=== PATIENT | female | born 1950 | race Caucasian/White ===

== ENCOUNTER 2018-04-21 23:12 | Inpatient (IN) | payer OTHER ==
--- NOTE | 2018-04-21 23:46 | PDOC ---
Attending Attestation - HPI HPI: 04/22/18 00:00 The patient is a 67 year old female, with a significant past medical history of MR, who presents to the emergency department via EMS from [place] with, sudden onset shortness of breath, low O2 saturation, and tachycardia. Patient is DNR. Social history: [facility] resident. DNR. <YamilethAubrie - Last Filed: 04/22/18 00:00> - Physicial Exam PE: GENERAL: +Quadriplegia secondary to cerebral palsy. +Flexed and unable to move. +Afebrile. In no acute distress HEAD: No signs of trauma EYES: PERRLA, EOMI, sclera anicteric, conjunctiva clear ENT: Auricles normal inspection, hearing grossly normal, nares patent.. Moist mucosa LUNGS: Breath sounds equal, clear to auscultation bilaterally. No wheezes, and no crackles HEART: Regular rate and rhythm, normal S1 and S2, no murmurs, rubs or gallops ABDOMEN: +PEG tube in place in LUQ. Soft, nontender, normoactive bowel sounds. No guarding, no rebound. No masses EXTREMITIES: +Bilateral legs are withered. +Arm and leg growth is stunted. + Bilateral clubbed feet. +Flexed and unable to move. +Left proximal humeral fracture. No cords, erythema, or tenderness NEUROLOGICAL: Cranial nerves II through XII grossly intact. Normal speech, normal gait SKIN: Warm, Dry, normal turgor, no rashes or lesions noted. 04/22/18 00:30 - Medical Decision Making Documentation prepared by SWATHI Gillespie, acting as medical referral coordinator for Lynda Acuna MD. 04/22/18 00:30 <Eugenia Rendon - Last Filed: 04/22/18 00:30> - Resident Resident Name: Rosio Lund - ED Attending Attestation I have performed the following: I have examined & evaluated the patient, The case was reviewed & discussed with the resident, I agree w/resident's findings & plan - Medical Decision Making 04/22/18 01:50 Pt has an aspiration pneumonia; 17 WBC with left shift; +lactic acid; Pt is flu negative, CXR right sided infiltrate Pt will be treated with ABX and admitted. <Lynda Acuna - Last Filed: 04/22/18 06:13> Attestations - Attestations 04/22/18 00:00 Documentation prepared by Aubrie Carson, acting as medical referral coordinator for Lynda Acuna MD. <Aubrie Carson - Last Filed: 04/22/18 00:00>
--- NOTE | 2018-04-21 23:47 | PDOC ---
History of Present Illness - General Chief Complaint: Shortness of Breath Stated Complaint: Shortness of Breath Time Seen by Provider: 04/21/18 23:20 History Source: Patient - History of Present Illness Initial Comments: 04/22/18 00:[address] Marlon Lott from conversation with staff at [place] The patient is a 67 year old female with a PMH of cerebral anoxic brain injury, quadriplegia, COPD (on O2), L arm fracture who presents to our ED tonight following an episode of desaturation (SpO2 88%) and diaphoresis. At baseline patient is GCS 3. As per MOLST form, patient is DNR but can be intubated. Past History - Past Medical History Allergies/Adverse Reactions: Allergies Allergy/AdvReac Type Severity Reaction Status Date / Time No Known Allergies Allergy Verified 04/22/18 02:54 Home Medications: Ambulatory Orders Alendronate Sodium [Binosto] 70 mg GT WEEKLY 04/22/18 Arformoterol Tartrate [Brovana] 15 mcg IH BID 04/22/18 Ascorbic Acid 500 mg GT BID 04/22/18 Budesonide 1 mg IH BID 04/22/18 Calcium Carbonate/Vitamin D3 [Oystercal-D 500 mg-400 Unit Tb] 2 each GT HS 04/22 Ipratropium/Albuterol Sulfate [Iprat-Albut 0.5-3(2.5) mg/3 ml] 1 vial IH QID Lactulose 30 ml GT DAILY 04/22/18 Metoclopramide HCl 5 mg PO QID 04/22/18 Metoprolol Tartrate [Lopressor -] 50 mg GT BID 04/22/18 Olopatadine HCl 1 drop OU DAILY 04/22/18 Omeprazole 20 mg GT DAILY 04/22/18 Simvastatin 40 mg GT DAILY 04/22/18 Topiramate 1 tab GT BID 04/22/18 Valproic Acid (As Sodium Salt) [Valproic Acid] 15 ml GT Q12H 04/22/18 Zinc Oxide [Boudreauxs] 10 gm TP BID 04/22/18 levETIRAcetam [levETIRAcetam ORAL SUSPENSION] 15 ml GT BID 04/22/18 Review of Systems - Review of Systems Able to Perform ROS?: No (GCS 3) *Physical Exam - Physical Exam Comments: 04/22/18 03:50 SpO2 88% on 15L NC Drowsy, semi-arousable to painful stimulation (@ baseline) Neck contraction B/L LE edema Scattered rhonchi ED Treatment Course - LABORATORY CBC & Chemistry Diagram: 04/22/18 00:35 04/22/18 00:35 Medical Decision Making - Medical Decision Making 04/22/18 00:14 67 year old female with severe anoxic brain injury with resulting CP + COPD, GCS 3 @ baseline, presents with episode of desaturation to high 80's. SpO2 88% on 15L RA, respiratory paged for BIPAP as patient is poor candidate for RSI intubation given severe contraction 2/2 CP. Will obtain basic labs and CXR for possible aspiration PNA. Also consider COPD exacerbation, Influenza, Viral URI , HCAP. 04/22/18 01:38 Leukocytosis 17.5 Lactic Acid 2.2 Influenza A negative My read of CXR shows severe scoliosis - no noted infiltrate/consolidation, however poor film. At this time suspect Aspiration PNA will give OTD of Ampillicin-Sulbactam 04/22/18 01:52 Hospitalist paged for admission 04/22/18 02:30 Patient admitted to inpatient hospital service 04/22/18 02:31 Repeat Lactic Acid pending Clinical Impression: Aspiration PNA *DC/Admit/Observation/Transfer Diagnosis at time of Disposition: Pneumonia - Discharge Dispostion Condition at time of disposition: Fair Decision to Admit order: Yes - Referrals - Patient Instructions - Post Discharge Activity
[2018-04-22 00:54] LABS: BASO % 0.4 % (0-2.0); EOS % 0.9 % (0-4.5); HEMATOCRIT 40.5 % (32.4-45.2); LYMPH % 3.3 % (8-40); MCH 32.9 pg (25.7-33.7); MCHC 34.5 g/dl (32.0-36.0); MEAN CELL VOLUME 95.2 fl (80-96); MEAN PLT VOLUME 9.9 fl (7.5-11.1); MONO % 5.9 % (3.8-10.2); NEUT % 89.5 % (42.8-82.8); PLATELET COUNT 198 K/MM3 (134-434); RBC 4.25 M/mm3 (3.60-5.2); RDW 13.1 % (11.6-15.6); WHITE BLOOD COUNT 17.5 K/mm3 (4.0-10.0)
[2018-04-22 01:12] LABS: INR 0.97 (0.83-1.09); PROTHROMBIN TIME (PATIENT) 11.5 SEC (9.7-13.0)
[2018-04-22 01:20] LABS: VENOUS PC02 55.4 mmHg (38-52); VENOUS PH 7.41 (7.32-7.42)
[2018-04-22 01:36] LABS: ALBUMIN 2.4 g/dl (3.4-5.0); ALK PHOS 251 U/L (45-117); ANION GAP 5 MMOL/L (8-16); BILIRUBIN,TOTAL 0.2 mg/dL (0.2-1); BLOOD UREA NITROGEN 19 mg/dL (7-18); CALCIUM 7.6 mg/dL (8.5-10.1); CHLORIDE 94 mmol/L (98-107); CO2 37 mmol/L (21-32); CREATININE 0.3 mg/dL (0.55-1.3); GLUCOSE,RANDOM 152 mg/dL (74-106); POTASSIUM 4.1 mmol/L (3.5-5.1); SGOT/AST 41 U/L (15-37); SGPT/ALT 30 U/L (13-61); SODIUM 136 mmol/L (136-145); TOT PROT 6.4 g/dl (6.4-8.2)
[2018-04-22] MEDS ORDERED: SODIUM CHLORIDE 0.9% 500 ML INFUS.BAG IV ONE (01:37)
[2018-04-22] MEDS ORDERED: AMPICILLIN NA/SULBACTAM NA 1.5 GM in SODIUM CHLORIDE 100 ML IVPB ONE (01:52)
--- NOTE | 2018-04-22 02:38 | PN ---
Teaching Attending Note Name of Resident: Fay Healy ATTENDING PHYSICIAN STATEMENT I saw and evaluated the patient. I reviewed the resident's note and discussed the case with the resident. I agree with the resident's findings and plan as documented. SUBJECTIVE: Patient is a 67 year old woman with a PMH of cerebral anoxic brain injury, quadriplegia, COPD (on O2), L arm fracture who presents to our ED tonight following an episode of desaturation (SpO2 88%) and diaphoresis. At baseline patient is GCS 3. As per MOLST form, patient is DNR but can be intubated. OBJECTIVE: Nonverbal, vegetative with eyes shut; on Bipap Vital Signs Period Temp Pulse Resp BP Sys/Restrepo Pulse Ox Last 24 Hr 96 HEENT: No Jaundice, eye redness or discharge, Normocephalic, atraumatic. External ears are normal; No nasal discharge. Neck: Supple, nontender. No palpable adenopathy or thyromegaly. No JVD Chest: Good effort. Clear to auscultation and percussion. Heart: Regular. No S3, rub or murmur Abdomen: Not distended, soft, nontender and no HSM. PEG tube in place in LUQ. No rebound or guarding. Normoactive bowel sounds. Ext: Peripheral pulses intact. No leg edema. Limb contractures with stunted growth of limbs; club feet. Skin: Warm and dry. No petechiae, rash or ecchymosis. Neuro: Vegetative, nonverbal; eyes shut. Quadriplegia Current Medications Generic Name Dose Route Start Last Admin Trade Name Freq PRN Reason Stop Dose Admin Ampicillin Sodium/Sulbactam 100 mls @ 200 mls/hr 04/22/18 01:52 Sodium 1.5 gm/ Sodium Chloride IVPB 04/22/18 02:21 ONCE ONE Sodium Chloride 1,000 mls @ 75 mls/hr 04/22/18 02:15 Normal Saline - IV ASDIR FRANCIE Sodium Chloride 1,000 ml 04/22/18 01:37 04/22/18 02:08 Normal Saline - IV 04/22/18 01:38 1,000 ml ONCE ONE Administration Abnormal Lab Results 04/22/18 04/22/18 04/22/18 00:05 00:35 00:35 WBC 17.5 H Absolute Neuts (auto) 15.7 H Neutrophils % 89.5 H Lymphocytes % 3.3 L PTT (Actin FS) 18.0 L POC VBG pCO2 POC VBG pO2 Mixed VBG HCO3 Chloride 94 L Carbon Dioxide 37 H Anion Gap 5 L BUN 19 H Creatinine 0.3 L Random Glucose 152 H Lactic Acid Calcium 7.6 L AST 41 H Alkaline Phosphatase 251 H Albumin 2.4 L 04/22/18 04/22/18 00:35 00:50 WBC Absolute Neuts (auto) Neutrophils % Lymphocytes % PTT (Actin FS) POC VBG pCO2 55.4 H POC VBG pO2 185.0 H* Mixed VBG HCO3 34.3 H Chloride Carbon Dioxide Anion Gap BUN Creatinine Random Glucose Lactic Acid 2.2 H* Calcium AST Alkaline Phosphatase Albumin ASSESSMENT AND PLAN: 1. Sepsis due to Healthcare-associated Pneumonia/Acute hypoxic respiratory failure - Likely precipitated by aspiration pneumonia. Flu swab negative. Poor quality CXR - rotated with severe scoliosis - possible RLL/RML infiltrate. Treat HCAP with IV zosyn and vancomycin. Get UA, urine legionella antigen, continue IV NS and trend lactic acid. Consult ID and Pulmonary. Get ABG and continue BIPAP. Continue comprehensive care for anoxic brain injury including intense nutritional support, seizure precautions, aspiration precautions and frequent repositioning to prevent decubitus ulcers. Continue Keppra and valproic acid. 2. Hypoalbuminemia - Possibly due to combined effects of malnutrition and inflammation associated with comorbid chronic conditions. Will ensure adequate dietary protein intake via PEG and also consult director medicaid. 3. DVT prophylaxis - Lovenox 40 mg SQ q 24 hours. 4. Advance directives - DNR
--- NOTE | 2018-04-22 03:02 | HP ---
CHIEF COMPLAINT:shortness of breath PCP: HISTORY OF PRESENT ILLNESS: Patient is a 67 year old female with past medical history of cerebral anoxic injury, quadriplegia, COPD (on 2L O2), was brought in from [facility] as patient was noted to be desaturating at 88% with increased heart rate and diaphoresis. History is limited by fdc notes. Attempted to call CT , but was told to call in the morning as no one would be available to give information at this time. ER course was notable for: (1)WBC 17.5, Lactic acid 2.2 (2)Ampi-sulbatam 1.5g (3)IV NS x1 (4)CXR: Right lung infiltrates Recent Travel:denies PAST MEDICAL HISTORY: cerebral anoxic injury quadriplegia COPD PAST SURGICAL HISTORY: PEG tube placement Social History: Smoking:denies Alcohol:denies Drugs: denies Family History: unknown Allergies No Known Allergies Allergy (Verified 04/22/18 02:54) HOME MEDICATIONS: REVIEW OF SYSTEMS CONSTITUTIONAL: Absent: fever, chills, diaphoresis, generalized weakness, malaise, loss of appetite, weight change HEENT: Absent: rhinorrhea, nasal congestion, throat pain, throat swelling, difficulty swallowing, mouth swelling, ear pain, eye pain, visual changes CARDIOVASCULAR: Absent: chest pain, syncope, palpitations, irregular heart rate, lightheadedness , peripheral edema RESPIRATORY: Absent: cough, shortness of breath, dyspnea with exertion, orthopnea, wheezing, stridor, hemoptysis GASTROINTESTINAL: Absent: abdominal pain, abdominal distension, nausea, vomiting, diarrhea, constipation, melena, hematochezia GENITOURINARY: Absent: dysuria, frequency, urgency, hesitancy, hematuria, flank pain, genital pain MUSCULOSKELETAL: Absent: myalgia, arthralgia, joint swelling, back pain, neck pain SKIN: Absent: rash, itching, pallor HEMATOLOGIC/IMMUNOLOGIC: Absent: easy bleeding, easy bruising, lymphadenopathy, frequent infections ENDOCRINE: Absent: unexplained weight gain, unexplained weight loss, heat intolerance, cold intolerance NEUROLOGIC: Absent: headache, focal weakness or paresthesias, dizziness, unsteady gait, seizure, mental status changes, bladder or bowel incontinence PSYCHIATRIC: Absent: anxiety, depression, suicidal or homicidal ideation, hallucinations. PHYSICAL EXAMINATION Vital Signs - 24 hr 04/21/18 04/22/18 23:25 00:09 Temperature 99.8 F H Pulse Rate 95 H Pulse Rate [ 95 H Right Radial] Respiratory 19 Rate Blood Pressure 136/76 Blood Pressure 136/76 [Right Arm] O2 Sat by Pulse 93 L 96 Oximetry (%) GENERAL: nonresponsive to voice or touch, baseline GCS 3, on bipap HEAD: Normal with no signs of trauma. LUNGS: Decreased breath sounds on bilateral anterior chest HEART: Regular rate and rhythm, normal S1 and S2 without murmur, rub or gallop. ABDOMEN: Soft, nontender, not distended, normoactive bowel sounds, +PEG tube in place. UPPER EXTREMITIES: b/l arms contracted, flexed. No peripheral edema. LOWER EXTREMITIES: b/l clubbed feet. No peripheral edema. NEUROLOGICAL: unable to assess as patient is nonresponsive and unable to cooperate SKIN: Warm, dry, normal turgor, no rashes or lesions noted. Laboratory Results - last 24 hr 04/22/18 04/22/18 04/22/18 00:05 00:35 00:35 WBC 17.5 H RBC 4.25 Hgb 14.0 Hct 40.5 MCV 95.2 MCH 32.9 MCHC 34.5 RDW 13.1 Plt Count 198 MPV 9.9 Absolute Neuts (auto) 15.7 H Neutrophils % 89.5 H Lymphocytes % 3.3 L Monocytes % 5.9 Eosinophils % 0.9 Basophils % 0.4 Nucleated RBC % 0 PT with INR 11.50 INR 0.97 PTT (Actin FS) 18.0 L VBG pH POC VBG pCO2 POC VBG pO2 Mixed VBG HCO3 Sodium 136 Potassium 4.1 Chloride 94 L Carbon Dioxide 37 H Anion Gap 5 L BUN 19 H Creatinine 0.3 L Creat Clearance w eGFR > 60 Random Glucose 152 H Lactic Acid Calcium 7.6 L Total Bilirubin 0.2 AST 41 H ALT 30 Alkaline Phosphatase 251 H Total Protein 6.4 Albumin 2.4 L Influenza A (Rapid) Influenza B (Rapid) 04/22/18 04/22/18 04/22/18 00:35 00:50 00:50 WBC RBC Hgb Hct MCV MCH MCHC RDW Plt Count MPV Absolute Neuts (auto) Neutrophils % Lymphocytes % Monocytes % Eosinophils % Basophils % Nucleated RBC % PT with INR INR PTT (Actin FS) VBG pH 7.41 POC VBG pCO2 55.4 H POC VBG pO2 185.0 H* Mixed VBG HCO3 34.3 H Sodium Potassium Chloride Carbon Dioxide Anion Gap BUN Creatinine Creat Clearance w eGFR Random Glucose Lactic Acid 2.2 H* Calcium Total Bilirubin AST ALT Alkaline Phosphatase Total Protein Albumin Influenza A (Rapid) Negative Influenza B (Rapid) Negative ASSESSMENT/PLAN: Patient is a 67 year old female with past medical history of cerebral anoxic injury, quadriplegia, COPD (on 2L O2), was brought in from [facility] as patient was noted to be desaturating at 88% with increased heart rate and diaphoresis. #Acute hypoxic respiratory failure likely 2/2 Healthcare acquired, aspiration pneumonia -Leukocytosis with left shift -lactic acidosis 2.2, will continue to trend -Flu swab negative -CXR: right lung infiltrates -Unasyn 1.5g given at the ED -Will start IV vanc/zosyn -Blood cultures pending -UA, urine legionella antigen ordered -Continue bipap for now. -ABG ordered -IV NS hydration -ID (Dr. Diaz) consulted. -Pulmonology (Dr. Guerra) consulted. -Aspiration precautions -Seizure precautions #Hx of cerebral anoxic injury -Continue current medications #FEN -IV NS @7cc/hr -Electrolytes wnl, routine bmp monitoring -PEG tube feeding #Prophylaxis -Lovenox 40mg sq daily #Disposition -DNR -admit to med-surg Visit type - Emergency Visit Emergency Visit: Yes ED Registration Date: 04/22/18 Care time: The patient presented to the Emergency Department on the above date and was hospitalized for further evaluation of their emergent condition. - New Patient This patient is new to me today: Yes Date on this admission: 04/22/18 - Critical Care Critical Care patient: No
[2018-04-22] MEDS ORDERED: VANCOMYCIN 1,000 MG in DEXTROSE 5%-WATER - 250 ML IVPB SCH (03:15)
[2018-04-22] MEDS: SODIUM CHLORIDE 1,000 ML IV SCH ×2 (03:35→12:50)
[2018-04-22 04:12] LABS: ARTERIAL BLD GAS O2 SATURATION 97.8 % (90-98.9); ARTERIAL BLOOD GAS BASE EXCESS 9.9 meq/l (-2-2); ARTERIAL BLOOD GAS PCO2 71.4 mmHg (35-45); ARTERIAL BLOOD GAS pH 7.35 (7.35-7.45); CARBOXYHEMOGLOBIN 0.7 gm% (0.5-2.0)
[2018-04-22 04:15] LABS: ALLENS TEST POSITIVE
[2018-04-22] MEDS ORDERED: VANCOMYCIN 1 GM in D5W (PRE-DOCKED) 1,000 MG/250 ML IVPB ONE (04:30)
[2018-04-22] MEDS ORDERED: VANCOMYCIN 1 GRAM (PRE-DOCKED) 1,000 MG/250 ML BAG IVPB ONE (04:41)
[2018-04-22] MEDS ORDERED: ALBUTEROL SO4 2.5/IPRATROPIUM 0.5 INH SOL 3 ML VIAL.NEB. NEB ONE ×2 (05:00→09:04)
[2018-04-22] MEDS ORDERED: PATIENT'S OWN MEDICATION (NON-FORMULARY) (Alendronate Sodium [Binosto] 70 MG) GT SCH (05:15)
[2018-04-22 05:23] LABS: BASO % 0.7 % (0-2.0); EOS % 1.1 % (0-4.5); HEMATOCRIT 39.5 % (32.4-45.2); HEMOGLOBIN 13.6 GM/dL (10.7-15.3); MCH 32.6 pg (25.7-33.7); MCHC 34.5 g/dl (32.0-36.0); MEAN CELL VOLUME 94.3 fl (80-96); MEAN PLT VOLUME 9.7 fl (7.5-11.1); MONO % 7.9 % (3.8-10.2); NEUT % 83.3 % (42.8-82.8); PLATELET COUNT 164 K/MM3 (134-434); RBC 4.19 M/mm3 (3.60-5.2); RDW 12.8 % (11.6-15.6); WHITE BLOOD COUNT 16.5 K/mm3 (4.0-10.0)
[2018-04-22 06:57] LABS: URINE APPEARANCE SLCLOUDY; URINE BILIRUBIN NEGATIVE (<2.0 mg/dL); URINE COLOR YELLOW; URINE GLUCOSE (UA) NEGATIVE (NEGATIVE); URINE KETONE NEGATIVE (NEGATIVE); URINE LEUK ESTERASE TRACE (NEGATIVE); URINE NITRITE NEGATIVE (NEGATIVE); URINE PROTEIN 1+ (NEGATIVE); URINE UROBILINOGEN NEGATIVE mg/dL (0.2-1.0)
[2018-04-22 07:04] LABS: EPI CELLS RARE /HPF (FEW); URINE HYALINE CAST 3 /lpf
[2018-04-22 07:45] LABS: ALBUMIN 2.6 g/dl (3.4-5.0); ALK PHOS 244 U/L (45-117); ANION GAP 4 MMOL/L (8-16); BILIRUBIN,TOTAL 0.1 mg/dL (0.2-1); BLOOD UREA NITROGEN 17 mg/dL (7-18); CALCIUM 8.1 mg/dL (8.5-10.1); CHLORIDE 96 mmol/L (98-107); CO2 38 mmol/L (21-32); CREATININE 0.2 mg/dL (0.55-1.3); GLUCOSE,RANDOM 104 mg/dL (74-106); MAGNESIUM 2.4 mg/dL (1.8-2.4); POTASSIUM 3.6 mmol/L (3.5-5.1); SGOT/AST 21 U/L (15-37); SGPT/ALT 26 U/L (13-61); SODIUM 138 mmol/L (136-145); TOT PROT 6.5 g/dl (6.4-8.2)
[2018-04-22] MEDS: ALBUTEROL SO4 2.5/IPRATROPIUM 0.5 INH SOL 3 ML VIAL.NEB. NEB SCH ×4 (09:17→20:18)
[2018-04-22] MEDS ORDERED: methylPREDNISolone NA SUCC 125 MG/2 ML VIAL IVPUSH ONE (09:17)
[2018-04-22] MEDS: levETIRAcetam 500 MG/5 ML ORAL SOLUTION (UNIT-DOSE CUPS) GT SCH ×2 (09:21→22:21)
[2018-04-22] MEDS: METOCLOPRAMIDE HCL 5 MG/5 ML UNIT DOSE CUP GT SCH ×4 (09:21→22:21)
[2018-04-22] MEDS: RANITIDINE HCL 150 MG/10 ML UNIT-DOSE GT SCH ×2 (09:22→21:32)
[2018-04-22] MEDS: VALPROATE SODIUM 250 MG/5 ML UNIT DOSE CUP GT SCH ×2 (09:22→21:32)
[2018-04-22] MEDS: ASCORBIC ACID 500 MG TABLET (FP) GT SCH ×2 (09:23→21:32)
[2018-04-22] MEDS: METOPROLOL TARTRATE 50 MG TABLET (FP) GT SCH ×2 (09:23→21:32)
[2018-04-22] MEDS: LACTULOSE 20 GM/30 ML UDC (FOR ORAL USE ONLY) GT SCH (09:23)
[2018-04-22] MEDS: ENOXAPARIN NA (PORCINE) 40 MG/0.4 ML DISP.SYRIN SQ SCH (09:23)
[2018-04-22] MEDS ORDERED: methylPREDNISolone NA SUCC 125 MG/2 ML VIAL ONE (09:25)
[2018-04-22] MEDS ORDERED: PIPERACILLIN/TAZOB 3.375 GM 3.375 GM/50 ML BAG IVPB ONE (09:26)
[2018-04-22] MEDS: ARFORMOTEROL TARTRATE 15 MCG/2 ML VIAL NEB SCH ×2 (09:56→20:18)
[2018-04-22] MEDS ORDERED: OLOPATADINE HCL OU SCH (10:00)
--- NOTE | 2018-04-22 10:30 | EKG ---
Test Reason : Blood Pressure : / mmHG Vent. Rate : 093 BPM Atrial Rate : 093 BPM P-R Int : 116 ms QRS Dur : 066 ms QT Int : 340 ms P-R-T Axes : 052 071 039 degrees QTc Int : 422 ms NORMAL SINUS RHYTHM NORMAL ECG NO PREVIOUS ECGS AVAILABLE Confirmed by DARÍO GARCIA MD ([id number]) on 04/22/2018 10:30:25 AM Referred By: Confirmed By:DARÍO GARCIA MD
[2018-04-22] MEDS: PIPERACILLIN/TAZOB 3.375 GM 3.375 GM in DEXTROSE 5%-WATER - 50 ML IVPB SCH ×3 (10:41→17:22)
[2018-04-22] MEDS ORDERED: POTASSIUM PHOSPHATE 25 MM in DEXTROSE 5%-WATER - 500 ML IVPB ONE (13:37)
--- NOTE | 2018-04-22 13:37 | PN ---
Teaching Attending Note Name of Resident: Todd Garcia ATTENDING PHYSICIAN STATEMENT I saw and evaluated the patient. I reviewed the resident's note and discussed the case with the resident. I agree with the resident's findings and plan as documented with exceptions below. SUBJECTIVE: Patient seen and examined, tachypneic, aide at bedside, non verbal at baseline, unable to do ROS. OBJECTIVE: Vital Signs Period Temp Pulse Resp BP Sys/Restrepo Pulse Ox Last 24 Hr 99.4 F-99.8 F 83-100 19-27 128-155/71-88 92-100 Intake & Output 04/19/18 04/20/18 04/21/18 04/22/18 23:59 23:59 23:59 23:59 Weight 89 lb 3.2 oz General: lying in bed, tachypneic, coarse audible rales Chest: poor effort, coarse audible rales, no wheezing, decreased air entry Abdomen:soft, ND, positive bowel sounds, PEG in place Extremities: contractures Home Medications Medication Instructions Recorded Alendronate Sodium [Binosto] 70 mg GT WEEKLY 04/22/18 Arformoterol Tartrate [Brovana] 15 mcg IH BID 04/22/18 Ascorbic Acid 500 mg GT BID 04/22/18 Budesonide 1 mg IH BID 04/22/18 Calcium Carbonate/Vitamin D3 2 each GT HS 04/22/18 [Oystercal-D 500 mg-400 Unit Tb] Ipratropium/Albuterol Sulfate 1 vial IH QID 04/22/18 [Iprat-Albut 0.5-3(2.5) mg/3 ml] Lactulose 30 ml GT DAILY 04/22/18 Metoclopramide HCl 5 mg PO QID 04/22/18 Metoprolol Tartrate [Lopressor -] 50 mg GT BID 04/22/18 Olopatadine HCl 1 drop OU DAILY 04/22/18 Omeprazole 20 mg GT DAILY 04/22/18 Simvastatin 40 mg GT DAILY 04/22/18 Topiramate 1 tab GT BID 04/22/18 Valproic Acid (As Sodium Salt) 15 ml GT Q12H 04/22/18 [Valproic Acid] Zinc Oxide [Boudreauxs] 10 gm TP BID 04/22/18 levETIRAcetam [levETIRAcetam ORAL 15 ml GT BID 04/22/18 SUSPENSION] Active Medications Albuterol/Ipratropium (Duoneb -) 1 amp NEB RQID FRANCIE Last Admin: 04/22/18 12:16 Dose: 1 amp Arformoterol Tartrate (Brovana (Restricted To Pulmonology/Resp) -) 1 amp NEB RBID FRANCIE Last Admin: 04/22/18 09:56 Dose: 1 amp Ascorbic Acid (Vitamin C -) 500 mg GT BID FRANCIE Last Admin: 04/22/18 09:23 Dose: 500 mg Atorvastatin Calcium (Lipitor -) 20 mg GT HS FRANCIE Calcium Carbonate/Cholecalciferol (Os-Jamar 500+D -) 2 tab GT HS FRANCIE Enoxaparin Sodium (Lovenox -) 40 mg SQ DAILY FRANCIE Last Admin: 04/22/18 09:23 Dose: 40 mg Sodium Chloride (Normal Saline -) 1,000 mls @ 75 mls/hr IV ASDIR FRANCIE Last Admin: 04/22/18 12:50 Dose: 75 mls/hr Vancomycin HCl 1,000 mg/ (Dextrose) 250 mls @ 200 mls/hr IVPB Q24H FRANCIE; Protocol Piperacillin Sod/Tazobactam (Sod 3.375 gm/ Dextrose) 50 mls @ 100 mls/hr IVPB Q8H-IV FRANCIE; Protocol Piperacillin Sod/Tazobactam (Sod 3.375 gm/ Dextrose) 50 mls @ 100 mls/hr IVPB Q8H-IV FRANCIE Stop: 04/22/18 18:29 Last Admin: 04/22/18 12:50 Dose: 100 mls/hr Potassium Chloride/Dextrose/Sod Cl (D5-1/2ns+20 Meq Kcl -) 20 meq in 1,000 mls @ 50 mls/hr IV ASDIR FRANCIE Lactulose (Cephulac (Oral Use)) 20 gm GT DAILY FRANCIE Last Admin: 04/22/18 09:23 Dose: 20 gm Levetiracetam (Keppra Oral Solution -) 1,500 mg GT BID [facility] Last Admin: 04/22/18 09:21 Dose: 1,500 mg Methylprednisolone Sodium Succinate (Solu-Medrol -) 40 mg IVPUSH Q6H-IV FRANCIE Metoclopramide HCl (Reglan Oral Solution -) 5 mg GT QID [facility] Last Admin: 04/22/18 09:21 Dose: 5 mg Metoprolol Tartrate (Lopressor -) 50 mg GT BID [facility] Last Admin: 04/22/18 09:23 Dose: 50 mg Non-Formulary Medication (Budesonide [Budesonide]) 1 mg IH BID [facility] Non-Formulary Medication (Olopatadine Hcl [Olopatadine Hcl]) 1 drop OU DAILY [facility] Non-Formulary Medication (Zinc Oxide [Boudreauxs]) 10 gm TP BID [facility] Ranitidine HCl (Zantac Oral Solution -) 150 mg GT BID [facility] Last Admin: 04/22/18 09:22 Dose: 150 mg Valproate Sodium (Depakene -) 750 mg GT BID [facility] Last Admin: 04/22/18 09:22 Dose: 750 mg Laboratory Results - last 24 hr 04/22/18 04/22/18 04/22/18 00:05 00:24 00:35 WBC 17.5 H RBC 4.25 Hgb 14.0 Hct 40.5 MCV 95.2 MCH 32.9 MCHC 34.5 RDW 13.1 Plt Count 198 MPV 9.9 Absolute Neuts (auto) 15.7 H Neutrophils % 89.5 H Lymphocytes % 3.3 L Monocytes % 5.9 Eosinophils % 0.9 Basophils % 0.4 Nucleated RBC % 0 PT with INR 11.50 INR 0.97 PTT (Actin FS) 18.0 L Puncture Site Left radial ABG pH 7.35 ABG pCO2 at Pt Temp 71.4 H* ABG pO2 at Pt Temp 110.0 H ABG HCO3 38.0 H ABG O2 Sat (Measured) 97.8 ABG O2 Content 18.1 ABG Base Excess 9.9 H Scott Test Positive VBG pH POC VBG pCO2 POC VBG pO2 Mixed VBG HCO3 Carboxyhemoglobin 0.7 Methemoglobin 0.2 L O2 Delivery Device Bipap Oxygen Flow Rate 100 Vent Rate 12 Sodium Potassium Chloride Carbon Dioxide Anion Gap BUN Creatinine Creat Clearance w eGFR Random Glucose Lactic Acid Calcium Phosphorus Magnesium Total Bilirubin AST ALT Alkaline Phosphatase Total Protein Albumin Urine Color Urine Appearance Urine pH Ur Specific [place] Urine Protein Urine Glucose (UA) Urine Ketones Urine Blood Urine Nitrite Urine Bilirubin Urine Urobilinogen Ur Leukocyte Esterase Urine WBC (Auto) Urine RBC (Auto) Ur Epithelial Cells Hyaline Casts Influenza A (Rapid) Influenza B (Rapid) 04/22/18 04/22/18 04/22/18 00:35 00:35 00:50 WBC RBC Hgb Hct MCV MCH MCHC RDW Plt Count MPV Absolute Neuts (auto) Neutrophils % Lymphocytes % Monocytes % Eosinophils % Basophils % Nucleated RBC % PT with INR INR PTT (Actin FS) Puncture Site ABG pH ABG pCO2 at Pt Temp ABG pO2 at Pt Temp ABG HCO3 ABG O2 Sat (Measured) ABG O2 Content ABG Base Excess Scott Test VBG pH POC VBG pCO2 POC VBG pO2 Mixed VBG HCO3 Carboxyhemoglobin Methemoglobin O2 Delivery Device Oxygen Flow Rate Vent Rate Sodium 136 Potassium 4.1 Chloride 94 L Carbon Dioxide 37 H Anion Gap 5 L BUN 19 H Creatinine 0.3 L Creat Clearance w eGFR > 60 Random Glucose 152 H Lactic Acid 2.2 H* Calcium 7.6 L Phosphorus Magnesium Total Bilirubin 0.2 AST 41 H ALT 30 Alkaline Phosphatase 251 H Total Protein 6.4 Albumin 2.4 L Urine Color Urine Appearance Urine pH Ur Specific [place] Urine Protein Urine Glucose (UA) Urine Ketones Urine Blood Urine Nitrite Urine Bilirubin Urine Urobilinogen Ur Leukocyte Esterase Urine WBC (Auto) Urine RBC (Auto) Ur Epithelial Cells Hyaline Casts Influenza A (Rapid) Negative Influenza B (Rapid) Negative 04/22/18 04/22/18 04/22/18 00:50 02:31 04:48 WBC 16.5 H RBC 4.19 Hgb 13.6 Hct 39.5 MCV 94.3 MCH 32.6 MCHC 34.5 RDW 12.8 Plt Count 164 MPV 9.7 Absolute Neuts (auto) 13.8 H Neutrophils % 83.3 H Lymphocytes % 7.0 L D Monocytes % 7.9 Eosinophils % 1.1 Basophils % 0.7 Nucleated RBC % 0 PT with INR INR PTT (Actin FS) Puncture Site ABG pH ABG pCO2 at Pt Temp ABG pO2 at Pt Temp ABG HCO3 ABG O2 Sat (Measured) ABG O2 Content ABG Base Excess Scott Test VBG pH 7.41 POC VBG pCO2 55.4 H POC VBG pO2 185.0 H* Mixed VBG HCO3 34.3 H Carboxyhemoglobin Methemoglobin O2 Delivery Device Oxygen Flow Rate Vent Rate Sodium Potassium Chloride Carbon Dioxide Anion Gap BUN Creatinine Creat Clearance w eGFR Random Glucose Lactic Acid 1.0 Calcium Phosphorus Magnesium Total Bilirubin AST ALT Alkaline Phosphatase Total Protein Albumin Urine Color Urine Appearance Urine pH Ur Specific [place] Urine Protein Urine Glucose (UA) Urine Ketones Urine Blood Urine Nitrite Urine Bilirubin Urine Urobilinogen Ur Leukocyte Esterase Urine WBC (Auto) Urine RBC (Auto) Ur Epithelial Cells Hyaline Casts Influenza A (Rapid) Influenza B (Rapid) 04/22/18 04/22/18 05:30 05:58 WBC RBC Hgb Hct MCV MCH MCHC RDW Plt Count MPV Absolute Neuts (auto) Neutrophils % Lymphocytes % Monocytes % Eosinophils % Basophils % Nucleated RBC % PT with INR INR PTT (Actin FS) Puncture Site ABG pH ABG pCO2 at Pt Temp ABG pO2 at Pt Temp ABG HCO3 ABG O2 Sat (Measured) ABG O2 Content ABG Base Excess Scott Test VBG pH POC VBG pCO2 POC VBG pO2 Mixed VBG HCO3 Carboxyhemoglobin Methemoglobin O2 Delivery Device Oxygen Flow Rate Vent Rate Sodium 138 Potassium 3.6 Chloride 96 L Carbon Dioxide 38 H Anion Gap 4 L BUN 17 Creatinine 0.2 L Creat Clearance w eGFR > 60 Random Glucose 104 Lactic Acid Calcium 8.1 L Phosphorus 2.0 L Magnesium 2.4 Total Bilirubin 0.1 L AST 21 ALT 26 Alkaline Phosphatase 244 H Total Protein 6.5 Albumin 2.6 L Urine Color Yellow Urine Appearance Slcloudy Urine pH 7.0 Ur Specific [place] 1.014 Urine Protein 1+ H Urine Glucose (UA) Negative Urine Ketones Negative Urine Blood 1+ H Urine Nitrite Negative Urine Bilirubin Negative Urine Urobilinogen Negative Ur Leukocyte Esterase Trace Urine WBC (Auto) 12 Urine RBC (Auto) 14 Ur Epithelial Cells Rare Hyaline Casts 3 Influenza A (Rapid) Influenza B (Rapid) CXR results and images reviewed ASSESSMENT AND PLAN: 67 yof with PMhx of cerebral anoxic injury, functional quadriplegia, ?COPD on 2L home oxygen admitted with hypoxia, tachycardia and diaphoresis from [facility] -Acute hypoxic/hypercapneic respiratory failure -Suspected aspiration PNA -Acute COPD exacerbation, likely from above -Cerebral anoxic injury with functional quadriplegia -?COPD on 2l home oxygen -Seizure disorder Plan: Trial off bipap, repeat ABG. Zosyn/vancomcin. ID/pulmonay input. Blood cx, sputum cx if available, PNA studies. CT Chest when able and off bipap. IV solumedrol, standing and prn nebs. Hold tube feeds D5-NS Aspiration precautions. Continue home keppra/valproic acid/topiramate/statin/PPI DVTPPX heparin Dispo pending clinical improvement. Plan discussed with aide at bedside.
[2018-04-22] MEDS ORDERED: D5-1/2NS+20 MEQ KCL - 20 MEQ/1,000 ML INFUS.BAG IV SCH (14:00)
[2018-04-22 14:52] LABS: ARTERIAL BLD GAS O2 SATURATION 94.2 % (90-98.9); ARTERIAL BLOOD GAS BASE EXCESS 7.5 meq/l (-2-2); ARTERIAL BLOOD GAS PO2 76.7 mmHg (80-100); ARTERIAL BLOOD GAS pH 7.32 (7.35-7.45)
[2018-04-22 14:56] LABS: ARTERIAL BLOOD GAS PCO2 72.8 mmHg (35-45)
[2018-04-22] MEDS ORDERED: methylPREDNISolone NA SUCC 40 MG/1 ML VIAL IVPUSH SCH (15:00)
--- NOTE | 2018-04-22 15:44 | CON.PULM ---
Consult Consult Specialty:: PULMONARY Referred by:: VENECIA Reason for Consultation:: DESATURATION - History of Present Illness Chief Complaint: NONVERBAL History of Present Illness: Patient is a 67 year old female with past medical history of cerebral anoxic injury, quadriplegia, COPD (on 2L O2), was brought in from [facility] as patient was noted to be desaturating at 88% with increased heart rate and diaphoresis. History is limited by intermediate notes. 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 MANAGER: Yes: Other (ANOXIC BRAIN INJURY) - Alcohol/Substance Use Hx Alcohol Use: (UNABLE TO OBTAIN) - Smoking History Smoking history: Never smoked Have you smoked in the past 12 months: No Home Medications - Allergies Allergies/Adverse Reactions: Allergies Allergy/AdvReac Type Severity Reaction Status Date / Time No Known Allergies Allergy Verified 04/22/18 02:54 - Home Medications Home Medications: Ambulatory Orders Alendronate Sodium [Binosto] 70 mg GT WEEKLY 04/22/18 Arformoterol Tartrate [Brovana] 15 mcg IH BID 04/22/18 Ascorbic Acid 500 mg GT BID 04/22/18 Budesonide 1 mg IH BID 04/22/18 Calcium Carbonate/Vitamin D3 [Oystercal-D 500 mg-400 Unit Tb] 2 each GT HS 04/22 Ipratropium/Albuterol Sulfate [Iprat-Albut 0.5-3(2.5) mg/3 ml] 1 vial IH QID Lactulose 30 ml GT DAILY 04/22/18 Metoclopramide HCl 5 mg PO QID 04/22/18 Metoprolol Tartrate [Lopressor -] 50 mg GT BID 04/22/18 Olopatadine HCl 1 drop OU DAILY 04/22/18 Omeprazole 20 mg GT DAILY 04/22/18 Simvastatin 40 mg GT DAILY 04/22/18 Topiramate 1 tab GT BID 04/22/18 Valproic Acid (As Sodium Salt) [Valproic Acid] 15 ml GT Q12H 04/22/18 Zinc Oxide [Boudreauxs] 10 gm TP BID 04/22/18 levETIRAcetam [levETIRAcetam ORAL SUSPENSION] 15 ml GT BID 04/22/18 Family Disease History - Family Disease History Family History: Unable to Obtain Review of Systems Unable to obtain ROS, reason: UNABLE TO OBTAIN Physical Exam Vital Sings: Vital Signs Temperature 99.4 F 04/22/18 06:08 Pulse Rate 83 04/22/18 13:06 Respiratory Rate 22 H 04/22/18 13:06 Blood Pressure 141/71 04/22/18 13:06 O2 Sat by Pulse Oximetry (%) 94 L 04/22/18 13:06 Constitutional: Yes: Pallor Eyes: Yes: Conjunctiva Clear HENT: Yes: Atraumatic Neck: Yes: Rigid Cardiovascular: Yes: Regular Rate and Rhythm Respiratory: Yes: Rhonchi (SCATTERED MINIMAL) Gastrointestinal: Yes: Soft Extremities: Yes: Other (CONTRACTED) Edema: No Neurological: Yes: Other (POORLY RESPONSIVE) Labs: CBC, BMP 04/22/18 04:48 04/22/18 05:30 ABG Results ABG pH 7.32 (7.35-7.45) L 04/22/18 14:43 ABG pCO2 at Pt Temp 72.8 mmHg (35-45) H* 04/22/18 14:43 ABG pO2 at Pt Temp 76.7 mmHg (80-100) L D 04/22/18 14:43 ABG HCO3 36.3 meq/L (22-26) H 04/22/18 14:43 ABG O2 Sat (Measured) 94.2 % (90-98.9) 04/22/18 14:43 ABG O2 Content 19.0 % vol (15-22) 04/22/18 14:43 ABG Base Excess 7.5 meq/l (-2-2) H 04/22/18 14:43 REST OF LABS NOTED Imaging - Results Chest X-ray: Report Reviewed, Image Reviewed Problem List - Problems (1) Anoxic brain damage Code(s): G93.1 - ANOXIC BRAIN DAMAGE, NOT ELSEWHERE CLASSIFIED (2) Fracture of left humerus Code(s): S42.302A - UNSP FRACTURE OF SHAFT OF HUMERUS, LEFT ARM, INIT (3) Functional quadriplegia Code(s): R53.2 - FUNCTIONAL QUADRIPLEGIA (4) Hypercapnic respiratory failure Code(s): J96.92 - RESPIRATORY FAILURE, UNSPECIFIED WITH HYPERCAPNIA (5) Scoliosis deformity of spine Code(s): M41.9 - SCOLIOSIS, UNSPECIFIED Assessment/Plan HYPERCAPNEIC RESP FAILURE REQUIRING NIPPV POSSIBLE PNEUMONIA/SEVERE SCOLIOSIS POORLY RESPONSIVE (LIKELY NOT HER BASELINE) CONTINUE BIPAP PANCULTURE/IV ANTIBIOTICS/BRONCHODILATORS DVT PROPHYLAXSIS WILL FOLLOW Verenice LIGHT MD
--- NOTE | 2018-04-22 15:53 | PN ---
Physical Exam: SUBJECTIVE: Patient seen and examined lying in bed with bipap spo2 100% pt is nonverbal, quardriplegic OBJECTIVE: Vital Signs Period Temp Pulse Resp BP Sys/Restrepo Pulse Ox Last 24 Hr 99.4 F-99.8 F 83-100 19-27 128-155/71-88 92-100 GENERAL: lying in bed, tachypnic, nonverbal LUNGS: poor respitory effort, crackels heard b/l HEART: Regular rate and rhythm, normal S1 and S2 normal ABDOMEN: Soft, nontender, not distended, normoactive bowel sounds, +PEG tube in place. UPPER EXTREMITIES: b/l arms contracted, flexed. No peripheral edema. LOWER EXTREMITIES: b/l contracted . No peripheral edema. NEUROLOGICAL: unable to assess as patient is nonresponsive and unable to cooperate SKIN: Warm, dry, Laboratory Results - last 24 hr 04/22/18 04/22/18 04/22/18 00:05 00:24 00:35 WBC 17.5 H RBC 4.25 Hgb 14.0 Hct 40.5 MCV 95.2 MCH 32.9 MCHC 34.5 RDW 13.1 Plt Count 198 MPV 9.9 Absolute Neuts (auto) 15.7 H Neutrophils % 89.5 H Lymphocytes % 3.3 L Monocytes % 5.9 Eosinophils % 0.9 Basophils % 0.4 Nucleated RBC % 0 PT with INR 11.50 INR 0.97 PTT (Actin FS) 18.0 L Puncture Site Left radial ABG pH 7.35 ABG pCO2 at Pt Temp 71.4 H* ABG pO2 at Pt Temp 110.0 H ABG HCO3 38.0 H ABG O2 Sat (Measured) 97.8 ABG O2 Content 18.1 ABG Base Excess 9.9 H Scott Test Positive VBG pH POC VBG pCO2 POC VBG pO2 Mixed VBG HCO3 Carboxyhemoglobin 0.7 Methemoglobin 0.2 L O2 Delivery Device Bipap Oxygen Flow Rate 100 Vent Mode Vent Rate 12 Sodium Potassium Chloride Carbon Dioxide Anion Gap BUN Creatinine Creat Clearance w eGFR Random Glucose Lactic Acid Calcium Phosphorus Magnesium Total Bilirubin AST ALT Alkaline Phosphatase Total Protein Albumin Urine Color Urine Appearance Urine pH Ur Specific [place] Urine Protein Urine Glucose (UA) Urine Ketones Urine Blood Urine Nitrite Urine Bilirubin Urine Urobilinogen Ur Leukocyte Esterase Urine WBC (Auto) Urine RBC (Auto) Ur Epithelial Cells Hyaline Casts Influenza A (Rapid) Influenza B (Rapid) 04/22/18 04/22/18 04/22/18 00:35 00:35 00:50 WBC RBC Hgb Hct MCV MCH MCHC RDW Plt Count MPV Absolute Neuts (auto) Neutrophils % Lymphocytes % Monocytes % Eosinophils % Basophils % Nucleated RBC % PT with INR INR PTT (Actin FS) Puncture Site ABG pH ABG pCO2 at Pt Temp ABG pO2 at Pt Temp ABG HCO3 ABG O2 Sat (Measured) ABG O2 Content ABG Base Excess Scott Test VBG pH POC VBG pCO2 POC VBG pO2 Mixed VBG HCO3 Carboxyhemoglobin Methemoglobin O2 Delivery Device Oxygen Flow Rate Vent Mode Vent Rate Sodium 136 Potassium 4.1 Chloride 94 L Carbon Dioxide 37 H Anion Gap 5 L BUN 19 H Creatinine 0.3 L Creat Clearance w eGFR > 60 Random Glucose 152 H Lactic Acid 2.2 H* Calcium 7.6 L Phosphorus Magnesium Total Bilirubin 0.2 AST 41 H ALT 30 Alkaline Phosphatase 251 H Total Protein 6.4 Albumin 2.4 L Urine Color Urine Appearance Urine pH Ur Specific [place] Urine Protein Urine Glucose (UA) Urine Ketones Urine Blood Urine Nitrite Urine Bilirubin Urine Urobilinogen Ur Leukocyte Esterase Urine WBC (Auto) Urine RBC (Auto) Ur Epithelial Cells Hyaline Casts Influenza A (Rapid) Negative Influenza B (Rapid) Negative 04/22/18 04/22/18 04/22/18 00:50 02:31 04:48 WBC 16.5 H RBC 4.19 Hgb 13.6 Hct 39.5 MCV 94.3 MCH 32.6 MCHC 34.5 RDW 12.8 Plt Count 164 MPV 9.7 Absolute Neuts (auto) 13.8 H Neutrophils % 83.3 H Lymphocytes % 7.0 L D Monocytes % 7.9 Eosinophils % 1.1 Basophils % 0.7 Nucleated RBC % 0 PT with INR INR PTT (Actin FS) Puncture Site ABG pH ABG pCO2 at Pt Temp ABG pO2 at Pt Temp ABG HCO3 ABG O2 Sat (Measured) ABG O2 Content ABG Base Excess Scott Test VBG pH 7.41 POC VBG pCO2 55.4 H POC VBG pO2 185.0 H* Mixed VBG HCO3 34.3 H Carboxyhemoglobin Methemoglobin O2 Delivery Device Oxygen Flow Rate Vent Mode Vent Rate Sodium Potassium Chloride Carbon Dioxide Anion Gap BUN Creatinine Creat Clearance w eGFR Random Glucose Lactic Acid 1.0 Calcium Phosphorus Magnesium Total Bilirubin AST ALT Alkaline Phosphatase Total Protein Albumin Urine Color Urine Appearance Urine pH Ur Specific [place] Urine Protein Urine Glucose (UA) Urine Ketones Urine Blood Urine Nitrite Urine Bilirubin Urine Urobilinogen Ur Leukocyte Esterase Urine WBC (Auto) Urine RBC (Auto) Ur Epithelial Cells Hyaline Casts Influenza A (Rapid) Influenza B (Rapid) 04/22/18 04/22/18 04/22/18 05:30 05:58 14:43 WBC RBC Hgb Hct MCV MCH MCHC RDW Plt Count MPV Absolute Neuts (auto) Neutrophils % Lymphocytes % Monocytes % Eosinophils % Basophils % Nucleated RBC % PT with INR INR PTT (Actin FS) Puncture Site No Result Required. ABG pH 7.32 L ABG pCO2 at Pt Temp 72.8 H* ABG pO2 at Pt Temp 76.7 L D ABG HCO3 36.3 H ABG O2 Sat (Measured) 94.2 ABG O2 Content 19.0 ABG Base Excess 7.5 H Scott Test No Result Required. VBG pH POC VBG pCO2 POC VBG pO2 Mixed VBG HCO3 Carboxyhemoglobin Methemoglobin O2 Delivery Device Oxygen Flow Rate 50 Vent Mode S/t Vent Rate Sodium 138 Potassium 3.6 Chloride 96 L Carbon Dioxide 38 H Anion Gap 4 L BUN 17 Creatinine 0.2 L Creat Clearance w eGFR > 60 Random Glucose 104 Lactic Acid Calcium 8.1 L Phosphorus 2.0 L Magnesium 2.4 Total Bilirubin 0.1 L AST 21 ALT 26 Alkaline Phosphatase 244 H Total Protein 6.5 Albumin 2.6 L Urine Color Yellow Urine Appearance Slcloudy Urine pH 7.0 Ur Specific [place] 1.014 Urine Protein 1+ H Urine Glucose (UA) Negative Urine Ketones Negative Urine Blood 1+ H Urine Nitrite Negative Urine Bilirubin Negative Urine Urobilinogen Negative Ur Leukocyte Esterase Trace Urine WBC (Auto) 12 Urine RBC (Auto) 14 Ur Epithelial Cells Rare Hyaline Casts 3 Influenza A (Rapid) Influenza B (Rapid) Active Medications Generic Name Dose Route Start Last Admin Trade Name Freq PRN Reason Stop Dose Admin Albuterol/Ipratropium 1 amp 04/22/18 08:00 04/22/18 12:16 Duoneb - NEB 1 amp RQID FRANCIE Administration Arformoterol Tartrate 1 amp 04/22/18 08:00 04/22/18 09:56 Brovana (Restricted To Pulmonology/Resp) - NEB 1 amp RBID FRANCIE Administration Ascorbic Acid 500 mg 04/22/18 10:00 04/22/18 09:23 Vitamin C - GT 500 mg BID FRANCIE Administration Atorvastatin Calcium 20 mg 04/22/18 22:00 Lipitor - GT HS [facility] Calcium Carbonate/Cholecalciferol 2 tab 04/22/18 22:00 Os-Jamar 500+D - GT HS [facility] Clotrimazole 1 applic 04/22/18 22:00 Lotrimin 1% Cream - TP BID FRANCIE Enoxaparin Sodium 40 mg 04/22/18 10:00 04/22/18 09:23 Lovenox - SQ 40 mg DAILY FRANCIE Administration Sodium Chloride 1,000 mls @ 75 mls/hr 04/22/18 02:15 04/22/18 12:50 Normal Saline - IV 75 mls/hr ASDIR FRANCIE Administration Vancomycin HCl 1,000 mg/ 250 mls @ 200 mls/hr 04/22/18 03:15 Dextrose IVPB Q24H FRANCIE Protocol Piperacillin Sod/Tazobactam 50 mls @ 100 mls/hr 04/22/18 10:00 Sod 3.375 gm/ Dextrose IVPB Q8H-IV FRANCIE Protocol Piperacillin Sod/Tazobactam 50 mls @ 100 mls/hr 04/22/18 10:00 04/22/18 12:50 Sod 3.375 gm/ Dextrose IVPB 04/22/18 18:29 100 mls/hr Q8H-IV FRANCIE Administration Potassium Chloride/Dextrose/Sod Cl 20 meq in 1,000 mls @ 50 mls/hr 04/22/18 14 :00 D5-1/2ns+20 Meq Kcl - IV ASDIR FRANCIE Potassium Phosphate 25 mm/ 508.3333 mls @ 62.5 mls/hr 04/22/18 13:37 Dextrose IVPB 04/22/18 21:44 ONCE ONE Lactulose 20 gm 04/22/18 10:00 04/22/18 09:23 Cephulac (Oral Use) GT 20 gm DAILY FRANCIE Administration Levetiracetam 1,500 mg 04/22/18 10:00 04/22/18 09:21 Keppra Oral Solution - GT 1,500 mg BID FRANCIE Administration Methylprednisolone Sodium Succinate 40 mg 04/23/18 06:00 Solu-Medrol - IVPUSH Q6H-IV FRANCIE Metoclopramide HCl 5 mg 04/22/18 10:00 04/22/18 09:21 Reglan Oral Solution - GT 5 mg QID FRANCIE Administration Metoprolol Tartrate 50 mg 04/22/18 10:00 04/22/18 09:23 Lopressor - GT 50 mg BID FRANCIE Administration Non-Formulary Medication 1 mg 04/22/18 10:00 Budesonide [Budesonide] IH BID FRANCIE Non-Formulary Medication 1 drop 04/22/18 10:00 Olopatadine Hcl [Olopatadine Hcl] OU DAILY FRANCIE Non-Formulary Medication 10 gm 04/22/18 10:00 Zinc Oxide [Boudreauxs] TP BID FRANCIE Ranitidine HCl 150 mg 04/22/18 10:00 04/22/18 09:22 Zantac Oral Solution - GT 150 mg BID FRANCIE Administration Valproate Sodium 750 mg 04/22/18 10:00 04/22/18 09:22 Depakene - GT 750 mg BID FRANCIE Administration ASSESSMENT/PLAN:Patient is a 67 year old female with past medical history of cerebral anoxic injury, quadriplegia, COPD (on 2L O2), was brought in from [facility] as patient was noted to be desaturating at 88% with increased heart rate and diaphoresis. #Acute hypoxic respiratory failure likely 2/2 Healthcare acquired, aspiration pneumonia IV antibiotics zosyn, vanco started on 04/22/18 ID and pulmonary consult IV steroid keep head end elevated blood cx, sputum cx, , pna studies repeat cxr in am CT chest once stable hold tube feed aspiration precaution d5ns at 50ml/hr continue nebulizers chest PT #Hx of cerebral anoxic injury -Continue current medications seizure disorder continue home meds ? copd #FEN -IV NS @50cc/hr -Electrolytes wnl, routine bmp monitoring - hold PEG tube feeding. On bipap high risk for aspiration #Prophylaxis -Lovenox 40mg sq daily #Disposition -DNR -admit to med-surg Visit type - Emergency Visit Emergency Visit: Yes ED Registration Date: 04/22/18 Care time: The patient presented to the Emergency Department on the above date and was hospitalized for further evaluation of their emergent condition. - New Patient This patient is new to me today: Yes Date on this admission: 04/22/18 - Critical Care Critical Care patient: No
--- NOTE | 2018-04-22 15:53 | PN ---
Progress Note (short form) - Note Progress Note: ID consult dictated imp/reccd hypercapneic resp failure ?pneumonia cerebral anoxia/brain injury quadrapledia cpd- n 2 liters oxygen continue zosyn f/u cultures received vanco in ED nares swab for MRSA urinary antigens Problem List - Problems (1) Hypercapnic respiratory failure Code(s): J96.92 - RESPIRATORY FAILURE, UNSPECIFIED WITH HYPERCAPNIA (2) Pneumonia Code(s): J18.9 - PNEUMONIA, UNSPECIFIED ORGANISM (3) Anoxic brain damage Code(s): G93.1 - ANOXIC BRAIN DAMAGE, NOT ELSEWHERE CLASSIFIED
[2018-04-22] MEDS ORDERED: DEXTROSE 5%-WATER - 50 ML IVPB ONE (17:15)
[2018-04-22] MEDS ORDERED: PIPERACILLIN/TAZOBACTAM 3.375 GM VIAL IVPB ONE (17:15)
--- NOTE | 2018-04-22 17:33 | CONS ---
DATE OF CONSULTATION: 04/22/2018 This is a 67-year-old woman from the [facility]. She has a history of anoxic brain injury, functional quadriplegia, COPD. She is on 2 L of oxygen. She was brought to the emergency room late last night because she was noted to be tachycardic, diaphoretic, and hypoxic. She was evaluated and felt to have a possible right lung infiltrate and noted to have an elevated white count. I am asked to see her for further evaluation. Patient is unable to give any history. She is currently on BiPAP for hypercapnia and the aide, who was present, reports her behavior is at its baseline. Past medical history is notable for cerebral anoxic injury, quadriplegia, COPD, on 2 L oxygen. Surgical history is notable for PEG placement. She also has had surgery on both her legs in the past. Social history is negative for cigarette, alcohol, or substance use. She has no known drug allergies. Her medications at the home include Keppra, Topamax, valproic acid, simvastatin, omeprazole, vitamin C, calcium with vitamin D, Binosto (alendronate), metoprolol, lactulose, ipratropium, albuterol nebulizer solution, olopatadine, zinc oxide, Brovana, and Reglan. Her review of systems is not available. Per the aide, there was no vomiting at the home. PHYSICAL EXAMINATION: Vital Signs: Temperature T-max is 99.8. Currently her temperature is 99.4. Pulse is 83. Blood pressure is 141/71. Respiratory rate 22. She is saturating 94%. She is on BiPAP. HEENT: Normocephalic. She is wearing the BiPAP mask. Back: She has kyphosis and scoliosis. Lungs: Diminished breath sounds at the bases. Heart: Regular rate and rhythm. Abdomen: G-tube site is clean. Extremities: Her extremities are contracted. Skin: She has no skin breakdown. White count is 16.5, hemoglobin 13.6, platelets are 164. Chemistries. Lactic acid on admission was 2.2, repeat was 1. BUN 17, creatinine 0.2, with alkaline phosphatase of 244. Her blood cultures have been sent and are pending. Chest x-ray: Questionable right-sided pneumonia but is very difficult due to her body habitus and the scoliosis. In summary, this is a 67-year-old woman with hypercapnic respiratory failure, anoxic brain injury, possible pneumonia. I would recommend we continue Zosyn. Would follow up her cultures. Her influenza screen was negative in the emergency room. Would swab her nares for MRSA to see if she needs to continue the vancomycin. Would obtain urinary antigens for pneumonia as well. Further recommendations to follow. Jian BAUTISTA/[id number]
[2018-04-22 18:28] LABS: ARTERIAL BLOOD GAS pH 7.38 (7.35-7.45)
[2018-04-22 18:29] LABS: ALLENS TEST POSITIVE
[2018-04-22] MEDS: CALCIUM 500MG/VIT-D 200 UNITS COMBO TABLET (FP) GT SCH (21:31)
[2018-04-22] MEDS: TOPIRAMATE 25 MG TABLET (FP) PO SCH (21:32)
[2018-04-22] MEDS: ZINC OXIDE 20% TOPICAL OINTMENT 30 GM TUBE TP SCH (21:33)
[2018-04-22] MEDS: CLOTRIMAZOLE 1% CREAM 15 GM TUBE TP SCH (21:33)
[2018-04-22] MEDS: MOMETASONE FUROATE 220 MCG/IH INHALER IH SCH (21:33)
[2018-04-22] MEDS ORDERED: ZINC OXIDE 20% TOPICAL OINTMENT 30 GM TUBE TP SCH (22:00)
[2018-04-22] MEDS: ATORVASTATIN CA 20 MG TABLET (FP) GT SCH (22:22)
[2018-04-23] MEDS ORDERED: PIPERACILLIN/TAZOBACTAM 3.375 GM VIAL IVPB ONE ×3 (01:39→16:21)
[2018-04-23] MEDS ORDERED: DEXTROSE 5%-WATER - 50 ML IVPB ONE ×3 (01:39→16:22)
[2018-04-23] MEDS: PIPERACILLIN/TAZOB 3.375 GM 3.375 GM in DEXTROSE 5%-WATER - 50 ML IVPB SCH ×3 (01:54→17:10)
[2018-04-23] MEDS: methylPREDNISolone NA SUCC 40 MG/1 ML VIAL IVPUSH SCH ×4 (05:22→22:06)
[2018-04-23 07:38] LABS: BASO % 0.2 % (0-2.0); EOS % 0.4 % (0-4.5); HEMATOCRIT 37.6 % (32.4-45.2); HEMOGLOBIN 13.1 GM/dL (10.7-15.3); LYMPH % 7.7 % (8-40); MCH 32.4 pg (25.7-33.7); MCHC 34.7 g/dl (32.0-36.0); MEAN CELL VOLUME 93.2 fl (80-96); MEAN PLT VOLUME 8.2 fl (7.5-11.1); MONO % 4.6 % (3.8-10.2); NEUT % 87.1 % (42.8-82.8); PLATELET COUNT 257 K/MM3 (134-434); RBC 4.03 M/mm3 (3.60-5.2); WHITE BLOOD COUNT 10.9 K/mm3 (4.0-10.0)
[2018-04-23 08:02] LABS: ALBUMIN 2.5 g/dl (3.4-5.0); ALK PHOS 198 U/L (45-117); ANION GAP 6 MMOL/L (8-16); BILIRUBIN,TOTAL 0.2 mg/dL (0.2-1); BLOOD UREA NITROGEN 11 mg/dL (7-18); CHLORIDE 96 mmol/L (98-107); CO2 35 mmol/L (21-32); CREATININE 0.2 mg/dL (0.55-1.3); GLUCOSE,RANDOM 94 mg/dL (74-106); MAGNESIUM 2.4 mg/dL (1.8-2.4); PHOSPHOROUS 4.1 mg/dL (2.5-4.9); POTASSIUM 4.3 mmol/L (3.5-5.1); SGOT/AST 48 U/L (15-37); SGPT/ALT 32 U/L (13-61); SODIUM 138 mmol/L (136-145); TOT PROT 6.7 g/dl (6.4-8.2)
[2018-04-23] MEDS: ARFORMOTEROL TARTRATE 15 MCG/2 ML VIAL NEB SCH ×2 (08:22→20:47)
[2018-04-23] MEDS: ALBUTEROL SO4 2.5/IPRATROPIUM 0.5 INH SOL 3 ML VIAL.NEB. NEB SCH ×4 (08:23→20:47)
[2018-04-23] MEDS: levETIRAcetam 500 MG/5 ML ORAL SOLUTION (UNIT-DOSE CUPS) GT SCH ×2 (10:00→22:06)
[2018-04-23] MEDS: LACTULOSE 20 GM/30 ML UDC (FOR ORAL USE ONLY) GT SCH (10:00)
[2018-04-23] MEDS: VALPROATE SODIUM 250 MG/5 ML UNIT DOSE CUP GT SCH ×2 (10:00→22:04)
[2018-04-23] MEDS: ASCORBIC ACID 500 MG TABLET (FP) GT SCH ×2 (10:03→22:05)
[2018-04-23] MEDS: ENOXAPARIN NA (PORCINE) 40 MG/0.4 ML DISP.SYRIN SQ SCH (10:03)
[2018-04-23] MEDS: METOPROLOL TARTRATE 50 MG TABLET (FP) GT SCH ×2 (10:03→22:05)
[2018-04-23] MEDS: METOCLOPRAMIDE HCL 5 MG/5 ML UNIT DOSE CUP GT SCH ×4 (10:04→22:07)
[2018-04-23] MEDS: TOPIRAMATE 25 MG TABLET (FP) PO SCH ×2 (10:05→22:05)
[2018-04-23] MEDS: CLOTRIMAZOLE 1% CREAM 15 GM TUBE TP SCH ×2 (10:06→22:07)
[2018-04-23] MEDS: ZINC OXIDE 20% TOPICAL OINTMENT 30 GM TUBE TP SCH ×2 (10:07→22:07)
[2018-04-23] MEDS: RANITIDINE HCL 150 MG/10 ML UNIT-DOSE GT SCH ×2 (10:10→22:04)
[2018-04-23] MEDS ORDERED: DEXTROSE 5%-0.45% SALINE 1,000 ML IV SCH (10:30)
--- NOTE | 2018-04-23 10:40 | PN ---
Teaching Attending Note Name of Resident: Todd Garcia ATTENDING PHYSICIAN STATEMENT I saw and evaluated the patient. I reviewed the resident's note and discussed the case with the resident. I agree with the resident's findings and plan as documented with exceptions below. SUBJECTIVE: Patient seen and examined. Breathing comfortably, non verbal, unable to do ROS. OBJECTIVE: Vital Signs Period Temp Pulse Resp BP Sys/Restrepo Pulse Ox Last 24 Hr 97.5 F-98.4 F 81-89 20-27 131-155/71-93 92-99 Intake & Output 04/20/18 04/21/18 04/22/18 04/23/18 23:59 23:59 23:59 23:59 Intake Total 437 0 Balance 437 0 Weight 89 lb 3.2 oz 106 lb 3.2 oz General: lying in bed, on bipap,breathing comfortable, less coarse audible rales Chest: decreased audible rales, improved air entry, limited exam Abdomen:soft, improved distension, positive bowel sounds, PEG in place Extremities: contractures, no edema Home Medications Medication Instructions Recorded Alendronate Sodium [Binosto] 70 mg GT WEEKLY 04/22/18 Alendronate Sodium [Binosto] 70 mg GT WEEKLY 04/22/18 Amlodipine Besylate 2.5 mg GT DAILY 04/22/18 Arformoterol Tartrate [Brovana 1 neb NEB BID 04/22/18 (Restricted To Pulmonology/Resp) -] Arformoterol Tartrate [Brovana] 15 mcg IH BID 04/22/18 Ascorbic Acid 500 mg GT BID 04/22/18 Budesonide 1 mg IH BID 04/22/18 Calcium Carbonate/Vitamin D3 2 each GT HS 04/22/18 [Oystercal-D 500 mg-400 Unit Tb] Ipratropium/Albuterol Sulfate 1 vial IH QID 04/22/18 [Iprat-Albut 0.5-3(2.5) mg/3 ml] Lactulose 30 ml GT DAILY 04/22/18 Metoclopramide HCl 5 mg PO QID 04/22/18 Metoprolol Tartrate [Lopressor -] 50 mg GT BID 04/22/18 Olopatadine HCl 1 drop OU DAILY 04/22/18 Omeprazole 20 mg GT DAILY 04/22/18 Simvastatin 40 mg GT DAILY 02/18/19 Topiramate 1 tab GT BID 04/22/18 Valproic Acid (As Sodium Salt) 15 ml GT Q12H 04/22/18 [Valproic Acid] Zinc Oxide [Boudreauxs] 10 gm TP BID 04/22/18 levETIRAcetam [levETIRAcetam ORAL 15 ml GT BID 04/22/18 SUSPENSION] Active Medications Albuterol/Ipratropium (Duoneb -) 1 amp NEB RQID [facility] Last Admin: 04/23/18 08:23 Dose: 1 amp Amlodipine Besylate (Norvasc -) 2.5 mg GT DAILY [facility] Arformoterol Tartrate (Brovana (Restricted To Pulmonology/Resp) -) 1 amp NEB RBID [facility] Last Admin: 04/23/18 08:22 Dose: 1 amp Ascorbic Acid (Vitamin C -) 500 mg GT BID [facility] Last Admin: 04/23/18 10:03 Dose: 500 mg Atorvastatin Calcium (Lipitor -) 20 mg GT HS [facility] Last Admin: 04/22/18 22:22 Dose: 20 mg Calcium Carbonate/Cholecalciferol (Os-Jamar 500+D -) 2 tab GT HS [facility] Last Admin: 04/22/18 21:31 Dose: 2 tab Clotrimazole (Lotrimin 1% Cream -) 1 applic TP BID [facility] Last Admin: 04/23/18 10:06 Dose: 1 applic Enoxaparin Sodium (Lovenox -) 40 mg SQ DAILY [facility] Last Admin: 04/23/18 10:03 Dose: 40 mg Piperacillin Sod/Tazobactam (Sod 3.375 gm/ Dextrose) 50 mls @ 100 mls/hr IVPB Q8H-IV [facility]; Protocol Last Admin: 04/23/18 10:01 Dose: 100 mls/hr Dextrose/Sodium Chloride (D5-1/2ns -) 1,000 mls @ 50 mls/hr IV ASDIR [facility] Lactulose (Cephulac (Oral Use)) 20 gm GT DAILY [facility] Last Admin: 04/23/18 10:00 Dose: Not Given Levetiracetam (Keppra Oral Solution -) 1,500 mg GT BID [facility] Last Admin: 04/23/18 10:00 Dose: 1,500 mg Methylprednisolone Sodium Succinate (Solu-Medrol -) 40 mg IVPUSH TID [facility] Metoclopramide HCl (Reglan Oral Solution -) 5 mg GT QID [facility] Last Admin: 04/23/18 10:04 Dose: 5 mg Metoprolol Tartrate (Lopressor -) 50 mg GT BID [facility] Last Admin: 04/23/18 10:03 Dose: 50 mg Mometasone Furoate (Asmanex 220mcg -) 1 puff IH HS [facility] Last Admin: 04/22/18 21:33 Dose: 1 puff Multi-Ingredient Ointment (Zinc Oxide) 1 applic TP BID [facility] Last Admin: 04/23/18 10:07 Dose: 1 applic Non-Formulary Medication (Olopatadine Hcl [Olopatadine Hcl]) 1 drop OU DAILY [facility] Ranitidine HCl (Zantac Oral Solution -) 150 mg GT BID [facility] Last Admin: 04/23/18 10:10 Dose: 150 mg Topiramate (Topamax -) 25 mg PO BID [facility] Last Admin: 04/23/18 10:05 Dose: 25 mg Valproate Sodium (Depakene -) 750 mg GT BID [facility] Last Admin: 04/23/18 10:00 Dose: 750 mg Laboratory Results - last 24 hr 04/22/18 04/22/18 04/23/18 14:43 18:15 06:55 WBC 10.9 H RBC 4.03 Hgb 13.1 Hct 37.6 MCV 93.2 MCH 32.4 MCHC 34.7 RDW 13.0 Plt Count 257 D MPV 8.2 D Absolute Neuts (auto) 9.5 H Neutrophils % 87.1 H Lymphocytes % 7.7 L Monocytes % 4.6 Eosinophils % 0.4 Basophils % 0.2 Nucleated RBC % 0 Anticoagulation Therapy No Result Required. Puncture Site No Result Required. Left radial ABG pH 7.32 L 7.38 ABG pCO2 at Pt Temp 72.8 H* 60.0 H ABG pO2 at Pt Temp 76.7 L D 104.0 H D ABG HCO3 36.3 H 34.5 H ABG O2 Sat (Measured) 94.2 98.0 ABG O2 Content 19.0 17.0 ABG Base Excess 7.5 H 8.0 H Scott Test No Result Required. Positive O2 Delivery Device Bipap Oxygen Flow Rate 50 50% Vent Mode S/t No Result Required. Vent Rate No Result Required. Mechanical Rate No Result Required. Pressure Support Vent No Result Required. Sodium Potassium Chloride Carbon Dioxide Anion Gap BUN Creatinine Creat Clearance w eGFR Random Glucose Calcium Phosphorus Magnesium Total Bilirubin AST ALT Alkaline Phosphatase Total Protein Albumin 04/23/18 06:55 WBC RBC Hgb Hct MCV MCH MCHC RDW Plt Count MPV Absolute Neuts (auto) Neutrophils % Lymphocytes % Monocytes % Eosinophils % Basophils % Nucleated RBC % Anticoagulation Therapy Puncture Site ABG pH ABG pCO2 at Pt Temp ABG pO2 at Pt Temp ABG HCO3 ABG O2 Sat (Measured) ABG O2 Content ABG Base Excess Scott Test O2 Delivery Device Oxygen Flow Rate Vent Mode Vent Rate Mechanical Rate Pressure Support Vent Sodium 138 Potassium 4.3 Chloride 96 L Carbon Dioxide 35 H Anion Gap 6 L BUN 11 Creatinine 0.2 L Creat Clearance w eGFR > 60 Random Glucose 94 Calcium 8.0 L Phosphorus 4.1 Magnesium 2.4 Total Bilirubin 0.2 AST 48 H ALT 32 Alkaline Phosphatase 198 H Total Protein 6.7 Albumin 2.5 L Microbiology 04/22/18 00:35 Blood - Peripheral Venous Blood Culture - Preliminary NO GROWTH OBTAINED AFTER 24 HOURS, INCUBATION TO CONTINUE FOR 4 DAYS. 04/22/18 00:35 Blood - Peripheral Venous Blood Culture - Preliminary NO GROWTH OBTAINED AFTER 24 HOURS, INCUBATION TO CONTINUE FOR 4 DAYS. ASSESSMENT AND PLAN: 67 yof with PMhx of cerebral anoxic injury, functional quadriplegia, ?COPD on 2L home oxygen admitted with hypoxia, tachycardia and diaphoresis from [facility] -Acute hypoxic/hypercapneic respiratory failure -Suspected aspiration PNA -Acute COPD exacerbation, likely from above -Cerebral anoxic injury with functional quadriplegia -?COPD on 2l home oxygen -Seizure disorder Plan: Breathing better today, improved rales. Trial off bipap, discussed with nursing. taper solumedrol Standing/prn nebs. ID input noted. Zosyn day 2. MRSA screen. Follow up blood cx. SPutum cx if availble. Urine PNA studies though low suspicion. RSV screen. Dieteary consult to resume tube feeds at lower rate today. Change IVF to D5-1/2NS resume amlodipine, continue metoprolol. Aspiration precautions. Continue home keppra/valproic acid/topiramate/statin/PPI DVTPPX heparin Dispo back to [place] once clinically improved. Code status: DNR, but ok with intubation Plan discussed nursing.
--- NOTE | 2018-04-23 13:11 | PN ---
Progress Note, Physician History of Present Illness: PULMONARY SLEEPING,ON VM,-RESP DISTRESS - Current Medication List Current Medications: Active Medications Albuterol/Ipratropium (Duoneb -) 1 amp NEB RQID [facility] Last Admin: 04/23/18 12:49 Dose: 1 amp Amlodipine Besylate (Norvasc -) 2.5 mg GT DAILY [facility] Arformoterol Tartrate (Brovana (Restricted To Pulmonology/Resp) -) 1 amp NEB RBID [facility] Last Admin: 04/23/18 08:22 Dose: 1 amp Ascorbic Acid (Vitamin C -) 500 mg GT BID [facility] Last Admin: 04/23/18 10:03 Dose: 500 mg Atorvastatin Calcium (Lipitor -) 20 mg GT HS [facility] Last Admin: 04/22/18 22:22 Dose: 20 mg Calcium Carbonate/Cholecalciferol (Os-Jamar 500+D -) 2 tab GT HS [facility] Last Admin: 04/22/18 21:31 Dose: 2 tab Clotrimazole (Lotrimin 1% Cream -) 1 applic TP BID [facility] Last Admin: 04/23/18 10:06 Dose: 1 applic Enoxaparin Sodium (Lovenox -) 40 mg SQ DAILY [facility] Last Admin: 04/23/18 10:03 Dose: 40 mg Piperacillin Sod/Tazobactam (Sod 3.375 gm/ Dextrose) 50 mls @ 100 mls/hr IVPB Q8H-IV [facility]; Protocol Last Admin: 04/23/18 10:01 Dose: 100 mls/hr Dextrose/Sodium Chloride (D5-1/2ns -) 1,000 mls @ 50 mls/hr IV ASDIR [facility] Last Admin: 04/23/18 11:55 Dose: 50 mls/hr Lactulose (Cephulac (Oral Use)) 20 gm GT DAILY [facility] Last Admin: 04/23/18 10:00 Dose: Not Given Levetiracetam (Keppra Oral Solution -) 1,500 mg GT BID [facility] Last Admin: 04/23/18 10:00 Dose: 1,500 mg Methylprednisolone Sodium Succinate (Solu-Medrol -) 40 mg IVPUSH TID [facility] Metoclopramide HCl (Reglan Oral Solution -) 5 mg GT QID [facility] Last Admin: 04/23/18 10:04 Dose: 5 mg Metoprolol Tartrate (Lopressor -) 50 mg GT BID [facility] Last Admin: 04/23/18 10:03 Dose: 50 mg Mometasone Furoate (Asmanex 220mcg -) 1 puff IH HS [facility] Last Admin: 04/22/18 21:33 Dose: 1 puff Multi-Ingredient Ointment (Zinc Oxide) 1 applic TP BID [facility] Last Admin: 04/23/18 10:07 Dose: 1 applic Non-Formulary Medication (Olopatadine Hcl [Olopatadine Hcl]) 1 drop OU DAILY [facility] Ranitidine HCl (Zantac Oral Solution -) 150 mg GT BID [facility] Last Admin: 04/23/18 10:10 Dose: 150 mg Topiramate (Topamax -) 25 mg PO BID [facility] Last Admin: 04/23/18 10:05 Dose: 25 mg Valproate Sodium (Depakene -) 750 mg GT BID [facility] Last Admin: 04/23/18 10:00 Dose: 750 mg - Objective Vital Signs: Vital Signs Temperature 97.5 F L 04/23/18 08:06 Pulse Rate 84 04/23/18 08:06 Respiratory Rate 20 04/23/18 08:06 Blood Pressure 150/83 04/23/18 08:06 O2 Sat by Pulse Oximetry (%) 96 04/23/18 11:17 Constitutional: Yes: Well Nourished, Calm, Other (SLEEPING) Eyes: Yes: WNL HENT: Yes: WNL Neck: Yes: WNL Cardiovascular: Yes: Regular Rate and Rhythm, S1, S2 Respiratory: Yes: Diminished Gastrointestinal: Yes: Normal Bowel Sounds, Soft Extremities: Yes: Other (CONTRACTED,SHORTENED) Labs: CBC, BMP 04/23/18 06:55 04/23/18 06:55 INR, PTT INR 0.97 (0.83-1.09) 04/22/18 00:05 Assessment/Plan Problem List - Problems (1) Anoxic brain damage Code(s): G93.1 - ANOXIC BRAIN DAMAGE, NOT ELSEWHERE CLASSIFIED (2) Fracture of left humerus Code(s): S42.302A - UNSP FRACTURE OF SHAFT OF HUMERUS, LEFT ARM, INIT (3) Functional quadriplegia Code(s): R53.2 - FUNCTIONAL QUADRIPLEGIA (4) Hypercapnic respiratory failure Code(s): J96.92 - RESPIRATORY FAILURE, UNSPECIFIED WITH HYPERCAPNIA (5) Scoliosis deformity of spine Code(s): M41.9 - SCOLIOSIS, UNSPECIFIED Assessment/Plan ACUTE ON HYPERCAPNEIC RESP FAILURE REQUIRING NIPPV POSSIBLE PNEUMONIA SEVERE SCOLIOSIS O2 VIA VM,NIPPV NEEDED IV ANTIBIOTICS BRONCHODILATORS DVT PROPHYLAXSIS DR SUAREZ
[2018-04-23 14:49] VITALS: BMI 25.5
--- NOTE | 2018-04-23 15:18 | PN ---
Physical Exam: SUBJECTIVE: Patient seen and examined no new course overnight. pt was on bipap overnight. in morning breathing looks much better. less laboured. OBJECTIVE: Vital Signs Period Temp Pulse Resp BP Sys/Restrepo Pulse Ox Last 24 Hr 97.5 F-98.4 F 70-89 20-20 131-150/73-93 94-99 GENERAL: lying in bed, tachypnic, nonverbal LUNGS: respiratory effort improved, mild crackles at bases on bipap HEART: Regular rate and rhythm, normal S1 and S2 normal ABDOMEN: Soft, nontender, not distended, normoactive bowel sounds, +PEG tube in place. UPPER EXTREMITIES: b/l arms contracted, flexed. No peripheral edema. LOWER EXTREMITIES: b/l contracted . No peripheral edema. NEUROLOGICAL: unable to assess as patient is nonresponsive and unable to cooperate SKIN: Warm, dry, Laboratory Results - last 24 hr 04/22/18 04/23/18 04/23/18 18:15 06:55 06:55 WBC 10.9 H RBC 4.03 Hgb 13.1 Hct 37.6 MCV 93.2 MCH 32.4 MCHC 34.7 RDW 13.0 Plt Count 257 D MPV 8.2 D Absolute Neuts (auto) 9.5 H Neutrophils % 87.1 H Lymphocytes % 7.7 L Monocytes % 4.6 Eosinophils % 0.4 Basophils % 0.2 Nucleated RBC % 0 Anticoagulation Therapy No Result Required. Puncture Site Left radial ABG pH 7.38 ABG pCO2 at Pt Temp 60.0 H ABG pO2 at Pt Temp 104.0 H D ABG HCO3 34.5 H ABG O2 Sat (Measured) 98.0 ABG O2 Content 17.0 ABG Base Excess 8.0 H Scott Test Positive O2 Delivery Device Bipap Oxygen Flow Rate 50% Vent Mode No Result Required. Vent Rate No Result Required. Mechanical Rate No Result Required. Pressure Support Vent No Result Required. Sodium 138 Potassium 4.3 Chloride 96 L Carbon Dioxide 35 H Anion Gap 6 L BUN 11 Creatinine 0.2 L Creat Clearance w eGFR > 60 Random Glucose 94 Calcium 8.0 L Phosphorus 4.1 Magnesium 2.4 Total Bilirubin 0.2 AST 48 H ALT 32 Alkaline Phosphatase 198 H Total Protein 6.7 Albumin 2.5 L Active Medications Generic Name Dose Route Start Last Admin Trade Name Freq PRN Reason Stop Dose Admin Albuterol/Ipratropium 1 amp 04/22/18 08:00 04/23/18 12:49 Duoneb - NEB 1 amp RQID [facility] Administration Amlodipine Besylate 2.5 mg 04/24/18 10:00 Norvasc - GT DAILY [facility] Arformoterol Tartrate 1 amp 04/22/18 08:00 04/23/18 08:22 Brovana (Restricted To Pulmonology/Resp) - NEB 1 amp RBID [facility] Administration Ascorbic Acid 500 mg 04/22/18 10:00 04/23/18 10:03 Vitamin C - GT 500 mg BID [facility] Administration Atorvastatin Calcium 20 mg 04/22/18 22:00 04/22/18 22:22 Lipitor - GT 20 mg HS [facility] Administration Calcium Carbonate/Cholecalciferol 2 tab 04/22/18 22:00 04/22/18 21:31 Os-Jamar 500+D - GT 2 tab HS [facility] Administration Clotrimazole 1 applic 04/22/18 22:00 04/23/18 10:06 Lotrimin 1% Cream - TP 1 applic BID [facility] Administration Enoxaparin Sodium 40 mg 04/22/18 10:00 04/23/18 10:03 Lovenox - SQ 40 mg DAILY [facility] Administration Piperacillin Sod/Tazobactam 50 mls @ 100 mls/hr 04/22/18 18:00 04/23/18 10:01 Sod 3.375 gm/ Dextrose IVPB 100 mls/hr Q8H-IV [facility] Administration Protocol Dextrose/Sodium Chloride 1,000 mls @ 50 mls/hr 04/23/18 10:30 04/23/18 11:55 D5-1/2ns - IV 50 mls/hr ASDIR [facility] Administration Lactulose 20 gm 04/22/18 10:00 04/23/18 10:00 Cephulac (Oral Use) GT Not Given DAILY [facility] Levetiracetam 1,500 mg 04/22/18 10:00 04/23/18 10:00 Keppra Oral Solution - GT 1,500 mg BID [facility] Administration Methylprednisolone Sodium Succinate 40 mg 04/23/18 14:00 04/23/18 13:43 Solu-Medrol - IVPUSH 40 mg TID [facility] Administration Metoclopramide HCl 5 mg 04/22/18 10:00 04/23/18 13:43 Reglan Oral Solution - GT 5 mg QID [facility] Administration Metoprolol Tartrate 50 mg 04/22/18 10:00 04/23/18 10:03 Lopressor - GT 50 mg BID [facility] Administration Mometasone Furoate 1 puff 04/22/18 22:00 04/22/18 21:33 Asmanex 220mcg - IH 1 puff HS [facility] Administration Multi-Ingredient Ointment 1 applic 04/22/18 22:00 04/23/18 10:07 Zinc Oxide TP 1 applic BID [facility] Administration Non-Formulary Medication 1 drop 04/22/18 10:00 Olopatadine Hcl [Olopatadine Hcl] OU DAILY [facility] Ranitidine HCl 150 mg 04/22/18 10:00 04/23/18 10:10 Zantac Oral Solution - GT 150 mg BID [facility] Administration Topiramate 25 mg 04/22/18 22:00 04/23/18 10:05 Topamax - PO 25 mg BID [facility] Administration Valproate Sodium 750 mg 04/22/18 10:00 04/23/18 10:00 Depakene - GT 750 mg BID [facility] Administration ASSESSMENT/PLAN: Patient is a 67 year old female with past medical history of cerebral anoxic injury, quadriplegia, COPD (on 2L O2), was brought in from [facility] as patient was noted to be desaturating at 88% with increased heart rate and diaphoresis. #Acute hypoxic respiratory failure likely 2/2 Healthcare acquired, aspiration pneumonia IV antibiotics zosyn, ID and pulmonary consult appreciated. IV steroid taper TID keep head end elevated blood cx negative MRSA pending start tube feed aspiration precaution d5ns at 50ml/hr continue nebulizers chest PT BIPAP as needed Venturi mask 50% keep spo2. 90 #Hx of cerebral anoxic injury -Continue current medications seizure disorder continue home meds ? copd #FEN -IV NS @50cc/hr -Electrolytes wnl, routine bmp monitoring - hold PEG tube feeding. On bipap high risk for aspiration #Prophylaxis -Lovenox 40mg sq daily #Disposition -DNR -admit to med-surg Visit type - Emergency Visit Emergency Visit: Yes ED Registration Date: 04/22/18 Care time: The patient presented to the Emergency Department on the above date and was hospitalized for further evaluation of their emergent condition. - New Patient This patient is new to me today: No - Critical Care Critical Care patient: No
--- NOTE | 2018-04-23 15:18 | PN ---
Progress Note (short form) - Note Progress Note: doing well off bipap Vital Signs Period Temp Pulse Resp BP Sys/Restrepo Pulse Ox Last 24 Hr 97.5 F-98.4 F 70-89 20-20 131-150/73-93 94-99 cor-rrr lungs clear abd soft, nt ext no edema CBC, BMP 04/23/18 06:55 04/23/18 06:55 Microbiology 04/22/18 00:35 Blood - Peripheral Venous Blood Culture - Preliminary NO GROWTH OBTAINED AFTER 24 HOURS, INCUBATION TO CONTINUE FOR 4 DAYS. 04/22/18 00:35 Blood - Peripheral Venous Blood Culture - Preliminary NO GROWTH OBTAINED AFTER 24 HOURS, INCUBATION TO CONTINUE FOR 4 DAYS. Current Medications Albuterol/Ipratropium (Duoneb -) 1 amp NEB RQID [facility] Last Admin: 04/23/18 12:49 Dose: 1 amp Amlodipine Besylate (Norvasc -) 2.5 mg GT DAILY [facility] Arformoterol Tartrate (Brovana (Restricted To Pulmonology/Resp) -) 1 amp NEB RBID [facility] Last Admin: 04/23/18 08:22 Dose: 1 amp Ascorbic Acid (Vitamin C -) 500 mg GT BID [facility] Last Admin: 04/23/18 10:03 Dose: 500 mg Atorvastatin Calcium (Lipitor -) 20 mg GT HS [facility] Last Admin: 04/22/18 22:22 Dose: 20 mg Calcium Carbonate/Cholecalciferol (Os-Jamar 500+D -) 2 tab GT HS [facility] Last Admin: 04/22/18 21:31 Dose: 2 tab Clotrimazole (Lotrimin 1% Cream -) 1 applic TP BID [facility] Last Admin: 04/23/18 10:06 Dose: 1 applic Enoxaparin Sodium (Lovenox -) 40 mg SQ DAILY [facility] Last Admin: 04/23/18 10:03 Dose: 40 mg Piperacillin Sod/Tazobactam (Sod 3.375 gm/ Dextrose) 50 mls @ 100 mls/hr IVPB Q8H-IV [facility]; Protocol Last Admin: 04/23/18 10:01 Dose: 100 mls/hr Dextrose/Sodium Chloride (D5-1/2ns -) 1,000 mls @ 50 mls/hr IV ASDIR [facility] Last Admin: 04/23/18 11:55 Dose: 50 mls/hr Lactulose (Cephulac (Oral Use)) 20 gm GT DAILY [facility] Last Admin: 04/23/18 10:00 Dose: Not Given Levetiracetam (Keppra Oral Solution -) 1,500 mg GT BID [facility] Last Admin: 04/23/18 10:00 Dose: 1,500 mg Methylprednisolone Sodium Succinate (Solu-Medrol -) 40 mg IVPUSH TID [facility] Last Admin: 04/23/18 13:43 Dose: 40 mg Metoclopramide HCl (Reglan Oral Solution -) 5 mg GT QID [facility] Last Admin: 04/23/18 13:43 Dose: 5 mg Metoprolol Tartrate (Lopressor -) 50 mg GT BID [facility] Last Admin: 04/23/18 10:03 Dose: 50 mg Mometasone Furoate (Asmanex 220mcg -) 1 puff IH HS [facility] Last Admin: 04/22/18 21:33 Dose: 1 puff Multi-Ingredient Ointment (Zinc Oxide) 1 applic TP BID [facility] Last Admin: 04/23/18 10:07 Dose: 1 applic Non-Formulary Medication (Olopatadine Hcl [Olopatadine Hcl]) 1 drop OU DAILY [facility] Ranitidine HCl (Zantac Oral Solution -) 150 mg GT BID [facility] Last Admin: 04/23/18 10:10 Dose: 150 mg Topiramate (Topamax -) 25 mg PO BID [facility] Last Admin: 04/23/18 10:05 Dose: 25 mg Valproate Sodium (Depakene -) 750 mg GT BID [facility] Last Admin: 04/23/18 10:00 Dose: 750 mg cxray improved imp/reccd hypercapneic resp failure ?pneumonia cerebral anoxia/brain injury quadrapledia cpd- n 2 liters oxygen continue zosyn- can switch to augmentin in am to complete 7 days if she continues to improve f/u cultures Problem List - Problems (1) Hypercapnic respiratory failure Code(s): J96.92 - RESPIRATORY FAILURE, UNSPECIFIED WITH HYPERCAPNIA (2) Pneumonia Code(s): J18.9 - PNEUMONIA, UNSPECIFIED ORGANISM (3) Anoxic brain damage Code(s): G93.1 - ANOXIC BRAIN DAMAGE, NOT ELSEWHERE CLASSIFIED
[2018-04-23] MEDS: ATORVASTATIN CA 20 MG TABLET (FP) GT SCH (22:04)
[2018-04-23] MEDS: MOMETASONE FUROATE 220 MCG/IH INHALER IH SCH (22:06)
[2018-04-23] MEDS: CALCIUM 500MG/VIT-D 200 UNITS COMBO TABLET (FP) GT SCH (22:06)
[2018-04-24] MEDS ORDERED: PIPERACILLIN/TAZOBACTAM 3.375 GM VIAL IVPB ONE ×2 (02:28→09:39)
[2018-04-24] MEDS ORDERED: DEXTROSE 5%-WATER - 50 ML IVPB ONE ×2 (02:28→09:39)
[2018-04-24] MEDS: PIPERACILLIN/TAZOB 3.375 GM 3.375 GM in DEXTROSE 5%-WATER - 50 ML IVPB SCH ×2 (02:35→10:36)
[2018-04-24] MEDS: methylPREDNISolone NA SUCC 40 MG/1 ML VIAL IVPUSH SCH ×2 (05:31→21:16)
[2018-04-24] MEDS: ARFORMOTEROL TARTRATE 15 MCG/2 ML VIAL NEB SCH ×2 (06:59→20:15)
[2018-04-24] MEDS: ALBUTEROL SO4 2.5/IPRATROPIUM 0.5 INH SOL 3 ML VIAL.NEB. NEB SCH ×4 (06:59→20:15)
[2018-04-24 08:26] LABS: BASO % 0.2 % (0-2.0); EOS % 0.1 % (0-4.5); HEMATOCRIT 38.2 % (32.4-45.2); HEMOGLOBIN 12.9 GM/dL (10.7-15.3); LYMPH % 7.1 % (8-40); MCH 31.9 pg (25.7-33.7); MCHC 33.7 g/dl (32.0-36.0); MEAN CELL VOLUME 94.4 fl (80-96); MEAN PLT VOLUME 7.9 fl (7.5-11.1); MONO % 3.4 % (3.8-10.2); NEUT % 89.2 % (42.8-82.8); PLATELET COUNT 223 K/MM3 (134-434); RBC 4.05 M/mm3 (3.60-5.2); WHITE BLOOD COUNT 6.5 K/mm3 (4.0-10.0)
[2018-04-24 08:56] LABS: ALBUMIN 2.5 g/dl (3.4-5.0); ALK PHOS 179 U/L (45-117); ANION GAP 5 MMOL/L (8-16); BILIRUBIN,TOTAL 0.1 mg/dL (0.2-1); BLOOD UREA NITROGEN 9 mg/dL (7-18); CALCIUM 8.1 mg/dL (8.5-10.1); CHLORIDE 98 mmol/L (98-107); CO2 36 mmol/L (21-32); CREATININE 0.3 mg/dL (0.55-1.3); GLUCOSE,RANDOM 117 mg/dL (74-106); POTASSIUM 3.7 mmol/L (3.5-5.1); SGOT/AST 14 U/L (15-37); SGPT/ALT 22 U/L (13-61); SODIUM 139 mmol/L (136-145); TOT PROT 6.3 g/dl (6.4-8.2)
[2018-04-24] MEDS: LACTULOSE 20 GM/30 ML UDC (FOR ORAL USE ONLY) GT SCH (10:37)
[2018-04-24] MEDS: METOCLOPRAMIDE HCL 5 MG/5 ML UNIT DOSE CUP GT SCH ×4 (10:37→21:19)
[2018-04-24] MEDS: METOPROLOL TARTRATE 50 MG TABLET (FP) GT SCH ×2 (10:38→21:17)
[2018-04-24] MEDS: ASCORBIC ACID 500 MG TABLET (FP) GT SCH ×2 (10:38→21:17)
[2018-04-24] MEDS: ENOXAPARIN NA (PORCINE) 40 MG/0.4 ML DISP.SYRIN SQ SCH (10:38)
[2018-04-24] MEDS: RANITIDINE HCL 150 MG/10 ML UNIT-DOSE GT SCH ×2 (10:38→21:17)
[2018-04-24] MEDS: TOPIRAMATE 25 MG TABLET (FP) PO SCH ×2 (10:38→21:17)
[2018-04-24] MEDS: amLODIPine BESYLATE 2.5 MG TABLET (FP) GT SCH (10:38)
[2018-04-24] MEDS: levETIRAcetam 500 MG/5 ML ORAL SOLUTION (UNIT-DOSE CUPS) GT SCH ×2 (10:39→21:18)
[2018-04-24] MEDS: VALPROATE SODIUM 250 MG/5 ML UNIT DOSE CUP GT SCH ×2 (10:40→21:17)
[2018-04-24] MEDS: ZINC OXIDE 20% TOPICAL OINTMENT 30 GM TUBE TP SCH ×2 (10:41→21:18)
[2018-04-24] MEDS: CLOTRIMAZOLE 1% CREAM 15 GM TUBE TP SCH ×2 (10:41→21:19)
--- NOTE | 2018-04-24 10:50 | PN ---
Physical Exam: SUBJECTIVE: Patient seen and examined no new course overnight. pt was on VM overnight. Taken t nasal canula in am breathing looks much better. less laboured. OBJECTIVE: Vital Signs Period Temp Pulse Resp BP Sys/Restrepo Pulse Ox Last 24 Hr 97.6 F-99.1 F 70-89 20-20 133-140/56-88 96-98 GENERAL: lying in bed, nonverbal LUNGS: respiratory effort improved, mild crackles at bases on bipap HEART: Regular rate and rhythm, normal S1 and S2 normal ABDOMEN: Soft, nontender, not distended, normoactive bowel sounds, +PEG tube in place. UPPER EXTREMITIES: b/l arms contracted, flexed. No peripheral edema. LOWER EXTREMITIES: b/l contracted . No peripheral edema. NEUROLOGICAL: unable to assess as patient is nonresponsive and unable to cooperate SKIN: Warm, dry Laboratory Results - last 24 hr 04/24/18 04/24/18 08:05 08:05 WBC 6.5 RBC 4.05 Hgb 12.9 Hct 38.2 MCV 94.4 MCH 31.9 MCHC 33.7 RDW 13.0 Plt Count 223 MPV 7.9 Absolute Neuts (auto) 5.8 Neutrophils % 89.2 H Lymphocytes % 7.1 L Monocytes % 3.4 L Eosinophils % 0.1 Basophils % 0.2 Nucleated RBC % 0 Sodium 139 Potassium 3.7 Chloride 98 Carbon Dioxide 36 H Anion Gap 5 L BUN 9 Creatinine 0.3 L Creat Clearance w eGFR > 60 Random Glucose 117 H Calcium 8.1 L Total Bilirubin 0.1 L AST 14 L ALT 22 Alkaline Phosphatase 179 H Total Protein 6.3 L Albumin 2.5 L Active Medications Generic Name Dose Route Start Last Admin Trade Name Freq PRN Reason Stop Dose Admin Albuterol/Ipratropium 1 amp 04/22/18 08:00 04/24/18 06:59 Duoneb - NEB 1 amp RQID FRANCIE Administration Amlodipine Besylate 2.5 mg 04/24/18 10:00 04/24/18 10:38 Norvasc - GT 2.5 mg DAILY FRANCIE Administration Arformoterol Tartrate 1 amp 04/22/18 08:00 04/24/18 06:59 Brovana (Restricted To Pulmonology/Resp) - NEB 1 amp RBID FRANCIE Administration Ascorbic Acid 500 mg 04/22/18 10:00 04/24/18 10:38 Vitamin C - GT 500 mg BID FRANCIE Administration Atorvastatin Calcium 20 mg 04/22/18 22:00 04/23/18 22:04 Lipitor - GT 20 mg HS FRANCIE Administration Calcium Carbonate/Cholecalciferol 2 tab 04/22/18 22:00 04/23/18 22:06 Os-Jamar 500+D - GT 2 tab HS FRANCIE Administration Clotrimazole 1 applic 04/22/18 22:00 04/24/18 10:41 Lotrimin 1% Cream - TP 1 applic BID FRANCIE Administration Enoxaparin Sodium 40 mg 04/22/18 10:00 04/24/18 10:38 Lovenox - SQ 40 mg DAILY FRANCIE Administration Piperacillin Sod/Tazobactam 50 mls @ 100 mls/hr 04/22/18 18:00 04/24/18 10:36 Sod 3.375 gm/ Dextrose IVPB 100 mls/hr Q8H-IV FRANCIE Administration Protocol Lactulose 20 gm 04/22/18 10:00 04/24/18 10:37 Cephulac (Oral Use) GT 20 gm DAILY FRANCIE Administration Levetiracetam 1,500 mg 04/22/18 10:00 04/24/18 10:39 Keppra Oral Solution - GT 1,500 mg BID FRANCIE Administration Methylprednisolone Sodium Succinate 40 mg 04/23/18 14:00 04/24/18 05:31 Solu-Medrol - IVPUSH 40 mg TID FRANCIE Administration Metoclopramide HCl 5 mg 04/22/18 10:00 04/24/18 10:37 Reglan Oral Solution - GT 5 mg QID FRANCEI Administration Metoprolol Tartrate 50 mg 04/22/18 10:00 04/24/18 10:38 Lopressor - GT 50 mg BID FRANCIE Administration Mometasone Furoate 1 puff 04/22/18 22:00 04/23/18 22:06 Asmanex 220mcg - IH 1 puff HS FRANCIE Administration Multi-Ingredient Ointment 1 applic 04/22/18 22:00 04/24/18 10:41 Zinc Oxide TP 1 applic BID FRANCIE Administration Non-Formulary Medication 1 drop 04/22/18 10:00 Olopatadine Hcl [Olopatadine Hcl] OU DAILY [facility] Ranitidine HCl 150 mg 04/22/18 10:00 04/24/18 10:38 Zantac Oral Solution - GT 150 mg BID FRANCIE Administration Topiramate 25 mg 04/22/18 22:00 04/24/18 10:38 Topamax - PO 25 mg BID FRANCIE Administration Valproate Sodium 750 mg 04/22/18 10:00 04/24/18 10:40 Depakene - GT 750 mg BID FRANCIE Administration ASSESSMENT/PLAN:Patient is a 67 year old female with past medical history of cerebral anoxic injury, quadriplegia, COPD (on 2L O2), was brought in from [facility] as patient was noted to be desaturating at 88% with increased heart rate and diaphoresis. #Acute hypoxic respiratory failure likely 2/ Healthcare acquired, aspiration pneumonia IV antibiotics zosyn, vanco started on 04/22/18 ID and pulmonary consult IV steroid taper 40mg bid from today keep head end elevated blood cx, negative MRSA scree pending started on tube feed yesterday aspiration precaution continue nebulizers chest PT on nasal canula #Hx of cerebral anoxic injury -Continue current medications seizure disorder continue home meds ? copd HTN started on home med amlodipine 2.5mg hld on statin #FEN -on tube feed -Electrolytes wnl, routine bmp monitoring - on tube feed #Prophylaxis -Lovenox 40mg sq daily on zantac - #Disposition -DNR -admit to med-surg Visit type - Emergency Visit Emergency Visit: Yes ED Registration Date: 04/22/18 Care time: The patient presented to the Emergency Department on the above date and was hospitalized for further evaluation of their emergent condition. - New Patient This patient is new to me today: No - Critical Care Critical Care patient: No
--- NOTE | 2018-04-24 13:07 | PN ---
Progress Note (short form) - Note Progress Note: NAD on NC O2. Intermittent audible upper airway secretions. Intake & Output 04/21/18 04/22/18 04/23/18 04/24/18 23:59 23:59 23:59 23:59 Intake Total 437 720 50 Balance 437 720 50 Weight 89 lb 3.2 oz 106 lb 3.2 oz 106 lb Last Vital Signs Temp Pulse Resp BP Pulse Ox 97.8 F 95 H 20 146/79 98 04/24/18 11:00 04/24/18 11:00 04/24/18 11:00 04/24/18 11:00 04/23/18 21:00 Active Medications Albuterol/Ipratropium (Duoneb -) 1 amp NEB RQID [facility] Last Admin: 04/24/18 11:30 Dose: 1 amp Amlodipine Besylate (Norvasc -) 2.5 mg GT DAILY [facility] Last Admin: 04/24/18 10:38 Dose: 2.5 mg Arformoterol Tartrate (Brovana (Restricted To Pulmonology/Resp) -) 1 amp NEB RBID [facility] Last Admin: 04/24/18 06:59 Dose: 1 amp Ascorbic Acid (Vitamin C -) 500 mg GT BID [facility] Last Admin: 04/24/18 10:38 Dose: 500 mg Atorvastatin Calcium (Lipitor -) 20 mg GT HS [facility] Last Admin: 04/23/18 22:04 Dose: 20 mg Calcium Carbonate/Cholecalciferol (Os-Jamar 500+D -) 2 tab GT HS [facility] Last Admin: 04/23/18 22:06 Dose: 2 tab Clotrimazole (Lotrimin 1% Cream -) 1 applic TP BID [facility] Last Admin: 04/24/18 10:41 Dose: 1 applic Enoxaparin Sodium (Lovenox -) 40 mg SQ DAILY [facility] Last Admin: 04/24/18 10:38 Dose: 40 mg Piperacillin Sod/Tazobactam (Sod 3.375 gm/ Dextrose) 50 mls @ 100 mls/hr IVPB Q8H-IV FRANCIE; Protocol Last Admin: 04/24/18 10:36 Dose: 100 mls/hr Lactulose (Cephulac (Oral Use)) 20 gm GT DAILY [facility] Last Admin: 04/24/18 10:37 Dose: 20 gm Levetiracetam (Keppra Oral Solution -) 1,500 mg GT BID [facility] Last Admin: 04/24/18 10:39 Dose: 1,500 mg Methylprednisolone Sodium Succinate (Solu-Medrol -) 40 mg IVPUSH BID [facility] Metoclopramide HCl (Reglan Oral Solution -) 5 mg GT QID [facility] Last Admin: 04/24/18 10:37 Dose: 5 mg Metoprolol Tartrate (Lopressor -) 50 mg GT BID [facility] Last Admin: 04/24/18 10:38 Dose: 50 mg Mometasone Furoate (Asmanex 220mcg -) 1 puff IH HS [facility] Last Admin: 04/23/18 22:06 Dose: 1 puff Multi-Ingredient Ointment (Zinc Oxide) 1 applic TP BID [facility] Last Admin: 04/24/18 10:41 Dose: 1 applic Non-Formulary Medication (Olopatadine Hcl [Olopatadine Hcl]) 1 drop OU DAILY [facility] Ranitidine HCl (Zantac Oral Solution -) 150 mg GT BID [facility] Last Admin: 04/24/18 10:38 Dose: 150 mg Topiramate (Topamax -) 25 mg PO BID [facility] Last Admin: 04/24/18 10:38 Dose: 25 mg Valproate Sodium (Depakene -) 750 mg GT BID [facility] Last Admin: 04/24/18 10:40 Dose: 750 mg Constitutional: Yes: NAD on NC O2 Eyes: Yes: WNL HENT: Yes: WNL Neck: Yes: WNL Cardiovascular: Yes: Regular Rate and Rhythm, S1, S2 Respiratory: Yes: Diminished Gastrointestinal: Yes: Normal Bowel Sounds, Soft Extremities: Yes: contracted, shortened Labs: Laboratory Results - last 24 hr 04/24/18 04/24/18 08:05 08:05 WBC 6.5 RBC 4.05 Hgb 12.9 Hct 38.2 MCV 94.4 MCH 31.9 MCHC 33.7 RDW 13.0 Plt Count 223 MPV 7.9 Absolute Neuts (auto) 5.8 Neutrophils % 89.2 H Lymphocytes % 7.1 L Monocytes % 3.4 L Eosinophils % 0.1 Basophils % 0.2 Nucleated RBC % 0 Sodium 139 Potassium 3.7 Chloride 98 Carbon Dioxide 36 H Anion Gap 5 L BUN 9 Creatinine 0.3 L Creat Clearance w eGFR > 60 Random Glucose 117 H Calcium 8.1 L Total Bilirubin 0.1 L AST 14 L ALT 22 Alkaline Phosphatase 179 H Total Protein 6.3 L Albumin 2.5 L Assessment/Plan Problem List - Problems (1) Anoxic brain damage Code(s): G93.1 - ANOXIC BRAIN DAMAGE, NOT ELSEWHERE CLASSIFIED (2) Fracture of left humerus Code(s): S42.302A - UNSP FRACTURE OF SHAFT OF HUMERUS, LEFT ARM, INIT (3) Functional quadriplegia Code(s): R53.2 - FUNCTIONAL QUADRIPLEGIA (4) Hypercapnic respiratory failure Code(s): J96.92 - RESPIRATORY FAILURE, UNSPECIFIED WITH HYPERCAPNIA (5) Scoliosis deformity of spine Code(s): M41.9 - SCOLIOSIS, UNSPECIFIED Assessment/Plan ACUTE ON HYPERCAPNEIC RESP FAILURE REQUIRING NIPPV POSSIBLE PNEUMONIA SEVERE SCOLIOSIS O2 VIA NC O2 TOLERATED CAN CHANGE BACK TO VM IF NEEDED IV ANTIBIOTICS BRONCHODILATORS DVT PROPHYLAXSIS DR HORNER
--- NOTE | 2018-04-24 14:48 | PN ---
Progress Note (short form) - Note Progress Note: doing well off bipap on NC this afternoon Vital Signs Period Temp Pulse Resp BP Sys/Restrepo Pulse Ox Last 24 Hr 97.8 F-99.1 F 67-95 20-20 133-146/56-88 96-98 cor-rrr lungs clear abd soft,nt ext no edema CBC, BMP 04/24/18 08:05 04/24/18 08:05 Microbiology 04/23/18 02:00 Nares - Mrsa Screen - Right MRSA Screen - Final NO MRSA ISOLATED 04/23/18 02:00 Nares - Mrsa Screen - Left MRSA Screen - Final NO MRSA ISOLATED 04/22/18 00:35 Blood - Peripheral Venous Blood Culture - Preliminary NO GROWTH OBTAINED AFTER 48 HOURS, INCUBATION TO CONTINUE FOR 3 DAYS. 04/22/18 00:35 Blood - Peripheral Venous Blood Culture - Preliminary NO GROWTH OBTAINED AFTER 48 HOURS, INCUBATION TO CONTINUE FOR 3 DAYS. cxray improved Current Medications Albuterol/Ipratropium (Duoneb -) 1 amp NEB RQID [facility] Last Admin: 04/24/18 11:30 Dose: 1 amp Amlodipine Besylate (Norvasc -) 2.5 mg GT DAILY [facility] Last Admin: 04/24/18 10:38 Dose: 2.5 mg Arformoterol Tartrate (Brovana (Restricted To Pulmonology/Resp) -) 1 amp NEB RBID [facility] Last Admin: 04/24/18 06:59 Dose: 1 amp Ascorbic Acid (Vitamin C -) 500 mg GT BID [facility] Last Admin: 04/24/18 10:38 Dose: 500 mg Atorvastatin Calcium (Lipitor -) 20 mg GT HS [facility] Last Admin: 04/23/18 22:04 Dose: 20 mg Calcium Carbonate/Cholecalciferol (Os-Jamar 500+D -) 2 tab GT HS [facility] Last Admin: 04/23/18 22:06 Dose: 2 tab Clotrimazole (Lotrimin 1% Cream -) 1 applic TP BID [facility] Last Admin: 04/24/18 10:41 Dose: 1 applic Enoxaparin Sodium (Lovenox -) 40 mg SQ DAILY [facility] Last Admin: 04/24/18 10:38 Dose: 40 mg Piperacillin Sod/Tazobactam (Sod 3.375 gm/ Dextrose) 50 mls @ 100 mls/hr IVPB Q8H-IV FRANCIE; Protocol Last Admin: 04/24/18 10:36 Dose: 100 mls/hr Lactulose (Cephulac (Oral Use)) 20 gm GT DAILY [facility] Last Admin: 04/24/18 10:37 Dose: 20 gm Levetiracetam (Keppra Oral Solution -) 1,500 mg GT BID [facility] Last Admin: 04/24/18 10:39 Dose: 1,500 mg Methylprednisolone Sodium Succinate (Solu-Medrol -) 40 mg IVPUSH BID [facility] Metoclopramide HCl (Reglan Oral Solution -) 5 mg GT QID [facility] Last Admin: 04/24/18 10:37 Dose: 5 mg Metoprolol Tartrate (Lopressor -) 50 mg GT BID [facility] Last Admin: 04/24/18 10:38 Dose: 50 mg Mometasone Furoate (Asmanex 220mcg -) 1 puff IH HS [facility] Last Admin: 04/23/18 22:06 Dose: 1 puff Multi-Ingredient Ointment (Zinc Oxide) 1 applic TP BID [facility] Last Admin: 04/24/18 10:41 Dose: 1 applic Non-Formulary Medication (Olopatadine Hcl [Olopatadine Hcl]) 1 drop OU DAILY [facility] Ranitidine HCl (Zantac Oral Solution -) 150 mg GT BID [facility] Last Admin: 04/24/18 10:38 Dose: 150 mg Topiramate (Topamax -) 25 mg PO BID [facility] Last Admin: 04/24/18 10:38 Dose: 25 mg Valproate Sodium (Depakene -) 750 mg GT BID [facility] Last Admin: 04/24/18 10:40 Dose: 750 mg imp/reccd copd exacerbation hypercapneic resp failure ?pneumonia-zosyn day #3 cerebral anoxia/brain injury quadrapledia cpd- n 2 liters oxygen can switch to augmentin finish total 7 days d/w hospitalist plese call back if needed Problem List - Problems (1) Hypercapnic respiratory failure Code(s): J96.92 - RESPIRATORY FAILURE, UNSPECIFIED WITH HYPERCAPNIA (2) Pneumonia Code(s): J18.9 - PNEUMONIA, UNSPECIFIED ORGANISM (3) Anoxic brain damage Code(s): G93.1 - ANOXIC BRAIN DAMAGE, NOT ELSEWHERE CLASSIFIED
--- NOTE | 2018-04-24 15:04 | PN ---
Teaching Attending Note Name of Resident: Todd Garcia ATTENDING PHYSICIAN STATEMENT I saw and evaluated the patient. I reviewed the resident's note and discussed the case with the resident. I agree with the resident's findings and plan as documented. SUBJECTIVE: unable to obtain OBJECTIVE: Last Vital Signs Temp Pulse Resp BP Pulse Ox 36.6 C 67 20 146/72 96 04/24/18 13:48 04/24/18 13:48 04/24/18 13:48 04/24/18 13:48 04/24/18 09:00 Gen: nad Pulm: aditilamichele debigene, on venti mask CV: rrr w/o m/r/g Abd: +bs, s/nt/nd Ext: no c/c/e CBC, BMP 04/24/18 08:05 04/24/18 08:05 ASSESSMENT AND PLAN: - d/w Dr Diaz, change antibiotics to augmentin to finish course -tolerating tube feeds, increase as tolerated -wean oxygen, change from venti mask to NC to see if tolerates -continue steroids, titrate as tolerated -continue current management -dispo planning once oxygen requirement improves Problem List - Problems (1) Acute respiratory failure with hypoxia Code(s): J96.01 - ACUTE RESPIRATORY FAILURE WITH HYPOXIA (2) Pneumonia Code(s): J18.9 - PNEUMONIA, UNSPECIFIED ORGANISM (3) Functional quadriplegia Code(s): R53.2 - FUNCTIONAL QUADRIPLEGIA (4) Anoxic brain damage Code(s): G93.1 - ANOXIC BRAIN DAMAGE, NOT ELSEWHERE CLASSIFIED (5) HTN (hypertension) Code(s): I10 - ESSENTIAL (PRIMARY) HYPERTENSION (6) HLD (hyperlipidemia) Code(s): E78.5 - HYPERLIPIDEMIA, UNSPECIFIED (7) Seizure disorder Code(s): G40.909 - EPILEPSY, UNSP, NOT INTRACTABLE, WITHOUT STATUS EPILEPTICUS
[2018-04-24] MEDS ORDERED: AMOX TR/POT CLAV 500MG/125MG TABLETS (FP) PO SCH (17:30)
[2018-04-24] MEDS: AMOX TR/POT CLAV 500MG/125MG TABLETS (FP) PO SCH (17:44)
[2018-04-24] MEDS: CALCIUM 500MG/VIT-D 200 UNITS COMBO TABLET (FP) GT SCH (21:17)
[2018-04-24] MEDS: MOMETASONE FUROATE 220 MCG/IH INHALER IH SCH (21:18)
[2018-04-24] MEDS: ATORVASTATIN CA 20 MG TABLET (FP) GT SCH (21:18)
[2018-04-25 07:06] LABS: ARTERIAL BLD GAS O2 SATURATION 98.2 % (90-98.9); ARTERIAL BLOOD GAS BASE EXCESS 11.2 meq/l (-2-2); ARTERIAL BLOOD GAS pH 7.38 (7.35-7.45)
[2018-04-25] MEDS ORDERED: methylPREDNISolone NA SUCC 40 MG/1 ML VIAL IVPUSH ONE (07:15)
[2018-04-25] MEDS ORDERED: ALBUTEROL SO4 2.5/IPRATROPIUM 0.5 INH SOL 3 ML VIAL.NEB. NEB ONE (07:15)
[2018-04-25 07:16] LABS: ALLENS TEST POSITIVE
[2018-04-25 07:18] LABS: ARTERIAL BLOOD GAS PCO2 67.7 mmHg (35-45)
[2018-04-25] MEDS: ARFORMOTEROL TARTRATE 15 MCG/2 ML VIAL NEB SCH ×3 (07:26→20:34)
[2018-04-25] MEDS ORDERED: PT OWN MED DRAWER 7, Y5N ONE ×2 (08:13→21:16)
[2018-04-25] MEDS: AMOX TR/POT CLAV 500MG/125MG TABLETS (FP) PO SCH ×2 (08:55→17:38)
[2018-04-25 09:08] LABS: BASO % 0.1 % (0-2.0); EOS % 0.2 % (0-4.5); HEMATOCRIT 41.5 % (32.4-45.2); HEMOGLOBIN 14.3 GM/dL (10.7-15.3); LYMPH % 8.8 % (8-40); MCH 32.2 pg (25.7-33.7); MCHC 34.4 g/dl (32.0-36.0); MEAN CELL VOLUME 93.7 fl (80-96); MEAN PLT VOLUME 8.1 fl (7.5-11.1); MONO % 8.5 % (3.8-10.2); NEUT % 82.4 % (42.8-82.8); PLATELET COUNT 242 K/MM3 (134-434); RBC 4.43 M/mm3 (3.60-5.2); RDW 12.8 % (11.6-15.6); WHITE BLOOD COUNT 6.8 K/mm3 (4.0-10.0)
[2018-04-25 09:46] LABS: ALBUMIN 2.8 g/dl (3.4-5.0); ALK PHOS 193 U/L (45-117); ANION GAP 5 MMOL/L (8-16); BILIRUBIN,TOTAL 0.3 mg/dL (0.2-1); BLOOD UREA NITROGEN 14 mg/dL (7-18); CALCIUM 8.8 mg/dL (8.5-10.1); CHLORIDE 94 mmol/L (98-107); CO2 39 mmol/L (21-32); CREATININE 0.3 mg/dL (0.55-1.3); GLUCOSE,RANDOM 116 mg/dL (74-106); POTASSIUM 3.6 mmol/L (3.5-5.1); SGOT/AST 19 U/L (15-37); SGPT/ALT 29 U/L (13-61); SODIUM 138 mmol/L (136-145); TOT PROT 6.7 g/dl (6.4-8.2)
[2018-04-25] MEDS: RANITIDINE HCL 150 MG/10 ML UNIT-DOSE GT SCH ×2 (09:59→21:30)
[2018-04-25] MEDS: LACTULOSE 20 GM/30 ML UDC (FOR ORAL USE ONLY) GT SCH (09:59)
[2018-04-25] MEDS: ASCORBIC ACID 500 MG TABLET (FP) GT SCH ×2 (09:59→21:30)
[2018-04-25] MEDS: METOCLOPRAMIDE HCL 5 MG/5 ML UNIT DOSE CUP GT SCH ×4 (09:59→21:30)
[2018-04-25] MEDS: ENOXAPARIN NA (PORCINE) 40 MG/0.4 ML DISP.SYRIN SQ SCH (09:59)
[2018-04-25] MEDS: METOPROLOL TARTRATE 50 MG TABLET (FP) GT SCH ×2 (09:59→21:30)
[2018-04-25] MEDS: amLODIPine BESYLATE 2.5 MG TABLET (FP) GT SCH (09:59)
[2018-04-25] MEDS: VALPROATE SODIUM 250 MG/5 ML UNIT DOSE CUP GT SCH ×2 (10:00→21:31)
[2018-04-25] MEDS: levETIRAcetam 500 MG/5 ML ORAL SOLUTION (UNIT-DOSE CUPS) GT SCH ×2 (10:00→21:32)
[2018-04-25] MEDS: TOPIRAMATE 25 MG TABLET (FP) PO SCH ×2 (10:01→21:36)
[2018-04-25] MEDS: methylPREDNISolone NA SUCC 40 MG/1 ML VIAL IVPUSH SCH ×2 (10:03→21:30)
[2018-04-25] MEDS: ZINC OXIDE 20% TOPICAL OINTMENT 30 GM TUBE TP SCH ×2 (10:04→21:35)
[2018-04-25] MEDS: CLOTRIMAZOLE 1% CREAM 15 GM TUBE TP SCH ×2 (10:04→21:35)
[2018-04-25] MEDS: ALBUTEROL SO4 2.5/IPRATROPIUM 0.5 INH SOL 3 ML VIAL.NEB. NEB SCH ×4 (11:13→20:36)
--- NOTE | 2018-04-25 14:04 | PN ---
Progress Note (short form) - Note Progress Note: NAD on NC O2. Less audible upper airway secretions. Intake & Output 04/22/18 04/23/18 04/24/18 04/25/18 23:59 23:59 23:59 23:59 Intake Total 437 720 150 0 Balance 437 720 150 0 Weight 106 lb 3.2 oz 106 lb Last Vital Signs Temp Pulse Resp BP Pulse Ox 97.7 F 111 H 20 146/86 100 04/25/18 10:00 04/25/18 10:00 04/25/18 10:00 04/25/18 10:00 04/25/18 11:14 Active Medications Albuterol/Ipratropium (Duoneb -) 1 amp NEB RQID [facility] Last Admin: 04/25/18 12:07 Dose: 1 amp Amlodipine Besylate (Norvasc -) 2.5 mg GT DAILY [facility] Last Admin: 04/25/18 09:59 Dose: 2.5 mg Amoxicillin/Clavulanate Potassium (Augmentin - 500mg Tablet) 1 tab PO BID@0800, 1730 [facility] Last Admin: 04/25/18 08:55 Dose: 1 tab Arformoterol Tartrate (Brovana (Restricted To Pulmonology/Resp) -) 1 amp NEB RBID [facility] Last Admin: 04/25/18 08:40 Dose: 1 amp Ascorbic Acid (Vitamin C -) 500 mg GT BID [facility] Last Admin: 04/25/18 09:59 Dose: 500 mg Atorvastatin Calcium (Lipitor -) 20 mg GT HS [facility] Last Admin: 04/24/18 21:18 Dose: 20 mg Calcium Carbonate/Cholecalciferol (Os-Jamar 500+D -) 2 tab GT HS [facility] Last Admin: 04/24/18 21:17 Dose: 2 tab Clotrimazole (Lotrimin 1% Cream -) 1 applic TP BID [facility] Last Admin: 04/25/18 10:04 Dose: 1 applic Enoxaparin Sodium (Lovenox -) 40 mg SQ DAILY [facility] Last Admin: 04/25/18 09:59 Dose: 40 mg Lactulose (Cephulac (Oral Use)) 20 gm GT DAILY [facility] Last Admin: 04/25/18 09:59 Dose: 20 gm Levetiracetam (Keppra Oral Solution -) 1,500 mg GT BID [facility] Last Admin: 04/25/18 10:00 Dose: 1,500 mg Methylprednisolone Sodium Succinate (Solu-Medrol -) 40 mg IVPUSH BID [facility] Last Admin: 04/25/18 10:03 Dose: Not Given Metoclopramide HCl (Reglan Oral Solution -) 5 mg GT QID [facility] Last Admin: 04/25/18 13:28 Dose: 5 mg Metoprolol Tartrate (Lopressor -) 50 mg GT BID [facility] Last Admin: 04/25/18 09:59 Dose: 50 mg Mometasone Furoate (Asmanex 220mcg -) 1 puff IH HS [facility] Last Admin: 04/24/18 21:18 Dose: 1 puff Multi-Ingredient Ointment (Zinc Oxide) 1 applic TP BID [facility] Last Admin: 04/25/18 10:04 Dose: 1 applic Non-Formulary Medication (Olopatadine Hcl [Olopatadine Hcl]) 1 drop OU DAILY [facility] Ranitidine HCl (Zantac Oral Solution -) 150 mg GT BID [facility] Last Admin: 04/25/18 09:59 Dose: 150 mg Topiramate (Topamax -) 25 mg PO BID [facility] Last Admin: 04/25/18 10:01 Dose: 25 mg Valproate Sodium (Depakene -) 750 mg GT BID [facility] Last Admin: 04/25/18 10:00 Dose: 750 mg Constitutional: Yes: NAD on NC O2 Eyes: Yes: WNL HENT: Yes: WNL Neck: Yes: WNL Cardiovascular: Yes: Regular Rate and Rhythm, S1, S2 Respiratory: Yes: Diminished Gastrointestinal: Yes: Normal Bowel Sounds, Soft Extremities: Yes: contracted, shortened Labs: Laboratory Results - last 24 hr 04/25/18 04/25/18 04/25/18 06:56 08:30 08:30 WBC 6.8 RBC 4.43 Hgb 14.3 Hct 41.5 MCV 93.7 MCH 32.2 MCHC 34.4 RDW 12.8 Plt Count 242 MPV 8.1 Absolute Neuts (auto) 5.6 Neutrophils % 82.4 Lymphocytes % 8.8 D Monocytes % 8.5 D Eosinophils % 0.2 D Basophils % 0.1 Nucleated RBC % 0 Puncture Site Right radial ABG pH 7.38 ABG pCO2 at Pt Temp 67.7 H* ABG pO2 at Pt Temp 119.0 H ABG HCO3 38.9 H ABG O2 Sat (Measured) 98.2 ABG O2 Content 18.5 ABG Base Excess 11.2 H Scott Test Positive O2 Delivery Device Aerosol mask Oxygen Flow Rate 6l Sodium 138 Potassium 3.6 Chloride 94 L Carbon Dioxide 39 H Anion Gap 5 L BUN 14 Creatinine 0.3 L Creat Clearance w eGFR > 60 Random Glucose 116 H Calcium 8.8 Total Bilirubin 0.3 AST 19 ALT 29 Alkaline Phosphatase 193 H Total Protein 6.7 Albumin 2.8 L Assessment/Plan Problem List - Problems (1) Anoxic brain damage Code(s): G93.1 - ANOXIC BRAIN DAMAGE, NOT ELSEWHERE CLASSIFIED (2) Fracture of left humerus Code(s): S42.302A - UNSP FRACTURE OF SHAFT OF HUMERUS, LEFT ARM, INIT (3) Functional quadriplegia Code(s): R53.2 - FUNCTIONAL QUADRIPLEGIA (4) Hypercapnic respiratory failure Code(s): J96.92 - RESPIRATORY FAILURE, UNSPECIFIED WITH HYPERCAPNIA (5) Scoliosis deformity of spine Code(s): M41.9 - SCOLIOSIS, UNSPECIFIED Assessment/Plan ACUTE ON HYPERCAPNEIC RESP FAILURE REQUIRING NIPPV POSSIBLE PNEUMONIA SEVERE SCOLIOSIS O2 VIA NC O2 TOLERATED CAN CHANGE BACK TO VM IF NEEDED IV ANTIBIOTICS BRONCHODILATORS DVT PROPHYLAXSIS DR HORNER
--- NOTE | 2018-04-25 14:18 | PN ---
Physical Exam: SUBJECTIVE: Patient seen and examined in morning 6:30 am pt was in respitaory distress spo2 drops to 88%. pt had diffuse wheezing. Iv steroid was given . nebulizer given pt started on bipap. abg done on nasal canulal on reevaluation after 10 min pt looks much better. OBJECTIVE: Vital Signs Period Temp Pulse Resp BP Sys/Restrepo Pulse Ox Last 24 Hr 97.7 F-98.2 F 77-111 20-20 130-159/52-88 91-100 GENERAL: lying in bed, nonverbal LUNGS: respiratory effort improved on bipap. wheezing decreased after steroid HEART: Regular rate and rhythm, normal S1 and S2 normal ABDOMEN: Soft, nontender, not distended, normoactive bowel sounds, +PEG tube in place. UPPER EXTREMITIES: b/l arms contracted, flexed. No peripheral edema. LOWER EXTREMITIES: b/l contracted . No peripheral edema. NEUROLOGICAL: unable to assess as patient is nonresponsive and unable to cooperate SKIN: Warm, dry Laboratory Results - last 24 hr 04/25/18 04/25/18 04/25/18 06:56 08:30 08:30 WBC 6.8 RBC 4.43 Hgb 14.3 Hct 41.5 MCV 93.7 MCH 32.2 MCHC 34.4 RDW 12.8 Plt Count 242 MPV 8.1 Absolute Neuts (auto) 5.6 Neutrophils % 82.4 Lymphocytes % 8.8 D Monocytes % 8.5 D Eosinophils % 0.2 D Basophils % 0.1 Nucleated RBC % 0 Puncture Site Right radial ABG pH 7.38 ABG pCO2 at Pt Temp 67.7 H* ABG pO2 at Pt Temp 119.0 H ABG HCO3 38.9 H ABG O2 Sat (Measured) 98.2 ABG O2 Content 18.5 ABG Base Excess 11.2 H Scott Test Positive O2 Delivery Device Aerosol mask Oxygen Flow Rate 6l Sodium 138 Potassium 3.6 Chloride 94 L Carbon Dioxide 39 H Anion Gap 5 L BUN 14 Creatinine 0.3 L Creat Clearance w eGFR > 60 Random Glucose 116 H Calcium 8.8 Total Bilirubin 0.3 AST 19 ALT 29 Alkaline Phosphatase 193 H Total Protein 6.7 Albumin 2.8 L Active Medications Generic Name Dose Route Start Last Admin Trade Name Freq PRN Reason Stop Dose Admin Albuterol/Ipratropium 1 amp 04/22/18 08:00 04/25/18 12:07 Duoneb - NEB 1 amp RQID FRANCIE Administration Amlodipine Besylate 2.5 mg 04/24/18 10:00 04/25/18 09:59 Norvasc - GT 2.5 mg DAILY FRANCIE Administration Amoxicillin/Clavulanate Potassium 1 tab 04/24/18 17:30 04/25/18 08:55 Augmentin - 500mg Tablet PO 1 tab BID@0800,1730 FRANCIE Administration Arformoterol Tartrate 1 amp 04/22/18 08:00 04/25/18 08:40 Brovana (Restricted To Pulmonology/Resp) - NEB 1 amp RBID FRANCIE Administration Ascorbic Acid 500 mg 04/22/18 10:00 04/25/18 09:59 Vitamin C - GT 500 mg BID FRANCIE Administration Atorvastatin Calcium 20 mg 04/22/18 22:00 04/24/18 21:18 Lipitor - GT 20 mg HS FRANCIE Administration Calcium Carbonate/Cholecalciferol 2 tab 04/22/18 22:00 04/24/18 21:17 Os-Jamar 500+D - GT 2 tab HS FRANCIE Administration Clotrimazole 1 applic 04/22/18 22:00 04/25/18 10:04 Lotrimin 1% Cream - TP 1 applic BID FRANCIE Administration Enoxaparin Sodium 40 mg 04/22/18 10:00 04/25/18 09:59 Lovenox - SQ 40 mg DAILY FRANCIE Administration Lactulose 20 gm 04/22/18 10:00 04/25/18 09:59 Cephulac (Oral Use) GT 20 gm DAILY FRANCIE Administration Levetiracetam 1,500 mg 04/22/18 10:00 04/25/18 10:00 Keppra Oral Solution - GT 1,500 mg BID FRANCIE Administration Methylprednisolone Sodium Succinate 40 mg 04/24/18 22:00 04/25/18 10:03 Solu-Medrol - IVPUSH Not Given BID FRANCIE Metoclopramide HCl 5 mg 04/22/18 10:00 04/25/18 13:28 Reglan Oral Solution - GT 5 mg QID FRANCIE Administration Metoprolol Tartrate 50 mg 04/22/18 10:00 04/25/18 09:59 Lopressor - GT 50 mg BID FRANCIE Administration Mometasone Furoate 1 puff 04/22/18 22:00 04/24/18 21:18 Asmanex 220mcg - IH 1 puff HS FRANCIE Administration Multi-Ingredient Ointment 1 applic 04/24/18 18:16 04/25/18 10:04 Zinc Oxide TP 1 applic BID FRANCIE Administration Non-Formulary Medication 1 drop 04/22/18 10:00 Olopatadine Hcl [Olopatadine Hcl] OU DAILY FRANCIE Ranitidine HCl 150 mg 04/22/18 10:00 04/25/18 09:59 Zantac Oral Solution - GT 150 mg BID FRANCIE Administration Topiramate 25 mg 04/22/18 22:00 04/25/18 10:01 Topamax - PO 25 mg BID FRANCIE Administration Valproate Sodium 750 mg 04/22/18 10:00 04/25/18 10:00 Depakene - GT 750 mg BID FRANCIE Administration ASSESSMENT/PLAN:Patient is a 67 year old female with past medical history of cerebral anoxic injury, quadriplegia, COPD (on 2L O2), was brought in from [facility] as patient was noted to be desaturating at 88% with increased heart rate and diaphoresis. #Acute hypoxic respiratory failure likely 2/2 Healthcare acquired, aspiration pneumonia on augmentin bid ID and pulmonary consult IV steroid taper 40mg bid continue same for today keep head end elevated blood cx, negative continue tube feed aspiration precaution continue nebulizers chest PT on nasal canula #Hx of cerebral anoxic injury -Continue current medications seizure disorder continue home meds ? copd HTN started on home med amlodipine 2.5mg hld on statin #FEN -on tube feed -Electrolytes wnl, routine bmp monitoring - on tube feed #Prophylaxis -Lovenox 40mg sq daily on zantac - #Disposition -DNR -admit to med-surg Visit type - Emergency Visit Emergency Visit: Yes ED Registration Date: 04/22/18 Care time: The patient presented to the Emergency Department on the above date and was hospitalized for further evaluation of their emergent condition. - New Patient This patient is new to me today: No - Critical Care Critical Care patient: No
--- NOTE | 2018-04-25 15:03 | PN ---
Teaching Attending Note Name of Resident: Todd Garcia ATTENDING PHYSICIAN STATEMENT I saw and evaluated the patient. I reviewed the resident's note and discussed the case with the resident. I agree with the resident's findings and plan as documented. SUBJECTIVE: unable to obtain OBJECTIVE: Last Vital Signs Temp Pulse Resp BP Pulse Ox 36.8 C 96 H 20 159/88 100 04/25/18 14:04 04/25/18 14:04 04/25/18 14:04 04/25/18 14:04 04/25/18 11:14 Gen: nad Pulm: anterior ronchi bilaterally, on bipap CV: rrr w/o m/r/g Abd: +bs, s/nt/nd Ext: no c/c/e CBC, BMP 04/25/18 08:30 04/25/18 08:30 ASSESSMENT AND PLAN: -patient tolerated NC yesterday, but early this am became tachypneic and tachycardic -placed back on bipap -titrate back to NC -continue augmentin -continue solumedrol -continue current management Problem List - Problems (1) Acute respiratory failure with hypoxia Code(s): J96.01 - ACUTE RESPIRATORY FAILURE WITH HYPOXIA (2) Pneumonia Code(s): J18.9 - PNEUMONIA, UNSPECIFIED ORGANISM (3) Functional quadriplegia Code(s): R53.2 - FUNCTIONAL QUADRIPLEGIA (4) Anoxic brain damage Code(s): G93.1 - ANOXIC BRAIN DAMAGE, NOT ELSEWHERE CLASSIFIED (5) HTN (hypertension) Code(s): I10 - ESSENTIAL (PRIMARY) HYPERTENSION (6) HLD (hyperlipidemia) Code(s): E78.5 - HYPERLIPIDEMIA, UNSPECIFIED (7) Seizure disorder Code(s): G40.909 - EPILEPSY, UNSP, NOT INTRACTABLE, WITHOUT STATUS EPILEPTICUS
[2018-04-25] MEDS: CALCIUM 500MG/VIT-D 200 UNITS COMBO TABLET (FP) GT SCH (21:30)
[2018-04-25] MEDS: ATORVASTATIN CA 20 MG TABLET (FP) GT SCH (21:30)
[2018-04-25] MEDS: MOMETASONE FUROATE 220 MCG/IH INHALER IH SCH ×2 (21:35→21:52)
[2018-04-26] MEDS: ARFORMOTEROL TARTRATE 15 MCG/2 ML VIAL NEB SCH (07:20)
[2018-04-26] MEDS: ALBUTEROL SO4 2.5/IPRATROPIUM 0.5 INH SOL 3 ML VIAL.NEB. NEB SCH ×3 (07:20→15:45)
--- NOTE | 2018-04-26 10:27 | DS ---
Physical Exam: SUBJECTIVE: Patient seen and examined OBJECTIVE: Vital Signs Period Temp Pulse Resp BP Sys/Restrepo Pulse Ox Last 24 Hr 98.2 F-98.8 F 70-99 18-20 114-169/53-88 95-100 PHYSICAL EXAM GENERAL: lying in bed, nonverbal LUNGS: respiratory effort improved, no wheezing, no crackles HEART: Regular rate and rhythm, normal S1 and S2 normal ABDOMEN: Soft, nontender, not distended, normoactive bowel sounds, +PEG tube in place. UPPER EXTREMITIES: b/l arms contracted, flexed. No peripheral edema. LOWER EXTREMITIES: b/l contracted . No peripheral edema. NEUROLOGICAL: unable to assess as patient is nonresponsive and unable to cooperate SKIN: Warm, dry LABS CBCD WBC 6.8 K/mm3 (4.0-10.0) 04/25/18 08:30 RBC 4.43 M/mm3 (3.60-5.2) 04/25/18 08:30 Hgb 14.3 GM/dL (10.7-15.3) 04/25/18 08:30 Hct 41.5 % (32.4-45.2) 04/25/18 08:30 MCV 93.7 fl (80-96) 04/25/18 08:30 MCHC 34.4 g/dl (32.0-36.0) 04/25/18 08:30 RDW 12.8 % (11.6-15.6) 04/25/18 08:30 Plt Count 242 K/MM3 (134-434) 04/25/18 08:30 MPV 8.1 fl (7.5-11.1) 04/25/18 08:30 CMP Sodium 138 mmol/L (136-145) 04/25/18 08:30 Potassium 3.6 mmol/L (3.5-5.1) 04/25/18 08:30 Chloride 94 mmol/L (98-107) L 04/25/18 08:30 Carbon Dioxide 39 mmol/L (21-32) H 04/25/18 08:30 Anion Gap 5 MMOL/L (8-16) L 04/25/18 08:30 BUN 14 mg/dL (7-18) 04/25/18 08:30 Creatinine 0.3 mg/dL (0.55-1.3) L 04/25/18 08:30 Creat Clearance w eGFR > 60 (>60) 04/25/18 08:30 Random Glucose 116 mg/dL (74-106) H 04/25/18 08:30 Calcium 8.8 mg/dL (8.5-10.1) 04/25/18 08:30 Total Bilirubin 0.3 mg/dL (0.2-1) 04/25/18 08:30 AST 19 U/L (15-37) 04/25/18 08:30 ALT 29 U/L (13-61) 04/25/18 08:30 Alkaline Phosphatase 193 U/L (45-117) H 04/25/18 08:30 Total Protein 6.7 g/dl (6.4-8.2) 04/25/18 08:30 Albumin 2.8 g/dl (3.4-5.0) L 04/25/18 08:30 Microbiology 04/22/18 00:35 Blood - Peripheral Venous Blood Culture - Preliminary NO GROWTH OBTAINED AFTER 96 HOURS, INCUBATION TO CONTINUE FOR 1 DAYS. 04/22/18 00:35 Blood - Peripheral Venous Blood Culture - Preliminary NO GROWTH OBTAINED AFTER 96 HOURS, INCUBATION TO CONTINUE FOR 1 DAYS. 04/23/18 02:00 Nares - Mrsa Screen - Right MRSA Screen - Final NO MRSA ISOLATED 04/23/18 02:00 Nares - Mrsa Screen - Left MRSA Screen - Final NO MRSA ISOLATED HOSPITAL COURSE: Patient is a 67 year old female with past medical history of cerebral anoxic injury, quadriplegia, COPD (on 2L O2), was brought in from [facility] as patient was noted to be desaturating at 88% with increased heart rate and diaphoresis. History is limited by [facility] notes. Attempted to call NH, but was told to call in the morning as no one would be available to give information at this time. In hospital pt found to have acute hypoxic hypercapnic respiratory failure and pt was started on bipap with steroid. PT was also treated on iv antibiotics and later on changed o po antibiotics. Pt condition improved and pt is maintaining a saturation of > 90 % on 2 L oxygen. Case discussed with dr ondina hoyt that patient was on oxygen in [facility] also. Pt dc to [facility] in stable condition on po antibiotics and taper steroid. Take all the medications as you were taking it before Take augment 500 mg twice a day for 2 more days We have started you on short course of steroid. take 40 mg tomorrow 30 mg on 04/28/18 20mg on 04/29/18 10 mg on 04/30/18 take aspiration precautions Keep head end elevated. Follow up with your primary care with in one week. continue with your tube feed as you were taking it before. use 2L of oxygen. keep spo2> [address] philly hoyt. He accepted the patient. If you develop shortness of breath, chest pain, palpitations or any other new symptom then call your doctor or call MD Date of Admission:04/22/18 Date of Discharge: 04/26/18 Minutes to complete discharge: 45 Discharge Summary Reason For Visit: ASPIRATION PNEUMONIA Current Active Problems Acute respiratory failure with hypoxia (Acute) Anoxic brain damage (Acute) Fracture of left humerus (Acute) Functional quadriplegia (Acute) HLD (hyperlipidemia) (Acute) HTN (hypertension) (Acute) Hypercapnic respiratory failure (Acute) Pneumonia (Acute) Scoliosis deformity of spine (Acute) Seizure disorder (Acute) Condition: Stable - Instructions Diet, Activity, Other Instructions: Take all the medications as you were taking it before Take augment 500 mg twice a day for 2 more days We have started you on short course of steroid. take 40 mg tomorrow 30 mg on 04/28/18 20mg on 04/29/18 10 mg on 04/30/18 take aspiration precautions Keep head end elevated. Follow up with your primary care with in one week. continue with your tube feed as you were taking it before. use 2L of oxygen. keep spo2> [address] philly hoyt. He accepted the patient. If you develop shortness of breath, chest pain, palpitations or any other new symptom then call your doctor or call MD Referrals: Tiffany Diaz MD [Staff Physician] - 2 Weeks ON STAFF,NOT [Primary Care Provider] - Disposition: [facility] F[facility]ILITY - Home Medications Comprehensive Discharge Medication List: Ambulatory Orders Alendronate Sodium [Binosto] 70 mg GT WEEKLY 04/22/18 Amlodipine Besylate 2.5 mg GT DAILY 04/22/18 Arformoterol Tartrate [Brovana -] 1 neb NEB BID 04/22/18 Arformoterol Tartrate [Brovana] 15 mcg IH BID 04/22/18 Ascorbic Acid 500 mg GT BID 04/22/18 Budesonide 1 mg IH BID 04/22/18 Calcium Carbonate/Vitamin D3 [Oystercal-D 500 mg-400 Unit Tb] 2 each GT HS 04/22 Ipratropium/Albuterol Sulfate [Iprat-Albut 0.5-3(2.5) mg/3 ml] 1 vial IH QID Lactulose 30 ml GT DAILY 04/22/18 Metoclopramide HCl 5 mg PO QID 04/22/18 Metoprolol Tartrate [Lopressor -] 50 mg GT BID 04/22/18 Olopatadine HCl 1 drop OU DAILY 04/22/18 Omeprazole 20 mg GT DAILY 04/22/18 Simvastatin 40 mg GT DAILY 04/22/18 Topiramate 1 tab GT BID 04/22/18 Valproic Acid (As Sodium Salt) [Valproic Acid] 15 ml GT Q12H 04/22/18 Zinc Oxide [Boudreauxs] 10 gm TP BID 04/22/18 levETIRAcetam [levETIRAcetam ORAL SUSPENSION] 15 ml GT BID 04/22/18 Amox-Tr/K Cl [Augmentin 500-125mg Tablet -] 1 tab PO BID@0800,1730 #6 tablet Prednisone See Taper PO DAILY #10 tablet 04/26/18 This patient is new to me today: No Emergency Visit: Yes ED Registration Date: 04/22/18 Care time: The patient presented to the Emergency Department on the above date and was hospitalized for further evaluation of their emergent condition. Critical Care patient: No - Discharge Referral Referred to [facility] No
[2018-04-26] MEDS ORDERED: PT OWN MED DRAWER 7, Y5N ONE (10:37)
[2018-04-26] MEDS: METOPROLOL TARTRATE 50 MG TABLET (FP) GT SCH (10:38)
[2018-04-26] MEDS: amLODIPine BESYLATE 2.5 MG TABLET (FP) GT SCH (10:38)
[2018-04-26] MEDS: ASCORBIC ACID 500 MG TABLET (FP) GT SCH (10:39)
[2018-04-26] MEDS: levETIRAcetam 500 MG/5 ML ORAL SOLUTION (UNIT-DOSE CUPS) GT SCH (10:39)
[2018-04-26] MEDS: VALPROATE SODIUM 250 MG/5 ML UNIT DOSE CUP GT SCH (10:51)
[2018-04-26] MEDS: AMOX TR/POT CLAV 500MG/125MG TABLETS (FP) PO SCH ×2 (10:52→17:34)
[2018-04-26] MEDS: LACTULOSE 20 GM/30 ML UDC (FOR ORAL USE ONLY) GT SCH (10:52)
[2018-04-26] MEDS: CLOTRIMAZOLE 1% CREAM 15 GM TUBE TP SCH (10:52)
[2018-04-26] MEDS: ENOXAPARIN NA (PORCINE) 40 MG/0.4 ML DISP.SYRIN SQ SCH (10:53)
[2018-04-26] MEDS: METOCLOPRAMIDE HCL 5 MG/5 ML UNIT DOSE CUP GT SCH ×3 (10:54→17:34)
[2018-04-26] MEDS: ZINC OXIDE 20% TOPICAL OINTMENT 30 GM TUBE TP SCH (10:55)
[2018-04-26] MEDS: RANITIDINE HCL 150 MG/10 ML UNIT-DOSE GT SCH (10:55)
[2018-04-26] MEDS: TOPIRAMATE 25 MG TABLET (FP) PO SCH (10:57)
--- NOTE | 2018-04-26 11:43 | PN ---
Progress Note (short form) - Note Progress Note: PULMONARY VSS/AFEBRILE Constitutional: Yes: NAD on NC O2 Eyes: Yes: WNL HENT: Yes: WNL Neck: Yes: WNL Cardiovascular: Yes: Regular Rate and Rhythm, S1, S2 Respiratory: Yes: Diminished Gastrointestinal: Yes: Normal Bowel Sounds, Soft Extremities: Yes: contracted, shortened Labs: Assessment/Plan Problem List - Problems (1) Anoxic brain damage Code(s): G93.1 - ANOXIC BRAIN DAMAGE, NOT ELSEWHERE CLASSIFIED (2) Fracture of left humerus Code(s): S42.302A - UNSP FRACTURE OF SHAFT OF HUMERUS, LEFT ARM, INIT (3) Functional quadriplegia Code(s): R53.2 - FUNCTIONAL QUADRIPLEGIA (4) Hypercapnic respiratory failure Code(s): J96.92 - RESPIRATORY FAILURE, UNSPECIFIED WITH HYPERCAPNIA (5) Scoliosis deformity of spine Code(s): M41.9 - SCOLIOSIS, UNSPECIFIED Assessment/Plan ACUTE ON HYPERCAPNEIC RESP FAILURE REQUIRING NIPPV PNEUMONIA SEVERE SCOLIOSIS ZENA/FUNCTIONAL QUAD/SNF RESIDENT O2 VIA NC O2 TOLERATED CAN CHANGE BACK TO VM IF NEEDED ANTIBIOTICS BRONCHODILATORS DVT PROPHYLAXSIS NO OBJECTION TO TRANSFER BACK TO SNF TO CONTINUE TREATMENT Verenice LIGHT MD Problem List - Problems (1) Anoxic brain damage Code(s): G93.1 - ANOXIC BRAIN DAMAGE, NOT ELSEWHERE CLASSIFIED (2) Fracture of left humerus Code(s): S42.302A - UNSP FRACTURE OF SHAFT OF HUMERUS, LEFT ARM, INIT (3) Functional quadriplegia Code(s): R53.2 - FUNCTIONAL QUADRIPLEGIA (4) Hypercapnic respiratory failure Code(s): J96.92 - RESPIRATORY FAILURE, UNSPECIFIED WITH HYPERCAPNIA (5) Scoliosis deformity of spine Code(s): M41.9 - SCOLIOSIS, UNSPECIFIED
[2018-04-26] MEDS: methylPREDNISolone NA SUCC 40 MG/1 ML VIAL IVPUSH SCH (12:10)
[2018-04-26 14:02] VITALS: BP 146/92; PULSE 75; TEMP 98.4
--- NOTE | 2018-04-26 15:18 | PN ---
Teaching Attending Note Name of Resident: Todd Garcia ATTENDING PHYSICIAN STATEMENT I saw and evaluated the patient. I reviewed the resident's note and discussed the case with the resident. I agree with the resident's findings and plan as documented. SUBJECTIVE: unable to obtain OBJECTIVE: Last Vital Signs Temp Pulse Resp BP Pulse Ox 36.9 C 75 20 146/92 95 04/26/18 13:59 04/26/18 13:59 04/26/18 13:59 04/26/18 13:59 04/26/18 13:14 Gen: nad Pulm: ctab CV: rrr w/o m/r/g Abd: +bs, s/nt/nd Ext: no c/c/e ASSESSMENT AND PLAN: -now on NC 1.5L -received solumedrol today, change to prednisone tomorrow -safe for discharge Problem List - Problems (1) Acute respiratory failure with hypoxia Code(s): J96.01 - ACUTE RESPIRATORY FAILURE WITH HYPOXIA (2) Pneumonia Code(s): J18.9 - PNEUMONIA, UNSPECIFIED ORGANISM (3) Functional quadriplegia Code(s): R53.2 - FUNCTIONAL QUADRIPLEGIA (4) Anoxic brain damage Code(s): G93.1 - ANOXIC BRAIN DAMAGE, NOT ELSEWHERE CLASSIFIED (5) HTN (hypertension) Code(s): I10 - ESSENTIAL (PRIMARY) HYPERTENSION (6) HLD (hyperlipidemia) Code(s): E78.5 - HYPERLIPIDEMIA, UNSPECIFIED (7) Seizure disorder Code(s): G40.909 - EPILEPSY, UNSP, NOT INTRACTABLE, WITHOUT STATUS EPILEPTICUS
[2018-04-27] MEDS ORDERED: predniSONE 20 MG TABLET (UD) PO SCH (10:00)
== END 2018-04-26 17:54 | DRG 177 ==
LOC: JER 23:12 → JERBED 04-22 02:56 → J7W 04-22 12:24
PROVIDERS: ADMIT Internal Medicine; ATTEND Internal Medicine
DX: J69.0 Pneumonitis due to inhalation of food and vomit (principal); J96.01 Acute respiratory failure with hypoxia; R53.2 Functional quadriplegia; J96.02 Acute respiratory failure with hypercapnia; J44.1 Chronic obstructive pulmonary disease with (acute) exacerbation; G93.1 Anoxic brain damage, not elsewhere classified; E88.09 Other disorders of plasma-protein metabolism, not elsewhere classified; M41.9 Scoliosis, unspecified; G40.909 Epilepsy, unspecified, not intractable, without status epilepticus; Z99.81 Dependence on supplemental oxygen; R00.0 Tachycardia, unspecified
CPT/HCPCS: 36415; 36600; 71045-TC-FY; 80053; 81003; 81015; 82375; 82803; 83050; 83605; 83735; 84100; 85025; 85610; 85730; 87040; 87081; 87804; 93005; 93010; 94640; 94660; 94761; 99284-25; J7030

== ENCOUNTER 2018-04-29 10:40 | Inpatient (IN) | payer OTHER ==
[2018-04-29 11:15] VITALS: BMI 30.5
[2018-04-29] MEDS ORDERED: ALBUTEROL SO4 2.5/IPRATROPIUM 0.5 INH SOL 3 ML VIAL.NEB. NEB ONE ×3 (11:52→20:20)
[2018-04-29] MEDS ORDERED: methylPREDNISolone NA SUCC 125 MG/2 ML VIAL IVPB ONE (12:50)
[2018-04-29 12:52] LABS: BASO % 0.4 % (0-2.0); EOS % 0.4 % (0-4.5); HEMATOCRIT 43.1 % (32.4-45.2); HEMOGLOBIN 14.5 GM/dL (10.7-15.3); LYMPH % 5.6 % (8-40); MCH 31.1 pg (25.7-33.7); MCHC 33.6 g/dl (32.0-36.0); MEAN CELL VOLUME 92.6 fl (80-96); MEAN PLT VOLUME 7.9 fl (7.5-11.1); MONO % 1.5 % (3.8-10.2); NEUT % 92.1 % (42.8-82.8); PLATELET COUNT 264 K/MM3 (134-434); RBC 4.65 M/mm3 (3.60-5.2); RDW 12.8 % (11.6-15.6); WHITE BLOOD COUNT 16.3 K/mm3 (4.0-10.0)
--- NOTE | 2018-04-29 12:55 | PDOC ---
History of Present Illness - General Chief Complaint: Shortness of Breath Stated Complaint: Shortness of Breath Time Seen by Provider: 04/29/18 11:30 History Source: EMS, [facility] Records Exam Limitations: Clinical Condition - History of Present Illness Initial Comments: 04/29/18 12:58 Patient is a 67F with history of anoxic brain injury, recent admission for aspiration PNA (d/c 04/26 on augmentin), COPD here today after being found to have an spo2 of 80% and tachypneic at her detention. Patient is unable to provide history given neuro injury. EMS reports that patient was at 88% when they got there, which is her baseline. No fevers or episodes of vomiting were noted. Past History - Past Medical History Allergies/Adverse Reactions: Allergies Allergy/AdvReac Type Severity Reaction Status Date / Time No Known Allergies Allergy Verified 04/29/18 11:14 Home Medications: Ambulatory Orders Alendronate Sodium [Binosto] 70 mg GT WEEKLY 04/22/18 Amlodipine Besylate 2.5 mg GT DAILY 04/22/18 Ascorbic Acid 500 mg GT BID 04/22/18 Budesonide 1 mg IH BID 04/22/18 Lactulose 30 ml GT DAILY 04/22/18 Metoclopramide HCl 5 mg GT QID 04/22/18 Metoprolol Tartrate [Lopressor -] 50 mg GT BID 04/22/18 Omeprazole 20 mg GT DAILY 04/22/18 Simvastatin 40 mg GT DAILY 04/22/18 Topiramate 1 tab GT DAILY 04/22/18 Valproic Acid (As Sodium Salt) [Valproic Acid] 750 mg GT Q12H 04/22/18 Albuterol 2.5/Ipratropium 0.5 [Duoneb -] 1 neb IH QID 04/29/18 Arformoterol Tartrate [Brovana] 15 mcg IH BID 04/29/18 Budesonide [Pulmicort 0.25 mg -] 1 neb PO BID 04/29/18 Calcium Carbonate/Vitamin D3 [Oyster Shell 500-Vit D3 200 Tb] 2 tab GT HS Multivitamin/Iron/Folic Acid [Centrum Adults Tablet] 15 ml GT DAILY 04/29/18 Olopatadine HCl [Pataday] 2.5 ml OU DAILY 04/29/18 Phenobarbital 32.4 mg GT BID 04/29/18 Protein Supplement [Promod] 30 ml GT DAILY 04/29/18 Topiramate 200 mg GT BID 04/29/18 levETIRAcetam [Keppra -] 1,500 mg GT BID 04/29/18 CVA: Yes COPD: No (cerebral palsy/brian hearing loss.) HTN: Yes Hypercholesterolemia: Yes - Suicide/Smoking/Psychosocial Hx Smoking History: Never smoked Have you smoked in the past 12 months: No Information on smoking cessation initiated: Yes Hx Alcohol Use: No Drug/Substance Use Hx: No Review of Systems - Review of Systems Able to Perform ROS?: No (2/2 clinical condition) *Physical Exam - Vital Signs Last Vital Signs Temp Pulse Resp BP Pulse Ox 99.1 F 88 18 156/91 99 04/29/18 10:40 04/29/18 10:40 04/29/18 10:40 04/29/18 10:40 04/29/18 11:15 - Physical Exam Comments: 04/29/18 13:00 GENERAL: Cachetic female with open eyes, nonverbal (at baseline), nonresponsive HEAD: No signs of trauma EYES: PERRLA, sclera anicteric, conjunctiva clear ENT: Auricles normal inspection, hearing grossly normal, nares patent, oropharynx clear without exudates. Moist mucosa NECK: Contractures limiting neck movement LUNGS: Abnormally shaped chest wall, poor air movement, limited exam HEART: Regular rate and rhythm, normal S1 and S2, no murmurs, rubs or gallops, peripheral pulses normal and equal bilaterally. ABDOMEN: Soft, nontender, normoactive bowel sounds. No guarding, no rebound. No masses EXTREMITIES: Contracted, no edema NEUROLOGICAL: Unable to fully assess given patient's mental status, no facial droop, multiple contractures SKIN: Warm, Dry, normal turgor, no rashes or lesions noted. Moderate Sedation - Procedure Monitoring Vital Signs: Procedure Monitoring Vital Signs Temperature 99.1 F 04/29/18 10:40 Pulse Rate 88 04/29/18 10:40 Respiratory Rate 18 04/29/18 10:40 Blood Pressure 156/91 04/29/18 10:40 O2 Sat by Pulse Oximetry (%) 99 04/29/18 11:15 ED Treatment Course - LABORATORY CBC & Chemistry Diagram: 05/01/18 05:30 05/01/18 05:30 - RADIOLOGY Radiology Studies Ordered: Category Date Time Status CHEST X-RAY PORTABLE* [RAD] Stat Radiology 04/29/18 11:51 Completed Medical Decision Making - Medical Decision Making 04/29/18 13:02 Patient is 67F with history of copd, aspiration pneumonia, anoxic brain injury here today with hypoxia. Vitals normal here. DDx includes, but is not limited to : aspiration, copd ex, pneumonia, positional hypoxia. Will treat as COPD exacerbation. Afebrile rectally, will hold further abx at this time. Will likely obs. CXR limited, but shows no acute infiltrate. CBC shows leukocytosis. CMP reassuring, no gap. Trop neg. Will cover empirically, obs. *DC/Admit/Observation/Transfer Diagnosis at time of Disposition: COPD exacerbation - Discharge Dispostion Condition at time of disposition: Stable Decision to Admit order: Yes - Referrals - Patient Instructions - Post Discharge Activity
[2018-04-29 13:10] LABS: INR 1.02 (0.83-1.09)
[2018-04-29] MEDS ORDERED: methylPREDNISolone NA SUCC 125 MG/2 ML VIAL ONE ×2 (13:22→18:09)
[2018-04-29 13:28] LABS: ALBUMIN 2.9 g/dl (3.4-5.0); ALK PHOS 205 U/L (45-117); ANION GAP 6 MMOL/L (8-16); BILIRUBIN,TOTAL 0.2 mg/dL (0.2-1); BLOOD UREA NITROGEN 20 mg/dL (7-18); CALCIUM 8.5 mg/dL (8.5-10.1); CHLORIDE 94 mmol/L (98-107); CO2 34 mmol/L (21-32); CREATININE 0.4 mg/dL (0.55-1.3); GLUCOSE,RANDOM 135 mg/dL (74-106); MAGNESIUM 2.3 mg/dL (1.8-2.4); POTASSIUM 3.9 mmol/L (3.5-5.1); SGOT/AST 21 U/L (15-37); SGPT/ALT 33 U/L (13-61); SODIUM 134 mmol/L (136-145); TOT PROT 7.3 g/dl (6.4-8.2)
[2018-04-29] MEDS ORDERED: CEFTRIAXONE 1,000 MG in DEXTROSE 5%-WATER - 50 ML IVPB ONE (14:30)
[2018-04-29] MEDS ORDERED: AZITHROMYCIN IVPB 500 MG in DEXTROSE 5%-WATER - 250 ML IVPB ONE (14:31)
[2018-04-29 14:43] LABS: ANISOCYTOSIS 0; HELMET CELLS 0; HOWELL-JOLLY BODIES 0; MACROCYTOSIS 0; OVALOCYTE 0; PLATELET ESTIMATE NORMAL; ROULEAU 0; SICKELED CELLS 0; TARGET CELLS 0; TEAR DROP CELLS 0; TOXIC GRANULATION 0
[2018-04-29] MEDS ORDERED: AZITHROMYCIN IVPB 500 MG/250 ML BAG IVPB ONE (15:21)
[2018-04-29] MEDS ORDERED: CEFTRIAXONE 1 GM/50 ML BAG ONE (15:21)
--- NOTE | 2018-04-29 17:13 | HP ---
Admitting History and Physical - Primary Care Physician PCP: Stas Tamayo - Admission History of Present Illness: 67F with history of anoxic brain injury, recent admission for aspiration PNA (d/ c 04/26 on augmentin), COPD here today after being found to have an spo2 of 80% and tachypneic at her intermediate. Patient is unable to provide history given neuro injury. EMS reports that patient was at 88% when they got there, which is her baseline. No fevers or episodes of vomiting were noted. - Past Medical History REC THERAPIST: Yes: Other (ANOXIC BRAIN INJURY) - Smoking History Smoking history: Never smoked Have you smoked in the past 12 months: No - Alcohol/Substance Use Hx Alcohol Use: No Home Medications - Allergies Allergies/Adverse Reactions: Allergies Allergy/AdvReac Type Severity Reaction Status Date / Time No Known Allergies Allergy Verified 04/29/18 11:14 - Home Medications Home Medications: Ambulatory Orders Alendronate Sodium [Binosto] 70 mg GT WEEKLY 04/22/18 Amlodipine Besylate 2.5 mg GT DAILY 04/22/18 Ascorbic Acid 500 mg GT BID 04/22/18 Budesonide 1 mg IH BID 04/22/18 Lactulose 30 ml GT DAILY 04/22/18 Metoclopramide HCl 5 mg GT QID 04/22/18 Metoprolol Tartrate [Lopressor -] 50 mg GT BID 04/22/18 Omeprazole 20 mg GT DAILY 04/22/18 Simvastatin 40 mg GT DAILY 04/22/18 Topiramate 1 tab GT DAILY 04/22/18 Valproic Acid (As Sodium Salt) [Valproic Acid] 750 mg GT Q12H 04/22/18 Albuterol 2.5/Ipratropium 0.5 [Duoneb -] 1 neb IH QID 04/29/18 Arformoterol Tartrate [Brovana] 15 mcg IH BID 04/29/18 Budesonide [Pulmicort 0.25 mg -] 1 neb PO BID 04/29/18 Calcium Carbonate/Vitamin D3 [Oyster Shell 500-Vit D3 200 Tb] 2 tab GT HS Multivitamin/Iron/Folic Acid [Centrum Adults Tablet] 15 ml GT DAILY 04/29/18 Olopatadine HCl [Pataday] 2.5 ml OU DAILY 04/29/18 Phenobarbital 32.4 mg GT BID 04/29/18 Protein Supplement [Promod] 30 ml GT DAILY 04/29/18 Topiramate 200 mg GT BID 04/29/18 levETIRAcetam [Keppra -] 1,500 mg GT BID 04/29/18 Physical Examination Vital Signs: Vital Signs Temperature 99.1 F 04/29/18 10:40 Pulse Rate 108 H 04/29/18 15:39 Respiratory Rate 30 H 04/29/18 15:39 Blood Pressure 138/61 04/29/18 15:39 O2 Sat by Pulse Oximetry (%) 97 04/29/18 15:39 Constitutional: Yes: Calm HENT: Yes: Atraumatic Neck: Yes: Supple Cardiovascular: Yes: Regular Rate and Rhythm Respiratory: Yes: Rhonchi Gastrointestinal: Yes: Normal Bowel Sounds Extremities: Yes: Deformity Edema: No Peripheral Pulses WNL: Yes Neurological: Yes: Alert Labs: CBC, BMP 04/29/18 12:43 04/29/18 12:43 Imaging - Results X-ray: Report Reviewed Problem List - Problems (1) COPD exacerbation Assessment/Plan: iv steroids duo nebs pulmonary eval Code(s): J44.1 - CHRONIC OBSTRUCTIVE PULMONARY DISEASE W (ACUTE) EXACERBATION (2) Acute respiratory failure with hypoxia Code(s): J96.01 - ACUTE RESPIRATORY FAILURE WITH HYPOXIA (3) Anoxic brain damage Code(s): G93.1 - ANOXIC BRAIN DAMAGE, NOT ELSEWHERE CLASSIFIED (4) Functional quadriplegia Code(s): R53.2 - FUNCTIONAL QUADRIPLEGIA (5) HLD (hyperlipidemia) Assessment/Plan: on meds Code(s): E78.5 - HYPERLIPIDEMIA, UNSPECIFIED (6) HTN (hypertension) Assessment/Plan: on meds monitor bp Code(s): I10 - ESSENTIAL (PRIMARY) HYPERTENSION (7) Scoliosis deformity of spine Code(s): M41.9 - SCOLIOSIS, UNSPECIFIED (8) Seizure disorder Assessment/Plan: continue home meds Code(s): G40.909 - EPILEPSY, UNSP, NOT INTRACTABLE, WITHOUT STATUS EPILEPTICUS (9) Pneumonia Assessment/Plan: possible aspiration on abx id consult Code(s): J18.9 - PNEUMONIA, UNSPECIFIED ORGANISM Assessment/Plan Laboratory Tests 04/29/18 04/29/18 04/29/18 12:43 12:43 12:43 WBC 16.3 H RBC 4.65 Hgb 14.5 Hct 43.1 MCV 92.6 MCH 31.1 MCHC 33.6 RDW 12.8 Plt Count 264 MPV 7.9 Absolute Neuts (auto) 15.0 H Neutrophils % 92.1 H Neutrophils % (Manual) 90.9 H Band Neutrophils % 3.0 Lymphocytes % 5.6 L D Lymphocytes % (Manual) 4.1 L Monocytes % 1.5 L D Monocytes % (Manual) 0 L Eosinophils % 0.4 D Eosinophils % (Manual) 1.0 Basophils % 0.4 D Basophils % (Manual) 0.0 Myelocytes % (Man) 0 Promyelocytes % (Man) 0 Blast Cells % (Manual) 0 Nucleated RBC % 0 Metamyelocytes 0 Hypochromia 0 Toxic Granulation 0 Dohle Bodies 0 Platelet Estimate Normal Polychromasia 0 Poikilocytosis 0 Basophilic Stippling 0 Anisocytosis 0 Microcytosis 0 Macrocytosis 0 Spherocytes 0 Sickle Cells 0 Target Cells 0 Tear Drop Cells 0 Ovalocytes 0 Stomatocytes 0 Helmet Cells 0 [place] Bodies 0 [place] Rings 0 Treva Cells 0 Acanthocytes (Spur) 0 Rouleaux 0 Fragmented RBCs 0 Schistocytes 0 PT with INR 12.00 INR 1.02 Sodium 134 L Potassium 3.9 Chloride 94 L Carbon Dioxide 34 H Anion Gap 6 L BUN 20 H Creatinine 0.4 L Creat Clearance w eGFR > 60 Random Glucose 135 H Calcium 8.5 Magnesium 2.3 Total Bilirubin 0.2 AST 21 ALT 33 Alkaline Phosphatase 205 H Creatine Kinase 38 Troponin I < 0.02 Total Protein 7.3 Albumin 2.9 L Active Medications Generic Name Dose Route Start Last Admin Trade Name Freq PRN Reason Stop Dose Admin Acetaminophen 650 mg 04/29/18 17:23 Tylenol - PO Q6H PRN FEVER Albuterol/Ipratropium amp 04/29/18 18:00 Duoneb - NEB QID [facility] Amlodipine Besylate 2.5 mg 04/30/18 10:00 Norvasc - GT DAILY [facility] Arformoterol Tartrate amp 04/29/18 22:00 Brovana (Restricted To Pulmonology/Resp) - NEB BID [facility] Ascorbic Acid 500 mg 04/29/18 22:00 Vitamin C - GT BID [facility] Budesonide amp 04/29/18 22:00 Pulmicort 0.25 Mg Nebulizer - NEB BID [facility] Calcium Carbonate/Cholecalciferol 2 tab 04/29/18 22:00 Os-Jamar 500+D - GT HS [facility] Heparin Sodium (Porcine) 5,000 unit 04/29/18 22:00 Heparin - SQ BID [facility] Levetiracetam 1,500 mg 04/29/18 22:00 Keppra - PO BID [facility] Methylprednisolone Sodium Succinate 60 mg 04/29/18 18:00 Solu-Medrol - IVPUSH Q8H-IV [facility] Metoprolol Tartrate 50 mg 04/29/18 22:00 Lopressor - GT BID [facility] Non-Formulary Medication 70 mg 04/29/18 17:15 Alendronate Sodium [Binosto] GT WEEKLY [facility] Non-Formulary Medication 1 mg 04/29/18 22:00 Budesonide [Budesonide] IH BID [facility] Non-Formulary Medication 30 ml 04/30/18 10:00 Lactulose [Lactulose] GT DAILY [facility] Non-Formulary Medication 5 mg 04/29/18 18:00 Metoclopramide Hcl [Metoclopramide Hcl] GT QID [facility] Non-Formulary Medication 2.5 ml 04/30/18 10:00 Olopatadine Hcl [Pataday] OU DAILY [facility] Non-Formulary Medication 20 mg 04/30/18 10:00 Omeprazole GT DAILY [facility] Non-Formulary Medication 30 ml 04/29/18 17:30 Protein Supplement [Promod] GT DAILY [facility] Non-Formulary Medication 40 mg 04/30/18 10:00 Simvastatin [Simvastatin] GT DAILY [facility] Phenobarbital 32.4 mg 04/29/18 22:00 Phenobarbital - GT BID [facility] Topiramate mg 04/30/18 10:00 Topamax - PO DAILY [facility] Topiramate 200 mg 04/29/18 22:00 Topamax - GT BID [facility] Valproate Sodium 750 mg 04/29/18 17:15 Depakene - GT Q12H [facility]
[2018-04-29] MEDS ORDERED: PATIENT'S OWN MEDICATION (NON-FORMULARY) (Alendronate Sodium [Binosto] 70 MG) GT SCH (17:15)
[2018-04-29] MEDS ORDERED: ACETAMINOPHEN 325 MG TABLET (FP) PO PRN (17:23)
--- NOTE | 2018-04-29 17:27 | PDOC ---
Attending Attestation - Resident Resident Name: Joel Colón - ED Attending Attestation I have performed the following: I have examined & evaluated the patient, The case was reviewed & discussed with the resident, I agree w/resident's findings & plan, Exceptions are as noted - HPI HPI: 04/29/18 17:24 67 yo F h/o anoxic brain injury, aspiration pna, peg tube. here from nursing facility for hypoxia. pt has had increased work of breathing. cough. all things through the peg tube. no f/c pulse ox in 80's - Physicial Exam PE: 04/29/18 17:25 pt nonresponsive. tongue dry. crackles and course breath sounds bilaterally abd soft, peg in place. ext cachectic contracted. thin. nuero nonverbal nonresponsive. - Medical Decision Making 04/29/18 17:26 plan differential sepsis, pna, bronchospasm, aspriation uti electorltye abnormality. deborah cxr lab ekg duonebs. will likely require admission. cxr difficulty views due to body habitus, . no obvious infiltrate. given nebs. will cover for infection. admit.
[2018-04-29] MEDS ORDERED: PROTEIN SUPPLEMENT GT SCH (17:30)
[2018-04-29] MEDS: METOCLOPRAMIDE HCL 5 MG/5 ML UNIT DOSE CUP GT SCH ×2 (18:08→23:45)
[2018-04-29] MEDS: methylPREDNISolone NA SUCC 40 MG/1 ML VIAL IVPUSH SCH (18:12)
--- NOTE | 2018-04-29 20:21 | EKG ---
Test Reason : Blood Pressure : / mmHG Vent. Rate : 093 BPM Atrial Rate : 093 BPM P-R Int : 118 ms QRS Dur : 060 ms QT Int : 342 ms P-R-T Axes : 060 069 045 degrees QTc Int : 425 ms NORMAL SINUS RHYTHM NORMAL ECG WHEN COMPARED WITH ECG OF 21-APR-2018 23:25, NO SIGNIFICANT CHANGE WAS FOUND Confirmed by DARÍO GARCIA MD ([id number]) on 04/29/2018 8:21:36 PM Referred By: Confirmed By:DARÍO GARCIA MD
[2018-04-29] MEDS: ALBUTEROL SO4 2.5/IPRATROPIUM 0.5 INH SOL 3 ML VIAL.NEB. NEB SCH (20:23)
[2018-04-29] MEDS ORDERED: BUDESONIDE 1 MG IH SCH (22:00)
[2018-04-29] MEDS: levETIRAcetam 500 MG TABLET (FP) PO SCH (23:45)
[2018-04-29] MEDS: PHENobarbital 30 MG TABLET GT SCH (23:45)
[2018-04-29] MEDS: ATORVASTATIN CA 20 MG TABLET (FP) PO SCH (23:45)
[2018-04-29] MEDS: CALCIUM 500MG/VIT-D 200 UNITS COMBO TABLET (FP) GT SCH (23:45)
[2018-04-29] MEDS: ARFORMOTEROL TARTRATE 15 MCG/2 ML VIAL NEB SCH (23:45)
[2018-04-29] MEDS: TOPIRAMATE 200 MG TABLET (FP) GT SCH (23:45)
[2018-04-29] MEDS: BUDESONIDE 0.25 MG/2ML INH SUSP VIAL NEB SCH (23:45)
[2018-04-29] MEDS: VALPROATE SODIUM 250 MG/5 ML UNIT DOSE CUP GT SCH (23:45)
[2018-04-29] MEDS: HEPARIN NA (PORCINE) 5,000 UNITS/ML 1ML VIAL SQ SCH (23:45)
[2018-04-29] MEDS: ASCORBIC ACID 500 MG TABLET (FP) GT SCH (23:45)
[2018-04-29] MEDS: METOPROLOL TARTRATE 50 MG TABLET (FP) GT SCH (23:45)
[2018-04-30] MEDS ORDERED: methylPREDNISolone NA SUCC 125 MG/2 ML VIAL ONE (02:01)
[2018-04-30] MEDS: methylPREDNISolone NA SUCC 40 MG/1 ML VIAL IVPUSH SCH ×3 (02:09→18:30)
[2018-04-30] MEDS: ALBUTEROL SO4 2.5/IPRATROPIUM 0.5 INH SOL 3 ML VIAL.NEB. NEB SCH ×2 (07:35→11:53)
[2018-04-30] MEDS: ARFORMOTEROL TARTRATE 15 MCG/2 ML VIAL NEB SCH ×2 (09:50→21:05)
[2018-04-30] MEDS ORDERED: TOPIRAMATE 25 MG TABLET (FP) PO SCH (10:00)
[2018-04-30] MEDS ORDERED: PATIENT'S OWN MEDICATION (NON-FORMULARY) (Olopatadine Hcl [Pataday] 2.5 ML) OU SCH (10:00)
[2018-04-30] MEDS: LACTULOSE 20 GM/30 ML UDC (FOR ORAL USE ONLY) GT SCH (10:49)
[2018-04-30] MEDS: HEPARIN NA (PORCINE) 5,000 UNITS/ML 1ML VIAL SQ SCH (10:49)
[2018-04-30] MEDS: levETIRAcetam 500 MG TABLET (FP) PO SCH (10:50)
[2018-04-30] MEDS: amLODIPine BESYLATE 2.5 MG TABLET (FP) GT SCH (10:50)
[2018-04-30] MEDS: PHENobarbital 30 MG TABLET GT SCH (10:50)
[2018-04-30] MEDS: METOPROLOL TARTRATE 50 MG TABLET (FP) GT SCH (10:50)
[2018-04-30] MEDS: ASCORBIC ACID 500 MG TABLET (FP) GT SCH (10:50)
[2018-04-30] MEDS: PANTOPRAZOLE 20 MG TABLET (FP) PO SCH (10:50)
[2018-04-30] MEDS: METOCLOPRAMIDE HCL 5 MG/5 ML UNIT DOSE CUP GT SCH ×3 (11:45→18:30)
[2018-04-30] MEDS: VALPROATE SODIUM 250 MG/5 ML UNIT DOSE CUP GT SCH ×2 (11:45→13:47)
[2018-04-30] MEDS: TOPIRAMATE 200 MG TABLET (FP) GT SCH ×2 (11:45→13:47)
[2018-04-30] MEDS: BUDESONIDE 0.25 MG/2ML INH SUSP VIAL NEB SCH ×2 (11:58→21:05)
--- NOTE | 2018-04-30 13:59 | CON.ID ---
Consult Consult Specialty:: infectious diseases - Past Medical History MANAGER ROOM: Yes: Other (ANOXIC BRAIN INJURY) ...: No - Alcohol/Substance Use Hx Alcohol Use: No - Smoking History Smoking history: Never smoked Have you smoked in the past 12 months: No Home Medications - Allergies Allergies/Adverse Reactions: Allergies Allergy/AdvReac Type Severity Reaction Status Date / Time No Known Allergies Allergy Verified 04/29/18 11:14 - Home Medications Home Medications: Ambulatory Orders Alendronate Sodium [Binosto] 70 mg GT WEEKLY 04/22/18 Amlodipine Besylate 2.5 mg GT DAILY 04/22/18 Ascorbic Acid 500 mg GT BID 04/22/18 Budesonide 1 mg IH BID 04/22/18 Lactulose 30 ml GT DAILY 04/22/18 Metoclopramide HCl 5 mg GT QID 04/22/18 Metoprolol Tartrate [Lopressor -] 50 mg GT BID 04/22/18 Omeprazole 20 mg GT DAILY 04/22/18 Simvastatin 40 mg GT DAILY 04/22/18 Topiramate 1 tab GT DAILY 04/22/18 Valproic Acid (As Sodium Salt) [Valproic Acid] 750 mg GT Q12H 04/22/18 Albuterol 2.5/Ipratropium 0.5 [Duoneb -] 1 neb IH QID 04/29/18 Arformoterol Tartrate [Brovana] 15 mcg IH BID 04/29/18 Budesonide [Pulmicort 0.25 mg -] 1 neb PO BID 04/29/18 Calcium Carbonate/Vitamin D3 [Oyster Shell 500-Vit D3 200 Tb] 2 tab GT HS Multivitamin/Iron/Folic Acid [Centrum Adults Tablet] 15 ml GT DAILY 04/29/18 Olopatadine HCl [Pataday] 2.5 ml OU DAILY 04/29/18 Phenobarbital 32.4 mg GT BID 04/29/18 Protein Supplement [Promod] 30 ml GT DAILY 04/29/18 Topiramate 200 mg GT BID 04/29/18 levETIRAcetam [Keppra -] 1,500 mg GT BID 04/29/18 Physical Exam Vital Signs: Vital Signs Temperature 98 F 04/30/18 03:05 Pulse Rate 82 04/30/18 03:05 Respiratory Rate 18 04/30/18 08:13 Blood Pressure 150/75 04/30/18 03:05 O2 Sat by Pulse Oximetry (%) 99 04/30/18 08:13 Labs: CBC, BMP 04/29/18 12:43 04/29/18 12:43
--- NOTE | 2018-04-30 14:09 | PN ---
Progress Note (short form) - Note Progress Note: PULMONARY CONSULTATION DICTATED 04/23/18 IMP ACUTE HYPOXEMIC RESPIRATORY FAILURE ? ASPIRATION COPD EXACERBATION ANOXIC BRAIN INJURY QUADRAPLEGIA PLAN INHALED BRONCHODILATORS O2 ABG SOLUMEDROL ABX PER ID F/U CHEST X-RAY DR SUAREZ Problem List - Problems (1) COPD exacerbation Code(s): J44.1 - CHRONIC OBSTRUCTIVE PULMONARY DISEASE W (ACUTE) EXACERBATION (2) Acute respiratory failure with hypoxia Code(s): J96.01 - ACUTE RESPIRATORY FAILURE WITH HYPOXIA (3) Anoxic brain damage Code(s): G93.1 - ANOXIC BRAIN DAMAGE, NOT ELSEWHERE CLASSIFIED (4) HLD (hyperlipidemia) Code(s): E78.5 - HYPERLIPIDEMIA, UNSPECIFIED (5) HTN (hypertension) Code(s): I10 - ESSENTIAL (PRIMARY) HYPERTENSION (6) Seizure disorder Code(s): G40.909 - EPILEPSY, UNSP, NOT INTRACTABLE, WITHOUT STATUS EPILEPTICUS
[2018-04-30] MEDS ORDERED: ALBUTEROL SO4 2.5/IPRATROPIUM 0.5 INH SOL 3 ML VIAL.NEB. NEB PRN (14:21)
--- NOTE | 2018-04-30 15:37 | CONS ---
DATE OF CONSULTATION: 04/30/2018 PULMONARY CONSULTATION REFERRING PHYSICIAN: Stas Tamayo MD History is obtained from medical chart. Patient is a 67-year-old white female with past medical history of anoxic brain injury, quadriplegia, COPD O2-dependent, left arm fracture, resident at [facility] and transferred to [facility] on April 29 secondary to hypoxemia. Patient was recently hospitalized at [facility] a few days prior to this admission secondary to aspiration pneumonia. She was discharged home in stable condition. At the correction, last night, on the day of admission, she was noted to be tachypneic and O2 saturations in the 80s. EMS was called. When they arrived there, apparently, her O2 saturations were 80%, which are baseline. She presented to the emergency room with the above. In the ER, she had a chest x-ray performed which showed no acute infiltrate. She was admitted to the floor for further management. On admission, she was started on Solu-Medrol, inhaled bronchodilators, and antibiotic therapy. PAST MEDICAL HISTORY: Again includes cerebral anoxic brain injury, quadriplegia, COPD on O2, recent aspiration pneumonia. REVIEW OF SYSTEMS: Unable to obtain. CURRENT MEDICATIONS: Include Pataday, Pulmicort, nebulizers, Solu-Medrol 60 q.8, lactulose, ____, ceftriaxone, heparin, Keppra, Topamax, Depakene, phenobarbital, DuoNeb, Brovana, Lopressor, Lipitor, Reglan, Protonix, cholecalciferol. PHYSICAL EXAMINATION: General: Patient is a thin female, well developed, drowsy, in no acute respiratory distress. Vital Signs: She is afebrile, blood pressure is 150/75, respiratory rate is 22, and O2 saturation is 99% on 3.5 L. HEENT: Exam is normocephalic, atraumatic. Neck: Supple. Heart: Regular, S1, S2. Chest: Diminished breath sounds bilaterally. Poor inspiratory effort. Abdomen: Soft. Bowel sounds positive. Extremities: Lower extremities are contracted and shortened. LABORATORIES: WBC is 16.3, hemoglobin 14.5, hematocrit 43.1, platelet count of 264,000, there are 90 polys, 3 lymphs, and 5 monos. Blood gas from prior admission with pH 7.38, PCO2 is 67, PO2 of 119, bicarbonate is 38, saturation of 98. Chemistry: BUN 20, creatinine 0.4. Chest x-ray no acute infiltrates or effusions. IMPRESSION: Acute on chronic hypoxemic respiratory failure secondary to: 1. Likely chronic obstructive pulmonary disease exacerbation. 2. Possible aspiration pneumonia. 3. Anoxic brain injury. 4. Quadriplegia. PLAN: Inhaled bronchodilators. Supplemental O2. Arterial blood gas. IV steroids. Followup chest x-ray. Antibiotic therapy as per Infectious Disease. Aspiration precautions. BAILEE SUAREZ M.D. [id number]
[2018-04-30] MEDS ORDERED: cefTRIAXone SODIUM 1 GM VIAL ONE (16:27)
[2018-04-30] MEDS ORDERED: DEXTROSE 5%-WATER - 50 ML IVPB ONE (16:27)
[2018-04-30] MEDS: CEFTRIAXONE 1 GM in DEXTROSE 5%-WATER - 50 ML IVPB SCH (16:35)
--- NOTE | 2018-04-30 17:11 | PN ---
Progress Note, Physician History of Present Illness: stable - Current Medication List Current Medications: Active Medications Acetaminophen (Tylenol -) 650 mg PO Q6H PRN PRN Reason: FEVER Albuterol/Ipratropium (Duoneb -) 1 amp NEB Q4H PRN PRN Reason: SHORTNESS OF BREATH Amlodipine Besylate (Norvasc -) 2.5 mg GT DAILY [facility] Last Admin: 04/30/18 10:50 Dose: 2.5 mg Arformoterol Tartrate (Brovana (Restricted To Pulmonology/Resp) -) 1 amp NEB BID [facility] Last Admin: 04/30/18 09:50 Dose: 1 amp Ascorbic Acid (Vitamin C -) 500 mg GT BID [facility] Last Admin: 04/30/18 10:50 Dose: 500 mg Atorvastatin Calcium (Lipitor -) 20 mg PO HS [facility] Last Admin: 04/29/18 23:45 Dose: 20 mg Budesonide (Pulmicort 0.25 Mg Nebulizer -) 1 amp NEB BID [facility] Last Admin: 04/30/18 11:58 Dose: Not Given Calcium Carbonate/Cholecalciferol (Os-Jamar 500+D -) 2 tab GT HS [facility] Last Admin: 04/29/18 23:45 Dose: 2 tab Heparin Sodium (Porcine) (Heparin -) 5,000 unit SQ BID [facility] Last Admin: 04/30/18 10:49 Dose: 5,000 unit Ceftriaxone Sodium 1 gm/ (Dextrose) 50 mls @ 100 mls/hr IVPB DAILY [facility]; Protocol Last Admin: 04/30/18 16:35 Dose: 100 mls/hr Lactulose (Cephulac (Oral Use)) 30 gm GT DAILY [facility] Last Admin: 04/30/18 10:49 Dose: 30 gm Levetiracetam (Keppra -) 1,500 mg PO BID [facility] Last Admin: 04/30/18 10:50 Dose: 1,500 mg Methylprednisolone Sodium Succinate (Solu-Medrol -) 60 mg IVPUSH Q8H-IV [facility] Last Admin: 04/30/18 10:50 Dose: 60 mg Metoclopramide HCl (Reglan Oral Solution -) 5 mg GT QID [facility] Last Admin: 04/30/18 13:47 Dose: 5 mg Metoprolol Tartrate (Lopressor -) 50 mg GT BID [facility] Last Admin: 04/30/18 10:50 Dose: 50 mg Non-Formulary Medication (Olopatadine Hcl [Pataday]) 2.5 ml OU DAILY [facility] Non-Formulary Medication (Protein Supplement [Promod]) 30 ml GT DAILY [facility] Last Admin: 04/29/18 18:04 Dose: Not Given Pantoprazole Sodium (Protonix -) 20 mg PO DAILY [facility] Last Admin: 04/30/18 10:50 Dose: 20 mg Phenobarbital (Phenobarbital -) 30 mg GT BID [facility] Last Admin: 04/30/18 10:50 Dose: 30 mg Topiramate (Topamax -) 200 mg GT BID [facility] Last Admin: 04/30/18 13:47 Dose: 200 mg Valproate Sodium (Depakene -) 750 mg GT BID [facility] Last Admin: 04/30/18 13:47 Dose: 750 mg - Objective Vital Signs: Vital Signs Temperature 98.4 F 04/30/18 14:25 Pulse Rate 72 04/30/18 14:25 Respiratory Rate 22 H 04/30/18 14:25 Blood Pressure 136/73 04/30/18 14:25 O2 Sat by Pulse Oximetry (%) 99 04/30/18 08:13 Constitutional: Yes: Calm HENT: Yes: Atraumatic Neck: Yes: Supple Cardiovascular: Yes: Regular Rate and Rhythm Respiratory: Yes: Rhonchi Gastrointestinal: Yes: Normal Bowel Sounds Extremities: Yes: WNL, Deformity Edema: No Peripheral Pulses WNL: Yes Neurological: Yes: Alert Labs: CBC, BMP 04/29/18 12:43 04/29/18 12:43 INR, PTT INR 1.02 (0.83-1.09) 04/29/18 12:43 Problem List - Problems (1) COPD exacerbation Assessment/Plan: iv steroids duo nebs pulmonary eval Code(s): J44.1 - CHRONIC OBSTRUCTIVE PULMONARY DISEASE W (ACUTE) EXACERBATION (2) Acute respiratory failure with hypoxia Code(s): J96.01 - ACUTE RESPIRATORY FAILURE WITH HYPOXIA (3) Anoxic brain damage Code(s): G93.1 - ANOXIC BRAIN DAMAGE, NOT ELSEWHERE CLASSIFIED (4) Functional quadriplegia Code(s): R53.2 - FUNCTIONAL QUADRIPLEGIA (5) HLD (hyperlipidemia) Assessment/Plan: on meds Code(s): E78.5 - HYPERLIPIDEMIA, UNSPECIFIED (6) HTN (hypertension) Assessment/Plan: on meds monitor bp Code(s): I10 - ESSENTIAL (PRIMARY) HYPERTENSION (7) Scoliosis deformity of spine Code(s): M41.9 - SCOLIOSIS, UNSPECIFIED (8) Seizure disorder Assessment/Plan: continue home meds Code(s): G40.909 - EPILEPSY, UNSP, NOT INTRACTABLE, WITHOUT STATUS EPILEPTICUS (9) Pneumonia Assessment/Plan: possible aspiration on abx id consult Code(s): J18.9 - PNEUMONIA, UNSPECIFIED ORGANISM
[2018-04-30] MEDS ORDERED: PT OWN MED DRAWER 7, Y5N ONE (22:12)
[2018-05-01] MEDS: HEPARIN NA (PORCINE) 5,000 UNITS/ML 1ML VIAL SQ SCH ×3 (00:06→22:35)
[2018-05-01] MEDS: ASCORBIC ACID 500 MG TABLET (FP) GT SCH ×3 (00:07→22:36)
[2018-05-01] MEDS: levETIRAcetam 500 MG TABLET (FP) PO SCH ×3 (00:07→22:35)
[2018-05-01] MEDS: PHENobarbital 30 MG TABLET GT SCH ×3 (00:07→22:35)
[2018-05-01] MEDS: CALCIUM 500MG/VIT-D 200 UNITS COMBO TABLET (FP) GT SCH ×2 (00:07→22:35)
[2018-05-01] MEDS: METOCLOPRAMIDE HCL 5 MG/5 ML UNIT DOSE CUP GT SCH ×5 (00:08→22:36)
[2018-05-01] MEDS: TOPIRAMATE 200 MG TABLET (FP) GT SCH ×3 (00:08→22:36)
[2018-05-01] MEDS: ATORVASTATIN CA 20 MG TABLET (FP) PO SCH ×2 (00:08→22:35)
[2018-05-01] MEDS: METOPROLOL TARTRATE 50 MG TABLET (FP) GT SCH ×3 (00:08→22:35)
[2018-05-01] MEDS: VALPROATE SODIUM 250 MG/5 ML UNIT DOSE CUP GT SCH ×3 (00:08→22:35)
[2018-05-01] MEDS: methylPREDNISolone NA SUCC 40 MG/1 ML VIAL IVPUSH SCH ×3 (02:05→18:05)
[2018-05-01 06:34] LABS: BASO % 0.1 % (0-2.0); EOS % 0.1 % (0-4.5); HEMATOCRIT 39.9 % (32.4-45.2); HEMOGLOBIN 13.7 GM/dL (10.7-15.3); LYMPH % 4.2 % (8-40); MCH 31.6 pg (25.7-33.7); MCHC 34.3 g/dl (32.0-36.0); MEAN CELL VOLUME 92.1 fl (80-96); MEAN PLT VOLUME 8.1 fl (7.5-11.1); MONO % 2.9 % (3.8-10.2); NEUT % 92.7 % (42.8-82.8); PLATELET COUNT 287 K/MM3 (134-434); RBC 4.34 M/mm3 (3.60-5.2); RDW 12.8 % (11.6-15.6); WHITE BLOOD COUNT 19.8 K/mm3 (4.0-10.0)
[2018-05-01 07:02] LABS: ALBUMIN 2.6 g/dl (3.4-5.0); ALK PHOS 150 U/L (45-117); ANION GAP 7 MMOL/L (8-16); BILIRUBIN,TOTAL < 0.1 mg/dL (0.2-1); BLOOD UREA NITROGEN 18 mg/dL (7-18); CALCIUM 8.4 mg/dL (8.5-10.1); CHLORIDE 96 mmol/L (98-107); CO2 34 mmol/L (21-32); CREATININE 0.3 mg/dL (0.55-1.3); GLUCOSE,RANDOM 133 mg/dL (74-106); POTASSIUM 3.4 mmol/L (3.5-5.1); SGOT/AST 23 U/L (15-37); SGPT/ALT 32 U/L (13-61); SODIUM 136 mmol/L (136-145); TOT PROT 6.5 g/dl (6.4-8.2)
[2018-05-01] MEDS: ARFORMOTEROL TARTRATE 15 MCG/2 ML VIAL NEB SCH ×2 (09:00→21:28)
[2018-05-01] MEDS: BUDESONIDE 0.25 MG/2ML INH SUSP VIAL NEB SCH ×2 (09:01→23:19)
[2018-05-01] MEDS ORDERED: PT OWN MED DRAWER 7, Y5N ONE ×2 (09:35→13:05)
[2018-05-01] MEDS ORDERED: cefTRIAXone SODIUM 1 GM VIAL ONE (09:35)
[2018-05-01] MEDS ORDERED: DEXTROSE 5%-WATER - 50 ML IVPB ONE (09:35)
[2018-05-01 10:17] LABS: ANISOCYTOSIS 0; HELMET CELLS 0; HOWELL-JOLLY BODIES 0; MACROCYTOSIS 0; OVALOCYTE 0; PLATELET ESTIMATE NORMAL; ROULEAU 0; SICKELED CELLS 0; TARGET CELLS 0; TEAR DROP CELLS 0; TOXIC GRANULATION 0
[2018-05-01] MEDS: CEFTRIAXONE 1 GM in DEXTROSE 5%-WATER - 50 ML IVPB SCH (10:45)
[2018-05-01] MEDS: LACTULOSE 20 GM/30 ML UDC (FOR ORAL USE ONLY) GT SCH (10:46)
[2018-05-01] MEDS: amLODIPine BESYLATE 2.5 MG TABLET (FP) GT SCH (10:47)
[2018-05-01] MEDS: PANTOPRAZOLE 20 MG TABLET (FP) PO SCH (10:48)
--- NOTE | 2018-05-01 12:15 | PN ---
Progress Note, Physician History of Present Illness: PULMONARY AWAKE,-RESP DISTRESS,LESS CONGESTION - Current Medication List Current Medications: Active Medications Acetaminophen (Tylenol -) 650 mg PO Q6H PRN PRN Reason: FEVER Albuterol/Ipratropium (Duoneb -) 1 amp NEB Q4H PRN PRN Reason: SHORTNESS OF BREATH Last Admin: 05/01/18 01:54 Dose: 1 amp Amlodipine Besylate (Norvasc -) 2.5 mg GT DAILY [facility] Last Admin: 05/01/18 10:47 Dose: 2.5 mg Arformoterol Tartrate (Brovana (Restricted To Pulmonology/Resp) -) 1 amp NEB BID [facility] Last Admin: 05/01/18 09:00 Dose: 1 amp Ascorbic Acid (Vitamin C -) 500 mg GT BID [facility] Last Admin: 05/01/18 10:47 Dose: 500 mg Atorvastatin Calcium (Lipitor -) 20 mg PO HS [facility] Last Admin: 05/01/18 00:08 Dose: 20 mg Budesonide (Pulmicort 0.25 Mg Nebulizer -) 1 amp NEB BID [facility] Last Admin: 05/01/18 09:01 Dose: Not Given Calcium Carbonate/Cholecalciferol (Os-Jamra 500+D -) 2 tab GT HS [facility] Last Admin: 05/01/18 00:07 Dose: 2 tab Heparin Sodium (Porcine) (Heparin -) 5,000 unit SQ BID [facility] Last Admin: 05/01/18 10:46 Dose: 5,000 unit Ceftriaxone Sodium 1 gm/ (Dextrose) 50 mls @ 100 mls/hr IVPB DAILY [facility]; Protocol Last Admin: 05/01/18 10:45 Dose: 100 mls/hr Lactulose (Cephulac (Oral Use)) 30 gm GT DAILY [facility] Last Admin: 05/01/18 10:46 Dose: 30 gm Levetiracetam (Keppra -) 1,500 mg PO BID [facility] Last Admin: 05/01/18 10:47 Dose: 1,500 mg Methylprednisolone Sodium Succinate (Solu-Medrol -) 60 mg IVPUSH Q8H-IV [facility] Last Admin: 05/01/18 10:48 Dose: 60 mg Metoclopramide HCl (Reglan Oral Solution -) 5 mg GT QID [facility] Last Admin: 05/01/18 10:48 Dose: 5 mg Metoprolol Tartrate (Lopressor -) 50 mg GT BID [facility] Last Admin: 05/01/18 10:47 Dose: 50 mg Non-Formulary Medication (Olopatadine Hcl [Pataday]) 2.5 ml OU DAILY [facility] Non-Formulary Medication (Protein Supplement [Promod]) 30 ml GT DAILY [facility] Last Admin: 04/29/18 18:04 Dose: Not Given Pantoprazole Sodium (Protonix -) 20 mg PO DAILY [facility] Last Admin: 05/01/18 10:48 Dose: 20 mg Phenobarbital (Phenobarbital -) 30 mg GT BID [facility] Last Admin: 05/01/18 10:47 Dose: 30 mg Topiramate (Topamax -) 200 mg GT BID [facility] Last Admin: 05/01/18 00:08 Dose: 200 mg Valproate Sodium (Depakene -) 750 mg GT BID [facility] Last Admin: 05/01/18 10:44 Dose: 750 mg - Objective Vital Signs: Vital Signs Temperature 98.3 F 05/01/18 10:00 Pulse Rate 95 H 05/01/18 10:00 Respiratory Rate 18 05/01/18 10:00 Blood Pressure 126/77 05/01/18 10:00 O2 Sat by Pulse Oximetry (%) 95 05/01/18 09:00 Constitutional: Yes: Well Nourished, Calm Eyes: Yes: WNL HENT: Yes: WNL Neck: Yes: WNL Cardiovascular: Yes: Regular Rate and Rhythm, S1, S2 Respiratory: Yes: Diminished Gastrointestinal: Yes: Normal Bowel Sounds, Soft Extremities: Yes: Shortened Edema: No Labs: CBC, BMP 05/01/18 05:30 05/01/18 05:30 INR, PTT INR 1.02 (0.83-1.09) 04/29/18 12:43 Problem List - Problems (1) COPD exacerbation Code(s): J44.1 - CHRONIC OBSTRUCTIVE PULMONARY DISEASE W (ACUTE) EXACERBATION (2) Acute respiratory failure with hypoxia Code(s): J96.01 - ACUTE RESPIRATORY FAILURE WITH HYPOXIA (3) Anoxic brain damage Code(s): G93.1 - ANOXIC BRAIN DAMAGE, NOT ELSEWHERE CLASSIFIED (4) HLD (hyperlipidemia) Code(s): E78.5 - HYPERLIPIDEMIA, UNSPECIFIED (5) HTN (hypertension) Code(s): I10 - ESSENTIAL (PRIMARY) HYPERTENSION (6) Seizure disorder Code(s): G40.909 - EPILEPSY, UNSP, NOT INTRACTABLE, WITHOUT STATUS EPILEPTICUS Assessment/Plan IMP ACUTE HYPOXEMIC RESPIRATORY FAILURE IMPROVING ? ASPIRATION COPD EXACERBATION IMPROVING ANOXIC BRAIN INJURY QUADRAPLEGIA PLAN INHALED BRONCHODILATORS O2 MEDROL TAPER ABX PER ID F/U CHEST X-RAY DR SUAREZ Problem List - Problems (1) COPD exacerbation Code(s): J44.1 - CHRONIC OBSTRUCTIVE PULMONARY DISEASE W (ACUTE) EXACERBATION (2) Acute respiratory failure with hypoxia Code(s): J96.01 - ACUTE RESPIRATORY FAILURE WITH HYPOXIA (3) Anoxic brain damage Code(s): G93.1 - ANOXIC BRAIN DAMAGE, NOT ELSEWHERE CLASSIFIED (4) HLD (hyperlipidemia) Code(s): E78.5 - HYPERLIPIDEMIA, UNSPECIFIED (5) HTN (hypertension) Code(s): I10 - ESSENTIAL (PRIMARY) HYPERTENSION (6) Seizure disorder Code(s): G40.909 - EPILEPSY, UNSP, NOT INTRACTABLE, WITHOUT STATUS EPILEPTICUS
--- NOTE | 2018-05-01 14:10 | PN ---
Progress Note, Physician History of Present Illness: calm on face mask minimal cough - Current Medication List Current Medications: Active Medications Acetaminophen (Tylenol -) 650 mg PO Q6H PRN PRN Reason: FEVER Albuterol/Ipratropium (Duoneb -) 1 amp NEB Q4H PRN PRN Reason: SHORTNESS OF BREATH Last Admin: 05/01/18 01:54 Dose: 1 amp Amlodipine Besylate (Norvasc -) 2.5 mg GT DAILY [facility] Last Admin: 05/01/18 10:47 Dose: 2.5 mg Arformoterol Tartrate (Brovana (Restricted To Pulmonology/Resp) -) 1 amp NEB BID [facility] Last Admin: 05/01/18 09:00 Dose: 1 amp Ascorbic Acid (Vitamin C -) 500 mg GT BID [facility] Last Admin: 05/01/18 10:47 Dose: 500 mg Atorvastatin Calcium (Lipitor -) 20 mg PO HS [facility] Last Admin: 05/01/18 00:08 Dose: 20 mg Budesonide (Pulmicort 0.25 Mg Nebulizer -) 1 amp NEB BID [facility] Last Admin: 05/01/18 09:01 Dose: Not Given Calcium Carbonate/Cholecalciferol (Os-Jamar 500+D -) 2 tab GT HS [facility] Last Admin: 05/01/18 00:07 Dose: 2 tab Heparin Sodium (Porcine) (Heparin -) 5,000 unit SQ BID [facility] Last Admin: 05/01/18 10:46 Dose: 5,000 unit Ceftriaxone Sodium 1 gm/ (Dextrose) 50 mls @ 100 mls/hr IVPB DAILY [facility]; Protocol Last Admin: 05/01/18 10:45 Dose: 100 mls/hr Lactulose (Cephulac (Oral Use)) 30 gm GT DAILY [facility] Last Admin: 05/01/18 10:46 Dose: 30 gm Levetiracetam (Keppra -) 1,500 mg PO BID [facility] Last Admin: 05/01/18 10:47 Dose: 1,500 mg Methylprednisolone Sodium Succinate (Solu-Medrol -) 40 mg IVPUSH Q8H-IV [facility] Metoclopramide HCl (Reglan Oral Solution -) 5 mg GT QID [facility] Last Admin: 05/01/18 10:48 Dose: 5 mg Metoprolol Tartrate (Lopressor -) 50 mg GT BID [facility] Last Admin: 05/01/18 10:47 Dose: 50 mg Non-Formulary Medication (Olopatadine Hcl [Pataday]) 2.5 ml OU DAILY [facility] Non-Formulary Medication (Protein Supplement [Promod]) 30 ml GT DAILY [facility] Last Admin: 04/29/18 18:04 Dose: Not Given Pantoprazole Sodium (Protonix -) 20 mg PO DAILY [facility] Last Admin: 05/01/18 10:48 Dose: 20 mg Phenobarbital (Phenobarbital -) 30 mg GT BID [facility] Last Admin: 05/01/18 10:47 Dose: 30 mg Topiramate (Topamax -) 200 mg GT BID [facility] Last Admin: 05/01/18 00:08 Dose: 200 mg Valproate Sodium (Depakene -) 750 mg GT BID [facility] Last Admin: 05/01/18 10:44 Dose: 750 mg - Objective Vital Signs: Vital Signs Temperature 98.3 F 05/01/18 10:00 Pulse Rate 95 H 05/01/18 10:00 Respiratory Rate 18 05/01/18 10:00 Blood Pressure 126/77 05/01/18 10:00 O2 Sat by Pulse Oximetry (%) 95 05/01/18 09:00 Constitutional: Yes: No Distress, Calm Cardiovascular: Yes: Regular Rate and Rhythm Respiratory: Yes: Regular, Poor Air Entry, Other (on face ask) Musculoskeletal: Yes: WNL Extremities: Yes: Other Neurological: Yes: Other Psychiatric: Yes: Other Labs: CBC, BMP 05/01/18 05:30 05/01/18 05:30 INR, PTT INR 1.02 (0.83-1.09) 04/29/18 12:43 - ....Imaging Chest X-ray: Report Reviewed, Image Reviewed Assessment/Plan Problem List - Problems (1) COPD exacerbation Code(s): J44.1 - CHRONIC OBSTRUCTIVE PULMONARY DISEASE W (ACUTE) EXACERBATION (2) Acute respiratory failure with hypoxia Code(s): J96.01 - ACUTE RESPIRATORY FAILURE WITH HYPOXIA (3) Anoxic brain damage Code(s): G93.1 - ANOXIC BRAIN DAMAGE, NOT ELSEWHERE CLASSIFIED (4) HLD (hyperlipidemia) Code(s): E78.5 - HYPERLIPIDEMIA, UNSPECIFIED (5) HTN (hypertension) Code(s): I10 - ESSENTIAL (PRIMARY) HYPERTENSION (6) Seizure disorder Code(s): G40.909 - EPILEPSY, UNSP, NOT INTRACTABLE, WITHOUT STATUS EPILEPTICUS patient could very well have aspiration issues plan asp precautions continue abx resp support rest as per the team
--- NOTE | 2018-05-01 14:19 | PN ---
Progress Note, Physician History of Present Illness: stable - Current Medication List Current Medications: Active Medications Acetaminophen (Tylenol -) 650 mg PO Q6H PRN PRN Reason: FEVER Albuterol/Ipratropium (Duoneb -) 1 amp NEB Q4H PRN PRN Reason: SHORTNESS OF BREATH Last Admin: 05/01/18 01:54 Dose: 1 amp Amlodipine Besylate (Norvasc -) 2.5 mg GT DAILY [facility] Last Admin: 05/01/18 10:47 Dose: 2.5 mg Arformoterol Tartrate (Brovana (Restricted To Pulmonology/Resp) -) 1 amp NEB BID [facility] Last Admin: 05/01/18 09:00 Dose: 1 amp Ascorbic Acid (Vitamin C -) 500 mg GT BID [facility] Last Admin: 05/01/18 10:47 Dose: 500 mg Atorvastatin Calcium (Lipitor -) 20 mg PO HS [facility] Last Admin: 05/01/18 00:08 Dose: 20 mg Budesonide (Pulmicort 0.25 Mg Nebulizer -) 1 amp NEB BID [facility] Last Admin: 05/01/18 09:01 Dose: Not Given Calcium Carbonate/Cholecalciferol (Os-Jamar 500+D -) 2 tab GT HS [facility] Last Admin: 05/01/18 00:07 Dose: 2 tab Heparin Sodium (Porcine) (Heparin -) 5,000 unit SQ BID [facility] Last Admin: 05/01/18 10:46 Dose: 5,000 unit Ceftriaxone Sodium 1 gm/ (Dextrose) 50 mls @ 100 mls/hr IVPB DAILY [facility]; Protocol Last Admin: 05/01/18 10:45 Dose: 100 mls/hr Lactulose (Cephulac (Oral Use)) 30 gm GT DAILY [facility] Last Admin: 05/01/18 10:46 Dose: 30 gm Levetiracetam (Keppra -) 1,500 mg PO BID [facility] Last Admin: 05/01/18 10:47 Dose: 1,500 mg Methylprednisolone Sodium Succinate (Solu-Medrol -) 40 mg IVPUSH Q8H-IV [facility] Metoclopramide HCl (Reglan Oral Solution -) 5 mg GT QID [facility] Last Admin: 05/01/18 10:48 Dose: 5 mg Metoprolol Tartrate (Lopressor -) 50 mg GT BID [facility] Last Admin: 05/01/18 10:47 Dose: 50 mg Non-Formulary Medication (Olopatadine Hcl [Pataday]) 2.5 ml OU DAILY [facility] Non-Formulary Medication (Protein Supplement [Promod]) 30 ml GT DAILY [facility] Last Admin: 04/29/18 18:04 Dose: Not Given Pantoprazole Sodium (Protonix -) 20 mg PO DAILY [facility] Last Admin: 05/01/18 10:48 Dose: 20 mg Phenobarbital (Phenobarbital -) 30 mg GT BID [facility] Last Admin: 05/01/18 10:47 Dose: 30 mg Topiramate (Topamax -) 200 mg GT BID [facility] Last Admin: 05/01/18 00:08 Dose: 200 mg Valproate Sodium (Depakene -) 750 mg GT BID [facility] Last Admin: 05/01/18 10:44 Dose: 750 mg - Objective Vital Signs: Vital Signs Temperature 98.3 F 05/01/18 10:00 Pulse Rate 95 H 05/01/18 10:00 Respiratory Rate 18 05/01/18 10:00 Blood Pressure 126/77 05/01/18 10:00 O2 Sat by Pulse Oximetry (%) 95 05/01/18 09:00 Constitutional: Yes: No Distress HENT: Yes: Atraumatic Neck: Yes: Supple Cardiovascular: Yes: Regular Rate and Rhythm Respiratory: Yes: Rhonchi Gastrointestinal: Yes: Normal Bowel Sounds Extremities: Yes: Shortened Edema: No Peripheral Pulses WNL: Yes Neurological: Yes: Alert Labs: CBC, BMP 05/01/18 05:30 05/01/18 05:30 INR, PTT INR 1.02 (0.83-1.09) 04/29/18 12:43 Problem List - Problems (1) COPD exacerbation Assessment/Plan: iv steroids duo nebs pulmonary eval..done Code(s): J44.1 - CHRONIC OBSTRUCTIVE PULMONARY DISEASE W (ACUTE) EXACERBATION (2) Acute respiratory failure with hypoxia Code(s): J96.01 - ACUTE RESPIRATORY FAILURE WITH HYPOXIA (3) Anoxic brain damage Code(s): G93.1 - ANOXIC BRAIN DAMAGE, NOT ELSEWHERE CLASSIFIED (4) Functional quadriplegia Code(s): R53.2 - FUNCTIONAL QUADRIPLEGIA (5) HLD (hyperlipidemia) Assessment/Plan: on meds Code(s): E78.5 - HYPERLIPIDEMIA, UNSPECIFIED (6) HTN (hypertension) Assessment/Plan: on meds monitor bp Code(s): I10 - ESSENTIAL (PRIMARY) HYPERTENSION (7) Scoliosis deformity of spine Code(s): M41.9 - SCOLIOSIS, UNSPECIFIED (8) Seizure disorder Code(s): G40.909 - EPILEPSY, UNSP, NOT INTRACTABLE, WITHOUT STATUS EPILEPTICUS (9) Pneumonia Code(s): J18.9 - PNEUMONIA, UNSPECIFIED ORGANISM
[2018-05-02] MEDS: methylPREDNISolone NA SUCC 40 MG/1 ML VIAL IVPUSH SCH ×3 (03:00→17:05)
[2018-05-02] MEDS ORDERED: PT OWN MED DRAWER 7, Y5N ONE ×2 (07:34→20:45)
[2018-05-02] MEDS: BUDESONIDE 0.25 MG/2ML INH SUSP VIAL NEB SCH ×2 (07:48→21:15)
[2018-05-02] MEDS: ARFORMOTEROL TARTRATE 15 MCG/2 ML VIAL NEB SCH ×2 (07:48→21:05)
[2018-05-02] MEDS ORDERED: cefTRIAXone SODIUM 1 GM VIAL ONE (09:28)
[2018-05-02] MEDS ORDERED: DEXTROSE 5%-WATER - 50 ML IVPB ONE (09:29)
[2018-05-02] MEDS: LACTULOSE 20 GM/30 ML UDC (FOR ORAL USE ONLY) GT SCH (10:23)
[2018-05-02] MEDS: levETIRAcetam 500 MG TABLET (FP) PO SCH (10:24)
[2018-05-02] MEDS: PHENobarbital 30 MG TABLET GT SCH (10:24)
[2018-05-02] MEDS: ASCORBIC ACID 500 MG TABLET (FP) GT SCH ×2 (10:25→22:57)
[2018-05-02] MEDS: METOPROLOL TARTRATE 50 MG TABLET (FP) GT SCH (10:25)
[2018-05-02] MEDS: amLODIPine BESYLATE 2.5 MG TABLET (FP) GT SCH (10:25)
[2018-05-02] MEDS: PANTOPRAZOLE 20 MG TABLET (FP) PO SCH (10:25)
[2018-05-02] MEDS: VALPROATE SODIUM 250 MG/5 ML UNIT DOSE CUP GT SCH (10:25)
[2018-05-02] MEDS: TOPIRAMATE 200 MG TABLET (FP) GT SCH ×2 (10:25→23:25)
[2018-05-02] MEDS: HEPARIN NA (PORCINE) 5,000 UNITS/ML 1ML VIAL SQ SCH ×2 (10:25→23:25)
[2018-05-02] MEDS: METOCLOPRAMIDE HCL 5 MG/5 ML UNIT DOSE CUP GT SCH ×4 (10:26→22:57)
[2018-05-02] MEDS: CEFTRIAXONE 1 GM in DEXTROSE 5%-WATER - 50 ML IVPB SCH (10:26)
--- NOTE | 2018-05-02 11:36 | PN ---
Progress Note, Physician - Current Medication List Current Medications: Active Medications Acetaminophen (Tylenol -) 650 mg PO Q6H PRN PRN Reason: FEVER Albuterol/Ipratropium (Duoneb -) 1 amp NEB Q4H PRN PRN Reason: SHORTNESS OF BREATH Last Admin: 05/01/18 01:54 Dose: 1 amp Amlodipine Besylate (Norvasc -) 2.5 mg GT DAILY [facility] Last Admin: 05/02/18 10:25 Dose: 2.5 mg Arformoterol Tartrate (Brovana (Restricted To Pulmonology/Resp) -) 1 amp NEB RBID [facility] Last Admin: 05/02/18 07:48 Dose: 1 amp Ascorbic Acid (Vitamin C -) 500 mg GT BID [facility] Last Admin: 05/02/18 10:25 Dose: 500 mg Atorvastatin Calcium (Lipitor -) 20 mg PO HS [facility] Last Admin: 05/01/18 22:35 Dose: 20 mg Budesonide (Pulmicort 0.25 Mg Nebulizer -) 1 amp NEB RBID [facility] Last Admin: 05/02/18 07:48 Dose: 1 amp Calcium Carbonate/Cholecalciferol (Os-Jamar 500+D -) 2 tab GT HS [facility] Last Admin: 05/01/18 22:35 Dose: 2 tab Heparin Sodium (Porcine) (Heparin -) 5,000 unit SQ BID [facility] Last Admin: 05/02/18 10:25 Dose: 5,000 unit Ceftriaxone Sodium 1 gm/ (Dextrose) 50 mls @ 100 mls/hr IVPB DAILY [facility]; Protocol Last Admin: 05/02/18 10:26 Dose: 100 mls/hr Lactulose (Cephulac (Oral Use)) 30 gm GT DAILY [facility] Last Admin: 05/02/18 10:23 Dose: 30 gm Levetiracetam (Keppra -) 1,500 mg PO BID [facility] Last Admin: 05/02/18 10:24 Dose: 1,500 mg Methylprednisolone Sodium Succinate (Solu-Medrol -) 40 mg IVPUSH Q8H-IV [facility] Last Admin: 05/02/18 10:25 Dose: 40 mg Metoclopramide HCl (Reglan Oral Solution -) 5 mg GT QID [facility] Last Admin: 05/02/18 10:26 Dose: 5 mg Metoprolol Tartrate (Lopressor -) 50 mg GT BID [facility] Last Admin: 05/02/18 10:25 Dose: 50 mg Pantoprazole Sodium (Protonix -) 20 mg PO DAILY [facility] Last Admin: 05/02/18 10:25 Dose: 20 mg Phenobarbital (Phenobarbital -) 30 mg GT BID [facility] Last Admin: 05/02/18 10:24 Dose: 30 mg Topiramate (Topamax -) 200 mg GT BID [facility] Last Admin: 05/02/18 10:25 Dose: 200 mg Valproate Sodium (Depakene -) 750 mg GT BID [facility] Last Admin: 05/02/18 10:25 Dose: 750 mg - Objective Vital Signs: Vital Signs Temperature 97.8 F 05/02/18 06:00 Pulse Rate 74 05/02/18 06:00 Respiratory Rate 20 05/02/18 06:00 Blood Pressure 119/77 05/02/18 06:00 O2 Sat by Pulse Oximetry (%) 95 05/01/18 20:10 Labs: CBC, BMP 05/01/18 05:30 05/01/18 05:30 INR, PTT INR 1.02 (0.83-1.09) 04/29/18 12:43
--- NOTE | 2018-05-02 13:14 | PN ---
Progress Note (short form) - Note Progress Note: PULMONARY Pt nonverbal. No fevers recorded. Vital Signs Period Temp Pulse Resp BP Sys/Restrepo Pulse Ox Last 24 Hr 97.3 F-99.3 F 61-98 16-20 115-157/54-95 95-98 Gen: NAD, breathing nonlabored Heart: RRR Lung: decreased breath sounds at the bases Abd: soft, nontender Ext: no edema CBC, BMP 05/01/18 05:30 05/01/18 05:30 Active Medications Acetaminophen (Tylenol -) 650 mg PO Q6H PRN PRN Reason: FEVER Albuterol/Ipratropium (Duoneb -) 1 amp NEB Q4H PRN PRN Reason: SHORTNESS OF BREATH Last Admin: 05/01/18 01:54 Dose: 1 amp Amlodipine Besylate (Norvasc -) 2.5 mg GT DAILY [facility] Last Admin: 05/02/18 10:25 Dose: 2.5 mg Arformoterol Tartrate (Brovana (Restricted To Pulmonology/Resp) -) 1 amp NEB RBID [facility] Last Admin: 05/02/18 07:48 Dose: 1 amp Ascorbic Acid (Vitamin C -) 500 mg GT BID [facility] Last Admin: 05/02/18 10:25 Dose: 500 mg Atorvastatin Calcium (Lipitor -) 20 mg PO HS [facility] Last Admin: 05/01/18 22:35 Dose: 20 mg Budesonide (Pulmicort 0.25 Mg Nebulizer -) 1 amp NEB RBID [facility] Last Admin: 05/02/18 07:48 Dose: 1 amp Calcium Carbonate/Cholecalciferol (Os-Jamar 500+D -) 2 tab GT HS [facility] Last Admin: 05/01/18 22:35 Dose: 2 tab Heparin Sodium (Porcine) (Heparin -) 5,000 unit SQ BID [facility] Last Admin: 05/02/18 10:25 Dose: 5,000 unit Ceftriaxone Sodium 1 gm/ (Dextrose) 50 mls @ 100 mls/hr IVPB DAILY [facility]; Protocol Last Admin: 05/02/18 10:26 Dose: 100 mls/hr Lactulose (Cephulac (Oral Use)) 30 gm GT DAILY [facility] Last Admin: 05/02/18 10:23 Dose: 30 gm Levetiracetam (Keppra -) 1,500 mg PO BID [facility] Last Admin: 02/28/19 10:24 Dose: 1,500 mg Methylprednisolone Sodium Succinate (Solu-Medrol -) 40 mg IVPUSH Q8H-IV [facility] Last Admin: 05/02/18 10:25 Dose: 40 mg Metoclopramide HCl (Reglan Oral Solution -) 5 mg GT QID [facility] Last Admin: 05/02/18 10:26 Dose: 5 mg Metoprolol Tartrate (Lopressor -) 50 mg GT BID [facility] Last Admin: 05/02/18 10:25 Dose: 50 mg Pantoprazole Sodium (Protonix -) 20 mg PO DAILY [facility] Last Admin: 05/02/18 10:25 Dose: 20 mg Phenobarbital (Phenobarbital -) 30 mg GT BID [facility] Last Admin: 05/02/18 10:24 Dose: 30 mg Topiramate (Topamax -) 200 mg GT BID [facility] Last Admin: 05/02/18 10:25 Dose: 200 mg Valproate Sodium (Depakene -) 750 mg GT BID [facility] Last Admin: 05/02/18 10:25 Dose: 750 mg A/P Acute COPD Exacerbation Pneumonia Anoxic Brain Injury Functional Quadriplegia Seizure Disorder - continue antibiotics - can decrease medrol to q12h - inhaled bronchodilators - O2 to keep Spo2 >90% - aspiration precautions - DVT prophylaxis
--- NOTE | 2018-05-02 13:30 | PN ---
Progress Note, Physician History of Present Illness: stable - Current Medication List Current Medications: Active Medications Acetaminophen (Tylenol -) 650 mg PO Q6H PRN PRN Reason: FEVER Albuterol/Ipratropium (Duoneb -) 1 amp NEB Q4H PRN PRN Reason: SHORTNESS OF BREATH Last Admin: 05/01/18 01:54 Dose: 1 amp Amlodipine Besylate (Norvasc -) 2.5 mg GT DAILY [facility] Last Admin: 05/02/18 10:25 Dose: 2.5 mg Arformoterol Tartrate (Brovana (Restricted To Pulmonology/Resp) -) 1 amp NEB RBID [facility] Last Admin: 05/02/18 07:48 Dose: 1 amp Ascorbic Acid (Vitamin C -) 500 mg GT BID [facility] Last Admin: 05/02/18 10:25 Dose: 500 mg Atorvastatin Calcium (Lipitor -) 20 mg PO HS [facility] Last Admin: 05/01/18 22:35 Dose: 20 mg Budesonide (Pulmicort 0.25 Mg Nebulizer -) 1 amp NEB RBID [facility] Last Admin: 05/02/18 07:48 Dose: 1 amp Calcium Carbonate/Cholecalciferol (Os-Jamar 500+D -) 2 tab GT HS [facility] Last Admin: 05/01/18 22:35 Dose: 2 tab Heparin Sodium (Porcine) (Heparin -) 5,000 unit SQ BID [facility] Last Admin: 05/02/18 10:25 Dose: 5,000 unit Ceftriaxone Sodium 1 gm/ (Dextrose) 50 mls @ 100 mls/hr IVPB DAILY [facility]; Protocol Last Admin: 05/02/18 10:26 Dose: 100 mls/hr Lactulose (Cephulac (Oral Use)) 30 gm GT DAILY [facility] Last Admin: 05/02/18 10:23 Dose: 30 gm Levetiracetam (Keppra -) 1,500 mg PO BID [facility] Last Admin: 05/02/18 10:24 Dose: 1,500 mg Methylprednisolone Sodium Succinate (Solu-Medrol -) 40 mg IVPUSH Q8H-IV [facility] Last Admin: 05/02/18 10:25 Dose: 40 mg Metoclopramide HCl (Reglan Oral Solution -) 5 mg GT QID [facility] Last Admin: 05/02/18 10:26 Dose: 5 mg Metoprolol Tartrate (Lopressor -) 50 mg GT BID [facility] Last Admin: 05/02/18 10:25 Dose: 50 mg Pantoprazole Sodium (Protonix -) 20 mg PO DAILY [facility] Last Admin: 05/02/18 10:25 Dose: 20 mg Phenobarbital (Phenobarbital -) 30 mg GT BID [facility] Last Admin: 05/02/18 10:24 Dose: 30 mg Topiramate (Topamax -) 200 mg GT BID [facility] Last Admin: 05/02/18 10:25 Dose: 200 mg Valproate Sodium (Depakene -) 750 mg GT BID [facility] Last Admin: 05/02/18 10:25 Dose: 750 mg - Objective Vital Signs: Vital Signs Temperature 97.3 F L 05/02/18 10:00 Pulse Rate 66 05/02/18 11:58 Respiratory Rate 18 05/02/18 10:00 Blood Pressure 121/54 L 05/02/18 10:00 O2 Sat by Pulse Oximetry (%) 98 05/02/18 11:58 Constitutional: Yes: No Distress HENT: Yes: Atraumatic Neck: Yes: Supple Cardiovascular: Yes: Regular Rate and Rhythm Respiratory: Yes: CTA Bilaterally Gastrointestinal: Yes: Normal Bowel Sounds Extremities: Yes: WNL Edema: No Edema: LUE: Trace, RUE: Trace, LLE: Trace, RLE: Trace Peripheral Pulses WNL: Yes Neurological: Yes: Alert Labs: CBC, BMP 05/01/18 05:30 05/01/18 05:30 INR, PTT INR 1.02 (0.83-1.09) 04/29/18 12:43 Problem List - Problems (1) COPD exacerbation Assessment/Plan: iv steroids duo nebs pulmonary eval..done Code(s): J44.1 - CHRONIC OBSTRUCTIVE PULMONARY DISEASE W (ACUTE) EXACERBATION (2) Acute respiratory failure with hypoxia Code(s): J96.01 - ACUTE RESPIRATORY FAILURE WITH HYPOXIA (3) Anoxic brain damage Code(s): G93.1 - ANOXIC BRAIN DAMAGE, NOT ELSEWHERE CLASSIFIED (4) Functional quadriplegia Code(s): R53.2 - FUNCTIONAL QUADRIPLEGIA (5) HLD (hyperlipidemia) Assessment/Plan: on meds Code(s): E78.5 - HYPERLIPIDEMIA, UNSPECIFIED (6) HTN (hypertension) Assessment/Plan: on meds monitor bp Code(s): I10 - ESSENTIAL (PRIMARY) HYPERTENSION (7) Scoliosis deformity of spine Code(s): M41.9 - SCOLIOSIS, UNSPECIFIED (8) Seizure disorder Assessment/Plan: continue home meds Code(s): G40.909 - EPILEPSY, UNSP, NOT INTRACTABLE, WITHOUT STATUS EPILEPTICUS (9) Pneumonia Assessment/Plan: possible aspiration on abx id consult Code(s): J18.9 - PNEUMONIA, UNSPECIFIED ORGANISM (10) Feeding by G-tube Assessment/Plan: g tube in place Code(s): Z93.1 - GASTROSTOMY STATUS
[2018-05-02] MEDS ORDERED: ACETAMINOPHEN 1000 MG/100 ML VIAL (NON FORMULARY) IVPB PRN (22:03)
[2018-05-02] MEDS ORDERED: METOPROLOL TARTRATE 5 MG/5 ML VIAL IVPUSH PRN (22:04)
[2018-05-02] MEDS: ATORVASTATIN CA 20 MG TABLET (FP) PO SCH (22:56)
[2018-05-02] MEDS: CALCIUM 500MG/VIT-D 200 UNITS COMBO TABLET (FP) GT SCH (22:57)
[2018-05-02] MEDS: VALPROATE SODIUM 500 MG/5 ML VIAL IV SCH (22:58)
[2018-05-02] MEDS: levETIRAcetam 500 MG/5 ML INJECTION VIAL IVPB SCH (23:11)
[2018-05-02] MEDS: PHENobarbital SODIUM 65 MG/1 ML VIAL IV SCH (23:20)
[2018-05-03] MEDS: methylPREDNISolone NA SUCC 40 MG/1 ML VIAL IVPUSH SCH ×2 (03:00→12:55)
[2018-05-03] MEDS ORDERED: PT OWN MED DRAWER 7, Y5N ONE ×2 (07:36→08:49)
[2018-05-03] MEDS: ARFORMOTEROL TARTRATE 15 MCG/2 ML VIAL NEB SCH ×2 (07:55→21:30)
[2018-05-03] MEDS: BUDESONIDE 0.25 MG/2ML INH SUSP VIAL NEB SCH ×2 (07:56→21:30)
[2018-05-03] MEDS ORDERED: cefTRIAXone SODIUM 1 GM VIAL ONE (08:49)
[2018-05-03] MEDS ORDERED: DEXTROSE 5%-WATER - 50 ML IVPB ONE (08:49)
[2018-05-03] MEDS ORDERED: PANTOPRAZOLE SODIUM 40 MG VIAL IVPB SCH (10:00)
[2018-05-03] MEDS: levETIRAcetam 500 MG/5 ML INJECTION VIAL IVPB SCH (12:45)
[2018-05-03] MEDS: HEPARIN NA (PORCINE) 5,000 UNITS/ML 1ML VIAL SQ SCH ×2 (12:46→23:15)
[2018-05-03] MEDS: LACTULOSE 20 GM/30 ML UDC (FOR ORAL USE ONLY) GT SCH (12:47)
[2018-05-03] MEDS: METOCLOPRAMIDE HCL 5 MG/5 ML UNIT DOSE CUP GT SCH ×4 (12:47→23:15)
[2018-05-03] MEDS: PHENobarbital SODIUM 65 MG/1 ML VIAL IV SCH (12:53)
[2018-05-03] MEDS: CEFTRIAXONE 1 GM in DEXTROSE 5%-WATER - 50 ML IVPB SCH (12:54)
[2018-05-03] MEDS: amLODIPine BESYLATE 2.5 MG TABLET (FP) GT SCH (12:56)
[2018-05-03] MEDS: TOPIRAMATE 200 MG TABLET (FP) GT SCH ×2 (12:56→23:15)
[2018-05-03] MEDS: ASCORBIC ACID 500 MG TABLET (FP) GT SCH ×2 (12:56→23:16)
[2018-05-03] MEDS: VALPROATE SODIUM 500 MG/5 ML VIAL IV SCH (12:58)
--- NOTE | 2018-05-03 14:14 | PN ---
Progress Note, Physician History of Present Illness: stable had a g tube placed - Current Medication List Current Medications: Active Medications Acetaminophen (Ofirmev Injection -) 500 mg IVPB Q8H PRN PRN Reason: FEVER Albuterol/Ipratropium (Duoneb -) 1 amp NEB Q4H PRN PRN Reason: SHORTNESS OF BREATH Last Admin: 05/01/18 01:54 Dose: 1 amp Amlodipine Besylate (Norvasc -) 2.5 mg GT DAILY [facility] Last Admin: 05/03/18 12:56 Dose: 2.5 mg Arformoterol Tartrate (Brovana (Restricted To Pulmonology/Resp) -) 1 amp NEB RBID [facility] Last Admin: 05/03/18 07:55 Dose: 1 amp Ascorbic Acid (Vitamin C -) 500 mg GT BID [facility] Last Admin: 05/03/18 12:56 Dose: 500 mg Atorvastatin Calcium (Lipitor -) 20 mg PO HS [facility] Last Admin: 05/02/18 22:56 Dose: Not Given Budesonide (Pulmicort 0.25 Mg Nebulizer -) 1 amp NEB RBID [facility] Last Admin: 05/03/18 07:56 Dose: 1 amp Calcium Carbonate/Cholecalciferol (Os-Jamar 500+D -) 2 tab GT HS [facility] Last Admin: 05/02/18 22:57 Dose: Not Given Heparin Sodium (Porcine) (Heparin -) 5,000 unit SQ BID [facility] Last Admin: 05/03/18 12:46 Dose: 5,000 unit Ceftriaxone Sodium 1 gm/ (Dextrose) 50 mls @ 100 mls/hr IVPB DAILY [facility]; Protocol Last Admin: 05/03/18 12:54 Dose: 100 mls/hr Lactulose (Cephulac (Oral Use)) 30 gm GT DAILY [facility] Last Admin: 05/03/18 12:47 Dose: 30 gm Levetiracetam (Keppra Injection -) 1,500 mg IVPB BID [facility] Last Admin: 05/03/18 12:45 Dose: 1,500 mg Methylprednisolone Sodium Succinate (Solu-Medrol -) 40 mg IVPUSH Q8H-IV [facility] Last Admin: 05/03/18 12:55 Dose: 40 mg Metoclopramide HCl (Reglan Oral Solution -) 5 mg GT QID [facility] Last Admin: 05/03/18 12:47 Dose: 5 mg Metoprolol Tartrate (Lopressor Injection -) 5 mg IVPUSH Q6H PRN PRN Reason: SBP > 135 OR HR > 75 Pantoprazole Sodium (Protonix Iv) 40 mg IVPB DAILY [facility] Last Admin: 05/03/18 12:52 Dose: 40 mg Phenobarbital (Phenobarbital Injection -) 30 mg IV BID [facility] Last Admin: 05/03/18 12:53 Dose: 30 mg Topiramate (Topamax -) 200 mg GT BID [facility] Last Admin: 05/03/18 12:56 Dose: 200 mg Valproate Sodium (Depacon Injection -) 750 mg IV BID [facility] Last Admin: 05/03/18 12:58 Dose: 750 mg - Objective Vital Signs: Vital Signs Temperature 98.0 F 05/03/18 06:00 Pulse Rate 82 05/03/18 06:00 Respiratory Rate 20 05/03/18 06:00 Blood Pressure 128/60 05/03/18 06:00 O2 Sat by Pulse Oximetry (%) 97 05/02/18 21:00 Constitutional: Yes: No Distress, Calm Cardiovascular: Yes: S1, S2 Musculoskeletal: Yes: WNL Extremities: Yes: Other Neurological: Yes: Other Psychiatric: Yes: Other Labs: CBC, BMP 05/01/18 05:30 05/01/18 05:30 INR, PTT INR 1.02 (0.83-1.09) 04/29/18 12:43 Assessment/Plan Problem List - Problems (1) COPD exacerbation Code(s): J44.1 - CHRONIC OBSTRUCTIVE PULMONARY DISEASE W (ACUTE) EXACERBATION (2) Acute respiratory failure with hypoxia Code(s): J96.01 - ACUTE RESPIRATORY FAILURE WITH HYPOXIA (3) Anoxic brain damage Code(s): G93.1 - ANOXIC BRAIN DAMAGE, NOT ELSEWHERE CLASSIFIED (4) HLD (hyperlipidemia) Code(s): E78.5 - HYPERLIPIDEMIA, UNSPECIFIED (5) HTN (hypertension) Code(s): I10 - ESSENTIAL (PRIMARY) HYPERTENSION (6) Seizure disorder Code(s): G40.909 - EPILEPSY, UNSP, NOT INTRACTABLE, WITHOUT STATUS EPILEPTICUS patient could very well have aspiration issues plan asp precautions continue abx resp support rest as per the team will see how patient does on feeds once stable and tolerating feeds will deescaalte
--- NOTE | 2018-05-03 17:40 | PN ---
Progress Note, Physician History of Present Illness: stable - Current Medication List Current Medications: Active Medications Acetaminophen (Ofirmev Injection -) 500 mg IVPB Q8H PRN PRN Reason: FEVER Albuterol/Ipratropium (Duoneb -) 1 amp NEB Q4H PRN PRN Reason: SHORTNESS OF BREATH Last Admin: 05/01/18 01:54 Dose: 1 amp Amlodipine Besylate (Norvasc -) 2.5 mg GT DAILY [facility] Last Admin: 05/03/18 12:56 Dose: 2.5 mg Arformoterol Tartrate (Brovana (Restricted To Pulmonology/Resp) -) 1 amp NEB RBID [facility] Last Admin: 05/03/18 07:55 Dose: 1 amp Ascorbic Acid (Vitamin C -) 500 mg GT BID [facility] Last Admin: 05/03/18 12:56 Dose: 500 mg Atorvastatin Calcium (Lipitor -) 20 mg PO HS [facility] Last Admin: 05/02/18 22:56 Dose: Not Given Budesonide (Pulmicort 0.25 Mg Nebulizer -) 1 amp NEB RBID [facility] Last Admin: 05/03/18 07:56 Dose: 1 amp Calcium Carbonate/Cholecalciferol (Os-Jamar 500+D -) 2 tab GT HS [facility] Last Admin: 05/02/18 22:57 Dose: Not Given Heparin Sodium (Porcine) (Heparin -) 5,000 unit SQ BID [facility] Last Admin: 05/03/18 12:46 Dose: 5,000 unit Ceftriaxone Sodium 1 gm/ (Dextrose) 50 mls @ 100 mls/hr IVPB DAILY [facility]; Protocol Last Admin: 05/03/18 12:54 Dose: 100 mls/hr Lactulose (Cephulac (Oral Use)) 30 gm GT DAILY [facility] Last Admin: 05/03/18 12:47 Dose: 30 gm Levetiracetam (Keppra Injection -) 1,500 mg IVPB BID [facility] Last Admin: 05/03/18 12:45 Dose: 1,500 mg Methylprednisolone Sodium Succinate (Solu-Medrol -) 40 mg IVPUSH Q8H-IV [facility] Last Admin: 05/03/18 12:55 Dose: 40 mg Metoclopramide HCl (Reglan Oral Solution -) 5 mg GT QID [facility] Last Admin: 05/03/18 15:33 Dose: 5 mg Metoprolol Tartrate (Lopressor Injection -) 5 mg IVPUSH Q6H PRN PRN Reason: SBP > 135 OR HR > 75 Pantoprazole Sodium (Protonix Iv) 40 mg IVPB DAILY [facility] Last Admin: 05/03/18 12:52 Dose: 40 mg Phenobarbital (Phenobarbital Injection -) 30 mg IV BID [facility] Last Admin: 05/03/18 12:53 Dose: 30 mg Topiramate (Topamax -) 200 mg GT BID [facility] Last Admin: 05/03/18 12:56 Dose: 200 mg Valproate Sodium (Depacon Injection -) 750 mg IV BID [facility] Last Admin: 05/03/18 12:58 Dose: 750 mg - Objective Vital Signs: Vital Signs Temperature 98 F 05/03/18 10:00 Pulse Rate 91 H 05/03/18 10:00 Respiratory Rate 20 05/03/18 10:00 Blood Pressure 120/85 05/03/18 10:00 O2 Sat by Pulse Oximetry (%) 99 05/03/18 09:00 Constitutional: Yes: Calm HENT: Yes: Atraumatic Neck: Yes: Supple Cardiovascular: Yes: Regular Rate and Rhythm Respiratory: Yes: Rhonchi Gastrointestinal: Yes: Normal Bowel Sounds, Other (peg in place) Extremities: Yes: Deformity Neurological: Yes: Alert Labs: CBC, BMP 05/01/18 05:30 05/01/18 05:30 INR, PTT INR 1.02 (0.83-1.09) 04/29/18 12:43 Problem List - Problems (1) COPD exacerbation Assessment/Plan: iv steroids...taper duo nebs pulmonary eval..done Code(s): J44.1 - CHRONIC OBSTRUCTIVE PULMONARY DISEASE W (ACUTE) EXACERBATION (2) Acute respiratory failure with hypoxia Code(s): J96.01 - ACUTE RESPIRATORY FAILURE WITH HYPOXIA (3) Anoxic brain damage Code(s): G93.1 - ANOXIC BRAIN DAMAGE, NOT ELSEWHERE CLASSIFIED (4) Functional quadriplegia Code(s): R53.2 - FUNCTIONAL QUADRIPLEGIA (5) HLD (hyperlipidemia) Assessment/Plan: on meds Code(s): E78.5 - HYPERLIPIDEMIA, UNSPECIFIED (6) HTN (hypertension) Assessment/Plan: on meds monitor bp Code(s): I10 - ESSENTIAL (PRIMARY) HYPERTENSION (7) Scoliosis deformity of spine Code(s): M41.9 - SCOLIOSIS, UNSPECIFIED (8) Seizure disorder Assessment/Plan: continue home meds Code(s): G40.909 - EPILEPSY, UNSP, NOT INTRACTABLE, WITHOUT STATUS EPILEPTICUS (9) Pneumonia Assessment/Plan: possible aspiration on abx id consult Code(s): J18.9 - PNEUMONIA, UNSPECIFIED ORGANISM
[2018-05-03] MEDS ORDERED: methylPREDNISolone NA SUCC 40 MG/1 ML VIAL IVPUSH SCH (22:00)
[2018-05-03] MEDS ORDERED: PHENobarbital 30 MG TABLET GT SCH (22:00)
[2018-05-03] MEDS ORDERED: levETIRAcetam 500 MG/5 ML ORAL SOLUTION (UNIT-DOSE CUPS) GT SCH (22:00)
[2018-05-03] MEDS ORDERED: METOPROLOL TARTRATE 50 MG TABLET (FP) GT SCH (22:00)
[2018-05-03] MEDS ORDERED: VALPROATE SODIUM 250 MG/5 ML UNIT DOSE CUP GT SCH (22:00)
[2018-05-03] MEDS: CALCIUM 500MG/VIT-D 200 UNITS COMBO TABLET (FP) GT SCH (23:16)
[2018-05-03] MEDS: ATORVASTATIN CA 20 MG TABLET (FP) PO SCH (23:16)
[2018-05-03] MEDS ORDERED: ALBUTEROL SO4 2.5/IPRATROPIUM 0.5 INH SOL 3 ML VIAL.NEB. NEB PRN (23:55)
[2018-05-04 08:09] LABS: BASO % 0.2 % (0-2.0); EOS % 0.1 % (0-4.5); HEMATOCRIT 40.2 % (32.4-45.2); HEMOGLOBIN 13.9 GM/dL (10.7-15.3); LYMPH % 11.4 % (8-40); MCH 32.6 pg (25.7-33.7); MCHC 34.6 g/dl (32.0-36.0); MEAN CELL VOLUME 94.2 fl (80-96); MONO % 7.4 % (3.8-10.2); NEUT % 80.9 % (42.8-82.8); PLATELET COUNT 283 K/MM3 (134-434); RBC 4.27 M/mm3 (3.60-5.2); RDW 12.9 % (11.6-15.6); WHITE BLOOD COUNT 10.8 K/mm3 (4.0-10.0)
[2018-05-04] MEDS: ARFORMOTEROL TARTRATE 15 MCG/2 ML VIAL NEB SCH ×2 (08:36→21:00)
[2018-05-04] MEDS: BUDESONIDE 0.25 MG/2ML INH SUSP VIAL NEB SCH ×2 (08:37→21:00)
[2018-05-04 08:45] LABS: ALBUMIN 2.8 g/dl (3.4-5.0); ALK PHOS 141 U/L (45-117); ANION GAP 7 MMOL/L (8-16); BILIRUBIN,TOTAL 0.2 mg/dL (0.2-1); BLOOD UREA NITROGEN 16 mg/dL (7-18); CALCIUM 8.9 mg/dL (8.5-10.1); CHLORIDE 98 mmol/L (98-107); CO2 33 mmol/L (21-32); CREATININE 0.3 mg/dL (0.55-1.3); GLUCOSE,RANDOM 108 mg/dL (74-106); SGOT/AST 6 U/L (15-37); SGPT/ALT 21 U/L (13-61); SODIUM 138 mmol/L (136-145); TOT PROT 6.5 g/dl (6.4-8.2)
[2018-05-04] MEDS ORDERED: methylPREDNISolone NA SUCC 40 MG/1 ML VIAL IVPUSH SCH (10:00)
[2018-05-04] MEDS ORDERED: PT OWN MED DRAWER 7, Y5N ONE (10:23)
[2018-05-04] MEDS ORDERED: cefTRIAXone SODIUM 1 GM VIAL ONE (10:24)
[2018-05-04] MEDS ORDERED: DEXTROSE 5%-WATER - 50 ML IVPB ONE (10:24)
[2018-05-04] MEDS: VALPROATE SODIUM 250 MG/5 ML UNIT DOSE CUP GT SCH ×2 (10:28→21:39)
[2018-05-04] MEDS: LACTULOSE 20 GM/30 ML UDC (FOR ORAL USE ONLY) GT SCH (10:29)
[2018-05-04] MEDS: PHENobarbital 30 MG TABLET GT SCH ×2 (10:29→21:39)
[2018-05-04] MEDS: HEPARIN NA (PORCINE) 5,000 UNITS/ML 1ML VIAL SQ SCH ×2 (10:29→21:39)
[2018-05-04] MEDS: METOCLOPRAMIDE HCL 5 MG/5 ML UNIT DOSE CUP GT SCH ×4 (10:30→21:40)
[2018-05-04] MEDS: CEFTRIAXONE 1 GM in DEXTROSE 5%-WATER - 50 ML IVPB SCH (10:31)
[2018-05-04] MEDS: amLODIPine BESYLATE 2.5 MG TABLET (FP) GT SCH (10:31)
[2018-05-04] MEDS: ASCORBIC ACID 500 MG/5 ML UNIT DOSE CUP GT SCH ×2 (10:32→21:39)
[2018-05-04] MEDS: levETIRAcetam 500 MG/5 ML ORAL SOLUTION (UNIT-DOSE CUPS) GT SCH ×2 (10:32→21:39)
[2018-05-04] MEDS: TOPIRAMATE 200 MG TABLET (FP) GT SCH ×2 (10:33→21:40)
[2018-05-04] MEDS: METOPROLOL TARTRATE 50 MG TABLET (FP) GT SCH ×3 (10:34→21:39)
--- NOTE | 2018-05-04 12:07 | PN ---
Progress Note (short form) - Note Progress Note: Patient nonverbal. No fevers recorded. No acute events overnight. Intake & Output 05/01/18 05/02/18 05/03/18 05/04/18 23:59 23:59 23:59 23:59 Intake Total 360 780 320 Output Total 1 Balance -1 360 780 320 Weight 100 lb Last Vital Signs Temp Pulse Resp BP Pulse Ox 98.2 F 75 20 117/64 97 05/04/18 06:22 05/04/18 06:22 05/04/18 06:22 05/04/18 06:22 05/03/18 21:00 Active Medications Albuterol/Ipratropium (Duoneb -) 1 amp NEB Q4H PRN PRN Reason: SHORTNESS OF BREATH Amlodipine Besylate (Norvasc -) 2.5 mg GT DAILY [facility] Last Admin: 05/04/18 10:31 Dose: 2.5 mg Arformoterol Tartrate (Brovana (Restricted To Pulmonology/Resp) -) 1 amp NEB RBID [facility] Last Admin: 05/04/18 08:36 Dose: 1 amp Ascorbic Acid (Vitamin C Oral Solution -) 500 mg GT BID [facility] Last Admin: 05/04/18 10:32 Dose: 500 mg Atorvastatin Calcium (Lipitor -) 20 mg GT HS [facility] Budesonide (Pulmicort 0.25 Mg Nebulizer -) 1 amp NEB RBID [facility] Last Admin: 05/04/18 08:37 Dose: 1 amp Calcium Carbonate/Cholecalciferol (Os-Jamar 500+D -) 2 tab GT HS [facility] Heparin Sodium (Porcine) (Heparin -) 5,000 unit SQ BID [facility] Last Admin: 05/04/18 10:29 Dose: 5,000 unit Ceftriaxone Sodium 1 gm/ (Dextrose) 50 mls @ 100 mls/hr IVPB DAILY [facility]; Protocol Last Admin: 05/04/18 10:31 Dose: 100 mls/hr Lactulose (Cephulac (Oral Use)) 30 gm GT DAILY [facility] Last Admin: 05/04/18 10:29 Dose: 30 gm Levetiracetam (Keppra Oral Solution -) 1,500 mg GT BID [facility] Last Admin: 05/04/18 10:32 Dose: 1,500 mg Methylprednisolone Sodium Succinate (Solu-Medrol -) 40 mg IVPUSH BID [facility] Last Admin: 05/04/18 10:28 Dose: 40 mg Metoclopramide HCl (Reglan Oral Solution -) 5 mg GT QID [facility] Last Admin: 05/04/18 10:30 Dose: 5 mg Metoprolol Tartrate (Lopressor -) 50 mg GT BID [facility] Last Admin: 05/04/18 10:34 Dose: Not Given Phenobarbital (Phenobarbital -) 30 mg GT BID [facility] Last Admin: 05/04/18 10:29 Dose: 30 mg Topiramate (Topamax -) 200 mg GT BID [facility] Last Admin: 05/04/18 10:33 Dose: 200 mg Valproate Sodium (Depakene -) 750 mg GT BID [facility] Last Admin: 05/04/18 10:28 Dose: 750 mg Gen: NAD, breathing nonlabored Heart: RRR Lung: decreased breath sounds at the bases Abd: soft, nontender Ext: no edema Laboratory Results - last 24 hr 05/04/18 05/04/18 07:00 07:00 WBC 10.8 H RBC 4.27 Hgb 13.9 Hct 40.2 MCV 94.2 MCH 32.6 MCHC 34.6 RDW 12.9 Plt Count 283 MPV 8.0 Absolute Neuts (auto) 8.7 H Neutrophils % 80.9 Lymphocytes % 11.4 D Monocytes % 7.4 D Eosinophils % 0.1 Basophils % 0.2 Nucleated RBC % 0 Sodium 138 Potassium 4.0 Chloride 98 Carbon Dioxide 33 H Anion Gap 7 L BUN 16 Creatinine 0.3 L Creat Clearance w eGFR > 60 Random Glucose 108 H Calcium 8.9 Total Bilirubin 0.2 AST 6 L ALT 21 Alkaline Phosphatase 141 H Total Protein 6.5 Albumin 2.8 L A/P Acute COPD Exacerbation Pneumonia Anoxic Brain Injury Functional Quadriplegia Seizure Disorder - continue antibiotics - Medrol - inhaled bronchodilators - O2 to keep Spo2 >90% - aspiration precautions - DVT prophylaxis Dr Bella
--- NOTE | 2018-05-04 13:11 | PN ---
Progress Note, Physician History of Present Illness: Pt seen and examined, events noted, labs/imaging results reviewed. She is currently alert, without acute distress. - Current Medication List Current Medications: Active Medications Albuterol/Ipratropium (Duoneb -) 1 amp NEB Q4H PRN PRN Reason: SHORTNESS OF BREATH Amlodipine Besylate (Norvasc -) 2.5 mg GT DAILY [facility] Last Admin: 05/04/18 10:31 Dose: 2.5 mg Arformoterol Tartrate (Brovana (Restricted To Pulmonology/Resp) -) 1 amp NEB RBID [facility] Last Admin: 05/04/18 08:36 Dose: 1 amp Ascorbic Acid (Vitamin C Oral Solution -) 500 mg GT BID [facility] Last Admin: 05/04/18 10:32 Dose: 500 mg Atorvastatin Calcium (Lipitor -) 20 mg GT HS [facility] Budesonide (Pulmicort 0.25 Mg Nebulizer -) 1 amp NEB RBID [facility] Last Admin: 05/04/18 08:37 Dose: 1 amp Calcium Carbonate/Cholecalciferol (Os-Jamar 500+D -) 2 tab GT HS [facility] Heparin Sodium (Porcine) (Heparin -) 5,000 unit SQ BID [facility] Last Admin: 05/04/18 10:29 Dose: 5,000 unit Ceftriaxone Sodium 1 gm/ (Dextrose) 50 mls @ 100 mls/hr IVPB DAILY [facility]; Protocol Last Admin: 05/04/18 10:31 Dose: 100 mls/hr Lactulose (Cephulac (Oral Use)) 30 gm GT DAILY [facility] Last Admin: 05/04/18 10:29 Dose: 30 gm Levetiracetam (Keppra Oral Solution -) 1,500 mg GT BID [facility] Last Admin: 05/04/18 10:32 Dose: 1,500 mg Methylprednisolone Sodium Succinate (Solu-Medrol -) 40 mg IVPUSH BID [facility] Last Admin: 05/04/18 10:28 Dose: 40 mg Metoclopramide HCl (Reglan Oral Solution -) 5 mg GT QID [facility] Last Admin: 05/04/18 10:30 Dose: 5 mg Metoprolol Tartrate (Lopressor -) 50 mg GT BID [facility] Last Admin: 05/04/18 10:34 Dose: Not Given Phenobarbital (Phenobarbital -) 30 mg GT BID [facility] Last Admin: 05/04/18 10:29 Dose: 30 mg Topiramate (Topamax -) 200 mg GT BID [facility] Last Admin: 05/04/18 10:33 Dose: 200 mg Valproate Sodium (Depakene -) 750 mg GT BID [facility] Last Admin: 05/04/18 10:28 Dose: 750 mg - Objective Vital Signs: Vital Signs Temperature 98.2 F 05/04/18 06:22 Pulse Rate 75 05/04/18 06:22 Respiratory Rate 20 05/04/18 06:22 Blood Pressure 117/64 05/04/18 06:22 O2 Sat by Pulse Oximetry (%) 97 05/03/18 21:00 Constitutional: Yes: No Distress, Calm Cardiovascular: Yes: Regular Rate and Rhythm Respiratory: Yes: Diminished, Other (poor inspiratory effort) Gastrointestinal: Yes: Normal Bowel Sounds, Soft, Other (+GT) Neurological: Yes: Alert Labs: CBC, BMP 05/04/18 07:00 05/04/18 07:00 INR, PTT INR 1.02 (0.83-1.09) 04/29/18 12:43 - ....Imaging Chest X-ray: Report Reviewed Problem List - Problems (1) COPD exacerbation Code(s): J44.1 - CHRONIC OBSTRUCTIVE PULMONARY DISEASE W (ACUTE) EXACERBATION (2) Acute respiratory failure with hypoxia Code(s): J96.01 - ACUTE RESPIRATORY FAILURE WITH HYPOXIA (3) Anoxic brain damage Code(s): G93.1 - ANOXIC BRAIN DAMAGE, NOT ELSEWHERE CLASSIFIED (4) Functional quadriplegia Code(s): R53.2 - FUNCTIONAL QUADRIPLEGIA (5) HLD (hyperlipidemia) Code(s): E78.5 - HYPERLIPIDEMIA, UNSPECIFIED (6) HTN (hypertension) Code(s): I10 - ESSENTIAL (PRIMARY) HYPERTENSION (7) Seizure disorder Code(s): G40.909 - EPILEPSY, UNSP, NOT INTRACTABLE, WITHOUT STATUS EPILEPTICUS Assessment/Plan - plan to discontinue antibiotics after tomorrow's dose - Pt on bronchodilators/steroids - maintain on aspiration precautions wbc normal, pt afebrile Continue monitor
--- NOTE | 2018-05-04 15:28 | PN ---
Progress Note, Physician History of Present Illness: stable - Current Medication List Current Medications: Active Medications Albuterol/Ipratropium (Duoneb -) 1 amp NEB Q4H PRN PRN Reason: SHORTNESS OF BREATH Amlodipine Besylate (Norvasc -) 2.5 mg GT DAILY [facility] Last Admin: 05/04/18 10:31 Dose: 2.5 mg Arformoterol Tartrate (Brovana (Restricted To Pulmonology/Resp) -) 1 amp NEB RBID [facility] Last Admin: 05/04/18 08:36 Dose: 1 amp Ascorbic Acid (Vitamin C Oral Solution -) 500 mg GT BID [facility] Last Admin: 05/04/18 10:32 Dose: 500 mg Atorvastatin Calcium (Lipitor -) 20 mg GT HS [facility] Budesonide (Pulmicort 0.25 Mg Nebulizer -) 1 amp NEB RBID [facility] Last Admin: 05/04/18 08:37 Dose: 1 amp Calcium Carbonate/Cholecalciferol (Os-Jamar 500+D -) 2 tab GT HS [facility] Heparin Sodium (Porcine) (Heparin -) 5,000 unit SQ BID [facility] Last Admin: 05/04/18 10:29 Dose: 5,000 unit Ceftriaxone Sodium 1 gm/ (Dextrose) 50 mls @ 100 mls/hr IVPB DAILY [facility]; Protocol Last Admin: 05/04/18 10:31 Dose: 100 mls/hr Lactulose (Cephulac (Oral Use)) 30 gm GT DAILY [facility] Last Admin: 05/04/18 10:29 Dose: 30 gm Levetiracetam (Keppra Oral Solution -) 1,500 mg GT BID [facility] Last Admin: 05/04/18 10:32 Dose: 1,500 mg Methylprednisolone Sodium Succinate (Solu-Medrol -) 40 mg IVPUSH BID [facility] Last Admin: 05/04/18 10:28 Dose: 40 mg Metoclopramide HCl (Reglan Oral Solution -) 5 mg GT QID [facility] Last Admin: 05/04/18 13:45 Dose: 5 mg Metoprolol Tartrate (Lopressor -) 50 mg GT BID [facility] Last Admin: 05/04/18 13:52 Dose: 50 mg Phenobarbital (Phenobarbital -) 30 mg GT BID [facility] Last Admin: 05/04/18 10:29 Dose: 30 mg Topiramate (Topamax -) 200 mg GT BID [facility] Last Admin: 05/04/18 10:33 Dose: 200 mg Valproate Sodium (Depakene -) 750 mg GT BID [facility] Last Admin: 05/04/18 10:28 Dose: 750 mg - Objective Vital Signs: Vital Signs Temperature 98.6 F 05/04/18 13:42 Pulse Rate 98 H 05/04/18 13:42 Respiratory Rate 20 05/04/18 13:42 Blood Pressure 149/78 05/04/18 13:42 O2 Sat by Pulse Oximetry (%) 97 05/03/18 21:00 Constitutional: Yes: Calm HENT: Yes: Atraumatic Neck: Yes: Supple Cardiovascular: Yes: Regular Rate and Rhythm Respiratory: Yes: Rhonchi Gastrointestinal: Yes: Normal Bowel Sounds Extremities: Yes: Other (contracted) Edema: No Neurological: Yes: Other (awake) Labs: CBC, BMP 05/04/18 07:00 05/04/18 07:00 INR, PTT INR 1.02 (0.83-1.09) 04/29/18 12:43 Problem List - Problems (1) COPD exacerbation Assessment/Plan: iv steroids...taper duo nebs, on oxygen pulmonary eval..done Code(s): J44.1 - CHRONIC OBSTRUCTIVE PULMONARY DISEASE W (ACUTE) EXACERBATION (2) Acute respiratory failure with hypoxia Code(s): J96.01 - ACUTE RESPIRATORY FAILURE WITH HYPOXIA (3) Anoxic brain damage Code(s): G93.1 - ANOXIC BRAIN DAMAGE, NOT ELSEWHERE CLASSIFIED (4) Functional quadriplegia Code(s): R53.2 - FUNCTIONAL QUADRIPLEGIA (5) HLD (hyperlipidemia) Assessment/Plan: on meds Code(s): E78.5 - HYPERLIPIDEMIA, UNSPECIFIED (6) HTN (hypertension) Assessment/Plan: on meds monitor bp Code(s): I10 - ESSENTIAL (PRIMARY) HYPERTENSION (7) Scoliosis deformity of spine Code(s): M41.9 - SCOLIOSIS, UNSPECIFIED (8) Seizure disorder Assessment/Plan: continue home meds Code(s): G40.909 - EPILEPSY, UNSP, NOT INTRACTABLE, WITHOUT STATUS EPILEPTICUS (9) Pneumonia Assessment/Plan: possible aspiration on abx id consult Code(s): J18.9 - PNEUMONIA, UNSPECIFIED ORGANISM (10) Feeding by G-tube Code(s): Z93.1 - GASTROSTOMY STATUS
[2018-05-04] MEDS: CALCIUM 500MG/VIT-D 200 UNITS COMBO TABLET (FP) GT SCH (21:39)
[2018-05-04] MEDS: ATORVASTATIN CA 20 MG TABLET (FP) GT SCH (21:40)
[2018-05-04] MEDS: methylPREDNISolone NA SUCC 40 MG/1 ML VIAL IVPUSH SCH (21:48)
[2018-05-05] MEDS: ARFORMOTEROL TARTRATE 15 MCG/2 ML VIAL NEB SCH ×2 (08:23→20:52)
[2018-05-05] MEDS: BUDESONIDE 0.25 MG/2ML INH SUSP VIAL NEB SCH ×2 (08:24→20:30)
[2018-05-05] MEDS ORDERED: DEXTROSE 5%-WATER - 50 ML IVPB ONE (09:11)
[2018-05-05] MEDS ORDERED: cefTRIAXone SODIUM 1 GM VIAL ONE (09:11)
[2018-05-05] MEDS ORDERED: PT OWN MED DRAWER 7, Y5N ONE (09:11)
[2018-05-05] MEDS: CEFTRIAXONE 1 GM in DEXTROSE 5%-WATER - 50 ML IVPB SCH (09:21)
[2018-05-05] MEDS: PHENobarbital 30 MG TABLET GT SCH ×2 (09:24→22:07)
[2018-05-05] MEDS: amLODIPine BESYLATE 2.5 MG TABLET (FP) GT SCH (09:25)
[2018-05-05] MEDS: TOPIRAMATE 200 MG TABLET (FP) GT SCH ×2 (09:25→22:06)
[2018-05-05] MEDS: VALPROATE SODIUM 250 MG/5 ML UNIT DOSE CUP GT SCH ×2 (09:25→22:05)
[2018-05-05] MEDS: levETIRAcetam 500 MG/5 ML ORAL SOLUTION (UNIT-DOSE CUPS) GT SCH ×2 (09:25→22:06)
[2018-05-05] MEDS: LACTULOSE 20 GM/30 ML UDC (FOR ORAL USE ONLY) GT SCH (09:26)
[2018-05-05] MEDS: METOCLOPRAMIDE HCL 5 MG/5 ML UNIT DOSE CUP GT SCH ×4 (09:26→22:05)
[2018-05-05] MEDS: methylPREDNISolone NA SUCC 40 MG/1 ML VIAL IVPUSH SCH (09:27)
[2018-05-05] MEDS: HEPARIN NA (PORCINE) 5,000 UNITS/ML 1ML VIAL SQ SCH ×2 (09:27→22:06)
[2018-05-05] MEDS: ASCORBIC ACID 500 MG/5 ML UNIT DOSE CUP GT SCH ×2 (09:28→22:06)
--- NOTE | 2018-05-05 11:26 | PN ---
Progress Note (short form) - Note Progress Note: Patient nonverbal. Afebrile. No acute events overnight. Intake & Output 05/02/18 05/03/18 05/04/18 05/05/18 23:59 23:59 23:59 23:59 Intake Total 360 780 960 480 Balance 360 780 960 480 Last Vital Signs Temp Pulse Resp BP Pulse Ox 98.7 F 70 18 115/62 97 05/05/18 06:06 05/05/18 06:06 05/05/18 06:06 05/05/18 06:06 05/04/18 21:00 Active Medications Albuterol/Ipratropium (Duoneb -) 1 amp NEB Q4H PRN PRN Reason: SHORTNESS OF BREATH Amlodipine Besylate (Norvasc -) 2.5 mg GT DAILY [facility] Last Admin: 05/05/18 09:25 Dose: 2.5 mg Arformoterol Tartrate (Brovana (Restricted To Pulmonology/Resp) -) 1 amp NEB RBID [facility] Last Admin: 05/05/18 08:23 Dose: 1 amp Ascorbic Acid (Vitamin C Oral Solution -) 500 mg GT BID [facility] Last Admin: 05/05/18 09:28 Dose: 500 mg Atorvastatin Calcium (Lipitor -) 20 mg GT HS [facility] Last Admin: 05/04/18 21:40 Dose: 20 mg Budesonide (Pulmicort 0.25 Mg Nebulizer -) 1 amp NEB RBID [facility] Last Admin: 05/05/18 08:24 Dose: 1 amp Calcium Carbonate/Cholecalciferol (Os-Jamar 500+D -) 2 tab GT HS [facility] Last Admin: 05/04/18 21:39 Dose: 2 tab Heparin Sodium (Porcine) (Heparin -) 5,000 unit SQ BID [facility] Last Admin: 05/05/18 09:27 Dose: 5,000 unit Ceftriaxone Sodium 1 gm/ (Dextrose) 50 mls @ 100 mls/hr IVPB DAILY [facility]; Protocol Last Admin: 05/05/18 09:21 Dose: 100 mls/hr Lactulose (Cephulac (Oral Use)) 30 gm GT DAILY [facility] Last Admin: 05/05/18 09:26 Dose: 30 gm Levetiracetam (Keppra Oral Solution -) 1,500 mg GT BID [facility] Last Admin: 05/05/18 09:25 Dose: 1,500 mg Methylprednisolone Sodium Succinate (Solu-Medrol -) 20 mg IVPUSH BID [facility] Last Admin: 05/05/18 09:27 Dose: 20 mg Metoclopramide HCl (Reglan Oral Solution -) 5 mg GT QID [facility] Last Admin: 05/05/18 09:26 Dose: 5 mg Metoprolol Tartrate (Lopressor -) 50 mg GT BID [facility] Last Admin: 05/04/18 21:39 Dose: 50 mg Phenobarbital (Phenobarbital -) 30 mg GT BID [facility] Last Admin: 05/05/18 09:24 Dose: 30 mg Topiramate (Topamax -) 200 mg GT BID [facility] Last Admin: 05/05/18 09:25 Dose: 200 mg Valproate Sodium (Depakene -) 750 mg GT BID [facility] Last Admin: 05/05/18 09:25 Dose: 750 mg Gen: NAD, breathing nonlabored Heart: RRR Lung: decreased breath sounds at the bases Abd: soft, nontender Ext: no edema A/P Acute COPD Exacerbation Pneumonia Anoxic Brain Injury Functional Quadriplegia Seizure Disorder - continue antibiotics - Medrol - inhaled bronchodilators - O2 to keep Spo2 >90% - aspiration precautions - DVT prophylaxis Dr Bella
[2018-05-05] MEDS: METOPROLOL TARTRATE 50 MG TABLET (FP) GT SCH ×2 (12:14→22:06)
--- NOTE | 2018-05-05 15:31 | PN ---
Progress Note, Physician History of Present Illness: Pt is alert, afebrile. No new events. - Current Medication List Current Medications: Active Medications Albuterol/Ipratropium (Duoneb -) 1 amp NEB Q4H PRN PRN Reason: SHORTNESS OF BREATH Amlodipine Besylate (Norvasc -) 2.5 mg GT DAILY [facility] Last Admin: 05/05/18 09:25 Dose: 2.5 mg Arformoterol Tartrate (Brovana (Restricted To Pulmonology/Resp) -) 1 amp NEB RBID [facility] Last Admin: 05/05/18 08:23 Dose: 1 amp Ascorbic Acid (Vitamin C Oral Solution -) 500 mg GT BID [facility] Last Admin: 05/05/18 09:28 Dose: 500 mg Atorvastatin Calcium (Lipitor -) 20 mg GT HS [facility] Last Admin: 05/04/18 21:40 Dose: 20 mg Budesonide (Pulmicort 0.25 Mg Nebulizer -) 1 amp NEB RBID [facility] Last Admin: 05/05/18 08:24 Dose: 1 amp Calcium Carbonate/Cholecalciferol (Os-Jamar 500+D -) 2 tab GT HS [facility] Last Admin: 05/04/18 21:39 Dose: 2 tab Heparin Sodium (Porcine) (Heparin -) 5,000 unit SQ BID [facility] Last Admin: 05/05/18 09:27 Dose: 5,000 unit Lactulose (Cephulac (Oral Use)) 30 gm GT DAILY [facility] Last Admin: 05/05/18 09:26 Dose: 30 gm Levetiracetam (Keppra Oral Solution -) 1,500 mg GT BID [facility] Last Admin: 05/05/18 09:25 Dose: 1,500 mg Methylprednisolone Sodium Succinate (Solu-Medrol -) 20 mg IVPUSH BID [facility] Last Admin: 05/05/18 09:27 Dose: 20 mg Metoclopramide HCl (Reglan Oral Solution -) 5 mg GT QID [facility] Last Admin: 05/05/18 13:33 Dose: 5 mg Metoprolol Tartrate (Lopressor -) 50 mg GT BID [facility] Last Admin: 05/05/18 12:14 Dose: 50 mg Phenobarbital (Phenobarbital -) 30 mg GT BID [facility] Last Admin: 05/05/18 09:24 Dose: 30 mg Topiramate (Topamax -) 200 mg GT BID [facility] Last Admin: 05/05/18 09:25 Dose: 200 mg Valproate Sodium (Depakene -) 750 mg GT BID [facility] Last Admin: 05/05/18 09:25 Dose: 750 mg - Objective Vital Signs: Vital Signs Temperature 98 F 05/05/18 14:42 Pulse Rate 71 05/05/18 14:42 Respiratory Rate 20 05/05/18 14:42 Blood Pressure 121/84 05/05/18 14:42 O2 Sat by Pulse Oximetry (%) 97 05/04/18 21:00 Constitutional: Yes: No Distress Cardiovascular: Yes: Regular Rate and Rhythm Respiratory: Yes: Diminished (poor inspiratory effort) Gastrointestinal: Yes: Normal Bowel Sounds, Soft Extremities: Yes: Other (contracted) Integumentary: Yes: WNL Labs: CBC, BMP 05/04/18 07:00 05/04/18 07:00 INR, PTT INR 1.02 (0.83-1.09) 04/29/18 12:43 Problem List - Problems (1) COPD exacerbation Code(s): J44.1 - CHRONIC OBSTRUCTIVE PULMONARY DISEASE W (ACUTE) EXACERBATION (2) Acute respiratory failure with hypoxia Code(s): J96.01 - ACUTE RESPIRATORY FAILURE WITH HYPOXIA (3) Anoxic brain damage Code(s): G93.1 - ANOXIC BRAIN DAMAGE, NOT ELSEWHERE CLASSIFIED (4) Functional quadriplegia Code(s): R53.2 - FUNCTIONAL QUADRIPLEGIA (5) HLD (hyperlipidemia) Code(s): E78.5 - HYPERLIPIDEMIA, UNSPECIFIED (6) HTN (hypertension) Code(s): I10 - ESSENTIAL (PRIMARY) HYPERTENSION (7) Seizure disorder Code(s): G40.909 - EPILEPSY, UNSP, NOT INTRACTABLE, WITHOUT STATUS EPILEPTICUS Assessment/Plan - d/c antibiotics and continue to monitor - Pt on bronchodilators/steroids - maintain on aspiration precautions wbc normal, pt afebrile
--- NOTE | 2018-05-05 17:38 | PN ---
Progress Note, Physician History of Present Illness: stable - Current Medication List Current Medications: Active Medications Albuterol/Ipratropium (Duoneb -) 1 amp NEB Q4H PRN PRN Reason: SHORTNESS OF BREATH Amlodipine Besylate (Norvasc -) 2.5 mg GT DAILY [facility] Last Admin: 05/05/18 09:25 Dose: 2.5 mg Arformoterol Tartrate (Brovana (Restricted To Pulmonology/Resp) -) 1 amp NEB RBID [facility] Last Admin: 05/05/18 08:23 Dose: 1 amp Ascorbic Acid (Vitamin C Oral Solution -) 500 mg GT BID [facility] Last Admin: 05/05/18 09:28 Dose: 500 mg Atorvastatin Calcium (Lipitor -) 20 mg GT HS [facility] Last Admin: 05/04/18 21:40 Dose: 20 mg Budesonide (Pulmicort 0.25 Mg Nebulizer -) 1 amp NEB RBID [facility] Last Admin: 05/05/18 08:24 Dose: 1 amp Calcium Carbonate/Cholecalciferol (Os-Jamar 500+D -) 2 tab GT HS [facility] Last Admin: 05/04/18 21:39 Dose: 2 tab Heparin Sodium (Porcine) (Heparin -) 5,000 unit SQ BID [facility] Last Admin: 05/05/18 09:27 Dose: 5,000 unit Lactulose (Cephulac (Oral Use)) 30 gm GT DAILY [facility] Last Admin: 05/05/18 09:26 Dose: 30 gm Levetiracetam (Keppra Oral Solution -) 1,500 mg GT BID [facility] Last Admin: 05/05/18 09:25 Dose: 1,500 mg Methylprednisolone Sodium Succinate (Solu-Medrol -) 20 mg IVPUSH DAILY [facility] Metoclopramide HCl (Reglan Oral Solution -) 5 mg GT QID [facility] Last Admin: 05/05/18 13:33 Dose: 5 mg Metoprolol Tartrate (Lopressor -) 50 mg GT BID [facility] Last Admin: 05/05/18 12:14 Dose: 50 mg Phenobarbital (Phenobarbital -) 30 mg GT BID [facility] Last Admin: 05/05/18 09:24 Dose: 30 mg Topiramate (Topamax -) 200 mg GT BID [facility] Last Admin: 05/05/18 09:25 Dose: 200 mg Valproate Sodium (Depakene -) 750 mg GT BID [facility] Last Admin: 05/05/18 09:25 Dose: 750 mg - Objective Vital Signs: Vital Signs Temperature 98 F 05/05/18 14:42 Pulse Rate 71 05/05/18 14:42 Respiratory Rate 20 05/05/18 14:42 Blood Pressure 121/84 05/05/18 14:42 O2 Sat by Pulse Oximetry (%) 97 05/04/18 21:00 Constitutional: Yes: Calm HENT: Yes: Atraumatic Neck: Yes: Supple Cardiovascular: Yes: Regular Rate and Rhythm Respiratory: Yes: Rhonchi Gastrointestinal: Yes: Normal Bowel Sounds Edema: No Neurological: Yes: Other (awake) Labs: CBC, BMP 05/04/18 07:00 05/04/18 07:00 INR, PTT INR 1.02 (0.83-1.09) 04/29/18 12:43 Problem List - Problems (1) COPD exacerbation Assessment/Plan: iv steroids...taper duo nebs, on oxygen pulmonary eval..done Code(s): J44.1 - CHRONIC OBSTRUCTIVE PULMONARY DISEASE W (ACUTE) EXACERBATION (2) Acute respiratory failure with hypoxia Code(s): J96.01 - ACUTE RESPIRATORY FAILURE WITH HYPOXIA (3) Anoxic brain damage Code(s): G93.1 - ANOXIC BRAIN DAMAGE, NOT ELSEWHERE CLASSIFIED (4) Functional quadriplegia Code(s): R53.2 - FUNCTIONAL QUADRIPLEGIA (5) HLD (hyperlipidemia) Assessment/Plan: on meds Code(s): E78.5 - HYPERLIPIDEMIA, UNSPECIFIED (6) HTN (hypertension) Assessment/Plan: on meds monitor bp Code(s): I10 - ESSENTIAL (PRIMARY) HYPERTENSION (7) Scoliosis deformity of spine Code(s): M41.9 - SCOLIOSIS, UNSPECIFIED (8) Seizure disorder Assessment/Plan: continue home meds Code(s): G40.909 - EPILEPSY, UNSP, NOT INTRACTABLE, WITHOUT STATUS EPILEPTICUS (9) Pneumonia Code(s): J18.9 - PNEUMONIA, UNSPECIFIED ORGANISM (10) Feeding by G-tube Code(s): Z93.1 - GASTROSTOMY STATUS
[2018-05-05] MEDS: ATORVASTATIN CA 20 MG TABLET (FP) GT SCH (22:06)
[2018-05-05] MEDS: CALCIUM 500MG/VIT-D 200 UNITS COMBO TABLET (FP) GT SCH (22:06)
[2018-05-06] MEDS: ARFORMOTEROL TARTRATE 15 MCG/2 ML VIAL NEB SCH ×2 (07:05→20:51)
[2018-05-06] MEDS ORDERED: PT OWN MED DRAWER 7, Y5N ONE ×4 (07:08→20:44)
[2018-05-06] MEDS: BUDESONIDE 0.25 MG/2ML INH SUSP VIAL NEB SCH ×2 (07:15→20:52)
[2018-05-06 08:24] LABS: BASO % 0.2 % (0-2.0); EOS % 1.8 % (0-4.5); HEMATOCRIT 39.8 % (32.4-45.2); HEMOGLOBIN 13.2 GM/dL (10.7-15.3); LYMPH % 13.3 % (8-40); MCH 31.4 pg (25.7-33.7); MCHC 33.2 g/dl (32.0-36.0); MEAN CELL VOLUME 94.6 fl (80-96); MEAN PLT VOLUME 8.2 fl (7.5-11.1); MONO % 8.9 % (3.8-10.2); NEUT % 75.8 % (42.8-82.8); PLATELET COUNT 281 K/MM3 (134-434); RBC 4.21 M/mm3 (3.60-5.2); RDW 13.1 % (11.6-15.6); WHITE BLOOD COUNT 13.1 K/mm3 (4.0-10.0)
[2018-05-06 08:51] LABS: ALBUMIN 2.5 g/dl (3.4-5.0); ALK PHOS 139 U/L (45-117); ANION GAP 4 MMOL/L (8-16); BILIRUBIN,TOTAL 0.3 mg/dL (0.2-1); BLOOD UREA NITROGEN 15 mg/dL (7-18); CHLORIDE 96 mmol/L (98-107); CO2 40 mmol/L (21-32); CREATININE 0.3 mg/dL (0.55-1.3); GLUCOSE,RANDOM 82 mg/dL (74-106); POTASSIUM 3.6 mmol/L (3.5-5.1); SGOT/AST 12 U/L (15-37); SGPT/ALT 20 U/L (13-61); SODIUM 139 mmol/L (136-145); TOT PROT 5.9 g/dl (6.4-8.2)
[2018-05-06] MEDS: methylPREDNISolone NA SUCC 40 MG/1 ML VIAL IVPUSH SCH ×2 (11:08→11:32)
[2018-05-06] MEDS: METOCLOPRAMIDE HCL 5 MG/5 ML UNIT DOSE CUP GT SCH ×4 (11:09→22:08)
[2018-05-06] MEDS: HEPARIN NA (PORCINE) 5,000 UNITS/ML 1ML VIAL SQ SCH ×2 (11:09→22:07)
[2018-05-06] MEDS: METOPROLOL TARTRATE 50 MG TABLET (FP) GT SCH ×2 (11:10→22:08)
[2018-05-06] MEDS: LACTULOSE 20 GM/30 ML UDC (FOR ORAL USE ONLY) GT SCH (11:11)
[2018-05-06] MEDS: amLODIPine BESYLATE 2.5 MG TABLET (FP) GT SCH (11:11)
[2018-05-06] MEDS: PHENobarbital 30 MG TABLET GT SCH ×2 (11:11→22:08)
[2018-05-06] MEDS: VALPROATE SODIUM 250 MG/5 ML UNIT DOSE CUP GT SCH ×2 (11:12→22:07)
[2018-05-06] MEDS: ASCORBIC ACID 500 MG/5 ML UNIT DOSE CUP GT SCH ×2 (11:12→22:08)
[2018-05-06] MEDS: levETIRAcetam 500 MG/5 ML ORAL SOLUTION (UNIT-DOSE CUPS) GT SCH ×2 (11:12→22:08)
[2018-05-06] MEDS: TOPIRAMATE 200 MG TABLET (FP) GT SCH ×2 (11:13→22:08)
--- NOTE | 2018-05-06 12:35 | PN ---
Progress Note (short form) - Note Progress Note: Patient nonverbal. NAD. Afebrile. No acute events overnight. Intake & Output 05/03/18 05/04/18 05/05/18 05/06/18 23:59 23:59 23:59 23:59 Intake Total 554 030 7624 540 Balance 517 835 0413 540 Last Vital Signs Temp Pulse Resp BP Pulse Ox 97.9 F 75 20 128/61 98 05/06/18 11:48 05/06/18 11:07 05/06/18 11:07 05/06/18 11:07 05/05/18 21:00 Active Medications Albuterol/Ipratropium (Duoneb -) 1 amp NEB Q4H PRN PRN Reason: SHORTNESS OF BREATH Amlodipine Besylate (Norvasc -) 2.5 mg GT DAILY [facility] Last Admin: 05/06/18 11:11 Dose: 2.5 mg Arformoterol Tartrate (Brovana (Restricted To Pulmonology/Resp) -) 1 amp NEB RBID [facility] Last Admin: 05/06/18 07:05 Dose: 1 amp Ascorbic Acid (Vitamin C Oral Solution -) 500 mg GT BID [facility] Last Admin: 05/06/18 11:12 Dose: 500 mg Atorvastatin Calcium (Lipitor -) 20 mg GT HS [facility] Last Admin: 05/05/18 22:06 Dose: 20 mg Budesonide (Pulmicort 0.25 Mg Nebulizer -) 1 amp NEB RBID [facility] Last Admin: 05/06/18 07:15 Dose: 1 amp Calcium Carbonate/Cholecalciferol (Os-Jamar 500+D -) 2 tab GT HS [facility] Last Admin: 05/05/18 22:06 Dose: 2 tab Heparin Sodium (Porcine) (Heparin -) 5,000 unit SQ BID [facility] Last Admin: 05/06/18 11:09 Dose: 5,000 unit Lactulose (Cephulac (Oral Use)) 30 gm GT DAILY [facility] Last Admin: 05/06/18 11:11 Dose: 30 gm Levetiracetam (Keppra Oral Solution -) 1,500 mg GT BID [facility] Last Admin: 05/06/18 11:12 Dose: 1,500 mg Methylprednisolone Sodium Succinate (Solu-Medrol -) 20 mg IVPUSH DAILY [facility] Last Admin: 05/06/18 11:32 Dose: Not Given Metoclopramide HCl (Reglan Oral Solution -) 5 mg GT QID [facility] Last Admin: 05/06/18 11:09 Dose: 5 mg Metoprolol Tartrate (Lopressor -) 50 mg GT BID [facility] Last Admin: 05/06/18 11:10 Dose: 50 mg Phenobarbital (Phenobarbital -) 30 mg GT BID [facility] Last Admin: 05/06/18 11:11 Dose: 30 mg Topiramate (Topamax -) 200 mg GT BID [facility] Last Admin: 05/06/18 11:13 Dose: 200 mg Valproate Sodium (Depakene -) 750 mg GT BID [facility] Last Admin: 05/06/18 11:12 Dose: 750 mg Gen: NAD, breathing nonlabored Heart: RRR Lung: decreased breath sounds at the bases Abd: soft, nontender Ext: no edema Laboratory Results - last 24 hr 05/06/18 05/06/18 07:35 07:35 WBC 13.1 H RBC 4.21 Hgb 13.2 Hct 39.8 MCV 94.6 MCH 31.4 MCHC 33.2 RDW 13.1 Plt Count 281 MPV 8.2 Absolute Neuts (auto) 9.9 H Neutrophils % 75.8 Lymphocytes % 13.3 Monocytes % 8.9 Eosinophils % 1.8 D Basophils % 0.2 Nucleated RBC % 0 Sodium 139 Potassium 3.6 Chloride 96 L Carbon Dioxide 40 H Anion Gap 4 L BUN 15 Creatinine 0.3 L Creat Clearance w eGFR > 60 Random Glucose 82 Calcium 9.0 Total Bilirubin 0.3 AST 12 L ALT 20 Alkaline Phosphatase 139 H Total Protein 5.9 L Albumin 2.5 L A/P Acute COPD Exacerbation Pneumonia Anoxic Brain Injury Functional Quadriplegia Seizure Disorder - continue antibiotics - Monitor off systemic steroids - Inhaled bronchodilators - O2 to keep Spo2 >90% - aspiration precautions - DVT prophylaxis Dr Bella
--- NOTE | 2018-05-06 14:18 | PN ---
Progress Note, Physician History of Present Illness: stable no new issues off of abx - Current Medication List Current Medications: Active Medications Albuterol/Ipratropium (Duoneb -) 1 amp NEB Q4H PRN PRN Reason: SHORTNESS OF BREATH Amlodipine Besylate (Norvasc -) 2.5 mg GT DAILY [facility] Last Admin: 05/06/18 11:11 Dose: 2.5 mg Arformoterol Tartrate (Brovana (Restricted To Pulmonology/Resp) -) 1 amp NEB RBID [facility] Last Admin: 05/06/18 07:05 Dose: 1 amp Ascorbic Acid (Vitamin C Oral Solution -) 500 mg GT BID [facility] Last Admin: 05/06/18 11:12 Dose: 500 mg Atorvastatin Calcium (Lipitor -) 20 mg GT HS [facility] Last Admin: 05/05/18 22:06 Dose: 20 mg Budesonide (Pulmicort 0.25 Mg Nebulizer -) 1 amp NEB RBID [facility] Last Admin: 05/06/18 07:15 Dose: 1 amp Calcium Carbonate/Cholecalciferol (Os-Jamar 500+D -) 2 tab GT HS [facility] Last Admin: 05/05/18 22:06 Dose: 2 tab Heparin Sodium (Porcine) (Heparin -) 5,000 unit SQ BID [facility] Last Admin: 05/06/18 11:09 Dose: 5,000 unit Lactulose (Cephulac (Oral Use)) 30 gm GT DAILY [facility] Last Admin: 05/06/18 11:11 Dose: 30 gm Levetiracetam (Keppra Oral Solution -) 1,500 mg GT BID [facility] Last Admin: 05/06/18 11:12 Dose: 1,500 mg Metoclopramide HCl (Reglan Oral Solution -) 5 mg GT QID [facility] Last Admin: 05/06/18 11:09 Dose: 5 mg Metoprolol Tartrate (Lopressor -) 50 mg GT BID [facility] Last Admin: 05/06/18 11:10 Dose: 50 mg Phenobarbital (Phenobarbital -) 30 mg GT BID [facility] Last Admin: 05/06/18 11:11 Dose: 30 mg Topiramate (Topamax -) 200 mg GT BID [facility] Last Admin: 05/06/18 11:13 Dose: 200 mg Valproate Sodium (Depakene -) 750 mg GT BID [facility] Last Admin: 05/06/18 11:12 Dose: 750 mg - Objective Vital Signs: Vital Signs Temperature 97.9 F 05/06/18 11:48 Pulse Rate 75 05/06/18 11:07 Respiratory Rate 20 05/06/18 11:07 Blood Pressure 128/61 05/06/18 11:07 O2 Sat by Pulse Oximetry (%) 98 05/05/18 21:00 Constitutional: Yes: No Distress, Calm Cardiovascular: Yes: Regular Rate and Rhythm Respiratory: Yes: Regular, CTA Bilaterally Gastrointestinal: Yes: Normal Bowel Sounds, Soft Musculoskeletal: Yes: WNL Extremities: Yes: Other Neurological: Yes: Alert, Other Labs: CBC, BMP 05/06/18 07:35 05/06/18 07:35 INR, PTT INR 1.02 (0.83-1.09) 04/29/18 12:43 Assessment/Plan Problem List - Problems (1) COPD exacerbation Code(s): J44.1 - CHRONIC OBSTRUCTIVE PULMONARY DISEASE W (ACUTE) EXACERBATION (2) Acute respiratory failure with hypoxia Code(s): J96.01 - ACUTE RESPIRATORY FAILURE WITH HYPOXIA (3) Anoxic brain damage Code(s): G93.1 - ANOXIC BRAIN DAMAGE, NOT ELSEWHERE CLASSIFIED (4) HLD (hyperlipidemia) Code(s): E78.5 - HYPERLIPIDEMIA, UNSPECIFIED (5) HTN (hypertension) Code(s): I10 - ESSENTIAL (PRIMARY) HYPERTENSION (6) Seizure disorder Code(s): G40.909 - EPILEPSY, UNSP, NOT INTRACTABLE, WITHOUT STATUS EPILEPTICUS patient could very well have aspiration issues plan asp precautions continue current mgmt rest as per the team
--- NOTE | 2018-05-06 15:01 | PN ---
Progress Note, Physician History of Present Illness: stable - Current Medication List Current Medications: Active Medications Albuterol/Ipratropium (Duoneb -) 1 amp NEB Q4H PRN PRN Reason: SHORTNESS OF BREATH Amlodipine Besylate (Norvasc -) 2.5 mg GT DAILY [facility] Last Admin: 05/06/18 11:11 Dose: 2.5 mg Arformoterol Tartrate (Brovana (Restricted To Pulmonology/Resp) -) 1 amp NEB RBID [facility] Last Admin: 05/06/18 07:05 Dose: 1 amp Ascorbic Acid (Vitamin C Oral Solution -) 500 mg GT BID [facility] Last Admin: 05/06/18 11:12 Dose: 500 mg Atorvastatin Calcium (Lipitor -) 20 mg GT HS [facility] Last Admin: 05/05/18 22:06 Dose: 20 mg Budesonide (Pulmicort 0.25 Mg Nebulizer -) 1 amp NEB RBID [facility] Last Admin: 05/06/18 07:15 Dose: 1 amp Calcium Carbonate/Cholecalciferol (Os-Jamar 500+D -) 2 tab GT HS [facility] Last Admin: 05/05/18 22:06 Dose: 2 tab Heparin Sodium (Porcine) (Heparin -) 5,000 unit SQ BID [facility] Last Admin: 05/06/18 11:09 Dose: 5,000 unit Lactulose (Cephulac (Oral Use)) 30 gm GT DAILY [facility] Last Admin: 05/06/18 11:11 Dose: 30 gm Levetiracetam (Keppra Oral Solution -) 1,500 mg GT BID [facility] Last Admin: 05/06/18 11:12 Dose: 1,500 mg Metoclopramide HCl (Reglan Oral Solution -) 5 mg GT QID [facility] Last Admin: 05/06/18 11:09 Dose: 5 mg Metoprolol Tartrate (Lopressor -) 50 mg GT BID [facility] Last Admin: 05/06/18 11:10 Dose: 50 mg Phenobarbital (Phenobarbital -) 30 mg GT BID [facility] Last Admin: 05/06/18 11:11 Dose: 30 mg Topiramate (Topamax -) 200 mg GT BID [facility] Last Admin: 05/06/18 11:13 Dose: 200 mg Valproate Sodium (Depakene -) 750 mg GT BID [facility] Last Admin: 05/06/18 11:12 Dose: 750 mg - Objective Vital Signs: Vital Signs Temperature 98.9 F 05/06/18 14:52 Pulse Rate 75 05/06/18 11:07 Respiratory Rate 20 05/06/18 14:52 Blood Pressure 126/72 05/06/18 14:52 O2 Sat by Pulse Oximetry (%) 98 05/05/18 21:00 HENT: Yes: WNL Neck: Yes: Supple Cardiovascular: Yes: Regular Rate and Rhythm Respiratory: Yes: Rhonchi Gastrointestinal: Yes: Normal Bowel Sounds Extremities: Yes: WNL Edema: No Neurological: Yes: Alert, Oriented Labs: CBC, BMP 05/06/18 07:35 05/06/18 07:35 INR, PTT INR 1.02 (0.83-1.09) 04/29/18 12:43 Problem List - Problems (1) COPD exacerbation Assessment/Plan: iv steroids...taper duo nebs, on oxygen pulmonary eval..done Code(s): J44.1 - CHRONIC OBSTRUCTIVE PULMONARY DISEASE W (ACUTE) EXACERBATION (2) Acute respiratory failure with hypoxia Code(s): J96.01 - ACUTE RESPIRATORY FAILURE WITH HYPOXIA (3) Anoxic brain damage Code(s): G93.1 - ANOXIC BRAIN DAMAGE, NOT ELSEWHERE CLASSIFIED (4) Functional quadriplegia Code(s): R53.2 - FUNCTIONAL QUADRIPLEGIA (5) HLD (hyperlipidemia) Assessment/Plan: on meds Code(s): E78.5 - HYPERLIPIDEMIA, UNSPECIFIED (6) HTN (hypertension) Assessment/Plan: on meds monitor bp Code(s): I10 - ESSENTIAL (PRIMARY) HYPERTENSION (7) Scoliosis deformity of spine Code(s): M41.9 - SCOLIOSIS, UNSPECIFIED (8) Seizure disorder Code(s): G40.909 - EPILEPSY, UNSP, NOT INTRACTABLE, WITHOUT STATUS EPILEPTICUS (9) Pneumonia Assessment/Plan: abx completed Code(s): J18.9 - PNEUMONIA, UNSPECIFIED ORGANISM (10) Feeding by G-tube Code(s): Z93.1 - GASTROSTOMY STATUS
[2018-05-06] MEDS: CALCIUM 500MG/VIT-D 200 UNITS COMBO TABLET (FP) GT SCH (22:08)
[2018-05-06] MEDS: ATORVASTATIN CA 20 MG TABLET (FP) GT SCH (22:08)
[2018-05-07] MEDS ORDERED: PT OWN MED DRAWER 7, Y5N ONE ×2 (07:49→10:07)
[2018-05-07] MEDS ORDERED: AMINO ACIDS/PROTEIN HYDROLYS 30 ML LIQUID.PKT PO SCH (08:00)
[2018-05-07] MEDS: ARFORMOTEROL TARTRATE 15 MCG/2 ML VIAL NEB SCH (08:06)
[2018-05-07] MEDS: BUDESONIDE 0.25 MG/2ML INH SUSP VIAL NEB SCH (08:06)
[2018-05-07] MEDS: VALPROATE SODIUM 250 MG/5 ML UNIT DOSE CUP GT SCH ×2 (10:09→10:12)
[2018-05-07] MEDS: METOCLOPRAMIDE HCL 5 MG/5 ML UNIT DOSE CUP GT SCH ×3 (10:10→14:44)
[2018-05-07] MEDS: levETIRAcetam 500 MG/5 ML ORAL SOLUTION (UNIT-DOSE CUPS) GT SCH (10:12)
[2018-05-07] MEDS: ASCORBIC ACID 500 MG/5 ML UNIT DOSE CUP GT SCH (10:12)
[2018-05-07] MEDS: LACTULOSE 20 GM/30 ML UDC (FOR ORAL USE ONLY) GT SCH (10:13)
[2018-05-07] MEDS: TOPIRAMATE 200 MG TABLET (FP) GT SCH (10:14)
[2018-05-07] MEDS: METOPROLOL TARTRATE 50 MG TABLET (FP) GT SCH (10:30)
[2018-05-07] MEDS: HEPARIN NA (PORCINE) 5,000 UNITS/ML 1ML VIAL SQ SCH (10:30)
[2018-05-07] MEDS: amLODIPine BESYLATE 2.5 MG TABLET (FP) GT SCH (10:31)
--- NOTE | 2018-05-07 11:25 | PN ---
Progress Note (short form) - Note Progress Note: Patient nonverbal. NAD. Afebrile. No acute events overnight. Intake & Output 05/04/18 05/05/18 05/06/18 05/07/18 23:59 23:59 23:59 23:59 Intake Total 960 1170 1180 800 Balance 960 1170 1180 800 Last Vital Signs Temp Pulse Resp BP Pulse Ox 98.6 F 90 20 115/68 95 05/07/18 10:00 05/07/18 10:00 05/07/18 10:00 05/07/18 10:00 05/06/18 21:35 Active Medications Albuterol/Ipratropium (Duoneb -) 1 amp NEB Q4H PRN PRN Reason: SHORTNESS OF BREATH Amino Acids (Prosource No Carb Liquid Pkt) 30 ml PO DAILY@0800 [facility] Last Admin: 05/07/18 10:13 Dose: 30 ml Amlodipine Besylate (Norvasc -) 2.5 mg GT DAILY [facility] Last Admin: 05/07/18 10:31 Dose: 2.5 mg Arformoterol Tartrate (Brovana (Restricted To Pulmonology/Resp) -) 1 amp NEB RBID [facility] Last Admin: 05/07/18 08:06 Dose: 1 amp Ascorbic Acid (Vitamin C Oral Solution -) 500 mg GT BID [facility] Last Admin: 05/07/18 10:12 Dose: 500 mg Atorvastatin Calcium (Lipitor -) 20 mg GT HS [facility] Last Admin: 05/06/18 22:08 Dose: 20 mg Budesonide (Pulmicort 0.25 Mg Nebulizer -) 1 amp NEB RBID [facility] Last Admin: 05/07/18 08:06 Dose: 1 amp Calcium Carbonate/Cholecalciferol (Os-Jamar 500+D -) 2 tab GT HS [facility] Last Admin: 05/06/18 22:08 Dose: 2 tab Heparin Sodium (Porcine) (Heparin -) 5,000 unit SQ BID [facility] Last Admin: 05/07/18 10:30 Dose: 5,000 unit Lactulose (Cephulac (Oral Use)) 30 gm GT DAILY [facility] Last Admin: 05/07/18 10:13 Dose: 30 gm Levetiracetam (Keppra Oral Solution -) 1,500 mg GT BID [facility] Last Admin: 05/07/18 10:12 Dose: 1,500 mg Metoclopramide HCl (Reglan Oral Solution -) 5 mg GT QID [facility] Last Admin: 05/07/18 10:30 Dose: 5 mg Metoprolol Tartrate (Lopressor -) 50 mg GT BID [facility] Last Admin: 05/07/18 10:30 Dose: 50 mg Topiramate (Topamax -) 200 mg GT BID [facility] Last Admin: 05/07/18 10:14 Dose: 200 mg Valproate Sodium (Depakene -) 750 mg GT BID [facility] Last Admin: 05/07/18 10:12 Dose: 750 mg Gen: NAD, breathing nonlabored Heart: RRR Lung: decreased breath sounds at the bases Abd: soft, nontender Ext: no edema A/P Acute COPD Exacerbation Pneumonia Anoxic Brain Injury Functional Quadriplegia Seizure Disorder - continue antibiotics - Monitor off systemic steroids - Inhaled bronchodilators - O2 to keep Spo2 >90% - aspiration precautions - DVT prophylaxis Dr Bella
--- NOTE | 2018-05-07 12:48 | PN ---
Progress Note, Physician History of Present Illness: stable no new issues - Current Medication List Current Medications: Active Medications Albuterol/Ipratropium (Duoneb -) 1 amp NEB Q4H PRN PRN Reason: SHORTNESS OF BREATH Amino Acids (Prosource No Carb Liquid Pkt) 30 ml PO DAILY@0800 [facility] Last Admin: 05/07/18 10:13 Dose: 30 ml Amlodipine Besylate (Norvasc -) 2.5 mg GT DAILY [facility] Last Admin: 05/07/18 10:31 Dose: 2.5 mg Arformoterol Tartrate (Brovana (Restricted To Pulmonology/Resp) -) 1 amp NEB RBID [facility] Last Admin: 05/07/18 08:06 Dose: 1 amp Ascorbic Acid (Vitamin C Oral Solution -) 500 mg GT BID [facility] Last Admin: 05/07/18 10:12 Dose: 500 mg Atorvastatin Calcium (Lipitor -) 20 mg GT HS [facility] Last Admin: 05/06/18 22:08 Dose: 20 mg Budesonide (Pulmicort 0.25 Mg Nebulizer -) 1 amp NEB RBID [facility] Last Admin: 05/07/18 08:06 Dose: 1 amp Calcium Carbonate/Cholecalciferol (Os-Jamar 500+D -) 2 tab GT HS [facility] Last Admin: 05/06/18 22:08 Dose: 2 tab Heparin Sodium (Porcine) (Heparin -) 5,000 unit SQ BID [facility] Last Admin: 05/07/18 10:30 Dose: 5,000 unit Lactulose (Cephulac (Oral Use)) 30 gm GT DAILY [facility] Last Admin: 05/07/18 10:13 Dose: 30 gm Levetiracetam (Keppra Oral Solution -) 1,500 mg GT BID [facility] Last Admin: 05/07/18 10:12 Dose: 1,500 mg Metoclopramide HCl (Reglan Oral Solution -) 5 mg GT QID [facility] Last Admin: 05/07/18 10:30 Dose: 5 mg Metoprolol Tartrate (Lopressor -) 50 mg GT BID [facility] Last Admin: 05/07/18 10:30 Dose: 50 mg Topiramate (Topamax -) 200 mg GT BID [facility] Last Admin: 05/07/18 10:14 Dose: 200 mg Valproate Sodium (Depakene -) 750 mg GT BID [facility] Last Admin: 05/07/18 10:12 Dose: 750 mg - Objective Vital Signs: Vital Signs Temperature 98.6 F 05/07/18 10:00 Pulse Rate 90 05/07/18 10:00 Respiratory Rate 20 05/07/18 10:00 Blood Pressure 115/68 05/07/18 10:00 O2 Sat by Pulse Oximetry (%) 95 05/06/18 21:35 Constitutional: Yes: No Distress, Calm Cardiovascular: Yes: Regular Rate and Rhythm Respiratory: Yes: Regular, CTA Bilaterally Gastrointestinal: Yes: Normal Bowel Sounds, Soft, Other (peg in place) Musculoskeletal: Yes: WNL Extremities: Yes: Other (contracted) Neurological: Yes: Alert Psychiatric: Yes: Alert Labs: CBC, BMP 05/06/18 07:35 05/06/18 07:35 INR, PTT INR 1.02 (0.83-1.09) 04/29/18 12:43 Assessment/Plan Problem List - Problems (1) COPD exacerbation Code(s): J44.1 - CHRONIC OBSTRUCTIVE PULMONARY DISEASE W (ACUTE) EXACERBATION (2) Acute respiratory failure with hypoxia Code(s): J96.01 - ACUTE RESPIRATORY FAILURE WITH HYPOXIA (3) Anoxic brain damage Code(s): G93.1 - ANOXIC BRAIN DAMAGE, NOT ELSEWHERE CLASSIFIED (4) HLD (hyperlipidemia) Code(s): E78.5 - HYPERLIPIDEMIA, UNSPECIFIED (5) HTN (hypertension) Code(s): I10 - ESSENTIAL (PRIMARY) HYPERTENSION (6) Seizure disorder Code(s): G40.909 - EPILEPSY, UNSP, NOT INTRACTABLE, WITHOUT STATUS EPILEPTICUS patient could very well have aspiration issues plan asp precautions continue current mgmt rest as per the team nutrition
--- NOTE | 2018-05-07 13:28 | DS ---
Physical Examination Vital Signs: Vital Signs Temperature 98.6 F 05/07/18 10:00 Pulse Rate 90 05/07/18 10:00 Respiratory Rate 20 05/07/18 10:00 Blood Pressure 115/68 05/07/18 10:00 O2 Sat by Pulse Oximetry (%) 95 05/06/18 21:35 Constitutional: Yes: No Distress HENT: Yes: Atraumatic Neck: Yes: Supple Cardiovascular: Yes: Regular Rate and Rhythm Respiratory: Yes: Rhonchi Gastrointestinal: Yes: Normal Bowel Sounds Extremities: Yes: Deformity Labs: CBC, BMP 05/06/18 07:35 05/06/18 07:35 Discharge Summary Reason For Visit: ACUTE EXACERBATION OF CHRONIC PULMONARY DISEASE Current Active Problems COPD exacerbation (Acute) Feeding by G-tube (Acute) Condition: Stable - Instructions Diet, Activity, Other Instructions: aspiration precations pt is on oxygen at [place] Disposition: HOME - Home Medications Comprehensive Discharge Medication List: Ambulatory Orders Alendronate Sodium [Binosto] 70 mg GT WEEKLY 04/22/18 Amlodipine Besylate 2.5 mg GT DAILY 04/22/18 Ascorbic Acid 500 mg GT BID 04/22/18 Budesonide 1 mg IH BID 04/22/18 Lactulose 30 ml GT DAILY 04/22/18 Metoclopramide HCl 5 mg GT QID 04/22/18 Metoprolol Tartrate [Lopressor -] 50 mg GT BID 04/22/18 Omeprazole 20 mg GT DAILY 04/22/18 Simvastatin 40 mg GT DAILY 04/22/18 Topiramate 1 tab GT DAILY 04/22/18 Valproic Acid (As Sodium Salt) [Valproic Acid] 750 mg GT Q12H 04/22/18 Albuterol 2.5/Ipratropium 0.5 [Duoneb -] 1 neb IH QID 04/29/18 Arformoterol Tartrate [Brovana] 15 mcg IH BID 04/29/18 Budesonide [Pulmicort 0.25 mg Nebulizer -] 1 neb PO BID 04/29/18 Calcium Carbonate/Vitamin D3 [Oyster Shell 500-Vit D3 200 Tb] 2 tab GT HS Multivitamin/Iron/Folic Acid [Centrum Adults Tablet] 15 ml GT DAILY 04/29/18 Olopatadine HCl [Pataday] 2.5 ml OU DAILY 04/29/18 Phenobarbital 32.4 mg GT BID 04/29/18 Protein Supplement [Promod] 30 ml GT DAILY 04/29/18 Topiramate 200 mg GT BID 04/29/18 levETIRAcetam [Keppra -] 1,500 mg GT BID 04/29/[address] philly neal [phone]
[2018-05-07 14:57] VITALS: BP 127/72; PULSE 71; TEMP 97.8
== END 2018-05-07 16:56 | disposition home or self-care (01) | DRG 177 ==
LOC: JER 10:40 → JERBED 14:31 → OBSVTOIN 17:13 → J4W 04-30 04:05 → J5S 05-03 20:04
PROVIDERS: ADMIT Internal Medicine; ATTEND Internal Medicine
PROC: 0D20XUZ Change Feeding Device in Upper Intestinal Tract, External Approach (ICD-10-PCS; principal; 2018-05-03)
PROC: 3E0G76Z Introduction of Nutritional Substance into Upper GI, Via Natural or Artificial Opening (ICD-10-PCS; 2018-05-06)
DX: J69.0 Pneumonitis due to inhalation of food and vomit (principal); R53.2 Functional quadriplegia; J96.01 Acute respiratory failure with hypoxia; J44.1 Chronic obstructive pulmonary disease with (acute) exacerbation; G93.1 Anoxic brain damage, not elsewhere classified; R64 Cachexia; D72.829 Elevated white blood cell count, unspecified; G40.909 Epilepsy, unspecified, not intractable, without status epilepticus; I10 Essential (primary) hypertension; Z93.1 Gastrostomy status; E78.5 Hyperlipidemia, unspecified; M41.9 Scoliosis, unspecified; Z68.30 Body mass index [BMI] 30.0-30.9, adult
CPT/HCPCS: 36415; 49450; 71045-TC-FY; 80053; 82550; 83735; 84484; 85025; 85610; 93005; 93010; 94640; 94761; 99283-25; G0378; J1644

== ENCOUNTER 2018-05-08 10:22 | Inpatient (IN) | payer OTHER ==
--- NOTE | 2018-05-08 12:34 | PDOC ---
History of Present Illness - General Chief Complaint: Shortness of Breath Stated Complaint: SOB History Source: Care Provider Exam Limitations: Physical Impairment - History of Present Illness Initial Comments: 05/08/18 12:31 67 yo F wit h/o anoxic brain injury , COPD, recently admitted for copd exacerbation , just dc from hospital yesterday evening. here today for sob. no f /c no nv per aid at bedside. pt has peg tube. no known f/c. Past History - Past Medical History Allergies/Adverse Reactions: Allergies Allergy/AdvReac Type Severity Reaction Status Date / Time No Known Allergies Allergy Verified 04/29/18 11:14 Home Medications: Ambulatory Orders Alendronate Sodium [Binosto] 70 mg GT WEEKLY 04/22/18 Amlodipine Besylate 2.5 mg GT DAILY 04/22/18 Ascorbic Acid 500 mg GT BID 04/22/18 Budesonide 1 mg IH BID 04/22/18 Lactulose 30 ml GT DAILY 04/22/18 Metoclopramide HCl 5 mg GT QID 04/22/18 Metoprolol Tartrate [Lopressor -] 50 mg GT BID 04/22/18 Omeprazole 20 mg GT DAILY 04/22/18 Simvastatin 40 mg GT DAILY 04/22/18 Topiramate 1 tab GT DAILY 04/22/18 Valproic Acid (As Sodium Salt) [Valproic Acid] 750 mg GT Q12H 04/22/18 Albuterol 2.5/Ipratropium 0.5 [Duoneb -] 1 neb IH QID 04/29/18 Arformoterol Tartrate [Brovana] 15 mcg IH BID 04/29/18 Budesonide [Pulmicort 0.25 mg Nebulizer -] 1 neb PO BID 04/29/18 Calcium Carbonate/Vitamin D3 [Oyster Shell 500-Vit D3 200 Tb] 2 tab GT HS Multivitamin/Iron/Folic Acid [Centrum Adults Tablet] 15 ml GT DAILY 04/29/18 Olopatadine HCl [Pataday] 2.5 ml OU DAILY 04/29/18 Phenobarbital 32.4 mg GT BID 04/29/18 Protein Supplement [Promod] 30 ml GT DAILY 04/29/18 Topiramate 200 mg GT BID 04/29/18 levETIRAcetam [Keppra -] 1,500 mg GT BID 04/29/18 CVA: Yes COPD: No (cerebral palsy/brian hearing loss.) HTN: Yes Hypercholesterolemia: Yes - Suicide/Smoking/Psychosocial Hx Smoking History: Never smoked Have you smoked in the past 12 months: No Information on smoking cessation initiated: No Hx Alcohol Use: No Drug/Substance Use Hx: No Substance Use Type: None Hx Substance Use Treatment: No Review of Systems - Review of Systems Able to Perform ROS?: No (nonverbal) *Physical Exam - Vital Signs Last Vital Signs Temp Pulse Resp BP Pulse Ox 99.6 F 79 26 H 164/80 80 L 05/08/18 10:35 05/08/18 10:35 05/08/18 10:35 05/08/18 10:35 05/08/18 10:35 - Physical Exam Comments: 05/08/18 12:32 eyes closed, nonverbal, does not respond. lungs clear bilaterlly poor aeration. heart rrr no mrg abd soft peg in place. no erythema. ext thin cachectic and contracted. john does not follow comands, nonverbal ( baseline) Moderate Sedation - Procedure Monitoring Vital Signs: Procedure Monitoring Vital Signs Temperature 99.6 F 05/08/18 10:35 Pulse Rate 79 05/08/18 10:35 Respiratory Rate 26 H 05/08/18 10:35 Blood Pressure 164/80 05/08/18 10:35 O2 Sat by Pulse Oximetry (%) 80 L 05/08/18 10:35 Heart Score/ECG Review #1 General ECG Interpretation: Sinus Rhythm, Normal Rate (78), Normal Intervals, No acute ischemic changes ED Treatment Course - LABORATORY CBC & Chemistry Diagram: 05/08/18 12:26 05/08/18 12:26 - RADIOLOGY Radiology Studies Ordered: Category Date Time Status CHEST PA & LAT [RAD] Stat Radiology 05/08/18 12:24 Ordered CHEST X-RAY PORTABLE* [RAD] Stat Radiology 05/08/18 12:28 Stop Req Medical Decision Making - Medical Decision Making 05/08/18 12:33 differential pna, copd , aspiration, effusion chf. plan cxr labs ekg will d/w dr morin, who recenlty admitted pt. 05/08/18 15:13 cxr with congestion, questionable infiltrate behind right heart border. low grade temp, danna treat with nebs. steroids. concern for possible re- aspiration. d/w dr morin. will admit pt iv abx, steroids and meds. will need to reevalute goals of care. no family present in ed. *DC/Admit/Observation/Transfer Diagnosis at time of Disposition: COPD exacerbation, Aspiration pneumonia - Discharge Dispostion Decision to Admit order: Yes - Referrals - Patient Instructions - Post Discharge Activity
[2018-05-08] MEDS ORDERED: ALBUTEROL SO4 2.5/IPRATROPIUM 0.5 INH SOL 3 ML VIAL.NEB. NEB ONE ×2 (12:37→14:21)
--- NOTE | 2018-05-08 12:43 | EKG ---
Test Reason : Blood Pressure : / mmHG Vent. Rate : 078 BPM Atrial Rate : 078 BPM P-R Int : 112 ms QRS Dur : 072 ms QT Int : 348 ms P-R-T Axes : 016 065 046 degrees QTc Int : 396 ms NORMAL SINUS RHYTHM NORMAL ECG WHEN COMPARED WITH ECG OF 29-APR-2018 12:33, NO SIGNIFICANT CHANGE WAS FOUND Confirmed by CHARLY FAIR MD ([id number]) on 05/08/2018 12:42:56 PM Referred By: Confirmed By:CHARLY FAIR MD
[2018-05-08 13:06] LABS: BASO % 0.6 % (0-2.0); EOS % 1.6 % (0-4.5); HEMATOCRIT 40.9 % (32.4-45.2); HEMOGLOBIN 13.8 GM/dL (10.7-15.3); LYMPH % 10.8 % (8-40); MCH 31.8 pg (25.7-33.7); MCHC 33.7 g/dl (32.0-36.0); MEAN CELL VOLUME 94.4 fl (80-96); MEAN PLT VOLUME 8.1 fl (7.5-11.1); MONO % 7.2 % (3.8-10.2); NEUT % 79.8 % (42.8-82.8); PLATELET COUNT 232 K/MM3 (134-434); RBC 4.33 M/mm3 (3.60-5.2); RDW 13.3 % (11.6-15.6); WHITE BLOOD COUNT 13.5 K/mm3 (4.0-10.0)
[2018-05-08 13:50] LABS: ALBUMIN 2.5 g/dl (3.4-5.0); ALK PHOS 174 U/L (45-117); ANION GAP 7 MMOL/L (8-16); BILIRUBIN,TOTAL 0.2 mg/dL (0.2-1); BLOOD UREA NITROGEN 15 mg/dL (7-18); CALCIUM 8.5 mg/dL (8.5-10.1); CHLORIDE 96 mmol/L (98-107); CO2 35 mmol/L (21-32); CREATININE 0.3 mg/dL (0.55-1.3); GLUCOSE,RANDOM 100 mg/dL (74-106); POTASSIUM 4.2 mmol/L (3.5-5.1); SGOT/AST 14 U/L (15-37); SGPT/ALT 24 U/L (13-61); SODIUM 138 mmol/L (136-145); TOT PROT 6.2 g/dl (6.4-8.2)
[2018-05-08] MEDS ORDERED: methylPREDNISolone NA SUCC 40 MG/1 ML VIAL IVPUSH ONE (15:17)
[2018-05-08] MEDS ORDERED: VANCOMYCIN 1 GM in D5W (PRE-DOCKED) 1,000 MG/250 ML IVPB ONE (15:18)
[2018-05-08] MEDS ORDERED: PIPERACILLIN/TAZOB 2.25 GM 2.25 GM in DEXTROSE 5%-WATER - 50 ML IVPB ONE (15:18)
[2018-05-08] MEDS ORDERED: PIPERACILLIN/TAZOB 2.25 GM 2.25 GM/50 ML BAG IVPB ONE (16:00)
[2018-05-08] MEDS ORDERED: VANCOMYCIN 1 GRAM (PRE-DOCKED) 1,000 MG/250 ML BAG IVPB ONE (16:01)
[2018-05-08] MEDS ORDERED: methylPREDNISolone NA SUCC 40 MG/1 ML VIAL ONE (16:01)
--- NOTE | 2018-05-08 17:01 | HP ---
Admitting History and Physical - Primary Care Physician PCP: Stas Tamayo - Admission History of Present Illness: 67 yo F wit h/o anoxic brain injury , COPD, recently admitted for copd exacerbation , just dc from hospital yesterday evening. here today for sob. no f /c no nv per aid at bedside. pt has peg tube. 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) - Smoking History Smoking history: Never smoked Have you smoked in the past 12 months: No - Alcohol/Substance Use Hx Alcohol Use: No Home Medications - Allergies Allergies/Adverse Reactions: Allergies Allergy/AdvReac Type Severity Reaction Status Date / Time No Known Allergies Allergy Verified 04/29/18 11:14 - Home Medications Home Medications: Ambulatory Orders Alendronate Sodium [Binosto] 70 mg GT WEEKLY 04/22/18 Amlodipine Besylate 2.5 mg GT DAILY 04/22/18 Ascorbic Acid 500 mg GT BID 04/22/18 Budesonide 1 mg IH BID 04/22/18 Lactulose 30 ml GT DAILY 04/22/18 Metoclopramide HCl 5 mg GT QID 04/22/18 Metoprolol Tartrate [Lopressor -] 50 mg GT BID 04/22/18 Omeprazole 20 mg GT DAILY 04/22/18 Simvastatin 40 mg GT DAILY 04/22/18 Topiramate 1 tab GT DAILY 04/22/18 Valproic Acid (As Sodium Salt) [Valproic Acid] 750 mg GT Q12H 04/22/18 Albuterol 2.5/Ipratropium 0.5 [Duoneb -] 1 neb IH QID 04/29/18 Arformoterol Tartrate [Brovana] 15 mcg IH BID 04/29/18 Budesonide [Pulmicort 0.25 mg Nebulizer -] 1 neb PO BID 04/29/18 Calcium Carbonate/Vitamin D3 [Oyster Shell 500-Vit D3 200 Tb] 2 tab GT HS Multivitamin/Iron/Folic Acid [Centrum Adults Tablet] 15 ml GT DAILY 04/29/18 Olopatadine HCl [Pataday] 2.5 ml OU DAILY 04/29/18 Phenobarbital 32.4 mg GT BID 04/29/18 Protein Supplement [Promod] 30 ml GT DAILY 04/29/18 Topiramate 200 mg GT BID 04/29/18 levETIRAcetam [Keppra -] 1,500 mg GT BID 04/29/18 Prednisone 10 mg PO ASDIR #30 tablet 05/08/18 Scopolamine Hydrobromide [Transderm-Scop -] 1 patch TD Q72H #7 patch.[id number] Physical Examination Vital Signs: Vital Signs Temperature 99.6 F 05/08/18 10:35 Pulse Rate 79 05/08/18 10:35 Respiratory Rate 26 H 05/08/18 10:35 Blood Pressure 164/80 05/08/18 10:35 O2 Sat by Pulse Oximetry (%) 100 05/08/18 11:00 Constitutional: Yes: No Distress HENT: Yes: Atraumatic Neck: Yes: Supple Respiratory: Yes: Rhonchi Gastrointestinal: Yes: Normal Bowel Sounds Extremities: Yes: Shortened Neurological: Yes: Alert Labs: CBC, BMP 05/08/18 12:26 05/08/18 12:26 Problem List - Problems (1) Hypoxia Assessment/Plan: on oxygen frequent aspirations scopolamine patch to dry secretions Code(s): R09.02 - HYPOXEMIA (2) Feeding by G-tube Code(s): Z93.1 - GASTROSTOMY STATUS (3) Functional quadriplegia Code(s): R53.2 - FUNCTIONAL QUADRIPLEGIA (4) HLD (hyperlipidemia) Assessment/Plan: on meds Code(s): E78.5 - HYPERLIPIDEMIA, UNSPECIFIED (5) HTN (hypertension) Assessment/Plan: on meds Code(s): I10 - ESSENTIAL (PRIMARY) HYPERTENSION Assessment/Plan Laboratory Tests 05/08/18 05/08/18 05/08/18 12:26 12:26 14:44 WBC 13.5 H RBC 4.33 Hgb 13.8 Hct 40.9 MCV 94.4 MCH 31.8 MCHC 33.7 RDW 13.3 Plt Count 232 MPV 8.1 Absolute Neuts (auto) 10.8 H Neutrophils % 79.8 Lymphocytes % 10.8 Monocytes % 7.2 Eosinophils % 1.6 Basophils % 0.6 Nucleated RBC % 0 Sodium 138 Potassium 4.2 Chloride 96 L Carbon Dioxide 35 H Anion Gap 7 L BUN 15 Creatinine 0.3 L Creat Clearance w eGFR > 60 Random Glucose 100 Calcium 8.5 Total Bilirubin 0.2 AST 14 L ALT 24 Alkaline Phosphatase 174 H Creatine Kinase 39 Troponin I < 0.02 B-Natriuretic Peptide 138.8 H Total Protein 6.2 L Albumin 2.5 L Active Medications Generic Name Dose Route Start Last Admin Trade Name Kanaq PRN Reason Stop Dose Admin Amlodipine Besylate 2.5 mg 05/09/18 10:00 Norvasc - GT DAILY [facility] Lactulose 30 gm 05/09/18 10:00 Cephulac (Oral Use) GT DAILY [facility] Levetiracetam 1,500 mg 05/08/18 22:00 Keppra Oral Solution - GT BID [facility] Metoprolol Tartrate 50 mg 05/08/18 22:00 Lopressor - GT BID [facility]E Non-Formulary Medication 5 mg 05/08/18 18:00 Metoclopramide Hcl [Metoclopramide Hcl] GT QID [facility] Non-Formulary Medication 20 mg 05/09/18 10:00 Omeprazole GT DAILY [facility] Non-Formulary Medication 40 mg 05/09/18 10:00 Simvastatin [Simvastatin] GT DAILY [facility] Phenobarbital 30 mg 05/08/18 22:00 Phenobarbital - GT BID [facility] Topiramate 200 mg 05/08/18 22:00 Topamax - GT BID [facility] Valproate Sodium 750 mg 05/08/18 22:00 Depakene - GT BID [facility] d/w dr minna neal pt was on 2l nc, and lots of secretions she was on aspiration protocol i will put her on low dose steroids ...taper scopolamine patch for secretions plan is to dc her tomorrow
[2018-05-08] MEDS: METOCLOPRAMIDE HCL 5 MG/5 ML UNIT DOSE CUP GT SCH ×2 (18:36→22:24)
[2018-05-08] MEDS: SCOPOLAMINE HYDROBROMIDE 1 PATCH PATCH.TD72 TD SCH (18:54)
[2018-05-08] MEDS ORDERED: TOPIRAMATE 100 MG TABLET GT SCH (22:00)
[2018-05-08] MEDS: ATORVASTATIN CA 20 MG TABLET (FP) GT SCH (22:24)
[2018-05-08] MEDS: VALPROATE SODIUM 250 MG/5 ML UNIT DOSE CUP GT SCH (22:24)
[2018-05-08] MEDS: levETIRAcetam 500 MG/5 ML ORAL SOLUTION (UNIT-DOSE CUPS) GT SCH (22:24)
[2018-05-08] MEDS: RANITIDINE HCL 150 MG/10 ML UNIT-DOSE GT SCH (22:24)
[2018-05-08] MEDS: METOPROLOL TARTRATE 50 MG TABLET (FP) GT SCH (22:25)
[2018-05-08] MEDS: PHENobarbital 30 MG TABLET GT SCH (22:25)
[2018-05-08] MEDS: HEPARIN NA (PORCINE) 5,000 UNITS/ML 1ML VIAL SQ SCH (22:25)
[2018-05-09] MEDS ORDERED: PT OWN MED DRAWER 7, Y5N ONE ×3 (09:35→13:40)
[2018-05-09] MEDS: PHENobarbital 30 MG TABLET GT SCH ×2 (09:37→22:39)
[2018-05-09] MEDS: METOPROLOL TARTRATE 50 MG TABLET (FP) GT SCH ×2 (09:37→22:39)
[2018-05-09] MEDS: LACTULOSE 20 GM/30 ML UDC (FOR ORAL USE ONLY) GT SCH (09:37)
[2018-05-09] MEDS: VALPROATE SODIUM 250 MG/5 ML UNIT DOSE CUP GT SCH ×2 (09:37→22:39)
[2018-05-09] MEDS: RANITIDINE HCL 150 MG/10 ML UNIT-DOSE GT SCH ×2 (09:37→22:39)
[2018-05-09] MEDS: amLODIPine BESYLATE 2.5 MG TABLET (FP) GT SCH (09:37)
[2018-05-09] MEDS: HEPARIN NA (PORCINE) 5,000 UNITS/ML 1ML VIAL SQ SCH ×2 (09:38→22:39)
[2018-05-09] MEDS: TOPIRAMATE 200 MG TABLET (FP) GT SCH ×2 (09:38→22:40)
[2018-05-09] MEDS: METOCLOPRAMIDE HCL 5 MG/5 ML UNIT DOSE CUP GT SCH ×4 (09:38→22:38)
[2018-05-09] MEDS: levETIRAcetam 500 MG/5 ML ORAL SOLUTION (UNIT-DOSE CUPS) GT SCH ×2 (09:39→22:40)
--- NOTE | 2018-05-09 10:55 | DS ---
Physical Examination Vital Signs: Vital Signs Temperature 98.7 F 05/09/18 09:30 Pulse Rate 78 05/09/18 09:30 Respiratory Rate 24 H 05/09/18 09:30 Blood Pressure 113/63 05/09/18 09:30 O2 Sat by Pulse Oximetry (%) 97 05/08/18 22:00 Labs: CBC, BMP 05/08/18 12:26 05/08/18 12:26 Discharge Summary Reason For Visit: ASPIRATION PNEUMONIA/ACUTE EXACERBATION OF CHRONIC Current Active Problems Aspiration pneumonia (Acute) COPD exacerbation (Acute) Hypoxia (Acute) - Instructions - Home Medications Comprehensive Discharge Medication List: Ambulatory Orders Alendronate Sodium [Binosto] 70 mg GT WEEKLY 04/22/18 Amlodipine Besylate 2.5 mg GT DAILY 04/22/18 Ascorbic Acid 500 mg GT BID 04/22/18 Budesonide 1 mg IH BID 04/22/18 Lactulose 30 ml GT DAILY 04/22/18 Metoclopramide HCl 5 mg GT QID 04/22/18 Metoprolol Tartrate [Lopressor -] 50 mg GT BID 04/22/18 Omeprazole 20 mg GT DAILY 04/22/18 Simvastatin 40 mg GT DAILY 04/22/18 Topiramate 1 tab GT DAILY 04/22/18 Valproic Acid (As Sodium Salt) [Valproic Acid] 750 mg GT Q12H 04/22/18 Albuterol 2.5/Ipratropium 0.5 [Duoneb -] 1 neb IH QID 04/29/18 Arformoterol Tartrate [Brovana] 15 mcg IH BID 04/29/18 Budesonide [Pulmicort 0.25 mg Nebulizer -] 1 neb PO BID 04/29/18 Calcium Carbonate/Vitamin D3 [Oyster Shell 500-Vit D3 200 Tb] 2 tab GT HS Multivitamin/Iron/Folic Acid [Centrum Adults Tablet] 15 ml GT DAILY 04/29/18 Olopatadine HCl [Pataday] 2.5 ml OU DAILY 04/29/18 Phenobarbital 32.4 mg GT BID 04/29/18 Protein Supplement [Promod] 30 ml GT DAILY 04/29/18 Topiramate 200 mg GT BID 04/29/18 levETIRAcetam [Keppra -] 1,500 mg GT BID 04/29/18 Prednisone 10 mg PO ASDIR #30 tablet 05/08/18 Scopolamine Hydrobromide [Transderm-Scop -] 1 patch TD Q72H #[id number] jono degroot aware
[2018-05-09] MEDS ORDERED: predniSONE 5 MG/5 ML ORAL SOLN- UNIT-DOSE CUP PEG ONE (13:00)
[2018-05-09 13:36] VITALS: BMI 26.0
[2018-05-09] MEDS: NYSTATIN POWDER 100,000 UNITS/GM - 15 GM TOPICAL POWDER TP SCH ×2 (13:44→22:40)
[2018-05-09] MEDS: NYSTATIN 100,000 UNIT/GM TOPICAL CREAM 15 GM TUBE TP SCH ×2 (13:44→22:40)
--- NOTE | 2018-05-09 16:13 | CON.ID ---
Consult Consult Specialty:: infectious disease Referred by:: Reason for Consultation:: resp failure,sob - History of Present Illness History of Present Illness: 67 yo F wit h/o anoxic brain injury , COPD, recently admitted for copd exacerbation , just dc from hospital yesterday evening. here today for sob. no f /c no nv per aid at bedside. pt has peg tube. 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) - Alcohol/Substance Use Hx Alcohol Use: No - Smoking History Smoking history: Never smoked Have you smoked in the past 12 months: No Home Medications - Allergies Allergies/Adverse Reactions: Allergies Allergy/AdvReac Type Severity Reaction Status Date / Time No Known Allergies Allergy Verified 04/29/18 11:14 - Home Medications Home Medications: Ambulatory Orders Alendronate Sodium [Binosto] 70 mg GT WEEKLY 04/22/18 Amlodipine Besylate 2.5 mg GT DAILY 04/22/18 Ascorbic Acid 500 mg GT BID 04/22/18 Budesonide 1 mg IH BID 04/22/18 Lactulose 30 ml GT DAILY 04/22/18 Metoclopramide HCl 5 mg GT QID 04/22/18 Metoprolol Tartrate [Lopressor -] 50 mg GT BID 04/22/18 Omeprazole 20 mg GT DAILY 04/22/18 Simvastatin 40 mg GT DAILY 04/22/18 Topiramate 1 tab GT DAILY 04/22/18 Valproic Acid (As Sodium Salt) [Valproic Acid] 750 mg GT Q12H 04/22/18 Albuterol 2.5/Ipratropium 0.5 [Duoneb -] 1 neb IH QID 04/29/18 Arformoterol Tartrate [Brovana] 15 mcg IH BID 04/29/18 Budesonide [Pulmicort 0.25 mg Nebulizer -] 1 neb PO BID 04/29/18 Calcium Carbonate/Vitamin D3 [Oyster Shell 500-Vit D3 200 Tb] 2 tab GT HS Multivitamin/Iron/Folic Acid [Centrum Adults Tablet] 15 ml GT DAILY 04/29/18 Olopatadine HCl [Pataday] 2.5 ml OU DAILY 04/29/18 Phenobarbital 32.4 mg GT BID 04/29/18 Protein Supplement [Promod] 30 ml GT DAILY 04/29/18 Topiramate 200 mg GT BID 04/29/18 levETIRAcetam [Keppra -] 1,500 mg GT BID 04/29/18 Prednisone 10 mg PO ASDIR #30 tablet 05/08/18 Scopolamine Hydrobromide [Transderm-Scop -] 1 patch TD Q72H #7 patch.[id number] Review of Systems Unable to obtain ROS, reason: unable to obtain Physical Exam Vital Signs: Vital Signs Temperature 98.8 F 05/09/18 15:38 Pulse Rate 69 05/09/18 15:38 Respiratory Rate 22 H 05/09/18 15:38 Blood Pressure 104/64 05/09/18 15:38 O2 Sat by Pulse Oximetry (%) 97 05/08/18 22:00 Constitutional: Yes: Mild Distress Cardiovascular: Yes: Tachycardia Respiratory: Yes: On Nasal O2, Poor Air Entry, Other Gastrointestinal: Yes: Normal Bowel Sounds, Soft, Other (peg in lace) Musculoskeletal: Yes: WNL Extremities: Yes: WNL, Other (contracted) Neurological: Yes: Other Psychiatric: Yes: Other Labs: CBC, BMP 05/08/18 12:26 05/08/18 12:26 Imaging - Results Chest X-ray: Report Reviewed, Image Reviewed
[2018-05-09] MEDS ORDERED: DEXTROSE 5%-WATER - 50 ML IVPB ONE (17:03)
[2018-05-09] MEDS ORDERED: PIPERACILLIN/TAZOBACTAM 2.25 GM VIAL IVPB ONE (17:03)
[2018-05-09] MEDS: PIPERACILLIN/TAZOB 2.25 GM 2.25 GM in DEXTROSE 5%-WATER - 50 ML IVPB SCH (17:04)
--- NOTE | 2018-05-09 18:47 | PN ---
Progress Note, Physician History of Present Illness: sob - Current Medication List Current Medications: Active Medications Albuterol/Ipratropium (Duoneb -) 1 amp NEB Q4H PRN PRN Reason: SHORTNESS OF BREATH Amlodipine Besylate (Norvasc -) 2.5 mg GT DAILY [facility] [place] Last Admin: 05/09/18 09:37 Dose: 2.5 mg Atorvastatin Calcium (Lipitor -) 20 mg GT HS [facility] [place] Last Admin: 05/08/18 22:24 Dose: 20 mg Heparin Sodium (Porcine) (Heparin -) 5,000 unit SQ BID [facility] [place] Last Admin: 05/09/18 09:38 Dose: 5,000 unit Piperacillin Sod/Tazobactam (Sod 2.25 gm/ Dextrose) 50 mls @ 100 mls/hr IVPB Q8H-IV [facility]CIE; Protocol Last Admin: 05/09/18 17:04 Dose: 100 mls/hr Lactulose (Cephulac (Oral Use)) 20 gm GT DAILY [facility] [place] Last Admin: 05/09/18 09:37 Dose: 20 gm Levetiracetam (Keppra Oral Solution -) 1,500 mg GT BID [facility] [place] Last Admin: 05/09/18 09:39 Dose: 1,500 mg Methylprednisolone Sodium Succinate (Solu-Medrol -) 40 mg IVPUSH DAILY [facility] [place] Metoclopramide HCl (Reglan Oral Solution -) 5 mg GT QID [facility] [place] Last Admin: 05/09/18 18:26 Dose: 5 mg Metoprolol Tartrate (Lopressor -) 50 mg GT BID [facility] [place] Last Admin: 05/09/18 09:37 Dose: 50 mg Nystatin (Mycostatin Cream -) 1 applic TP BID [facility] [place] Last Admin: 05/09/18 13:44 Dose: 1 applic Nystatin (Nystop Powder -) 1 applic TP BID [facility] [place] Last Admin: 05/09/18 13:44 Dose: 1 applic Phenobarbital (Phenobarbital -) 30 mg GT BID [facility] [place] Last Admin: 05/09/18 09:37 Dose: 30 mg Ranitidine HCl (Zantac Oral Solution -) 150 mg GT BID [facility] [place] Last Admin: 05/09/18 09:37 Dose: 150 mg Scopolamine HBr (Transderm-Scop -) 1 patch TD Q72H [facility] [place] Last Admin: 05/08/18 18:54 Dose: 1 patch Topiramate (Topamax -) 200 mg GT BID [facility] [place] Last Admin: 05/09/18 09:38 Dose: 200 mg Valproate Sodium (Depakene -) 750 mg GT BID [facility] [place] Last Admin: 05/09/18 09:37 Dose: 750 mg - Objective Vital Signs: Vital Signs Temperature 98.8 F 05/09/18 15:38 Pulse Rate 88 05/09/18 16:46 Respiratory Rate 28 H 05/09/18 16:46 Blood Pressure 129/69 05/09/18 16:46 O2 Sat by Pulse Oximetry (%) 97 05/09/18 10:10 Constitutional: Yes: Calm HENT: Yes: Atraumatic Neck: Yes: Supple Cardiovascular: Yes: Regular Rate and Rhythm Respiratory: Yes: Rhonchi Gastrointestinal: Yes: Normal Bowel Sounds Extremities: Yes: Deformity Labs: CBC, BMP 05/08/18 12:26 05/08/18 12:26 Problem List - Problems (1) Hypoxia Assessment/Plan: on oxygen frequent aspirations scopolamine patch to dry secretions iv steroids iv abx Code(s): R09.02 - HYPOXEMIA (2) Feeding by G-tube Code(s): Z93.1 - GASTROSTOMY STATUS (3) Functional quadriplegia Code(s): R53.2 - FUNCTIONAL QUADRIPLEGIA (4) HLD (hyperlipidemia) Assessment/Plan: on meds Code(s): E78.5 - HYPERLIPIDEMIA, UNSPECIFIED (5) HTN (hypertension) Assessment/Plan: on meds Code(s): I10 - ESSENTIAL (PRIMARY) HYPERTENSION
[2018-05-09] MEDS: ALBUTEROL SO4 2.5/IPRATROPIUM 0.5 INH SOL 3 ML VIAL.NEB. NEB PRN (19:28)
[2018-05-09] MEDS: ATORVASTATIN CA 20 MG TABLET (FP) GT SCH (22:39)
[2018-05-10] MEDS ORDERED: PIPERACILLIN/TAZOBACTAM 2.25 GM VIAL IVPB ONE ×4 (01:33→17:05)
[2018-05-10] MEDS ORDERED: DEXTROSE 5%-WATER - 50 ML IVPB ONE ×3 (01:34→17:05)
[2018-05-10] MEDS: PIPERACILLIN/TAZOB 2.25 GM 2.25 GM in DEXTROSE 5%-WATER - 50 ML IVPB SCH ×3 (02:18→17:42)
[2018-05-10] MEDS ORDERED: PT OWN MED DRAWER 7, Y5N ONE (10:02)
--- NOTE | 2018-05-10 10:03 | PN ---
Progress Note, Physician History of Present Illness: patient looks much stable breathing well - Current Medication List Current Medications: Active Medications Albuterol/Ipratropium (Duoneb -) 1 amp NEB Q4H PRN PRN Reason: SHORTNESS OF BREATH Last Admin: 05/09/18 19:28 Dose: 1 amp Amlodipine Besylate (Norvasc -) 2.5 mg GT DAILY [facility] Last Admin: 05/09/18 09:37 Dose: 2.5 mg Atorvastatin Calcium (Lipitor -) 20 mg GT HS [facility] Last Admin: 05/09/18 22:39 Dose: 20 mg Heparin Sodium (Porcine) (Heparin -) 5,000 unit SQ BID [facility] Last Admin: 05/09/18 22:39 Dose: 5,000 unit Piperacillin Sod/Tazobactam (Sod 2.25 gm/ Dextrose) 50 mls @ 100 mls/hr IVPB Q8H-IV [facility]CIE; Protocol Last Admin: 05/10/18 02:18 Dose: 100 mls/hr Lactulose (Cephulac (Oral Use)) 20 gm GT DAILY [facility] Last Admin: 05/09/18 09:37 Dose: 20 gm Levetiracetam (Keppra Oral Solution -) 1,500 mg GT BID [facility] Last Admin: 05/09/18 22:40 Dose: 1,500 mg Methylprednisolone Sodium Succinate (Solu-Medrol -) 40 mg IVPUSH DAILY [facility] Metoclopramide HCl (Reglan Oral Solution -) 5 mg GT QID [facility] Last Admin: 05/09/18 22:38 Dose: 5 mg Metoprolol Tartrate (Lopressor -) 50 mg GT BID [facility] Last Admin: 05/09/18 22:39 Dose: 50 mg Nystatin (Mycostatin Cream -) 1 applic TP BID [facility] Last Admin: 05/09/18 22:40 Dose: 1 applic Nystatin (Nystop Powder -) 1 applic TP BID [facility] Last Admin: 05/09/18 22:40 Dose: 1 applic Phenobarbital (Phenobarbital -) 30 mg GT BID [facility] Last Admin: 05/09/18 22:39 Dose: 30 mg Ranitidine HCl (Zantac Oral Solution -) 150 mg GT BID [facility] Last Admin: 05/09/18 22:39 Dose: 150 mg Scopolamine HBr (Transderm-Scop -) 1 patch TD Q72H [facility] Last Admin: 05/08/18 18:54 Dose: 1 patch Topiramate (Topamax -) 200 mg GT BID [facility] Last Admin: 05/09/18 22:40 Dose: 200 mg Valproate Sodium (Depakene -) 750 mg GT BID [facility] Last Admin: 05/09/18 22:39 Dose: 750 mg - Objective Vital Signs: Vital Signs Temperature 98.9 F 05/10/18 06:00 Pulse Rate 70 05/10/18 06:00 Respiratory Rate 20 05/10/18 06:00 Blood Pressure 128/65 05/10/18 06:00 O2 Sat by Pulse Oximetry (%) 96 05/10/18 02:00 Constitutional: Yes: No Distress, Calm Cardiovascular: Yes: Regular Rate and Rhythm Respiratory: Yes: On Nasal O2, Poor Air Entry Gastrointestinal: Yes: Normal Bowel Sounds, Soft, Other (peg in place) Musculoskeletal: Yes: WNL Extremities: Yes: Other (contracted) Neurological: Yes: Alert, Other Psychiatric: Yes: Other Labs: CBC, BMP 05/08/18 12:26 05/08/18 12:26 Assessment/Plan Problem List - Problems (1) Hypoxia Code(s): R09.02 - HYPOXEMIA (2) Feeding by G-tube Code(s): Z93.1 - GASTROSTOMY STATUS (3) Functional quadriplegia Code(s): R53.2 - FUNCTIONAL QUADRIPLEGIA (4) HLD (hyperlipidemia) Code(s): E78.5 - HYPERLIPIDEMIA, UNSPECIFIED (5) HTN (hypertension) Code(s): I10 - ESSENTIAL (PRIMARY) HYPERTENSION aspiration pn plan continue abx xray chest reprt noted if patient remains stable will switch to oral rest as per the team
[2018-05-10] MEDS: VALPROATE SODIUM 250 MG/5 ML UNIT DOSE CUP GT SCH ×2 (10:05→22:00)
[2018-05-10] MEDS: METOCLOPRAMIDE HCL 5 MG/5 ML UNIT DOSE CUP GT SCH ×4 (10:05→22:00)
[2018-05-10] MEDS: METOPROLOL TARTRATE 50 MG TABLET (FP) GT SCH ×2 (10:06→22:00)
[2018-05-10] MEDS: methylPREDNISolone NA SUCC 40 MG/1 ML VIAL IVPUSH SCH (10:06)
[2018-05-10] MEDS: HEPARIN NA (PORCINE) 5,000 UNITS/ML 1ML VIAL SQ SCH ×2 (10:06→22:00)
[2018-05-10] MEDS: levETIRAcetam 500 MG/5 ML ORAL SOLUTION (UNIT-DOSE CUPS) GT SCH ×2 (10:06→22:00)
[2018-05-10] MEDS: RANITIDINE HCL 150 MG/10 ML UNIT-DOSE GT SCH ×2 (10:06→22:00)
[2018-05-10] MEDS: PHENobarbital 30 MG TABLET GT SCH ×2 (10:06→22:00)
[2018-05-10] MEDS: amLODIPine BESYLATE 2.5 MG TABLET (FP) GT SCH (10:06)
[2018-05-10] MEDS: TOPIRAMATE 200 MG TABLET (FP) GT SCH ×2 (10:13→22:00)
[2018-05-10] MEDS: NYSTATIN 100,000 UNIT/GM TOPICAL CREAM 15 GM TUBE TP SCH ×2 (10:14→22:00)
[2018-05-10] MEDS: NYSTATIN POWDER 100,000 UNITS/GM - 15 GM TOPICAL POWDER TP SCH ×2 (10:14→22:00)
[2018-05-10] MEDS: LACTULOSE 20 GM/30 ML UDC (FOR ORAL USE ONLY) GT SCH (10:19)
[2018-05-10] MEDS: ATORVASTATIN CA 20 MG TABLET (FP) GT SCH (22:00)
--- NOTE | 2018-05-10 23:42 | PN ---
Progress Note, Physician - Current Medication List Current Medications: Active Medications Albuterol/Ipratropium (Duoneb -) 1 amp NEB Q4H PRN PRN Reason: SHORTNESS OF BREATH Last Admin: 05/09/18 19:28 Dose: 1 amp Amlodipine Besylate (Norvasc -) 2.5 mg GT DAILY [facility] Last Admin: 05/10/18 10:06 Dose: 2.5 mg Atorvastatin Calcium (Lipitor -) 20 mg GT HS [facility] Last Admin: 05/09/18 22:39 Dose: 20 mg Heparin Sodium (Porcine) (Heparin -) 5,000 unit SQ BID [facility] Last Admin: 05/10/18 10:06 Dose: 5,000 unit Piperacillin Sod/Tazobactam (Sod 2.25 gm/ Dextrose) 50 mls @ 100 mls/hr IVPB Q8H-IV [facility]; Protocol Last Admin: 05/10/18 17:42 Dose: 100 mls/hr Lactulose (Cephulac (Oral Use)) 20 gm GT DAILY [facility] Last Admin: 05/10/18 10:19 Dose: 20 gm Levetiracetam (Keppra Oral Solution -) 1,500 mg GT BID [facility] Last Admin: 05/10/18 10:06 Dose: 1,500 mg Methylprednisolone Sodium Succinate (Solu-Medrol -) 40 mg IVPUSH DAILY [facility] Last Admin: 05/10/18 10:06 Dose: 40 mg Metoclopramide HCl (Reglan Oral Solution -) 5 mg GT QID [facility] Last Admin: 05/10/18 17:42 Dose: 5 mg Metoprolol Tartrate (Lopressor -) 50 mg GT BID [facility] Last Admin: 05/10/18 10:06 Dose: 50 mg Nystatin (Mycostatin Cream -) 1 applic TP BID [facility] Last Admin: 05/10/18 10:14 Dose: 1 applic Nystatin (Nystop Powder -) 1 applic TP BID [facility] Last Admin: 05/10/18 10:14 Dose: 1 applic Phenobarbital (Phenobarbital -) 30 mg GT BID [facility] Last Admin: 05/10/18 10:06 Dose: 30 mg Ranitidine HCl (Zantac Oral Solution -) 150 mg GT BID [facility] Last Admin: 05/10/18 10:06 Dose: 150 mg Scopolamine HBr (Transderm-Scop -) 1 patch TD Q72H [facility] Last Admin: 03/06/19 18:54 Dose: 1 patch Topiramate (Topamax -) 200 mg GT BID [facility] Last Admin: 05/10/18 10:13 Dose: 200 mg Valproate Sodium (Depakene -) 750 mg GT BID [facility] Last Admin: 05/10/18 10:05 Dose: 750 mg - Objective Vital Signs: Vital Signs Temperature 99.5 F 05/10/18 18:05 Pulse Rate 97 H 05/10/18 18:05 Respiratory Rate 20 05/10/18 18:05 Blood Pressure 127/80 05/10/18 18:05 O2 Sat by Pulse Oximetry (%) 97 05/10/18 10:00 Constitutional: Yes: No Distress HENT: Yes: Atraumatic Neck: Yes: Supple Cardiovascular: Yes: Regular Rate and Rhythm Respiratory: Yes: Rhonchi Gastrointestinal: Yes: Normal Bowel Sounds Extremities: Yes: WNL Edema: No Neurological: Yes: Alert, Oriented Labs: CBC, BMP 05/08/18 12:26 05/08/18 12:26 Problem List - Problems (1) Hypoxia Assessment/Plan: on oxygen frequent aspirations scopolamine patch to dry secretions iv steroids iv abx Code(s): R09.02 - HYPOXEMIA (2) Feeding by G-tube Code(s): Z93.1 - GASTROSTOMY STATUS (3) Functional quadriplegia Code(s): R53.2 - FUNCTIONAL QUADRIPLEGIA (4) HLD (hyperlipidemia) Assessment/Plan: on meds Code(s): E78.5 - HYPERLIPIDEMIA, UNSPECIFIED (5) HTN (hypertension) Assessment/Plan: on meds Code(s): I10 - ESSENTIAL (PRIMARY) HYPERTENSION
[2018-05-11] MEDS ORDERED: PIPERACILLIN/TAZOBACTAM 2.25 GM VIAL IVPB ONE ×3 (01:09→17:33)
[2018-05-11] MEDS ORDERED: DEXTROSE 5%-WATER - 50 ML IVPB ONE ×3 (01:10→17:33)
[2018-05-11] MEDS: PIPERACILLIN/TAZOB 2.25 GM 2.25 GM in DEXTROSE 5%-WATER - 50 ML IVPB SCH ×3 (02:16→17:49)
[2018-05-11] MEDS: LACTULOSE 20 GM/30 ML UDC (FOR ORAL USE ONLY) GT SCH (09:29)
[2018-05-11] MEDS: VALPROATE SODIUM 250 MG/5 ML UNIT DOSE CUP GT SCH ×2 (09:29→22:05)
[2018-05-11] MEDS: RANITIDINE HCL 150 MG/10 ML UNIT-DOSE GT SCH ×2 (09:29→22:06)
[2018-05-11] MEDS: methylPREDNISolone NA SUCC 40 MG/1 ML VIAL IVPUSH SCH (09:29)
[2018-05-11] MEDS: amLODIPine BESYLATE 2.5 MG TABLET (FP) GT SCH (09:29)
[2018-05-11] MEDS: METOPROLOL TARTRATE 50 MG TABLET (FP) GT SCH ×2 (09:29→22:07)
[2018-05-11] MEDS: METOCLOPRAMIDE HCL 5 MG/5 ML UNIT DOSE CUP GT SCH ×4 (09:30→22:06)
[2018-05-11] MEDS: HEPARIN NA (PORCINE) 5,000 UNITS/ML 1ML VIAL SQ SCH ×2 (09:30→22:07)
[2018-05-11] MEDS: TOPIRAMATE 200 MG TABLET (FP) GT SCH ×2 (09:31→22:08)
[2018-05-11] MEDS: levETIRAcetam 500 MG/5 ML ORAL SOLUTION (UNIT-DOSE CUPS) GT SCH ×2 (09:31→22:07)
[2018-05-11] MEDS: PHENobarbital 30 MG TABLET GT SCH ×2 (09:31→21:59)
[2018-05-11] MEDS: NYSTATIN 100,000 UNIT/GM TOPICAL CREAM 15 GM TUBE TP SCH ×2 (09:32→22:07)
[2018-05-11] MEDS: NYSTATIN POWDER 100,000 UNITS/GM - 15 GM TOPICAL POWDER TP SCH (09:33)
--- NOTE | 2018-05-11 12:53 | PN ---
Progress Note, Physician - Current Medication List Current Medications: Active Medications Albuterol/Ipratropium (Duoneb -) 1 amp NEB Q4H PRN PRN Reason: SHORTNESS OF BREATH Last Admin: 05/09/18 19:28 Dose: 1 amp Amlodipine Besylate (Norvasc -) 2.5 mg GT DAILY [facility] Last Admin: 05/11/18 09:29 Dose: 2.5 mg Atorvastatin Calcium (Lipitor -) 20 mg GT HS [facility] Last Admin: 05/10/18 22:00 Dose: 20 mg Heparin Sodium (Porcine) (Heparin -) 5,000 unit SQ BID [facility] Last Admin: 05/11/18 09:30 Dose: 5,000 unit Piperacillin Sod/Tazobactam (Sod 2.25 gm/ Dextrose) 50 mls @ 100 mls/hr IVPB Q8H-IV [facility]; Protocol Last Admin: 05/11/18 09:29 Dose: 100 mls/hr Lactulose (Cephulac (Oral Use)) 20 gm GT DAILY [facility] Last Admin: 05/11/18 09:29 Dose: 20 gm Levetiracetam (Keppra Oral Solution -) 1,500 mg GT BID [facility] Last Admin: 05/11/18 09:31 Dose: 1,500 mg Methylprednisolone Sodium Succinate (Solu-Medrol -) 40 mg IVPUSH DAILY [facility] Last Admin: 05/11/18 09:29 Dose: 40 mg Metoclopramide HCl (Reglan Oral Solution -) 5 mg GT QID [facility] Last Admin: 05/11/18 09:30 Dose: 5 mg Metoprolol Tartrate (Lopressor -) 50 mg GT BID [facility] Last Admin: 05/11/18 09:29 Dose: 50 mg Nystatin (Mycostatin Cream -) 1 applic TP BID [facility] Last Admin: 05/11/18 09:32 Dose: 1 applic Nystatin (Nystop Powder -) 1 applic TP BID [facility] Last Admin: 05/11/18 09:33 Dose: 1 applic Phenobarbital (Phenobarbital -) 30 mg GT BID [facility] Last Admin: 05/11/18 09:31 Dose: 30 mg Ranitidine HCl (Zantac Oral Solution -) 150 mg GT BID [facility] Last Admin: 05/11/18 09:29 Dose: 150 mg Scopolamine HBr (Transderm-Scop -) 1 patch TD Q72H [facility] Last Admin: 03/06/19 18:54 Dose: 1 patch Topiramate (Topamax -) 200 mg GT BID [facility] Last Admin: 05/11/18 09:31 Dose: 200 mg Valproate Sodium (Depakene -) 750 mg GT BID [facility] Last Admin: 05/11/18 09:29 Dose: 750 mg - Objective Vital Signs: Vital Signs Temperature 98 F 05/11/18 08:48 Pulse Rate 84 05/11/18 10:00 Respiratory Rate 22 H 05/11/18 08:48 Blood Pressure 127/63 05/11/18 10:00 O2 Sat by Pulse Oximetry (%) 97 05/11/18 10:00 Constitutional: Yes: No Distress HENT: Yes: Atraumatic Neck: Yes: Supple Cardiovascular: Yes: Regular Rate and Rhythm Respiratory: Yes: Rhonchi Gastrointestinal: Yes: Normal Bowel Sounds Extremities: Yes: WNL Edema: No Neurological: Yes: Alert Labs: CBC, BMP 05/08/18 12:26 05/08/18 12:26 Problem List - Problems (1) Hypoxia Assessment/Plan: on oxygen frequent aspirations scopolamine patch to dry secretions iv steroids iv abx Code(s): R09.02 - HYPOXEMIA (2) Feeding by G-tube Code(s): Z93.1 - GASTROSTOMY STATUS (3) Functional quadriplegia Code(s): R53.2 - FUNCTIONAL QUADRIPLEGIA (4) HLD (hyperlipidemia) Assessment/Plan: on meds Code(s): E78.5 - HYPERLIPIDEMIA, UNSPECIFIED (5) HTN (hypertension) Assessment/Plan: on meds Code(s): I10 - ESSENTIAL (PRIMARY) HYPERTENSION
--- NOTE | 2018-05-11 15:29 | PN ---
Progress Note, Physician History of Present Illness: stable breathing still fast but improving - Current Medication List Current Medications: Active Medications Albuterol/Ipratropium (Duoneb -) 1 amp NEB Q4H PRN PRN Reason: SHORTNESS OF BREATH Last Admin: 05/09/18 19:28 Dose: 1 amp Amlodipine Besylate (Norvasc -) 2.5 mg GT DAILY [facility] Last Admin: 05/11/18 09:29 Dose: 2.5 mg Atorvastatin Calcium (Lipitor -) 20 mg GT HS [facility] Last Admin: 05/10/18 22:00 Dose: 20 mg Heparin Sodium (Porcine) (Heparin -) 5,000 unit SQ BID [facility] Last Admin: 05/11/18 09:30 Dose: 5,000 unit Piperacillin Sod/Tazobactam (Sod 2.25 gm/ Dextrose) 50 mls @ 100 mls/hr IVPB Q8H-IV [facility]; Protocol Last Admin: 05/11/18 09:29 Dose: 100 mls/hr Lactulose (Cephulac (Oral Use)) 20 gm GT DAILY [facility] Last Admin: 05/11/18 09:29 Dose: 20 gm Levetiracetam (Keppra Oral Solution -) 1,500 mg GT BID [facility] Last Admin: 05/11/18 09:31 Dose: 1,500 mg Methylprednisolone Sodium Succinate (Solu-Medrol -) 40 mg IVPUSH DAILY [facility] Last Admin: 05/11/18 09:29 Dose: 40 mg Metoclopramide HCl (Reglan Oral Solution -) 5 mg GT QID [facility] Last Admin: 05/11/18 14:27 Dose: 5 mg Metoprolol Tartrate (Lopressor -) 50 mg GT BID [facility] Last Admin: 05/11/18 09:29 Dose: 50 mg Nystatin (Mycostatin Cream -) 1 applic TP BID [facility] Last Admin: 05/11/18 09:32 Dose: 1 applic Nystatin (Nystop Powder -) 1 applic TP BID [facility] Last Admin: 05/11/18 09:33 Dose: 1 applic Phenobarbital (Phenobarbital -) 30 mg GT BID [facility] Last Admin: 05/11/18 09:31 Dose: 30 mg Ranitidine HCl (Zantac Oral Solution -) 150 mg GT BID [facility] Last Admin: 05/11/18 09:29 Dose: 150 mg Scopolamine HBr (Transderm-Scop -) 1 patch TD Q72H [facility] Last Admin: 05/08/18 18:54 Dose: 1 patch Topiramate (Topamax -) 200 mg GT BID [facility] Last Admin: 05/11/18 09:31 Dose: 200 mg Valproate Sodium (Depakene -) 750 mg GT BID [facility] Last Admin: 05/11/18 09:29 Dose: 750 mg - Objective Vital Signs: Vital Signs Temperature 99.2 F 05/11/18 15:08 Pulse Rate 88 05/11/18 15:08 Respiratory Rate 22 H 05/11/18 15:08 Blood Pressure 148/79 05/11/18 15:08 O2 Sat by Pulse Oximetry (%) 98 05/11/18 10:30 Constitutional: Yes: Calm, Mild Distress Cardiovascular: Yes: Regular Rate and Rhythm Respiratory: Yes: Regular, Poor Air Entry (bases) Gastrointestinal: Yes: Normal Bowel Sounds, Soft, Other (peg in place) Musculoskeletal: Yes: WNL Extremities: Yes: Other Neurological: Yes: Alert, Other Psychiatric: Yes: Other Labs: CBC, BMP 05/08/18 12:26 05/08/18 12:26 Assessment/Plan Problem List - Problems (1) Hypoxia Code(s): R09.02 - HYPOXEMIA (2) Feeding by G-tube Code(s): Z93.1 - GASTROSTOMY STATUS (3) Functional quadriplegia Code(s): R53.2 - FUNCTIONAL QUADRIPLEGIA (4) HLD (hyperlipidemia) Code(s): E78.5 - HYPERLIPIDEMIA, UNSPECIFIED (5) HTN (hypertension) Code(s): I10 - ESSENTIAL (PRIMARY) HYPERTENSION aspiration pn plan continue abx resp support nutrition will see how patient progresses
[2018-05-11] MEDS ORDERED: PT OWN MED DRAWER 7, Y5N ONE (17:33)
[2018-05-11] MEDS: SCOPOLAMINE HYDROBROMIDE 1 PATCH PATCH.TD72 TD SCH (18:56)
[2018-05-11] MEDS: ATORVASTATIN CA 20 MG TABLET (FP) GT SCH (22:07)
[2018-05-12] MEDS ORDERED: PIPERACILLIN/TAZOBACTAM 2.25 GM VIAL IVPB ONE ×3 (00:56→17:30)
[2018-05-12] MEDS ORDERED: DEXTROSE 5%-WATER - 50 ML IVPB ONE ×3 (00:56→17:30)
[2018-05-12] MEDS: PIPERACILLIN/TAZOB 2.25 GM 2.25 GM in DEXTROSE 5%-WATER - 50 ML IVPB SCH ×3 (03:25→17:49)
[2018-05-12] MEDS: NYSTATIN POWDER 100,000 UNITS/GM - 15 GM TOPICAL POWDER TP SCH ×3 (06:32→22:34)
[2018-05-12] MEDS: ALBUTEROL SO4 2.5/IPRATROPIUM 0.5 INH SOL 3 ML VIAL.NEB. NEB PRN ×3 (08:20→16:19)
[2018-05-12] MEDS ORDERED: PT OWN MED DRAWER 7, Y5N ONE ×3 (09:34→20:44)
[2018-05-12] MEDS: RANITIDINE HCL 150 MG/10 ML UNIT-DOSE GT SCH ×2 (09:39→22:28)
[2018-05-12] MEDS: METOPROLOL TARTRATE 50 MG TABLET (FP) GT SCH ×2 (09:39→22:28)
[2018-05-12] MEDS: amLODIPine BESYLATE 2.5 MG TABLET (FP) GT SCH (09:39)
[2018-05-12] MEDS: VALPROATE SODIUM 250 MG/5 ML UNIT DOSE CUP GT SCH ×2 (09:39→22:27)
[2018-05-12] MEDS: METOCLOPRAMIDE HCL 5 MG/5 ML UNIT DOSE CUP GT SCH ×4 (09:40→22:27)
[2018-05-12] MEDS: LACTULOSE 20 GM/30 ML UDC (FOR ORAL USE ONLY) GT SCH (09:40)
[2018-05-12] MEDS: TOPIRAMATE 200 MG TABLET (FP) GT SCH ×2 (09:40→22:27)
[2018-05-12] MEDS: levETIRAcetam 500 MG/5 ML ORAL SOLUTION (UNIT-DOSE CUPS) GT SCH ×2 (09:40→22:27)
[2018-05-12] MEDS: HEPARIN NA (PORCINE) 5,000 UNITS/ML 1ML VIAL SQ SCH ×2 (09:41→22:28)
[2018-05-12] MEDS: methylPREDNISolone NA SUCC 40 MG/1 ML VIAL IVPUSH SCH (09:41)
[2018-05-12] MEDS: NYSTATIN 100,000 UNIT/GM TOPICAL CREAM 15 GM TUBE TP SCH ×2 (11:50→22:34)
--- NOTE | 2018-05-12 14:20 | PN ---
Progress Note, Physician History of Present Illness: patient stable no new issues breathing much better d/w the staff lot of secretions still - Current Medication List Current Medications: Active Medications Albuterol/Ipratropium (Duoneb -) 1 amp NEB Q4H PRN PRN Reason: SHORTNESS OF BREATH Last Admin: 05/12/18 11:48 Dose: 1 amp Amlodipine Besylate (Norvasc -) 2.5 mg GT DAILY [facility] Last Admin: 05/12/18 09:39 Dose: 2.5 mg Atorvastatin Calcium (Lipitor -) 20 mg GT HS [facility] Last Admin: 05/11/18 22:07 Dose: 20 mg Heparin Sodium (Porcine) (Heparin -) 5,000 unit SQ BID [facility] Last Admin: 05/12/18 09:41 Dose: 5,000 unit Piperacillin Sod/Tazobactam (Sod 2.25 gm/ Dextrose) 50 mls @ 100 mls/hr IVPB Q8H-IV [facility]; Protocol Last Admin: 05/12/18 09:41 Dose: 100 mls/hr Lactulose (Cephulac (Oral Use)) 20 gm GT DAILY [facility] Last Admin: 05/12/18 09:40 Dose: 20 gm Levetiracetam (Keppra Oral Solution -) 1,500 mg GT BID [facility] Last Admin: 05/12/18 09:40 Dose: 1,500 mg Methylprednisolone Sodium Succinate (Solu-Medrol -) 40 mg IVPUSH DAILY [facility] Last Admin: 05/12/18 09:41 Dose: 40 mg Metoclopramide HCl (Reglan Oral Solution -) 5 mg GT QID [facility] Last Admin: 05/12/18 09:40 Dose: 5 mg Metoprolol Tartrate (Lopressor -) 50 mg GT BID [facility] Last Admin: 05/12/18 09:39 Dose: 50 mg Nystatin (Mycostatin Cream -) 1 applic TP BID [facility] Last Admin: 05/12/18 11:50 Dose: 1 applic Nystatin (Nystop Powder -) 1 applic TP BID [facility] Last Admin: 05/12/18 11:50 Dose: 1 applic Ranitidine HCl (Zantac Oral Solution -) 150 mg GT BID [facility] Last Admin: 05/12/18 09:39 Dose: 150 mg Scopolamine HBr (Transderm-Scop -) 1 patch TD Q72H [facility] Last Admin: 05/11/18 18:56 Dose: 1 patch Topiramate (Topamax -) 200 mg GT BID [facility] Last Admin: 05/12/18 09:40 Dose: 200 mg Valproate Sodium (Depakene -) 750 mg GT BID [facility] Last Admin: 05/12/18 09:39 Dose: 750 mg - Objective Vital Signs: Vital Signs Temperature 98.3 F 05/12/18 11:00 Pulse Rate 102 H 05/12/18 09:31 Respiratory Rate 22 H 05/12/18 09:31 Blood Pressure 117/62 05/12/18 09:31 O2 Sat by Pulse Oximetry (%) 98 05/11/18 21:55 Constitutional: Yes: No Distress, Calm Cardiovascular: Yes: Regular Rate and Rhythm Respiratory: Yes: Regular, Wheezes, Other (secretion) Gastrointestinal: Yes: Normal Bowel Sounds, Soft, Other (peg in place) Musculoskeletal: Yes: WNL Extremities: Yes: WNL Neurological: Yes: Alert, Other Psychiatric: Yes: Other Labs: CBC, BMP 05/08/18 12:26 05/08/18 12:26 Assessment/Plan Problem List - Problems (1) Hypoxia Code(s): R09.02 - HYPOXEMIA (2) Feeding by G-tube Code(s): Z93.1 - GASTROSTOMY STATUS (3) Functional quadriplegia Code(s): R53.2 - FUNCTIONAL QUADRIPLEGIA (4) HLD (hyperlipidemia) Code(s): E78.5 - HYPERLIPIDEMIA, UNSPECIFIED (5) HTN (hypertension) Code(s): I10 - ESSENTIAL (PRIMARY) HYPERTENSION aspiration pn plan continue abx will deescalate tomorrow if patient remains stable will switch to oral augmentin rest as per the team
--- NOTE | 2018-05-12 18:47 | PN ---
Progress Note, Physician - Current Medication List Current Medications: Active Medications Albuterol/Ipratropium (Duoneb -) 1 amp NEB Q4H PRN PRN Reason: SHORTNESS OF BREATH Last Admin: 05/12/18 16:19 Dose: 1 amp Amlodipine Besylate (Norvasc -) 2.5 mg GT DAILY [facility] Last Admin: 05/12/18 09:39 Dose: 2.5 mg Atorvastatin Calcium (Lipitor -) 20 mg GT HS [facility] Last Admin: 05/11/18 22:07 Dose: 20 mg Heparin Sodium (Porcine) (Heparin -) 5,000 unit SQ BID [facility] Last Admin: 05/12/18 09:41 Dose: 5,000 unit Piperacillin Sod/Tazobactam (Sod 2.25 gm/ Dextrose) 50 mls @ 100 mls/hr IVPB Q8H-IV [facility]; Protocol Last Admin: 05/12/18 17:49 Dose: 100 mls/hr Lactulose (Cephulac (Oral Use)) 20 gm GT DAILY [facility] Last Admin: 05/12/18 09:40 Dose: 20 gm Levetiracetam (Keppra Oral Solution -) 1,500 mg GT BID [facility] Last Admin: 05/12/18 09:40 Dose: 1,500 mg Methylprednisolone Sodium Succinate (Solu-Medrol -) 40 mg IVPUSH DAILY [facility] Last Admin: 05/12/18 09:41 Dose: 40 mg Metoclopramide HCl (Reglan Oral Solution -) 5 mg GT QID [facility] Last Admin: 05/12/18 17:50 Dose: 5 mg Metoprolol Tartrate (Lopressor -) 50 mg GT BID [facility] Last Admin: 05/12/18 09:39 Dose: 50 mg Nystatin (Mycostatin Cream -) 1 applic TP BID [facility] Last Admin: 05/12/18 11:50 Dose: 1 applic Nystatin (Nystop Powder -) 1 applic TP BID [facility] Last Admin: 05/12/18 11:50 Dose: 1 applic Ranitidine HCl (Zantac Oral Solution -) 150 mg GT BID [facility] Last Admin: 05/12/18 09:39 Dose: 150 mg Scopolamine HBr (Transderm-Scop -) 1 patch TD Q72H [facility] Last Admin: 05/11/18 18:56 Dose: 1 patch Topiramate (Topamax -) 200 mg GT BID [facility] Last Admin: 05/12/18 09:40 Dose: 200 mg Valproate Sodium (Depakene -) 750 mg GT BID [facility] Last Admin: 05/12/18 09:39 Dose: 750 mg - Objective Vital Signs: Vital Signs Temperature 97.7 F 05/12/18 18:16 Pulse Rate 95 H 05/12/18 18:16 Respiratory Rate 24 H 05/12/18 18:16 Blood Pressure 132/66 05/12/18 18:16 O2 Sat by Pulse Oximetry (%) 96 05/12/18 10:30 Constitutional: Yes: No Distress HENT: Yes: Atraumatic Neck: Yes: Supple Cardiovascular: Yes: Regular Rate and Rhythm Respiratory: Yes: Rhonchi Gastrointestinal: Yes: Normal Bowel Sounds Extremities: Yes: Deformity Neurological: Yes: Other (awake) Labs: CBC, BMP 05/08/18 12:26 05/08/18 12:26 Problem List - Problems (1) Hypoxia Assessment/Plan: on oxygen frequent aspirations scopolamine patch to dry secretions iv steroids iv abx Code(s): R09.02 - HYPOXEMIA (2) Feeding by G-tube Code(s): Z93.1 - GASTROSTOMY STATUS (3) Functional quadriplegia Code(s): R53.2 - FUNCTIONAL QUADRIPLEGIA (4) HLD (hyperlipidemia) Assessment/Plan: on meds Code(s): E78.5 - HYPERLIPIDEMIA, UNSPECIFIED (5) HTN (hypertension) Assessment/Plan: on meds Code(s): I10 - ESSENTIAL (PRIMARY) HYPERTENSION
[2018-05-12] MEDS: PHENobarbital 30 MG TABLET GT SCH (22:28)
[2018-05-12] MEDS: ATORVASTATIN CA 20 MG TABLET (FP) GT SCH (22:28)
[2018-05-13] MEDS ORDERED: DEXTROSE 5%-WATER - 50 ML IVPB ONE ×2 (00:59→10:50)
[2018-05-13] MEDS ORDERED: PIPERACILLIN/TAZOBACTAM 2.25 GM VIAL IVPB ONE ×2 (00:59→10:50)
[2018-05-13] MEDS: PIPERACILLIN/TAZOB 2.25 GM 2.25 GM in DEXTROSE 5%-WATER - 50 ML IVPB SCH ×2 (01:18→10:53)
[2018-05-13] MEDS: ALBUTEROL SO4 2.5/IPRATROPIUM 0.5 INH SOL 3 ML VIAL.NEB. NEB PRN (07:20)
[2018-05-13] MEDS ORDERED: PT OWN MED DRAWER 7, Y5N ONE ×3 (10:50→21:18)
[2018-05-13] MEDS: VALPROATE SODIUM 250 MG/5 ML UNIT DOSE CUP GT SCH ×2 (10:53→21:34)
[2018-05-13] MEDS: METOCLOPRAMIDE HCL 5 MG/5 ML UNIT DOSE CUP GT SCH ×4 (10:53→21:36)
[2018-05-13] MEDS: RANITIDINE HCL 150 MG/10 ML UNIT-DOSE GT SCH ×2 (10:53→21:37)
[2018-05-13] MEDS: METOPROLOL TARTRATE 50 MG TABLET (FP) GT SCH ×2 (10:54→21:36)
[2018-05-13] MEDS: levETIRAcetam 500 MG/5 ML ORAL SOLUTION (UNIT-DOSE CUPS) GT SCH ×2 (10:54→21:35)
[2018-05-13] MEDS: NYSTATIN 100,000 UNIT/GM TOPICAL CREAM 15 GM TUBE TP SCH ×2 (10:54→21:39)
[2018-05-13] MEDS: PHENobarbital 30 MG TABLET GT SCH ×2 (10:54→21:35)
[2018-05-13] MEDS: NYSTATIN POWDER 100,000 UNITS/GM - 15 GM TOPICAL POWDER TP SCH ×2 (10:54→21:39)
[2018-05-13] MEDS: amLODIPine BESYLATE 2.5 MG TABLET (FP) GT SCH (10:54)
[2018-05-13] MEDS: HEPARIN NA (PORCINE) 5,000 UNITS/ML 1ML VIAL SQ SCH ×2 (10:54→21:35)
[2018-05-13] MEDS: methylPREDNISolone NA SUCC 40 MG/1 ML VIAL IVPUSH SCH (10:56)
--- NOTE | 2018-05-13 11:42 | PN ---
Progress Note, Physician History of Present Illness: patient doing well much calmer breathing well still need ing support of oxygen - Current Medication List Current Medications: Active Medications Albuterol/Ipratropium (Duoneb -) 1 amp NEB Q4H PRN PRN Reason: SHORTNESS OF BREATH Last Admin: 05/13/18 07:20 Dose: 1 amp Amlodipine Besylate (Norvasc -) 2.5 mg GT DAILY [facility] Last Admin: 05/13/18 10:54 Dose: 2.5 mg Amoxicillin/Clavulanate Potassium (Augmentin - 875mg Tablet) 1 tab PO BID@0800, 1730 [facility] Atorvastatin Calcium (Lipitor -) 20 mg GT HS [facility] Last Admin: 05/12/18 22:28 Dose: 20 mg Heparin Sodium (Porcine) (Heparin -) 5,000 unit SQ BID [facility] Last Admin: 05/13/18 10:54 Dose: 5,000 unit Levetiracetam (Keppra Oral Solution -) 1,500 mg GT BID [facility] Last Admin: 05/13/18 10:54 Dose: 1,500 mg Methylprednisolone Sodium Succinate (Solu-Medrol -) 40 mg IVPUSH DAILY [facility] Last Admin: 05/13/18 10:56 Dose: 40 mg Metoclopramide HCl (Reglan Oral Solution -) 5 mg GT QID [facility] Last Admin: 05/13/18 10:53 Dose: 5 mg Metoprolol Tartrate (Lopressor -) 50 mg GT BID [facility] Last Admin: 05/13/18 10:54 Dose: 50 mg Nystatin (Mycostatin Cream -) 1 applic TP BID [facility] Last Admin: 05/13/18 10:54 Dose: 1 applic Nystatin (Nystop Powder -) 1 applic TP BID [facility] Last Admin: 05/13/18 10:54 Dose: 1 applic Phenobarbital (Phenobarbital -) 30 mg GT BID [facility] Last Admin: 05/13/18 10:54 Dose: 30 mg Ranitidine HCl (Zantac Oral Solution -) 150 mg GT BID [facility] Last Admin: 05/13/18 10:53 Dose: 150 mg Scopolamine HBr (Transderm-Scop -) 1 patch TD Q72H [facility] Last Admin: 05/11/18 18:56 Dose: 1 patch Topiramate (Topamax -) 200 mg GT BID [facility] Last Admin: 05/12/18 22:27 Dose: 200 mg Valproate Sodium (Depakene -) 750 mg GT BID [facility] Last Admin: 05/13/18 10:53 Dose: 750 mg - Objective Vital Signs: Vital Signs Temperature 97.3 F L 05/13/18 09:28 Pulse Rate 94 H 05/13/18 09:28 Respiratory Rate 20 05/13/18 09:28 Blood Pressure 123/60 05/13/18 09:28 O2 Sat by Pulse Oximetry (%) 96 05/12/18 21:00 Constitutional: Yes: No Distress, Calm Cardiovascular: Yes: Regular Rate and Rhythm Respiratory: Yes: Regular, CTA Bilaterally Gastrointestinal: Yes: Normal Bowel Sounds, Soft, Other (peg in place) Musculoskeletal: Yes: WNL Extremities: Yes: WNL Neurological: Yes: Alert, Oriented Psychiatric: Yes: Alert, Oriented Labs: CBC, BMP 05/08/18 12:26 05/08/18 12:26 Assessment/Plan Problem List - Problems (1) Hypoxia Code(s): R09.02 - HYPOXEMIA (2) Feeding by G-tube Code(s): Z93.1 - GASTROSTOMY STATUS (3) Functional quadriplegia Code(s): R53.2 - FUNCTIONAL QUADRIPLEGIA (4) HLD (hyperlipidemia) Code(s): E78.5 - HYPERLIPIDEMIA, UNSPECIFIED (5) HTN (hypertension) Code(s): I10 - ESSENTIAL (PRIMARY) HYPERTENSION aspiration pn plan changed abx to oral augmentin 875 mg po bid for another 5 days thro the g tube rest as per the team nutrition patient is still needing oxygen
[2018-05-13] MEDS: TOPIRAMATE 200 MG TABLET (FP) GT SCH ×2 (11:59→21:37)
[2018-05-13] MEDS: AMOX TR/POT CLAV 875MG/125MG TABLETS (FP) PO SCH (17:10)
--- NOTE | 2018-05-13 19:55 | PN ---
Progress Note, Physician - Current Medication List Current Medications: Active Medications Albuterol/Ipratropium (Duoneb -) 1 amp NEB Q4H PRN PRN Reason: SHORTNESS OF BREATH Last Admin: 05/13/18 07:20 Dose: 1 amp Amlodipine Besylate (Norvasc -) 2.5 mg GT DAILY [facility] Last Admin: 05/13/18 10:54 Dose: 2.5 mg Amoxicillin/Clavulanate Potassium (Augmentin - 875mg Tablet) 1 tab PO BID@0800, 1730 [facility] Last Admin: 05/13/18 17:10 Dose: 1 tab Atorvastatin Calcium (Lipitor -) 20 mg GT HS [facility] Last Admin: 05/12/18 22:28 Dose: 20 mg Heparin Sodium (Porcine) (Heparin -) 5,000 unit SQ BID [facility] Last Admin: 05/13/18 10:54 Dose: 5,000 unit Levetiracetam (Keppra Oral Solution -) 1,500 mg GT BID [facility] Last Admin: 05/13/18 10:54 Dose: 1,500 mg Metoclopramide HCl (Reglan Oral Solution -) 5 mg GT QID [facility] Last Admin: 05/13/18 17:09 Dose: 5 mg Metoprolol Tartrate (Lopressor -) 50 mg GT BID [facility] Last Admin: 05/13/18 10:54 Dose: 50 mg Nystatin (Mycostatin Cream -) 1 applic TP BID [facility] Last Admin: 05/13/18 10:54 Dose: 1 applic Nystatin (Nystop Powder -) 1 applic TP BID [facility] Last Admin: 05/13/18 10:54 Dose: 1 applic Phenobarbital (Phenobarbital -) 30 mg GT BID [facility] Last Admin: 05/13/18 10:54 Dose: 30 mg Prednisone (Deltasone -) 20 mg PO DAILY [facility] Ranitidine HCl (Zantac Oral Solution -) 150 mg GT BID [facility] Last Admin: 05/13/18 10:53 Dose: 150 mg Scopolamine HBr (Transderm-Scop -) 1 patch TD Q72H [facility] Last Admin: 05/11/18 18:56 Dose: 1 patch Topiramate (Topamax -) 200 mg GT BID [facility] Last Admin: 05/13/18 11:59 Dose: 200 mg Valproate Sodium (Depakene -) 750 mg GT BID [facility] Last Admin: 05/13/18 10:53 Dose: 750 mg - Objective Vital Signs: Vital Signs Temperature 98.3 F 05/13/18 18:00 Pulse Rate 72 05/13/18 18:00 Respiratory Rate 16 05/13/18 18:00 Blood Pressure 115/59 L 05/13/18 18:00 O2 Sat by Pulse Oximetry (%) 94 L 05/13/18 09:00 Constitutional: Yes: No Distress HENT: Yes: Atraumatic Neck: Yes: Supple Cardiovascular: Yes: Regular Rate and Rhythm Respiratory: Yes: Rhonchi Gastrointestinal: Yes: Normal Bowel Sounds Extremities: Yes: Deformity Edema: No Neurological: Yes: Other (awake) Labs: CBC, BMP 05/08/18 12:26 05/08/18 12:26 Problem List - Problems (1) Hypoxia Assessment/Plan: on oxygen frequent aspirations scopolamine patch to dry secretions po steroids po abx Code(s): R09.02 - HYPOXEMIA (2) Feeding by G-tube Code(s): Z93.1 - GASTROSTOMY STATUS (3) Functional quadriplegia Code(s): R53.2 - FUNCTIONAL QUADRIPLEGIA (4) HLD (hyperlipidemia) Assessment/Plan: on meds Code(s): E78.5 - HYPERLIPIDEMIA, UNSPECIFIED (5) HTN (hypertension) Assessment/Plan: on meds Code(s): I10 - ESSENTIAL (PRIMARY) HYPERTENSION
[2018-05-13] MEDS: ATORVASTATIN CA 20 MG TABLET (FP) GT SCH (23:59)
[2018-05-14] MEDS: AMOX TR/POT CLAV 875MG/125MG TABLETS (FP) PO SCH ×2 (08:17→17:04)
[2018-05-14] MEDS: VALPROATE SODIUM 250 MG/5 ML UNIT DOSE CUP GT SCH (09:54)
[2018-05-14] MEDS: HEPARIN NA (PORCINE) 5,000 UNITS/ML 1ML VIAL SQ SCH (09:54)
[2018-05-14] MEDS: RANITIDINE HCL 150 MG/10 ML UNIT-DOSE GT SCH (09:54)
[2018-05-14] MEDS: METOPROLOL TARTRATE 50 MG TABLET (FP) GT SCH (09:54)
[2018-05-14] MEDS: METOCLOPRAMIDE HCL 5 MG/5 ML UNIT DOSE CUP GT SCH ×3 (09:55→17:05)
[2018-05-14] MEDS: amLODIPine BESYLATE 2.5 MG TABLET (FP) GT SCH (09:55)
[2018-05-14] MEDS: levETIRAcetam 500 MG/5 ML ORAL SOLUTION (UNIT-DOSE CUPS) GT SCH (09:57)
[2018-05-14] MEDS: TOPIRAMATE 200 MG TABLET (FP) GT SCH (09:58)
[2018-05-14] MEDS ORDERED: predniSONE 20 MG TABLET (UD) GT SCH (10:00)
[2018-05-14] MEDS ORDERED: PNEUMOC 13-VAL CONJ-DIP CRM/PF 0.5 ML DISP.SYRIN IM ONE (10:00)
[2018-05-14] MEDS: PHENobarbital 30 MG TABLET GT SCH (10:47)
[2018-05-14] MEDS: NYSTATIN POWDER 100,000 UNITS/GM - 15 GM TOPICAL POWDER TP SCH (12:41)
[2018-05-14] MEDS: NYSTATIN 100,000 UNIT/GM TOPICAL CREAM 15 GM TUBE TP SCH (12:41)
--- NOTE | 2018-05-14 13:18 | DS ---
Physical Examination Vital Signs: Vital Signs Temperature 97.9 F 05/14/18 10:00 Pulse Rate 76 05/14/18 10:00 Respiratory Rate 18 05/14/18 10:00 Blood Pressure 119/60 05/14/18 10:00 O2 Sat by Pulse Oximetry (%) 95 05/13/18 21:00 Labs: CBC, BMP 05/08/18 12:26 05/08/18 12:26 Discharge Summary Reason For Visit: ASPIRATION PNEUMONIA/ACUTE EXACERBATION OF CHRONIC Current Active Problems Aspiration pneumonia (Acute) COPD exacerbation (Acute) Hypoxia (Acute) - Instructions Diet, Activity, Other Instructions: FREQUENT SUCTIONING Q4HRS, NASAL O2 3L CONTINUOUSLY AND KEEP O2 GREATER THAN 95 , AND ASPIRATION PRECAUTIONS . continue prednisone as directed continue antibiotic for 5 more days - Home Medications Comprehensive Discharge Medication List: Ambulatory Orders Alendronate Sodium [Binosto] 70 mg GT WEEKLY 04/22/18 Amlodipine Besylate 2.5 mg GT DAILY 04/22/18 Ascorbic Acid 500 mg GT BID 04/22/18 Budesonide 1 mg IH BID 04/22/18 Lactulose 30 ml GT DAILY 04/22/18 Metoclopramide HCl 5 mg GT QID 04/22/18 Metoprolol Tartrate [Lopressor -] 50 mg GT BID 04/22/18 Omeprazole 20 mg GT DAILY 04/22/18 Simvastatin 40 mg GT DAILY 04/22/18 Topiramate 1 tab GT DAILY 04/22/18 Valproic Acid (As Sodium Salt) [Valproic Acid] 750 mg GT Q12H 04/22/18 Albuterol 2.5/Ipratropium 0.5 [Duoneb -] 1 neb IH QID 04/29/18 Arformoterol Tartrate [Brovana] 15 mcg IH BID 04/29/18 Budesonide [Pulmicort 0.25 mg Nebulizer -] 1 neb PO BID 04/29/18 Calcium Carbonate/Vitamin D3 [Oyster Shell 500-Vit D3 200 Tb] 2 tab GT HS Multivitamin/Iron/Folic Acid [Centrum Adults Tablet] 15 ml GT DAILY 04/29/18 Olopatadine HCl [Pataday] 2.5 ml OU DAILY 04/29/18 Phenobarbital 32.4 mg GT BID 04/29/18 Protein Supplement [Promod] 30 ml GT DAILY 04/29/18 Topiramate 200 mg GT BID 04/29/18 levETIRAcetam [Keppra -] 1,500 mg GT BID 04/29/18 Prednisone 10 mg PO ASDIR #30 tablet 05/08/18 Scopolamine Hydrobromide [Transderm-Scop -] 1 patch TD Q72H #7 patch.[id number] Amox-Tr/K Cl [Augmentin 875-125mg Tablet -] 1 tab PO BID@0800,1730 #10 tablet predniSONE [Deltasone -] 20 mg GT DAILY #20 tablet 03d/w dr silver/02/20 dc d/w dr silver
--- NOTE | 2018-05-14 14:15 | PN ---
Progress Note, Physician History of Present Illness: stable no new issues breathing calmly - Current Medication List Current Medications: Active Medications Albuterol/Ipratropium (Duoneb -) 1 amp NEB Q4H PRN PRN Reason: SHORTNESS OF BREATH Last Admin: 05/13/18 07:20 Dose: 1 amp Amlodipine Besylate (Norvasc -) 2.5 mg GT DAILY [facility] Last Admin: 05/14/18 09:55 Dose: 2.5 mg Amoxicillin/Clavulanate Potassium (Augmentin - 875mg Tablet) 1 tab PO BID@0800, 1730 [facility] Last Admin: 05/14/18 08:17 Dose: 1 tab Atorvastatin Calcium (Lipitor -) 20 mg GT HS [facility] Last Admin: 05/13/18 23:59 Dose: 20 mg Heparin Sodium (Porcine) (Heparin -) 5,000 unit SQ BID [facility] Last Admin: 05/14/18 09:54 Dose: 5,000 unit Levetiracetam (Keppra Oral Solution -) 1,500 mg GT BID [facility] Last Admin: 05/14/18 09:57 Dose: 1,500 mg Metoclopramide HCl (Reglan Oral Solution -) 5 mg GT QID [facility] Last Admin: 05/14/18 13:38 Dose: 5 mg Metoprolol Tartrate (Lopressor -) 50 mg GT BID [facility] Last Admin: 05/14/18 09:54 Dose: 50 mg Nystatin (Mycostatin Cream -) 1 applic TP BID [facility] Last Admin: 05/14/18 12:41 Dose: 1 applic Nystatin (Nystop Powder -) 1 applic TP BID [facility] Last Admin: 05/14/18 12:41 Dose: 1 applic Phenobarbital (Phenobarbital -) 30 mg GT BID [facility] Last Admin: 05/14/18 10:47 Dose: 30 mg Prednisone (Deltasone -) 20 mg GT DAILY [facility] Last Admin: 05/14/18 09:55 Dose: 20 mg Ranitidine HCl (Zantac Oral Solution -) 150 mg GT BID [facility] Last Admin: 05/14/18 09:54 Dose: 150 mg Scopolamine HBr (Transderm-Scop -) 1 patch TD Q72H [facility] Last Admin: 05/11/18 18:56 Dose: 1 patch Topiramate (Topamax -) 200 mg GT BID [facility] Last Admin: 05/14/18 09:58 Dose: 200 mg Valproate Sodium (Depakene -) 750 mg GT BID [facility] Last Admin: 05/14/18 09:54 Dose: 750 mg - Objective Vital Signs: Vital Signs Temperature 97.9 F 05/14/18 10:00 Pulse Rate 76 05/14/18 10:00 Respiratory Rate 18 05/14/18 10:00 Blood Pressure 119/60 05/14/18 10:00 O2 Sat by Pulse Oximetry (%) 95 05/13/18 21:00 Constitutional: Yes: No Distress, Calm Cardiovascular: Yes: Regular Rate and Rhythm Respiratory: Yes: Regular, CTA Bilaterally Gastrointestinal: Yes: Normal Bowel Sounds, Soft, Other (peg in place) Musculoskeletal: Yes: WNL Extremities: Yes: WNL Neurological: Yes: Alert, Other Psychiatric: Yes: Other Labs: CBC, BMP 05/08/18 12:26 05/08/18 12:26 Assessment/Plan Problem List - Problems (1) Hypoxia Code(s): R09.02 - HYPOXEMIA (2) Feeding by G-tube Code(s): Z93.1 - GASTROSTOMY STATUS (3) Functional quadriplegia Code(s): R53.2 - FUNCTIONAL QUADRIPLEGIA (4) HLD (hyperlipidemia) Code(s): E78.5 - HYPERLIPIDEMIA, UNSPECIFIED (5) HTN (hypertension) Code(s): I10 - ESSENTIAL (PRIMARY) HYPERTENSION aspiration pn plan continue abx finish the oral course resp support nutrition
[2018-05-14] MEDS: SCOPOLAMINE HYDROBROMIDE 1 PATCH PATCH.TD72 TD SCH (17:04)
[2018-05-14 18:34] VITALS: BP 133/72; PULSE 73; TEMP 98.7
== END 2018-05-14 20:12 | disposition home or self-care (01) | DRG 177 ==
LOC: JER 10:22 → JERBED 15:15 → UNDOADMOB 15:15 → INTOOBSV 17:02 → OBSVTOIN 17:02 → JERBED 17:22 → J5S 18:21 → OBSVTOIN 05-10 11:30 → J5S 05-13 00:02
PROVIDERS: ADMIT Internal Medicine; ATTEND Internal Medicine
PROC: 3E0G76Z Introduction of Nutritional Substance into Upper GI, Via Natural or Artificial Opening (ICD-10-PCS; principal; 2018-05-09)
DX: J69.0 Pneumonitis due to inhalation of food and vomit (principal); R53.2 Functional quadriplegia; J44.1 Chronic obstructive pulmonary disease with (acute) exacerbation; G93.1 Anoxic brain damage, not elsewhere classified; R64 Cachexia; G80.9 Cerebral palsy, unspecified; H91.93 Unspecified hearing loss, bilateral; R09.02 Hypoxemia; Z93.1 Gastrostomy status; E78.5 Hyperlipidemia, unspecified; I10 Essential (primary) hypertension; Z68.26 Body mass index [BMI] 26.0-26.9, adult
CPT/HCPCS: 36415; 71045-TC-FY; 80053; 82550; 83880; 84484; 85025; 87040; 87324; 87449; 90670; 93005; 93010; 94640; 99284-25; G0378; J1644

== ENCOUNTER 2018-05-16 06:37 | Emergency (ER) | payer OTHER ==
[2018-05-16 06:48] VITALS: BMI 25.6
--- NOTE | 2018-05-16 07:34 | PDOC ---
History of Present Illness - General Chief Complaint: Shortness of Breath Stated Complaint: DIFFICULTY BREATHING Time Seen by Provider: 05/16/18 07:20 History Source: Care Provider (Facility member of staff at bedside), [facility] Records, Old Records Exam Limitations: Clinical Condition, Physical Impairment - History of Present Illness Initial Comments: HPI: 67 y/o female presenting to [facility] ER from [facility] for hypoxia to 85% and accessory muscle usage per facility nurse contacted via telephone. Pt is non-verbal at baseline. Facility healthcare network consultant at bedside is not familiar with patient and unable to provide HPI. Pt was first seen at this facility for similar complaints on 21 Apr 2018 and discharged on 26 Apr 2018. Then returned on 29 Apr 2018 and discharged on 07 May 2018. Then returned on 08 May 2018 and discharged on 14 May 2018. Advanced Directives: No CPR/chest compressions per [facility] form dated 04 September 2017 PCP: Karyn Torres or Alton Clement Medical Hx: - Left arm fracture - Anoxic brain injury - COPD, on oxygen therapy at baseline - Quadriplegia - PEG tube Past History - Past Medical History Allergies/Adverse Reactions: Allergies Allergy/AdvReac Type Severity Reaction Status Date / Time No Known Allergies Allergy Verified 05/16/18 06:44 Home Medications: Ambulatory Orders Alendronate Sodium [Binosto] 70 mg GT WEEKLY 04/22/18 Amlodipine Besylate 2.5 mg GT DAILY 04/22/18 Budesonide 1 mg IH BID 04/22/18 Lactulose 30 ml GT DAILY 04/22/18 Metoclopramide HCl 5 mg GT QID 04/22/18 Metoprolol Tartrate [Lopressor -] 50 mg GT BID 04/22/18 Omeprazole 20 mg GT DAILY 04/22/18 Simvastatin 40 mg GT DAILY 04/22/18 Topiramate 1 tab GT DAILY 04/22/18 Albuterol 2.5/Ipratropium 0.5 [Duoneb -] 1 neb IH QID 04/29/18 Arformoterol Tartrate [Brovana] 15 mcg IH BID 04/29/18 Multivitamin/Iron/Folic Acid [Centrum Adults Tablet] 15 ml GT DAILY 04/29/18 Phenobarbital 32.4 mg GT BID 04/29/18 Protein Supplement [Promod] 30 ml GT DAILY 04/29/18 Topiramate 200 mg GT BID 04/29/18 levETIRAcetam [Keppra -] 1,500 mg GT BID 04/29/18 Scopolamine Hydrobromide [Transderm-Scop -] 1 patch TD Q72H #7 patch.td72 Amox-Tr/K Cl [Augmentin 875-125mg Tablet -] 1 tab PO BID@0800,1730 #10 tablet predniSONE [Deltasone -] 20 mg GT DAILY #20 tablet 05/14/18 Ascorbic Acid [Vitamin C] 500 mg PO BID 05/16/18 Calcium Carbonate/Vitamin D3 [Oyster Shell Calcium-Vit D Tab] 2 tab GT HS Olopatadine HCl [Pataday] 1 drop OU DAILY 05/16/18 Zinc Oxide 20% Topical Oint 1 appful TD Q8H 05/16/18 CVA: Yes COPD: Yes HTN: Yes Hypercholesterolemia: Yes Other medical history: Cerebral palsy/brian hearing loss. Anoxic brain injury. - Surgical History GI Surgery: Yes (PEG tube) - Suicide/Smoking/Psychosocial Hx Smoking History: Unknown if ever smoked Have you smoked in the past 12 months: No Information on smoking cessation initiated: No Hx Alcohol Use: No Drug/Substance Use Hx: No Substance Use Type: None Hx Substance Use Treatment: No Review of Systems - Review of Systems Able to Perform ROS?: No (Pt baseline condition) *Physical Exam - Vital Signs Last Vital Signs Temp Pulse Resp BP Pulse Ox 97.9 F 112 H 24 H 144/96 95 05/16/18 06:44 05/16/18 06:44 05/16/18 06:44 05/16/18 06:44 05/16/18 06:44 - Physical Exam Comments: Constitutional: Non-toxic adult female in no acute distress or obvious discomfort. Found semi-fowlers on hospital bed. Asleep but easily arousable to verbal stimuli. Head: Normocephalic. No obvious external signs of trauma. Cardiovascular / Chest: Tachycardic rate and regular rhythm. No murmur, rubs, clicks, or gallops. Peripheral pulses: radial pulses full. Respiratory: NRB in place. Shallow breathing with mild retractions and grunting. Equal chest rise and fall. No stridor, no wheezing, no rhonchi. No focal consolidation. Gastrointestinal: abdomen is soft, non-tender, non-distended. PEG in LUQ; site well appearing. Neuro: Eyes open to verbal stimuli. MSK: Upper and lower limbs contracted with muscle wasting. Skin: Warm, dry, and intact. Moderate Sedation - Procedure Monitoring Vital Signs: Procedure Monitoring Vital Signs Temperature 97.9 F 05/16/18 06:44 Pulse Rate 112 H 05/16/18 06:44 Respiratory Rate 24 H 05/16/18 06:44 Blood Pressure 144/96 05/16/18 06:44 O2 Sat by Pulse Oximetry (%) 95 05/16/18 06:44 ED Treatment Course - LABORATORY CBC & Chemistry Diagram: 05/16/18 08:37 05/16/18 09:51 - ADDITIONAL ORDERS Additional order review: 05/16/18 05/16/18 05/16/18 09:51 08:58 08:54 Anticoagulation Therapy No Result Required. Puncture Site Left radial ABG pH 7.37 ABG pCO2 at Pt Temp 60.7 H ABG pO2 at Pt Temp 101 ABG HCO3 34.4 H ABG O2 Sat (Measured) 96.9 ABG O2 Content 20.4 ABG Base Excess 7.3 H Scott Test Positive Carboxyhemoglobin 1.0 Methemoglobin 0.4 O2 Delivery Device Nasal cannula Oxygen Flow Rate 4l Vent Mode No Result Required. Vent Rate No Result Required. Mechanical Rate No Result Required. Pressure Support Vent No Result Required. Sodium 134 L Potassium 3.6 Chloride 94 L Carbon Dioxide 36 H Anion Gap 5 L BUN 11 Creatinine 0.2 L Creat Clearance w eGFR > 60 Random Glucose 98 Lactic Acid Calcium 9.5 Total Bilirubin 0.3 AST 13 L ALT 20 Alkaline Phosphatase 157 H Creatine Kinase 38 Troponin I < 0.02 Total Protein 6.5 Albumin 2.6 L Urine Color Straw Urine Appearance Clear Urine pH 7.0 Ur Specific [place] 1.002 L Urine Protein Negative Urine Glucose (UA) Negative Urine Ketones Negative Urine Blood 2+ H Urine Nitrite Negative Urine Bilirubin Negative Urine Urobilinogen Negative Ur Leukocyte Esterase 1+ H Urine WBC (Auto) 4 Urine RBC (Auto) 1 Ur Epithelial Cells Rare Urine Bacteria Rare Urine Mucus Rare 05/16/18 05/16/18 08:37 08:37 Anticoagulation Therapy Puncture Site ABG pH ABG pCO2 at Pt Temp ABG pO2 at Pt Temp ABG HCO3 ABG O2 Sat (Measured) ABG O2 Content ABG Base Excess Scott Test Carboxyhemoglobin Methemoglobin O2 Delivery Device Oxygen Flow Rate Vent Mode Vent Rate Mechanical Rate Pressure Support Vent Sodium Cancelled Potassium Cancelled Chloride Cancelled Carbon Dioxide Cancelled Anion Gap Cancelled BUN Cancelled Creatinine Cancelled Creat Clearance w eGFR Cancelled Random Glucose Cancelled Lactic Acid 1.0 Calcium Cancelled Total Bilirubin Cancelled AST Cancelled ALT Cancelled Alkaline Phosphatase Cancelled Creatine Kinase Troponin I Cancelled Total Protein Cancelled Albumin Cancelled Urine Color Urine Appearance Urine pH Ur Specific [place] Urine Protein Urine Glucose (UA) Urine Ketones Urine Blood Urine Nitrite Urine Bilirubin Urine Urobilinogen Ur Leukocyte Esterase Urine WBC (Auto) Urine RBC (Auto) Ur Epithelial Cells Urine Bacteria Urine Mucus 05/16/18 08:37 RBC 4.29 MCV 93.1 MCHC 35.0 RDW 13.7 MPV 9.1 D Neutrophils % 73.8 Lymphocytes % 14.4 D Monocytes % 9.2 Eosinophils % 2.2 Basophils % 0.4 - RADIOLOGY Radiology Studies Ordered: Category Date Time Status CHEST X-RAY PORTABLE* [RAD] Stat Radiology 05/16/18 07:45 Taken Medical Decision Making - Medical Decision Making *Reviewed vital signs, nursing notes, and prior visit documentation (if available). 67 y/o female presenting for hypoxia on unknown oxygen therapy and accessory muscle usage. Multiple admissions for similar symptoms over past two months. No obvious respiratory distress. Down titrated oxygen requirement to home rate of 4LPM. Maintained SPO2 above 94%. ABG revealed CO2 retention but at the lowest level recorded at this facility. Likely secondary to known h/o of COPD. No leukocytosis or significant electrolyte derangement. CXR unremarkable for acute cardiopulmonary process per ED wet read. Formal radiology report pending. Suspect symptoms today are progression of disease versus baseline status. Discussed pt with trimming caser to determine if [facility] is the most appropriate facility. ED attending discussed case with pts facility MD Dr. Arya Clement. Will more closely monitor pt. Pt stable to return to [facility]. *DC/Admit/Observation/Transfer Diagnosis at time of Disposition: Shortness of breath - Discharge Dispostion Disposition: HOME Condition at time of disposition: Good Decision to Admit order: No - Referrals Referrals: Dedrick Marinelli MD [Primary Care Provider] - Nathaniel Bejarano MD [Staff Physician] - - Patient Instructions Printed Discharge Instructions: DI for Shortness of Breath Additional Instructions: Pt determined not to be in respiratory distress. Maintaining oxygen saturation above 94% on home oxygen requirement. Chest xray was unremarkable for acute changes from previous. Blood work was not suggestive for emergent condition. ED Attending discussed case with Dr. Arya Clement. Please contact Dr. Arya Clement for further instructions. Continue administering her medications as previously prescribed. No changes have been made to her regimen. Print Language: PALESTINIAN - Post Discharge Activity
--- NOTE | 2018-05-16 08:49 | PDOC ---
Attending Attestation - Resident Resident Name: Everardo Nelson - ED Attending Attestation I have performed the following: I have examined & evaluated the patient, The case was reviewed & discussed with the resident, I agree w/resident's findings & plan - HPI HPI: 05/16/18 08:46 67-year-old female with history of quadriplegia, bedbound, COPD on baseline oxygen from [facility] for evaluation of report of respiratory distress. Patient has had several transfers to this hospital, most recent discharge was 2 days ago. Per report, patient had labored breathing so EMS was activated. - Physicial Exam PE: 05/16/18 08:47 Afebrile, slight tachycardia of 105, O2 sat 94-96% on baseline 4 L Baseline contractures, nonverbal, bedbound Lungs sounds are clear without obvious crackles or wheezing, heart is regular - Medical Decision Making 05/16/18 08:48 67-year-old female with several hospital transfers from [place], [facility] for report of labored breathing this morning. Here, patient appears well without any respiratory distress and normal vital signs, no red flags on history or physical exam. We'll check labs and chest x-ray to rule out any new sources of infection Will involve case management regarding group home assessment patient Reassess Heart Score/ECG Review #1 ECG reviewed & interpreted by me at: 08:10 General ECG Interpretation: Sinus Rhythm, Normal Rate (slight tachy 104), Normal Intervals (qtc 405), No acute ischemic changes Compared to previous ECG there are: No significant change (05/08/18)
[2018-05-16 09:12] LABS: ARTERIAL BLD GAS O2 SATURATION 96.9 % (95-98); ARTERIAL BLOOD GAS BASE EXCESS 7.3 meq/l (-2-2); ARTERIAL BLOOD GAS PCO2 60.7 mmHg (35-45); ARTERIAL BLOOD GAS PO2 101 mmHg (80-105); ARTERIAL BLOOD GAS pH 7.37 (7.35-7.45)
[2018-05-16 09:13] LABS: URINE APPEARANCE CLEAR; URINE BILIRUBIN NEGATIVE (<2.0 mg/dL); URINE COLOR STRAW; URINE GLUCOSE (UA) NEGATIVE (NEGATIVE); URINE KETONE NEGATIVE (NEGATIVE); URINE LEUK ESTERASE 1+ (NEGATIVE); URINE NITRITE NEGATIVE (NEGATIVE); URINE PROTEIN NEGATIVE (NEGATIVE); URINE UROBILINOGEN NEGATIVE mg/dL (0.2-1.0)
[2018-05-16 09:14] LABS: EPI CELLS RARE /HPF (FEW); URINE BACTERIA RARE /hpf (NONE SEEN); URINE MUCUS RARE
[2018-05-16 09:26] LABS: ALLENS TEST POSITIVE
[2018-05-16 10:14] LABS: BASO % 0.4 % (0-2.0); EOS % 2.2 % (0-4.5); HEMATOCRIT 39.9 % (32.4-45.2); LYMPH % 14.4 % (8-40); MCH 32.6 pg (25.7-33.7); MEAN CELL VOLUME 93.1 fl (80-96); MEAN PLT VOLUME 9.1 fl (7.5-11.1); MONO % 9.2 % (3.8-10.2); NEUT % 73.8 % (42.8-82.8); PLATELET COUNT 245 K/MM3 (134-434); RBC 4.29 M/mm3 (3.60-5.2); RDW 13.7 % (11.6-15.6)
[2018-05-16 10:51] LABS: ALBUMIN 2.6 g/dl (3.4-5.0); ALK PHOS 157 U/L (45-117); ANION GAP 5 MMOL/L (8-16); BILIRUBIN,TOTAL 0.3 mg/dL (0.2-1); BLOOD UREA NITROGEN 11 mg/dL (7-18); CALCIUM 9.5 mg/dL (8.5-10.1); CHLORIDE 94 mmol/L (98-107); CO2 36 mmol/L (21-32); CREATININE 0.2 mg/dL (0.55-1.3); GLUCOSE,RANDOM 98 mg/dL (74-106); POTASSIUM 3.6 mmol/L (3.5-5.1); SGOT/AST 13 U/L (15-37); SGPT/ALT 20 U/L (13-61); SODIUM 134 mmol/L (136-145); TOT PROT 6.5 g/dl (6.4-8.2)
[2018-05-16 11:14] VITALS: TEMP 98.7
[2018-05-16 13:42] VITALS: BP 132/76; PULSE 104
--- NOTE | 2018-05-16 15:35 | EKG ---
Test Reason : Blood Pressure : / mmHG Vent. Rate : 104 BPM Atrial Rate : 104 BPM P-R Int : 116 ms QRS Dur : 068 ms QT Int : 308 ms P-R-T Axes : 066 082 052 degrees QTc Int : 405 ms SINUS TACHYCARDIA OTHERWISE NORMAL ECG WHEN COMPARED WITH ECG OF 08-MAY-2018 10:40, NO SIGNIFICANT CHANGE WAS FOUND Confirmed by BRINA MORTON MD ([id number]) on 05/16/2018 3:35:15 PM Referred By: Confirmed By:BRINA MORTON MD
== END 2018-05-16 13:42 ==
LOC: JER 06:37
DX: R09.02 Hypoxemia (principal); J44.9 Chronic obstructive pulmonary disease, unspecified; Z99.81 Dependence on supplemental oxygen; G93.1 Anoxic brain damage, not elsewhere classified; R53.2 Functional quadriplegia; I10 Essential (primary) hypertension; E78.00 Pure hypercholesterolemia, unspecified; H91.93 Unspecified hearing loss, bilateral; Z74.01 Bed confinement status; Z93.1 Gastrostomy status
CPT/HCPCS: 36415; 36600; 71045-TC-FY; 80053; 81003; 81015; 82375; 82550; 82803; 83050; 83605; 84484; 85025; 87086; 87186; 87804; 93005; 93010; 99285-25

== ENCOUNTER 2018-05-29 11:05 | Emergency (ER) | payer OTHER ==
[2018-05-29 11:27] VITALS: TEMP 98.5; BMI 31.4
--- NOTE | 2018-05-29 12:54 | PDOC ---
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 with, hypoxia. As per patients aid at bedside, patients O2 saturation went down 80-85% prompting her arrival to the ED. Patients aid denies any recent cough, cold, nasal congestion, or fevers. History was obtained via EMR and patient's aid at bedside secondary to Allergies: NKDA Social history: Resident at [facility] <Aubrie Carson - Last Filed: 05/29/18 13:44> <Gilberto Pete - Last Filed: 05/29/18 15:52> - General Chief Complaint: Shortness of Breath Stated Complaint: Shortness of Breath Time Seen by Provider: 05/29/18 12:53 Past History <Aubrie Carson - Last Filed: 05/29/18 13:44> - Past Medical History CVA: Yes COPD: Yes HTN: Yes Hypercholesterolemia: Yes - Surgical History GI Surgery: Yes (PEG tube) - Immunization History Immunization Up to Date: No - Suicide/Smoking/Psychosocial Hx Smoking History: Never smoked Have you smoked in the past 12 months: No Information on smoking cessation initiated: No Hx Alcohol Use: No Drug/Substance Use Hx: No Substance Use Type: None Hx Substance Use Treatment: No <Gilberto Pete - Last Filed: 05/29/18 15:52> - Past Medical History Allergies/Adverse Reactions: Allergies Allergy/AdvReac Type Severity Reaction Status Date / Time No Known Allergies Allergy Verified 05/16/18 06:44 Home Medications: Ambulatory Orders Alendronate Sodium [Binosto] 70 mg GT WEEKLY 04/22/18 Amlodipine Besylate 2.5 mg GT DAILY 04/22/18 Budesonide 1 mg IH BID 04/22/18 Lactulose 30 ml GT DAILY 04/22/18 Metoclopramide HCl 5 mg GT QID 04/22/18 Metoprolol Tartrate [Lopressor -] 50 mg GT BID 04/22/18 Omeprazole 20 mg GT DAILY 04/22/18 Simvastatin 40 mg GT DAILY 04/22/18 Topiramate 1 tab GT DAILY 04/22/18 Albuterol 2.5/Ipratropium 0.5 [Duoneb -] 1 neb IH QID 04/29/18 Arformoterol Tartrate [Brovana] 15 mcg IH BID 04/29/18 Multivitamin/Iron/Folic Acid [Centrum Adults Tablet] 15 ml GT DAILY 04/29/18 Phenobarbital 32.4 mg GT BID 04/29/18 Protein Supplement [Promod] 30 ml GT DAILY 04/29/18 Topiramate 225 mg GT BID 04/29/18 Scopolamine Hydrobromide [Transderm-Scop -] 1 patch TD Q72H #7 patch.td72 Amox-Tr/K Cl [Augmentin 875-125mg Tablet -] 1 tab PO BID@0800,1730 #10 tablet predniSONE [Deltasone -] 20 mg GT DAILY #20 tablet 05/14/18 Ascorbic Acid [Vitamin C] 500 mg PO BID 05/16/18 Calcium Carbonate/Vitamin D3 [Oyster Shell Calcium-Vit D Tab] 2 tab GT HS Olopatadine HCl [Pataday] 1 drop OU DAILY 05/16/18 Zinc Oxide 20% Topical Oint 1 appful TD Q8H 05/16/18 Clobetasol Propionate/Emoll [Clobetasol Emollient 0.05% Crm] 0 gm TP 05/29/18 Silver Sulfadiazine 1% Top Cr [Silvadene -] 1 applic TP BID 05/29/18 Valproic Acid (As Sodium Salt) [Valproic Acid] 15 ml GT Q12H 05/29/18 levETIRAcetam [Keppra Oral Solution -] 1,500 mg GT BID 05/29/18 Review of Systems - Review of Systems Able to Perform ROS?: No Comments:: 05/29/18 13:45 Unable to perform an ROS secondary to patient's MR. <Aubrie Carson - Last Filed: 05/29/18 13:44> *Physical Exam - Vital Signs Last Vital Signs Temp Pulse Resp BP Pulse Ox 98.5 F 78 20 160/93 98 05/29/18 11:23 05/29/18 11:23 05/29/18 11:23 05/29/18 11:23 05/29/18 11:30 <Aubrie Carson - Last Filed: 05/29/18 13:44> - Vital Signs Last Vital Signs Temp Pulse Resp BP Pulse Ox 98.5 F 78 20 160/93 98 05/29/18 11:23 05/29/18 11:23 05/29/18 11:23 05/29/18 11:23 05/29/18 11:30 - Physical Exam Comments: 05/29/18 15:48 Patient is nonverbal and does not follow commands Microcephalic, atraumatic Bilateral corneal clouding Patient's contracted Left upper extremity humeral brace is noted; Intermittent rhonchi at the bases b/l <Gilberto Pete - Last Filed: 05/29/18 15:52> ED Treatment Course - Medications Given in the ED: ED Medications Discontinued Medications Generic Name Dose Route Start Last Admin Trade Name Freq PRN Reason Stop Dose Admin Albuterol/Ipratropium 1 amp 05/29/18 13:03 05/29/18 13:31 Duoneb - NEB 05/29/18 13:04 1 amp ONCE ONE Administration <Aubrie Carson - Last Filed: 05/29/18 13:44> Medical Decision Making - Medical Decision Making 05/29/18 15:50 67-year-old female with history of advanced MR, asthma, blindness, presents from [facility] for an episode of desaturation which resolved in route to the ER when the patient was repositioned. In the ER, patient is afebrile, with oxygen saturation of 98% on room air. Chest x-ray reveals no evidence of infiltrate or effusion. It's unchanged from previous. No acute issues are present. Will discharge. <Gilberto Pete - Last Filed: 05/29/18 15:52> *DC/Admit/Observation/Transfer - Attestations Scribe Attestion: 05/29/18 13:45 Documentation prepared by Aubrie Carson, acting as medical education manager for Gilberto Pete MD. <Aubrie Carson - Last Filed: 05/29/18 13:44> <Gilberto Pete - Last Filed: 05/29/18 15:52> Diagnosis at time of Disposition: Hypoxia - Discharge Dispostion Disposition: HOME Condition at time of disposition: Stable - Referrals Referrals: pmd, one week [Other] - Patient Instructions Printed Discharge Instructions: DI for Hypoxia
[2018-05-29] MEDS ORDERED: ALBUTEROL SO4 2.5/IPRATROPIUM 0.5 INH SOL 3 ML VIAL.NEB. NEB ONE ×2 (13:03→13:28)
[2018-05-29 16:33] VITALS: BP 136/78; PULSE 95
== END 2018-05-29 16:37 | disposition home or self-care (01) ==
LOC: JER 11:05
PROC: 3E0F7GC Introduction of Other Therapeutic Substance into Respiratory Tract, Via Natural or Artificial Opening (ICD-10-PCS; principal; 2018-05-29)
DX: R09.02 Hypoxemia (principal); F79 Unspecified intellectual disabilities; J45.909 Unspecified asthma, uncomplicated; H54.7 Unspecified visual loss; H91.90 Unspecified hearing loss, unspecified ear; I10 Essential (primary) hypertension; E78.00 Pure hypercholesterolemia, unspecified; Z96.89 Presence of other specified functional implants
CPT/HCPCS: 71045-TC-FY; 94640; 99282-25

== ENCOUNTER 2018-06-12 14:29 | Inpatient (IN) | payer OTHER ==
--- NOTE | 2018-06-12 14:39 | PDOC ---
History of Present Illness - General Stated Complaint: Shortness of Breath Time Seen by Provider: 06/12/18 14:39 - History of Present Illness Initial Comments: 67 y/o female presenting to [facility] ER from [facility] for hypoxia and increased WOB. Patient has had a few presentations to our ED for very similar symptoms including 10 days prior and was never found to be febrile , or otherwise ill. However, today she is more tachypnic. Paperwork does not corroborate fevers, chills cough, or other symptoms Patient is non verbal and does not appear to be in distress otherwise. 06/12/18 15:14 Past History - Past Medical History Allergies/Adverse Reactions: Allergies Allergy/AdvReac Type Severity Reaction Status Date / Time No Known Allergies Allergy Verified 05/16/18 06:44 Home Medications: Ambulatory Orders Alendronate Sodium [Binosto] 70 mg GT WEEKLY 06/12/18 Amlodipine Besylate 2.5 mg GT DAILY 06/12/18 Arformoterol Tartrate [Brovana] 1 vial NEB BID 06/12/18 Ascorbic Acid 500 mg GT BID 06/12/18 Budesonide [Pulmicort 0.5 mg Nebulizer -] 1 vial NEB BID 06/12/18 Calcium Carbonate/Vitamin D3 [Oystercal-D 500 mg-400 Unit Tb] 2 each GT HS 06/12 Calcium Carbonate/Vitamin D3 [Oystercal-D 500 mg-400 Unit Tb] 2 tablet GT HS 12/21 Ipratropium/Albuterol Sulfate [Iprat-Albut 0.5-3(2.5) mg/3 ml] 1 vial NEB QID Lactulose 30 ml GT DAILY 06/12/18 Metoclopramide HCl 5 mg GT QID 06/12/18 Metoprolol Tartrate 50 mg GT DAILY 06/12/18 Omeprazole 20 mg GT DAILY 06/12/18 Phenobarbital 32.4 mg GT BID 06/12/18 Protein Supplement [Promod] 30 ml GT DAILY 06/12/18 Scopolamine 1 each TD Q72H 06/12/18 Scopolamine [Transderm-Scop] 1 each TD Q72H 06/12/18 Silver Sulfadiazine [Silvadene] 20 gm TP DAILY 06/12/18 Simvastatin 40 mg GT DAILY 06/12/18 Topiramate 25 mg GT DAILY 06/12/18 Topiramate 200 mg GT BID 06/12/18 Valproate Sodium [Depakene] 15 ml GT BID 06/12/18 Zinc Oxide 1 applic TP TID 06/12/18 levETIRAcetam [levETIRAcetam ORAL SUSPENSION] 15 ml GT BID 06/12/18 CVA: Yes COPD: Yes HTN: Yes Hypercholesterolemia: Yes - Surgical History GI Surgery: Yes (PEG tube) - Immunization History Immunization Up to Date: No - Suicide/Smoking/Psychosocial Hx Smoking History: Unknown if ever smoked Have you smoked in the past 12 months: No Hx Alcohol Use: No Drug/Substance Use Hx: No Substance Use Type: None Hx Substance Use Treatment: No Review of Systems - Review of Systems Able to Perform ROS?: No (non verbal) *Physical Exam - Physical Exam General Appearance: Yes: Nourished, Appropriately Dressed HEENT: positive: EOMI. negative: Normal ENT Inspection (moderate secretions) Neck: positive: Trachea midline, Normal Thyroid, Supple. negative: Tender, Rigid Respiratory/Chest: positive: Respiratory Distress, Accessory Muscle Use, Rapid RR, Wheezing. negative: Chest Tender, Lungs Clear (bilateral adventitious sounds with uppe repiratory transmission and wheezes), Normal Breath Sounds Cardiovascular: positive: Regular Rhythm, Regular Rate Musculoskeletal: positive: Decreased Range of Motion (right arm contractedd and left arm in brace. Both legs contracted) Integumentary: positive: Normal Color, Dry, Warm Neurologic: positive: Alert. negative: Normal Mood/Affect, Motor Strength 5/5 ED Treatment Course - LABORATORY CBC & Chemistry Diagram: 06/13/18 06:30 06/13/18 06:30 Medical Decision Making - Medical Decision Making 67 year old female who is developmentally delayed presenting with shortness of breath for the past day. CXR read as normal but we suspect that there could be a right sided infiltrate given the poor quality of the film given that she is contracted to her right. Patient's Sats remained stable on her home 4L O2 but she remained tachypnic throughout She was given broad spectrum abx, duoneb treatments, and admitted to medicine for further workup. 06/12/18 18:39 *DC/Admit/Observation/Transfer Diagnosis at time of Disposition: Acute respiratory failure with hypoxia - Discharge Dispostion Condition at time of disposition: Stable Decision to Admit order: Yes - Referrals - Patient Instructions - Post Discharge Activity
[2018-06-12] MEDS ORDERED: ALBUTEROL SO4 2.5/IPRATROPIUM 0.5 INH SOL 3 ML VIAL.NEB. NEB ONE ×2 (15:41→17:22)
[2018-06-12] MEDS: ALBUTEROL SO4 2.5/IPRATROPIUM 0.5 INH SOL 3 ML VIAL.NEB. NEB SCH ×4 (15:45→17:36)
--- NOTE | 2018-06-12 16:07 | PDOC ---
Attending Attestation - HPI HPI: 06/12/18 17:18 The patient is a 67 year old female sent in from [facility] for respiratory distress and were concerned about possible pneumonia. She was given a neb at the facility. Patient is nonverbal and unable to provide further history. - Physicial Exam PE: 06/12/18 17:18 ADULT PHYSICAL EXAM Constitutional: (+) Nonverbal, cannot provide history. Head: Normocephalic. Atraumatic Eyes: PERRL. EOMI. Conjunctivae are not pale. ENT: Mucous membranes are moist and intact. Posterior pharynx without exudates or erythema. Uvula midline. Neck: Supple. Full ROM. No lymphadenopathy. Cardiovascular: Regular rate. Regular rhythm. S1, S2 regular. Distal pulses are 2+ and symmetric. Pulmonary/Chest: (+) Coarse breath sounds bilaterally. (+) Pulse ox 100% sat on neb. (+) Pulse ox 95%-96% sat on room air with nasal flaring with some retractions. Abdominal: Soft and non-distended. There is no tenderness. No rebound, guarding or rigidity. Musculoskeletal: (+) Contracted upper and lower extremities. No edema. Skin: Skin is warm and dry. Neurological: Nonverbal <Vanesa Wakefield - Last Filed: 06/12/18 17:26> - Resident Resident Name: Carlos Rajput - ED Attending Attestation I have performed the following: I have examined & evaluated the patient, The case was reviewed & discussed with the resident, I agree w/resident's findings & plan, Exceptions are as noted - Critical Care Time Total Critical Care Time: 35 Critical Care Statement: The care of this patient involved high complexity decision making to prevent further life threatening deterioration of the patient 's condition and/or to evaluate & treat vital organ system(s) failure or risk of failure. - Medical Decision Making 06/12/18 16:07 I, Dr. Mar Keller, DO, attest that this document has been prepared under my direction and personally reviewed by me in its entirety. I further attest, that it accurately reflects all work, treatment, procedures and medical decision -making performed by me. 06/12/18 16:52 a/p: 67yo female from [place] with resp distress -pt tachy, tachypnic, coarse bs -concern for PNA -given nebs for pulse ox in 80s at the facility -given neb and currently 96% -will send lab, cultures, broad spectrum abx -will need admission 06/12/18 16:57 concern for RUL pna on xray abx ordered 06/12/18 17:17 wbc 20 broad spectrum abx ordered NO CPR per records sister states +intubation if needed 06/12/18 18:01 resident discussed the case with MARTÍNEZ who accepts pt to service <Mar Keller - Last Filed: 06/12/18 18:01> Heart Score/ECG Review - ECG Intrepretation Comment:: 06/12/18 16:55 sinus at 99, baseline artifact, nl axis, no acute st/t wave findings <Mar Keller - Last Filed: 06/12/18 18:01>
[2018-06-12 16:41] LABS: HEMATOCRIT 41.6 % (32.4-45.2); HEMOGLOBIN 13.8 GM/dL (10.7-15.3); MCH 30.5 pg (25.7-33.7); MCHC 33.1 g/dl (32.0-36.0); MEAN CELL VOLUME 92.1 fl (80-96); MEAN PLT VOLUME 7.8 fl (7.5-11.1); PLATELET COUNT 336 K/MM3 (134-434); RBC 4.51 M/mm3 (3.60-5.2); RDW 13.7 % (11.6-15.6); WHITE BLOOD COUNT 20.7 K/mm3 (4.0-10.0)
[2018-06-12] MEDS ORDERED: PIPERACILLIN/TAZOB 4.5 GM 4.5 GM in DEXTROSE 5%-WATER 100 ML IVPB ONE (16:54)
[2018-06-12 17:01] LABS: INR 1.02 (0.83-1.09)
[2018-06-12 17:13] LABS: ALK PHOS 326 U/L (45-117); ANION GAP 7 MMOL/L (8-16); BILIRUBIN,TOTAL 0.2 mg/dL (0.2-1); BLOOD UREA NITROGEN 15 mg/dL (7-18); CALCIUM 9.2 mg/dL (8.5-10.1); CHLORIDE 97 mmol/L (98-107); CO2 34 mmol/L (21-32); CREATININE 0.2 mg/dL (0.55-1.3); GLUCOSE,RANDOM 157 mg/dL (74-106); POTASSIUM 3.4 mmol/L (3.5-5.1); SGOT/AST 21 U/L (15-37); SGPT/ALT 23 U/L (13-61); SODIUM 138 mmol/L (136-145); TOT PROT 7.9 g/dl (6.4-8.2)
[2018-06-12] MEDS ORDERED: PIPERACILLIN/TAZOB 4.5 GM 4.5 GM/100 ML BAG IVPB ONE (17:22)
[2018-06-12] MEDS ORDERED: SODIUM CHLORIDE 0.9% 500 ML INFUS.BAG IV ONE (17:44)
[2018-06-12] MEDS ORDERED: ACETAMINOPHEN 325 MG TABLET (FP) PO PRN (17:46)
[2018-06-12] MEDS ORDERED: LACTATED RINGERS SOLUTION 1,000 ML IV SCH (18:00)
--- NOTE | 2018-06-12 18:01 | PN ---
Teaching Attending Note Name of Resident: Melania Marin ATTENDING PHYSICIAN STATEMENT I saw and evaluated the patient. I reviewed the resident's note and discussed the case with the resident. I agree with the resident's findings and plan as documented. SUBJECTIVE: This is a 67 year old non-verbal female with a past medical history of anoxic brain injury, COPD, and seizures who was brought to the hospital from [facility] for hypoxia and increased work of breathing. Hx is taken from the chart since patient is non verbal. The aide that came with the patient is unable to provide a history of the patient. presented with shortness of breath. No nausea or vomiting. OBJECTIVE: Vital Signs Temperature 98.9 F 06/12/18 14:42 Pulse Rate 96 H 06/12/18 14:42 Respiratory Rate 20 06/12/18 14:42 Blood Pressure 101/65 06/12/18 14:42 O2 Sat by Pulse Oximetry (%) 96 06/12/18 14:42 Initial Vital Signs Pulse Ox 98 06/12/18 14:40 GENERAL: The patient is nonverbal, lying in bed with mild distress. HEAD: Normal with no signs of trauma. EYES: PERRL, sclera anicteric, conjunctiva clear. ENT: Ears normal.NECK: Trachea midline, supple. LUNGS: decreased BS BL , positive for wheeze bl, no crackles, mild accessory muscle use. HEART: tachycardic sinus, S1, S2 without murmur, rub or gallop. ABDOMEN: Soft, nontender, nondistended, normoactive bowel sounds, no guarding, no rebound, positive for G tube. EXTREMITIES: 2+ pulses, warm, well-perfused, no edema. left humural fx, in a cast. NEUROLOGICAL: Cranial nerves II through XII grossly intact. PSYCH: non verbal, cannot be accessed , does not follow any commands SKIN: Warm, dry, normal turgor. CBCD WBC 20.7 K/mm3 (4.0-10.0) H 06/12/18 16:07 RBC 4.51 M/mm3 (3.60-5.2) 06/12/18 16:07 Hgb 13.8 GM/dL (10.7-15.3) 06/12/18 16:07 Hct 41.6 % (32.4-45.2) 06/12/18 16:07 MCV 92.1 fl (80-96) 06/12/18 16:07 MCHC 33.1 g/dl (32.0-36.0) 06/12/18 16:07 RDW 13.7 % (11.6-15.6) 06/12/18 16:07 Plt Count 336 K/MM3 (134-434) D 06/12/18 16:07 MPV 7.8 fl (7.5-11.1) D 06/12/18 16:07 CMP Sodium 138 mmol/L (136-145) 06/12/18 15:34 Potassium 3.4 mmol/L (3.5-5.1) L 06/12/18 15:34 Chloride 97 mmol/L (98-107) L 06/12/18 15:34 Carbon Dioxide 34 mmol/L (21-32) H 06/12/18 15:34 Anion Gap 7 MMOL/L (8-16) L 06/12/18 15:34 BUN 15 mg/dL (7-18) 06/12/18 15:34 Creatinine 0.2 mg/dL (0.55-1.3) L 06/12/18 15:34 Creat Clearance w eGFR 356.48 (>60) 06/12/18 15:34 Random Glucose 157 mg/dL (74-106) H 06/12/18 15:34 Calcium 9.2 mg/dL (8.5-10.1) 06/12/18 15:34 Total Bilirubin 0.2 mg/dL (0.2-1) 06/12/18 15:34 AST 21 U/L (15-37) 06/12/18 15:34 ALT 23 U/L (13-61) 06/12/18 15:34 Alkaline Phosphatase 326 U/L (45-117) H 06/12/18 15:34 Total Protein 7.9 g/dl (6.4-8.2) 06/12/18 15:34 Albumin 3.0 g/dl (3.4-5.0) L 06/12/18 15:34 Current Medications Generic Name Dose Route Start Last Admin Trade Name Freq PRN Reason Stop Dose Admin Acetaminophen 650 mg 06/12/18 17:46 Tylenol - PO Q4H PRN FEVER Enoxaparin Sodium 40 mg 06/13/18 10:00 Lovenox - SQ DAILY [facility] Lactated Ringer's 1,000 mls @ 100 mls/hr 06/12/18 18:00 Lactated Ringers Solution IV 06/14/18 03:59 ASDIR [facility] Home Medications Medication Instructions Recorded Alendronate Sodium [Binosto] 70 mg GT WEEKLY 06/12/18 Phenobarbital 32.4 mg GT BID 06/12/18 Protein Supplement [Promod] 30 ml GT DAILY 06/12/18 Topiramate 25 mg GT DAILY 06/12/18 Topiramate 200 mg GT BID 06/12/18 Valproate Sodium [Depakene] 250 mg GT BID 06/12/18 Zinc Oxide 1 applic TP TID 06/12/18 levETIRAcetam [levETIRAcetam ORAL 15 ml GT BID 06/12/18 SUSPENSION] ASSESSMENT AND PLAN: Patient is a 67 year old non-verbal female with a past medical history of anoxic brain injury, COPD ON 4LITER home 02, and seizures who was brought to the hospital from [facility] for hypoxia with labored breathing. # Aspiration Pneumonia with leukocytosis r/o sepsis: Henao-culture ordered, On zosyn r/o Sepis , blood, ua, urine cx , ID on the case, dr Hickey. check RSV and inf.A&B #Left Upper extremity Fx: Xray ordered to evaluate the fx , ortho consult. # Seizure hx: changed Keppras to IV since patient is NPO for now, continue rest of the meds po. # hx of Hypertension: controlled , continue home meds. # Hx of COPD on home 02 4liter continue. DVT px: lovenox
--- NOTE | 2018-06-12 18:29 | HP ---
CHIEF COMPLAINT: SOB PCP: from [facility] HISTORY OF PRESENT ILLNESS: This is a 67 year old non-verbal female with a past medical history of anoxic brain injury, COPD, and seizures who was brought to the hospital from [facility] for hypoxia and increased work of breathing. Since patient is non-verbal, history was obtained through the prior chart and ED records. The aide that came with the patient is unable to provide a history of the patient. Chart records did not find any noted fevers or chills, nausea, vomiting, diarrhea or mention any pain. Patient is reportedly on 4L home O2. Patient is frequently at the hospital for shortness of breath, is suctioned and sent home. Has been admitted before for pneumonia and pseudomonas UTI. ER course was notable for: (1) WBC >20 (2) K 3.4 (3) EKG NSR 99BPM QtC 428 PAST MEDICAL HISTORY: anoxic brain injury, COPD, and seizures PAST SURGICAL HISTORY: unknown Social History: Smoking: never Alcohol: never Drugs: never Family History: unknown at present time Allergies No Known Allergies Allergy (Verified 05/16/18 06:44) HOME MEDICATIONS: Home Medications Medication Instructions Recorded Alendronate Sodium [Binosto] 70 mg GT WEEKLY 06/12/18 Phenobarbital 32.4 mg GT BID 06/12/18 Protein Supplement [Promod] 30 ml GT DAILY 06/12/18 Topiramate 25 mg GT DAILY 06/12/18 Topiramate 200 mg GT BID 06/12/18 Valproate Sodium [Depakene] 15 ml GT BID 06/12/18 Zinc Oxide 1 applic TP TID 06/12/18 levETIRAcetam [levETIRAcetam ORAL 15 ml GT BID 06/12/18 SUSPENSION] REVIEW OF SYSTEMS CONSTITUTIONAL: Absent: fever, chills, diaphoresis, generalized weakness, malaise, loss of appetite, weight change HEENT: Absent: rhinorrhea, nasal congestion, throat pain, throat swelling, difficulty swallowing, mouth swelling, ear pain, eye pain, visual changes CARDIOVASCULAR: Absent: chest pain, syncope, palpitations, irregular heart rate, lightheadedness , peripheral edema RESPIRATORY: shortness of breath Absent: cough, dyspnea with exertion, orthopnea, wheezing, stridor, hemoptysis GASTROINTESTINAL: Absent: abdominal pain, abdominal distension, nausea, vomiting, diarrhea, constipation, melena, hematochezia GENITOURINARY: Absent: dysuria, frequency, urgency, hesitancy, hematuria, flank pain, genital pain MUSCULOSKELETAL: Absent: myalgia, arthralgia, joint swelling, back pain, neck pain SKIN: Absent: rash, itching, pallor HEMATOLOGIC/IMMUNOLOGIC: Absent: easy bleeding, easy bruising, lymphadenopathy, frequent infections ENDOCRINE: Absent: unexplained weight gain, unexplained weight loss, heat intolerance, cold intolerance NEUROLOGIC: Absent: headache, focal weakness or paresthesias, dizziness, unsteady gait, seizure, mental status changes, bladder or bowel incontinence PSYCHIATRIC: Absent: anxiety, depression, suicidal or homicidal ideation, hallucinations. PHYSICAL EXAMINATION Vital Signs - 24 hr 06/12/18 06/12/18 14:40 14:42 Temperature 98.9 F Pulse Rate 96 H Respiratory 20 Rate Blood Pressure 101/65 O2 Sat by Pulse 98 96 Oximetry (%) GENERAL: A&Ox0 EYES: Pupils mildly dilated but react to light ENT: Moist mucus membranes, unable to see pharynx due to patient being unable to cooperate NECK: No JVD LUNGS: Coarse breath sounds bilaterally, no overt wheezes noted, breathing not labored HEART: tachycardic, no murmurs noted ABDOMEN: G tube on left side, abdomen mildly distended but nontender to palpation with bowel sounds present EXTREMITIES: 2+ pulses, 2+ edema, all extremities contracted SKIN: No sacral decubitus ulcers or other ulcers noted on exam NEUROLOGICAL: Unable to assess due to mental status Laboratory Results - last 24 hr 06/12/18 06/12/18 06/12/18 15:34 16:07 16:07 WBC 20.7 H RBC 4.51 Hgb 13.8 Hct 41.6 MCV 92.1 MCH 30.5 MCHC 33.1 RDW 13.7 Plt Count 336 D MPV 7.8 D PT with INR 12.00 INR 1.02 Sodium 138 Potassium 3.4 L Chloride 97 L Carbon Dioxide 34 H Anion Gap 7 L BUN 15 Creatinine 0.2 L Creat Clearance w eGFR 356.48 Random Glucose 157 H Calcium 9.2 Total Bilirubin 0.2 AST 21 ALT 23 Alkaline Phosphatase 326 H Total Protein 7.9 Albumin 3.0 L ASSESSMENT/PLAN: 67 year old non-verbal female with a past medical history of anoxic brain injury , COPD, and seizures admitted for respiratory distress likely due to sepsis 2/2 PNA #Sepsis 2/2 PNA: poor CXR, has had pna in the past and pseudomonas in urine, tachycardic with white count, may be related to aspiration -vanc/zosyn -influenza/rsv/legionella ordered -straight cath/UA/UCx ordered - consulted -4 liters O2 -fluids of LR @ 42cc/hr due to -hold tube feeds for now in event of aspiration -lactic acid normal -Will get UA and Uculture -CXR unclear due to body position, but initial radiologist read negative for infiltrate #COPD -pulmicort BID -on 4L O2 at home -monitor O2 sats #L arm brace: unclear history of fracture -get Xray L arm and reevaluate #Hypertension: normotensive now -on metoprolol tartrate 50 GT daily -continue amlodipine 2.5 GT #Hyperlipidemia: chronic -continue statin #Seizures: not acute -restart home meds (valproate, phenobarbital, keppra, topiramate) #FEN LR @ 42 Replete potassium NPO for now due to risk of microaspiration #Prophylaxis -lovenox #Disposition -admit med surg Visit type - Emergency Visit Emergency Visit: Yes ED Registration Date: 06/12/18 Care time: The patient presented to the Emergency Department on the above date and was hospitalized for further evaluation of their emergent condition. - New Patient This patient is new to me today: Yes Date on this admission: 06/12/18 - Critical Care Critical Care patient: No
[2018-06-12] MEDS ORDERED: POTASSIUM CHLORIDE TABS 20 MEQ TABLET.ER (FP) PO ONE ×3 (18:44→19:54)
[2018-06-12] MEDS ORDERED: VANCOMYCIN 1 GM PREMIX - 1 GM/200 ML BAG IVPB SCH (18:45)
[2018-06-12] MEDS ORDERED: SCOPOLAMINE HYDROBROMIDE 1 PATCH PATCH.TD72 TD SCH (18:45)
[2018-06-12] MEDS ORDERED: PATIENT'S OWN MEDICATION (NON-FORMULARY) (Alendronate Sodium [Binosto] 70 MG) GT SCH (18:45)
[2018-06-12 19:07] LABS: PH,URINE 8.5 (5.0-8.0); URINE APPEARANCE CLOUDY; URINE BACTERIA 15.2 /hpf (NEGATIVE); URINE BILIRUBIN NEGATIVE (NEGATIVE); URINE CASTS 1 /hpf (0-8); URINE COLOR YELLOW; URINE GLUCOSE (UA) NEGATIVE (NEGATIVE); URINE KETONE TRACE (NEGATIVE); URINE LEUK ESTERASE 1+ (NEGATIVE); URINE NITRITE NEGATIVE (NEGATIVE); URINE PROTEIN 2+ (NEGATIVE); URINE RBC 3 /hpf (0-4); URINE UROBILINOGEN 0.2 mg/dL (0.2-1.0); URINE WBC 6 /hpf (0-5)
[2018-06-12] MEDS ORDERED: ALBUTEROL SO4 2.5/IPRATROPIUM 0.5 INH SOL 3 ML VIAL.NEB. NEB SCH (19:45)
[2018-06-12] MEDS ORDERED: VANCOMYCIN 1 GRAM (PRE-DOCKED) 1,000 MG/250 ML BAG IVPB ONE (19:54)
[2018-06-12] MEDS: LACTATED RINGERS SOLUTION 1,000 ML IV SCH (20:15)
[2018-06-12] MEDS: VANCOMYCIN 1 GRAM (PRE-DOCKED) 1,000 MG/250 ML BAG IVPB SCH (20:16)
[2018-06-12] MEDS ORDERED: PIPERACILLIN/TAZOB 3.375 GM 3.375 GM in DEXTROSE 5%-WATER - 50 ML IVPB SCH (21:00)
[2018-06-12] MEDS: BUDESONIDE 0.5 MG/2 ML INH SUSP VIAL NEB SCH (22:05)
[2018-06-12] MEDS: ARFORMOTEROL TARTRATE 15 MCG/2 ML VIAL NEB SCH (22:12)
[2018-06-12 22:31] LABS: BASO % 0.1 % (0-2.0); HEMATOCRIT 38.6 % (32.4-45.2); MCH 31.2 pg (25.7-33.7); MCHC 33.7 g/dl (32.0-36.0); MEAN CELL VOLUME 92.6 fl (80-96); MEAN PLT VOLUME 7.6 fl (7.5-11.1); NEUT % 90.9 % (42.8-82.8); PLATELET COUNT 272 K/MM3 (134-434); RBC 4.17 M/mm3 (3.60-5.2); RDW 13.8 % (11.6-15.6); WHITE BLOOD COUNT 17.4 K/mm3 (4.0-10.0)
[2018-06-12] MEDS ORDERED: PIPERACILLIN/TAZOBACTAM 3.375 GM VIAL IVPB ONE (22:31)
[2018-06-12] MEDS ORDERED: DEXTROSE 5%-WATER - 50 ML IVPB ONE (22:32)
[2018-06-12] MEDS: CALCIUM 500MG/VIT-D 200 UNITS COMBO TABLET (FP) GT SCH (22:39)
[2018-06-12] MEDS: PHENobarbital 30 MG TABLET GT SCH (22:39)
[2018-06-12] MEDS: ASCORBIC ACID 500 MG TABLET (FP) GT SCH (22:39)
[2018-06-12] MEDS: METOCLOPRAMIDE HCL 5 MG/5 ML UNIT DOSE CUP GT SCH (22:39)
[2018-06-12] MEDS: VALPROATE SODIUM 250 MG/5 ML UNIT DOSE CUP GT SCH (22:39)
[2018-06-12] MEDS: TOPIRAMATE 200 MG TABLET (FP) GT SCH (22:40)
[2018-06-12] MEDS: levETIRAcetam 500 MG/5 ML ORAL SOLUTION BULK GT SCH (22:40)
[2018-06-12] MEDS: ZINC OXIDE 20% TOPICAL OINTMENT 30 GM TUBE TP SCH (22:45)
[2018-06-12] MEDS: PIPERACILLIN/TAZOB 3.375 GM 3.375 GM in DEXTROSE 5%-WATER - 50 ML IVPB SCH (23:21)
[2018-06-13] MEDS: ALBUTEROL SO4 2.5/IPRATROPIUM 0.5 INH SOL 3 ML VIAL.NEB. NEB PRN ×2 (02:42→14:28)
[2018-06-13] MEDS ORDERED: PIPERACILLIN/TAZOBACTAM 3.375 GM VIAL IVPB ONE ×3 (03:28→14:10)
[2018-06-13] MEDS ORDERED: DEXTROSE 5%-WATER - 50 ML IVPB ONE ×3 (03:29→14:10)
[2018-06-13] MEDS: PIPERACILLIN/TAZOB 3.375 GM 3.375 GM in DEXTROSE 5%-WATER - 50 ML IVPB SCH ×4 (03:33→18:12)
[2018-06-13] MEDS: ZINC OXIDE 20% TOPICAL OINTMENT 30 GM TUBE TP SCH ×3 (06:45→23:19)
[2018-06-13 07:37] LABS: HEMATOCRIT 36.2 % (32.4-45.2); MCH 30.6 pg (25.7-33.7); MCHC 33.3 g/dl (32.0-36.0); MEAN PLT VOLUME 7.6 fl (7.5-11.1); PLATELET COUNT 257 K/MM3 (134-434); RBC 3.93 M/mm3 (3.60-5.2); RDW 13.6 % (11.6-15.6); WHITE BLOOD COUNT 12.1 K/mm3 (4.0-10.0)
[2018-06-13 07:56] LABS: ANION GAP 5 MMOL/L (8-16); BLOOD UREA NITROGEN 8 mg/dL (7-18); CALCIUM 8.4 mg/dL (8.5-10.1); CHLORIDE 101 mmol/L (98-107); CO2 33 mmol/L (21-32); CREATININE < 0.2 mg/dL (0.55-1.3); GLUCOSE,RANDOM 80 mg/dL (74-106); PHOSPHOROUS 2.2 mg/dL (2.5-4.9); POTASSIUM 3.6 mmol/L (3.5-5.1); SODIUM 139 mmol/L (136-145)
[2018-06-13] MEDS: ARFORMOTEROL TARTRATE 15 MCG/2 ML VIAL NEB SCH ×2 (08:00→20:30)
[2018-06-13] MEDS: BUDESONIDE 0.5 MG/2 ML INH SUSP VIAL NEB SCH ×2 (08:05→20:20)
[2018-06-13] MEDS ORDERED: PT OWN MED DRAWER 7, Y5N ONE ×2 (09:18→22:45)
[2018-06-13] MEDS: PHENobarbital 30 MG TABLET GT SCH ×2 (09:22→23:18)
[2018-06-13] MEDS: ASCORBIC ACID 500 MG TABLET (FP) GT SCH ×2 (09:22→23:18)
[2018-06-13] MEDS: METOPROLOL TARTRATE 50 MG TABLET (FP) GT SCH (09:22)
[2018-06-13] MEDS: TOPIRAMATE 25 MG TABLET (FP) NR SCH (09:22)
[2018-06-13] MEDS: amLODIPine BESYLATE 5 MG TABLET (FP) GT SCH (09:24)
[2018-06-13] MEDS: TOPIRAMATE 200 MG TABLET (FP) GT SCH ×2 (09:24→23:19)
[2018-06-13] MEDS: VALPROATE SODIUM 250 MG/5 ML UNIT DOSE CUP GT SCH ×2 (09:25→23:18)
[2018-06-13] MEDS: LACTULOSE 20 GM/30 ML UDC (FOR ORAL USE ONLY) GT SCH (09:25)
[2018-06-13] MEDS: METOCLOPRAMIDE HCL 5 MG/5 ML UNIT DOSE CUP GT SCH ×4 (09:25→23:18)
[2018-06-13] MEDS: levETIRAcetam 500 MG/5 ML ORAL SOLUTION BULK GT SCH ×2 (09:26→23:19)
[2018-06-13] MEDS: SCOPOLAMINE HYDROBROMIDE 1 PATCH PATCH.TD72 TD SCH (09:27)
[2018-06-13] MEDS: PANTOPRAZOLE SODIUM 40 MG VIAL IVPUSH SCH (09:27)
[2018-06-13] MEDS: ENOXAPARIN NA (PORCINE) 40 MG/0.4 ML DISP.SYRIN SQ SCH (09:27)
[2018-06-13] MEDS: VANCOMYCIN 1 GRAM (PRE-DOCKED) 1,000 MG/250 ML BAG IVPB SCH (11:44)
[2018-06-13 14:26] VITALS: BMI 27.2
[2018-06-13] MEDS: SILVER SULFADIAZINE 1% TOP CREAM 50 GM JAR TP SCH (14:55)
--- NOTE | 2018-06-13 15:39 | CON.ID ---
Consult Consult Specialty:: infectious diseases Referred by:: hospitalist Reason for Consultation:: sepsis,leukocytosis - History of Present Illness Chief Complaint: ams History of Present Illness: 67 year old non-verbal female with a past medical history of anoxic brain injury , COPD, and seizures who was brought to the hospital from [facility] for hypoxia and increased work of breathing. Since patient is non-verbal, history was obtained through the prior chart and ED records. The aide that came with the patient is unable to provide a history of the patient. Patient is reportedly on 4L home O2. 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) - Alcohol/Substance Use Hx Alcohol Use: No - Smoking History Smoking history: Unknown if ever smoked Have you smoked in the past 12 months: No Home Medications - Allergies Allergies/Adverse Reactions: Allergies Allergy/AdvReac Type Severity Reaction Status Date / Time No Known Allergies Allergy Verified 05/16/18 06:44 - Home Medications Home Medications: Ambulatory Orders Alendronate Sodium [Binosto] 70 mg GT WEEKLY 06/12/18 Arformoterol Tartrate [Brovana] 1 vial NEB BID 06/12/18 Calcium Carbonate/Vitamin D3 [Oystercal-D 500 mg-400 Unit Tb] 2 each GT HS 06/12 Calcium Carbonate/Vitamin D3 [Oystercal-D 500 mg-400 Unit Tb] 2 tablet GT HS 12/21 Lactulose 30 ml GT DAILY 06/12/18 Omeprazole 20 mg GT DAILY 06/12/18 Protein Supplement [Promod] 30 ml GT DAILY 06/12/18 RX: Amlodipine Besylate 2.5 mg GT DAILY 06/12/18 RX: Ascorbic Acid 500 mg GT BID 06/12/18 RX: Budesonide [Pulmicort 0.5 mg Nebulizer -] 1 vial NEB BID 06/12/18 RX: Ipratropium/Albuterol Sulfate [Iprat-Albut 0.5-3(2.5) mg/3 ml] 1 vial NEB QID 06/12/18 RX: Metoclopramide HCl 5 mg GT QID 06/12/18 RX: Metoprolol Tartrate 50 mg GT DAILY 06/12/18 RX: Phenobarbital 32.4 mg GT BID 06/12/18 RX: Scopolamine 1 each TD Q72H 06/12/18 RX: Topiramate 25 mg GT DAILY 06/12/18 RX: Topiramate 200 mg GT BID 06/12/18 RX: Zinc Oxide 1 applic TP TID 06/12/18 Scopolamine [Transderm-Scop] 1 each TD Q72H 06/12/18 Silver Sulfadiazine [Silvadene] 20 gm TP DAILY 06/12/18 Simvastatin 40 mg GT DAILY 06/12/18 Valproate Sodium [Depakene] 15 ml GT BID 06/12/18 levETIRAcetam [levETIRAcetam ORAL [facility]] 15 ml GT BID 06/12/18 Review of Systems Unable to obtain ROS, reason: unable to obtain Physical Exam Vital Signs: Vital Signs Temperature 97.8 F 06/13/18 14:18 Pulse Rate 85 06/13/18 14:18 Respiratory Rate 20 06/13/18 14:18 Blood Pressure 162/95 06/13/18 14:18 O2 Sat by Pulse Oximetry (%) 99 06/13/18 09:00 Constitutional: Yes: Calm, Other Cardiovascular: Yes: Regular Rate and Rhythm Respiratory: Yes: Regular, On Nasal O2, Poor Air Entry Gastrointestinal: Yes: Normal Bowel Sounds, Soft Musculoskeletal: Yes: WNL Extremities: Yes: Other (contracted) Neurological: Yes: Lethargy, Other Psychiatric: Yes: Other Labs: CBC, BMP 06/13/18 06:30 06/13/18 06:30 Imaging - Results Chest X-ray: Report Reviewed, Image Reviewed X-ray: Report Reviewed Assessment/Plan 67 year old non-verbal female with a past medical history of anoxic brain injury , COPD, and seizures admitted for respiratory distress pna sepsis copd htn hld leukocytosis patient has got abx in the er plan will continue abx close watch nutrition avoid aspiration precautions' rest as per the team
--- NOTE | 2018-06-13 15:51 | PN ---
Physical Exam: SUBJECTIVE: Patient seen and examined this AM in the presence of Aid from facility. Resting comfortably. No acute overnight events as per nursing. OBJECTIVE: Vital Signs Period Temp Pulse Resp BP Sys/Restrepo Pulse Ox Last 24 Hr 98 F-99.3 F 80-119 20-22 138-174/82-122 95-99 GENERAL: Sleeping HEAD: Microcephaly EYES: PERRL ENT: Moist mucous membranes NECK: No JVD LUNGS: Coarse breath sounds throughout, no wheezes, no crackles HEART: Tachycardic, S1, S2 without murmur ABDOMEN: Soft, mildly distended, + bowel sounds, GTube present on the left without surrounding erythema or drainage EXTREMITIES: All extremities contracted, 1+ right pedal edema NEUROLOGICAL: Unable to assess SKIN: Warm, Dry, Without sacral decubitus ulcers Laboratory Results - last 24 hr 06/13/18 06/13/18 06:30 06:30 WBC 12.1 H RBC 3.93 Hgb 12.0 Hct 36.2 MCV 92.0 MCH 30.6 MCHC 33.3 RDW 13.6 Plt Count 257 MPV 7.6 Absolute Neuts (auto) Neutrophils % Lymphocytes % Monocytes % Eosinophils % Basophils % Nucleated RBC % PT with INR INR PTT (Actin FS) Sodium 139 Potassium 3.6 Chloride 101 Carbon Dioxide 33 H Anion Gap 5 L BUN 8 Creatinine < 0.2 L Creat Clearance w eGFR 356.50 Random Glucose 80 Lactic Acid Calcium 8.4 L Phosphorus 2.2 L Magnesium 2.0 Total Bilirubin AST ALT Alkaline Phosphatase Total Protein Albumin Urine Color Urine Appearance Urine pH Ur Specific [place] Urine Protein Urine Glucose (UA) Urine Ketones Urine Blood Urine Nitrite Urine Bilirubin Urine Urobilinogen Ur Leukocyte Esterase Urine WBC (Auto) Urine RBC (Auto) Urine Casts (Auto) U Epithel Cells (Auto) Urine Bacteria (Auto) Influenza A (Rapid) Influenza B (Rapid) RSV Rapid Microbiology 06/12/18 19:05 Urine For Antigen Detection Legionella Antigen - Final 06/12/18 19:05 Urine For Antigen Detection Streptococcus pneumoniae Antigen (M - Final Active Medications Acetaminophen (Tylenol -) 650 mg PO Q4H PRN PRN Reason: FEVER Albuterol/Ipratropium (Duoneb -) 1 amp NEB Q6H PRN PRN Reason: SHORTNESS OF BREATH Last Admin: 06/13/18 14:28 Dose: 1 amp Amlodipine Besylate (Norvasc -) 2.5 mg GT DAILY [facility] Last Admin: 06/13/18 09:24 Dose: 2.5 mg Arformoterol Tartrate (Brovana (Restricted To Pulmonology/Resp) -) 1 amp NEB RBID [facility] Last Admin: 06/13/18 08:00 Dose: 1 amp Ascorbic Acid (Vitamin C -) 500 mg GT BID [facility] Last Admin: 06/13/18 09:22 Dose: 500 mg Atorvastatin Calcium (Lipitor -) 20 mg GT HS [facility] Budesonide (Pulmicort 0.5 Mg Nebulizer -) 1 amp NEB RBID [facility] Last Admin: 06/13/18 08:05 Dose: 1 amp Calcium Carbonate/Cholecalciferol (Os-Jamar 500+D -) 2 tab GT HS [facility] Last Admin: 06/12/18 22:39 Dose: 2 tab Enoxaparin Sodium (Lovenox -) 40 mg SQ DAILY [facility] Last Admin: 06/13/18 09:27 Dose: 40 mg Vancomycin HCl 1,000 mg/ (Dextrose) 250 mls @ 166.667 mls/hr IVPB Q12H [facility]; Protocol Piperacillin Sod/Tazobactam (Sod 3.375 gm/ Dextrose) 50 mls @ 100 mls/hr IVPB Q6H-IV [facility]; Protocol Piperacillin Sod/Tazobactam (Sod 3.375 gm/ Dextrose) 50 mls @ 100 mls/hr IVPB Q6H-IV [facility]; Protocol Stop: 06/13/18 15:29 Last Admin: 06/13/18 09:21 Dose: 100 mls/hr Lactated Ringer's (Lactated Ringers Solution) 1,000 mls @ 42 mls/hr IV ASDIR [facility] Stop: 06/14/18 17:49 Last Admin: 06/12/18 20:15 Dose: 42 mls/hr Lactulose (Cephulac (Oral Use)) 20 gm GT DAILY [facility] Last Admin: 06/13/18 09:25 Dose: 20 gm Levetiracetam (Levetiracetam Oral Suspension) 1,500 mg GT BID [facility] Last Admin: 06/13/18 09:26 Dose: 1,500 mg Metoclopramide HCl (Reglan Oral Solution -) 5 mg GT QID [facility] Last Admin: 06/13/18 14:56 Dose: 5 mg Metoprolol Tartrate (Lopressor -) 50 mg GT DAILY [facility] Last Admin: 06/13/18 09:22 Dose: 50 mg Multi-Ingredient Ointment (Zinc Oxide) 1 applic TP TID [facility] Last Admin: 06/13/18 14:56 Dose: 1 applic Pantoprazole Sodium (Protonix Iv) 40 mg IVPUSH DAILY [facility] Last Admin: 06/13/18 09:27 Dose: 40 mg Phenobarbital (Phenobarbital -) 30 mg GT BID [facility] Last Admin: 06/13/18 09:22 Dose: 30 mg Scopolamine HBr (Transderm-Scop -) 1 patch TD Q72H [facility] Last Admin: 06/13/18 09:27 Dose: 1 patch Silver Sulfadiazine (Silvadene -) 1 applic TP DAILY [facility] Last Admin: 06/13/18 14:55 Dose: 1 applic Topiramate (Topamax -) 200 mg GT BID [facility] Last Admin: 06/13/18 09:24 Dose: 200 mg Topiramate (Topamax -) 25 mg NR DAILY [facility] Last Admin: 06/13/18 09:22 Dose: 25 mg Valproate Sodium (Depakene -) 750 mg GT BID [facility] Last Admin: 06/13/18 09:25 Dose: 750 mg IMAGING: -Left Humerus: 2 views of the left humerus reveal a healing fracture deformity of the mid shaft of the left humerus. There is some displacement at the fracture site as shown in one view. The imaging is available for review. -CXR: No significant interval change or gross acute lung disease is present. ASSESSMENT/PLAN: 67 y/o non-verbal Female with PMHx of anoxic brain injury, COPD (on 4L at home) , seizures presented with respiratory distress and found to be in Sepsis #Sepsis -Likely due to Aspiration PNA -HR and Leukocytosis improving -Vancomycin 1,000 mg Q12H -Piperacillin/Tazobactam 3.375 Q6H -Influenza, RSV, Legionella negative -Blood and Urine cx NGTD -ID (Dr. Hickey) consulted -LR @ 42 mls/hr -Hold tube feeds in the setting of Aspiration -Keep HOB elevated -Aspiration precautions #COPD -Continue Albuterol/Ipratropium, Arformoterol (Brovana) 1 amp NEB BID -Supplemental O2 to maintain SpO2 88-92% #Chronic L arm fracture -Unclear history of fracture -XRay noted above #Hypertension -Continue Metoprolol Tartrate 50 mg GT Daily, Amlodipine 2.5mg GT Daily, Budesonide 1 amp NEB BID #HLD -Continue Atorvastatin 20mg GT HS #GERD Continue Metoclopramide, Pantoprazole, Lactulose #Seizures -Continue Levetiracetam, Valproate, Topiramate, Phenobarbital #FEN -LR @ 42 -Monitor lytes -NPO #PPx -Lovenox Visit type - Emergency Visit Emergency Visit: Yes ED Registration Date: 06/12/18 Care time: The patient presented to the Emergency Department on the above date and was hospitalized for further evaluation of their emergent condition. - New Patient This patient is new to me today: No - Critical Care Critical Care patient: No - Discharge Referral Referred to [facility] No
--- NOTE | 2018-06-13 16:38 | EKG ---
Test Reason : Blood Pressure : / mmHG Vent. Rate : 099 BPM Atrial Rate : 099 BPM P-R Int : 116 ms QRS Dur : 066 ms QT Int : 334 ms P-R-T Axes : 058 056 017 degrees QTc Int : 428 ms NORMAL SINUS RHYTHM NORMAL ECG WHEN COMPARED WITH ECG OF 16-MAY-2018 08:10, NONSPECIFIC T WAVE ABNORMALITY NOW EVIDENT IN INFERIOR LEADS Confirmed by BRINA MORTON MD ([id number]) on 06/13/2018 4:38:00 PM Referred By: Confirmed By:BRINA MORTON MD
[2018-06-13] MEDS ORDERED: PIPERACILLIN/TAZOB 3.375 GM 3.375 GM in DEXTROSE 5%-WATER - 50 ML IVPB SCH (18:00)
--- NOTE | 2018-06-13 18:26 | PN ---
Teaching Attending Note Name of Resident: Melania Marin ATTENDING PHYSICIAN STATEMENT I saw and evaluated the patient. I reviewed the resident's note and discussed the case with the resident. I agree with the resident's findings and plan as documented. SUBJECTIVE: Patient is more comfortable with no acute distress. no nausea or vomiting. no fever or chills. OBJECTIVE: Vital Signs Temperature 98.3 F 06/13/18 18:00 Pulse Rate 97 H 06/13/18 18:00 Respiratory Rate 18 06/13/18 18:00 Blood Pressure 133/75 06/13/18 18:00 O2 Sat by Pulse Oximetry (%) 99 06/13/18 09:00 GENERAL: The patient is nonverbal, lying in bed in NAD. HEAD: Normal with no signs of trauma. EYES: PERRL, sclera anicteric, conjunctiva clear. ENT: Ears normal, on Bipap now , NECK: Trachea midline, supple. LUNGS: decreased BS BL , no wheeze, no crackles, mild accessory muscle use. HEART: tachycardic sinus, S1, S2 without murmur, rub or gallop. ABDOMEN: Soft, nontender, nondistended, normoactive bowel sounds, no guarding, no rebound, positive for G tube. EXTREMITIES: 2+ pulses, warm, well-perfused, no edema. left humural fx, in a cast. NEUROLOGICAL: Cranial nerves II through XII grossly intact. PSYCH: non verbal, cannot be accessed , does not follow any commands SKIN: Warm, dry, normal turgor, no rashes or lesions appreciated CBCD WBC 12.1 K/mm3 (4.0-10.0) H 06/13/18 06:30 RBC 3.93 M/mm3 (3.60-5.2) 06/13/18 06:30 Hgb 12.0 GM/dL (10.7-15.3) 06/13/18 06:30 Hct 36.2 % (32.4-45.2) 06/13/18 06:30 MCV 92.0 fl (80-96) 06/13/18 06:30 MCHC 33.3 g/dl (32.0-36.0) 06/13/18 06:30 RDW 13.6 % (11.6-15.6) 06/13/18 06:30 Plt Count 257 K/MM3 (134-434) 06/13/18 06:30 MPV 7.6 fl (7.5-11.1) 06/13/18 06:30 CMP Sodium 139 mmol/L (136-145) 06/13/18 06:30 Potassium 3.6 mmol/L (3.5-5.1) 06/13/18 06:30 Chloride 101 mmol/L (98-107) 06/13/18 06:30 Carbon Dioxide 33 mmol/L (21-32) H 06/13/18 06:30 Anion Gap 5 MMOL/L (8-16) L 06/13/18 06:30 BUN 8 mg/dL (7-18) 06/13/18 06:30 Creatinine < 0.2 mg/dL (0.55-1.3) L 06/13/18 06:30 Creat Clearance w eGFR 356.50 (>60) 06/13/18 06:30 Random Glucose 80 mg/dL (74-106) 06/13/18 06:30 Calcium 8.4 mg/dL (8.5-10.1) L 06/13/18 06:30 Total Bilirubin 0.2 mg/dL (0.2-1) 06/12/18 15:34 AST 21 U/L (15-37) 06/12/18 15:34 ALT 23 U/L (13-61) 06/12/18 15:34 Alkaline Phosphatase 326 U/L (45-117) H 06/12/18 15:34 Total Protein 7.9 g/dl (6.4-8.2) 06/12/18 15:34 Albumin 3.0 g/dl (3.4-5.0) L 06/12/18 15:34 Current Medications Generic Name Dose Route Start Last Admin Trade Name Freq PRN Reason Stop Dose Admin Acetaminophen 650 mg 06/12/18 17:46 Tylenol - PO Q4H PRN FEVER Albuterol/Ipratropium 1 amp 06/12/18 19:56 06/13/18 14:28 Duoneb - NEB 1 amp Q6H PRN Administration SHORTNESS OF BREATH Amlodipine Besylate 2.5 mg 06/13/18 10:00 06/13/18 09:24 Norvasc - GT 2.5 mg DAILY FRANCIE Administration Arformoterol Tartrate 1 amp 06/12/18 20:00 06/13/18 08:00 Brovana (Restricted To Pulmonology/Resp) - NEB 1 amp RBID FRANCIE Administration Ascorbic Acid 500 mg 06/12/18 22:00 06/13/18 09:22 Vitamin C - GT 500 mg BID FRANCIE Administration Atorvastatin Calcium 20 mg 06/13/18 22:00 Lipitor - GT HS FRANCIE Budesonide 1 amp 06/12/18 20:00 06/13/18 08:05 Pulmicort 0.5 Mg Nebulizer - NEB 1 amp RBID FRANCIE Administration Calcium Carbonate/Cholecalciferol 2 tab 06/12/18 22:00 06/12/18 22:39 Os-Jamar 500+D - GT 2 tab HS FRANCIE Administration Enoxaparin Sodium 40 mg 06/13/18 10:00 06/13/18 09:27 Lovenox - SQ 40 mg DAILY FRANCIE Administration Lactated Ringer's 1,000 mls @ 42 mls/hr 06/12/18 18:43 06/12/18 20:15 Lactated Ringers Solution IV 06/14/18 17:49 42 mls/hr ASDIR FRANCIE Administration Piperacillin Sod/Tazobactam 50 mls @ 100 mls/hr 06/13/18 18:00 06/13/18 18:12 Sod 3.375 gm/ Dextrose IVPB Not Given Q8H-IV FRANCIE Protocol Lactulose 20 gm 06/13/18 10:00 06/13/18 09:25 Cephulac (Oral Use) GT 20 gm DAILY FRANCIE Administration Levetiracetam 1,500 mg 06/12/18 22:00 06/13/18 09:26 Levetiracetam Oral Suspension GT 1,500 mg BID FRANCIE Administration Metoclopramide HCl 5 mg 06/12/18 22:00 06/13/18 18:12 Reglan Oral Solution - GT 5 mg QID FRANCIE Administration Metoprolol Tartrate 50 mg 06/13/18 10:00 06/13/18 09:22 Lopressor - GT 50 mg DAILY FRANCIE Administration Multi-Ingredient Ointment 1 applic 06/12/18 22:00 06/13/18 14:56 Zinc Oxide TP 1 applic TID FRANCIE Administration Pantoprazole Sodium 40 mg 06/13/18 10:00 06/13/18 09:27 Protonix Iv IVPUSH 40 mg DAILY FRANCIE Administration Phenobarbital 30 mg 06/12/18 22:00 06/13/18 09:22 Phenobarbital - GT 30 mg BID FRANCIE Administration Scopolamine HBr 1 patch 06/13/18 10:00 06/13/18 09:27 Transderm-Scop - TD 1 patch Q72H FRANCIE Administration Silver Sulfadiazine 1 applic 06/13/18 10:00 06/13/18 14:55 Silvadene - TP 1 applic DAILY FRANCIE Administration Topiramate 200 mg 06/12/18 22:00 06/13/18 09:24 Topamax - GT 200 mg BID FRANCIE Administration Topiramate 25 mg 06/13/18 10:00 06/13/18 09:22 Topamax - NR 25 mg DAILY FRANCIE Administration Valproate Sodium 750 mg 06/12/18 22:00 06/13/18 09:25 Depakene - GT 750 mg BID FRANCIE Administration Home Medications Medication Instructions Recorded Alendronate Sodium [Binosto] 70 mg GT WEEKLY 06/12/18 Amlodipine Besylate 2.5 mg GT DAILY 06/12/18 Arformoterol Tartrate [Brovana] 1 vial NEB BID 06/12/18 Ascorbic Acid 500 mg GT BID 06/12/18 Budesonide [Pulmicort 0.5 mg 1 vial NEB BID 06/12/18 Nebulizer -] Calcium Carbonate/Vitamin D3 2 each GT HS 06/12/18 [Oystercal-D 500 mg-400 Unit Tb] Calcium Carbonate/Vitamin D3 2 tablet GT HS 06/12/18 [Oystercal-D 500 mg-400 Unit Tb] Ipratropium/Albuterol Sulfate 1 vial NEB QID 06/12/18 [Iprat-Albut 0.5-3(2.5) mg/3 ml] Lactulose 30 ml GT DAILY 06/12/18 Metoclopramide HCl 5 mg GT QID 06/12/18 Metoprolol Tartrate 50 mg GT DAILY 06/12/18 Omeprazole 20 mg GT DAILY 06/12/18 Phenobarbital 32.4 mg GT BID 06/12/18 Protein Supplement [Promod] 30 ml GT DAILY 06/12/18 Scopolamine 1 each TD Q72H 06/12/18 Scopolamine [Transderm-Scop] 1 each TD Q72H 06/12/18 Silver Sulfadiazine [Silvadene] 20 gm TP DAILY 06/12/18 Simvastatin 40 mg GT DAILY 06/12/18 Topiramate 25 mg GT DAILY 06/12/18 Topiramate 200 mg GT BID 06/12/18 Valproate Sodium [Depakene] 15 ml GT BID 06/12/18 Zinc Oxide 1 applic TP TID 06/12/18 levETIRAcetam [levETIRAcetam ORAL 15 ml GT BID 06/12/18 SUSPENSION] ASSESSMENT AND PLAN: Patient is a 67 year old non-verbal female with a past medical history of anoxic brain injury, COPD ON 4LITER home 02, and seizures who was brought to the hospital from [facility] for hypoxia with labored breathing. # Aspiration Pneumonia: On zosyn continue day 2 of zosyn , ID on the case, dr Hickey. RSV and inf.A&B neg. Cx is pending #Left Upper extremity Fx in immobilzer: Xray positive for mildly nonhealing fx with some displacement. # Seizure hx: continue seizure meds. # hx of copd on 4 liter will continue : continue neb. treatment. # Hypertension controlled: continue meds. DVT Px: Lovenox
[2018-06-13] MEDS: LACTATED RINGERS SOLUTION 1,000 ML IV SCH (23:17)
[2018-06-13] MEDS: ATORVASTATIN CA 20 MG TABLET (FP) GT SCH (23:18)
[2018-06-13] MEDS: CALCIUM 500MG/VIT-D 200 UNITS COMBO TABLET (FP) GT SCH (23:18)
[2018-06-14] MEDS: ALBUTEROL SO4 2.5/IPRATROPIUM 0.5 INH SOL 3 ML VIAL.NEB. NEB PRN (00:28)
[2018-06-14] MEDS ORDERED: DEXTROSE 5%-WATER - 50 ML IVPB ONE ×3 (01:04→17:24)
[2018-06-14] MEDS ORDERED: PIPERACILLIN/TAZOBACTAM 3.375 GM VIAL IVPB ONE ×3 (01:04→17:23)
[2018-06-14] MEDS: PIPERACILLIN/TAZOB 3.375 GM 3.375 GM in DEXTROSE 5%-WATER - 50 ML IVPB SCH ×3 (01:53→17:31)
[2018-06-14] MEDS: ZINC OXIDE 20% TOPICAL OINTMENT 30 GM TUBE TP SCH ×3 (05:41→21:34)
[2018-06-14] MEDS: ARFORMOTEROL TARTRATE 15 MCG/2 ML VIAL NEB SCH ×2 (07:30→20:36)
[2018-06-14] MEDS: BUDESONIDE 0.5 MG/2 ML INH SUSP VIAL NEB SCH ×2 (07:38→20:49)
[2018-06-14] MEDS: VANCOMYCIN 1,000 MG in DEXTROSE 5%-WATER - 250 ML IVPB SCH (08:26)
[2018-06-14 08:53] LABS: BASO % 0.3 % (0-2.0); EOS % 0.5 % (0-4.5); HEMATOCRIT 36.1 % (32.4-45.2); LYMPH % 7.3 % (8-40); MCH 30.8 pg (25.7-33.7); MCHC 33.3 g/dl (32.0-36.0); MEAN CELL VOLUME 92.5 fl (80-96); MEAN PLT VOLUME 7.3 fl (7.5-11.1); MONO % 8.1 % (3.8-10.2); NEUT % 83.8 % (42.8-82.8); PLATELET COUNT 255 K/MM3 (134-434); RBC 3.91 M/mm3 (3.60-5.2); WHITE BLOOD COUNT 11.6 K/mm3 (4.0-10.0)
[2018-06-14] MEDS ORDERED: PT OWN MED DRAWER 7, Y5N ONE ×2 (10:24→21:05)
[2018-06-14] MEDS: PHENobarbital 30 MG TABLET GT SCH ×2 (10:35→21:33)
[2018-06-14] MEDS: TOPIRAMATE 25 MG TABLET (FP) NR SCH (10:35)
[2018-06-14] MEDS: amLODIPine BESYLATE 5 MG TABLET (FP) GT SCH (10:35)
[2018-06-14] MEDS: METOPROLOL TARTRATE 50 MG TABLET (FP) GT SCH (10:36)
[2018-06-14] MEDS: VALPROATE SODIUM 250 MG/5 ML UNIT DOSE CUP GT SCH ×2 (10:36→21:30)
[2018-06-14] MEDS: LACTULOSE 20 GM/30 ML UDC (FOR ORAL USE ONLY) GT SCH (10:36)
[2018-06-14] MEDS: ASCORBIC ACID 500 MG TABLET (FP) GT SCH ×2 (10:36→21:33)
[2018-06-14] MEDS: PANTOPRAZOLE SODIUM 40 MG VIAL IVPUSH SCH (10:37)
[2018-06-14] MEDS: levETIRAcetam 500 MG/5 ML ORAL SOLUTION BULK GT SCH ×2 (10:37→23:17)
[2018-06-14] MEDS: ENOXAPARIN NA (PORCINE) 40 MG/0.4 ML DISP.SYRIN SQ SCH (10:37)
[2018-06-14] MEDS: METOCLOPRAMIDE HCL 5 MG/5 ML UNIT DOSE CUP GT SCH ×4 (10:39→21:32)
[2018-06-14] MEDS: TOPIRAMATE 200 MG TABLET (FP) GT SCH ×2 (10:40→21:34)
[2018-06-14] MEDS: SILVER SULFADIAZINE 1% TOP CREAM 50 GM JAR TP SCH (10:54)
--- NOTE | 2018-06-14 14:09 | PN ---
Progress Note, Physician History of Present Illness: patient still continues to be sob on bipap poor respirations - Current Medication List Current Medications: Active Medications Acetaminophen (Tylenol -) 650 mg PO Q4H PRN PRN Reason: FEVER Albuterol/Ipratropium (Duoneb -) 1 amp NEB Q6H PRN PRN Reason: SHORTNESS OF BREATH Last Admin: 06/14/18 00:28 Dose: 1 amp Amlodipine Besylate (Norvasc -) 2.5 mg GT DAILY FRANCIE Last Admin: 06/14/18 10:35 Dose: 2.5 mg Arformoterol Tartrate (Brovana (Restricted To Pulmonology/Resp) -) 1 amp NEB RBID FRANCIE Last Admin: 06/14/18 07:30 Dose: 1 amp Ascorbic Acid (Vitamin C -) 500 mg GT BID FRANCIE Last Admin: 06/14/18 10:36 Dose: 500 mg Atorvastatin Calcium (Lipitor -) 20 mg GT HS FRANCIE Last Admin: 06/13/18 23:18 Dose: 20 mg Budesonide (Pulmicort 0.5 Mg Nebulizer -) 1 amp NEB RBID FRANCIE Last Admin: 06/14/18 07:38 Dose: 1 amp Calcium Carbonate/Cholecalciferol (Os-Jamar 500+D -) 2 tab GT HS FRANCIE Last Admin: 06/13/18 23:18 Dose: 2 tab Enoxaparin Sodium (Lovenox -) 40 mg SQ DAILY [facility] Last Admin: 06/14/18 10:37 Dose: 40 mg Lactated Ringer's (Lactated Ringers Solution) 1,000 mls @ 42 mls/hr IV ASDIR FRANCIE Stop: 06/14/18 17:49 Last Admin: 06/13/18 23:17 Dose: 42 mls/hr Piperacillin Sod/Tazobactam (Sod 3.375 gm/ Dextrose) 50 mls @ 100 mls/hr IVPB Q8H-IV FRANCIE; Protocol Last Admin: 06/14/18 10:39 Dose: 100 mls/hr Lactulose (Cephulac (Oral Use)) 20 gm GT DAILY FRANCIE Last Admin: 06/14/18 10:36 Dose: 20 gm Levetiracetam (Levetiracetam Oral Suspension) 1,500 mg GT BID FRANCIE Last Admin: 06/14/18 10:37 Dose: 1,500 mg Metoclopramide HCl (Reglan Oral Solution -) 5 mg GT QID [facility] Last Admin: 06/14/18 10:39 Dose: 5 mg Metoprolol Tartrate (Lopressor -) 50 mg GT DAILY [facility] Last Admin: 06/14/18 10:36 Dose: 50 mg Multi-Ingredient Ointment (Zinc Oxide) 1 applic TP TID [facility] Last Admin: 06/14/18 05:41 Dose: 1 applic Pantoprazole Sodium (Protonix Iv) 40 mg IVPUSH DAILY [facility] Last Admin: 06/14/18 10:37 Dose: 40 mg Phenobarbital (Phenobarbital -) 30 mg GT BID [facility] Last Admin: 06/14/18 10:35 Dose: 30 mg Scopolamine HBr (Transderm-Scop -) 1 patch TD Q72H [facility] Last Admin: 06/13/18 09:27 Dose: 1 patch Silver Sulfadiazine (Silvadene -) 1 applic TP DAILY [facility] Last Admin: 06/14/18 10:54 Dose: 1 applic Topiramate (Topamax -) 200 mg GT BID [facility] Last Admin: 06/14/18 10:40 Dose: 200 mg Topiramate (Topamax -) 25 mg NR DAILY [facility] Last Admin: 06/14/18 10:35 Dose: 25 mg Valproate Sodium (Depakene -) 750 mg GT BID [facility] Last Admin: 06/14/18 10:36 Dose: 750 mg - Objective Vital Signs: Vital Signs Temperature 98.4 F 06/14/18 10:34 Pulse Rate 104 H 06/14/18 10:34 Respiratory Rate 19 06/14/18 10:34 Blood Pressure 145/83 06/14/18 10:34 O2 Sat by Pulse Oximetry (%) 98 06/14/18 09:00 Constitutional: Yes: Mild Distress Cardiovascular: Yes: Regular Rate and Rhythm Respiratory: Yes: On BiPap, Poor Air Entry Gastrointestinal: Yes: Normal Bowel Sounds, Soft, Other (peg tube) Musculoskeletal: Yes: WNL Extremities: Yes: Other (contracted) Neurological: Yes: Lethargy Psychiatric: Yes: Other Labs: CBC, BMP 06/14/18 08:39 06/13/18 06:30 INR, PTT INR 1.02 (0.83-1.09) 06/12/18 16:07 Assessment/Plan Problem List - Problems (1) Acute respiratory failure with hypoxia Code(s): J96.01 - ACUTE RESPIRATORY FAILURE WITH HYPOXIA (2) Anoxic brain damage Code(s): G93.1 - ANOXIC BRAIN DAMAGE, NOT ELSEWHERE CLASSIFIED (3) Aspiration pneumonia Code(s): J69.0 - PNEUMONITIS DUE TO INHALATION OF FOOD AND VOMIT (4) COPD exacerbation Code(s): J44.1 - CHRONIC OBSTRUCTIVE PULMONARY DISEASE W (ACUTE) EXACERBATION (5) Fracture of left humerus Code(s): S42.302A - UNSP FRACTURE OF SHAFT OF HUMERUS, LEFT ARM, INIT (6) Functional quadriplegia Code(s): R53.2 - FUNCTIONAL QUADRIPLEGIA (7) HLD (hyperlipidemia) Code(s): E78.5 - HYPERLIPIDEMIA, UNSPECIFIED (8) HTN (hypertension) Code(s): I10 - ESSENTIAL (PRIMARY) HYPERTENSION (9) Scoliosis deformity of spine Code(s): M41.9 - SCOLIOSIS, UNSPECIFIED (10) Seizure disorder Code(s): G40.909 - EPILEPSY, UNSP, NOT INTRACTABLE, WITHOUT STATUS EPILEPTICUS (11) Shortness of breath Code(s): R06.02 - SHORTNESS OF BREATH uti Assessment/Plan PNA - suspected Aspiration UTI Respiratory distress - on BIPAP Fever Leukocytosis LUE fracture Anoxic brain injury Functional Quadriplegia HTN HLD Seizure d.o. COPD plan continue abx resp support close monitoring rest as per the team
--- NOTE | 2018-06-14 16:22 | PN ---
Physical Exam: SUBJECTIVE: Patient seen and examined this AM. Resting comfortably. No acute overnight events as per nursing. OBJECTIVE: Vital Signs Period Temp Pulse Resp BP Sys/Restrepo Pulse Ox Last 24 Hr 97.8 F-98.5 F 83-112 18-24 133-167/74-96 98-98 GENERAL: NAD HEAD: Microcephaly EYES: PERRL ENT: Moist mucous membranes NECK: No JVD LUNGS: Coarse breath sounds throughout, no wheezes, no crackles HEART: RRR, S1, S2 without murmur ABDOMEN: Soft, mildly distended, + bowel sounds, GTube present on the left without surrounding erythema or drainage EXTREMITIES: All extremities contracted, 1+ right pedal edema NEUROLOGICAL: Unable to assess SKIN: Warm, Dry Laboratory Results - last 24 hr 06/14/18 08:39 WBC 11.6 H RBC 3.91 Hgb 12.0 Hct 36.1 MCV 92.5 MCH 30.8 MCHC 33.3 RDW 14.0 Plt Count 255 MPV 7.3 L Absolute Neuts (auto) 9.7 H Neutrophils % 83.8 H Lymphocytes % 7.3 L D Monocytes % 8.1 Eosinophils % 0.5 D Basophils % 0.3 Nucleated RBC % 0 Microbiology 06/12/18 18:49 Urine - Urine Clean Catch Urine Culture - Preliminary Non Lactose Fermenting Gnb 06/12/18 17:30 Blood - Peripheral Venous Blood Culture - Preliminary NO GROWTH OBTAINED AFTER 24 HOURS, INCUBATION TO CONTINUE FOR 4 DAYS. 06/12/18 17:30 Blood - Peripheral Venous Blood Culture - Preliminary NO GROWTH OBTAINED AFTER 24 HOURS, INCUBATION TO CONTINUE FOR 4 DAYS. 06/12/18 19:05 Urine For Antigen Detection Legionella Antigen - Final 06/12/18 19:05 Urine For Antigen Detection Streptococcus pneumoniae Antigen (M - Final Active Medications Acetaminophen (Tylenol -) 650 mg PO Q4H PRN PRN Reason: FEVER Albuterol/Ipratropium (Duoneb -) 1 amp NEB Q6H PRN PRN Reason: SHORTNESS OF BREATH Last Admin: 06/14/18 00:28 Dose: 1 amp Amlodipine Besylate (Norvasc -) 2.5 mg GT DAILY FRANCIE Last Admin: 06/14/18 10:35 Dose: 2.5 mg Arformoterol Tartrate (Brovana (Restricted To Pulmonology/Resp) -) 1 amp NEB RBID [facility] Last Admin: 06/14/18 07:30 Dose: 1 amp Ascorbic Acid (Vitamin C -) 500 mg GT BID [facility] Last Admin: 06/14/18 10:36 Dose: 500 mg Atorvastatin Calcium (Lipitor -) 20 mg GT HS [facility] Last Admin: 06/13/18 23:18 Dose: 20 mg Budesonide (Pulmicort 0.5 Mg Nebulizer -) 1 amp NEB RBID [facility] Last Admin: 06/14/18 07:38 Dose: 1 amp Calcium Carbonate/Cholecalciferol (Os-Jamar 500+D -) 2 tab GT HS [facility] Last Admin: 06/13/18 23:18 Dose: 2 tab Enoxaparin Sodium (Lovenox -) 40 mg SQ DAILY [facility] Last Admin: 06/14/18 10:37 Dose: 40 mg Lactated Ringer's (Lactated Ringers Solution) 1,000 mls @ 42 mls/hr IV ASDIR FRANCIE Stop: 06/14/18 17:49 Last Admin: 06/13/18 23:17 Dose: 42 mls/hr Piperacillin Sod/Tazobactam (Sod 3.375 gm/ Dextrose) 50 mls @ 100 mls/hr IVPB Q8H-IV FRANCIE; Protocol Last Admin: 06/14/18 10:39 Dose: 100 mls/hr Lactulose (Cephulac (Oral Use)) 20 gm GT DAILY [facility] Last Admin: 06/14/18 10:36 Dose: 20 gm Levetiracetam (Levetiracetam Oral Suspension) 1,500 mg GT BID [facility] Last Admin: 06/14/18 10:37 Dose: 1,500 mg Metoclopramide HCl (Reglan Oral Solution -) 5 mg GT QID [facility] Last Admin: 06/14/18 14:55 Dose: 5 mg Metoprolol Tartrate (Lopressor -) 50 mg GT DAILY [facility] Last Admin: 06/14/18 10:36 Dose: 50 mg Multi-Ingredient Ointment (Zinc Oxide) 1 applic TP TID [facility] Last Admin: 06/14/18 15:21 Dose: 1 applic Pantoprazole Sodium (Protonix Iv) 40 mg IVPUSH DAILY [facility] Last Admin: 06/14/18 10:37 Dose: 40 mg Phenobarbital (Phenobarbital -) 30 mg GT BID [facility] Last Admin: 06/14/18 10:35 Dose: 30 mg Scopolamine HBr (Transderm-Scop -) 1 patch TD Q72H [facility] Last Admin: 06/13/18 09:27 Dose: 1 patch Silver Sulfadiazine (Silvadene -) 1 applic TP DAILY [facility] Last Admin: 06/14/18 10:54 Dose: 1 applic Topiramate (Topamax -) 200 mg GT BID [facility] Last Admin: 06/14/18 10:40 Dose: 200 mg Topiramate (Topamax -) 25 mg NR DAILY [facility] Last Admin: 06/14/18 10:35 Dose: 25 mg Valproate Sodium (Depakene -) 750 mg GT BID [facility] Last Admin: 06/14/18 10:36 Dose: 750 mg IMAGING: -Left Humerus: 2 views of the left humerus reveal a healing fracture deformity of the mid shaft of the left humerus. There is some displacement at the fracture site as shown in one view. The imaging is available for review. -CXR: No significant interval change or gross acute lung disease is present. ASSESSMENT/PLAN: 67 y/o non-verbal Female with PMHx of anoxic brain injury, COPD (on 4L at home) , seizures presented with respiratory distress and found to be in Sepsis #Sepsis -Likely due to Aspiration PNA -HR and Leukocytosis improving -Piperacillin/Tazobactam 3.375 Q6H -Urine cx: Non Lactose Fermenting Gnb -ID (Dr. Hickey) consulted -LR @ 42 mls/hr -Hold tube feeds in the setting of Aspiration -Keep HOB elevated -Aspiration precautions #COPD -Continue Albuterol/Ipratropium, Arformoterol -Supplemental O2 to maintain SpO2 88-92% #Chronic L arm fracture -Continue to use brace #Hypertension -Continue Metoprolol Tartrate 50 mg GT Daily, Amlodipine 2.5mg GT Daily, Budesonide 1 amp NEB BID #HLD -Continue Atorvastatin 20mg GT HS #GERD -Continue Metoclopramide, Pantoprazole, Lactulose #Seizures -Continue Levetiracetam, Valproate, Topiramate, Phenobarbital #FEN -LR @ 42 -Monitor lytes -NPO #PPx -Lovenox Visit type - Emergency Visit Emergency Visit: Yes ED Registration Date: 06/12/18 Care time: The patient presented to the Emergency Department on the above date and was hospitalized for further evaluation of their emergent condition. - New Patient This patient is new to me today: No - Critical Care Critical Care patient: No - Discharge Referral Referred to [facility] Med P.C.: No
[2018-06-14] MEDS: CALCIUM 500MG/VIT-D 200 UNITS COMBO TABLET (FP) GT SCH (21:33)
[2018-06-14] MEDS: ATORVASTATIN CA 20 MG TABLET (FP) GT SCH (21:33)
--- NOTE | 2018-06-14 21:56 | PN ---
Teaching Attending Note Name of Resident: Melania Marin ATTENDING PHYSICIAN STATEMENT I saw and evaluated the patient. I reviewed the resident's note and discussed the case with the resident. I agree with the resident's findings and plan as documented. SUBJECTIVE: Patient is non verbal, no issues at this time, lying in bed comfortably. OBJECTIVE: Vital Signs Temperature 97.0 F L 06/14/18 18:05 Pulse Rate 112 H 06/14/18 20:20 Respiratory Rate 30 H 06/14/18 20:20 Blood Pressure 159/92 06/14/18 20:20 O2 Sat by Pulse Oximetry (%) 98 06/14/18 09:00 GENERAL: The patient is nonverbal, lying in bed in NAD. HEAD: Normal with no signs of trauma. EYES: PERRL, sclera anicteric, conjunctiva clear. ENT: Ears normal, on Bipap now , NECK: Trachea midline, supple. LUNGS: decreased BS BL , no wheeze, no crackles, mild accessory muscle use. HEART: tachycardic sinus, S1, S2 without murmur, rub or gallop. ABDOMEN: Soft, nontender, nondistended, normoactive bowel sounds, no guarding, no rebound, positive for G tube. EXTREMITIES: 2+ pulses, warm, well-perfused, no edema. left humural fx, in a cast. NEUROLOGICAL: Cranial nerves II through XII grossly intact. PSYCH: non verbal, cannot be accessed , does not follow any commands SKIN: Warm, dry, normal turgor, no rashes or lesions appreciated CBCD WBC 11.6 K/mm3 (4.0-10.0) H 06/14/18 08:39 RBC 3.91 M/mm3 (3.60-5.2) 06/14/18 08:39 Hgb 12.0 GM/dL (10.7-15.3) 06/14/18 08:39 Hct 36.1 % (32.4-45.2) 06/14/18 08:39 MCV 92.5 fl (80-96) 06/14/18 08:39 MCHC 33.3 g/dl (32.0-36.0) 06/14/18 08:39 RDW 14.0 % (11.6-15.6) 06/14/18 08:39 Plt Count 255 K/MM3 (134-434) 06/14/18 08:39 MPV 7.3 fl (7.5-11.1) L 06/14/18 08:39 CMP Sodium 139 mmol/L (136-145) 06/13/18 06:30 Potassium 3.6 mmol/L (3.5-5.1) 06/13/18 06:30 Chloride 101 mmol/L (98-107) 06/13/18 06:30 Carbon Dioxide 33 mmol/L (21-32) H 06/13/18 06:30 Anion Gap 5 MMOL/L (8-16) L 06/13/18 06:30 BUN 8 mg/dL (7-18) 06/13/18 06:30 Creatinine < 0.2 mg/dL (0.55-1.3) L 06/13/18 06:30 Creat Clearance w eGFR 356.50 (>60) 06/13/18 06:30 Random Glucose 80 mg/dL (74-106) 06/13/18 06:30 Calcium 8.4 mg/dL (8.5-10.1) L 06/13/18 06:30 Total Bilirubin 0.2 mg/dL (0.2-1) 06/12/18 15:34 AST 21 U/L (15-37) 06/12/18 15:34 ALT 23 U/L (13-61) 06/12/18 15:34 Alkaline Phosphatase 326 U/L (45-117) H 06/12/18 15:34 Total Protein 7.9 g/dl (6.4-8.2) 06/12/18 15:34 Albumin 3.0 g/dl (3.4-5.0) L 06/12/18 15:34 Current Medications Generic Name Dose Route Start Last Admin Trade Name Freq PRN Reason Stop Dose Admin Acetaminophen 650 mg 06/12/18 17:46 Tylenol - PO Q4H PRN FEVER Albuterol/Ipratropium 1 amp 06/12/18 19:56 06/14/18 00:28 Duoneb - NEB 1 amp Q6H PRN Administration SHORTNESS OF BREATH Amlodipine Besylate 2.5 mg 06/13/18 10:00 06/14/18 10:35 Norvasc - GT 2.5 mg DAILY FRANCIE Administration Arformoterol Tartrate 1 amp 06/12/18 20:00 06/14/18 20:36 Brovana (Restricted To Pulmonology/Resp) - NEB 1 amp RBID FRANCIE Administration Ascorbic Acid 500 mg 06/12/18 22:00 06/14/18 21:33 Vitamin C - GT 500 mg BID FRANCIE Administration Atorvastatin Calcium 20 mg 06/13/18 22:00 06/14/18 21:33 Lipitor - GT 20 mg HS FRANCIE Administration Budesonide 1 amp 06/12/18 20:00 06/14/18 20:49 Pulmicort 0.5 Mg Nebulizer - NEB 1 amp RBID FRANCIE Administration Calcium Carbonate/Cholecalciferol 2 tab 06/12/18 22:00 06/14/18 21:33 Os-Jamar 500+D - GT 2 tab HS FRANCIE Administration Enoxaparin Sodium 40 mg 06/13/18 10:00 06/14/18 10:37 Lovenox - SQ 40 mg DAILY FRANCIE Administration Piperacillin Sod/Tazobactam 50 mls @ 100 mls/hr 06/13/18 18:00 06/14/18 17:31 Sod 3.375 gm/ Dextrose IVPB 100 mls/hr Q8H-IV FRANCIE Administration Protocol Lactulose 20 gm 06/13/18 10:00 06/14/18 10:36 Cephulac (Oral Use) GT 20 gm DAILY FRANCIE Administration Levetiracetam 1,500 mg 06/12/18 22:00 06/14/18 10:37 Levetiracetam Oral Suspension GT 1,500 mg BID FRANCIE Administration Metoclopramide HCl 5 mg 06/12/18 22:00 06/14/18 21:32 Reglan Oral Solution - GT 5 mg QID FRANCIE Administration Metoprolol Tartrate 50 mg 06/13/18 10:00 06/14/18 10:36 Lopressor - GT 50 mg DAILY FRANCIE Administration Multi-Ingredient Ointment 1 applic 06/12/18 22:00 06/14/18 21:34 Zinc Oxide TP 1 applic TID FRANCIE Administration Pantoprazole Sodium 40 mg 06/13/18 10:00 06/14/18 10:37 Protonix Iv IVPUSH 40 mg DAILY FRANCIE Administration Phenobarbital 30 mg 06/12/18 22:00 06/14/18 21:33 Phenobarbital - GT 30 mg BID FRANCIE Administration Scopolamine HBr 1 patch 06/13/18 10:00 06/13/18 09:27 Transderm-Scop - TD 1 patch Q72H FRANCIE Administration Silver Sulfadiazine 1 applic 06/13/18 10:00 06/14/18 10:54 Silvadene - TP 1 applic DAILY FRANCIE Administration Topiramate 200 mg 06/12/18 22:00 06/14/18 21:34 Topamax - GT 200 mg BID FRANCIE Administration Topiramate 25 mg 06/13/18 10:00 06/14/18 10:35 Topamax - NR 25 mg DAILY FRANCIE Administration Valproate Sodium 750 mg 06/12/18 22:00 06/14/18 21:30 Depakene - GT 750 mg BID FRANCIE Administration Home Medications Medication Instructions Recorded Alendronate Sodium [Binosto] 70 mg GT WEEKLY 06/12/18 Amlodipine Besylate 2.5 mg GT DAILY 06/12/18 Arformoterol Tartrate [Brovana] 1 vial NEB BID 06/12/18 Ascorbic Acid 500 mg GT BID 06/12/18 Budesonide [Pulmicort 0.5 mg 1 vial NEB BID 06/12/18 Nebulizer -] Calcium Carbonate/Vitamin D3 2 each GT HS 06/12/18 [Oystercal-D 500 mg-400 Unit Tb] Calcium Carbonate/Vitamin D3 2 tablet GT HS 06/12/18 [Oystercal-D 500 mg-400 Unit Tb] Ipratropium/Albuterol Sulfate 1 vial NEB QID 06/12/18 [Iprat-Albut 0.5-3(2.5) mg/3 ml] Lactulose 30 ml GT DAILY 06/12/18 Metoclopramide HCl 5 mg GT QID 06/12/18 Metoprolol Tartrate 50 mg GT DAILY 06/12/18 Omeprazole 20 mg GT DAILY 06/12/18 Phenobarbital 32.4 mg GT BID 06/12/18 Protein Supplement [Promod] 30 ml GT DAILY 06/12/18 Scopolamine 1 each TD Q72H 06/12/18 Scopolamine [Transderm-Scop] 1 each TD Q72H 06/12/18 Silver Sulfadiazine [Silvadene] 20 gm TP DAILY 06/12/18 Simvastatin 40 mg GT DAILY 06/12/18 Topiramate 25 mg GT DAILY 06/12/18 Topiramate 200 mg GT BID 06/12/18 Valproate Sodium [Depakene] 15 ml GT BID 06/12/18 Zinc Oxide 1 applic TP TID 06/12/18 levETIRAcetam [levETIRAcetam ORAL 15 ml GT BID 06/12/18 SUSPENSION] Microbiology 06/12/18 17:30 Blood - Peripheral Venous Blood Culture - Preliminary NO GROWTH OBTAINED AFTER 48 HOURS, INCUBATION TO CONTINUE FOR 3 DAYS. 06/12/18 17:30 Blood - Peripheral Venous Blood Culture - Preliminary NO GROWTH OBTAINED AFTER 48 HOURS, INCUBATION TO CONTINUE FOR 3 DAYS. 06/12/18 18:49 Urine - Urine Clean Catch Urine Culture - Preliminary Non Lactose Fermenting Gnb 06/12/18 19:05 Urine For Antigen Detection Legionella Antigen - Final 06/12/18 19:05 Urine For Antigen Detection Streptococcus pneumoniae Antigen (M - Final ASSESSMENT AND PLAN: Patient is a 67 year old non-verbal female with a past medical history of anoxic brain injury, COPD ON 4LITER home 02, and seizures who was brought to the hospital from [facility] for hypoxia with labored breathing. # Aspiration Pneumonia: On zosyn , ID on the case, dr Hickey. RSV and inf.A&B neg. #Left Upper extremity Fx in immobilzer: Xray positive for mildly nonhealing fx with some displacement. # UTI ;NLFGnB on IV zosyn, waiting for final cx and sensitivity. # Seizure hx: continue seizure meds. # hx of copd on 4 liter will continue : continue neb. treatment. # Hypertension Uncontrolled: continue meds. meds per Gtube for now. will monitor DVT Px: Lovenox
[2018-06-14 23:51] LABS: ARTERIAL BLD GAS O2 SATURATION 96.4 % (95-98); ARTERIAL BLOOD GAS BASE EXCESS 7.6 meq/l (-2-2); ARTERIAL BLOOD GAS PO2 97.3 mmHg (80-105); ARTERIAL BLOOD GAS pH 7.27 (7.35-7.45)
[2018-06-14 23:54] LABS: ARTERIAL BLOOD GAS PCO2 83.9 mmHg (35-45)
[2018-06-15] MEDS: ALBUTEROL SO4 2.5/IPRATROPIUM 0.5 INH SOL 3 ML VIAL.NEB. NEB PRN
--- NOTE | 2018-06-15 00:08 | PN ---
Progress Note (short form) - Note Progress Note: Paged by nurse, patient noted to be in respiratory distress. Patient breathing heavily on 4L NC, saturation maintained at 94% Breathing treatment given with minimal response. BP 161/99, HR 112, RR 34, O2 sat 94% on 4L NC Patient awake, nonverbal, in respiratory distress Lung: coarse breath sounds bilaterally Heart: RRR, no murmurs ABG done: pH 7.27 PCO2 83.9 PO2 97.3 HCO3 37.4 CXR ordered Will put patient on bipap 02/07/40 Will continue to monitor. 2:04am patient resting comfortably as per nursing on bipap. will repeat ABG.
[2018-06-15] MEDS ORDERED: PIPERACILLIN/TAZOBACTAM 3.375 GM VIAL IVPB ONE ×3 (00:52→18:08)
[2018-06-15] MEDS ORDERED: DEXTROSE 5%-WATER - 50 ML IVPB ONE ×3 (00:53→18:08)
[2018-06-15] MEDS ORDERED: LACTATED RINGERS SOLUTION 1,000 ML/1,000 ML INFUS.BAG IV SCH (02:15)
[2018-06-15] MEDS: PIPERACILLIN/TAZOB 3.375 GM 3.375 GM in DEXTROSE 5%-WATER - 50 ML IVPB SCH ×3 (02:34→18:28)
[2018-06-15 05:31] LABS: ARTERIAL BLD GAS O2 SATURATION 94.6 % (95-98); ARTERIAL BLOOD GAS BASE EXCESS 10.5 meq/l (-2-2); ARTERIAL BLOOD GAS PCO2 64.7 mmHg (35-45); ARTERIAL BLOOD GAS PO2 72.2 mmHg (80-105); ARTERIAL BLOOD GAS pH 7.38 (7.35-7.45)
[2018-06-15 05:33] LABS: ALLENS TEST POSITIVE
[2018-06-15] MEDS: ZINC OXIDE 20% TOPICAL OINTMENT 30 GM TUBE TP SCH ×3 (05:38→22:09)
[2018-06-15 08:12] LABS: BASO % 0.2 % (0-2.0); HEMATOCRIT 38.4 % (32.4-45.2); HEMOGLOBIN 12.6 GM/dL (10.7-15.3); LYMPH % 6.1 % (8-40); MCH 30.4 pg (25.7-33.7); MCHC 32.7 g/dl (32.0-36.0); MEAN CELL VOLUME 92.8 fl (80-96); MEAN PLT VOLUME 7.8 fl (7.5-11.1); MONO % 11.3 % (3.8-10.2); NEUT % 82.4 % (42.8-82.8); PLATELET COUNT 327 K/MM3 (134-434); RBC 4.14 M/mm3 (3.60-5.2); RDW 14.2 % (11.6-15.6); WHITE BLOOD COUNT 14.7 K/mm3 (4.0-10.0)
[2018-06-15] MEDS: ARFORMOTEROL TARTRATE 15 MCG/2 ML VIAL NEB SCH ×2 (08:47→20:00)
[2018-06-15] MEDS: BUDESONIDE 0.5 MG/2 ML INH SUSP VIAL NEB SCH ×2 (08:48→20:00)
--- NOTE | 2018-06-15 09:00 | PN ---
Progress Note (short form) - Note Progress Note: was called this morning that the patient is having a labored breaTHING. Vital Signs Temperature 98.4 F 06/15/18 05:44 Pulse Rate 126 H 06/15/18 05:44 Respiratory Rate 30 H 06/15/18 05:44 Blood Pressure 174/97 H 06/15/18 05:44 O2 Sat by Pulse Oximetry (%) 94 L 06/15/18 08:48 Initial Vital Signs Pulse Ox 98 06/12/18 14:40 GENERAL: The patient is nonverbal, lying in bed with moderate distress. on bipap now. HEAD: Normal with no signs of trauma. EYES: PERRL, sclera anicteric, conjunctiva clear. ENT: Ears normal, on Bipap now , NECK: Trachea midline, supple. LUNGS: decreased BS BL , no wheeze, no crackles, mild accessory muscle use. HEART: tachycardic sinus, S1, S2 without murmur, rub or gallop. ABDOMEN: Soft, nontender, nondistended, normoactive bowel sounds, no guarding, no rebound, positive for G tube. EXTREMITIES: 2+ pulses, warm, well-perfused, no edema. left humural fx, in a cast. NEUROLOGICAL: Cranial nerves II through XII grossly intact. PSYCH: non verbal, cannot be accessed , does not follow any commands SKIN: Warm, dry, normal turgor, no rashes or lesions appreciated CBCD WBC 14.7 K/mm3 (4.0-10.0) H 06/15/18 05:30 RBC 4.14 M/mm3 (3.60-5.2) 06/15/18 05:30 Hgb 12.6 GM/dL (10.7-15.3) 06/15/18 05:30 Hct 38.4 % (32.4-45.2) 06/15/18 05:30 MCV 92.8 fl (80-96) 06/15/18 05:30 MCHC 32.7 g/dl (32.0-36.0) 06/15/18 05:30 RDW 14.2 % (11.6-15.6) 06/15/18 05:30 Plt Count 327 K/MM3 (134-434) D 06/15/18 05:30 MPV 7.8 fl (7.5-11.1) 06/15/18 05:30 CMP Sodium 139 mmol/L (136-145) 06/13/18 06:30 Potassium 3.6 mmol/L (3.5-5.1) 06/13/18 06:30 Chloride 101 mmol/L (98-107) 06/13/18 06:30 Carbon Dioxide 33 mmol/L (21-32) H 06/13/18 06:30 Anion Gap 5 MMOL/L (8-16) L 06/13/18 06:30 BUN 8 mg/dL (7-18) 06/13/18 06:30 Creatinine < 0.2 mg/dL (0.55-1.3) L 06/13/18 06:30 Creat Clearance w eGFR 356.50 (>60) 06/13/18 06:30 Random Glucose 80 mg/dL (74-106) 06/13/18 06:30 Calcium 8.4 mg/dL (8.5-10.1) L 06/13/18 06:30 Total Bilirubin 0.2 mg/dL (0.2-1) 06/12/18 15:34 AST 21 U/L (15-37) 06/12/18 15:34 ALT 23 U/L (13-61) 06/12/18 15:34 Alkaline Phosphatase 326 U/L (45-117) H 06/12/18 15:34 Total Protein 7.9 g/dl (6.4-8.2) 06/12/18 15:34 Albumin 3.0 g/dl (3.4-5.0) L 06/12/18 15:34 Current Medications Generic Name Dose Route Start Last Admin Trade Name Freq PRN Reason Stop Dose Admin Acetaminophen 650 mg 06/12/18 17:46 Tylenol - PO Q4H PRN FEVER Albuterol/Ipratropium 1 amp 06/12/18 19:56 06/15/18 00:00 Duoneb - NEB 1 amp Q6H PRN Administration SHORTNESS OF BREATH Amlodipine Besylate 2.5 mg 06/13/18 10:00 06/14/18 10:35 Norvasc - GT 2.5 mg DAILY FRANCIE Administration Arformoterol Tartrate 1 amp 06/12/18 20:00 06/15/18 08:47 Brovana (Restricted To Pulmonology/Resp) - NEB 1 amp RBID FRANCIE Administration Ascorbic Acid 500 mg 06/12/18 22:00 06/14/18 21:33 Vitamin C - GT 500 mg BID FRANCIE Administration Atorvastatin Calcium 20 mg 06/13/18 22:00 06/14/18 21:33 Lipitor - GT 20 mg HS FRANCIE Administration Budesonide 1 amp 06/12/18 20:00 06/15/18 08:48 Pulmicort 0.5 Mg Nebulizer - NEB 1 amp RBID FRANCIE Administration Calcium Carbonate/Cholecalciferol 2 tab 06/12/18 22:00 06/14/18 21:33 Os-Jamar 500+D - GT 2 tab HS FRANCIE Administration Enoxaparin Sodium 40 mg 06/13/18 10:00 06/14/18 10:37 Lovenox - SQ 40 mg DAILY FRANCIE Administration Piperacillin Sod/Tazobactam 50 mls @ 100 mls/hr 06/13/18 18:00 06/15/18 02:34 Sod 3.375 gm/ Dextrose IVPB 100 mls/hr Q8H-IV FRANCIE Administration Protocol Lactated Ringer's 1,000 ml in 1,000 mls @ 42 mls/hr 06/15/18 02:15 06/15/18 02:11 Lactated Ringers Solution IV 42 mls/hr ASDIR FRANCIE Administration Lactulose 20 gm 06/13/18 10:00 06/14/18 10:36 Cephulac (Oral Use) GT 20 gm DAILY FRANCIE Administration Levetiracetam 1,500 mg 06/12/18 22:00 06/14/18 23:17 Levetiracetam Oral Suspension GT 1,500 mg BID FRANCIE Administration Metoclopramide HCl 5 mg 06/12/18 22:00 06/14/18 21:32 Reglan Oral Solution - GT 5 mg QID FRANCIE Administration Metoprolol Tartrate 50 mg 06/13/18 10:00 06/14/18 10:36 Lopressor - GT 50 mg DAILY FRANCIE Administration Multi-Ingredient Ointment 1 applic 06/12/18 22:00 06/15/18 05:38 Zinc Oxide TP 1 applic TID FRANCIE Administration Pantoprazole Sodium 40 mg 06/13/18 10:00 06/14/18 10:37 Protonix Iv IVPUSH 40 mg DAILY FRANCIE Administration Phenobarbital 30 mg 06/12/18 22:00 06/14/18 21:33 Phenobarbital - GT 30 mg BID FRANCIE Administration Scopolamine HBr 1 patch 06/13/18 10:00 06/13/18 09:27 Transderm-Scop - TD 1 patch Q72H FRANCIE Administration Silver Sulfadiazine 1 applic 06/13/18 10:00 06/14/18 10:54 Silvadene - TP 1 applic DAILY FRANCIE Administration Topiramate 200 mg 06/12/18 22:00 06/14/18 21:34 Topamax - GT 200 mg BID FRANCIE Administration Topiramate 25 mg 06/13/18 10:00 06/14/18 10:35 Topamax - NR 25 mg DAILY FRANCIE Administration Valproate Sodium 750 mg 06/12/18 22:00 06/14/18 21:30 Depakene - GT 750 mg BID FRANCIE Administration Home Medications Medication Instructions Recorded Alendronate Sodium [Binosto] 70 mg GT WEEKLY 06/12/18 Amlodipine Besylate 2.5 mg GT DAILY 06/12/18 Arformoterol Tartrate [Brovana] 1 vial NEB BID 06/12/18 Ascorbic Acid 500 mg GT BID 06/12/18 Budesonide [Pulmicort 0.5 mg 1 vial NEB BID 06/12/18 Nebulizer -] Calcium Carbonate/Vitamin D3 2 each GT HS 06/12/18 [Oystercal-D 500 mg-400 Unit Tb] Calcium Carbonate/Vitamin D3 2 tablet GT HS 06/12/18 [Oystercal-D 500 mg-400 Unit Tb] Ipratropium/Albuterol Sulfate 1 vial NEB QID 06/12/18 [Iprat-Albut 0.5-3(2.5) mg/3 ml] Lactulose 30 ml GT DAILY 06/12/18 Metoclopramide HCl 5 mg GT QID 06/12/18 Metoprolol Tartrate 50 mg GT DAILY 06/12/18 Omeprazole 20 mg GT DAILY 06/12/18 Phenobarbital 32.4 mg GT BID 06/12/18 Protein Supplement [Promod] 30 ml GT DAILY 06/12/18 Scopolamine 1 each TD Q72H 06/12/18 Scopolamine [Transderm-Scop] 1 each TD Q72H 06/12/18 Silver Sulfadiazine [Silvadene] 20 gm TP DAILY 06/12/18 Simvastatin 40 mg GT DAILY 06/12/18 Topiramate 25 mg GT DAILY 06/12/18 Topiramate 200 mg GT BID 06/12/18 Valproate Sodium [Depakene] 15 ml GT BID 06/12/18 Zinc Oxide 1 applic TP TID 06/12/18 levETIRAcetam [levETIRAcetam ORAL 15 ml GT BID 06/12/18 SUSPENSION] ABG Results ABG pH 7.38 (7.35-7.45) 06/15/18 05:25 ABG pCO2 at Pt Temp 64.7 mmHg (35-45) H 06/15/18 05:25 ABG pO2 at Pt Temp 72.2 mmHg (80-105) L 06/15/18 05:25 ABG HCO3 37.6 mmol/L (22-27) H 06/15/18 05:25 ABG O2 Sat (Measured) 94.6 % (95-98) L 06/15/18 05:25 ABG O2 Content 16.4 % vol (15-22) 06/15/18 05:25 ABG Base Excess 10.5 meq/l (-2-2) H 06/15/18 05:25 Microbiology 06/12/18 17:30 Blood - Peripheral Venous Blood Culture - Preliminary NO GROWTH OBTAINED AFTER 48 HOURS, INCUBATION TO CONTINUE FOR 3 DAYS. 06/12/18 17:30 Blood - Peripheral Venous Blood Culture - Preliminary NO GROWTH OBTAINED AFTER 48 HOURS, INCUBATION TO CONTINUE FOR 3 DAYS. 06/12/18 18:49 Urine - Urine Clean Catch Urine Culture - Preliminary Non Lactose Fermenting Gnb 06/12/18 19:05 Urine For Antigen Detection Legionella Antigen - Final 06/12/18 19:05 Urine For Antigen Detection Streptococcus pneumoniae Antigen (M - Final Assessment/plan: Patient is a 67 year old non-verbal female with a past medical history of anoxic brain injury, COPD ON 4LITER home 02, and seizures who was brought to the hospital from [facility] for hypoxia with labored breathing. #Acute copd exacerbation: on Bipap as needed, pulm. consult; continue nebs. # Hypertensive urgency: switched to IV lopressor since patient is not absorbing the meds through the G-tube # Aspiration Pneumonia: On zosyn r/o Sepis , blood, ua, urine cx , ID on the case, dr Hickey. RSV and inf.A&B neg. #Left Upper extremity Fx: Xray positive for mildly nonhealing fx with some displacement, ortho consult for reevaluation appreciated. # UTI ;NLFGnB on IV zosyn, waiting for final cx and sensitivity. # Seizure hx: changed Keppras to IV since patient is NPO for now, continue rest of the meds po. continue to monitor the patient. continue Bipap xray of Abdomen r/o Ileus pulm. and ortho consult Visit type - Emergency Visit Emergency Visit: Yes ED Registration Date: 06/12/18 Care time: The patient presented to the Emergency Department on the above date and was hospitalized for further evaluation of their emergent condition. - New Patient This patient is new to me today: No - Critical Care Critical Care patient: No - Discharge Referral Referred to [facility] No
[2018-06-15] MEDS ORDERED: METOPROLOL TARTRATE 5 MG/5 ML VIAL IVPB PRN ×2 (09:11→09:49)
--- NOTE | 2018-06-15 11:08 | CONSULT ---
Consult - text type - Consultation Consultation Note: ORTHOPEDIC SURGERY CONSULTATION NOTE Department of Orthopedic Surgery HISTORY OF PRESENT ILLNESS Neli Perkins is a 67 year old non-verbal female with a past medical history significant for anoxic brain injury, COPD, and seizure disorder. She was admitted to [facility] on 06/12/2018 for respiratory distress. The orthopedic service was consulted for evaluation of a left humeral shaft fracture. The date of injury is unknown. She lives at [facility]. As per the nurse at [facility] whom I spoke with on the phone, the patient was transferred there from another home on 04/02/2018 with a brace on her left arm. As per the nurse there is no documentation in the chart as to when the fracture occurred. There is no documentation of orthopedic follow up in her chart. Active Problems Problem Status Category Onset Acute respiratory failure with hypoxia Acute Medical Past Medical History [employer] Other Social History Smoking history Unknown if ever smoked Hx Alcohol Use No Allergies Allergy/AdvReac Type Severity Reaction Status Date / Time No Known Allergies Allergy Verified 05/16/18 06:44 Active Medications Generic Name Dose Route Start Last Admin Trade Name Freq PRN Reason Stop Dose Admin Albuterol/Ipratropium 1 amp 06/12/18 19:56 06/15/18 00:00 Duoneb - NEB 1 amp Q6H PRN Administration SHORTNESS OF BREATH Amlodipine Besylate 2.5 mg 06/13/18 10:00 06/14/18 10:35 Norvasc - GT 2.5 mg DAILY FRANCIE Administration Arformoterol Tartrate 1 amp 06/12/18 20:00 06/15/18 08:47 Brovana (Restricted To Pulmonology/Resp) - NEB 1 amp RBID FRANCIE Administration Ascorbic Acid 500 mg 06/12/18 22:00 06/14/18 21:33 Vitamin C - GT 500 mg BID FRANCIE Administration Atorvastatin Calcium 20 mg 06/13/18 22:00 06/14/18 21:33 Lipitor - GT 20 mg HS FRANCIE Administration Budesonide 1 amp 06/12/18 20:00 06/15/18 08:48 Pulmicort 0.5 Mg Nebulizer - NEB 1 amp RBID FRANCIE Administration Calcium Carbonate/Cholecalciferol 2 tab 06/12/18 22:00 06/14/18 21:33 Os-Jamar 500+D - GT 2 tab HS FRANCIE Administration Enoxaparin Sodium 40 mg 06/13/18 10:00 06/14/18 10:37 Lovenox - SQ 40 mg DAILY FRANCIE Administration Piperacillin Sod/Tazobactam 50 mls @ 100 mls/hr 06/13/18 18:00 06/15/18 02:34 Sod 3.375 gm/ Dextrose IVPB 100 mls/hr Q8H-IV FRANCIE Administration Protocol Lactulose 20 gm 06/13/18 10:00 06/14/18 10:36 Cephulac (Oral Use) GT 20 gm DAILY FRANCIE Administration Levetiracetam 1,500 mg 06/15/18 10:00 Keppra Injection - IVPB BID FRANCIE Metoclopramide HCl 5 mg 06/12/18 22:00 06/14/18 21:32 Reglan Oral Solution - GT 5 mg QID FRANCIE Administration Metoprolol Tartrate 50 mg 06/13/18 10:00 06/14/18 10:36 Lopressor - GT 50 mg DAILY FRANCIE Administration Metoprolol Tartrate 5 mg 06/15/18 09:49 Lopressor Injection - IVPB Q4H PRN HYPERTENSION Multi-Ingredient Ointment 1 applic 06/12/18 22:00 06/15/18 05:38 Zinc Oxide TP 1 applic TID FRANCIE Administration Pantoprazole Sodium 40 mg 06/13/18 10:00 06/14/18 10:37 Protonix Iv IVPUSH 40 mg DAILY FRANCIE Administration Phenobarbital 30 mg 06/12/18 22:00 06/14/18 21:33 Phenobarbital - GT 30 mg BID FRANCIE Administration Scopolamine HBr 1 patch 06/13/18 10:00 06/13/18 09:27 Transderm-Scop - TD 1 patch Q72H FRANCIE Administration Silver Sulfadiazine 1 applic 06/13/18 10:00 06/14/18 10:54 Silvadene - TP 1 applic DAILY FRANCIE Administration Topiramate 200 mg 06/12/18 22:00 06/14/18 21:34 Topamax - GT 200 mg BID FRANCIE Administration Topiramate 25 mg 06/13/18 10:00 06/14/18 10:35 Topamax - NR 25 mg DAILY FRANCIE Administration Valproate Sodium 750 mg 06/12/18 22:00 06/14/18 21:30 Depakene - GT 750 mg BID FRANCIE Administration Vital Signs (last) Temp Pulse Resp BP Pulse Ox 98.4 F 126 H 30 H 174/97 H 94 L 06/15/18 05:44 06/15/18 05:44 06/15/18 05:44 06/15/18 05:44 06/15/18 08:48 Intake and Output 06/13/18 06/14/18 06/15/18 23:59 23:59 23:59 Intake Total 1320 1150 386 Balance 1320 1150 386 Intake: IV 820 1050 336 Lactated Ringers Solution 820 1050 336 1,000 ml @ 42 mls/hr IV ASDIR FRANCIE Rx#:[id number] IVPB 500 100 50 Other: Voiding Method Diaper Diaper # Unmeasured Voids Void 1 2 2 Bowel Movement No No No Weight 113 lb Height 4 ft 6 in Body Mass Index (BMI) 27.2 Laboratory 06/15/18 05:30 06/13/18 06:30 PT with INR 12.00 SEC (9.7-13.0) 06/12/18 16:07 PTT (Actin FS) 31.6 SECONDS (25.2-36.5) 06/12/18 22:15 FAMILY HISTORY Unknown REVIEW OF SYMPTOMS A twelve-point review of systems was performed and was negative except as noted in HPI. PHYSICAL EXAM Right Upper Extremity: Skin warm, dry, and intact. Contractures of the shoulder , elbow and wrist. No tenderness to palpation. Motor and sensory exam unable to be obtained secondary to patient's mental status. 2+ radial pulses; Cap refill brisk. Left Upper Extremity: Skin warm, dry, and intact; no lesions, rashes or ulcers noted. No tenderness to palpation or motion at the fracture site. Limited range of motion of the shoulder and elbow secondary to stiffness. 2+ radial pulses; Cap refill brisk. Lower Extremites: Skin warm, dry, and intact. Severe contractures of bilateral hips, knees and ankles. No tenderness to palpation. Adequate motor and sensory exam unable to be obtained secondary to patient's mental status. No cords or calf tenderness. No significant calf/ankle edema. 2+ DP pulses; Cap refill brisk. IMAGING I personally reviewed radiographs of the left humerus. They demonstrate a healing humeral shaft fracture in adequate alignment. There is bridging callus formation at the fracture site. ASSESSMENT AND PLAN Neli Perkins is a 67 year old non-verbal female with a healing left sided humeral shaft fracture. The date of injury is unknown, however she presented to [facility] on 04/02/18 (about 10.5 weeks ago) with a brace on her left arm. We have reviewed the imaging and clinical findings in detail, as well as their potential implications. - No surgical intervention - Physical therapy: WBAT LUE; Free ROM of the left shoulder as tolerated with the brace. She should continue with the brace for 2 more weeks and then the brace can be discontinued. Elbow, wrist, and finger ROM. - Needs daily skin checks under brace - Pain control - DVT prophylaxis - Appreciate medical management - Decubitus precautions (heel/sacrum) Thank you for involving our team in the care of this patient. Please have patient follow up in our office in 1-2 weeks [phone].
[2018-06-15] MEDS ORDERED: PT OWN MED DRAWER 7, Y5N ONE (11:15)
[2018-06-15] MEDS: METOCLOPRAMIDE HCL 5 MG/5 ML UNIT DOSE CUP GT SCH ×4 (11:28→22:07)
[2018-06-15] MEDS: ENOXAPARIN NA (PORCINE) 40 MG/0.4 ML DISP.SYRIN SQ SCH (11:29)
[2018-06-15] MEDS: levETIRAcetam 500 MG/5 ML INJECTION VIAL IVPB SCH ×2 (11:30→22:07)
[2018-06-15] MEDS: TOPIRAMATE 200 MG TABLET (FP) GT SCH ×2 (11:33→22:07)
[2018-06-15] MEDS: VALPROATE SODIUM 250 MG/5 ML UNIT DOSE CUP GT SCH ×2 (11:33→22:07)
[2018-06-15] MEDS: PHENobarbital 30 MG TABLET GT SCH ×2 (11:34→22:07)
[2018-06-15] MEDS: TOPIRAMATE 25 MG TABLET (FP) NR SCH (11:34)
[2018-06-15] MEDS: amLODIPine BESYLATE 5 MG TABLET (FP) GT SCH (11:34)
[2018-06-15] MEDS: PANTOPRAZOLE SODIUM 40 MG VIAL IVPUSH SCH (11:36)
[2018-06-15] MEDS: SILVER SULFADIAZINE 1% TOP CREAM 50 GM JAR TP SCH (14:29)
--- NOTE | 2018-06-15 18:26 | PN ---
Progress Note, Physician History of Present Illness: Pt seen and examined, events noted. Labs/imaging results reviewed. She was noted to have labored breathing earlier, wbc increased since yesterday. Temp of 99.9F this a.m. Pt currently on BIPAP appears to be breathing comfortably. Abd Xray results noted. - Current Medication List Current Medications: Active Medications Albuterol/Ipratropium (Duoneb -) 1 amp NEB Q6H PRN PRN Reason: SHORTNESS OF BREATH Last Admin: 06/15/18 00:00 Dose: 1 amp Amlodipine Besylate (Norvasc -) 2.5 mg GT DAILY [facility] Last Admin: 06/15/18 11:34 Dose: 2.5 mg Arformoterol Tartrate (Brovana (Restricted To Pulmonology/Resp) -) 1 amp NEB RBID [facility] Last Admin: 06/15/18 08:47 Dose: 1 amp Ascorbic Acid (Vitamin C -) 500 mg GT BID [facility] Last Admin: 06/14/18 21:33 Dose: 500 mg Atorvastatin Calcium (Lipitor -) 20 mg GT HS [facility] Last Admin: 06/14/18 21:33 Dose: 20 mg Budesonide (Pulmicort 0.5 Mg Nebulizer -) 1 amp NEB RBID [facility] Last Admin: 06/15/18 08:48 Dose: 1 amp Calcium Carbonate/Cholecalciferol (Os-Jamar 500+D -) 2 tab GT HS [facility] Last Admin: 06/14/18 21:33 Dose: 2 tab Enoxaparin Sodium (Lovenox -) 40 mg SQ DAILY [facility] Last Admin: 06/15/18 11:29 Dose: 40 mg Piperacillin Sod/Tazobactam (Sod 3.375 gm/ Dextrose) 50 mls @ 100 mls/hr IVPB Q8H-IV [facility]; Protocol Last Admin: 06/15/18 11:28 Dose: 100 mls/hr Lactulose (Cephulac (Oral Use)) 20 gm GT DAILY [facility] Last Admin: 06/14/18 10:36 Dose: 20 gm Levetiracetam (Keppra Injection -) 1,500 mg IVPB BID [facility] Last Admin: 06/15/18 11:30 Dose: 1,500 mg Metoclopramide HCl (Reglan Oral Solution -) 5 mg GT QID [facility] Last Admin: 06/15/18 14:28 Dose: 5 mg Metoprolol Tartrate (Lopressor -) 50 mg GT DAILY [facility]S [facility] BEDS AT [facility] Last Admin: 06/14/18 10:36 Dose: 50 mg Metoprolol Tartrate (Lopressor Injection -) 5 mg IVPB Q4H PRN PRN Reason: HYPERTENSION Multi-Ingredient Ointment (Zinc Oxide) 1 applic TP TID COUNTS INCLUDE 234 BEDS AT THE [facility] Last Admin: 06/15/18 14:31 Dose: 1 applic Pantoprazole Sodium (Protonix Iv) 40 mg IVPUSH DAILY COUNTS INCLUDE 234 BEDS AT THE [facility] Last Admin: 06/15/18 11:36 Dose: 40 mg Phenobarbital (Phenobarbital -) 30 mg GT BID COUNTS INCLUDE 234 BEDS AT THE [facility] Last Admin: 06/15/18 11:34 Dose: 30 mg Scopolamine HBr (Transderm-Scop -) 1 patch TD Q72H COUNTS INCLUDE 234 BEDS AT THE [facility] Last Admin: 06/13/18 09:27 Dose: 1 patch Silver Sulfadiazine (Silvadene -) 1 applic TP DAILY COUNTS INCLUDE 234 BEDS AT THE [facility] Last Admin: 06/15/18 14:29 Dose: 1 applic Topiramate (Topamax -) 200 mg GT BID COUNTS INCLUDE 234 BEDS AT THE [facility] Last Admin: 06/15/18 11:33 Dose: 200 mg Topiramate (Topamax -) 25 mg NR DAILY COUNTS INCLUDE 234 BEDS AT THE [facility] Last Admin: 06/15/18 11:34 Dose: 25 mg Valproate Sodium (Depakene -) 750 mg GT BID COUNTS INCLUDE 234 BEDS AT THE [facility] Last Admin: 06/15/18 11:33 Dose: 750 mg - Objective Vital Signs: Vital Signs Temperature 98.7 F 06/15/18 18:00 Pulse Rate 105 H 06/15/18 18:00 Respiratory Rate 18 06/15/18 18:00 Blood Pressure 155/80 06/15/18 18:00 O2 Sat by Pulse Oximetry (%) 96 06/15/18 16:33 Constitutional: Yes: No Distress, Other (nonverbal) Cardiovascular: Yes: Regular Rate and Rhythm Respiratory: Yes: On BiPap Gastrointestinal: Yes: Normal Bowel Sounds, Soft, Other (peg tube) Neurological: Yes: Other (noncommunicative) Labs: CBC, BMP 06/15/18 05:30 06/13/18 06:30 INR, PTT INR 1.02 (0.83-1.09) 06/12/18 16:07 Microbiology 06/12/18 17:30 Blood - Peripheral Venous Blood Culture - Preliminary NO GROWTH OBTAINED AFTER 72 HOURS, INCUBATION TO CONTINUE FOR 2 DAYS. 06/12/18 17:30 Blood - Peripheral Venous Blood Culture - Preliminary NO GROWTH OBTAINED AFTER 72 HOURS, INCUBATION TO CONTINUE FOR 2 DAYS. 06/12/18 18:49 Urine - Urine Clean Catch Urine Culture - Final Pseudomonas Aeruginosa 06/12/18 19:05 Urine For Antigen Detection Legionella Antigen - Final 06/12/18 19:05 Urine For Antigen Detection Streptococcus pneumoniae Antigen (M - Final - ....Imaging Chest X-ray: Report Reviewed X-ray: Report Reviewed Problem List - Problems (1) Acute respiratory failure with hypoxia Code(s): J96.01 - ACUTE RESPIRATORY FAILURE WITH HYPOXIA (2) Anoxic brain damage Code(s): G93.1 - ANOXIC BRAIN DAMAGE, NOT ELSEWHERE CLASSIFIED (3) Aspiration pneumonia Code(s): J69.0 - PNEUMONITIS DUE TO INHALATION OF FOOD AND VOMIT (4) COPD exacerbation Code(s): J44.1 - CHRONIC OBSTRUCTIVE PULMONARY DISEASE W (ACUTE) EXACERBATION (5) Fracture of left humerus Code(s): S42.302A - UNSP FRACTURE OF SHAFT OF HUMERUS, LEFT ARM, INIT (6) Functional quadriplegia Code(s): R53.2 - FUNCTIONAL QUADRIPLEGIA (7) HLD (hyperlipidemia) Code(s): E78.5 - HYPERLIPIDEMIA, UNSPECIFIED (8) HTN (hypertension) Code(s): I10 - ESSENTIAL (PRIMARY) HYPERTENSION (9) Scoliosis deformity of spine Code(s): M41.9 - SCOLIOSIS, UNSPECIFIED (10) Seizure disorder Code(s): G40.909 - EPILEPSY, UNSP, NOT INTRACTABLE, WITHOUT STATUS EPILEPTICUS (11) Shortness of breath Code(s): R06.02 - SHORTNESS OF BREATH Assessment/Plan PNA - suspected Aspiration UTI Respiratory distress Fever Leukocytosis LUE fracture Anoxic brain injury Functional Quadriplegia HTN HLD Seizure d.o. COPD Pt with respiratory distress earlier, wbc increased, low grade fever, currently comfortable on bipap AXR suggestive of possible obstruction, needs further evaluation Continue Zosyn for now Monitor wbc trend, temps
[2018-06-16] MEDS ORDERED: PIPERACILLIN/TAZOBACTAM 3.375 GM VIAL IVPB ONE ×3 (01:44→17:17)
[2018-06-16] MEDS ORDERED: DEXTROSE 5%-WATER - 50 ML IVPB ONE ×3 (01:44→17:17)
[2018-06-16] MEDS: PIPERACILLIN/TAZOB 3.375 GM 3.375 GM in DEXTROSE 5%-WATER - 50 ML IVPB SCH ×3 (02:45→17:33)
[2018-06-16] MEDS: ZINC OXIDE 20% TOPICAL OINTMENT 30 GM TUBE TP SCH ×3 (06:27→23:06)
[2018-06-16] MEDS: ARFORMOTEROL TARTRATE 15 MCG/2 ML VIAL NEB SCH (07:53)
[2018-06-16] MEDS: BUDESONIDE 0.5 MG/2 ML INH SUSP VIAL NEB SCH (07:54)
--- NOTE | 2018-06-16 10:02 | PN ---
Physical Exam: SUBJECTIVE: Patient seen and examined this AM. Resting comfortably. Has been on NIPPV overnight. No acute overnight events as per nursing. OBJECTIVE: Vital Signs Period Temp Pulse Resp BP Sys/Restrepo Pulse Ox Last 24 Hr 98.3 F-99.9 F 81-105 18-24 148-165/77-96 95-97 GENERAL: NAD HEAD: Microcephaly EYES: PERRL ENT: Moist mucous membranes NECK: No JVD LUNGS: Coarse breath sounds throughout, no wheezes, no crackles HEART: RRR, S1, S2 without murmur ABDOMEN: Soft, mildly distended, + bowel sounds, GTube present on the left without surrounding erythema or drainage EXTREMITIES: All extremities contracted, 1+ right pedal edema NEUROLOGICAL: Unable to assess SKIN: Warm, Dry Microbiology 06/12/18 17:30 Blood - Peripheral Venous Blood Culture - Preliminary NO GROWTH OBTAINED AFTER 72 HOURS, INCUBATION TO CONTINUE FOR 2 DAYS. 06/12/18 17:30 Blood - Peripheral Venous Blood Culture - Preliminary NO GROWTH OBTAINED AFTER 72 HOURS, INCUBATION TO CONTINUE FOR 2 DAYS. 06/12/18 18:49 Urine - Urine Clean Catch Urine Culture - Final Pseudomonas Aeruginosa 06/12/18 19:05 Urine For Antigen Detection Legionella Antigen - Final 06/12/18 19:05 Urine For Antigen Detection Streptococcus pneumoniae Antigen (M - Final Active Medications Albuterol/Ipratropium (Duoneb -) 1 amp NEB Q6H PRN PRN Reason: SHORTNESS OF BREATH Last Admin: 06/15/18 00:00 Dose: 1 amp Amlodipine Besylate (Norvasc -) 2.5 mg GT DAILY [facility] Last Admin: 06/15/18 11:34 Dose: 2.5 mg Arformoterol Tartrate (Brovana (Restricted To Pulmonology/Resp) -) 1 amp NEB RBID [facility] Last Admin: 06/16/18 07:53 Dose: 1 amp Ascorbic Acid (Vitamin C -) 500 mg GT BID [facility] Last Admin: 06/14/18 21:33 Dose: 500 mg Atorvastatin Calcium (Lipitor -) 20 mg GT HS [facility] Last Admin: 06/14/18 21:33 Dose: 20 mg Budesonide (Pulmicort 0.5 Mg Nebulizer -) 1 amp NEB RBID [facility] Last Admin: 06/16/18 07:54 Dose: 1 amp Calcium Carbonate/Cholecalciferol (Os-Jamar 500+D -) 2 tab GT HS [facility] Last Admin: 06/14/18 21:33 Dose: 2 tab Enoxaparin Sodium (Lovenox -) 40 mg SQ DAILY [facility] Last Admin: 06/15/18 11:29 Dose: 40 mg Piperacillin Sod/Tazobactam (Sod 3.375 gm/ Dextrose) 50 mls @ 100 mls/hr IVPB Q8H-IV [facility]; Protocol Last Admin: 06/16/18 02:45 Dose: 100 mls/hr Lactulose (Cephulac (Oral Use)) 20 gm GT DAILY [facility] Last Admin: 06/14/18 10:36 Dose: 20 gm Levetiracetam (Keppra Injection -) 1,500 mg IVPB BID [facility] Last Admin: 06/15/18 22:07 Dose: 1,500 mg Metoclopramide HCl (Reglan Oral Solution -) 5 mg GT QID [facility] Last Admin: 06/15/18 22:07 Dose: 5 mg Metoprolol Tartrate (Lopressor -) 50 mg GT DAILY [facility] Last Admin: 06/14/18 10:36 Dose: 50 mg Metoprolol Tartrate (Lopressor Injection -) 5 mg IVPB Q4H PRN PRN Reason: HYPERTENSION Multi-Ingredient Ointment (Zinc Oxide) 1 applic TP TID [facility] Last Admin: 06/16/18 06:27 Dose: 1 applic Pantoprazole Sodium (Protonix Iv) 40 mg IVPUSH DAILY [facility] Last Admin: 06/15/18 11:36 Dose: 40 mg Phenobarbital (Phenobarbital -) 30 mg GT BID [facility] Last Admin: 06/15/18 22:07 Dose: 30 mg Scopolamine HBr (Transderm-Scop -) 1 patch TD Q72H [facility] Last Admin: 06/13/18 09:27 Dose: 1 patch Silver Sulfadiazine (Silvadene -) 1 applic TP DAILY [facility] Last Admin: 06/15/18 14:29 Dose: 1 applic Topiramate (Topamax -) 200 mg GT BID [facility] Last Admin: 06/15/18 22:07 Dose: 200 mg Topiramate (Topamax -) 25 mg NR DAILY [facility] Last Admin: 06/15/18 11:34 Dose: 25 mg Valproate Sodium (Depakene -) 750 mg GT BID [facility] Last Admin: 06/15/18 22:07 Dose: 750 mg IMAGING: -Left Humerus: 2 views of the left humerus reveal a healing fracture deformity of the mid shaft of the left humerus. There is some displacement at the fracture site as shown in one view. The imaging is available for review. -CXR (06/12): No significant interval change or gross acute lung disease is present. -CXR (06/15): Single AP view of the chest has been submitted. Since 06/12/2018, again noted is a scoliosis with convexity to the left, prominent mediastinum and some chronic pleural reaction and atelectasis at the left base. There is elevated right hemidiaphragm with distended bowel. Correlation recommended. -KUB: A single view the abdomen has been obtained. There is motion artifact, G- tube, abdominal distention, motion artifact, degenerative changes and a prior left hip stabilization with hardware. Distended bowel could represent an early obstructive process. For more complete evaluation, better imaging with CT may be of help ASSESSMENT/PLAN: 67 y/o non-verbal Female with PMHx of anoxic brain injury, COPD (on 4L at home) , seizures presented with respiratory distress and found to be in Sepsis #Sepsis -Likely due to Aspiration PNA -Urine cx--Pseudomonas -Piperacillin/Tazobactam 3.375 Q6H -ID (Dr. Hickey) consulted, appreciate rec's -Hold tube feeds in the setting of Aspiration -Keep HOB elevated -Aspiration precautions #COPD -Check ABG -Continue NIPPV (12/08/19/40%) -Albuterol/Ipratropium, Arformoterol, Budesonide -Supplemental O2 to maintain SpO2 88-92% -Pulm consulted #Chronic L arm fracture -Continue to use brace -Ortho (Dr. Garcia) consulted, appreciate rec's #Hypertension -IV Metoprolol Tartrate 5mg Q4H PRN added given episodes of SBP > 170 -Continue Metoprolol Tartrate 50 mg GT Daily, Amlodipine 2.5mg GT Daily, Budesonide 1 amp NEB BID #HLD -Atorvastatin 20mg GT HS #GERD -Metoclopramide, Pantoprazole, Lactulose #Seizures -Levetiracetam, Valproate, Topiramate, Phenobarbital #FEN -No standing fluids -Monitor lytes -NPO #PPx -Lovenox Visit type - Emergency Visit Emergency Visit: Yes ED Registration Date: 06/12/18 Care time: The patient presented to the Emergency Department on the above date and was hospitalized for further evaluation of their emergent condition. - New Patient This patient is new to me today: No - Critical Care Critical Care patient: No - Discharge Referral Referred to [facility] No
[2018-06-16] MEDS: METOCLOPRAMIDE HCL 5 MG/5 ML UNIT DOSE CUP GT SCH ×4 (10:43→23:05)
[2018-06-16] MEDS: levETIRAcetam 500 MG/5 ML INJECTION VIAL IVPB SCH ×2 (10:43→23:06)
[2018-06-16] MEDS: TOPIRAMATE 25 MG TABLET (FP) NR SCH (10:44)
[2018-06-16] MEDS: VALPROATE SODIUM 250 MG/5 ML UNIT DOSE CUP GT SCH ×2 (10:44→23:05)
[2018-06-16] MEDS: TOPIRAMATE 200 MG TABLET (FP) GT SCH ×2 (10:44→23:06)
[2018-06-16] MEDS: ENOXAPARIN NA (PORCINE) 40 MG/0.4 ML DISP.SYRIN SQ SCH (10:44)
[2018-06-16] MEDS: PHENobarbital 30 MG TABLET GT SCH ×2 (10:45→23:05)
[2018-06-16] MEDS: amLODIPine BESYLATE 5 MG TABLET (FP) GT SCH (10:45)
[2018-06-16] MEDS: SCOPOLAMINE HYDROBROMIDE 1 PATCH PATCH.TD72 TD SCH (10:45)
[2018-06-16] MEDS: SILVER SULFADIAZINE 1% TOP CREAM 50 GM JAR TP SCH (10:46)
[2018-06-16] MEDS: PANTOPRAZOLE SODIUM 40 MG VIAL IVPUSH SCH (10:46)
--- NOTE | 2018-06-16 11:50 | CON.PULM ---
Consult Consult Specialty:: PULMONARY Referred by:: Dr Jeong Reason for Consultation:: shortness of breath - History of Present Illness Chief Complaint: shortness of breath History of Present Illness: 67yo female with h/o COPD, anoxic brain injury, seizure disorder, chronic hypoxic respiratory failre, who was transferred from [place] for shortness of breath and hypoxia. Pt nonverbal, unable to provide further history. Placed on BiPAP for increased respiratory distress. She does have thick secretions per nursing. No fevers recorded but with initial leukocytosis. CXR without acute findings. - History Source History Provided By: Medical Record Limitations to Obtaining History: Clinical Condition - Past Medical History [employer]: Yes: Other (ANOXIC BRAIN INJURY) - Alcohol/Substance Use Hx Alcohol Use: No - Smoking History Smoking history: Unknown if ever smoked Have you smoked in the past 12 months: No Home Medications - Allergies Allergies/Adverse Reactions: Allergies Allergy/AdvReac Type Severity Reaction Status Date / Time No Known Allergies Allergy Verified 05/16/18 06:44 - Home Medications Home Medications: Ambulatory Orders Alendronate Sodium [Binosto] 70 mg GT WEEKLY 06/12/18 Amlodipine Besylate 2.5 mg GT DAILY 06/12/18 Arformoterol Tartrate [Brovana] 1 vial NEB BID 06/12/18 Ascorbic Acid 500 mg GT BID 06/12/18 Budesonide [Pulmicort 0.5 mg Nebulizer -] 1 vial NEB BID 06/12/18 Calcium Carbonate/Vitamin D3 [Oystercal-D 500 mg-400 Unit Tb] 2 each GT HS 06/12 Calcium Carbonate/Vitamin D3 [Oystercal-D 500 mg-400 Unit Tb] 2 tablet GT HS 12/21 Ipratropium/Albuterol Sulfate [Iprat-Albut 0.5-3(2.5) mg/3 ml] 1 vial NEB QID Lactulose 30 ml GT DAILY 06/12/18 Metoclopramide HCl 5 mg GT QID 06/12/18 Metoprolol Tartrate 50 mg GT DAILY 06/12/18 Omeprazole 20 mg GT DAILY 06/12/18 Phenobarbital 32.4 mg GT BID 06/12/18 Protein Supplement [Promod] 30 ml GT DAILY 06/12/18 Scopolamine 1 each TD Q72H 06/12/18 Scopolamine [Transderm-Scop] 1 each TD Q72H 06/12/18 Silver Sulfadiazine [Silvadene] 20 gm TP DAILY 06/12/18 Simvastatin 40 mg GT DAILY 06/12/18 Topiramate 25 mg GT DAILY 06/12/18 Topiramate 200 mg GT BID 06/12/18 Valproate Sodium [Depakene] 15 ml GT BID 06/12/18 Zinc Oxide 1 applic TP TID 06/12/18 levETIRAcetam [levETIRAcetam ORAL SUSPENSION] 15 ml GT BID 06/12/18 Review of Systems Unable to obtain ROS, reason: pt nonverbal Physical Exam Vital Sings: Vital Signs Temperature 98.3 F 06/16/18 02:00 Pulse Rate 93 H 06/16/18 06:57 Respiratory Rate 22 H 06/16/18 06:00 Blood Pressure 152/82 06/16/18 06:00 O2 Sat by Pulse Oximetry (%) 97 06/16/18 07:53 Constitutional: Yes: Anxious, Mild Distress Eyes: Yes: Conjunctiva Clear, EOM Intact HENT: Yes: Atraumatic, Normocephalic Neck: Yes: Supple, Trachea Midline Cardiovascular: Yes: Regular Rate and Rhythm Respiratory: Yes: Rhonchi (scattered) ...Clubbing: No Gastrointestinal: Yes: Normal Bowel Sounds, Soft. No: Tenderness Edema: No Labs: CBC, BMP 06/15/18 05:30 06/13/18 06:30 ABG Results ABG pH 7.38 (7.35-7.45) 06/15/18 05:25 ABG pCO2 at Pt Temp 64.7 mmHg (35-45) H 06/15/18 05:25 ABG pO2 at Pt Temp 72.2 mmHg (80-105) L 06/15/18 05:25 ABG HCO3 37.6 mmol/L (22-27) H 06/15/18 05:25 ABG O2 Sat (Measured) 94.6 % (95-98) L 06/15/18 05:25 ABG O2 Content 16.4 % vol (15-22) 06/15/18 05:25 ABG Base Excess 10.5 meq/l (-2-2) H 06/15/18 05:25 Imaging - Results Chest X-ray: Report Reviewed, Image Reviewed (elevated R hemidiaphragm) Problem List - Problems (1) Acute and chronic respiratory failure with hypoxia Code(s): J96.21 - ACUTE AND CHRONIC RESPIRATORY FAILURE WITH HYPOXIA (2) COPD exacerbation Code(s): J44.1 - CHRONIC OBSTRUCTIVE PULMONARY DISEASE W (ACUTE) EXACERBATION (3) Functional quadriplegia Code(s): R53.2 - FUNCTIONAL QUADRIPLEGIA (4) HLD (hyperlipidemia) Code(s): E78.5 - HYPERLIPIDEMIA, UNSPECIFIED (5) HTN (hypertension) Code(s): I10 - ESSENTIAL (PRIMARY) HYPERTENSION Assessment/Plan Acute on Chronic Hypoxic Respiratory Failure r/o Pneumonia Acute COPD Exacerbation Anoxic Brain Injury Seizure Disorder - continue antibiotics - f/u cultures - adjusted BiPAP settings - will add medrol - inhaled bronchodilators standing and PRN - O2 to keep SpO2 >90% - aspiration precautions - DVT prophylaxis Thank you for this consult Arsenio Gann MD
[2018-06-16] MEDS ORDERED: ALBUTEROL SO4 0.083% IH SOL 2.5 MG/3 ML VIAL.NEB. NEB PRN (11:52)
[2018-06-16 12:40] LABS: ARTERIAL BLD GAS O2 SATURATION 93.8 % (95-98); ARTERIAL BLOOD GAS BASE EXCESS 10.3 meq/l (-2-2); ARTERIAL BLOOD GAS PCO2 60.3 mmHg (35-45); ARTERIAL BLOOD GAS PO2 70.8 mmHg (80-105)
[2018-06-16 12:42] LABS: ALLENS TEST POSITIVE
[2018-06-16] MEDS: ALBUTEROL SO4 2.5/IPRATROPIUM 0.5 INH SOL 3 ML VIAL.NEB. NEB SCH ×3 (12:50→20:05)
[2018-06-16] MEDS: methylPREDNISolone NA SUCC 40 MG/1 ML VIAL IVPUSH SCH ×2 (13:15→17:33)
--- NOTE | 2018-06-16 14:42 | PN ---
Teaching Attending Note Name of Resident: Melania Marin ATTENDING PHYSICIAN STATEMENT I saw and evaluated the patient. I reviewed the resident's note and discussed the case with the resident. I agree with the resident's findings and plan as documented. SUBJECTIVE: Patient continues to be on Bipap, no labored breathing noted. OBJECTIVE: Vital Signs Temperature 98.3 F 06/16/18 02:00 Pulse Rate 93 H 06/16/18 06:57 Respiratory Rate 22 H 06/16/18 06:00 Blood Pressure 152/82 06/16/18 06:00 O2 Sat by Pulse Oximetry (%) 97 06/16/18 12:20 GENERAL: The patient is non-verbal, lying in bed on Bipap. HEAD: Normal with no signs of trauma. EYES: PERRL, sclera anicteric, conjunctiva clear. ENT: Ears normal, on Bipap now , NECK: Trachea midline, supple. LUNGS: decreased BS BL , no wheeze, no crackles, mild accessory muscle use. HEART: RRR, S1, S2 without murmur, rub or gallop. ABDOMEN: Soft, nontender, nondistended, normoactive bowel sounds, no guarding, no rebound, positive for G tube. EXTREMITIES: 2+ pulses, warm, well-perfused, no edema. left humural fx, in a cast. NEUROLOGICAL: Cranial nerves II through XII grossly intact. PSYCH: non verbal, cannot be accessed , does not follow any commands SKIN: Warm, dry, normal turgor, no rashes or lesions appreciated CBCD WBC 14.7 K/mm3 (4.0-10.0) H 06/15/18 05:30 RBC 4.14 M/mm3 (3.60-5.2) 06/15/18 05:30 Hgb 12.6 GM/dL (10.7-15.3) 06/15/18 05:30 Hct 38.4 % (32.4-45.2) 06/15/18 05:30 MCV 92.8 fl (80-96) 06/15/18 05:30 MCHC 32.7 g/dl (32.0-36.0) 06/15/18 05:30 RDW 14.2 % (11.6-15.6) 06/15/18 05:30 Plt Count 327 K/MM3 (134-434) D 06/15/18 05:30 MPV 7.8 fl (7.5-11.1) 06/15/18 05:30 CMP Sodium 139 mmol/L (136-145) 06/13/18 06:30 Potassium 3.6 mmol/L (3.5-5.1) 06/13/18 06:30 Chloride 101 mmol/L (98-107) 06/13/18 06:30 Carbon Dioxide 33 mmol/L (21-32) H 06/13/18 06:30 Anion Gap 5 MMOL/L (8-16) L 06/13/18 06:30 BUN 8 mg/dL (7-18) 06/13/18 06:30 Creatinine < 0.2 mg/dL (0.55-1.3) L 06/13/18 06:30 Creat Clearance w eGFR 356.50 (>60) 06/13/18 06:30 Random Glucose 80 mg/dL (74-106) 06/13/18 06:30 Calcium 8.4 mg/dL (8.5-10.1) L 06/13/18 06:30 Total Bilirubin 0.2 mg/dL (0.2-1) 06/12/18 15:34 AST 21 U/L (15-37) 06/12/18 15:34 ALT 23 U/L (13-61) 06/12/18 15:34 Alkaline Phosphatase 326 U/L (45-117) H 06/12/18 15:34 Total Protein 7.9 g/dl (6.4-8.2) 06/12/18 15:34 Albumin 3.0 g/dl (3.4-5.0) L 06/12/18 15:34 Current Medications Generic Name Dose Route Start Last Admin Trade Name Freq PRN Reason Stop Dose Admin Albuterol Sulfate 1 amp 06/16/18 11:52 Ventolin 0.083% Nebulizer Soln - NEB Q4H PRN SHORT OF BREATH/WHEEZING Albuterol/Ipratropium 1 amp 06/16/18 12:00 06/16/18 12:50 Duoneb - NEB 1 amp RQID [facility] Administration Amlodipine Besylate 2.5 mg 06/13/18 10:00 06/16/18 10:45 Norvasc - GT 2.5 mg DAILY [facility] Administration Ascorbic Acid 500 mg 06/12/18 22:00 06/14/18 21:33 Vitamin C - GT 500 mg BID [facility] Administration Atorvastatin Calcium 20 mg 06/13/18 22:00 06/14/18 21:33 Lipitor - GT 20 mg HS [facility] Administration Calcium Carbonate/Cholecalciferol 2 tab 06/12/18 22:00 06/14/18 21:33 Os-Jamar 500+D - GT 2 tab HS [facility] Administration Enoxaparin Sodium 40 mg 06/13/18 10:00 06/16/18 10:44 Lovenox - SQ 40 mg DAILY [facility] Administration Piperacillin Sod/Tazobactam 50 mls @ 100 mls/hr 06/13/18 18:00 06/16/18 11:42 Sod 3.375 gm/ Dextrose IVPB 100 mls/hr Q8H-IV [facility] Administration Protocol Lactulose 20 gm 06/13/18 10:00 06/14/18 10:36 Cephulac (Oral Use) GT 20 gm DAILY [facility] Administration Levetiracetam 1,500 mg 06/15/18 10:00 06/16/18 10:43 Keppra Injection - IVPB 1,500 mg BID [facility] Administration Methylprednisolone Sodium Succinate 40 mg 06/16/18 12:00 06/16/18 13:15 Solu-Medrol - IVPUSH 40 mg Q8H-IV [facility] Administration Metoclopramide HCl 5 mg 06/12/18 22:00 06/16/18 13:15 Reglan Oral Solution - GT 5 mg QID [facility] Administration Metoprolol Tartrate 50 mg 06/13/18 10:00 06/14/18 10:36 Lopressor - GT 50 mg DAILY [facility] Administration Metoprolol Tartrate 5 mg 06/15/18 09:49 Lopressor Injection - IVPB Q4H PRN HYPERTENSION Multi-Ingredient Ointment 1 applic 06/12/18 22:00 06/16/18 13:15 Zinc Oxide TP 1 applic TID [facility] Administration Pantoprazole Sodium 40 mg 06/13/18 10:00 06/16/18 10:46 Protonix Iv IVPUSH 40 mg DAILY [facility] Administration Phenobarbital 30 mg 06/12/18 22:00 06/16/18 10:45 Phenobarbital - GT 30 mg BID [facility] Administration Scopolamine HBr 1 patch 06/13/18 10:00 06/16/18 10:45 Transderm-Scop - TD 1 patch Q72H [facility] Administration Silver Sulfadiazine 1 applic 06/13/18 10:00 06/16/18 10:46 Silvadene - TP 1 applic DAILY [facility] Administration Topiramate 200 mg 06/12/18 22:00 06/16/18 10:44 Topamax - GT 200 mg BID [facility] Administration Topiramate 25 mg 06/13/18 10:00 06/16/18 10:44 Topamax - NR 25 mg DAILY [facility] Administration Valproate Sodium 750 mg 06/12/18 22:00 06/16/18 10:44 Depakene - GT 750 mg BID [facility] Administration Home Medications Medication Instructions Recorded Alendronate Sodium [Binosto] 70 mg GT WEEKLY 06/12/18 Amlodipine Besylate 2.5 mg GT DAILY 06/12/18 Arformoterol Tartrate [Brovana] 1 vial NEB BID 06/12/18 Ascorbic Acid 500 mg GT BID 06/12/18 Budesonide [Pulmicort 0.5 mg 1 vial NEB BID 06/12/18 Nebulizer -] Calcium Carbonate/Vitamin D3 2 each GT HS 06/12/18 [Oystercal-D 500 mg-400 Unit Tb] Calcium Carbonate/Vitamin D3 2 tablet GT HS 06/12/18 [Oystercal-D 500 mg-400 Unit Tb] Ipratropium/Albuterol Sulfate 1 vial NEB QID 06/12/18 [Iprat-Albut 0.5-3(2.5) mg/3 ml] Lactulose 30 ml GT DAILY 06/12/18 Metoclopramide HCl 5 mg GT QID 06/12/18 Metoprolol Tartrate 50 mg GT DAILY 06/12/18 Omeprazole 20 mg GT DAILY 06/12/18 Phenobarbital 32.4 mg GT BID 06/12/18 Protein Supplement [Promod] 30 ml GT DAILY 06/12/18 Scopolamine 1 each TD Q72H 06/12/18 Scopolamine [Transderm-Scop] 1 each TD Q72H 06/12/18 Silver Sulfadiazine [Silvadene] 20 gm TP DAILY 06/12/18 Simvastatin 40 mg GT DAILY 06/12/18 Topiramate 25 mg GT DAILY 06/12/18 Topiramate 200 mg GT BID 06/12/18 Valproate Sodium [Depakene] 15 ml GT BID 06/12/18 Zinc Oxide 1 applic TP TID 06/12/18 levETIRAcetam [levETIRAcetam ORAL 15 ml GT BID 06/12/18 SUSPENSION] ABG Results ABG pH 7.40 (7.35-7.45) 06/16/18 12:40 ABG pCO2 at Pt Temp 60.3 mmHg (35-45) H 06/16/18 12:40 ABG pO2 at Pt Temp 70.8 mmHg (80-105) L 06/16/18 12:40 ABG HCO3 36.8 mmol/L (22-27) H 06/16/18 12:40 ABG O2 Sat (Measured) 93.8 % (95-98) L 06/16/18 12:40 ABG O2 Content 15.1 % vol (15-22) 06/16/18 12:40 ABG Base Excess 10.3 meq/l (-2-2) H 06/16/18 12:40 Microbiology 06/12/18 17:30 Blood - Peripheral Venous Blood Culture - Preliminary NO GROWTH OBTAINED AFTER 72 HOURS, INCUBATION TO CONTINUE FOR 2 DAYS. 06/12/18 17:30 Blood - Peripheral Venous Blood Culture - Preliminary NO GROWTH OBTAINED AFTER 72 HOURS, INCUBATION TO CONTINUE FOR 2 DAYS. 06/12/18 18:49 Urine - Urine Clean Catch Urine Culture - Final Pseudomonas Aeruginosa 06/12/18 19:05 Urine For Antigen Detection Legionella Antigen - Final 06/12/18 19:05 Urine For Antigen Detection Streptococcus pneumoniae Antigen (M - Final ASSESSMENT AND PLAN: Patient is a 67 year old non-verbal female with a past medical history of anoxic brain injury, [facility], and seizures who was brought to the hospital from [facility] for hypoxia with labored breathing. #Acute hypoxic hypercapnic copd exacerbation: on Bipap as needed, setting was adjusted as per pulm., continue nebs. # Hypertensive urgency: better controlled , switched to IV lopressor since patient is not absorbing the meds through the G-tube # Aspiration Pneumonia: On zosyn , cx as above urine cx as above , ID on the case, dr Hickey. RSV and inf.A&B neg. # Acute UTI ; growing psudomonas sensitive to to IV zosyn. #Left Upper extremity Fx: Xray positive for mildly nonhealing fx with some displacement, ortho consult appreciated . # Seizure hx: changed Keppras to IV since patient is NPO for now, continue rest of the meds po. continue to monitor the patient. continue Bipap xray of Abdomen noted pulm. and ortho consult appreciated
--- NOTE | 2018-06-16 16:00 | PN ---
Progress Note, Physician History of Present Illness: Pt afebrile since yesterday. No acute distress currently, on BIPAP. - Current Medication List Current Medications: Active Medications Albuterol Sulfate (Ventolin 0.083% Nebulizer Soln -) 1 amp NEB Q4H PRN PRN Reason: SHORT OF BREATH/WHEEZING Albuterol/Ipratropium (Duoneb -) 1 amp NEB RQID [facility] Last Admin: 06/16/18 12:50 Dose: 1 amp Amlodipine Besylate (Norvasc -) 2.5 mg GT DAILY [facility] Last Admin: 06/16/18 10:45 Dose: 2.5 mg Ascorbic Acid (Vitamin C -) 500 mg GT BID [facility] Last Admin: 06/14/18 21:33 Dose: 500 mg Atorvastatin Calcium (Lipitor -) 20 mg GT HS [facility] Last Admin: 06/14/18 21:33 Dose: 20 mg Calcium Carbonate/Cholecalciferol (Os-Jamar 500+D -) 2 tab GT HS [facility] Last Admin: 06/14/18 21:33 Dose: 2 tab Enoxaparin Sodium (Lovenox -) 40 mg SQ DAILY [facility] Last Admin: 06/16/18 10:44 Dose: 40 mg Piperacillin Sod/Tazobactam (Sod 3.375 gm/ Dextrose) 50 mls @ 100 mls/hr IVPB Q8H-IV [facility]; Protocol Last Admin: 06/16/18 11:42 Dose: 100 mls/hr Lactulose (Cephulac (Oral Use)) 20 gm GT DAILY [facility] Last Admin: 06/14/18 10:36 Dose: 20 gm Levetiracetam (Keppra Injection -) 1,500 mg IVPB BID [facility] Last Admin: 06/16/18 10:43 Dose: 1,500 mg Methylprednisolone Sodium Succinate (Solu-Medrol -) 40 mg IVPUSH Q8H-IV [facility] Last Admin: 06/16/18 13:15 Dose: 40 mg Metoclopramide HCl (Reglan Oral Solution -) 5 mg GT QID [facility] Last Admin: 06/16/18 13:15 Dose: 5 mg Metoprolol Tartrate (Lopressor -) 50 mg GT DAILY [facility] Last Admin: 06/14/18 10:36 Dose: 50 mg Metoprolol Tartrate (Lopressor Injection -) 5 mg IVPB Q4H PRN PRN Reason: HYPERTENSION Multi-Ingredient Ointment (Zinc Oxide) 1 applic TP TID [facility] Last Admin: 06/16/18 13:15 Dose: 1 applic Pantoprazole Sodium (Protonix Iv) 40 mg IVPUSH DAILY [facility] Last Admin: 06/16/18 10:46 Dose: 40 mg Phenobarbital (Phenobarbital -) 30 mg GT BID [facility] Last Admin: 06/16/18 10:45 Dose: 30 mg Scopolamine HBr (Transderm-Scop -) 1 patch TD Q72H [facility] Last Admin: 06/16/18 10:45 Dose: 1 patch Silver Sulfadiazine (Silvadene -) 1 applic TP DAILY [facility] Last Admin: 06/16/18 10:46 Dose: 1 applic Topiramate (Topamax -) 200 mg GT BID [facility] Last Admin: 06/16/18 10:44 Dose: 200 mg Topiramate (Topamax -) 25 mg NR DAILY [facility] Last Admin: 06/16/18 10:44 Dose: 25 mg Valproate Sodium (Depakene -) 750 mg GT BID [facility] Last Admin: 06/16/18 10:44 Dose: 750 mg - Objective Vital Signs: Vital Signs Temperature 98.7 F 06/16/18 14:49 Pulse Rate 97 H 06/16/18 14:49 Respiratory Rate 22 H 06/16/18 14:49 Blood Pressure 146/76 06/16/18 14:49 O2 Sat by Pulse Oximetry (%) 97 06/16/18 12:20 Constitutional: Yes: No Distress Cardiovascular: Yes: Regular Rate and Rhythm Respiratory: Yes: Other (poor inspiratory effort) Gastrointestinal: Yes: Normal Bowel Sounds, Soft, Distention Extremities: Yes: Other Integumentary: Yes: WNL Labs: CBC, BMP 06/15/18 05:30 06/13/18 06:30 INR, PTT INR 1.02 (0.83-1.09) 06/12/18 16:07 Microbiology 06/12/18 17:30 Blood - Peripheral Venous Blood Culture - Preliminary NO GROWTH OBTAINED AFTER 72 HOURS, INCUBATION TO CONTINUE FOR 2 DAYS. 06/12/18 17:30 Blood - Peripheral Venous Blood Culture - Preliminary NO GROWTH OBTAINED AFTER 72 HOURS, INCUBATION TO CONTINUE FOR 2 DAYS. 06/12/18 18:49 Urine - Urine Clean Catch Urine Culture - Final Pseudomonas Aeruginosa 06/12/18 19:05 Urine For Antigen Detection Legionella Antigen - Final 06/12/18 19:05 Urine For Antigen Detection Streptococcus pneumoniae Antigen (M - Final Problem List - Problems (1) Acute respiratory failure with hypoxia Code(s): J96.01 - ACUTE RESPIRATORY FAILURE WITH HYPOXIA (2) Anoxic brain damage Code(s): G93.1 - ANOXIC BRAIN DAMAGE, NOT ELSEWHERE CLASSIFIED (3) Aspiration pneumonia Code(s): J69.0 - PNEUMONITIS DUE TO INHALATION OF FOOD AND VOMIT (4) COPD exacerbation Code(s): J44.1 - CHRONIC OBSTRUCTIVE PULMONARY DISEASE W (ACUTE) EXACERBATION (5) Fracture of left humerus Code(s): S42.302A - UNSP FRACTURE OF SHAFT OF HUMERUS, LEFT ARM, INIT (6) Functional quadriplegia Code(s): R53.2 - FUNCTIONAL QUADRIPLEGIA (7) HLD (hyperlipidemia) Code(s): E78.5 - HYPERLIPIDEMIA, UNSPECIFIED (8) HTN (hypertension) Code(s): I10 - ESSENTIAL (PRIMARY) HYPERTENSION (9) Scoliosis deformity of spine Code(s): M41.9 - SCOLIOSIS, UNSPECIFIED (10) Seizure disorder Code(s): G40.909 - EPILEPSY, UNSP, NOT INTRACTABLE, WITHOUT STATUS EPILEPTICUS (11) Shortness of breath Code(s): R06.02 - SHORTNESS OF BREATH Assessment/Plan PNA - suspected Aspiration UTI Respiratory distress - on BIPAP Fever Leukocytosis LUE fracture Anoxic brain injury Functional Quadriplegia HTN HLD Seizure d.o. COPD Pt afebrile since yesterday CBC not done today, ordered, monitor wbc trend Continue Zosyn for now Pulmonary eval noted Monitor wbc trend, temps
[2018-06-16] MEDS ORDERED: PT OWN MED DRAWER 7, Y5N ONE (22:35)
[2018-06-17] MEDS ORDERED: PIPERACILLIN/TAZOBACTAM 3.375 GM VIAL IVPB ONE ×3 (00:46→18:09)
[2018-06-17] MEDS ORDERED: DEXTROSE 5%-WATER - 50 ML IVPB ONE ×3 (00:46→18:09)
[2018-06-17] MEDS: PIPERACILLIN/TAZOB 3.375 GM 3.375 GM in DEXTROSE 5%-WATER - 50 ML IVPB SCH ×3 (02:50→18:24)
[2018-06-17] MEDS: methylPREDNISolone NA SUCC 40 MG/1 ML VIAL IVPUSH SCH ×3 (02:50→18:24)
[2018-06-17] MEDS: ZINC OXIDE 20% TOPICAL OINTMENT 30 GM TUBE TP SCH ×2 (05:22→14:13)
[2018-06-17 06:56] LABS: BASO % 0.1 % (0-2.0); HEMATOCRIT 36.7 % (32.4-45.2); HEMOGLOBIN 12.3 GM/dL (10.7-15.3); LYMPH % 8.5 % (8-40); MCH 30.9 pg (25.7-33.7); MCHC 33.6 g/dl (32.0-36.0); MEAN CELL VOLUME 92.1 fl (80-96); MEAN PLT VOLUME 7.6 fl (7.5-11.1); NEUT % 89.4 % (42.8-82.8); PLATELET COUNT 278 K/MM3 (134-434); RBC 3.99 M/mm3 (3.60-5.2); RDW 13.6 % (11.6-15.6); WHITE BLOOD COUNT 7.3 K/mm3 (4.0-10.0)
[2018-06-17] MEDS: ALBUTEROL SO4 2.5/IPRATROPIUM 0.5 INH SOL 3 ML VIAL.NEB. NEB SCH ×4 (07:40→20:50)
--- NOTE | 2018-06-17 08:55 | PN ---
Physical Exam: SUBJECTIVE: Patient seen and examined this AM. Resting comfortably; tolerated NIPPV overnight. No acute overnight events as per nursing. OBJECTIVE: Vital Signs Period Temp Pulse Resp BP Sys/Restrepo Pulse Ox Last 24 Hr 98.3 F-98.7 F 88-102 12-22 140-157/74-86 94-100 GENERAL: NAD HEAD: Microcephaly EYES: PERRL ENT: Moist mucous membranes NECK: No JVD LUNGS: Coarse breath sounds throughout, no wheezes, no crackles HEART: RRR, S1, S2 without murmur ABDOMEN: Soft, mildly distended, + bowel sounds, GTube present on the left without surrounding erythema or drainage EXTREMITIES: All extremities contracted, 1+ right pedal edema NEUROLOGICAL: Awake SKIN: Warm, Dry Laboratory Results - last 24 hr 06/16/18 06/17/18 12:40 06:00 WBC 7.3 RBC 3.99 Hgb 12.3 Hct 36.7 MCV 92.1 MCH 30.9 MCHC 33.6 RDW 13.6 Plt Count 278 MPV 7.6 Absolute Neuts (auto) 6.5 Neutrophils % 89.4 H Lymphocytes % 8.5 D Monocytes % 2.0 L D Eosinophils % 0.0 Basophils % 0.1 Nucleated RBC % 0 Puncture Site Left radial ABG pH 7.40 ABG pCO2 at Pt Temp 60.3 H ABG pO2 at Pt Temp 70.8 L ABG HCO3 36.8 H ABG O2 Sat (Measured) 93.8 L ABG O2 Content 15.1 ABG Base Excess 10.3 H Scott Test Positive Oxygen Flow Rate 40 PEEP 5.0 Microbiology 06/12/18 17:30 Blood - Peripheral Venous Blood Culture - Preliminary NO GROWTH OBTAINED AFTER 96 HOURS, INCUBATION TO CONTINUE FOR 1 DAYS. 06/12/18 17:30 Blood - Peripheral Venous Blood Culture - Preliminary NO GROWTH OBTAINED AFTER 96 HOURS, INCUBATION TO CONTINUE FOR 1 DAYS. 06/12/18 18:49 Urine - Urine Clean Catch Urine Culture - Final Pseudomonas Aeruginosa 06/12/18 19:05 Urine For Antigen Detection Legionella Antigen - Final 06/12/18 19:05 Urine For Antigen Detection Streptococcus pneumoniae Antigen (M - Final Active Medications Albuterol Sulfate (Ventolin 0.083% Nebulizer Soln -) 1 amp NEB Q4H PRN PRN Reason: SHORT OF BREATH/WHEEZING Albuterol/Ipratropium (Duoneb -) 1 amp NEB RQID [facility] Last Admin: 06/17/18 11:20 Dose: 1 amp Amlodipine Besylate (Norvasc -) 5 mg GT DAILY [facility] Last Admin: 06/17/18 11:06 Dose: 5 mg Ascorbic Acid (Vitamin C -) 500 mg GT BID [facility] Last Admin: 06/17/18 11:06 Dose: 500 mg Atorvastatin Calcium (Lipitor -) 20 mg GT HS [facility] Last Admin: 06/14/18 21:33 Dose: 20 mg Calcium Carbonate/Cholecalciferol (Os-Jamar 500+D -) 2 tab GT HS [facility] Last Admin: 06/14/18 21:33 Dose: 2 tab Enoxaparin Sodium (Lovenox -) 40 mg SQ DAILY [facility] Last Admin: 06/17/18 11:04 Dose: 40 mg Piperacillin Sod/Tazobactam (Sod 3.375 gm/ Dextrose) 50 mls @ 100 mls/hr IVPB Q8H-IV [facility]; Protocol Last Admin: 06/17/18 11:07 Dose: 100 mls/hr Lactulose (Cephulac (Oral Use)) 20 gm GT DAILY [facility] Last Admin: 06/17/18 11:04 Dose: 20 gm Levetiracetam (Keppra Injection -) 1,500 mg IVPB BID [facility] Last Admin: 06/17/18 11:04 Dose: 1,500 mg Methylprednisolone Sodium Succinate (Solu-Medrol -) 40 mg IVPUSH Q8H-IV [facility] Last Admin: 06/17/18 11:05 Dose: 40 mg Metoclopramide HCl (Reglan Oral Solution -) 5 mg GT QID [facility] Last Admin: 06/17/18 11:05 Dose: 5 mg Metoprolol Tartrate (Lopressor -) 50 mg GT DAILY [facility] Last Admin: 06/17/18 11:06 Dose: 50 mg Metoprolol Tartrate (Lopressor Injection -) 5 mg IVPB Q4H PRN PRN Reason: HYPERTENSION Multi-Ingredient Ointment (Zinc Oxide) 1 applic TP TID [facility] Last Admin: 06/17/18 05:22 Dose: 1 applic Pantoprazole Sodium (Protonix Iv) 40 mg IVPUSH DAILY [facility] Last Admin: 06/17/18 11:04 Dose: 40 mg Phenobarbital (Phenobarbital -) 30 mg GT BID [facility] Last Admin: 06/17/18 11:06 Dose: 30 mg Scopolamine HBr (Transderm-Scop -) 1 patch TD Q72H [facility] Last Admin: 06/16/18 10:45 Dose: 1 patch Silver Sulfadiazine (Silvadene -) 1 applic TP DAILY [facility] Last Admin: 06/17/18 11:06 Dose: 1 applic Topiramate (Topamax -) 200 mg GT BID [facility] Last Admin: 06/17/18 11:05 Dose: 200 mg Topiramate (Topamax -) 25 mg NR DAILY [facility] Last Admin: 06/17/18 11:06 Dose: 25 mg Valproate Sodium (Depakene -) 750 mg GT BID [facility] Last Admin: 06/17/18 11:04 Dose: 750 mg IMAGING: -Left Humerus: 2 views of the left humerus reveal a healing fracture deformity of the mid shaft of the left humerus. There is some displacement at the fracture site as shown in one view. The imaging is available for review. -CXR (06/12): No significant interval change or gross acute lung disease is present. -CXR (06/15): Single AP view of the chest has been submitted. Since 06/12/2018, again noted is a scoliosis with convexity to the left, prominent mediastinum and some chronic pleural reaction and atelectasis at the left base. There is elevated right hemidiaphragm with distended bowel. Correlation recommended. -KUB: A single view the abdomen has been obtained. There is motion artifact, G- tube, abdominal distention, motion artifact, degenerative changes and a prior left hip stabilization with hardware. Distended bowel could represent an early obstructive process. For more complete evaluation, better imaging with CT may be of help ASSESSMENT/PLAN: 67 y/o non-verbal Female with PMHx of anoxic brain injury, COPD (on 4L at home) , seizures presented with respiratory distress and found to be in Sepsis #Sepsis -Urine cx--Pseudomonas -Piperacillin/Tazobactam 3.375 Q6H (Started on 06/12) -ID (Dr. Hickey) consulted, appreciate rec's -Keep HOB elevated -Aspiration precautions #COPD -Continue NIPPV (12/07//40%) -IV Methylprednisolone 40mg Q8H -Albuterol/Ipratropium, Arformoterol, Budesonide -Supplemental O2 to maintain SpO2 88-92% -Pulm consulted #Chronic L arm fracture -Continue to use brace -Ortho (Dr. Garcia) consulted, appreciate rec's #Hypertension -IV Metoprolol Tartrate 5mg Q4H PRN added given episodes of SBP > 170 -Continue Metoprolol Tartrate 50 mg GT Daily -Increase Amlodipine to 5mg GT Daily #HLD -Atorvastatin 20mg GT HS #GERD -Metoclopramide, Pantoprazole, Lactulose #Seizures -Levetiracetam, Valproate, Topiramate, Phenobarbital #FEN -No standing fluids -Monitor lytes -Tube Feed Jevity 1.5 #PPx -Lovenox Visit type - Emergency Visit Emergency Visit: Yes ED Registration Date: 06/12/18 Care time: The patient presented to the Emergency Department on the above date and was hospitalized for further evaluation of their emergent condition. - New Patient This patient is new to me today: No - Critical Care Critical Care patient: No - Discharge Referral Referred to [facility] No
[2018-06-17] MEDS ORDERED: PT OWN MED DRAWER 7, Y5N ONE (10:57)
[2018-06-17] MEDS: PANTOPRAZOLE SODIUM 40 MG VIAL IVPUSH SCH (11:04)
[2018-06-17] MEDS: ENOXAPARIN NA (PORCINE) 40 MG/0.4 ML DISP.SYRIN SQ SCH (11:04)
[2018-06-17] MEDS: LACTULOSE 20 GM/30 ML UDC (FOR ORAL USE ONLY) GT SCH (11:04)
[2018-06-17] MEDS: VALPROATE SODIUM 250 MG/5 ML UNIT DOSE CUP GT SCH ×2 (11:04→21:41)
[2018-06-17] MEDS: levETIRAcetam 500 MG/5 ML INJECTION VIAL IVPB SCH ×2 (11:04→21:41)
[2018-06-17] MEDS: TOPIRAMATE 200 MG TABLET (FP) GT SCH ×2 (11:05→21:42)
[2018-06-17] MEDS: METOCLOPRAMIDE HCL 5 MG/5 ML UNIT DOSE CUP GT SCH ×4 (11:05→21:42)
[2018-06-17] MEDS: ASCORBIC ACID 500 MG TABLET (FP) GT SCH ×2 (11:06→21:42)
[2018-06-17] MEDS: PHENobarbital 30 MG TABLET GT SCH ×2 (11:06→21:42)
[2018-06-17] MEDS: TOPIRAMATE 25 MG TABLET (FP) NR SCH (11:06)
[2018-06-17] MEDS: SILVER SULFADIAZINE 1% TOP CREAM 50 GM JAR TP SCH (11:06)
[2018-06-17] MEDS: amLODIPine BESYLATE 5 MG TABLET (FP) GT SCH (11:06)
[2018-06-17] MEDS: METOPROLOL TARTRATE 50 MG TABLET (FP) GT SCH (11:06)
--- NOTE | 2018-06-17 11:55 | PN ---
Progress Note (short form) - Note Progress Note: Lethargic on NIPPV support but breathing is non-labored. Still with thick secretions. Intake & Output 06/14/18 06/15/18 06/16/18 06/17/18 23:59 23:59 23:59 23:59 Intake Total 1150 536 500 50 Balance 1150 536 500 50 Last Vital Signs Temp Pulse Resp BP Pulse Ox 98.5 F 95 H 24 H 143/74 96 06/17/18 09:57 06/17/18 09:57 06/17/18 09:57 06/17/18 09:57 06/17/18 08:38 Active Medications Albuterol Sulfate (Ventolin 0.083% Nebulizer Soln -) 1 amp NEB Q4H PRN PRN Reason: SHORT OF BREATH/WHEEZING Albuterol/Ipratropium (Duoneb -) 1 amp NEB RQID [facility] Last Admin: 06/17/18 07:40 Dose: 1 amp Amlodipine Besylate (Norvasc -) 5 mg GT DAILY [facility] Last Admin: 06/17/18 11:06 Dose: 5 mg Ascorbic Acid (Vitamin C -) 500 mg GT BID [facility] Last Admin: 06/17/18 11:06 Dose: 500 mg Atorvastatin Calcium (Lipitor -) 20 mg GT HS [facility] Last Admin: 06/14/18 21:33 Dose: 20 mg Calcium Carbonate/Cholecalciferol (Os-Jamar 500+D -) 2 tab GT HS [facility] Last Admin: 06/14/18 21:33 Dose: 2 tab Enoxaparin Sodium (Lovenox -) 40 mg SQ DAILY [facility] Last Admin: 06/17/18 11:04 Dose: 40 mg Piperacillin Sod/Tazobactam (Sod 3.375 gm/ Dextrose) 50 mls @ 100 mls/hr IVPB Q8H-IV [facility]; Protocol Last Admin: 06/17/18 11:07 Dose: 100 mls/hr Lactulose (Cephulac (Oral Use)) 20 gm GT DAILY [facility] Last Admin: 06/17/18 11:04 Dose: 20 gm Levetiracetam (Keppra Injection -) 1,500 mg IVPB BID [facility] Last Admin: 06/17/18 11:04 Dose: 1,500 mg Methylprednisolone Sodium Succinate (Solu-Medrol -) 40 mg IVPUSH Q8H-IV [facility] Last Admin: 06/17/18 11:05 Dose: 40 mg Metoclopramide HCl (Reglan Oral Solution -) 5 mg GT QID [facility] Last Admin: 06/17/18 11:05 Dose: 5 mg Metoprolol Tartrate (Lopressor -) 50 mg GT DAILY [facility] Last Admin: 06/17/18 11:06 Dose: 50 mg Metoprolol Tartrate (Lopressor Injection -) 5 mg IVPB Q4H PRN PRN Reason: HYPERTENSION Multi-Ingredient Ointment (Zinc Oxide) 1 applic TP TID [facility] Last Admin: 06/17/18 05:22 Dose: 1 applic Pantoprazole Sodium (Protonix Iv) 40 mg IVPUSH DAILY [facility] Last Admin: 06/17/18 11:04 Dose: 40 mg Phenobarbital (Phenobarbital -) 30 mg GT BID [facility] Last Admin: 06/17/18 11:06 Dose: 30 mg Scopolamine HBr (Transderm-Scop -) 1 patch TD Q72H [facility] Last Admin: 06/16/18 10:45 Dose: 1 patch Silver Sulfadiazine (Silvadene -) 1 applic TP DAILY [facility] Last Admin: 06/17/18 11:06 Dose: 1 applic Topiramate (Topamax -) 200 mg GT BID [facility] Last Admin: 06/17/18 11:05 Dose: 200 mg Topiramate (Topamax -) 25 mg NR DAILY [facility] Last Admin: 06/17/18 11:06 Dose: 25 mg Valproate Sodium (Depakene -) 750 mg GT BID [facility] Last Admin: 06/17/18 11:04 Dose: 750 mg Constitutional: Yes: NAD on NIPPV support Eyes: Yes: Conjunctiva Clear, EOM Intact HENT: Yes: Atraumatic, Normocephalic Neck: Yes: Supple, Trachea Midline Cardiovascular: Yes: Regular Rate and Rhythm Respiratory: Yes: Bilateral coarse Rhonchi ...Clubbing: No Gastrointestinal: Yes: Normal Bowel Sounds, Soft. No: Tenderness Edema: No Labs: Laboratory Results - last 24 hr 06/16/18 06/17/18 12:40 06:00 WBC 7.3 RBC 3.99 Hgb 12.3 Hct 36.7 MCV 92.1 MCH 30.9 MCHC 33.6 RDW 13.6 Plt Count 278 MPV 7.6 Absolute Neuts (auto) 6.5 Neutrophils % 89.4 H Lymphocytes % 8.5 D Monocytes % 2.0 L D Eosinophils % 0.0 Basophils % 0.1 Nucleated RBC % 0 Puncture Site Left radial ABG pH 7.40 ABG pCO2 at Pt Temp 60.3 H ABG pO2 at Pt Temp 70.8 L ABG HCO3 36.8 H ABG O2 Sat (Measured) 93.8 L ABG O2 Content 15.1 ABG Base Excess 10.3 H Scott Test Positive Oxygen Flow Rate 40 PEEP 5.0 Problem List - Problems (1) Acute and chronic respiratory failure with hypoxia Code(s): J96.21 - ACUTE AND CHRONIC RESPIRATORY FAILURE WITH HYPOXIA (2) COPD exacerbation Code(s): J44.1 - CHRONIC OBSTRUCTIVE PULMONARY DISEASE W (ACUTE) EXACERBATION (3) Functional quadriplegia Code(s): R53.2 - FUNCTIONAL QUADRIPLEGIA (4) HLD (hyperlipidemia) Code(s): E78.5 - HYPERLIPIDEMIA, UNSPECIFIED (5) HTN (hypertension) Code(s): I10 - ESSENTIAL (PRIMARY) HYPERTENSION Assessment/Plan Acute on Chronic Hypoxic Respiratory Failure R/O Pneumonia Acute COPD Exacerbation Anoxic Brain Injury Seizure Disorder - continue antibiotics - NIPPV support - IV Medrol - Inhaled bronchodilators standing and PRN - O2 to keep SpO2 >90% - Aspiration precautions - DVT prophylaxis - DNR/DNI Dr Bella
--- NOTE | 2018-06-17 12:16 | PN ---
Progress Note, Physician History of Present Illness: patient on bipapa looks calmer thick secretions - Current Medication List Current Medications: Active Medications Albuterol Sulfate (Ventolin 0.083% Nebulizer Soln -) 1 amp NEB Q4H PRN PRN Reason: SHORT OF BREATH/WHEEZING Albuterol/Ipratropium (Duoneb -) 1 amp NEB RQID [facility] Last Admin: 06/17/18 07:40 Dose: 1 amp Amlodipine Besylate (Norvasc -) 5 mg GT DAILY [facility] Last Admin: 06/17/18 11:06 Dose: 5 mg Ascorbic Acid (Vitamin C -) 500 mg GT BID [facility] Last Admin: 06/17/18 11:06 Dose: 500 mg Atorvastatin Calcium (Lipitor -) 20 mg GT HS [facility] Last Admin: 06/14/18 21:33 Dose: 20 mg Calcium Carbonate/Cholecalciferol (Os-Jamar 500+D -) 2 tab GT HS [facility] Last Admin: 06/14/18 21:33 Dose: 2 tab Enoxaparin Sodium (Lovenox -) 40 mg SQ DAILY [facility] Last Admin: 06/17/18 11:04 Dose: 40 mg Piperacillin Sod/Tazobactam (Sod 3.375 gm/ Dextrose) 50 mls @ 100 mls/hr IVPB Q8H-IV [facility]; Protocol Last Admin: 06/17/18 11:07 Dose: 100 mls/hr Lactulose (Cephulac (Oral Use)) 20 gm GT DAILY [facility] Last Admin: 06/17/18 11:04 Dose: 20 gm Levetiracetam (Keppra Injection -) 1,500 mg IVPB BID [facility] Last Admin: 06/17/18 11:04 Dose: 1,500 mg Methylprednisolone Sodium Succinate (Solu-Medrol -) 40 mg IVPUSH Q8H-IV [facility] Last Admin: 06/17/18 11:05 Dose: 40 mg Metoclopramide HCl (Reglan Oral Solution -) 5 mg GT QID [facility] Last Admin: 06/17/18 11:05 Dose: 5 mg Metoprolol Tartrate (Lopressor -) 50 mg GT DAILY [facility] Last Admin: 06/17/18 11:06 Dose: 50 mg Metoprolol Tartrate (Lopressor Injection -) 5 mg IVPB Q4H PRN PRN Reason: HYPERTENSION Multi-Ingredient Ointment (Zinc Oxide) 1 applic TP TID [facility] Last Admin: 06/17/18 05:22 Dose: 1 applic Pantoprazole Sodium (Protonix Iv) 40 mg IVPUSH DAILY [facility] Last Admin: 06/17/18 11:04 Dose: 40 mg Phenobarbital (Phenobarbital -) 30 mg GT BID [facility] Last Admin: 06/17/18 11:06 Dose: 30 mg Scopolamine HBr (Transderm-Scop -) 1 patch TD Q72H [facility] Last Admin: 06/16/18 10:45 Dose: 1 patch Silver Sulfadiazine (Silvadene -) 1 applic TP DAILY [facility] Last Admin: 06/17/18 11:06 Dose: 1 applic Topiramate (Topamax -) 200 mg GT BID [facility] Last Admin: 06/17/18 11:05 Dose: 200 mg Topiramate (Topamax -) 25 mg NR DAILY [facility] Last Admin: 06/17/18 11:06 Dose: 25 mg Valproate Sodium (Depakene -) 750 mg GT BID [facility] Last Admin: 06/17/18 11:04 Dose: 750 mg - Objective Vital Signs: Vital Signs Temperature 98.5 F 06/17/18 09:57 Pulse Rate 95 H 06/17/18 09:57 Respiratory Rate 24 H 06/17/18 09:57 Blood Pressure 143/74 06/17/18 09:57 O2 Sat by Pulse Oximetry (%) 96 06/17/18 08:38 Constitutional: Yes: Other Cardiovascular: Yes: Regular Rate and Rhythm Respiratory: Yes: On BiPap Gastrointestinal: Yes: Normal Bowel Sounds, Soft Musculoskeletal: Yes: WNL Extremities: Yes: Other (conteracted) Neurological: Yes: Other Psychiatric: Yes: Other Labs: CBC, BMP 06/17/18 06:00 06/13/18 06:30 INR, PTT INR 1.02 (0.83-1.09) 06/12/18 16:07 Assessment/Plan Problem List - Problems (1) Acute respiratory failure with hypoxia Code(s): J96.01 - ACUTE RESPIRATORY FAILURE WITH HYPOXIA (2) Anoxic brain damage Code(s): G93.1 - ANOXIC BRAIN DAMAGE, NOT ELSEWHERE CLASSIFIED (3) Aspiration pneumonia Code(s): J69.0 - PNEUMONITIS DUE TO INHALATION OF FOOD AND VOMIT (4) COPD exacerbation Code(s): J44.1 - CHRONIC OBSTRUCTIVE PULMONARY DISEASE W (ACUTE) EXACERBATION (5) Fracture of left humerus Code(s): S42.302A - UNSP FRACTURE OF SHAFT OF HUMERUS, LEFT ARM, INIT (6) Functional quadriplegia Code(s): R53.2 - FUNCTIONAL QUADRIPLEGIA (7) HLD (hyperlipidemia) Code(s): E78.5 - HYPERLIPIDEMIA, UNSPECIFIED (8) HTN (hypertension) Code(s): I10 - ESSENTIAL (PRIMARY) HYPERTENSION (9) Scoliosis deformity of spine Code(s): M41.9 - SCOLIOSIS, UNSPECIFIED (10) Seizure disorder Code(s): G40.909 - EPILEPSY, UNSP, NOT INTRACTABLE, WITHOUT STATUS EPILEPTICUS (11) Shortness of breath Code(s): R06.02 - SHORTNESS OF BREATH Assessment/Plan PNA - suspected Aspiration UTI Respiratory distress - on BIPAP Fever Leukocytosis LUE fracture Anoxic brain injury Functional Quadriplegia HTN HLD Seizure d.o. COPD plan continue abx resp support rest ap per the team pul on board
--- NOTE | 2018-06-17 16:32 | PN ---
Teaching Attending Note Name of Resident: Melania Marin ATTENDING PHYSICIAN STATEMENT I saw and evaluated the patient. I reviewed the resident's note and discussed the case with the resident. I agree with the resident's findings and plan as documented. SUBJECTIVE: Please is feeling better today, arousable. OBJECTIVE: Vital Signs Temperature 98.2 F 06/17/18 14:40 Pulse Rate 89 06/17/18 14:40 Respiratory Rate 21 H 06/17/18 14:40 Blood Pressure 131/66 06/17/18 14:40 O2 Sat by Pulse Oximetry (%) 95 06/17/18 14:20 GENERAL: The patient is non-verbal, lying in bed on Bipap. HEAD: Normal with no signs of trauma. EYES: PERRL, sclera anicteric, conjunctiva clear. ENT: Ears normal, on Bipap now , NECK: Trachea midline, supple. LUNGS: decreased BS BL , no wheeze, no crackles, mild accessory muscle use. HEART: RRR, S1, S2 without murmur, rub or gallop. ABDOMEN: Soft, nontender, nondistended, normoactive bowel sounds, no guarding, no rebound, positive for G tube. EXTREMITIES: 2+ pulses, warm, well-perfused, no edema. left humural fx, in a cast. NEUROLOGICAL: Cranial nerves II through XII grossly intact. PSYCH: non verbal, cannot be accessed , does not follow any commands SKIN: Warm, dry, normal turgor, no rashes or lesions appreciated CBCD WBC 7.3 K/mm3 (4.0-10.0) 06/17/18 06:00 RBC 3.99 M/mm3 (3.60-5.2) 06/17/18 06:00 Hgb 12.3 GM/dL (10.7-15.3) 06/17/18 06:00 Hct 36.7 % (32.4-45.2) 06/17/18 06:00 MCV 92.1 fl (80-96) 06/17/18 06:00 MCHC 33.6 g/dl (32.0-36.0) 06/17/18 06:00 RDW 13.6 % (11.6-15.6) 06/17/18 06:00 Plt Count 278 K/MM3 (134-434) 06/17/18 06:00 MPV 7.6 fl (7.5-11.1) 06/17/18 06:00 CMP Sodium 139 mmol/L (136-145) 06/13/18 06:30 Potassium 3.6 mmol/L (3.5-5.1) 06/13/18 06:30 Chloride 101 mmol/L (98-107) 06/13/18 06:30 Carbon Dioxide 33 mmol/L (21-32) H 06/13/18 06:30 Anion Gap 5 MMOL/L (8-16) L 06/13/18 06:30 BUN 8 mg/dL (7-18) 06/13/18 06:30 Creatinine < 0.2 mg/dL (0.55-1.3) L 06/13/18 06:30 Creat Clearance w eGFR 356.50 (>60) 06/13/18 06:30 Random Glucose 80 mg/dL (74-106) 06/13/18 06:30 Calcium 8.4 mg/dL (8.5-10.1) L 06/13/18 06:30 Total Bilirubin 0.2 mg/dL (0.2-1) 06/12/18 15:34 AST 21 U/L (15-37) 06/12/18 15:34 ALT 23 U/L (13-61) 06/12/18 15:34 Alkaline Phosphatase 326 U/L (45-117) H 06/12/18 15:34 Total Protein 7.9 g/dl (6.4-8.2) 06/12/18 15:34 Albumin 3.0 g/dl (3.4-5.0) L 06/12/18 15:34 Current Medications Generic Name Dose Route Start Last Admin Trade Name Freq PRN Reason Stop Dose Admin Albuterol Sulfate 1 amp 06/16/18 11:52 Ventolin 0.083% Nebulizer Soln - NEB Q4H PRN SHORT OF BREATH/WHEEZING Albuterol/Ipratropium 1 amp 06/16/18 12:00 06/17/18 15:23 Duoneb - NEB 1 amp RQID [facility] Administration Amlodipine Besylate 5 mg 06/17/18 09:00 06/17/18 11:06 Norvasc - GT 5 mg DAILY [facility] Administration Ascorbic Acid 500 mg 06/12/18 22:00 06/17/18 11:06 Vitamin C - GT 500 mg BID [facility] Administration Atorvastatin Calcium 20 mg 06/13/18 22:00 06/14/18 21:33 Lipitor - GT 20 mg HS [facility] Administration Calcium Carbonate/Cholecalciferol 2 tab 06/12/18 22:00 06/14/18 21:33 Os-Jamar 500+D - GT 2 tab HS [facility] Administration Enoxaparin Sodium 40 mg 06/13/18 10:00 06/17/18 11:04 Lovenox - SQ 40 mg DAILY [facility] Administration Piperacillin Sod/Tazobactam 50 mls @ 100 mls/hr 06/13/18 18:00 06/17/18 11:07 Sod 3.375 gm/ Dextrose IVPB 100 mls/hr Q8H-IV [facility] Administration Protocol Lactulose 20 gm 06/13/18 10:00 06/17/18 11:04 Cephulac (Oral Use) GT 20 gm DAILY [facility] Administration Levetiracetam 1,500 mg 06/15/18 10:00 06/17/18 11:04 Keppra Injection - IVPB 1,500 mg BID [facility] Administration Methylprednisolone Sodium Succinate 40 mg 06/16/18 12:00 06/17/18 11:05 Solu-Medrol - IVPUSH 40 mg Q8H-IV [facility] Administration Metoclopramide HCl 5 mg 06/12/18 22:00 06/17/18 14:13 Reglan Oral Solution - GT 5 mg QID [facility] Administration Metoprolol Tartrate 50 mg 06/13/18 10:00 06/17/18 11:06 Lopressor - GT 50 mg DAILY [facility] Administration Metoprolol Tartrate 5 mg 06/15/18 09:49 Lopressor Injection - IVPB Q4H PRN HYPERTENSION Multi-Ingredient Ointment 1 applic 06/12/18 22:00 06/17/18 14:13 Zinc Oxide TP 1 applic TID [facility] Administration Pantoprazole Sodium 40 mg 06/13/18 10:00 06/17/18 11:04 Protonix Iv IVPUSH 40 mg DAILY [facility] Administration Phenobarbital 30 mg 06/12/18 22:00 06/17/18 11:06 Phenobarbital - GT 30 mg BID [facility] Administration Scopolamine HBr 1 patch 06/13/18 10:00 06/16/18 10:45 Transderm-Scop - TD 1 patch Q72H [facility] Administration Silver Sulfadiazine 1 applic 06/13/18 10:00 06/17/18 11:06 Silvadene - TP 1 applic DAILY [facility] Administration Topiramate 200 mg 06/12/18 22:00 06/17/18 11:05 Topamax - GT 200 mg BID [facility] Administration Topiramate 25 mg 06/13/18 10:00 06/17/18 11:06 Topamax - NR 25 mg DAILY [facility] Administration Valproate Sodium 750 mg 06/12/18 22:00 06/17/18 11:04 Depakene - GT 750 mg BID [facility] Administration Home Medications Medication Instructions Recorded Alendronate Sodium [Binosto] 70 mg GT WEEKLY 06/12/18 Amlodipine Besylate 2.5 mg GT DAILY 06/12/18 Arformoterol Tartrate [Brovana] 1 vial NEB BID 06/12/18 Ascorbic Acid 500 mg GT BID 06/12/18 Budesonide [Pulmicort 0.5 mg 1 vial NEB BID 06/12/18 Nebulizer -] Calcium Carbonate/Vitamin D3 2 each GT HS 06/12/18 [Oystercal-D 500 mg-400 Unit Tb] Calcium Carbonate/Vitamin D3 2 tablet GT HS 06/12/18 [Oystercal-D 500 mg-400 Unit Tb] Ipratropium/Albuterol Sulfate 1 vial NEB QID 06/12/18 [Iprat-Albut 0.5-3(2.5) mg/3 ml] Lactulose 30 ml GT DAILY 06/12/18 Metoclopramide HCl 5 mg GT QID 06/12/18 Metoprolol Tartrate 50 mg GT DAILY 06/12/18 Omeprazole 20 mg GT DAILY 06/12/18 Phenobarbital 32.4 mg GT BID 06/12/18 Protein Supplement [Promod] 30 ml GT DAILY 06/12/18 Scopolamine 1 each TD Q72H 06/12/18 Scopolamine [Transderm-Scop] 1 each TD Q72H 06/12/18 Silver Sulfadiazine [Silvadene] 20 gm TP DAILY 06/12/18 Simvastatin 40 mg GT DAILY 06/12/18 Topiramate 25 mg GT DAILY 06/12/18 Topiramate 200 mg GT BID 06/12/18 Valproate Sodium [Depakene] 15 ml GT BID 06/12/18 Zinc Oxide 1 applic TP TID 06/12/18 levETIRAcetam [levETIRAcetam ORAL 15 ml GT BID 06/12/18 SUSPENSION] 06/12/18 17:30 Blood - Peripheral Venous Blood Culture - Preliminary NO GROWTH OBTAINED AFTER 72 HOURS, INCUBATION TO CONTINUE FOR 2 DAYS. 06/12/18 17:30 Blood - Peripheral Venous Blood Culture - Preliminary NO GROWTH OBTAINED AFTER 72 HOURS, INCUBATION TO CONTINUE FOR 2 DAYS. 06/12/18 18:49 Urine - Urine Clean Catch Urine Culture - Final Pseudomonas Aeruginosa 06/12/18 19:05 Urine For Antigen Detection Legionella Antigen - Final 06/12/18 19:05 Urine For Antigen Detection Streptococcus pneumoniae Antigen (M - Final ASSESSMENT AND PLAN: Patient is a 67 year old non-verbal female with a past medical history of anoxic brain injury, COPD ON [facility] home 02, and seizures who was brought to the hospital from [facility] for hypoxia with labored breathing. #Acute hypoxic hypercapnic copd exacerbation: on Bipap continue, arousable, setting adjustment per pulm., continue nebs. # Hypertensive urgency: better controlled , switched to IV lopressor since patient is not absorbing the meds through the G-tube # Aspiration Pneumonia: On zosyn continue , cx as above urine cx as above , ID on the case, dr Hickey. RSV and inf.A&B neg. # Acute UTI ; growing psudomonas sensitive to to IV zosyn. #LUE Fx: Xray positive for mildly nonhealing fx with some displacement, ortho on board . # Seizure hx: changed Keppras to IV since patient is NPO for now, continue rest of the meds po. # Functional Quadriplegia continue to monitor the patient. continue Bipap xray of Abdomen noted pulm. and ortho consult appreciated
[2018-06-17] MEDS: ATORVASTATIN CA 20 MG TABLET (FP) GT SCH (21:42)
[2018-06-17] MEDS: CALCIUM 500MG/VIT-D 200 UNITS COMBO TABLET (FP) GT SCH (21:42)
[2018-06-18] MEDS ORDERED: DEXTROSE 5%-WATER - 50 ML IVPB ONE ×3 (01:16→17:13)
[2018-06-18] MEDS ORDERED: PIPERACILLIN/TAZOBACTAM 3.375 GM VIAL IVPB ONE ×3 (01:16→17:12)
[2018-06-18] MEDS: PIPERACILLIN/TAZOB 3.375 GM 3.375 GM in DEXTROSE 5%-WATER - 50 ML IVPB SCH ×3 (02:00→18:32)
[2018-06-18] MEDS: methylPREDNISolone NA SUCC 40 MG/1 ML VIAL IVPUSH SCH ×3 (02:00→18:32)
[2018-06-18] MEDS: ZINC OXIDE 20% TOPICAL OINTMENT 30 GM TUBE TP SCH ×4 (02:40→21:43)
--- NOTE | 2018-06-18 07:10 | PN ---
Physical Exam: SUBJECTIVE: Patient seen and examined this AM. Remained on NIPPV overnight. Sleepy but easily arousable this AM, less lethargic. Tolerating tube feeds. Resting comfortably. No acute overnight events as per nursing. OBJECTIVE: Vital Signs Period Temp Pulse Resp BP Sys/Restrepo Pulse Ox Last 24 Hr 97.1 F-98.9 F 63-95 20-24 122-146/60-74 95-98 GENERAL: NAD HEAD: Microcephaly EYES: PERRL ENT: Moist mucous membranes NECK: No JVD LUNGS: Coarse breath sounds throughout, no wheezes, no crackles HEART: RRR, S1, S2 without murmur ABDOMEN: Soft, mildly distended, + bowel sounds, GTube present on the left without surrounding erythema or drainage EXTREMITIES: All extremities contracted, 1+ right pedal edema NEUROLOGICAL: Awake SKIN: Warm, Dry Laboratory Results - last 24 hr 06/17/18 06:00 WBC 7.3 RBC 3.99 Hgb 12.3 Hct 36.7 MCV 92.1 MCH 30.9 MCHC 33.6 RDW 13.6 Plt Count 278 MPV 7.6 Absolute Neuts (auto) 6.5 Neutrophils % 89.4 H Lymphocytes % 8.5 D Monocytes % 2.0 L D Eosinophils % 0.0 Basophils % 0.1 Nucleated RBC % 0 Microbiology 06/12/18 17:30 Blood - Peripheral Venous Blood Culture - Final NO GROWTH AFTER 5 DAYS INCUBATION 06/12/18 17:30 Blood - Peripheral Venous Blood Culture - Final NO GROWTH AFTER 5 DAYS INCUBATION 06/12/18 18:49 Urine - Urine Clean Catch Urine Culture - Final Pseudomonas Aeruginosa 06/12/18 19:05 Urine For Antigen Detection Legionella Antigen - Final 06/12/18 19:05 Urine For Antigen Detection Streptococcus pneumoniae Antigen (M - Final Active Medications Albuterol Sulfate (Ventolin 0.083% Nebulizer Soln -) 1 amp NEB Q4H PRN PRN Reason: SHORT OF BREATH/WHEEZING Albuterol/Ipratropium (Duoneb -) 1 amp NEB RQID [facility] Last Admin: 06/17/18 20:50 Dose: 1 amp Amlodipine Besylate (Norvasc -) 5 mg GT DAILY [facility] Last Admin: 06/17/18 11:06 Dose: 5 mg Ascorbic Acid (Vitamin C -) 500 mg GT BID [facility] Last Admin: 06/17/18 21:42 Dose: 500 mg Atorvastatin Calcium (Lipitor -) 20 mg GT HS [facility] Last Admin: 06/17/18 21:42 Dose: 20 mg Calcium Carbonate/Cholecalciferol (Os-Jamar 500+D -) 2 tab GT HS [facility] Last Admin: 06/17/18 21:42 Dose: 2 tab Enoxaparin Sodium (Lovenox -) 40 mg SQ DAILY [facility] Last Admin: 06/17/18 11:04 Dose: 40 mg Piperacillin Sod/Tazobactam (Sod 3.375 gm/ Dextrose) 50 mls @ 100 mls/hr IVPB Q8H-IV [facility]; Protocol Last Admin: 06/18/18 02:00 Dose: 100 mls/hr Lactulose (Cephulac (Oral Use)) 20 gm GT DAILY [facility] Last Admin: 06/17/18 11:04 Dose: 20 gm Levetiracetam (Keppra Injection -) 1,500 mg IVPB BID [facility] Last Admin: 06/17/18 21:41 Dose: 1,500 mg Methylprednisolone Sodium Succinate (Solu-Medrol -) 40 mg IVPUSH Q8H-IV [facility] Last Admin: 06/18/18 02:00 Dose: 40 mg Metoclopramide HCl (Reglan Oral Solution -) 5 mg GT QID [facility] Last Admin: 06/17/18 21:42 Dose: 5 mg Metoprolol Tartrate (Lopressor -) 50 mg GT DAILY [facility] Last Admin: 06/17/18 11:06 Dose: 50 mg Metoprolol Tartrate (Lopressor Injection -) 5 mg IVPB Q4H PRN PRN Reason: HYPERTENSION Multi-Ingredient Ointment (Zinc Oxide) 1 applic TP TID [facility] Last Admin: 06/18/18 06:24 Dose: 1 applic Pantoprazole Sodium (Protonix Iv) 40 mg IVPUSH DAILY [facility] Last Admin: 06/17/18 11:04 Dose: 40 mg Phenobarbital (Phenobarbital -) 30 mg GT BID [facility] Last Admin: 06/17/18 21:42 Dose: 30 mg Scopolamine HBr (Transderm-Scop -) 1 patch TD Q72H [facility] Last Admin: 06/16/18 10:45 Dose: 1 patch Silver Sulfadiazine (Silvadene -) 1 applic TP DAILY [facility] Last Admin: 06/17/18 11:06 Dose: 1 applic Topiramate (Topamax -) 200 mg GT BID [facility] Last Admin: 06/17/18 21:42 Dose: 200 mg Topiramate (Topamax -) 25 mg NR DAILY [facility] Last Admin: 06/17/18 11:06 Dose: 25 mg Valproate Sodium (Depakene -) 750 mg GT BID [facility] Last Admin: 06/17/18 21:41 Dose: 750 mg IMAGING: -Left Humerus: 2 views of the left humerus reveal a healing fracture deformity of the mid shaft of the left humerus. There is some displacement at the fracture site as shown in one view. The imaging is available for review. -CXR (06/12): No significant interval change or gross acute lung disease is present. -CXR (06/15): Single AP view of the chest has been submitted. Since 06/12/2018, again noted is a scoliosis with convexity to the left, prominent mediastinum and some chronic pleural reaction and atelectasis at the left base. There is elevated right hemidiaphragm with distended bowel. Correlation recommended. -KUB: A single view the abdomen has been obtained. There is motion artifact, G- tube, abdominal distention, motion artifact, degenerative changes and a prior left hip stabilization with hardware. Distended bowel could represent an early obstructive process. For more complete evaluation, better imaging with CT may be of help ASSESSMENT/PLAN: 67 y/o non-verbal Female with PMHx of anoxic brain injury, COPD (on 4L at home) , seizures presented with respiratory distress and found to be in Sepsis #Sepsis -Urine cx--Pseudomonas -Piperacillin/Tazobactam 3.375 Q6H (Started on 06/12) -ID (Dr. Hickey) consulted, appreciate rec's -Keep HOB elevated -Aspiration precautions #COPD -Continue NIPPV (12/08/19/40%) -IV Methylprednisolone 40mg Q8H -Albuterol/Ipratropium, Arformoterol, Budesonide -Supplemental O2 to maintain SpO2 88-92% -Pulm consulted #Chronic L arm fracture -Continue to use brace -Ortho (Dr. Garcia) consulted, appreciate rec's #Hypertension -IV Metoprolol Tartrate 5mg Q4H PRN added given episodes of SBP > 170 -Metoprolol Tartrate 50 mg GT Daily, Amlodipine to 5mg GT Daily #HLD -Atorvastatin 20mg GT HS #GERD -Metoclopramide, Pantoprazole -Hold Lactulose given Loose BM's when Tube feeds were started -Add Bacid #Seizures -Levetiracetam, Valproate, Topiramate, Phenobarbital #FEN -No standing fluids -Monitor lytes -Tube Feed Jevity 1.5 #PPx -Lovenox Visit type - Emergency Visit Emergency Visit: Yes ED Registration Date: 06/12/18 Care time: The patient presented to the Emergency Department on the above date and was hospitalized for further evaluation of their emergent condition. - New Patient This patient is new to me today: No - Critical Care Critical Care patient: No - Discharge Referral Referred to [facility] No
[2018-06-18] MEDS: BUDESONIDE 0.5 MG/2 ML INH SUSP VIAL NEB SCH ×2 (07:45→20:50)
[2018-06-18] MEDS: ALBUTEROL SO4 2.5/IPRATROPIUM 0.5 INH SOL 3 ML VIAL.NEB. NEB SCH ×4 (07:45→20:45)
[2018-06-18] MEDS: ENOXAPARIN NA (PORCINE) 40 MG/0.4 ML DISP.SYRIN SQ SCH (11:01)
[2018-06-18] MEDS: TOPIRAMATE 200 MG TABLET (FP) GT SCH ×2 (11:01→21:41)
[2018-06-18] MEDS: VALPROATE SODIUM 250 MG/5 ML UNIT DOSE CUP GT SCH ×2 (11:01→21:41)
[2018-06-18] MEDS: METOCLOPRAMIDE HCL 5 MG/5 ML UNIT DOSE CUP GT SCH ×4 (11:02→21:41)
[2018-06-18] MEDS: LACTOBACILLUS ACIDOPHILUS 1 TABLET PO SCH ×2 (11:02→21:42)
[2018-06-18] MEDS: TOPIRAMATE 25 MG TABLET (FP) NR SCH (11:04)
[2018-06-18] MEDS: PANTOPRAZOLE SODIUM 40 MG VIAL IVPUSH SCH (11:04)
[2018-06-18] MEDS: levETIRAcetam 500 MG/5 ML INJECTION VIAL IVPB SCH (11:04)
[2018-06-18] MEDS: amLODIPine BESYLATE 5 MG TABLET (FP) GT SCH (11:04)
[2018-06-18] MEDS: ASCORBIC ACID 500 MG TABLET (FP) GT SCH ×2 (11:04→21:42)
[2018-06-18] MEDS: METOPROLOL TARTRATE 50 MG TABLET (FP) GT SCH (11:04)
[2018-06-18] MEDS: PHENobarbital 30 MG TABLET GT SCH ×2 (11:05→21:42)
--- NOTE | 2018-06-18 12:32 | PN ---
Progress Note, Physician History of Present Illness: PULMONARY POORLY RESPONSIVE ON BIPAP,-RESP DISTRESS - Current Medication List Current Medications: Active Medications Albuterol Sulfate (Ventolin 0.083% Nebulizer Soln -) 1 amp NEB Q4H PRN PRN Reason: SHORT OF BREATH/WHEEZING Albuterol/Ipratropium (Duoneb -) 1 amp NEB RQID [facility] Last Admin: 06/18/18 11:15 Dose: 1 amp Amlodipine Besylate (Norvasc -) 5 mg GT DAILY [facility] Last Admin: 06/18/18 11:04 Dose: 5 mg Ascorbic Acid (Vitamin C -) 500 mg GT BID [facility] Last Admin: 06/18/18 11:04 Dose: 500 mg Atorvastatin Calcium (Lipitor -) 20 mg GT HS [facility] Last Admin: 06/17/18 21:42 Dose: 20 mg Budesonide (Pulmicort 0.5 Mg Nebulizer -) 1 amp NEB RBID [facility] Last Admin: 06/18/18 07:45 Dose: 1 amp Calcium Carbonate/Cholecalciferol (Os-Jamar 500+D -) 2 tab GT HS [facility] Last Admin: 06/17/18 21:42 Dose: 2 tab Enoxaparin Sodium (Lovenox -) 40 mg SQ DAILY [facility] Last Admin: 06/18/18 11:01 Dose: 40 mg Piperacillin Sod/Tazobactam (Sod 3.375 gm/ Dextrose) 50 mls @ 100 mls/hr IVPB Q8H-IV [facility]; Protocol Last Admin: 06/18/18 11:05 Dose: 100 mls/hr Lactobacillus Acidophilus (Bacid -) 1 tab PO BID [facility] Last Admin: 06/18/18 11:02 Dose: 1 tab Lactulose (Cephulac (Oral Use)) 20 gm GT DAILY [facility] Last Admin: 06/17/18 11:04 Dose: 20 gm Levetiracetam (Keppra Injection -) 1,500 mg IVPB BID [facility] Last Admin: 06/18/18 11:04 Dose: 1,500 mg Methylprednisolone Sodium Succinate (Solu-Medrol -) 40 mg IVPUSH Q8H-IV [facility] Last Admin: 06/18/18 11:01 Dose: 40 mg Metoclopramide HCl (Reglan Oral Solution -) 5 mg GT QID [facility] Last Admin: 06/18/18 11:02 Dose: 5 mg Metoprolol Tartrate (Lopressor -) 50 mg GT DAILY [facility] Last Admin: 06/18/18 11:04 Dose: 50 mg Metoprolol Tartrate (Lopressor Injection -) 5 mg IVPB Q4H PRN PRN Reason: HYPERTENSION Multi-Ingredient Ointment (Zinc Oxide) 1 applic TP TID [facility] Last Admin: 06/18/18 06:24 Dose: 1 applic Pantoprazole Sodium (Protonix Iv) 40 mg IVPUSH DAILY [facility] Last Admin: 06/18/18 11:04 Dose: 40 mg Phenobarbital (Phenobarbital -) 30 mg GT BID [facility] Last Admin: 06/18/18 11:05 Dose: 30 mg Scopolamine HBr (Transderm-Scop -) 1 patch TD Q72H [facility] Last Admin: 06/16/18 10:45 Dose: 1 patch Silver Sulfadiazine (Silvadene -) 1 applic TP DAILY [facility] Last Admin: 06/17/18 11:06 Dose: 1 applic Topiramate (Topamax -) 200 mg GT BID [facility] Last Admin: 06/18/18 11:01 Dose: 200 mg Topiramate (Topamax -) 25 mg NR DAILY [facility] Last Admin: 06/18/18 11:04 Dose: 25 mg Valproate Sodium (Depakene -) 750 mg GT BID [facility] Last Admin: 06/18/18 11:01 Dose: 750 mg - Objective Vital Signs: Vital Signs Temperature 98.1 F 06/18/18 10:00 Pulse Rate 73 06/18/18 10:00 Respiratory Rate 20 06/18/18 10:00 Blood Pressure 121/60 06/18/18 10:00 O2 Sat by Pulse Oximetry (%) 95 06/18/18 11:40 Constitutional: Yes: Well Nourished, Other (POORLY RESPONSIVE) Eyes: Yes: WNL HENT: Yes: WNL Neck: Yes: WNL Cardiovascular: Yes: Regular Rate and Rhythm, S1, S2 Respiratory: Yes: Rhonchi (SATTERED RHONCHI) Gastrointestinal: Yes: Normal Bowel Sounds, Soft Extremities: Yes: Shortened Edema: No Labs: CBC, BMP Assessment/Plan Problem List - Problems (1) Acute and chronic respiratory failure with hypoxia Code(s): J96.21 - ACUTE AND CHRONIC RESPIRATORY FAILURE WITH HYPOXIA (2) COPD exacerbation Code(s): J44.1 - CHRONIC OBSTRUCTIVE PULMONARY DISEASE W (ACUTE) EXACERBATION (3) Functional quadriplegia Code(s): R53.2 - FUNCTIONAL QUADRIPLEGIA (4) HLD (hyperlipidemia) Code(s): E78.5 - HYPERLIPIDEMIA, UNSPECIFIED (5) HTN (hypertension) Code(s): I10 - ESSENTIAL (PRIMARY) HYPERTENSION Assessment/Plan Acute on Chronic Hypoxic Respiratory Failure r/o Pneumonia Acute COPD Exacerbation Anoxic Brain Injury Seizure Disorder - antibiotics - BiPAP - medrol - inhaled bronchodilators standing and PRN - O2 to keep SpO2 >90% - aspiration precautions - DVT prophylaxis DR SUAREZ
[2018-06-18] MEDS: SILVER SULFADIAZINE 1% TOP CREAM 50 GM JAR TP SCH (13:15)
--- NOTE | 2018-06-18 13:25 | PN ---
Progress Note, Physician History of Present Illness: poorly responsive on bipap - Current Medication List Current Medications: Active Medications Albuterol Sulfate (Ventolin 0.083% Nebulizer Soln -) 1 amp NEB Q4H PRN PRN Reason: SHORT OF BREATH/WHEEZING Albuterol/Ipratropium (Duoneb -) 1 amp NEB RQID [facility] Last Admin: 06/18/18 11:15 Dose: 1 amp Amlodipine Besylate (Norvasc -) 5 mg GT DAILY [facility] Last Admin: 06/18/18 11:04 Dose: 5 mg Ascorbic Acid (Vitamin C -) 500 mg GT BID [facility] Last Admin: 06/18/18 11:04 Dose: 500 mg Atorvastatin Calcium (Lipitor -) 20 mg GT HS [facility] Last Admin: 06/17/18 21:42 Dose: 20 mg Budesonide (Pulmicort 0.5 Mg Nebulizer -) 1 amp NEB RBID [facility] Last Admin: 06/18/18 07:45 Dose: 1 amp Calcium Carbonate/Cholecalciferol (Os-Jamar 500+D -) 2 tab GT HS [facility] Last Admin: 06/17/18 21:42 Dose: 2 tab Enoxaparin Sodium (Lovenox -) 40 mg SQ DAILY [facility] Last Admin: 06/18/18 11:01 Dose: 40 mg Piperacillin Sod/Tazobactam (Sod 3.375 gm/ Dextrose) 50 mls @ 100 mls/hr IVPB Q8H-IV [facility]; Protocol Last Admin: 06/18/18 11:05 Dose: 100 mls/hr Lactobacillus Acidophilus (Bacid -) 1 tab PO BID [facility] Last Admin: 06/18/18 11:02 Dose: 1 tab Levetiracetam (Keppra Injection -) 1,500 mg IVPB BID [facility] Last Admin: 06/18/18 11:04 Dose: 1,500 mg Methylprednisolone Sodium Succinate (Solu-Medrol -) 40 mg IVPUSH Q8H-IV [facility] Last Admin: 06/18/18 11:01 Dose: 40 mg Metoclopramide HCl (Reglan Oral Solution -) 5 mg GT QID [facility] Last Admin: 06/18/18 13:15 Dose: 5 mg Metoprolol Tartrate (Lopressor -) 50 mg GT DAILY [facility] Last Admin: 06/18/18 11:04 Dose: 50 mg Metoprolol Tartrate (Lopressor Injection -) 5 mg IVPB Q4H PRN PRN Reason: HYPERTENSION Multi-Ingredient Ointment (Zinc Oxide) 1 applic TP TID [facility] Last Admin: 06/18/18 13:15 Dose: 1 applic Pantoprazole Sodium (Protonix Iv) 40 mg IVPUSH DAILY [facility] Last Admin: 06/18/18 11:04 Dose: 40 mg Phenobarbital (Phenobarbital -) 30 mg GT BID [facility] Last Admin: 06/18/18 11:05 Dose: 30 mg Scopolamine HBr (Transderm-Scop -) 1 patch TD Q72H [facility] Last Admin: 06/16/18 10:45 Dose: 1 patch Silver Sulfadiazine (Silvadene -) 1 applic TP DAILY [facility] Last Admin: 06/18/18 13:15 Dose: 1 applic Topiramate (Topamax -) 200 mg GT BID [facility] Last Admin: 06/18/18 11:01 Dose: 200 mg Topiramate (Topamax -) 25 mg NR DAILY [facility] Last Admin: 06/18/18 11:04 Dose: 25 mg Valproate Sodium (Depakene -) 750 mg GT BID [facility] Last Admin: 06/18/18 11:01 Dose: 750 mg - Objective Vital Signs: Vital Signs Temperature 98.1 F 06/18/18 10:00 Pulse Rate 73 06/18/18 10:00 Respiratory Rate 20 06/18/18 10:00 Blood Pressure 121/60 06/18/18 10:00 O2 Sat by Pulse Oximetry (%) 95 06/18/18 11:40 Cardiovascular: Yes: Regular Rate and Rhythm Respiratory: Yes: On BiPap Gastrointestinal: Yes: Normal Bowel Sounds, Soft Musculoskeletal: Yes: WNL Extremities: Yes: Other (contracted) Neurological: Yes: Other Psychiatric: Yes: Other Labs: CBC, BMP 06/17/18 06:00 06/13/18 06:30 INR, PTT INR 1.02 (0.83-1.09) 06/12/18 16:07 Assessment/Plan Problem List - Problems (1) Acute respiratory failure with hypoxia Code(s): J96.01 - ACUTE RESPIRATORY FAILURE WITH HYPOXIA (2) Anoxic brain damage Code(s): G93.1 - ANOXIC BRAIN DAMAGE, NOT ELSEWHERE CLASSIFIED (3) Aspiration pneumonia Code(s): J69.0 - PNEUMONITIS DUE TO INHALATION OF FOOD AND VOMIT (4) COPD exacerbation Code(s): J44.1 - CHRONIC OBSTRUCTIVE PULMONARY DISEASE W (ACUTE) EXACERBATION (5) Fracture of left humerus Code(s): S42.302A - UNSP FRACTURE OF SHAFT OF HUMERUS, LEFT ARM, INIT (6) Functional quadriplegia Code(s): R53.2 - FUNCTIONAL QUADRIPLEGIA (7) HLD (hyperlipidemia) Code(s): E78.5 - HYPERLIPIDEMIA, UNSPECIFIED (8) HTN (hypertension) Code(s): I10 - ESSENTIAL (PRIMARY) HYPERTENSION (9) Scoliosis deformity of spine Code(s): M41.9 - SCOLIOSIS, UNSPECIFIED (10) Seizure disorder Code(s): G40.909 - EPILEPSY, UNSP, NOT INTRACTABLE, WITHOUT STATUS EPILEPTICUS (11) Shortness of breath Code(s): R06.02 - SHORTNESS OF BREATH Assessment/Plan PNA - suspected Aspiration UTI Respiratory distress - on BIPAP Fever Leukocytosis LUE fracture Anoxic brain injury Functional Quadriplegia HTN HLD Seizure d.o. COPD plan continue abx resp support rest ap per the team pul on board
--- NOTE | 2018-06-18 19:48 | PN ---
Teaching Attending Note Name of Resident: Melania Marin ATTENDING PHYSICIAN STATEMENT I saw and evaluated the patient. I reviewed the resident's note and discussed the case with the resident. I agree with the resident's findings and plan as documented. SUBJECTIVE: Patient is better today but having diarrhea. no fever or chills, no shortness of breath. OBJECTIVE: Vital Signs Temperature 98.0 F 06/18/18 18:00 Pulse Rate 76 06/18/18 18:00 Respiratory Rate 20 06/18/18 18:00 Blood Pressure 110/60 06/18/18 18:00 O2 Sat by Pulse Oximetry (%) 96 06/18/18 16:15 GENERAL: The patient is non-verbal, lying in bed on Bipap. HEAD: Normal with no signs of trauma. EYES: PERRL, sclera anicteric, conjunctiva clear. ENT: Ears normal, on Bipap now , NECK: Trachea midline, supple. LUNGS: decreased BS BL , no wheeze, no crackles, mild accessory muscle use. HEART: RRR, S1, S2 without murmur, rub or gallop. ABDOMEN: Soft, nontender, nondistended, normoactive bowel sounds, no guarding, no rebound, positive for G tube. EXTREMITIES: 2+ pulses, warm, well-perfused, no edema. left humural fx, in a cast. NEUROLOGICAL: Cranial nerves II through XII grossly intact. PSYCH: non verbal, cannot be accessed , does not follow any commands SKIN: Warm, dry, normal turgor, no rashes or lesions appreciated CBCD WBC 7.3 K/mm3 (4.0-10.0) 06/17/18 06:00 RBC 3.99 M/mm3 (3.60-5.2) 06/17/18 06:00 Hgb 12.3 GM/dL (10.7-15.3) 06/17/18 06:00 Hct 36.7 % (32.4-45.2) 06/17/18 06:00 MCV 92.1 fl (80-96) 06/17/18 06:00 MCHC 33.6 g/dl (32.0-36.0) 06/17/18 06:00 RDW 13.6 % (11.6-15.6) 06/17/18 06:00 Plt Count 278 K/MM3 (134-434) 06/17/18 06:00 MPV 7.6 fl (7.5-11.1) 06/17/18 06:00 CMP Sodium 139 mmol/L (136-145) 06/13/18 06:30 Potassium 3.6 mmol/L (3.5-5.1) 06/13/18 06:30 Chloride 101 mmol/L (98-107) 06/13/18 06:30 Carbon Dioxide 33 mmol/L (21-32) H 06/13/18 06:30 Anion Gap 5 MMOL/L (8-16) L 06/13/18 06:30 BUN 8 mg/dL (7-18) 06/13/18 06:30 Creatinine < 0.2 mg/dL (0.55-1.3) L 06/13/18 06:30 Creat Clearance w eGFR 356.50 (>60) 06/13/18 06:30 Random Glucose 80 mg/dL (74-106) 06/13/18 06:30 Calcium 8.4 mg/dL (8.5-10.1) L 06/13/18 06:30 Total Bilirubin 0.2 mg/dL (0.2-1) 06/12/18 15:34 AST 21 U/L (15-37) 06/12/18 15:34 ALT 23 U/L (13-61) 06/12/18 15:34 Alkaline Phosphatase 326 U/L (45-117) H 06/12/18 15:34 Total Protein 7.9 g/dl (6.4-8.2) 06/12/18 15:34 Albumin 3.0 g/dl (3.4-5.0) L 06/12/18 15:34 Current Medications Generic Name Dose Route Start Last Admin Trade Name Freq PRN Reason Stop Dose Admin Albuterol Sulfate 1 amp 06/16/18 11:52 Ventolin 0.083% Nebulizer Soln - NEB Q4H PRN SHORT OF BREATH/WHEEZING Albuterol/Ipratropium 1 amp 06/16/18 12:00 06/18/18 15:45 Duoneb - NEB 1 amp RQID [facility] Administration Amlodipine Besylate 5 mg 06/17/18 09:00 06/18/18 11:04 Norvasc - GT 5 mg DAILY [facility] Administration Ascorbic Acid 500 mg 06/12/18 22:00 06/18/18 11:04 Vitamin C - GT 500 mg BID [facility] Administration Atorvastatin Calcium 20 mg 06/13/18 22:00 06/17/18 21:42 Lipitor - GT 20 mg HS [facility] Administration Budesonide 1 amp 06/18/18 08:00 06/18/18 07:45 Pulmicort 0.5 Mg Nebulizer - NEB 1 amp RBID [facility] Administration Calcium Carbonate/Cholecalciferol 2 tab 06/12/18 22:00 06/17/18 21:42 Os-Jamar 500+D - GT 2 tab HS [facility] Administration Enoxaparin Sodium 40 mg 06/13/18 10:00 06/18/18 11:01 Lovenox - SQ 40 mg DAILY [facility] Administration Piperacillin Sod/Tazobactam 50 mls @ 100 mls/hr 06/13/18 18:00 06/18/18 18:32 Sod 3.375 gm/ Dextrose IVPB 100 mls/hr Q8H-IV [facility] Administration Protocol Lactobacillus Acidophilus 1 tab 06/18/18 10:00 06/18/18 11:02 Bacid - PO 1 tab BID [facility] Administration Levetiracetam 1,500 mg 06/15/18 10:00 06/18/18 11:04 Keppra Injection - IVPB 1,500 mg BID [facility] Administration Methylprednisolone Sodium Succinate 40 mg 06/16/18 12:00 06/18/18 18:32 Solu-Medrol - IVPUSH 40 mg Q8H-IV [facility] Administration Metoclopramide HCl 5 mg 06/12/18 22:00 06/18/18 18:32 Reglan Oral Solution - GT 5 mg QID [facility] Administration Metoprolol Tartrate 50 mg 06/13/18 10:00 06/18/18 11:04 Lopressor - GT 50 mg DAILY [facility] Administration Metoprolol Tartrate 5 mg 06/15/18 09:49 Lopressor Injection - IVPB Q4H PRN HYPERTENSION Multi-Ingredient Ointment 1 applic 06/12/18 22:00 06/18/18 13:15 Zinc Oxide TP 1 applic TID [facility] Administration Pantoprazole Sodium 40 mg 06/13/18 10:00 06/18/18 11:04 Protonix Iv IVPUSH 40 mg DAILY [facility] Administration Phenobarbital 30 mg 06/12/18 22:00 06/18/18 11:05 Phenobarbital - GT 30 mg BID [facility] Administration Scopolamine HBr 1 patch 06/13/18 10:00 06/16/18 10:45 Transderm-Scop - TD 1 patch Q72H [facility] Administration Silver Sulfadiazine 1 applic 06/13/18 10:00 06/18/18 13:15 Silvadene - TP 1 applic DAILY [facility] Administration Topiramate 200 mg 06/12/18 22:00 06/18/18 11:01 Topamax - GT 200 mg BID [facility] Administration Topiramate 25 mg 06/13/18 10:00 06/18/18 11:04 Topamax - NR 25 mg DAILY [facility] Administration Valproate Sodium 750 mg 06/12/18 22:00 06/18/18 11:01 Depakene - GT 750 mg BID [facility] Administration Home Medications Medication Instructions Recorded Alendronate Sodium [Binosto] 70 mg GT WEEKLY 06/12/18 Arformoterol Tartrate [Brovana] 1 vial NEB BID 06/12/18 Calcium Carbonate/Vitamin D3 2 each GT HS 06/12/18 [Oystercal-D 500 mg-400 Unit Tb] Calcium Carbonate/Vitamin D3 2 tablet GT HS 06/12/18 [Oystercal-D 500 mg-400 Unit Tb] Lactulose 30 ml GT DAILY 06/12/18 Omeprazole 20 mg GT DAILY 06/12/18 Protein Supplement [Promod] 30 ml GT DAILY 06/12/18 RX: Amlodipine Besylate 2.5 mg GT DAILY 06/12/18 RX: Ascorbic Acid 500 mg GT BID 06/12/18 RX: Budesonide [Pulmicort 0.5 mg 1 vial NEB BID 06/12/18 Nebulizer -] RX: Ipratropium/Albuterol Sulfate 1 vial NEB QID 06/12/18 [Iprat-Albut 0.5-3(2.5) mg/3 ml] RX: Metoclopramide HCl 5 mg GT QID 06/12/18 RX: Metoprolol Tartrate 50 mg GT DAILY 06/12/18 RX: Phenobarbital 32.4 mg GT BID 06/12/18 RX: Scopolamine 1 each TD Q72H 06/12/18 RX: Topiramate 25 mg GT DAILY 06/12/18 RX: Topiramate 200 mg GT BID 06/12/18 RX: Zinc Oxide 1 applic TP TID 06/12/18 Scopolamine [Transderm-Scop] 1 each TD Q72H 06/12/18 Silver Sulfadiazine [Silvadene] 20 gm TP DAILY 06/12/18 Simvastatin 40 mg GT DAILY 06/12/18 Valproate Sodium [Depakene] 15 ml GT BID 06/12/18 levETIRAcetam [levETIRAcetam ORAL 15 ml GT BID 06/12/18 SUSPENSION] 06/12/18 17:30 Blood - Peripheral Venous Blood Culture - Preliminary NO GROWTH OBTAINED AFTER 72 HOURS, INCUBATION TO CONTINUE FOR 2 DAYS. 06/12/18 17:30 Blood - Peripheral Venous Blood Culture - Preliminary NO GROWTH OBTAINED AFTER 72 HOURS, INCUBATION TO CONTINUE FOR 2 DAYS. 06/12/18 18:49 Urine - Urine Clean Catch Urine Culture - Final Pseudomonas Aeruginosa 06/12/18 19:05 Urine For Antigen Detection Legionella Antigen - Final 06/12/18 19:05 Urine For Antigen Detection Streptococcus pneumoniae Antigen (M - Final ASSESSMENT AND PLAN: Patient is a 67 year old non-verbal female with a past medical history of anoxic brain injury, COPD ON [facility] home 02, and seizures who was brought to the hospital from [facility] for hypoxia with labored breathing. # Acute diarrhea stopped lactulose if doesn't improve then will send for cdiff.added Bacid #Acute hypoxic hypercapnic copd exacerbation: improving on Bipap, more awake and arousable today , setting adjustment per pulm., continue nebs. # Hypertensive urgency: better controlled now, on lopressor per Gtube # Aspiration Pneumonia: On zosyn continue , cx as above urine cx as above , ID on the case, dr Hickey. RSV and inf.A&B neg. # Acute UTI ; growing psudomonas sensitive to to IV zosyn. #LUE Fx: Xray positive for mildly nonhealing fx with some displacement, ortho on board . # Seizure hx: changed Keppras to IV , will switch her back to po keppras in am , continue rest of the meds. # Functional Quadriplegia continue to monitor the patient. continue Bipap prn xray of Abdomen noted pulm. and ortho consult appreciated
[2018-06-18] MEDS: ATORVASTATIN CA 20 MG TABLET (FP) GT SCH (21:42)
[2018-06-18] MEDS: levETIRAcetam 500 MG/5 ML ORAL SOLUTION (UNIT-DOSE CUPS) PO SCH (21:42)
[2018-06-18] MEDS: CALCIUM 500MG/VIT-D 200 UNITS COMBO TABLET (FP) GT SCH (21:42)
[2018-06-19] MEDS ORDERED: PIPERACILLIN/TAZOBACTAM 3.375 GM VIAL IVPB ONE ×3 (01:18→17:12)
[2018-06-19] MEDS ORDERED: DEXTROSE 5%-WATER - 50 ML IVPB ONE ×3 (01:19→17:12)
[2018-06-19] MEDS: methylPREDNISolone NA SUCC 40 MG/1 ML VIAL IVPUSH SCH ×3 (01:59→18:02)
[2018-06-19] MEDS: PIPERACILLIN/TAZOB 3.375 GM 3.375 GM in DEXTROSE 5%-WATER - 50 ML IVPB SCH ×3 (01:59→18:01)
[2018-06-19] MEDS: ZINC OXIDE 20% TOPICAL OINTMENT 30 GM TUBE TP SCH ×3 (06:28→23:55)
[2018-06-19 06:48] LABS: BASO % 0.1 % (0-2.0); HEMATOCRIT 34.1 % (32.4-45.2); HEMOGLOBIN 11.7 GM/dL (10.7-15.3); LYMPH % 9.1 % (8-40); MCH 31.2 pg (25.7-33.7); MCHC 34.3 g/dl (32.0-36.0); MEAN CELL VOLUME 91.1 fl (80-96); MEAN PLT VOLUME 7.4 fl (7.5-11.1); MONO % 3.7 % (3.8-10.2); NEUT % 87.1 % (42.8-82.8); PLATELET COUNT 286 K/MM3 (134-434); RBC 3.74 M/mm3 (3.60-5.2); WHITE BLOOD COUNT 5.9 K/mm3 (4.0-10.0)
[2018-06-19 07:23] LABS: ALBUMIN 2.2 g/dl (3.4-5.0); ALK PHOS 208 U/L (45-117); ANION GAP 6 MMOL/L (8-16); BILIRUBIN,TOTAL 0.1 mg/dL (0.2-1); BLOOD UREA NITROGEN 13 mg/dL (7-18); CALCIUM 8.1 mg/dL (8.5-10.1); CHLORIDE 98 mmol/L (98-107); CO2 38 mmol/L (21-32); CREATININE 0.4 mg/dL (0.55-1.3); GLUCOSE,RANDOM 135 mg/dL (74-106); MAGNESIUM 2.3 mg/dL (1.8-2.4); PHOSPHOROUS 1.7 mg/dL (2.5-4.9); SGOT/AST 8 U/L (15-37); SGPT/ALT 14 U/L (13-61); SODIUM 142 mmol/L (136-145); TOT PROT 5.8 g/dl (6.4-8.2)
[2018-06-19] MEDS ORDERED: POTASSIUM CHLORIDE TABS 20 MEQ TABLET.ER (FP) PO ONE (07:34)
[2018-06-19] MEDS: ALBUTEROL SO4 2.5/IPRATROPIUM 0.5 INH SOL 3 ML VIAL.NEB. NEB SCH ×4 (08:00→21:45)
[2018-06-19] MEDS ORDERED: NAPH,MB-DB/K PH,MBDB POWDER PACKET PO ONE (08:00)
--- NOTE | 2018-06-19 09:05 | PN ---
Progress Note, Physician History of Present Illness: no specific change continues to be poorly responsive still needing bipap - Current Medication List Current Medications: Active Medications Albuterol Sulfate (Ventolin 0.083% Nebulizer Soln -) 1 amp NEB Q4H PRN PRN Reason: SHORT OF BREATH/WHEEZING Albuterol/Ipratropium (Duoneb -) 1 amp NEB RQID [facility] Last Admin: 06/19/18 08:00 Dose: 1 amp Amlodipine Besylate (Norvasc -) 5 mg GT DAILY [facility] Last Admin: 06/18/18 11:04 Dose: 5 mg Ascorbic Acid (Vitamin C -) 500 mg GT BID [facility] Last Admin: 06/18/18 21:42 Dose: 500 mg Atorvastatin Calcium (Lipitor -) 20 mg GT HS [facility] Last Admin: 06/18/18 21:42 Dose: 20 mg Budesonide (Pulmicort 0.5 Mg Nebulizer -) 1 amp NEB RBID [facility] Last Admin: 06/18/18 20:50 Dose: 1 amp Calcium Carbonate/Cholecalciferol (Os-Jamar 500+D -) 2 tab GT HS [facility] Last Admin: 06/18/18 21:42 Dose: 2 tab Enoxaparin Sodium (Lovenox -) 40 mg SQ DAILY [facility] Last Admin: 06/18/18 11:01 Dose: 40 mg Piperacillin Sod/Tazobactam (Sod 3.375 gm/ Dextrose) 50 mls @ 100 mls/hr IVPB Q8H-IV [facility]; Protocol Last Admin: 06/19/18 01:59 Dose: 100 mls/hr Potassium Chloride (Potassium Chloride 10 Meq Premix Ivpb -) 10 meq in 100 mls @ 100 mls/hr IVPB Q60M [facility] Stop: 06/19/18 10:59 Lactobacillus Acidophilus (Bacid -) 1 tab PO BID [facility] Last Admin: 06/18/18 21:42 Dose: 1 tab Levetiracetam (Keppra Oral Solution -) 1,500 mg PO BID [facility] Last Admin: 06/18/18 21:42 Dose: 1,500 mg Methylprednisolone Sodium Succinate (Solu-Medrol -) 40 mg IVPUSH Q8H-IV [facility] Last Admin: 06/19/18 01:59 Dose: 40 mg Metoclopramide HCl (Reglan Oral Solution -) 5 mg GT QID [facility] Last Admin: 06/18/18 21:41 Dose: 5 mg Metoprolol Tartrate (Lopressor -) 50 mg GT DAILY [facility] Last Admin: 06/18/18 11:04 Dose: 50 mg Metoprolol Tartrate (Lopressor Injection -) 5 mg IVPB Q4H PRN PRN Reason: HYPERTENSION Multi-Ingredient Ointment (Zinc Oxide) 1 applic TP TID [facility] Last Admin: 06/19/18 06:28 Dose: 1 applic Pantoprazole Sodium (Protonix Iv) 40 mg IVPUSH DAILY [facility] Last Admin: 06/18/18 11:04 Dose: 40 mg Phenobarbital (Phenobarbital -) 30 mg GT BID [facility] Last Admin: 06/18/18 21:42 Dose: 30 mg Scopolamine HBr (Transderm-Scop -) 1 patch TD Q72H [facility] Last Admin: 06/16/18 10:45 Dose: 1 patch Silver Sulfadiazine (Silvadene -) 1 applic TP DAILY [facility] Last Admin: 06/18/18 13:15 Dose: 1 applic Topiramate (Topamax -) 200 mg GT BID [facility] Last Admin: 06/18/18 21:41 Dose: 200 mg Topiramate (Topamax -) 25 mg NR DAILY [facility] Last Admin: 06/18/18 11:04 Dose: 25 mg Valproate Sodium (Depakene -) 750 mg GT BID [facility] Last Admin: 06/18/18 21:41 Dose: 750 mg - Objective Vital Signs: Vital Signs Temperature 97.4 F L 06/19/18 04:00 Pulse Rate 72 06/19/18 04:00 Respiratory Rate 20 06/19/18 04:00 Blood Pressure 144/71 06/19/18 04:00 O2 Sat by Pulse Oximetry (%) 96 06/19/18 05:10 Constitutional: Yes: Other Cardiovascular: Yes: Regular Rate and Rhythm Respiratory: Yes: On BiPap Gastrointestinal: Yes: Normal Bowel Sounds, Soft Musculoskeletal: Yes: WNL Extremities: Yes: Other Neurological: Yes: Alert, Oriented Psychiatric: Yes: Alert, Oriented Labs: CBC, BMP 06/19/18 06:00 06/19/18 06:00 INR, PTT INR 1.02 (0.83-1.09) 06/12/18 16:07 Assessment/Plan Problem List - Problems (1) Acute respiratory failure with hypoxia Code(s): J96.01 - ACUTE RESPIRATORY FAILURE WITH HYPOXIA (2) Anoxic brain damage Code(s): G93.1 - ANOXIC BRAIN DAMAGE, NOT ELSEWHERE CLASSIFIED (3) Aspiration pneumonia Code(s): J69.0 - PNEUMONITIS DUE TO INHALATION OF FOOD AND VOMIT (4) COPD exacerbation Code(s): J44.1 - CHRONIC OBSTRUCTIVE PULMONARY DISEASE W (ACUTE) EXACERBATION (5) Fracture of left humerus Code(s): S42.302A - UNSP FRACTURE OF SHAFT OF HUMERUS, LEFT ARM, INIT (6) Functional quadriplegia Code(s): R53.2 - FUNCTIONAL QUADRIPLEGIA (7) HLD (hyperlipidemia) Code(s): E78.5 - HYPERLIPIDEMIA, UNSPECIFIED (8) HTN (hypertension) Code(s): I10 - ESSENTIAL (PRIMARY) HYPERTENSION (9) Scoliosis deformity of spine Code(s): M41.9 - SCOLIOSIS, UNSPECIFIED (10) Seizure disorder Code(s): G40.909 - EPILEPSY, UNSP, NOT INTRACTABLE, WITHOUT STATUS EPILEPTICUS (11) Shortness of breath Code(s): R06.02 - SHORTNESS OF BREATH Assessment/Plan PNA - suspected Aspiration UTI Respiratory distress - on BIPAP Fever Leukocytosis LUE fracture Anoxic brain injury Functional Quadriplegia HTN HLD Seizure d.o. COPD plan continue abx rest as per the team
[2018-06-19] MEDS: KCL 10 MEQ IVPB 10 MEQ/100 ML INFUS.BAG IVPB SCH ×3 (09:36→13:01)
[2018-06-19] MEDS: ENOXAPARIN NA (PORCINE) 40 MG/0.4 ML DISP.SYRIN SQ SCH (09:45)
[2018-06-19] MEDS: PANTOPRAZOLE SODIUM 40 MG VIAL IVPUSH SCH (09:46)
[2018-06-19] MEDS: PHENobarbital 30 MG TABLET GT SCH ×2 (09:48→23:54)
[2018-06-19] MEDS: LACTOBACILLUS ACIDOPHILUS 1 TABLET PO SCH ×2 (09:48→23:53)
[2018-06-19] MEDS: ASCORBIC ACID 500 MG TABLET (FP) GT SCH ×2 (09:48→23:54)
[2018-06-19] MEDS: METOCLOPRAMIDE HCL 5 MG/5 ML UNIT DOSE CUP GT SCH ×4 (09:48→23:54)
[2018-06-19] MEDS: METOPROLOL TARTRATE 50 MG TABLET (FP) GT SCH (09:48)
[2018-06-19] MEDS: VALPROATE SODIUM 250 MG/5 ML UNIT DOSE CUP GT SCH ×2 (09:48→23:54)
[2018-06-19] MEDS: amLODIPine BESYLATE 5 MG TABLET (FP) GT SCH (09:48)
[2018-06-19] MEDS: TOPIRAMATE 25 MG TABLET (FP) NR SCH (09:49)
[2018-06-19] MEDS: levETIRAcetam 500 MG/5 ML ORAL SOLUTION (UNIT-DOSE CUPS) PO SCH ×2 (09:49→23:54)
[2018-06-19] MEDS: TOPIRAMATE 200 MG TABLET (FP) GT SCH ×2 (09:49→23:53)
[2018-06-19] MEDS: SCOPOLAMINE HYDROBROMIDE 1 PATCH PATCH.TD72 TD SCH (09:50)
--- NOTE | 2018-06-19 11:41 | PN ---
Physical Exam: SUBJECTIVE: Patient seen and examined this AM. Remains on NIPPV. Tolerating tube feeds, No longer having Loose BMs. 1 BM overnight. No acute overnight events as per nursing. OBJECTIVE: Vital Signs Period Temp Pulse Resp BP Sys/Restrepo Pulse Ox Last 24 Hr 97.4 F-98.0 F 63-77 20-20 110-149/60-76 95-96 GENERAL: NAD HEAD: Microcephaly EYES: PERRL ENT: Moist mucous membranes NECK: No JVD LUNGS: Coarse breath sounds throughout, no wheezes, no crackles HEART: RRR, S1, S2 without murmur ABDOMEN: Soft, mildly distended, + bowel sounds, GTube present on the left without surrounding erythema or drainage EXTREMITIES: All extremities contracted, 1+ right pedal edema NEUROLOGICAL: Awake SKIN: Warm, Dry Laboratory Results - last 24 hr 06/19/18 06/19/18 06:00 06:00 WBC 5.9 RBC 3.74 Hgb 11.7 Hct 34.1 MCV 91.1 MCH 31.2 MCHC 34.3 RDW 14.0 Plt Count 286 MPV 7.4 L Absolute Neuts (auto) 5.1 Neutrophils % 87.1 H Lymphocytes % 9.1 Monocytes % 3.7 L D Eosinophils % 0.0 Basophils % 0.1 Nucleated RBC % 0 Sodium 142 Potassium 3.0 L Chloride 98 Carbon Dioxide 38 H Anion Gap 6 L BUN 13 Creatinine 0.4 L Creat Clearance w eGFR 160.19 Random Glucose 135 H Calcium 8.1 L Phosphorus 1.7 L Magnesium 2.3 Total Bilirubin 0.1 L AST 8 L ALT 14 Alkaline Phosphatase 208 H Total Protein 5.8 L Albumin 2.2 L Microbiology 06/12/18 17:30 Blood - Peripheral Venous Blood Culture - Final NO GROWTH AFTER 5 DAYS INCUBATION 06/12/18 17:30 Blood - Peripheral Venous Blood Culture - Final NO GROWTH AFTER 5 DAYS INCUBATION 06/12/18 18:49 Urine - Urine Clean Catch Urine Culture - Final Pseudomonas Aeruginosa 06/12/18 19:05 Urine For Antigen Detection Legionella Antigen - Final 06/12/18 19:05 Urine For Antigen Detection Streptococcus pneumoniae Antigen (M - Final Active Medications Albuterol Sulfate (Ventolin 0.083% Nebulizer Soln -) 1 amp NEB Q4H PRN PRN Reason: SHORT OF BREATH/WHEEZING Albuterol/Ipratropium (Duoneb -) 1 amp NEB RQID [facility] Last Admin: 06/19/18 08:00 Dose: 1 amp Amlodipine Besylate (Norvasc -) 5 mg GT DAILY [facility] Last Admin: 06/19/18 09:48 Dose: 5 mg Ascorbic Acid (Vitamin C -) 500 mg GT BID [facility] Last Admin: 06/19/18 09:48 Dose: 500 mg Atorvastatin Calcium (Lipitor -) 20 mg GT HS [facility] Last Admin: 06/18/18 21:42 Dose: 20 mg Budesonide (Pulmicort 0.5 Mg Nebulizer -) 1 amp NEB RBID [facility] Last Admin: 06/18/18 20:50 Dose: 1 amp Calcium Carbonate/Cholecalciferol (Os-Jamar 500+D -) 2 tab GT [facility] Last Admin: 06/18/18 21:42 Dose: 2 tab Enoxaparin Sodium (Lovenox -) 40 mg SQ DAILY [facility] Last Admin: 06/19/18 09:45 Dose: 40 mg Piperacillin Sod/Tazobactam (Sod 3.375 gm/ Dextrose) 50 mls @ 100 mls/hr IVPB Q8H-IV [facility]; Protocol Last Admin: 06/19/18 09:37 Dose: 100 mls/hr Lactobacillus Acidophilus (Bacid -) 1 tab PO BID [facility] Last Admin: 06/19/18 09:48 Dose: 1 tab Levetiracetam (Keppra Oral Solution -) 1,500 mg PO BID [facility] Last Admin: 06/19/18 09:49 Dose: 1,500 mg Methylprednisolone Sodium Succinate (Solu-Medrol -) 40 mg IVPUSH Q8H-IV [facility] Last Admin: 06/19/18 09:47 Dose: 40 mg Metoclopramide HCl (Reglan Oral Solution -) 5 mg GT QID [facility] Last Admin: 06/19/18 09:48 Dose: 5 mg Metoprolol Tartrate (Lopressor -) 50 mg GT DAILY [facility] Last Admin: 06/19/18 09:48 Dose: 50 mg Metoprolol Tartrate (Lopressor Injection -) 5 mg IVPB Q4H PRN PRN Reason: HYPERTENSION Multi-Ingredient Ointment (Zinc Oxide) 1 applic TP TID [facility] Last Admin: 06/19/18 06:28 Dose: 1 applic Pantoprazole Sodium (Protonix Iv) 40 mg IVPUSH DAILY [facility] Last Admin: 06/19/18 09:46 Dose: 40 mg Phenobarbital (Phenobarbital -) 30 mg GT BID [facility] Last Admin: 06/19/18 09:48 Dose: 30 mg Scopolamine HBr (Transderm-Scop -) 1 patch TD Q72H [facility] Last Admin: 06/19/18 09:50 Dose: 1 patch Silver Sulfadiazine (Silvadene -) 1 applic TP DAILY [facility] Last Admin: 06/18/18 13:15 Dose: 1 applic Topiramate (Topamax -) 200 mg GT BID [facility] Last Admin: 06/19/18 09:49 Dose: 200 mg Topiramate (Topamax -) 25 mg NR DAILY [facility] Last Admin: 06/19/18 09:49 Dose: 25 mg Valproate Sodium (Depakene -) 750 mg GT BID [facility] Last Admin: 06/19/18 09:48 Dose: 750 mg IMAGING: -Left Humerus: 2 views of the left humerus reveal a healing fracture deformity of the mid shaft of the left humerus. There is some displacement at the fracture site as shown in one view. The imaging is available for review. -CXR (06/12): No significant interval change or gross acute lung disease is present. -CXR (06/15): Single AP view of the chest has been submitted. Since 06/12/2018, again noted is a scoliosis with convexity to the left, prominent mediastinum and some chronic pleural reaction and atelectasis at the left base. There is elevated right hemidiaphragm with distended bowel. Correlation recommended. -KUB: A single view the abdomen has been obtained. There is motion artifact, G- tube, abdominal distention, motion artifact, degenerative changes and a prior left hip stabilization with hardware. Distended bowel could represent an early obstructive process. For more complete evaluation, better imaging with CT may be of help ASSESSMENT/PLAN: 67 y/o non-verbal Female with PMHx of anoxic brain injury, COPD (on 4L at home) , seizures presented with respiratory distress and found to be in Sepsis #Sepsis -Urine cx--Pseudomonas Aeruginosa -Piperacillin/Tazobactam 3.375 Q6H (Started on 06/12) -ID (Dr. Hickey) consulted, appreciate rec's -Keep HOB elevated -Aspiration precautions #COPD -Continue NIPPV (15/07//40%) -IV Methylprednisolone 40mg Q8H -Albuterol/Ipratropium, Arformoterol, Budesonide -Supplemental O2 to maintain SpO2 88-92% -Pulm consulted #Chronic L arm fracture -Continue to use brace #Hypertension -IV Metoprolol Tartrate 5mg Q4H PRN added given episodes of SBP > 170 -Metoprolol Tartrate 50 mg GT Daily, Amlodipine to 5mg GT Daily #HLD -Atorvastatin 20mg GT HS #GERD -Metoclopramide, Pantoprazole, Bacid -Hold Lactulose #Seizures -Levetiracetam, Valproate, Topiramate, Phenobarbital #FEN -No standing fluids -Monitor lytes -Tube Feed Jevity 1.5 #PPx -Lovenox Visit type - Emergency Visit Emergency Visit: Yes ED Registration Date: 06/12/18 Care time: The patient presented to the Emergency Department on the above date and was hospitalized for further evaluation of their emergent condition. - New Patient This patient is new to me today: No - Critical Care Critical Care patient: No - Discharge Referral Referred to [facility] No
[2018-06-19] MEDS: SILVER SULFADIAZINE 1% TOP CREAM 50 GM JAR TP SCH (13:02)
--- NOTE | 2018-06-19 13:13 | PN ---
Progress Note, Physician History of Present Illness: pulmonary lethargic on bipap,-resp distress - Current Medication List Current Medications: Active Medications Albuterol Sulfate (Ventolin 0.083% Nebulizer Soln -) 1 amp NEB Q4H PRN PRN Reason: SHORT OF BREATH/WHEEZING Albuterol/Ipratropium (Duoneb -) 1 amp NEB RQID [facility] Last Admin: 06/19/18 08:00 Dose: 1 amp Amlodipine Besylate (Norvasc -) 5 mg GT DAILY [facility] Last Admin: 06/19/18 09:48 Dose: 5 mg Ascorbic Acid (Vitamin C -) 500 mg GT BID [facility] Last Admin: 06/19/18 09:48 Dose: 500 mg Atorvastatin Calcium (Lipitor -) 20 mg GT HS [facility] Last Admin: 06/18/18 21:42 Dose: 20 mg Budesonide (Pulmicort 0.5 Mg Nebulizer -) 1 amp NEB RBID [facility] Last Admin: 06/18/18 20:50 Dose: 1 amp Calcium Carbonate/Cholecalciferol (Os-Jamar 500+D -) 2 tab GT HS [facility] Last Admin: 06/18/18 21:42 Dose: 2 tab Enoxaparin Sodium (Lovenox -) 40 mg SQ DAILY [facility] Last Admin: 06/19/18 09:45 Dose: 40 mg Piperacillin Sod/Tazobactam (Sod 3.375 gm/ Dextrose) 50 mls @ 100 mls/hr IVPB Q8H-IV [facility]; Protocol Last Admin: 06/19/18 09:37 Dose: 100 mls/hr Lactobacillus Acidophilus (Bacid -) 1 tab PO BID [facility] Last Admin: 06/19/18 09:48 Dose: 1 tab Levetiracetam (Keppra Oral Solution -) 1,500 mg PO BID [facility] Last Admin: 06/19/18 09:49 Dose: 1,500 mg Methylprednisolone Sodium Succinate (Solu-Medrol -) 40 mg IVPUSH Q8H-IV [facility] Last Admin: 06/19/18 09:47 Dose: 40 mg Metoclopramide HCl (Reglan Oral Solution -) 5 mg GT QID [facility] Last Admin: 06/19/18 13:02 Dose: 5 mg Metoprolol Tartrate (Lopressor -) 50 mg GT DAILY [facility] Last Admin: 06/19/18 09:48 Dose: 50 mg Metoprolol Tartrate (Lopressor Injection -) 5 mg IVPB Q4H PRN PRN Reason: HYPERTENSION Multi-Ingredient Ointment (Zinc Oxide) 1 applic TP TID [facility] Last Admin: 06/19/18 13:02 Dose: 1 applic Pantoprazole Sodium (Protonix Iv) 40 mg IVPUSH DAILY [facility] Last Admin: 06/19/18 09:46 Dose: 40 mg Phenobarbital (Phenobarbital -) 30 mg GT BID [facility] Last Admin: 06/19/18 09:48 Dose: 30 mg Scopolamine HBr (Transderm-Scop -) 1 patch TD Q72H [facility] Last Admin: 06/19/18 09:50 Dose: 1 patch Silver Sulfadiazine (Silvadene -) 1 applic TP DAILY [facility] Last Admin: 06/19/18 13:02 Dose: 1 applic Topiramate (Topamax -) 200 mg GT BID [facility] Last Admin: 06/19/18 09:49 Dose: 200 mg Topiramate (Topamax -) 25 mg NR DAILY [facility] Last Admin: 06/19/18 09:49 Dose: 25 mg Valproate Sodium (Depakene -) 750 mg GT BID [facility] Last Admin: 06/19/18 09:48 Dose: 750 mg - Objective Vital Signs: Vital Signs Temperature 97.4 F L 06/19/18 04:00 Pulse Rate 72 06/19/18 04:00 Respiratory Rate 20 06/19/18 04:00 Blood Pressure 144/71 06/19/18 04:00 O2 Sat by Pulse Oximetry (%) 96 06/19/18 05:10 Constitutional: Yes: Well Nourished, Other (lethargic) Eyes: Yes: WNL HENT: Yes: WNL Neck: Yes: WNL Cardiovascular: Yes: Regular Rate and Rhythm, S1, S2 Respiratory: Yes: Rhonchi (scattered rhonchi) Gastrointestinal: Yes: Normal Bowel Sounds, Soft Extremities: Yes: Shortened Edema: No Labs: CBC, BMP 06/19/18 06:00 06/19/18 06:00 INR, PTT INR 1.02 (0.83-1.09) 06/12/18 16:07 Assessment/Plan Problem List - Problems (1) Acute and chronic respiratory failure with hypoxia Code(s): J96.21 - ACUTE AND CHRONIC RESPIRATORY FAILURE WITH HYPOXIA (2) COPD exacerbation Code(s): J44.1 - CHRONIC OBSTRUCTIVE PULMONARY DISEASE W (ACUTE) EXACERBATION (3) Functional quadriplegia Code(s): R53.2 - FUNCTIONAL QUADRIPLEGIA (4) HLD (hyperlipidemia) Code(s): E78.5 - HYPERLIPIDEMIA, UNSPECIFIED (5) HTN (hypertension) Code(s): I10 - ESSENTIAL (PRIMARY) HYPERTENSION Assessment/Plan Acute on Chronic Hypoxic Respiratory Failure r/o Pneumonia Acute COPD Exacerbation Anoxic Brain Injury Seizure Disorder - antibiotics as per id - BiPAP - medrol same dose - inhaled bronchodilators standing and PRN - O2 to keep SpO2 >90% - aspiration precautions - DVT prophylaxis - replete kathe SUAREZ
--- NOTE | 2018-06-19 17:53 | PN ---
Teaching Attending Note Name of Resident: Melania Marin ATTENDING PHYSICIAN STATEMENT I saw and evaluated the patient. I reviewed the resident's note and discussed the case with the resident. I agree with the resident's findings and plan as documented. SUBJECTIVE: No acute events overnight. Status unchanged, remains on BIPAP. OBJECTIVE: Vital Signs - 24 hr 06/18/18 06/18/18 06/18/18 18:00 20:30 20:40 Temperature 98.0 F Pulse Rate 76 77 Respiratory 20 20 Rate Blood Pressure 110/60 149/76 O2 Sat by Pulse 96 Oximetry (%) 06/18/18 06/19/18 06/19/18 21:00 00:00 04:00 Temperature 97.4 F L Pulse Rate 72 Respiratory 20 Rate Blood Pressure 144/71 O2 Sat by Pulse 96 96 Oximetry (%) 06/19/18 06/19/18 06/19/18 05:10 09:00 14:25 Temperature 98.5 F Pulse Rate 88 Respiratory 21 H 21 H Rate Blood Pressure 148/79 O2 Sat by Pulse 96 97 Oximetry (%) PHYSICAL EXAM: GENERAL: non-verbal, lethargic, lying in bed on Bipap. NECK: Trachea midline, supple CVS: s1s2, RRR, no m/r/g LUNGS: Decreased BS bilaterally anteriorly, no accessory muscle use ABDOMEN: Soft, NT/ND, NABS, +Gtube EXTREMITIES: 2+ pulses, no edema left humural fx, in a cast Current Medications Generic Name Dose Route Start Last Admin Trade Name Freq PRN Reason Stop Dose Admin Albuterol Sulfate 1 amp 06/16/18 11:52 Ventolin 0.083% Nebulizer Soln - NEB Q4H PRN SHORT OF BREATH/WHEEZING Albuterol/Ipratropium 1 amp 06/16/18 12:00 06/19/18 11:55 Duoneb - NEB 1 amp RQID [facility] Administration Amlodipine Besylate 5 mg 06/17/18 09:00 06/19/18 09:48 Norvasc - GT 5 mg DAILY [facility] Administration Ascorbic Acid 500 mg 06/12/18 22:00 06/19/18 09:48 Vitamin C - GT 500 mg BID [facility] Administration Atorvastatin Calcium 20 mg 06/13/18 22:00 06/18/18 21:42 Lipitor - GT 20 mg HS [facility] Administration Budesonide 1 amp 06/18/18 08:00 06/18/18 20:50 Pulmicort 0.5 Mg Nebulizer - NEB 1 amp RBID [facility] Administration Calcium Carbonate/Cholecalciferol 2 tab 06/12/18 22:00 06/18/18 21:42 Os-Jamar 500+D - GT 2 tab HS [facility] Administration Enoxaparin Sodium 40 mg 06/13/18 10:00 06/19/18 09:45 Lovenox - SQ 40 mg DAILY [facility] Administration Piperacillin Sod/Tazobactam 50 mls @ 100 mls/hr 06/13/18 18:00 06/19/18 09:37 Sod 3.375 gm/ Dextrose IVPB 100 mls/hr Q8H-IV [facility] Administration Protocol Lactobacillus Acidophilus 1 tab 06/18/18 10:00 06/19/18 09:48 Bacid - PO 1 tab BID [facility] Administration Levetiracetam 1,500 mg 06/18/18 22:00 06/19/18 09:49 Keppra Oral Solution - PO 1,500 mg BID [facility] Administration Methylprednisolone Sodium Succinate 40 mg 06/16/18 12:00 06/19/18 09:47 Solu-Medrol - IVPUSH 40 mg Q8H-IV [facility] Administration Metoclopramide HCl 5 mg 06/12/18 22:00 06/19/18 13:02 Reglan Oral Solution - GT 5 mg QID [facility] Administration Metoprolol Tartrate 50 mg 06/13/18 10:00 06/19/18 09:48 Lopressor - GT 50 mg DAILY [facility] Administration Metoprolol Tartrate 5 mg 06/15/18 09:49 Lopressor Injection - IVPB Q4H PRN HYPERTENSION Multi-Ingredient Ointment 1 applic 06/12/18 22:00 06/19/18 13:02 Zinc Oxide TP 1 applic TID [facility] Administration Pantoprazole Sodium 40 mg 06/13/18 10:00 06/19/18 09:46 Protonix Iv IVPUSH 40 mg DAILY [facility] Administration Phenobarbital 30 mg 06/12/18 22:00 06/19/18 09:48 Phenobarbital - GT 30 mg BID [facility] Administration Scopolamine HBr 1 patch 06/13/18 10:00 06/19/18 09:50 Transderm-Scop - TD 1 patch Q72H [facility] Administration Silver Sulfadiazine 1 applic 06/13/18 10:00 06/19/18 13:02 Silvadene - TP 1 applic DAILY [facility] Administration Topiramate 200 mg 06/12/18 22:00 06/19/18 09:49 Topamax - GT 200 mg BID [facility] Administration Topiramate 25 mg 06/13/18 10:00 06/19/18 09:49 Topamax - NR 25 mg DAILY [facility] Administration Valproate Sodium 750 mg 06/12/18 22:00 06/19/18 09:48 Depakene - GT 750 mg BID [facility] Administration Laboratory Results - last 24 hr 06/19/18 06/19/18 06:00 06:00 WBC 5.9 RBC 3.74 Hgb 11.7 Hct 34.1 MCV 91.1 MCH 31.2 MCHC 34.3 RDW 14.0 Plt Count 286 MPV 7.4 L Absolute Neuts (auto) 5.1 Neutrophils % 87.1 H Lymphocytes % 9.1 Monocytes % 3.7 L D Eosinophils % 0.0 Basophils % 0.1 Nucleated RBC % 0 Sodium 142 Potassium 3.0 L Chloride 98 Carbon Dioxide 38 H Anion Gap 6 L BUN 13 Creatinine 0.4 L Creat Clearance w eGFR 160.19 Random Glucose 135 H Calcium 8.1 L Phosphorus 1.7 L Magnesium 2.3 Total Bilirubin 0.1 L AST 8 L ALT 14 Alkaline Phosphatase 208 H Total Protein 5.8 L Albumin 2.2 L Microbiology 06/12/18 17:30 Blood - Peripheral Venous Blood Culture - Final NO GROWTH AFTER 5 DAYS INCUBATION 06/12/18 17:30 Blood - Peripheral Venous Blood Culture - Final NO GROWTH AFTER 5 DAYS INCUBATION 06/12/18 18:49 Urine - Urine Clean Catch Urine Culture - Final Pseudomonas Aeruginosa 06/12/18 19:05 Urine For Antigen Detection Legionella Antigen - Final 06/12/18 19:05 Urine For Antigen Detection Streptococcus pneumoniae Antigen (M - Final ALL IMAGING REPORTS REVIEWED ASSESSMENT: Acute on Chronic Hypoxic Respiratory Failure Aspiration Pneumonia Acute COPD Exacerbation Pseudomonas UTI Left Humeral Fracture Hypokalemia Anoxic Brain Injury Seizure Disorder HTN Functional Quadriplegia PLAN: -c/w IV steroids, taper per pulm -BIPAP PRN -inhaled nebs -IV antibiotics, patient on zosyn(covers lungs and urine) -replete K and monitor -c/w lopressor and norvasc -c/w keppra/depakote/topamax/phenobarb -ID, ortho, and pulm following -aspiration precautions -ortho recs: - Physical therapy: WBAT LUE; Free ROM of the left shoulder as tolerated with the brace. She should continue with the brace until 06/29/18 and then the brace can be discontinued. Elbow, wrist, and finger ROM. - Needs daily skin checks under brace - Pain control - Decubitus precautions (heel/sacrum) - follow up in office in 1-2 weeks [phone].
[2018-06-19] MEDS: BUDESONIDE 0.5 MG/2 ML INH SUSP VIAL NEB SCH (21:46)
[2018-06-19] MEDS: ATORVASTATIN CA 20 MG TABLET (FP) GT SCH (23:54)
[2018-06-19] MEDS: CALCIUM 500MG/VIT-D 200 UNITS COMBO TABLET (FP) GT SCH (23:54)
[2018-06-20] MEDS ORDERED: DEXTROSE 5%-WATER - 50 ML IVPB ONE ×3 (01:12→16:56)
[2018-06-20] MEDS ORDERED: PIPERACILLIN/TAZOBACTAM 3.375 GM VIAL IVPB ONE ×3 (01:12→16:56)
[2018-06-20] MEDS: PIPERACILLIN/TAZOB 3.375 GM 3.375 GM in DEXTROSE 5%-WATER - 50 ML IVPB SCH ×3 (01:21→17:43)
[2018-06-20] MEDS: methylPREDNISolone NA SUCC 40 MG/1 ML VIAL IVPUSH SCH ×3 (01:21→17:41)
[2018-06-20] MEDS: ZINC OXIDE 20% TOPICAL OINTMENT 30 GM TUBE TP SCH ×3 (06:10→22:48)
[2018-06-20 07:15] LABS: ANION GAP 5 MMOL/L (8-16); BLOOD UREA NITROGEN 11 mg/dL (7-18); CALCIUM 8.5 mg/dL (8.5-10.1); CHLORIDE 97 mmol/L (98-107); CO2 35 mmol/L (21-32); CREATININE 0.3 mg/dL (0.55-1.3); GLUCOSE,RANDOM 122 mg/dL (74-106); MAGNESIUM 2.4 mg/dL (1.8-2.4); PHOSPHOROUS 1.8 mg/dL (2.5-4.9); POTASSIUM 4.2 mmol/L (3.5-5.1); SODIUM 138 mmol/L (136-145)
[2018-06-20] MEDS: ALBUTEROL SO4 2.5/IPRATROPIUM 0.5 INH SOL 3 ML VIAL.NEB. NEB SCH ×4 (07:40→20:19)
[2018-06-20] MEDS: BUDESONIDE 0.5 MG/2 ML INH SUSP VIAL NEB SCH ×3 (07:50→20:18)
[2018-06-20] MEDS ORDERED: NAPH,MB-DB/K PH,MBDB POWDER PACKET PO ONE (08:15)
[2018-06-20] MEDS: METOPROLOL TARTRATE 50 MG TABLET (FP) GT SCH ×2 (10:41→22:20)
[2018-06-20] MEDS: PHENobarbital 30 MG TABLET GT SCH ×2 (10:41→22:19)
[2018-06-20] MEDS: VALPROATE SODIUM 250 MG/5 ML UNIT DOSE CUP GT SCH ×2 (10:41→22:20)
[2018-06-20] MEDS: amLODIPine BESYLATE 5 MG TABLET (FP) GT SCH (10:41)
[2018-06-20] MEDS: METOCLOPRAMIDE HCL 5 MG/5 ML UNIT DOSE CUP GT SCH ×4 (10:42→22:20)
[2018-06-20] MEDS: PANTOPRAZOLE SODIUM 40 MG VIAL IVPUSH SCH (10:43)
[2018-06-20] MEDS: levETIRAcetam 500 MG/5 ML ORAL SOLUTION (UNIT-DOSE CUPS) PO SCH ×2 (10:46→22:20)
[2018-06-20] MEDS: TOPIRAMATE 25 MG TABLET (FP) NR SCH (10:46)
[2018-06-20] MEDS: ASCORBIC ACID 500 MG TABLET (FP) GT SCH ×2 (10:46→22:19)
[2018-06-20] MEDS: TOPIRAMATE 200 MG TABLET (FP) GT SCH ×2 (10:47→22:19)
[2018-06-20] MEDS: LACTOBACILLUS ACIDOPHILUS 1 TABLET PO SCH ×2 (10:49→22:19)
[2018-06-20] MEDS: ENOXAPARIN NA (PORCINE) 40 MG/0.4 ML DISP.SYRIN SQ SCH ×2 (10:50→11:55)
[2018-06-20] MEDS: SILVER SULFADIAZINE 1% TOP CREAM 50 GM JAR TP SCH (10:57)
--- NOTE | 2018-06-20 11:11 | PN ---
Progress Note, Physician History of Present Illness: patient continues to be on bipap still requiring it - Current Medication List Current Medications: Active Medications Albuterol Sulfate (Ventolin 0.083% Nebulizer Soln -) 1 amp NEB Q4H PRN PRN Reason: SHORT OF BREATH/WHEEZING Albuterol/Ipratropium (Duoneb -) 1 amp NEB RQID [facility] Last Admin: 06/20/18 07:40 Dose: 1 amp Amlodipine Besylate (Norvasc -) 5 mg GT DAILY [facility] Last Admin: 06/20/18 10:41 Dose: 5 mg Ascorbic Acid (Vitamin C -) 500 mg GT BID [facility] Last Admin: 06/20/18 10:46 Dose: 500 mg Atorvastatin Calcium (Lipitor -) 20 mg GT HS [facility] Last Admin: 06/19/18 23:54 Dose: 20 mg Budesonide (Pulmicort 0.5 Mg Nebulizer -) 1 amp NEB RBID [facility] Last Admin: 06/20/18 10:00 Dose: Not Given Calcium Carbonate/Cholecalciferol (Os-Jamar 500+D -) 2 tab GT HS [facility] Last Admin: 06/19/18 23:54 Dose: 2 tab Piperacillin Sod/Tazobactam (Sod 3.375 gm/ Dextrose) 50 mls @ 100 mls/hr IVPB Q8H-IV [facility]; Protocol Last Admin: 06/20/18 10:41 Dose: 100 mls/hr Lactobacillus Acidophilus (Bacid -) 1 tab PO BID [facility] Last Admin: 06/20/18 10:49 Dose: 1 tab Levetiracetam (Keppra Oral Solution -) 1,500 mg PO BID [facility] Last Admin: 06/20/18 10:46 Dose: 1,500 mg Methylprednisolone Sodium Succinate (Solu-Medrol -) 40 mg IVPUSH Q8H-IV [facility] Last Admin: 06/20/18 10:39 Dose: 40 mg Metoclopramide HCl (Reglan Oral Solution -) 5 mg GT QID [facility] Last Admin: 06/20/18 10:42 Dose: 5 mg Metoprolol Tartrate (Lopressor -) 50 mg GT DAILY [facility] Last Admin: 06/20/18 10:41 Dose: 50 mg Metoprolol Tartrate (Lopressor Injection -) 5 mg IVPB Q4H PRN PRN Reason: HYPERTENSION Multi-Ingredient Ointment (Zinc Oxide) 1 applic TP TID [facility] Last Admin: 06/20/18 06:10 Dose: 1 applic Pantoprazole Sodium (Protonix Iv) 40 mg IVPUSH DAILY [facility] Last Admin: 06/20/18 10:43 Dose: 40 mg Phenobarbital (Phenobarbital -) 30 mg GT BID [facility] Last Admin: 06/20/18 10:41 Dose: 30 mg Scopolamine HBr (Transderm-Scop -) 1 patch TD Q72H [facility] Last Admin: 06/19/18 09:50 Dose: 1 patch Silver Sulfadiazine (Silvadene -) 1 applic TP DAILY [facility] Last Admin: 06/20/18 10:57 Dose: 1 applic Topiramate (Topamax -) 200 mg GT BID [facility] Last Admin: 06/20/18 10:47 Dose: 200 mg Topiramate (Topamax -) 25 mg NR DAILY [facility] Last Admin: 06/20/18 10:46 Dose: 25 mg Valproate Sodium (Depakene -) 750 mg GT BID [facility] Last Admin: 06/20/18 10:41 Dose: 750 mg - Objective Vital Signs: Vital Signs Temperature 98.5 F 06/20/18 09:36 Pulse Rate 71 06/20/18 09:36 Respiratory Rate 21 H 06/20/18 09:36 Blood Pressure 138/68 06/20/18 09:36 O2 Sat by Pulse Oximetry (%) 97 06/20/18 06:04 Constitutional: Yes: No Distress, Calm Cardiovascular: Yes: Regular Rate and Rhythm Respiratory: Yes: Mechanically Ventilated, Poor Air Entry Gastrointestinal: Yes: Normal Bowel Sounds, Soft Musculoskeletal: Yes: WNL Extremities: Yes: Other Neurological: Yes: Alert Psychiatric: Yes: Other Labs: CBC, BMP 06/19/18 06:00 06/20/18 06:00 INR, PTT INR 1.02 (0.83-1.09) 06/12/18 16:07 Assessment/Plan Problem List - Problems (1) Acute respiratory failure with hypoxia Code(s): J96.01 - ACUTE RESPIRATORY FAILURE WITH HYPOXIA (2) Anoxic brain damage Code(s): G93.1 - ANOXIC BRAIN DAMAGE, NOT ELSEWHERE CLASSIFIED (3) Aspiration pneumonia Code(s): J69.0 - PNEUMONITIS DUE TO INHALATION OF FOOD AND VOMIT (4) COPD exacerbation Code(s): J44.1 - CHRONIC OBSTRUCTIVE PULMONARY DISEASE W (ACUTE) EXACERBATION (5) Fracture of left humerus Code(s): S42.302A - UNSP FRACTURE OF SHAFT OF HUMERUS, LEFT ARM, INIT (6) Functional quadriplegia Code(s): R53.2 - FUNCTIONAL QUADRIPLEGIA (7) HLD (hyperlipidemia) Code(s): E78.5 - HYPERLIPIDEMIA, UNSPECIFIED (8) HTN (hypertension) Code(s): I10 - ESSENTIAL (PRIMARY) HYPERTENSION (9) Scoliosis deformity of spine Code(s): M41.9 - SCOLIOSIS, UNSPECIFIED (10) Seizure disorder Code(s): G40.909 - EPILEPSY, UNSP, NOT INTRACTABLE, WITHOUT STATUS EPILEPTICUS (11) Shortness of breath Code(s): R06.02 - SHORTNESS OF BREATH uti Assessment/Plan PNA - suspected Aspiration UTI Respiratory distress - on BIPAP Fever Leukocytosis LUE fracture Anoxic brain injury Functional Quadriplegia HTN HLD Seizure d.o. COPD plan continue abx can stop abx after today dose resp support rest as per pul team
--- NOTE | 2018-06-20 11:41 | PN ---
Progress Note (short form) - Note Progress Note: Lethargic on NIPPV support but breathing is non-labored. No change in overall condition. Still with copious secretions. Intake & Output 06/17/18 06/18/18 06/19/18 06/20/18 23:59 23:59 23:59 23:59 Intake Total 50 1850 2260 Balance 50 1850 2260 Last Vital Signs Temp Pulse Resp BP Pulse Ox 98.5 F 71 21 H 138/68 97 06/20/18 09:36 06/20/18 09:36 06/20/18 09:36 06/20/18 09:36 06/20/18 06:04 Active Medications Albuterol Sulfate (Ventolin 0.083% Nebulizer Soln -) 1 amp NEB Q4H PRN PRN Reason: SHORT OF BREATH/WHEEZING Albuterol/Ipratropium (Duoneb -) 1 amp NEB RQID [facility] Last Admin: 06/20/18 07:40 Dose: 1 amp Amlodipine Besylate (Norvasc -) 5 mg GT DAILY [facility] Last Admin: 06/20/18 10:41 Dose: 5 mg Ascorbic Acid (Vitamin C -) 500 mg GT BID [facility] Last Admin: 06/20/18 10:46 Dose: 500 mg Atorvastatin Calcium (Lipitor -) 20 mg GT HS [facility] Last Admin: 06/19/18 23:54 Dose: 20 mg Budesonide (Pulmicort 0.5 Mg Nebulizer -) 1 amp NEB RBID [facility] Last Admin: 06/20/18 10:00 Dose: Not Given Calcium Carbonate/Cholecalciferol (Os-Jamar 500+D -) 2 tab GT HS [facility] Last Admin: 06/19/18 23:54 Dose: 2 tab Piperacillin Sod/Tazobactam (Sod 3.375 gm/ Dextrose) 50 mls @ 100 mls/hr IVPB Q8H-IV [facility]; Protocol Last Admin: 06/20/18 10:41 Dose: 100 mls/hr Lactobacillus Acidophilus (Bacid -) 1 tab PO BID [facility] Last Admin: 06/20/18 10:49 Dose: 1 tab Levetiracetam (Keppra Oral Solution -) 1,500 mg PO BID [facility] Last Admin: 06/20/18 10:46 Dose: 1,500 mg Methylprednisolone Sodium Succinate (Solu-Medrol -) 40 mg IVPUSH Q8H-IV [facility] Last Admin: 06/20/18 10:39 Dose: 40 mg Metoclopramide HCl (Reglan Oral Solution -) 5 mg GT QID [facility] Last Admin: 06/20/18 10:42 Dose: 5 mg Metoprolol Tartrate (Lopressor -) 50 mg GT DAILY [facility] Last Admin: 06/20/18 10:41 Dose: 50 mg Metoprolol Tartrate (Lopressor Injection -) 5 mg IVPB Q4H PRN PRN Reason: HYPERTENSION Multi-Ingredient Ointment (Zinc Oxide) 1 applic TP TID [facility] Last Admin: 06/20/18 06:10 Dose: 1 applic Pantoprazole Sodium (Protonix Iv) 40 mg IVPUSH DAILY [facility] Last Admin: 06/20/18 10:43 Dose: 40 mg Phenobarbital (Phenobarbital -) 30 mg GT BID [facility] Last Admin: 06/20/18 10:41 Dose: 30 mg Scopolamine HBr (Transderm-Scop -) 1 patch TD Q72H [facility] Last Admin: 06/19/18 09:50 Dose: 1 patch Silver Sulfadiazine (Silvadene -) 1 applic TP DAILY [facility] Last Admin: 06/20/18 10:57 Dose: 1 applic Topiramate (Topamax -) 200 mg GT BID [facility] Last Admin: 06/20/18 10:47 Dose: 200 mg Topiramate (Topamax -) 25 mg NR DAILY [facility] Last Admin: 06/20/18 10:46 Dose: 25 mg Valproate Sodium (Depakene -) 750 mg GT BID [facility] Last Admin: 06/20/18 10:41 Dose: 750 mg Constitutional: Yes: NAD on NIPPV support Eyes: Yes: Conjunctiva Clear, EOM Intact HENT: Yes: Atraumatic, Normocephalic Neck: Yes: Supple, Trachea Midline Cardiovascular: Yes: Regular Rate and Rhythm Respiratory: Yes: Bilateral coarse Rhonchi ...Clubbing: No Gastrointestinal: Yes: Normal Bowel Sounds, Soft. No: Tenderness Edema: No Labs: Laboratory Results - last 24 hr 06/20/18 06:00 Sodium 138 Potassium 4.2 Chloride 97 L Carbon Dioxide 35 H Anion Gap 5 L BUN 11 Creatinine 0.3 L Creat Clearance w eGFR 223.27 Random Glucose 122 H Calcium 8.5 Phosphorus 1.8 L Magnesium 2.4 Problem List - Problems (1) Acute and chronic respiratory failure with hypoxia Code(s): J96.21 - ACUTE AND CHRONIC RESPIRATORY FAILURE WITH HYPOXIA (2) COPD exacerbation Code(s): J44.1 - CHRONIC OBSTRUCTIVE PULMONARY DISEASE W (ACUTE) EXACERBATION (3) Functional quadriplegia Code(s): R53.2 - FUNCTIONAL QUADRIPLEGIA (4) HLD (hyperlipidemia) Code(s): E78.5 - HYPERLIPIDEMIA, UNSPECIFIED (5) HTN (hypertension) Code(s): I10 - ESSENTIAL (PRIMARY) HYPERTENSION Assessment/Plan Acute on Chronic Hypoxic Respiratory Failure R/O Pneumonia Acute COPD Exacerbation Anoxic Brain Injury Seizure Disorder - ABX per ID - NIPPV support - IV Medrol - Inhaled bronchodilators standing and PRN - O2 to keep SpO2 >90% - Aspiration precautions - DVT prophylaxis - DNR/DNI Dr Bella
--- NOTE | 2018-06-20 11:54 | PN ---
Physical Exam: SUBJECTIVE: Patient seen and examined this AM. Remains on NIPPV. Tolerating tube feeds. No acute overnight events as per nursing. OBJECTIVE: Vital Signs Period Temp Pulse Resp BP Sys/Restrepo Pulse Ox Last 24 Hr 97.4 F-98.8 F 71-90 20-21 124-156/68-93 97-97 GENERAL: NAD HEAD: Microcephaly EYES: PERRL ENT: Moist mucous membranes NECK: No JVD LUNGS: CTA B/L, no wheezes, no crackles HEART: RRR, S1, S2 without murmur ABDOMEN: Soft, mildly distended, + bowel sounds, GTube present on the left without surrounding erythema or drainage EXTREMITIES: All extremities contracted, 1+ right pedal edema NEUROLOGICAL: Awake SKIN: Warm, Dry Laboratory Results - last 24 hr 06/20/18 06:00 Sodium 138 Potassium 4.2 Chloride 97 L Carbon Dioxide 35 H Anion Gap 5 L BUN 11 Creatinine 0.3 L Creat Clearance w eGFR 223.27 Random Glucose 122 H Calcium 8.5 Phosphorus 1.8 L Magnesium 2.4 Active Medications Albuterol Sulfate (Ventolin 0.083% Nebulizer Soln -) 1 amp NEB Q4H PRN PRN Reason: SHORT OF BREATH/WHEEZING Albuterol/Ipratropium (Duoneb -) 1 amp NEB RQID [facility] Last Admin: 06/20/18 11:35 Dose: 1 amp Amlodipine Besylate (Norvasc -) 5 mg GT DAILY [facility] Last Admin: 06/20/18 10:41 Dose: 5 mg Ascorbic Acid (Vitamin C -) 500 mg GT BID [facility] Last Admin: 06/20/18 10:46 Dose: 500 mg Atorvastatin Calcium (Lipitor -) 20 mg GT HS [facility] Last Admin: 06/19/18 23:54 Dose: 20 mg Budesonide (Pulmicort 0.5 Mg Nebulizer -) 1 amp NEB RBID [facility] Last Admin: 06/20/18 10:00 Dose: Not Given Calcium Carbonate/Cholecalciferol (Os-Jamar 500+D -) 2 tab GT HS [facility] Last Admin: 06/19/18 23:54 Dose: 2 tab Enoxaparin Sodium (Lovenox -) 40 mg SQ DAILY [facility] Piperacillin Sod/Tazobactam (Sod 3.375 gm/ Dextrose) 50 mls @ 100 mls/hr IVPB Q8H-IV [facility]; Protocol Last Admin: 06/20/18 10:41 Dose: 100 mls/hr Lactobacillus Acidophilus (Bacid -) 1 tab PO BID [facility] Last Admin: 06/20/18 10:49 Dose: 1 tab Levetiracetam (Keppra Oral Solution -) 1,500 mg PO BID [facility] Last Admin: 06/20/18 10:46 Dose: 1,500 mg Methylprednisolone Sodium Succinate (Solu-Medrol -) 40 mg IVPUSH Q8H-IV [facility] Last Admin: 06/20/18 10:39 Dose: 40 mg Metoclopramide HCl (Reglan Oral Solution -) 5 mg GT QID [facility] Last Admin: 06/20/18 10:42 Dose: 5 mg Metoprolol Tartrate (Lopressor Injection -) 5 mg IVPB Q4H PRN PRN Reason: HYPERTENSION Metoprolol Tartrate (Lopressor -) 50 mg GT BID [facility] Multi-Ingredient Ointment (Zinc Oxide) 1 applic TP TID [facility] Last Admin: 06/20/18 06:10 Dose: 1 applic Pantoprazole Sodium (Protonix Iv) 40 mg IVPUSH DAILY [facility] Last Admin: 06/20/18 10:43 Dose: 40 mg Phenobarbital (Phenobarbital -) 30 mg GT BID [facility] Last Admin: 06/20/18 10:41 Dose: 30 mg Scopolamine HBr (Transderm-Scop -) 1 patch TD Q72H [facility] Last Admin: 06/19/18 09:50 Dose: 1 patch Silver Sulfadiazine (Silvadene -) 1 applic TP DAILY [facility] Last Admin: 06/20/18 10:57 Dose: 1 applic Topiramate (Topamax -) 200 mg GT BID [facility] Last Admin: 06/20/18 10:47 Dose: 200 mg Topiramate (Topamax -) 25 mg NR DAILY [facility] Last Admin: 06/20/18 10:46 Dose: 25 mg Valproate Sodium (Depakene -) 750 mg GT BID [facility] Last Admin: 06/20/18 10:41 Dose: 750 mg IMAGING: -Left Humerus: 2 views of the left humerus reveal a healing fracture deformity of the mid shaft of the left humerus. There is some displacement at the fracture site as shown in one view. The imaging is available for review. -CXR (06/12): No significant interval change or gross acute lung disease is present. -CXR (06/15): Single AP view of the chest has been submitted. Since 06/12/2018, again noted is a scoliosis with convexity to the left, prominent mediastinum and some chronic pleural reaction and atelectasis at the left base. There is elevated right hemidiaphragm with distended bowel. Correlation recommended. -KUB: A single view the abdomen has been obtained. There is motion artifact, G- tube, abdominal distention, motion artifact, degenerative changes and a prior left hip stabilization with hardware. Distended bowel could represent an early obstructive process. For more complete evaluation, better imaging with CT may be of help ASSESSMENT/PLAN: 67 y/o non-verbal Female with PMHx of anoxic brain injury, COPD (on 4L at home) , seizures presented with respiratory distress and found to be in Sepsis #Sepsis -Urine cx--Pseudomonas Aeruginosa -Piperacillin/Tazobactam 3.375 Q6H (Started on 06/12); Will d/c after todays dose -ID (Dr. Hickey) consulted, appreciate rec's -Keep HOB elevated -Aspiration precautions #COPD -Continue NIPPV (16/07/11/40%) -IV Methylprednisolone 40mg Q8H -Albuterol/Ipratropium, Arformoterol, Budesonide -Supplemental O2 to maintain SpO2 88-92% -Pulm consulted #Chronic L arm fracture -Continue to use brace #Hypertension -IV Metoprolol Tartrate 5mg Q4H PRN added given episodes of SBP > 170 -Increase Metoprolol Tartrate 50mg GT to BID -Continue Amlodipine to 5mg GT Daily #HLD -Atorvastatin 20mg GT HS #GERD -Metoclopramide, Pantoprazole, Bacid -Hold Lactulose #Seizures -Levetiracetam, Valproate, Topiramate, Phenobarbital #FEN -No standing fluids -Monitor lytes -Tube Feed Jevity 1.5 #PPx -Lovenox Visit type - Emergency Visit Emergency Visit: Yes ED Registration Date: 06/12/18 Care time: The patient presented to the Emergency Department on the above date and was hospitalized for further evaluation of their emergent condition. - New Patient This patient is new to me today: No - Critical Care Critical Care patient: No - Discharge Referral Referred to [facility] No
--- NOTE | 2018-06-20 17:21 | PN ---
Teaching Attending Note Name of Resident: Melania Marin ATTENDING PHYSICIAN STATEMENT I saw and evaluated the patient. I reviewed the resident's note and discussed the case with the resident. I agree with the resident's findings and plan as documented. SUBJECTIVE: Patient is awake, non-verbal, on BiPAP. OBJECTIVE: Vital Signs Period Temp Pulse Resp BP Sys/Restrepo Pulse Ox Last 24 Hr 97.4 F-98.8 F 65-90 19-21 124-156/67-93 96-97 HEART: S1S2, RRR LUNGS: Clear anteriorly ABDOMEN: Soft, mild distention, normal BS, G-tube in place - insertion site clean EXTREMITIES: No edema Laboratory Results - last 24 hr 06/20/18 06:00 Sodium 138 Potassium 4.2 Chloride 97 L Carbon Dioxide 35 H Anion Gap 5 L BUN 11 Creatinine 0.3 L Creat Clearance w eGFR 223.27 Random Glucose 122 H Calcium 8.5 Phosphorus 1.8 L Magnesium 2.4 Current Medications Generic Name Dose Route Start Last Admin Trade Name Freq PRN Reason Stop Dose Admin Albuterol Sulfate 1 amp 06/16/18 11:52 Ventolin 0.083% Nebulizer Soln - NEB Q4H PRN SHORT OF BREATH/WHEEZING Albuterol/Ipratropium 1 amp 06/16/18 12:00 06/20/18 11:35 Duoneb - NEB 1 amp RQID FRANCIE Administration Amlodipine Besylate 5 mg 06/17/18 09:00 06/20/18 10:41 Norvasc - GT 5 mg DAILY FRANCIE Administration Ascorbic Acid 500 mg 06/12/18 22:00 06/20/18 10:46 Vitamin C - GT 500 mg BID FRANCIE Administration Atorvastatin Calcium 20 mg 06/13/18 22:00 06/19/18 23:54 Lipitor - GT 20 mg HS FRANCIE Administration Budesonide 1 amp 06/18/18 08:00 06/20/18 10:00 Pulmicort 0.5 Mg Nebulizer - NEB Not Given RBID FRANCIE Calcium Carbonate/Cholecalciferol 2 tab 06/12/18 22:00 06/19/18 23:54 Os-Jamar 500+D - GT 2 tab HS FRANCIE Administration Enoxaparin Sodium 40 mg 06/20/18 12:00 06/20/18 11:55 Lovenox - SQ Not Given DAILY FRANCIE Piperacillin Sod/Tazobactam 50 mls @ 100 mls/hr 06/13/18 18:00 06/20/18 10:41 Sod 3.375 gm/ Dextrose IVPB 06/20/18 23:59 100 mls/hr Q8H-IV FRANCIE Administration Protocol Lactobacillus Acidophilus 1 tab 06/18/18 10:00 06/20/18 10:49 Bacid - PO 1 tab BID FRANCIE Administration Levetiracetam 1,500 mg 06/18/18 22:00 06/20/18 10:46 Keppra Oral Solution - PO 1,500 mg BID FRANCIE Administration Methylprednisolone Sodium Succinate 40 mg 06/16/18 12:00 06/20/18 10:39 Solu-Medrol - IVPUSH 40 mg Q8H-IV FRANCIE Administration Metoclopramide HCl 5 mg 06/12/18 22:00 06/20/18 14:36 Reglan Oral Solution - GT 5 mg QID FRANCIE Administration Metoprolol Tartrate 5 mg 06/15/18 09:49 Lopressor Injection - IVPB Q4H PRN HYPERTENSION Metoprolol Tartrate 50 mg 06/20/18 22:00 Lopressor - GT BID FRANCIE Multi-Ingredient Ointment 1 applic 06/12/18 22:00 06/20/18 14:37 Zinc Oxide TP 1 applic TID FRANCIE Administration Pantoprazole Sodium 40 mg 06/13/18 10:00 06/20/18 10:43 Protonix Iv IVPUSH 40 mg DAILY FRANCIE Administration Phenobarbital 30 mg 06/12/18 22:00 06/20/18 10:41 Phenobarbital - GT 30 mg BID FRANCIE Administration Scopolamine HBr 1 patch 06/13/18 10:00 06/19/18 09:50 Transderm-Scop - TD 1 patch Q72H FRANCIE Administration Silver Sulfadiazine 1 applic 06/13/18 10:00 06/20/18 10:57 Silvadene - TP 1 applic DAILY FRANCIE Administration Topiramate 200 mg 06/12/18 22:00 06/20/18 10:47 Topamax - GT 200 mg BID FRANCIE Administration Topiramate 25 mg 06/13/18 10:00 06/20/18 10:46 Topamax - NR 25 mg DAILY FRANCIE Administration Valproate Sodium 750 mg 06/12/18 22:00 06/20/18 10:41 Depakene - GT 750 mg BID FRANCIE Administration ASSESSMENT AND PLAN: This is a 67 year old woman with a history of anoxic brain injury, seizures, COPD, HTN, hyperlipidemia, G-tube who was sent to the ED from [facility] for dyspnea and hypoxia. 1. Acute on chronic hypoxic respiratory failure secondary to acute exacerbation of COPD - Continue SoluMedrol, Pulmicort, DuoNeb, Zosyn - Continue BiPAP as needed 2. Sepsis secondary to Pseudomonas UTI and possible aspiration pneumonia - Continue Zosyn 3. Hypokalemia - Improved 4. Left humerus fracture - Maintain brace on left arm until 06/29 5. History of anoxic brain injury 6. Seizure Disorder - Continue Keppra, Depakene, Phenobarbital, Topamax 7. HTN - Continue Norvasc - Lopressor increased to 2x daily 8. Hyperlipidemia - Continue Lipitor 9. GERD - Continue Protonix 10. Functional quadriplegia 11. Nutrition - Continue Jevity 1.5 via G-tube - Aspiration precautions
[2018-06-20] MEDS ORDERED: PT OWN MED DRAWER 7, Y5N ONE (21:00)
[2018-06-20] MEDS: CALCIUM 500MG/VIT-D 200 UNITS COMBO TABLET (FP) GT SCH (22:19)
[2018-06-20] MEDS: ATORVASTATIN CA 20 MG TABLET (FP) GT SCH (22:20)
[2018-06-21] MEDS: methylPREDNISolone NA SUCC 40 MG/1 ML VIAL IVPUSH SCH ×3 (01:24→17:39)
[2018-06-21] MEDS: ZINC OXIDE 20% TOPICAL OINTMENT 30 GM TUBE TP SCH ×3 (06:21→22:37)
[2018-06-21 08:01] LABS: ANION GAP 7 MMOL/L (8-16); BLOOD UREA NITROGEN 14 mg/dL (7-18); CHLORIDE 95 mmol/L (98-107); CO2 36 mmol/L (21-32); CREATININE 0.3 mg/dL (0.55-1.3); GLUCOSE,RANDOM 120 mg/dL (74-106); MAGNESIUM 2.6 mg/dL (1.8-2.4); PHOSPHOROUS 3.4 mg/dL (2.5-4.9); POTASSIUM 4.6 mmol/L (3.5-5.1); SODIUM 138 mmol/L (136-145)
[2018-06-21] MEDS: ALBUTEROL SO4 2.5/IPRATROPIUM 0.5 INH SOL 3 ML VIAL.NEB. NEB SCH ×4 (08:06→20:35)
[2018-06-21] MEDS: BUDESONIDE 0.5 MG/2 ML INH SUSP VIAL NEB SCH ×2 (08:07→20:40)
--- NOTE | 2018-06-21 10:09 | PN ---
Progress Note, Physician History of Present Illness: stable no new issues breathing better - Current Medication List Current Medications: Active Medications Albuterol Sulfate (Ventolin 0.083% Nebulizer Soln -) 1 amp NEB Q4H PRN PRN Reason: SHORT OF BREATH/WHEEZING Albuterol/Ipratropium (Duoneb -) 1 amp NEB RQID [facility] Last Admin: 06/21/18 08:06 Dose: 1 amp Amlodipine Besylate (Norvasc -) 5 mg GT DAILY [facility] Last Admin: 06/20/18 10:41 Dose: 5 mg Ascorbic Acid (Vitamin C -) 500 mg GT BID [facility] Last Admin: 06/20/18 22:19 Dose: 500 mg Atorvastatin Calcium (Lipitor -) 20 mg GT HS [facility] Last Admin: 06/20/18 22:20 Dose: 20 mg Budesonide (Pulmicort 0.5 Mg Nebulizer -) 1 amp NEB RBID [facility] Last Admin: 06/21/18 08:07 Dose: 1 amp Calcium Carbonate/Cholecalciferol (Os-Jamar 500+D -) 2 tab GT HS [facility] Last Admin: 06/20/18 22:19 Dose: 2 tab Enoxaparin Sodium (Lovenox -) 40 mg SQ DAILY [facility] Last Admin: 06/20/18 11:55 Dose: Not Given Lactobacillus Acidophilus (Bacid -) 1 tab PO BID [facility] Last Admin: 06/20/18 22:19 Dose: 1 tab Levetiracetam (Keppra Oral Solution -) 1,500 mg PO BID [facility] Last Admin: 06/20/18 22:20 Dose: 1,500 mg Methylprednisolone Sodium Succinate (Solu-Medrol -) 40 mg IVPUSH Q8H-IV [facility] Last Admin: 06/21/18 01:24 Dose: 40 mg Metoclopramide HCl (Reglan Oral Solution -) 5 mg GT QID [facility] Last Admin: 06/20/18 22:20 Dose: 5 mg Metoprolol Tartrate (Lopressor Injection -) 5 mg IVPB Q4H PRN PRN Reason: HYPERTENSION Metoprolol Tartrate (Lopressor -) 50 mg GT BID [facility] Last Admin: 06/20/18 22:20 Dose: 50 mg Multi-Ingredient Ointment (Zinc Oxide) 1 applic TP TID [facility] Last Admin: 06/21/18 06:21 Dose: 1 applic Pantoprazole Sodium (Protonix Iv) 40 mg IVPUSH DAILY [facility] Last Admin: 06/20/18 10:43 Dose: 40 mg Phenobarbital (Phenobarbital -) 30 mg GT BID [facility] Last Admin: 06/20/18 22:19 Dose: 30 mg Scopolamine HBr (Transderm-Scop -) 1 patch TD Q72H [facility] Last Admin: 06/19/18 09:50 Dose: 1 patch Silver Sulfadiazine (Silvadene -) 1 applic TP DAILY [facility] Last Admin: 06/20/18 10:57 Dose: 1 applic Topiramate (Topamax -) 200 mg GT BID [facility] Last Admin: 06/20/18 22:19 Dose: 200 mg Topiramate (Topamax -) 25 mg NR DAILY [facility] Last Admin: 06/20/18 10:46 Dose: 25 mg Valproate Sodium (Depakene -) 750 mg GT BID [facility] Last Admin: 06/20/18 22:20 Dose: 750 mg - Objective Vital Signs: Vital Signs Temperature 98.3 F 06/21/18 06:00 Pulse Rate 80 06/21/18 06:00 Respiratory Rate 18 06/21/18 06:00 Blood Pressure 137/79 06/21/18 06:00 O2 Sat by Pulse Oximetry (%) 96 06/20/18 21:00 Constitutional: Yes: No Distress, Calm Cardiovascular: Yes: Regular Rate and Rhythm Respiratory: Yes: Regular, Poor Air Entry (bases) Gastrointestinal: Yes: Normal Bowel Sounds, Soft, Other (peg in place) Musculoskeletal: Yes: WNL Extremities: Yes: WNL Neurological: Yes: Alert, Other Psychiatric: Yes: Other Labs: CBC, BMP 06/19/18 06:00 06/21/18 06:00 INR, PTT INR 1.02 (0.83-1.09) 06/12/18 16:07 Assessment/Plan Problem List - Problems (1) Acute respiratory failure with hypoxia Code(s): J96.01 - ACUTE RESPIRATORY FAILURE WITH HYPOXIA (2) Anoxic brain damage Code(s): G93.1 - ANOXIC BRAIN DAMAGE, NOT ELSEWHERE CLASSIFIED (3) Aspiration pneumonia Code(s): J69.0 - PNEUMONITIS DUE TO INHALATION OF FOOD AND VOMIT (4) COPD exacerbation Code(s): J44.1 - CHRONIC OBSTRUCTIVE PULMONARY DISEASE W (ACUTE) EXACERBATION (5) Fracture of left humerus Code(s): S42.302A - UNSP FRACTURE OF SHAFT OF HUMERUS, LEFT ARM, INIT (6) Functional quadriplegia Code(s): R53.2 - FUNCTIONAL QUADRIPLEGIA (7) HLD (hyperlipidemia) Code(s): E78.5 - HYPERLIPIDEMIA, UNSPECIFIED (8) HTN (hypertension) Code(s): I10 - ESSENTIAL (PRIMARY) HYPERTENSION (9) Scoliosis deformity of spine Code(s): M41.9 - SCOLIOSIS, UNSPECIFIED (10) Seizure disorder Code(s): G40.909 - EPILEPSY, UNSP, NOT INTRACTABLE, WITHOUT STATUS EPILEPTICUS (11) Shortness of breath Code(s): R06.02 - SHORTNESS OF BREATH uti Assessment/Plan PNA - suspected Aspiration UTI Respiratory distress - on BIPAP Fever Leukocytosis LUE fracture Anoxic brain injury Functional Quadriplegia HTN HLD Seizure d.o. COPD plan will stop abx continue resp support rest as per the team improving
[2018-06-21] MEDS ORDERED: PT OWN MED DRAWER 7, Y5N ONE ×3 (11:16→21:05)
[2018-06-21] MEDS: METOCLOPRAMIDE HCL 5 MG/5 ML UNIT DOSE CUP GT SCH ×4 (11:28→22:19)
[2018-06-21] MEDS: TOPIRAMATE 25 MG TABLET (FP) NR SCH (11:28)
[2018-06-21] MEDS: VALPROATE SODIUM 250 MG/5 ML UNIT DOSE CUP GT SCH ×2 (11:28→22:18)
[2018-06-21] MEDS: PHENobarbital 30 MG TABLET GT SCH ×2 (11:28→22:37)
[2018-06-21] MEDS: TOPIRAMATE 200 MG TABLET (FP) GT SCH ×2 (11:28→22:18)
[2018-06-21] MEDS: LACTOBACILLUS ACIDOPHILUS 1 TABLET PO SCH ×2 (11:28→22:18)
[2018-06-21] MEDS: ASCORBIC ACID 500 MG TABLET (FP) GT SCH ×2 (11:29→22:19)
[2018-06-21] MEDS: PANTOPRAZOLE SODIUM 40 MG VIAL IVPUSH SCH (11:29)
[2018-06-21] MEDS: levETIRAcetam 500 MG/5 ML ORAL SOLUTION (UNIT-DOSE CUPS) PO SCH ×2 (11:29→22:18)
[2018-06-21] MEDS: ENOXAPARIN NA (PORCINE) 40 MG/0.4 ML DISP.SYRIN SQ SCH (11:30)
[2018-06-21] MEDS: SILVER SULFADIAZINE 1% TOP CREAM 50 GM JAR TP SCH (11:34)
--- NOTE | 2018-06-21 12:35 | PN ---
Physical Exam: SUBJECTIVE: Patient seen and examined this AM. Tolerated Ventimask this AM. No acute overnight events as per nursing. OBJECTIVE: Vital Signs Period Temp Pulse Resp BP Sys/Restrepo Pulse Ox Last 24 Hr 97.6 F-98.3 F 65-88 18-19 105-155/50-79 96-96 GENERAL: Sleepy HEAD: Microcephaly EYES: PERRL ENT: Moist mucous membranes NECK: No JVD LUNGS: CTA B/L, no wheezes, no crackles HEART: RRR, S1, S2 without murmur ABDOMEN: Soft, mildly distended, + bowel sounds, GTube present on the left without surrounding erythema or drainage EXTREMITIES: All extremities contracted, 1+ right pedal edema NEUROLOGICAL: Sleepy SKIN: Warm, Dry Laboratory Results - last 24 hr 06/21/18 06:00 Sodium 138 Potassium 4.6 Chloride 95 L Carbon Dioxide 36 H Anion Gap 7 L BUN 14 Creatinine 0.3 L Creat Clearance w eGFR 223.27 Random Glucose 120 H Calcium 9.0 Phosphorus 3.4 Magnesium 2.6 H Microbiology 06/12/18 17:30 Blood - Peripheral Venous Blood Culture - Final NO GROWTH AFTER 5 DAYS INCUBATION 06/12/18 17:30 Blood - Peripheral Venous Blood Culture - Final NO GROWTH AFTER 5 DAYS INCUBATION 06/12/18 18:49 Urine - Urine Clean Catch Urine Culture - Final Pseudomonas Aeruginosa 06/12/18 19:05 Urine For Antigen Detection Legionella Antigen - Final 06/12/18 19:05 Urine For Antigen Detection Streptococcus pneumoniae Antigen (M - Final Active Medications Albuterol Sulfate (Ventolin 0.083% Nebulizer Soln -) 1 amp NEB Q4H PRN PRN Reason: SHORT OF BREATH/WHEEZING Albuterol/Ipratropium (Duoneb -) 1 amp NEB RQID [facility] Last Admin: 06/21/18 11:59 Dose: 1 amp Amlodipine Besylate (Norvasc -) 5 mg GT DAILY [facility] Last Admin: 06/20/18 10:41 Dose: 5 mg Ascorbic Acid (Vitamin C -) 500 mg GT BID [facility] Last Admin: 06/21/18 11:29 Dose: 500 mg Atorvastatin Calcium (Lipitor -) 20 mg GT HS [facility] Last Admin: 06/20/18 22:20 Dose: 20 mg Budesonide (Pulmicort 0.5 Mg Nebulizer -) 1 amp NEB RBID [facility] Last Admin: 06/21/18 08:07 Dose: 1 amp Calcium Carbonate/Cholecalciferol (Os-Jamar 500+D -) 2 tab GT HS [facility] Last Admin: 06/20/18 22:19 Dose: 2 tab Enoxaparin Sodium (Lovenox -) 40 mg SQ DAILY [facility] Last Admin: 06/21/18 11:30 Dose: 40 mg Lactobacillus Acidophilus (Bacid -) 1 tab PO BID [facility] Last Admin: 06/21/18 11:28 Dose: 1 tab Levetiracetam (Keppra Oral Solution -) 1,500 mg PO BID [facility] Last Admin: 06/21/18 11:29 Dose: 1,500 mg Methylprednisolone Sodium Succinate (Solu-Medrol -) 40 mg IVPUSH Q8H-IV [facility] Last Admin: 06/21/18 11:30 Dose: 40 mg Metoclopramide HCl (Reglan Oral Solution -) 5 mg GT QID [facility] Last Admin: 06/21/18 11:28 Dose: 5 mg Metoprolol Tartrate (Lopressor Injection -) 5 mg IVPB Q4H PRN PRN Reason: HYPERTENSION Metoprolol Tartrate (Lopressor -) 50 mg GT BID [facility] Last Admin: 06/20/18 22:20 Dose: 50 mg Multi-Ingredient Ointment (Zinc Oxide) 1 applic TP TID [facility] Last Admin: 06/21/18 06:21 Dose: 1 applic Pantoprazole Sodium (Protonix Iv) 40 mg IVPUSH DAILY [facility] Last Admin: 06/21/18 11:29 Dose: 40 mg Phenobarbital (Phenobarbital -) 30 mg GT BID [facility] Last Admin: 06/21/18 11:28 Dose: 30 mg Scopolamine HBr (Transderm-Scop -) 1 patch TD Q72H [facility] Last Admin: 06/19/18 09:50 Dose: 1 patch Silver Sulfadiazine (Silvadene -) 1 applic TP DAILY [facility] Last Admin: 06/21/18 11:34 Dose: 1 applic Topiramate (Topamax -) 200 mg GT BID [facility] Last Admin: 06/21/18 11:28 Dose: 200 mg Topiramate (Topamax -) 25 mg NR DAILY [facility] Last Admin: 06/21/18 11:28 Dose: 25 mg Valproate Sodium (Depakene -) 750 mg GT BID [facility] Last Admin: 06/21/18 11:28 Dose: 750 mg IMAGING: -Left Humerus: 2 views of the left humerus reveal a healing fracture deformity of the mid shaft of the left humerus. There is some displacement at the fracture site as shown in one view. The imaging is available for review. -CXR (06/12): No significant interval change or gross acute lung disease is present. -CXR (06/15): Single AP view of the chest has been submitted. Since 06/12/2018, again noted is a scoliosis with convexity to the left, prominent mediastinum and some chronic pleural reaction and atelectasis at the left base. There is elevated right hemidiaphragm with distended bowel. Correlation recommended. -KUB: A single view the abdomen has been obtained. There is motion artifact, G- tube, abdominal distention, motion artifact, degenerative changes and a prior left hip stabilization with hardware. Distended bowel could represent an early obstructive process. For more complete evaluation, better imaging with CT may be of help ASSESSMENT/PLAN: 67 y/o non-verbal Female with PMHx of anoxic brain injury, COPD (on 4L at home) , seizures presented with respiratory distress and found to be in Sepsis #Sepsis---due to Pseudomonas Aeruginosa UTI -Completed course of Piperacillin/Tazobactam -ID (Dr. Hickey) consulted, appreciate rec's -Keep HOB elevated -Aspiration precautions #COPD -Taper down Supplemental O2 -NIPPV PRN -IV Methylprednisolone 40mg O4J--Ywos discuss transition to PO with Pulm -Albuterol/Ipratropium, Arformoterol, Budesonide -Pulm consulted #Chronic L arm fracture -Continue to use brace #Hypertension -IV Metoprolol Tartrate 5mg Q4H PRN added given episodes of SBP > 170 -Metoprolol Tartrate 50mg GT to BID, Amlodipine to 5mg GT Daily #HLD -Atorvastatin 20mg GT HS #GERD -Metoclopramide, Pantoprazole, Bacid -Hold Lactulose #Seizures -Levetiracetam, Valproate, Topiramate, Phenobarbital #FEN -No standing fluids -Monitor lytes -Tube Feed Jevity 1.5 #PPx -Lovenox Visit type - Emergency Visit Emergency Visit: Yes ED Registration Date: 06/12/18 Care time: The patient presented to the Emergency Department on the above date and was hospitalized for further evaluation of their emergent condition. - New Patient This patient is new to me today: No - Critical Care Critical Care patient: No - Discharge Referral Referred to [facility] No
[2018-06-21] MEDS: METOPROLOL TARTRATE 50 MG TABLET (FP) GT SCH (14:24)
[2018-06-21] MEDS: amLODIPine BESYLATE 5 MG TABLET (FP) GT SCH (14:24)
[2018-06-21] MEDS ORDERED: METOPROLOL TARTRATE 50 MG TABLET (FP) GT SCH (14:53)
--- NOTE | 2018-06-21 16:24 | PN ---
Progress Note (short form) - Note Progress Note: PULMONARY Lethargic on NIPPV support but breathing is non-labored. No change in overall condition. Still with copious secretions. VSS Constitutional: Yes: NAD on NIPPV support Eyes: Yes: Conjunctiva Clear, EOM Intact HENT: Yes: Atraumatic, Normocephalic Neck: Yes: Supple, Trachea Midline Cardiovascular: Yes: Regular Rate and Rhythm Respiratory: Yes: Bilateral coarse Rhonchi ...Clubbing: No Gastrointestinal: Yes: Normal Bowel Sounds, Soft. No: Tenderness Edema: No Labs/meds/notes/images reviewed Problem List - Problems (1) Acute and chronic respiratory failure with hypoxia Code(s): J96.21 - ACUTE AND CHRONIC RESPIRATORY FAILURE WITH HYPOXIA (2) COPD exacerbation Code(s): J44.1 - CHRONIC OBSTRUCTIVE PULMONARY DISEASE W (ACUTE) EXACERBATION (3) Functional quadriplegia Code(s): R53.2 - FUNCTIONAL QUADRIPLEGIA (4) HLD (hyperlipidemia) Code(s): E78.5 - HYPERLIPIDEMIA, UNSPECIFIED (5) HTN (hypertension) Code(s): I10 - ESSENTIAL (PRIMARY) HYPERTENSION Assessment/Plan Acute on Chronic Hypoxic Respiratory Failure R/O Pneumonia Acute COPD Exacerbation Anoxic Brain Injury Seizure Disorder - ABX per ID - NIPPV support - IV Medrol - Inhaled bronchodilators standing and PRN - O2 to keep SpO2 >90% - Aspiration precautions - DVT prophylaxis - DNR/DNI Verenice LIGHT MD
--- NOTE | 2018-06-21 17:40 | PN ---
Teaching Attending Note Name of Resident: Melania Marin ATTENDING PHYSICIAN STATEMENT I saw and evaluated the patient. I reviewed the resident's note and discussed the case with the resident. I agree with the resident's findings and plan as documented. SUBJECTIVE: Patient appears comfortable. OBJECTIVE: Vital Signs Period Temp Pulse Resp BP Sys/Restrepo Pulse Ox Last 24 Hr 97.6 F-98.3 F 66-97 18-20 105-155/50-79 96-96 HEART: S1S2, RRR LUNGS: Clear anteriorly ABDOMEN: Soft, mild distention, normal BS, G-tube in place - insertion site clean EXTREMITIES: No edema Laboratory Results - last 24 hr 06/21/18 06:00 Sodium 138 Potassium 4.6 Chloride 95 L Carbon Dioxide 36 H Anion Gap 7 L BUN 14 Creatinine 0.3 L Creat Clearance w eGFR 223.27 Random Glucose 120 H Calcium 9.0 Phosphorus 3.4 Magnesium 2.6 H Current Medications Generic Name Dose Route Start Last Admin Trade Name Freq PRN Reason Stop Dose Admin Albuterol Sulfate 1 amp 06/16/18 11:52 Ventolin 0.083% Nebulizer Soln - NEB Q4H PRN SHORT OF BREATH/WHEEZING Albuterol/Ipratropium 1 amp 06/16/18 12:00 06/21/18 11:59 Duoneb - NEB 1 amp RQID FRANCIE Administration Amlodipine Besylate 5 mg 06/17/18 09:00 06/21/18 14:24 Norvasc - GT 5 mg DAILY FRANCIE Administration Ascorbic Acid 500 mg 06/12/18 22:00 06/21/18 11:29 Vitamin C - GT 500 mg BID FRANCIE Administration Atorvastatin Calcium 20 mg 06/13/18 22:00 06/20/18 22:20 Lipitor - GT 20 mg HS FRANCIE Administration Budesonide 1 amp 06/18/18 08:00 06/21/18 08:07 Pulmicort 0.5 Mg Nebulizer - NEB 1 amp RBID FRANCIE Administration Calcium Carbonate/Cholecalciferol 2 tab 06/12/18 22:00 06/20/18 22:19 Os-Jamar 500+D - GT 2 tab HS FRANCIE Administration Enoxaparin Sodium 40 mg 06/20/18 12:00 06/21/18 11:30 Lovenox - SQ 40 mg DAILY FRANCIE Administration Lactobacillus Acidophilus 1 tab 06/18/18 10:00 06/21/18 11:28 Bacid - PO 1 tab BID FRANCIE Administration Levetiracetam 1,500 mg 06/18/18 22:00 06/21/18 11:29 Keppra Oral Solution - PO 1,500 mg BID FRANCIE Administration Methylprednisolone Sodium Succinate 40 mg 06/16/18 12:00 06/21/18 11:30 Solu-Medrol - IVPUSH 40 mg Q8H-IV FRANCIE Administration Metoclopramide HCl 5 mg 06/12/18 22:00 06/21/18 14:24 Reglan Oral Solution - GT 5 mg QID FRANCIE Administration Metoprolol Tartrate 5 mg 06/15/18 09:49 Lopressor Injection - IVPB Q4H PRN HYPERTENSION Metoprolol Tartrate 50 mg 06/21/18 14:53 Lopressor - GT BID FRANCIE Multi-Ingredient Ointment 1 applic 06/12/18 22:00 06/21/18 14:25 Zinc Oxide TP 1 applic TID FRANCIE Administration Pantoprazole Sodium 40 mg 06/13/18 10:00 06/21/18 11:29 Protonix Iv IVPUSH 40 mg DAILY FRANCIE Administration Phenobarbital 30 mg 06/12/18 22:00 06/21/18 11:28 Phenobarbital - GT 30 mg BID FRANCIE Administration Scopolamine HBr 1 patch 06/13/18 10:00 06/19/18 09:50 Transderm-Scop - TD 1 patch Q72H FRANCIE Administration Silver Sulfadiazine 1 applic 06/13/18 10:00 06/21/18 11:34 Silvadene - TP 1 applic DAILY FRANCIE Administration Topiramate 200 mg 06/12/18 22:00 06/21/18 11:28 Topamax - GT 200 mg BID FRANCIE Administration Topiramate 25 mg 06/13/18 10:00 06/21/18 11:28 Topamax - NR 25 mg DAILY FRANCIE Administration Valproate Sodium 750 mg 06/12/18 22:00 06/21/18 11:28 Depakene - GT 750 mg BID FRANCIE Administration ASSESSMENT AND PLAN: This is a 67 year old woman with a history of anoxic brain injury, seizures, COPD, HTN, hyperlipidemia, G-tube who was sent to the ED from [facility] for dyspnea and hypoxia. 1. Acute on chronic hypoxic respiratory failure secondary to acute exacerbation of COPD - Continue SoluMedrol, Pulmicort, DuoNeb - Continue oxygen, BiPAP as needed 2. Sepsis secondary to Pseudomonas UTI and possible aspiration pneumonia - Continue Zosyn 3. Hypokalemia - Improved 4. Left humerus fracture - Maintain brace on left arm until 06/29 5. History of anoxic brain injury 6. Seizure Disorder - Continue Keppra, Depakene, Phenobarbital, Topamax 7. HTN - Continue Norvasc, Lopressor 8. Hyperlipidemia - Continue Lipitor 9. GERD - Continue Protonix 10. Functional quadriplegia 11. Nutrition - Continue Jevity 1.5 via G-tube - Aspiration precautions
[2018-06-21] MEDS: ATORVASTATIN CA 20 MG TABLET (FP) GT SCH (22:18)
[2018-06-21] MEDS: CALCIUM 500MG/VIT-D 200 UNITS COMBO TABLET (FP) GT SCH (22:18)
[2018-06-21] MEDS: METOPROLOL TARTRATE 25 MG TABLET (FP) GT SCH (22:18)
[2018-06-22] MEDS: methylPREDNISolone NA SUCC 40 MG/1 ML VIAL IVPUSH SCH ×3 (01:13→17:04)
[2018-06-22] MEDS: ZINC OXIDE 20% TOPICAL OINTMENT 30 GM TUBE TP SCH ×3 (05:48→21:47)
[2018-06-22] MEDS: ALBUTEROL SO4 2.5/IPRATROPIUM 0.5 INH SOL 3 ML VIAL.NEB. NEB SCH ×4 (08:04→20:30)
[2018-06-22] MEDS: BUDESONIDE 0.5 MG/2 ML INH SUSP VIAL NEB SCH ×2 (08:04→20:00)
[2018-06-22] MEDS: ASCORBIC ACID 500 MG TABLET (FP) GT SCH ×2 (11:01→21:46)
[2018-06-22] MEDS: METOCLOPRAMIDE HCL 5 MG/5 ML UNIT DOSE CUP GT SCH ×4 (11:01→21:45)
[2018-06-22] MEDS: VALPROATE SODIUM 250 MG/5 ML UNIT DOSE CUP GT SCH ×2 (11:01→21:44)
[2018-06-22] MEDS: TOPIRAMATE 25 MG TABLET (FP) NR SCH (11:02)
[2018-06-22] MEDS: amLODIPine BESYLATE 5 MG TABLET (FP) GT SCH (11:02)
[2018-06-22] MEDS: METOPROLOL TARTRATE 25 MG TABLET (FP) GT SCH ×2 (11:02→21:46)
[2018-06-22] MEDS: LACTOBACILLUS ACIDOPHILUS 1 TABLET PO SCH ×2 (11:02→21:46)
[2018-06-22] MEDS: PANTOPRAZOLE SODIUM 40 MG VIAL IVPUSH SCH (11:02)
[2018-06-22] MEDS: ENOXAPARIN NA (PORCINE) 40 MG/0.4 ML DISP.SYRIN SQ SCH (11:02)
[2018-06-22] MEDS: PHENobarbital 30 MG TABLET GT SCH ×2 (11:02→21:46)
[2018-06-22] MEDS: levETIRAcetam 500 MG/5 ML ORAL SOLUTION (UNIT-DOSE CUPS) PO SCH ×2 (11:03→21:45)
[2018-06-22] MEDS: TOPIRAMATE 200 MG TABLET (FP) GT SCH ×2 (11:04→21:46)
[2018-06-22] MEDS: SILVER SULFADIAZINE 1% TOP CREAM 50 GM JAR TP SCH (11:05)
[2018-06-22] MEDS: SCOPOLAMINE HYDROBROMIDE 1 PATCH PATCH.TD72 TD SCH (11:05)
--- NOTE | 2018-06-22 11:18 | PN ---
Progress Note, Physician History of Present Illness: stable on nasal canula - Current Medication List Current Medications: Active Medications Albuterol Sulfate (Ventolin 0.083% Nebulizer Soln -) 1 amp NEB Q4H PRN PRN Reason: SHORT OF BREATH/WHEEZING Albuterol/Ipratropium (Duoneb -) 1 amp NEB RQID [facility] Last Admin: 06/22/18 08:04 Dose: 1 amp Amlodipine Besylate (Norvasc -) 5 mg GT DAILY [facility] Last Admin: 06/22/18 11:02 Dose: 5 mg Ascorbic Acid (Vitamin C -) 500 mg GT BID [facility] Last Admin: 06/22/18 11:01 Dose: 500 mg Atorvastatin Calcium (Lipitor -) 20 mg GT HS [facility] Last Admin: 06/21/18 22:18 Dose: 20 mg Budesonide (Pulmicort 0.5 Mg Nebulizer -) 1 amp NEB RBID [facility] Last Admin: 06/22/18 08:04 Dose: 1 amp Calcium Carbonate/Cholecalciferol (Os-Jamar 500+D -) 2 tab GT [facility] Last Admin: 06/21/18 22:18 Dose: 2 tab Enoxaparin Sodium (Lovenox -) 40 mg SQ DAILY [facility] Last Admin: 06/22/18 11:02 Dose: 40 mg Lactobacillus Acidophilus (Bacid -) 1 tab PO BID [facility] Last Admin: 06/22/18 11:02 Dose: 1 tab Levetiracetam (Keppra Oral Solution -) 1,500 mg PO BID [facility] Last Admin: 06/22/18 11:03 Dose: 1,500 mg Methylprednisolone Sodium Succinate (Solu-Medrol -) 40 mg IVPUSH Q8H-IV [facility] Last Admin: 06/22/18 11:02 Dose: 40 mg Metoclopramide HCl (Reglan Oral Solution -) 5 mg GT QID [facility] Last Admin: 06/22/18 11:01 Dose: 5 mg Metoprolol Tartrate (Lopressor Injection -) 5 mg IVPB Q4H PRN PRN Reason: HYPERTENSION Metoprolol Tartrate (Lopressor -) 25 mg GT BID [facility] Last Admin: 06/22/18 11:02 Dose: 25 mg Multi-Ingredient Ointment (Zinc Oxide) 1 applic TP TID [facility] Last Admin: 06/22/18 05:48 Dose: 1 applic Pantoprazole Sodium (Protonix Iv) 40 mg IVPUSH DAILY [facility] Last Admin: 06/22/18 11:02 Dose: 40 mg Phenobarbital (Phenobarbital -) 30 mg GT BID [facility] Last Admin: 06/22/18 11:02 Dose: 30 mg Scopolamine HBr (Transderm-Scop -) 1 patch TD Q72H [facility] Last Admin: 06/22/18 11:05 Dose: 1 patch Silver Sulfadiazine (Silvadene -) 1 applic TP DAILY [facility] Last Admin: 06/22/18 11:05 Dose: 1 applic Topiramate (Topamax -) 200 mg GT BID [facility] Last Admin: 06/22/18 11:04 Dose: 200 mg Topiramate (Topamax -) 25 mg NR DAILY [facility] Last Admin: 06/22/18 11:02 Dose: 25 mg Valproate Sodium (Depakene -) 750 mg GT BID [facility] Last Admin: 06/22/18 11:01 Dose: 750 mg - Objective Vital Signs: Vital Signs Temperature 98.1 F 06/22/18 09:40 Pulse Rate 92 H 06/22/18 09:40 Respiratory Rate 20 06/22/18 09:40 Blood Pressure 108/61 06/22/18 09:40 O2 Sat by Pulse Oximetry (%) 96 06/21/18 21:00 Constitutional: Yes: No Distress, Calm Cardiovascular: Yes: Regular Rate and Rhythm Respiratory: Yes: Regular, On Nasal O2, Poor Air Entry Gastrointestinal: Yes: Normal Bowel Sounds, Soft, Other (peg in place) Musculoskeletal: Yes: WNL Extremities: Yes: Other Neurological: Yes: Alert, Other Psychiatric: Yes: Other Labs: CBC, BMP 06/19/18 06:00 06/21/18 06:00 INR, PTT INR 1.02 (0.83-1.09) 06/12/18 16:07 Assessment/Plan Problem List - Problems (1) Acute respiratory failure with hypoxia Code(s): J96.01 - ACUTE RESPIRATORY FAILURE WITH HYPOXIA (2) Anoxic brain damage Code(s): G93.1 - ANOXIC BRAIN DAMAGE, NOT ELSEWHERE CLASSIFIED (3) Aspiration pneumonia Code(s): J69.0 - PNEUMONITIS DUE TO INHALATION OF FOOD AND VOMIT (4) COPD exacerbation Code(s): J44.1 - CHRONIC OBSTRUCTIVE PULMONARY DISEASE W (ACUTE) EXACERBATION (5) Fracture of left humerus Code(s): S42.302A - UNSP FRACTURE OF SHAFT OF HUMERUS, LEFT ARM, INIT (6) Functional quadriplegia Code(s): R53.2 - FUNCTIONAL QUADRIPLEGIA (7) HLD (hyperlipidemia) Code(s): E78.5 - HYPERLIPIDEMIA, UNSPECIFIED (8) HTN (hypertension) Code(s): I10 - ESSENTIAL (PRIMARY) HYPERTENSION (9) Scoliosis deformity of spine Code(s): M41.9 - SCOLIOSIS, UNSPECIFIED (10) Seizure disorder Code(s): G40.909 - EPILEPSY, UNSP, NOT INTRACTABLE, WITHOUT STATUS EPILEPTICUS (11) Shortness of breath Code(s): R06.02 - SHORTNESS OF BREATH uti Assessment/Plan PNA - suspected Aspiration UTI Respiratory distress - on BIPAP Fever Leukocytosis LUE fracture Anoxic brain injury Functional Quadriplegia HTN HLD Seizure d.o. COPD plan stable off of abx breathing better rest as per the team resp support
--- NOTE | 2018-06-22 13:11 | PN ---
Physical Exam: SUBJECTIVE: Patient seen and examined. On 4 NC overnight. Tolerated well. No events overnight. OBJECTIVE: Vital Signs Period Temp Pulse Resp BP Sys/Restrepo Pulse Ox Last 24 Hr 97.5 F-98.1 F 73-103 20-20 108-139/56-79 96 GENERAL: lethargic, arousable to sternal rub, in no distress HEAD: Microcephaly EYES: PERRL ENT: Moist mucous membranes NECK: No JVD LUNGS: CTA B/L, no wheezes, no crackles HEART: RRR, S1, S2 without murmur ABDOMEN: Soft, mildly distended, + bowel sounds, +gtube EXTREMITIES: All extremities contracted, 1+ right pedal edema NEUROLOGICAL: Sleepy Active Medications Generic Name Dose Route Start Last Admin Trade Name Freq PRN Reason Stop Dose Admin Albuterol Sulfate 1 amp 06/16/18 11:52 Ventolin 0.083% Nebulizer Soln - NEB Q4H PRN SHORT OF BREATH/WHEEZING Albuterol/Ipratropium 1 amp 06/16/18 12:00 06/22/18 11:47 Duoneb - NEB 1 amp RQID [facility] Administration Amlodipine Besylate 5 mg 06/17/18 09:00 06/22/18 11:02 Norvasc - GT 5 mg DAILY [facility] Administration Ascorbic Acid 500 mg 06/12/18 22:00 06/22/18 11:01 Vitamin C - GT 500 mg BID [facility] Administration Atorvastatin Calcium 20 mg 06/13/18 22:00 06/21/18 22:18 Lipitor - GT 20 mg HS [facility] Administration Budesonide 1 amp 06/18/18 08:00 06/22/18 08:04 Pulmicort 0.5 Mg Nebulizer - NEB 1 amp RBID [facility] Administration Calcium Carbonate/Cholecalciferol 2 tab 06/12/18 22:00 06/21/18 22:18 Os-Jamar 500+D - GT 2 tab HS [facility] Administration Enoxaparin Sodium 40 mg 06/20/18 12:00 06/22/18 11:02 Lovenox - SQ 40 mg DAILY [facility] Administration Lactobacillus Acidophilus 1 tab 06/18/18 10:00 06/22/18 11:02 Bacid - PO 1 tab BID [facility] Administration Levetiracetam 1,500 mg 06/18/18 22:00 06/22/18 11:03 Keppra Oral Solution - PO 1,500 mg BID [facility] Administration Methylprednisolone Sodium Succinate 40 mg 06/16/18 12:00 06/22/18 11:02 Solu-Medrol - IVPUSH 40 mg Q8H-IV [facility] Administration Metoclopramide HCl 5 mg 06/12/18 22:00 06/22/18 11:01 Reglan Oral Solution - GT 5 mg QID [facility] Administration Metoprolol Tartrate 5 mg 06/15/18 09:49 Lopressor Injection - IVPB Q4H PRN HYPERTENSION Metoprolol Tartrate 25 mg 06/21/18 22:00 06/22/18 11:02 Lopressor - GT 25 mg BID [facility] Administration Multi-Ingredient Ointment 1 applic 06/12/18 22:00 06/22/18 05:48 Zinc Oxide TP 1 applic TID [facility] Administration Pantoprazole Sodium 40 mg 06/13/18 10:00 06/22/18 11:02 Protonix Iv IVPUSH 40 mg DAILY [facility] Administration Phenobarbital 30 mg 06/12/18 22:00 06/22/18 11:02 Phenobarbital - GT 30 mg BID [facility] Administration Scopolamine HBr 1 patch 06/13/18 10:00 06/22/18 11:05 Transderm-Scop - TD 1 patch Q72H [facility] Administration Silver Sulfadiazine 1 applic 06/13/18 10:00 06/22/18 11:05 Silvadene - TP 1 applic DAILY [facility] Administration Topiramate 200 mg 06/12/18 22:00 06/22/18 11:04 Topamax - GT 200 mg BID [facility] Administration Topiramate 25 mg 06/13/18 10:00 06/22/18 11:02 Topamax - NR 25 mg DAILY [facility] Administration Valproate Sodium 750 mg 06/12/18 22:00 06/22/18 11:01 Depakene - GT 750 mg BID [facility] Administration Imaging: -Left Humerus: 2 views of the left humerus reveal a healing fracture deformity of the mid shaft of the left humerus. There is some displacement at the fracture site as shown in one view. The imaging is available for review. -CXR (06/12): No significant interval change or gross acute lung disease is present. -CXR (06/15): Single AP view of the chest has been submitted. Since 06/12/2018, again noted is a scoliosis with convexity to the left, prominent mediastinum and some chronic pleural reaction and atelectasis at the left base. There is elevated right hemidiaphragm with distended bowel. Correlation recommended. -KUB: A single view the abdomen has been obtained. There is motion artifact, G- tube, abdominal distention, motion artifact, degenerative changes and a prior left hip stabilization with hardware. Distended bowel could represent an early obstructive process. For more complete evaluation, better imaging with CT may be of help ASSESSMENT/PLAN: 67 y/o non-verbal Female with PMHx of anoxic brain injury, COPD (on 4L at home) , seizures presented with respiratory distress and found to be in Sepsis #COPD -Taper down Supplemental O2 -Now on 4L NC (patient normally on 4 L) -IV Methylprednisolone 40mg W8Q--Gtvk discuss transition to PO with Pulm -Albuterol/Ipratropium, Arformoterol, Budesonide -Pulm consulted #Sepsis-resolved -due to Pseudomonas Aeruginosa UTI -Completed course of Piperacillin/Tazobactam -ID (Dr. Hickey) consulted, appreciate rec's -Keep HOB elevated -Aspiration precaution #Chronic L arm fracture -Continue to use brace #Hypertension -IV Metoprolol Tartrate 5mg Q4H PRN added given episodes of SBP > 170 -Metoprolol Tartrate 50mg GT to BID, Amlodipine to 5mg GT Daily #HLD -Atorvastatin 20mg GT HS #GERD -Metoclopramide, Pantoprazole, Bacid -Hold Lactulose #Seizures -Levetiracetam, Valproate, Topiramate, Phenobarbital #FEN -No standing fluids -Monitor lytes -Tube Feed Jevity 1.5 #PPx -Lovenox Visit type - Emergency Visit Emergency Visit: Yes ED Registration Date: 06/12/18 Care time: The patient presented to the Emergency Department on the above date and was hospitalized for further evaluation of their emergent condition. - New Patient This patient is new to me today: Yes Date on this admission: 06/22/18 - Critical Care Critical Care patient: No
--- NOTE | 2018-06-22 13:15 | PN ---
Progress Note (short form) - Note Progress Note: PULMONARY No change in overall condition. Still with copious secretions. VSS Constitutional: Yes: NAD on NIPPV support Eyes: Yes: Conjunctiva Clear, EOM Intact HENT: Yes: Atraumatic, Normocephalic Neck: Yes: Supple, Trachea Midline Cardiovascular: Yes: Regular Rate and Rhythm Respiratory: Yes: Bilateral coarse Rhonchi ...Clubbing: No Gastrointestinal: Yes: Normal Bowel Sounds, Soft. No: Tenderness Edema: No Labs/meds/notes/images reviewed Problem List - Problems (1) Acute and chronic respiratory failure with hypoxia Code(s): J96.21 - ACUTE AND CHRONIC RESPIRATORY FAILURE WITH HYPOXIA (2) COPD exacerbation Code(s): J44.1 - CHRONIC OBSTRUCTIVE PULMONARY DISEASE W (ACUTE) EXACERBATION (3) Functional quadriplegia Code(s): R53.2 - FUNCTIONAL QUADRIPLEGIA (4) HLD (hyperlipidemia) Code(s): E78.5 - HYPERLIPIDEMIA, UNSPECIFIED (5) HTN (hypertension) Code(s): I10 - ESSENTIAL (PRIMARY) HYPERTENSION Assessment/Plan Acute on Chronic Hypoxic Respiratory Failure R/O Pneumonia Acute COPD Exacerbation Anoxic Brain Injury Seizure Disorder - ABX per ID - NIPPV support - IV Medrol - Inhaled bronchodilators standing and PRN - O2 to keep SpO2 >90% - Aspiration precautions - DVT prophylaxis - DNR/DNI Verenice LIGHT MD
--- NOTE | 2018-06-22 15:20 | PN ---
Teaching Attending Note Name of Resident: Sherri Acuna ATTENDING PHYSICIAN STATEMENT I saw and evaluated the patient. I reviewed the resident's note and discussed the case with the resident. I agree with the resident's findings and plan as documented. SUBJECTIVE: unable to obtain hx. no events OBJECTIVE: NAD, comfortable, drooling CV : RRR Lungs: clear anteriorly Ext : No edema , + muscular atrophy ASSESSMENT AND PLAN: 67 y/o lady with h/o anoxic brain injury, seizures, HLP, HTN, GT placement, and COPD who presented with L Hypoxia 1- Acute hypoxic resp failure, due to Acute COPD exacerbation and possible aspiration PNA - cont zosyn - steroids - nebs 2- Sepsis due to pseudomonas UTI and possible aspiration PNA - cont abx . - leukocytosis resolved 3- L humerus Fx: brace through 06/29 4- Seizure disorder : cont her home meds 5- HTN: cont meds 6- TF with jevity 7- DVT Px : Lovenox
[2018-06-22] MEDS: ATORVASTATIN CA 20 MG TABLET (FP) GT SCH (21:46)
[2018-06-22] MEDS: CALCIUM 500MG/VIT-D 200 UNITS COMBO TABLET (FP) GT SCH (21:47)
[2018-06-23] MEDS: methylPREDNISolone NA SUCC 40 MG/1 ML VIAL IVPUSH SCH ×3 (01:20→17:07)
[2018-06-23] MEDS: ZINC OXIDE 20% TOPICAL OINTMENT 30 GM TUBE TP SCH ×3 (05:57→22:20)
[2018-06-23] MEDS: ALBUTEROL SO4 2.5/IPRATROPIUM 0.5 INH SOL 3 ML VIAL.NEB. NEB SCH ×4 (08:06→20:05)
[2018-06-23] MEDS: BUDESONIDE 0.5 MG/2 ML INH SUSP VIAL NEB SCH ×2 (08:07→20:06)
[2018-06-23] MEDS: ENOXAPARIN NA (PORCINE) 40 MG/0.4 ML DISP.SYRIN SQ SCH (10:49)
[2018-06-23] MEDS: amLODIPine BESYLATE 5 MG TABLET (FP) GT SCH (10:49)
[2018-06-23] MEDS: VALPROATE SODIUM 250 MG/5 ML UNIT DOSE CUP GT SCH ×2 (10:49→22:19)
[2018-06-23] MEDS: PANTOPRAZOLE SODIUM 40 MG VIAL IVPUSH SCH (10:49)
[2018-06-23] MEDS: METOCLOPRAMIDE HCL 5 MG/5 ML UNIT DOSE CUP GT SCH ×4 (10:49→22:19)
[2018-06-23] MEDS: LACTOBACILLUS ACIDOPHILUS 1 TABLET PO SCH ×2 (10:50→22:20)
[2018-06-23] MEDS: PHENobarbital 30 MG TABLET GT SCH ×2 (10:50→22:20)
[2018-06-23] MEDS: ASCORBIC ACID 500 MG TABLET (FP) GT SCH ×2 (10:50→22:20)
[2018-06-23] MEDS: METOPROLOL TARTRATE 25 MG TABLET (FP) GT SCH ×2 (10:50→22:20)
[2018-06-23] MEDS: TOPIRAMATE 200 MG TABLET (FP) GT SCH ×2 (10:50→22:20)
[2018-06-23] MEDS: TOPIRAMATE 25 MG TABLET (FP) NR SCH (10:50)
[2018-06-23] MEDS: levETIRAcetam 500 MG/5 ML ORAL SOLUTION (UNIT-DOSE CUPS) PO SCH ×2 (10:50→22:19)
[2018-06-23] MEDS: SILVER SULFADIAZINE 1% TOP CREAM 50 GM JAR TP SCH (10:51)
--- NOTE | 2018-06-23 11:47 | PN ---
Physical Exam: SUBJECTIVE: Patient seen and examined. She appears comfortable. Eyes are open, she is non-communicative. OBJECTIVE: Vital Signs Period Temp Pulse Resp BP Sys/Restrepo Pulse Ox Last 24 Hr 97.9 F-98.4 F 69-90 18-18 110-142/63-73 96-98 GENERAL: The patient is awake, non-communicative, in no acute distress. LUNGS: Anteriorly, breath sounds equal, clear to auscultation bilaterally, no wheezes, no crackles, no accessory muscle use. HEART: Regular rate and rhythm, S1, S2 without murmur, rub or gallop. ABDOMEN: Soft, nondistended, normoactive bowel sounds, G-tube in place with clean insertion site. EXTREMITIES: Contracted, 2+ pulses, warm, well-perfused, no edema. Active Medications Generic Name Dose Route Start Last Admin Trade Name Freq PRN Reason Stop Dose Admin Albuterol Sulfate 1 amp 06/16/18 11:52 Ventolin 0.083% Nebulizer Soln - NEB Q4H PRN SHORT OF BREATH/WHEEZING Albuterol/Ipratropium 1 amp 06/16/18 12:00 06/23/18 08:06 Duoneb - NEB 1 amp RQID [facility] Administration Amlodipine Besylate 5 mg 06/17/18 09:00 06/23/18 10:49 Norvasc - GT 5 mg DAILY [facility] Administration Ascorbic Acid 500 mg 06/12/18 22:00 06/23/18 10:50 Vitamin C - GT 500 mg BID [facility] Administration Atorvastatin Calcium 20 mg 06/13/18 22:00 06/22/18 21:46 Lipitor - GT 20 mg HS [facility] Administration Budesonide 1 amp 06/18/18 08:00 06/23/18 08:07 Pulmicort 0.5 Mg Nebulizer - NEB 1 amp RBID [facility] Administration Calcium Carbonate/Cholecalciferol 2 tab 06/12/18 22:00 06/22/18 21:47 Os-Jamar 500+D - GT 2 tab HS [facility] Administration Enoxaparin Sodium 40 mg 06/20/18 12:00 06/23/18 10:49 Lovenox - SQ 40 mg DAILY [facility] Administration Lactobacillus Acidophilus 1 tab 06/18/18 10:00 06/23/18 10:50 Bacid - PO 1 tab BID [facility] Administration Levetiracetam 1,500 mg 04/16/19 22:00 06/23/18 10:50 Keppra Oral Solution - PO 1,500 mg BID [facility] Administration Methylprednisolone Sodium Succinate 40 mg 06/16/18 12:00 06/23/18 10:49 Solu-Medrol - IVPUSH 40 mg Q8H-IV [facility] Administration Metoclopramide HCl 5 mg 06/12/18 22:00 06/23/18 10:49 Reglan Oral Solution - GT 5 mg QID [facility] Administration Metoprolol Tartrate 5 mg 06/15/18 09:49 Lopressor Injection - IVPB Q4H PRN HYPERTENSION Metoprolol Tartrate 25 mg 06/21/18 22:00 06/23/18 10:50 Lopressor - GT 25 mg BID [facility] Administration Multi-Ingredient Ointment 1 applic 06/12/18 22:00 06/23/18 05:57 Zinc Oxide TP 1 applic TID [facility] Administration Pantoprazole Sodium 40 mg 06/13/18 10:00 06/23/18 10:49 Protonix Iv IVPUSH 40 mg DAILY [facility] Administration Phenobarbital 30 mg 06/12/18 22:00 06/23/18 10:50 Phenobarbital - GT 30 mg BID [facility] Administration Scopolamine HBr 1 patch 06/13/18 10:00 06/22/18 11:05 Transderm-Scop - TD 1 patch Q72H [facility] Administration Silver Sulfadiazine 1 applic 06/13/18 10:00 06/23/18 10:51 Silvadene - TP Not Given DAILY [facility] Topiramate 200 mg 06/12/18 22:00 06/23/18 10:50 Topamax - GT 200 mg BID [facility] Administration Topiramate 25 mg 06/13/18 10:00 06/23/18 10:50 Topamax - NR 25 mg DAILY [facility] Administration Valproate Sodium 750 mg 06/12/18 22:00 06/23/18 10:49 Depakene - GT 750 mg BID [facility] Administration ASSESSMENT/PLAN: This is a 67 year old woman with a history of anoxic brain injury, seizures, COPD, HTN, hyperlipidemia, G-tube who was sent to the ED from [facility] for dyspnea and hypoxia. 1. Acute on chronic hypoxic respiratory failure secondary to acute exacerbation of COPD - Continue SoluMedrol, Pulmicort, DuoNeb - Continue oxygen, BiPAP as needed 2. Sepsis secondary to Pseudomonas UTI and possible aspiration pneumonia - Completed Zosyn 3. Hypokalemia - Improved 4. Left humerus fracture - Maintain brace on left arm until 06/29 5. History of anoxic brain injury 6. Seizure Disorder - Continue Keppra, Depakene, Phenobarbital, Topamax 7. HTN - Continue Norvasc, Lopressor 8. Hyperlipidemia - Continue Lipitor 9. GERD - Continue Protonix 10. Functional quadriplegia 11. Nutrition - Continue Jevity 1.5 via G-tube - Aspiration precautions Visit type - Emergency Visit Emergency Visit: Yes ED Registration Date: 06/12/18 Care time: The patient presented to the Emergency Department on the above date and was hospitalized for further evaluation of their emergent condition. - New Patient This patient is new to me today: No - Critical Care Critical Care patient: No - Discharge Referral Referred to [facility] No
--- NOTE | 2018-06-23 12:51 | PN ---
Progress Note, Physician History of Present Illness: doing well on nasal canula off of abx - Current Medication List Current Medications: Active Medications Albuterol Sulfate (Ventolin 0.083% Nebulizer Soln -) 1 amp NEB Q4H PRN PRN Reason: SHORT OF BREATH/WHEEZING Albuterol/Ipratropium (Duoneb -) 1 amp NEB RQID [facility] Last Admin: 06/23/18 12:33 Dose: 1 amp Amlodipine Besylate (Norvasc -) 5 mg GT DAILY [facility] Last Admin: 06/23/18 10:49 Dose: 5 mg Ascorbic Acid (Vitamin C -) 500 mg GT BID [facility] Last Admin: 06/23/18 10:50 Dose: 500 mg Atorvastatin Calcium (Lipitor -) 20 mg GT HS [facility] Last Admin: 06/22/18 21:46 Dose: 20 mg Budesonide (Pulmicort 0.5 Mg Nebulizer -) 1 amp NEB RBID [facility] Last Admin: 06/23/18 08:07 Dose: 1 amp Calcium Carbonate/Cholecalciferol (Os-Jamar 500+D -) 2 tab GT HS [facility] Last Admin: 06/22/18 21:47 Dose: 2 tab Enoxaparin Sodium (Lovenox -) 40 mg SQ DAILY [facility] Last Admin: 06/23/18 10:49 Dose: 40 mg Lactobacillus Acidophilus (Bacid -) 1 tab PO BID [facility] Last Admin: 06/23/18 10:50 Dose: 1 tab Levetiracetam (Keppra Oral Solution -) 1,500 mg PO BID [facility] Last Admin: 06/23/18 10:50 Dose: 1,500 mg Methylprednisolone Sodium Succinate (Solu-Medrol -) 40 mg IVPUSH Q8H-IV [facility] Last Admin: 06/23/18 10:49 Dose: 40 mg Metoclopramide HCl (Reglan Oral Solution -) 5 mg GT QID [facility] Last Admin: 06/23/18 10:49 Dose: 5 mg Metoprolol Tartrate (Lopressor Injection -) 5 mg IVPB Q4H PRN PRN Reason: HYPERTENSION Metoprolol Tartrate (Lopressor -) 25 mg GT BID [facility] Last Admin: 06/23/18 10:50 Dose: 25 mg Multi-Ingredient Ointment (Zinc Oxide) 1 applic TP TID [facility] Last Admin: 06/23/18 05:57 Dose: 1 applic Pantoprazole Sodium (Protonix Iv) 40 mg IVPUSH DAILY [facility] Last Admin: 06/23/18 10:49 Dose: 40 mg Phenobarbital (Phenobarbital -) 30 mg GT BID [facility] Last Admin: 06/23/18 10:50 Dose: 30 mg Scopolamine HBr (Transderm-Scop -) 1 patch TD Q72H [facility] Last Admin: 06/22/18 11:05 Dose: 1 patch Silver Sulfadiazine (Silvadene -) 1 applic TP DAILY [facility] Last Admin: 06/23/18 10:51 Dose: Not Given Topiramate (Topamax -) 200 mg GT BID [facility] Last Admin: 06/23/18 10:50 Dose: 200 mg Topiramate (Topamax -) 25 mg NR DAILY [facility] Last Admin: 06/23/18 10:50 Dose: 25 mg Valproate Sodium (Depakene -) 750 mg GT BID [facility] Last Admin: 06/23/18 10:49 Dose: 750 mg - Objective Vital Signs: Vital Signs Temperature 98.4 F 06/23/18 09:49 Pulse Rate 79 06/23/18 09:49 Respiratory Rate 18 06/23/18 09:49 Blood Pressure 110/65 06/23/18 09:49 O2 Sat by Pulse Oximetry (%) 96 06/23/18 12:36 Constitutional: Yes: No Distress, Calm Cardiovascular: Yes: Regular Rate and Rhythm Gastrointestinal: Yes: Normal Bowel Sounds, Soft, Other (peg in place) Musculoskeletal: Yes: WNL Extremities: Yes: WNL Psychiatric: Yes: Other Labs: CBC, BMP 06/19/18 06:00 06/21/18 06:00 INR, PTT INR 1.02 (0.83-1.09) 06/12/18 16:07 Assessment/Plan Problem List - Problems (1) Acute respiratory failure with hypoxia Code(s): J96.01 - ACUTE RESPIRATORY FAILURE WITH HYPOXIA (2) Anoxic brain damage Code(s): G93.1 - ANOXIC BRAIN DAMAGE, NOT ELSEWHERE CLASSIFIED (3) Aspiration pneumonia Code(s): J69.0 - PNEUMONITIS DUE TO INHALATION OF FOOD AND VOMIT (4) COPD exacerbation Code(s): J44.1 - CHRONIC OBSTRUCTIVE PULMONARY DISEASE W (ACUTE) EXACERBATION (5) Fracture of left humerus Code(s): S42.302A - UNSP FRACTURE OF SHAFT OF HUMERUS, LEFT ARM, INIT (6) Functional quadriplegia Code(s): R53.2 - FUNCTIONAL QUADRIPLEGIA (7) HLD (hyperlipidemia) Code(s): E78.5 - HYPERLIPIDEMIA, UNSPECIFIED (8) HTN (hypertension) Code(s): I10 - ESSENTIAL (PRIMARY) HYPERTENSION (9) Scoliosis deformity of spine Code(s): M41.9 - SCOLIOSIS, UNSPECIFIED (10) Seizure disorder Code(s): G40.909 - EPILEPSY, UNSP, NOT INTRACTABLE, WITHOUT STATUS EPILEPTICUS (11) Shortness of breath Code(s): R06.02 - SHORTNESS OF BREATH uti Assessment/Plan PNA - suspected Aspiration UTI Respiratory distress - on BIPAP Fever Leukocytosis LUE fracture Anoxic brain injury Functional Quadriplegia HTN HLD Seizure d.o. COPD plan stable off of abx continue current mgmt rest as per the team
[2018-06-23] MEDS ORDERED: PT OWN MED DRAWER 7, Y5N ONE (13:11)
[2018-06-23] MEDS: ATORVASTATIN CA 20 MG TABLET (FP) GT SCH (22:20)
[2018-06-23] MEDS: CALCIUM 500MG/VIT-D 200 UNITS COMBO TABLET (FP) GT SCH (22:20)
[2018-06-24] MEDS: methylPREDNISolone NA SUCC 40 MG/1 ML VIAL IVPUSH SCH ×2 (01:33→10:17)
[2018-06-24] MEDS: ZINC OXIDE 20% TOPICAL OINTMENT 30 GM TUBE TP SCH ×2 (05:07→14:33)
[2018-06-24 07:26] LABS: BASO % 0.4 % (0-2.0); EOS % 0.1 % (0-4.5); HEMOGLOBIN 12.7 GM/dL (10.7-15.3); LYMPH % 7.9 % (8-40); MCH 31.2 pg (25.7-33.7); MCHC 33.4 g/dl (32.0-36.0); MEAN CELL VOLUME 93.3 fl (80-96); MEAN PLT VOLUME 8.7 fl (7.5-11.1); MONO % 6.7 % (3.8-10.2); NEUT % 84.9 % (42.8-82.8); PLATELET COUNT 269 K/MM3 (134-434); RBC 4.07 M/mm3 (3.60-5.2); RDW 14.5 % (11.6-15.6); WHITE BLOOD COUNT 9.8 K/mm3 (4.0-10.0)
[2018-06-24] MEDS: ALBUTEROL SO4 2.5/IPRATROPIUM 0.5 INH SOL 3 ML VIAL.NEB. NEB SCH ×3 (07:49→15:50)
[2018-06-24] MEDS: BUDESONIDE 0.5 MG/2 ML INH SUSP VIAL NEB SCH (07:50)
[2018-06-24 07:54] LABS: ALBUMIN 2.7 g/dl (3.4-5.0); ALK PHOS 356 U/L (45-117); ANION GAP 5 MMOL/L (8-16); BILIRUBIN,TOTAL 0.2 mg/dL (0.2-1); BLOOD UREA NITROGEN 19 mg/dL (7-18); CALCIUM 8.9 mg/dL (8.5-10.1); CHLORIDE 91 mmol/L (98-107); CO2 41 mmol/L (21-32); CREATININE 0.3 mg/dL (0.55-1.3); GLUCOSE,RANDOM 122 mg/dL (74-106); POTASSIUM 4.3 mmol/L (3.5-5.1); SGOT/AST 18 U/L (15-37); SGPT/ALT 21 U/L (13-61); SODIUM 137 mmol/L (136-145); TOT PROT 6.6 g/dl (6.4-8.2)
[2018-06-24] MEDS ORDERED: PT OWN MED DRAWER 7, Y5N ONE (10:03)
[2018-06-24] MEDS: VALPROATE SODIUM 250 MG/5 ML UNIT DOSE CUP GT SCH (10:15)
[2018-06-24] MEDS: ASCORBIC ACID 500 MG TABLET (FP) GT SCH (10:16)
[2018-06-24] MEDS: METOPROLOL TARTRATE 25 MG TABLET (FP) GT SCH (10:16)
[2018-06-24] MEDS: amLODIPine BESYLATE 5 MG TABLET (FP) GT SCH (10:16)
[2018-06-24] MEDS: LACTOBACILLUS ACIDOPHILUS 1 TABLET PO SCH (10:16)
[2018-06-24] MEDS: TOPIRAMATE 25 MG TABLET (FP) NR SCH (10:16)
[2018-06-24] MEDS: METOCLOPRAMIDE HCL 5 MG/5 ML UNIT DOSE CUP GT SCH ×3 (10:16→17:10)
[2018-06-24] MEDS: ENOXAPARIN NA (PORCINE) 40 MG/0.4 ML DISP.SYRIN SQ SCH (10:17)
[2018-06-24] MEDS: levETIRAcetam 500 MG/5 ML ORAL SOLUTION (UNIT-DOSE CUPS) PO SCH (10:18)
[2018-06-24] MEDS: PANTOPRAZOLE SODIUM 40 MG VIAL IVPUSH SCH (10:18)
[2018-06-24] MEDS: PHENobarbital 30 MG TABLET GT SCH (10:18)
[2018-06-24] MEDS: TOPIRAMATE 200 MG TABLET (FP) GT SCH (10:19)
[2018-06-24] MEDS: SILVER SULFADIAZINE 1% TOP CREAM 50 GM JAR TP SCH (10:34)
--- NOTE | 2018-06-24 11:17 | PN ---
Progress Note, Physician History of Present Illness: patient doing much better more awake and alert calm - Current Medication List Current Medications: Active Medications Albuterol Sulfate (Ventolin 0.083% Nebulizer Soln -) 1 amp NEB Q4H PRN PRN Reason: SHORT OF BREATH/WHEEZING Albuterol/Ipratropium (Duoneb -) 1 amp NEB RQID [facility] Last Admin: 06/24/18 07:49 Dose: 1 amp Amlodipine Besylate (Norvasc -) 5 mg GT DAILY [facility] Last Admin: 06/24/18 10:16 Dose: 5 mg Ascorbic Acid (Vitamin C -) 500 mg GT BID [facility] Last Admin: 06/24/18 10:16 Dose: 500 mg Atorvastatin Calcium (Lipitor -) 20 mg GT HS [facility] Last Admin: 06/23/18 22:20 Dose: 20 mg Budesonide (Pulmicort 0.5 Mg Nebulizer -) 1 amp NEB RBID [facility] Last Admin: 06/24/18 07:50 Dose: 1 amp Calcium Carbonate/Cholecalciferol (Os-Jamar 500+D -) 2 tab GT HS [facility] Last Admin: 06/23/18 22:20 Dose: 2 tab Enoxaparin Sodium (Lovenox -) 40 mg SQ DAILY [facility] Last Admin: 06/24/18 10:17 Dose: 40 mg Lactobacillus Acidophilus (Bacid -) 1 tab PO BID [facility] Last Admin: 06/24/18 10:16 Dose: 1 tab Levetiracetam (Keppra Oral Solution -) 1,500 mg PO BID [facility] Last Admin: 06/24/18 10:18 Dose: 1,500 mg Methylprednisolone Sodium Succinate (Solu-Medrol -) 40 mg IVPUSH Q8H-IV [facility] Last Admin: 06/24/18 10:17 Dose: 40 mg Metoclopramide HCl (Reglan Oral Solution -) 5 mg GT QID [facility] Last Admin: 06/24/18 10:16 Dose: 5 mg Metoprolol Tartrate (Lopressor Injection -) 5 mg IVPB Q4H PRN PRN Reason: HYPERTENSION Metoprolol Tartrate (Lopressor -) 25 mg GT BID [facility] Last Admin: 06/24/18 10:16 Dose: 25 mg Multi-Ingredient Ointment (Zinc Oxide) 1 applic TP TID [facility] Last Admin: 06/24/18 05:07 Dose: 1 applic Pantoprazole Sodium (Protonix Iv) 40 mg IVPUSH DAILY [facility] Last Admin: 06/24/18 10:18 Dose: 40 mg Phenobarbital (Phenobarbital -) 30 mg GT BID [facility] Last Admin: 06/24/18 10:18 Dose: 30 mg Scopolamine HBr (Transderm-Scop -) 1 patch TD Q72H [facility] Last Admin: 06/22/18 11:05 Dose: 1 patch Silver Sulfadiazine (Silvadene -) 1 applic TP DAILY [facility] Last Admin: 06/23/18 10:51 Dose: Not Given Topiramate (Topamax -) 200 mg GT BID [facility] Last Admin: 06/24/18 10:19 Dose: 200 mg Topiramate (Topamax -) 25 mg NR DAILY [facility] Last Admin: 06/24/18 10:16 Dose: 25 mg Valproate Sodium (Depakene -) 750 mg GT BID [facility] Last Admin: 06/24/18 10:15 Dose: 750 mg - Objective Vital Signs: Vital Signs Temperature 97.6 F 06/24/18 06:00 Pulse Rate 76 06/24/18 06:00 Respiratory Rate 20 06/24/18 06:00 Blood Pressure 125/65 06/24/18 06:00 O2 Sat by Pulse Oximetry (%) 97 06/23/18 21:00 Constitutional: Yes: No Distress, Calm Neck: Yes: Supple Cardiovascular: Yes: Regular Rate and Rhythm Respiratory: Yes: Regular, On Nasal O2, Poor Air Entry (bases) Gastrointestinal: Yes: Normal Bowel Sounds, Soft, Other (peg) Musculoskeletal: Yes: WNL Extremities: Yes: Other Neurological: Yes: Alert, Other Labs: CBC, BMP 06/24/18 06:40 06/24/18 06:40 INR, PTT INR 1.02 (0.83-1.09) 06/12/18 16:07 Assessment/Plan Problem List - Problems (1) Acute respiratory failure with hypoxia Code(s): J96.01 - ACUTE RESPIRATORY FAILURE WITH HYPOXIA (2) Anoxic brain damage Code(s): G93.1 - ANOXIC BRAIN DAMAGE, NOT ELSEWHERE CLASSIFIED (3) Aspiration pneumonia Code(s): J69.0 - PNEUMONITIS DUE TO INHALATION OF FOOD AND VOMIT (4) COPD exacerbation Code(s): J44.1 - CHRONIC OBSTRUCTIVE PULMONARY DISEASE W (ACUTE) EXACERBATION (5) Fracture of left humerus Code(s): S42.302A - UNSP FRACTURE OF SHAFT OF HUMERUS, LEFT ARM, INIT (6) Functional quadriplegia Code(s): R53.2 - FUNCTIONAL QUADRIPLEGIA (7) HLD (hyperlipidemia) Code(s): E78.5 - HYPERLIPIDEMIA, UNSPECIFIED (8) HTN (hypertension) Code(s): I10 - ESSENTIAL (PRIMARY) HYPERTENSION (9) Scoliosis deformity of spine Code(s): M41.9 - SCOLIOSIS, UNSPECIFIED (10) Seizure disorder Code(s): G40.909 - EPILEPSY, UNSP, NOT INTRACTABLE, WITHOUT STATUS EPILEPTICUS (11) Shortness of breath Code(s): R06.02 - SHORTNESS OF BREATH uti Assessment/Plan PNA - suspected Aspiration UTI Respiratory distress - on BIPAP Fever Leukocytosis LUE fracture Anoxic brain injury Functional Quadriplegia HTN HLD Seizure d.o. COPD plan stable off of abx continue current mgmt rest as per the team
--- NOTE | 2018-06-24 11:26 | PN ---
Progress Note (short form) - Note Progress Note: PULMONARY Pt nonverbal. No fevers recorded. Vital Signs Period Temp Pulse Resp BP Sys/Restrepo Pulse Ox Last 24 Hr 97.6 F-98.6 F 72-77 18-20 116-125/63-68 96-97 Gen: NAD at rest, breathing nonlabored Heart: RRR Lung: decreased breath sounds at the bases Abd: soft, nontender Ext: no edema CBC, BMP 06/24/18 06:40 06/24/18 06:40 Active Medications Albuterol Sulfate (Ventolin 0.083% Nebulizer Soln -) 1 amp NEB Q4H PRN PRN Reason: SHORT OF BREATH/WHEEZING Albuterol/Ipratropium (Duoneb -) 1 amp NEB RQID [facility] Last Admin: 06/24/18 11:23 Dose: 1 amp Amlodipine Besylate (Norvasc -) 5 mg GT DAILY [facility] Last Admin: 06/24/18 10:16 Dose: 5 mg Ascorbic Acid (Vitamin C -) 500 mg GT BID [facility] Last Admin: 06/24/18 10:16 Dose: 500 mg Atorvastatin Calcium (Lipitor -) 20 mg GT HS [facility] Last Admin: 06/23/18 22:20 Dose: 20 mg Budesonide (Pulmicort 0.5 Mg Nebulizer -) 1 amp NEB RBID [facility] Last Admin: 06/24/18 07:50 Dose: 1 amp Calcium Carbonate/Cholecalciferol (Os-Jamar 500+D -) 2 tab GT HS [facility] Last Admin: 06/23/18 22:20 Dose: 2 tab Enoxaparin Sodium (Lovenox -) 40 mg SQ DAILY [facility] Last Admin: 06/24/18 10:17 Dose: 40 mg Lactobacillus Acidophilus (Bacid -) 1 tab PO BID [facility] Last Admin: 06/24/18 10:16 Dose: 1 tab Levetiracetam (Keppra Oral Solution -) 1,500 mg PO BID [facility] Last Admin: 06/24/18 10:18 Dose: 1,500 mg Methylprednisolone Sodium Succinate (Solu-Medrol -) 40 mg IVPUSH Q8H-IV [facility] Last Admin: 06/24/18 10:17 Dose: 40 mg Metoclopramide HCl (Reglan Oral Solution -) 5 mg GT QID [facility] Last Admin: 06/24/18 10:16 Dose: 5 mg Metoprolol Tartrate (Lopressor Injection -) 5 mg IVPB Q4H PRN PRN Reason: HYPERTENSION Metoprolol Tartrate (Lopressor -) 25 mg GT BID [facility] Last Admin: 06/24/18 10:16 Dose: 25 mg Multi-Ingredient Ointment (Zinc Oxide) 1 applic TP TID [facility] Last Admin: 06/24/18 05:07 Dose: 1 applic Pantoprazole Sodium (Protonix Iv) 40 mg IVPUSH DAILY [facility] Last Admin: 06/24/18 10:18 Dose: 40 mg Phenobarbital (Phenobarbital -) 30 mg GT BID [facility] Last Admin: 06/24/18 10:18 Dose: 30 mg Scopolamine HBr (Transderm-Scop -) 1 patch TD Q72H [facility] Last Admin: 06/22/18 11:05 Dose: 1 patch Silver Sulfadiazine (Silvadene -) 1 applic TP DAILY [facility] Last Admin: 06/23/18 10:51 Dose: Not Given Topiramate (Topamax -) 200 mg GT BID [facility] Last Admin: 06/24/18 10:19 Dose: 200 mg Topiramate (Topamax -) 25 mg NR DAILY [facility] Last Admin: 06/24/18 10:16 Dose: 25 mg Valproate Sodium (Depakene -) 750 mg GT BID [facility] Last Admin: 06/24/18 10:15 Dose: 750 mg A/P Acute on Chronic Hypoxic Respiratory Failure r/o Pneumonia Acute COPD Exacerbation Anoxic Brain Injury Seizure Disorder - completed antibiotics - BiPAP as needed - will change steroids to PO prednisone - inhaled bronchodilators - O2 to keep SpO2 >90% - aspiration precautions - DVT prophylaxis Problem List - Problems (1) Acute and chronic respiratory failure with hypoxia Code(s): J96.21 - ACUTE AND CHRONIC RESPIRATORY FAILURE WITH HYPOXIA (2) COPD exacerbation Code(s): J44.1 - CHRONIC OBSTRUCTIVE PULMONARY DISEASE W (ACUTE) EXACERBATION (3) Functional quadriplegia Code(s): R53.2 - FUNCTIONAL QUADRIPLEGIA (4) HLD (hyperlipidemia) Code(s): E78.5 - HYPERLIPIDEMIA, UNSPECIFIED (5) HTN (hypertension) Code(s): I10 - ESSENTIAL (PRIMARY) HYPERTENSION
--- NOTE | 2018-06-24 11:28 | PN ---
Progress Note (short form) - Note Progress Note: ORTHOPEDIC SURGERY PROGRESS NOTE Department of Orthopedic Surgery SUBJECTIVE Nonverbal. Alert and awake. Intake & Output 06/22/18 06/23/18 06/24/18 23:59 23:59 23:59 Intake Total 1110 1360 680 Balance 1110 1360 680 Intake: IVPB 30 Tube Feeding 660 760 330 Tube Irrigant 420 600 350 Other: Voiding Method Incontinent Incontinent # Unmeasured Voids Void 3 1 Bowel Movement Yes No # Bowel Movements 1 Active Medications Generic Name Dose Route Start Last Admin Trade Name Freq PRN Reason Stop Dose Admin Albuterol Sulfate 1 amp 06/16/18 11:52 Ventolin 0.083% Nebulizer Soln - NEB Q4H PRN SHORT OF BREATH/WHEEZING Albuterol/Ipratropium 1 amp 06/16/18 12:00 06/24/18 07:49 Duoneb - NEB 1 amp RQID [facility] Administration Amlodipine Besylate 5 mg 06/17/18 09:00 06/24/18 10:16 Norvasc - GT 5 mg DAILY [facility] Administration Ascorbic Acid 500 mg 06/12/18 22:00 06/24/18 10:16 Vitamin C - GT 500 mg BID [facility] Administration Atorvastatin Calcium 20 mg 06/13/18 22:00 06/23/18 22:20 Lipitor - GT 20 mg HS [facility] Administration Budesonide 1 amp 06/18/18 08:00 06/24/18 07:50 Pulmicort 0.5 Mg Nebulizer - NEB 1 amp RBID [facility] Administration Calcium Carbonate/Cholecalciferol 2 tab 06/12/18 22:00 06/23/18 22:20 Os-Jamar 500+D - GT 2 tab HS [facility] Administration Enoxaparin Sodium 40 mg 06/20/18 12:00 06/24/18 10:17 Lovenox - SQ 40 mg DAILY [facility] Administration Lactobacillus Acidophilus 1 tab 06/18/18 10:00 06/24/18 10:16 Bacid - PO 1 tab BID [facility] Administration Levetiracetam 1,500 mg 06/18/18 22:00 06/24/18 10:18 Keppra Oral Solution - PO 1,500 mg BID [facility] Administration Methylprednisolone Sodium Succinate 40 mg 06/16/18 12:00 06/24/18 10:17 Solu-Medrol - IVPUSH 40 mg Q8H-IV [facility] Administration Metoclopramide HCl 5 mg 06/12/18 22:00 06/24/18 10:16 Reglan Oral Solution - GT 5 mg QID [facility] Administration Metoprolol Tartrate 5 mg 06/15/18 09:49 Lopressor Injection - IVPB Q4H PRN HYPERTENSION Metoprolol Tartrate 25 mg 06/21/18 22:00 06/24/18 10:16 Lopressor - GT 25 mg BID [facility] Administration Multi-Ingredient Ointment 1 applic 06/12/18 22:00 06/24/18 05:07 Zinc Oxide TP 1 applic TID [facility] Administration Pantoprazole Sodium 40 mg 06/13/18 10:00 06/24/18 10:18 Protonix Iv IVPUSH 40 mg DAILY [facility] Administration Phenobarbital 30 mg 06/12/18 22:00 06/24/18 10:18 Phenobarbital - GT 30 mg BID [facility] Administration Scopolamine HBr 1 patch 06/13/18 10:00 06/22/18 11:05 Transderm-Scop - TD 1 patch Q72H [facility] Administration Silver Sulfadiazine 1 applic 06/13/18 10:00 06/23/18 10:51 Silvadene - TP Not Given DAILY [facility] Topiramate 200 mg 06/12/18 22:00 06/24/18 10:19 Topamax - GT 200 mg BID [facility] Administration Topiramate 25 mg 06/13/18 10:00 06/24/18 10:16 Topamax - NR 25 mg DAILY [facility] Administration Valproate Sodium 750 mg 06/12/18 22:00 06/24/18 10:15 Depakene - GT 750 mg BID [facility] Administration Vital Signs (last) Temp Pulse Resp BP Pulse Ox 97.6 F 76 20 125/65 97 06/24/18 06:00 06/24/18 06:00 06/24/18 06:00 06/24/18 06:00 06/23/18 21:00 Laboratory (coagulation) PT with INR 12.00 SEC (9.7-13.0) 06/12/18 16:07 Laboratory 06/24/18 06:40 06/24/18 06:40 PHYSICAL EXAM Left Upper Extremity: Skin warm, dry, and intact; no lesions, rashes or ulcers noted. No tenderness to palpation or motion at the fracture site. Limited passive range of motion of the shoulder and elbow secondary to stiffness. 2+ radial pulses; Cap refill brisk. DVT Exam: No evidence of DVT seen on physical exam; No cords or calf tenderness ; No significant calf/ankle edema. IMAGING I personally reviewed radiographs of the left humerus. They demonstrate a healing humeral shaft fracture in adequate alignment. There is bridging callus formation at the fracture site. ASSESSMENT AND PLAN Neli Perkins is a 67 year old non-verbal female with a healed left sided humeral shaft fracture. The date of injury is unknown, however as per her medical records she has been in a fracture brace since 04/02/18 (12 weeks ago). - Discontinue fracture brace - Continue with physical therapy: WBAT LUE; Free ROM of the left shoulder as tolerated with the brace. Elbow, wrist, and finger ROM as tolerated. - DVT prophylaxis - Appreciate medical management - Decubitus precautions (heel/sacrum) Thank you for involving our team in the care of this patient. Please have patient follow up in our office in 1-2 weeks [phone].
--- NOTE | 2018-06-24 13:25 | DS ---
Physical Exam: SUBJECTIVE: Patient seen and examined this AM. Saturating well on nasal canulla. No acute overnight events as per nursing. OBJECTIVE: Vital Signs Period Temp Pulse Resp BP Sys/Restrepo Pulse Ox Last 24 Hr 97.6 F-98.6 F 72-83 18-20 116-125/63-80 95-97 PHYSICAL EXAM GENERAL: NAD HEAD: Microcephaly EYES: PERRL ENT: Moist mucous membranes NECK: No JVD LUNGS: CTA B/L, Diminished breath sounds at the bases, no wheezes, no crackles HEART: RRR, S1, S2 without murmur ABDOMEN: Soft, mildly distended, + bowel sounds, GTube present on the left without surrounding erythema or drainage EXTREMITIES: All extremities contracted, 1+ right pedal edema NEUROLOGICAL: Sleepy SKIN: Warm, Dry LABS Laboratory Results - last 24 hr 06/24/18 06/24/18 06:40 06:40 WBC 9.8 RBC 4.07 Hgb 12.7 Hct 38.0 MCV 93.3 MCH 31.2 MCHC 33.4 RDW 14.5 Plt Count 269 MPV 8.7 D Absolute Neuts (auto) 8.3 H Neutrophils % 84.9 H Lymphocytes % 7.9 L Monocytes % 6.7 D Eosinophils % 0.1 D Basophils % 0.4 D Nucleated RBC % 0 Sodium 137 Potassium 4.3 Chloride 91 L Carbon Dioxide 41 H Anion Gap 5 L BUN 19 H Creatinine 0.3 L Creat Clearance w eGFR 223.27 Random Glucose 122 H Calcium 8.9 Total Bilirubin 0.2 AST 18 ALT 21 Alkaline Phosphatase 356 H Total Protein 6.6 Albumin 2.7 L Microbiology 06/12/18 17:30 Blood - Peripheral Venous Blood Culture - Final NO GROWTH AFTER 5 DAYS INCUBATION 06/12/18 17:30 Blood - Peripheral Venous Blood Culture - Final NO GROWTH AFTER 5 DAYS INCUBATION 06/12/18 18:49 Urine - Urine Clean Catch Urine Culture - Final Pseudomonas Aeruginosa 06/12/18 19:05 Urine For Antigen Detection Legionella Antigen - Final 06/12/18 19:05 Urine For Antigen Detection Streptococcus pneumoniae Antigen (M - Final IMAGING: -Left Humerus: 2 views of the left humerus reveal a healing fracture deformity of the mid shaft of the left humerus. There is some displacement at the fracture site as shown in one view. The imaging is available for review. -CXR (06/12): No significant interval change or gross acute lung disease is present. -CXR (06/15): Single AP view of the chest has been submitted. Since 06/12/2018, again noted is a scoliosis with convexity to the left, prominent mediastinum and some chronic pleural reaction and atelectasis at the left base. There is elevated right hemidiaphragm with distended bowel. Correlation recommended. -KUB: A single view the abdomen has been obtained. There is motion artifact, G- tube, abdominal distention, motion artifact, degenerative changes and a prior left hip stabilization with hardware. Distended bowel could represent an early obstructive process. For more complete evaluation, better imaging with CT may be of help HOSPITAL COURSE: Date of Admission:06/12/18 Date of Discharge: 06/24/18 67 y/o non-verbal Female with PMHx of anoxic brain injury, COPD (on 4L at home) , seizures presented with shortness of breath. Imaging and Microbiology noted above. On admission, she was found to be in Sepsis due to a Pseudomonas Aeruginosa UTI. Infectious disease was consulted and patient completed a course of IV Piperacillin/Tazobactam; She remained afebrile and without leukocytosis during her stay. Patient was SOB requiring supplemental O2 and bronchodilators; Eventually she was found to be in respiratory distress and her ABG revealed hypercapnia. Pulmonary was consulted, she was started on NIPPV and completed a course of IV Steroids. Her SOB improved and her respiratory distress resolved. Patient presented with a Chronic L arm fracture for which Ortho was consulted. Her home Anti-HTN meds were adjusted; She continued her other home meds. Signout was given to Dr. Vasquez ([phone]) at [facility]. Patient was discharged on supplemental home O2 (at baseline 4L), Prednisone taper, and further instructions for follow up and activity. Minutes to complete discharge: 36 Discharge Summary Reason For Visit: Shortness of Breath Current Active Problems Acute and chronic respiratory failure with hypoxia (Acute) Acute respiratory failure with hypoxia (Acute) Fracture of left humerus (Chronic) Condition: Improved - Instructions Diet, Activity, Other Instructions: You were admitted to the hospital because you had a urinary tract infection and copd exacerbation. You were seen by a sweeper brush maker machine and Infectious disease doctor; You were treated with IV Antibiotics, IV Steroids, and Bipap as needed, and your symptoms improved. Medication Changes: 1. Stop taking Lactulose 2. Your Metoprolol Tartrate (Lopressor) dose has been changed to 25mg BID 3. Continue taking Bacid, 1 tablet twice a day 4. Continue to use Ventolin inhaler as needed 5. Your steroid (Prednisone) taper is as follows 40mg daily for 2 days (06/25-06/26) 30mg daily for 2 days (06/27-06/28) 20mg daily for 2 days (06/29-06/30) 10mg daily for 2 days (07/01-07/02) Additional Care 1. Discontinue fracture brace 2. Continue with physical therapy: Weight bearing as toleratedfor Left Upper extremity; Free ROM of the left shoulder as tolerated with the brace. Elbow, wrist, and finger ROM as tolerated. Follow up with the following physicians: 1. Primary care physician in one week 2. Internal Medicine Physician in one week 3. Orthopedic Surgery--Dr. Black ([phone])--in 1-2 weeks to further manage your chronic left humerus fracture Continue all your other medications as prescribed Please return to the ER if you have any signs or symptoms of chest pain, shortness of breath, uncontrollable fever, chills, nausea, vomiting, numbness, tingling, or weakness in any part of your body, changes in vision, slurred speech, changes in speech/gait, or dizziness. Please return to the ER if symptoms persist, worsen, or new symptoms arise. Referrals: Dedrick Guerra MD [Staff Physician] - Jean-Paul Blcak DO [Staff Physician] - Disposition: [facility] - Home Medications Comprehensive Discharge Medication List: Ambulatory Orders Alendronate Sodium [Binosto] 70 mg GT WEEKLY 06/12/18 Amlodipine Besylate 2.5 mg GT DAILY 06/12/18 Arformoterol Tartrate [Brovana] 1 vial NEB BID 06/12/18 Ascorbic Acid 500 mg GT BID 06/12/18 Budesonide [Pulmicort 0.5 mg Nebulizer -] 1 vial NEB BID 06/12/18 Calcium Carbonate/Vitamin D3 [Oystercal-D 500 mg-400 Unit Tb] 2 each GT HS 06/12 Calcium Carbonate/Vitamin D3 [Oystercal-D 500 mg-400 Unit Tb] 2 tablet GT HS 12/21 Ipratropium/Albuterol Sulfate [Iprat-Albut 0.5-3(2.5) mg/3 ml] 1 vial NEB QID Metoclopramide HCl 5 mg GT QID 06/12/18 Omeprazole 20 mg GT DAILY 06/12/18 Phenobarbital 32.4 mg GT BID 06/12/18 Protein Supplement [Promod] 30 ml GT DAILY 06/12/18 Scopolamine 1 each TD Q72H 06/12/18 Scopolamine [Transderm-Scop] 1 each TD Q72H 06/12/18 Silver Sulfadiazine [Silvadene] 20 gm TP DAILY 06/12/18 Simvastatin 40 mg GT DAILY 06/12/18 Topiramate 25 mg GT DAILY 06/12/18 Topiramate 200 mg GT BID 06/12/18 Valproate Sodium [Depakene -] 15 ml GT BID 06/12/18 Zinc Oxide 1 applic TP TID 06/12/18 levETIRAcetam [levETIRAcetam ORAL SUSPENSION] 15 ml GT BID 06/12/18 Albuterol 0.083% Nebulizer [place] [Ventolin 0.083% Nebulizer Soln -] 1 amp NEB Q4H PRN #1 amp 06/24/18 Lactobacillus Acidophilus [Bacid -] 1 tab PO BID #60 tab 06/24/18 Metoprolol Tartrate [Lopressor -] 25 mg GT BID #60 tablet 06/24/18 predniSONE [Deltasone -] See Taper PO ASDIR #20 tab 06/24/18 This patient is new to me today: No Emergency Visit: Yes ED Registration Date: 06/12/18 Care time: The patient presented to the Emergency Department on the above date and was hospitalized for further evaluation of their emergent condition. Critical Care patient: No - Discharge Referral Referred to [facility] Med [facility].: No
--- NOTE | 2018-06-24 13:50 | PN ---
Teaching Attending Note Name of Resident: Melania Marin ATTENDING PHYSICIAN STATEMENT I saw and evaluated the patient. I reviewed the resident's note and discussed the case with the resident. I agree with the resident's findings and plan as documented. SUBJECTIVE: No events over night OBJECTIVE: NAD, comfortable CV : RRR Lungs: CTAB , decreased breth sounds b/l bases Ext : No edema , + muscular atrophy ASSESSMENT AND PLAN: 67 y/o lady with h/o anoxic brain injury, seizures, HLP, HTN, GT placement, and COPD who presented with L Hypoxia 1- Acute hypoxic resp failure, due to Acute COPD exacerbation and possible aspiration PNA -finished PNA treatment - steroids ( switch to prednisone) - nebs 2- Sepsis due to pseudomonas UTI and possible aspiration PNA - off Abx 3- L humerus Fx: appreciate ortho input. dc brace 4- Seizure disorder : cont her home meds 5- HTN: cont meds 6- TF with jevity dispo : dc to [facility] today
[2018-06-24 17:46] VITALS: BP 136/80; PULSE 86; TEMP 98
[2018-06-25] MEDS ORDERED: predniSONE 20 MG TABLET (UD) PO SCH (10:00)
== END 2018-06-24 18:58 | disposition home or self-care (01) | DRG 871 ==
LOC: JER 14:29 → JERBED 16:56 → J5S 20:25
PROVIDERS: ADMIT Internal Medicine; ATTEND Internal Medicine
DX: A41.9 Sepsis, unspecified organism (principal); J69.0 Pneumonitis due to inhalation of food and vomit; J96.21 Acute and chronic respiratory failure with hypoxia; R53.2 Functional quadriplegia; J44.1 Chronic obstructive pulmonary disease with (acute) exacerbation; N39.0 Urinary tract infection, site not specified; G93.1 Anoxic brain damage, not elsewhere classified; Z93.1 Gastrostomy status; D72.829 Elevated white blood cell count, unspecified; R00.0 Tachycardia, unspecified; J44.9 Chronic obstructive pulmonary disease, unspecified; B96.5 Pseudomonas (aeruginosa) (mallei) (pseudomallei) as the cause of diseases classified elsewhere; E78.5 Hyperlipidemia, unspecified; E87.6 Hypokalemia; K21.9 Gastro-esophageal reflux disease without esophagitis; I16.0 Hypertensive urgency; G40.909 Epilepsy, unspecified, not intractable, without status epilepticus
CPT/HCPCS: 36415; 36600; 71045-TC-FY; 73060-TC-LT-FY; 74018-TC-FY; 80048; 80053; 81003; 82803; 83605; 83735; 84100; 85025; 85027; 85610; 85730; 87040; 87086; 87186; 87804; 87807; 87899; 93005; 93010; 94640; 94660; 99285-25

== ENCOUNTER 2018-06-26 11:21 | Inpatient (IN) | payer OTHER ==
[2018-06-26] MEDS ORDERED: ALBUTEROL SO4 2.5/IPRATROPIUM 0.5 INH SOL 3 ML VIAL.NEB. NEB ONE ×2 (11:45→11:59)
[2018-06-26] MEDS ORDERED: methylPREDNISolone NA SUCC 125 MG/2 ML VIAL IVPUSH ONE (11:45)
[2018-06-26] MEDS ORDERED: methylPREDNISolone NA SUCC 125 MG/2 ML VIAL ONE (11:59)
[2018-06-26 12:25] LABS: BASO % 0.3 % (0-2.0); EOS % 0.3 % (0-4.5); HEMATOCRIT 39.2 % (32.4-45.2); HEMOGLOBIN 13.1 GM/dL (10.7-15.3); LYMPH % 3.5 % (8-40); MCHC 33.3 g/dl (32.0-36.0); MEAN CELL VOLUME 93.1 fl (80-96); MEAN PLT VOLUME 7.4 fl (7.5-11.1); MONO % 15.6 % (3.8-10.2); NEUT % 80.3 % (42.8-82.8); PLATELET COUNT 315 K/MM3 (134-434); RBC 4.21 M/mm3 (3.60-5.2); RDW 14.6 % (11.6-15.6); WHITE BLOOD COUNT 17.3 K/mm3 (4.0-10.0)
--- NOTE | 2018-06-26 12:30 | EKG ---
Test Reason : Blood Pressure : / mmHG Vent. Rate : 100 BPM Atrial Rate : 100 BPM P-R Int : 108 ms QRS Dur : 062 ms QT Int : 308 ms P-R-T Axes : 058 070 040 degrees QTc Int : 397 ms POOR DATA QUALITY, INTERPRETATION MAY BE ADVERSELY AFFECTED SINUS RHYTHM WITH SHORT IL OTHERWISE NORMAL ECG WHEN COMPARED WITH ECG OF 12-JUN-2018 15:36, NO SIGNIFICANT CHANGE WAS FOUND Confirmed by MARV LEY, CHARLY ([id number]) on 06/26/2018 12:29:41 PM Referred By: Confirmed By:CHARLY FAIR MD
[2018-06-26 12:56] LABS: ALBUMIN 2.8 g/dl (3.4-5.0); ALK PHOS 421 U/L (45-117); ANION GAP 5 MMOL/L (8-16); BILIRUBIN,TOTAL 0.2 mg/dL (0.2-1); BLOOD UREA NITROGEN 19 mg/dL (7-18); CALCIUM 9.2 mg/dL (8.5-10.1); CHLORIDE 90 mmol/L (98-107); CO2 40 mmol/L (21-32); CREATININE 0.4 mg/dL (0.55-1.3); GLUCOSE,RANDOM 151 mg/dL (74-106); N-TERMINAL BNP 282.8 pg/ml (5-125); POTASSIUM 3.9 mmol/L (3.5-5.1); SGOT/AST 28 U/L (15-37); SGPT/ALT 34 U/L (13-61); SODIUM 136 mmol/L (136-145); TOT PROT 6.8 g/dl (6.4-8.2)
[2018-06-26 13:07] LABS: ARTERIAL BLD GAS O2 SATURATION 97.3 % (95-98); ARTERIAL BLOOD GAS BASE EXCESS 10.4 meq/l (-2-2); ARTERIAL BLOOD GAS PO2 98.8 mmHg (80-105); ARTERIAL BLOOD GAS pH 7.34 (7.35-7.45)
[2018-06-26 13:12] LABS: ALLENS TEST POSITIVE
[2018-06-26 13:30] LABS: ARTERIAL BLOOD GAS PCO2 73.5 mmHg (35-45)
[2018-06-26] MEDS ORDERED: morphine CARPU-JECT 4 MG/1 ML DISP.SYRIN IVPUSH ONE (13:55)
--- NOTE | 2018-06-26 14:35 | PDOC ---
Documentation entered by Melanie Mayfield SCRIBE, acting as scribe for Jonelle Coombs MD. Jonelle Coombs MD: This documentation has been prepared by the lisethibe, Melanie Mayfield SCRIBE, under my direction and personally reviewed by me in its entirety. I confirm that the documentation accurately reflects all work, treatment, procedures, and medical decision making performed by me. History of Present Illness - General Stated Complaint: Respiratory Time Seen by Provider: 06/26/18 11:34 - History of Present Illness Initial Comments: 06/26/18 11:40 67 yo F h/o anoxic brain injury bed bound severe copd requiring bipap, recently admitted to [facility] from 06/12 - 06.24 for uti pseudomonas, and respiratory failure requiring bipap, [facility] pt was givein magda at facility and oxygen, no improvement. currently is hypoxic in respiratory distress. pt is nonverbal, history is per report of transportn, group home papers and old charts. Past History - Past Medical History Allergies/Adverse Reactions: Allergies Allergy/AdvReac Type Severity Reaction Status Date / Time No Known Allergies Allergy Verified 06/26/18 11:56 Home Medications: Ambulatory Orders Alendronate Sodium [Binosto] 70 mg GT WEEKLY 06/12/18 Amlodipine Besylate 2.5 mg GT DAILY 06/12/18 Arformoterol Tartrate [Brovana] 1 vial NEB BID 06/12/18 Ascorbic Acid 500 mg GT BID 06/12/18 Budesonide [Pulmicort 0.5 mg Nebulizer -] 1 vial NEB BID 06/12/18 Calcium Carbonate/Vitamin D3 [Oystercal-D 500 mg-400 Unit Tb] 2 each GT HS 06/12 Ipratropium/Albuterol Sulfate [Iprat-Albut 0.5-3(2.5) mg/3 ml] 1 vial NEB QID Metoclopramide HCl 5 mg GT QID 06/12/18 Omeprazole 20 mg GT DAILY 06/12/18 Phenobarbital 32.4 mg GT BID 06/12/18 Protein Supplement [Promod] 30 ml GT DAILY 06/12/18 Silver Sulfadiazine [Silvadene] 20 gm TP DAILY 06/12/18 Simvastatin 40 mg GT DAILY 06/12/18 Topiramate 25 mg GT DAILY 06/12/18 Topiramate 200 mg GT BID 06/12/18 Valproate Sodium [Depakene -] 15 ml GT BID 06/12/18 Zinc Oxide 1 applic TP TID 06/12/18 levETIRAcetam [levETIRAcetam ORAL SUSPENSION] 15 ml GT BID 06/12/18 Albuterol 0.083% Nebulizer Montserrat [Ventolin 0.083% Nebulizer Soln -] 1 amp NEB Q4H PRN #1 amp 06/24/18 Lactobacillus Acidophilus [Bacid -] 1 tab PO BID #60 tab 06/24/18 Metoprolol Tartrate [Lopressor -] 25 mg GT BID #60 tablet 06/24/18 predniSONE [Deltasone -] See Taper PO ASDIR #20 tab 06/24/18 Lactulose 10 gm GT HS 06/26/18 Olopatadine HCl [Pataday] 2.5 ml OU DAILY 06/26/18 Valproate Sodium Liquid [Depakene] 250 mg GT BID 06/26/18 CVA: Yes COPD: Yes HTN: Yes Hypercholesterolemia: Yes Seizures: Yes - Surgical History GI Surgery: Yes (PEG tube) - Immunization History Immunization Up to Date: No - Suicide/Smoking/Psychosocial Hx Smoking History: Never smoked Have you smoked in the past 12 months: No Hx Alcohol Use: No Drug/Substance Use Hx: No Substance Use Type: None Hx Substance Use Treatment: No Review of Systems - Review of Systems Able to Perform ROS?: No (nonverbal) *Physical Exam - Physical Exam Comments: 06/26/18 11:42 pt awake eyes open, moist mucous membranes. bilat lungs with tachypnea, accessory muscle use, poor airflow bilaterally, heart rrr no mrg.abd soft ntnd. ext contracted, pt contored. nonverbal does not follow commands ( baseline) ED Treatment Course - LABORATORY CBC & Chemistry Diagram: 06/26/18 11:58 06/26/18 11:58 Medical Decision Making - Medical Decision Making 06/26/18 11:43 67 yo F with h/o anoxic brain injury, seizures severe copd recent psueodomonasa uti, here with sob, resp distress. pt MOLST pt is DNR. will start on brochodilators, steroids, and bipap. 06/26/18 13:49 pt with severe copd, exacerabation, on bipap. xray with no pneumonia. no f/c labs unremarkable. 06/26/18 14:31 cxr negative for pneumonia. on bipap improved. labs unremarkable . will admit for copd. exacerabation. d/w admitting team. admit to [facility]. *DC/Admit/Observation/Transfer Diagnosis at time of Disposition: COPD exacerbation - Discharge Dispostion Decision to Admit order: Yes - Referrals - Patient Instructions - Post Discharge Activity
[2018-06-26] MEDS ORDERED: ALBUTEROL SO4 0.083% IH SOL 2.5 MG/3 ML VIAL.NEB. NEB PRN ×2 (14:50→16:25)
[2018-06-26] MEDS ORDERED: VANCOMYCIN 1 GM PREMIX - 1 GM/200 ML BAG IVPB ONE (15:00)
[2018-06-26] MEDS ORDERED: PIPERACILLIN/TAZOB 3.375 GM 3.375 GM in DEXTROSE 5%-WATER - 50 ML IVPB SCH (15:00)
--- NOTE | 2018-06-26 15:10 | HP ---
CHIEF COMPLAINT: Respiratory Distress PCP [facility] HISTORY OF PRESENT ILLNESS: 67 y/o non-verbal Female with PMHx of anoxic brain injury, COPD (on 4L at home) , seizures, who was recently discharged from [facility] for Sepsis due to Pseudomonas UTI, presents from [facility] with Respiratory Distress. Most of the hx was provided by Chart review. Aid at bedside is able to provide minimal hx of patient; She mentions that today patient was tachypneic for which 2 nebulizer tx 's were used and provided minimal relief. She was suctioned at [place] and continued to require respiratory support and was brought to the ED. Chart review did not note any fevers or chills. During her last visit, patient became distressed and was found to be retaining; She was placed on Bilevel and completed a course of IV Methylprednisolone with which her respiratory distress improved. She is currently on a prednisone taper. ER course was notable for: (1) WBC 17.3 (On PO prednisone) (2) ABG PCO2 73.5 (3) Recent Travel: Unable to obtain PAST MEDICAL HISTORY: As Above PAST SURGICAL HISTORY: Unable to obtain Social History: Unable to obtain Family History: Unable to obtain Allergies No Known Allergies Allergy (Verified 06/26/18 11:56) HOME MEDICATIONS: Home Medications Medication Instructions Recorded Alendronate Sodium [Binosto] 70 mg GT WEEKLY 06/12/18 Amlodipine Besylate 2.5 mg GT DAILY 06/12/18 Arformoterol Tartrate [Brovana] 1 vial NEB BID 06/12/18 Ascorbic Acid 500 mg GT BID 06/12/18 Budesonide [Pulmicort 0.5 mg 1 vial NEB BID 06/12/18 Nebulizer -] Calcium Carbonate/Vitamin D3 2 each GT HS 06/12/18 [Oystercal-D 500 mg-400 Unit Tb] Ipratropium/Albuterol Sulfate 1 vial NEB QID 06/12/18 [Iprat-Albut 0.5-3(2.5) mg/3 ml] Metoclopramide HCl 5 mg GT QID 06/12/18 Omeprazole 20 mg GT DAILY 06/12/18 Phenobarbital 32.4 mg GT BID 06/12/18 Protein Supplement [Promod] 30 ml GT DAILY 06/12/18 Silver Sulfadiazine [Silvadene] 20 gm TP DAILY 06/12/18 Simvastatin 40 mg GT DAILY 06/12/18 Topiramate 25 mg GT DAILY 06/12/18 Topiramate 200 mg GT BID 06/12/18 Valproate Sodium [Depakene -] 15 ml GT BID 06/12/18 Zinc Oxide 1 applic TP TID 06/12/18 levETIRAcetam [levETIRAcetam ORAL 15 ml GT BID 06/12/18 SUSPENSION] Albuterol 0.083% Nebulizer [place]serrat 1 amp NEB Q4H PRN #1 amp 06/24/18 [Ventolin 0.083% Nebulizer Soln -] Lactobacillus Acidophilus [Bacid -] 1 tab PO BID #60 tab 06/24/18 Metoprolol Tartrate [Lopressor -] 25 mg GT BID #60 tablet 06/24/18 predniSONE [Deltasone -] See Taper PO ASDIR #20 tab 06/24/18 Lactulose 10 gm GT HS 06/26/18 Olopatadine HCl [Pataday] 2.5 ml OU DAILY 06/26/18 Valproate Sodium Liquid [Depakene] 250 mg GT BID 06/26/18 REVIEW OF SYSTEMS Unable to obtain PHYSICAL EXAMINATION Vital Signs - 24 hr 06/26/18 06/26/18 06/26/18 11:42 12:00 12:10 Temperature 97.9 F Pulse Rate 99 H Pulse Rate [ 102 H Apical] Respiratory 35 H 30 H Rate Blood Pressure 180/87 H Blood Pressure 180/87 H [Right Arm] O2 Sat by Pulse 89 L 96 97 Oximetry (%) 06/26/18 06/26/18 12:20 12:30 Temperature Pulse Rate 94 H Pulse Rate [ 94 H Apical] Respiratory 26 H Rate Blood Pressure Blood Pressure 159/76 [Right Arm] O2 Sat by Pulse 100 98 Oximetry (%) GENERAL: Sleeping, Lethargic HEAD: Microcephaly EYES: PERRL ENT: Moist mucous membranes NECK: No JVD LUNGS: Coarse breath sounds in the upper lobes, diminished breath sounds at the bases, no wheezes, no crackles HEART: Tachycardic, S1, S2 without murmur ABDOMEN: Soft, nondistended, + bowel sounds, GTube present on the left without surrounding erythema or drainage EXTREMITIES: All extremities contracted, 1+ right pedal edema NEUROLOGICAL: Unable to assess SKIN: Warm, Dry Laboratory Results - last 24 hr 06/26/18 06/26/18 06/26/18 11:58 11:58 12:50 WBC 17.3 H RBC 4.21 Hgb 13.1 Hct 39.2 MCV 93.1 MCH 31.0 MCHC 33.3 RDW 14.6 Plt Count 315 MPV 7.4 L D Absolute Neuts (auto) 13.9 H Neutrophils % 80.3 Lymphocytes % 3.5 L D Monocytes % 15.6 H D Eosinophils % 0.3 D Basophils % 0.3 Nucleated RBC % 0 Anticoagulation Therapy No Result Required. Puncture Site Right radial ABG pH 7.34 L ABG pCO2 at Pt Temp 73.5 H* ABG pO2 at Pt Temp 98.8 ABG HCO3 38.6 H ABG O2 Sat (Measured) 97.3 ABG O2 Content 16.8 ABG Base Excess 10.4 H Scott Test Positive O2 Delivery Device Bipap Oxygen Flow Rate 40% Vent Mode S/t Vent Rate 14 Mechanical Rate Bipap PEEP 0.0 Pressure Support Vent Ipap15/epap5 Sodium 136 Potassium 3.9 Chloride 90 L Carbon Dioxide 40 H Anion Gap 5 L BUN 19 H Creatinine 0.4 L Creat Clearance w eGFR 160.19 Random Glucose 151 H Calcium 9.2 Total Bilirubin 0.2 AST 28 ALT 34 Alkaline Phosphatase 421 H Creatine Kinase 46 Troponin I < 0.02 B-Natriuretic Peptide 282.8 H Total Protein 6.8 Albumin 2.8 L Active Medications Albuterol Sulfate (Ventolin 0.083% Nebulizer Soln -) 1 amp NEB Q4H PRN PRN Reason: SHORT OF BREATH/WHEEZING Albuterol/Ipratropium (Duoneb -) 1 amp NEB RQID [facility]CIE Amlodipine Besylate (Norvasc -) 2.5 mg GT DAILY [facility] Arformoterol Tartrate (Brovana (Restricted To Pulmonology/Resp) -) 1 amp NEB RBID [facility] Ascorbic Acid (Vitamin C -) 500 mg GT BID [facility] Budesonide (Pulmicort 0.5 Mg Nebulizer -) 1 amp NEB RBID [facility] Calcium Carbonate/Cholecalciferol (Os-Jamar 500+D -) 2 tab GT HS [facility]E Enoxaparin Sodium (Lovenox -) 40 mg SQ DAILY [facility] Lactated Ringer's (Lactated Ringers Solution) 1,000 mls @ 42 mls/hr IV ASDIR FRANCIE Piperacillin Sod/Tazobactam (Sod 3.375 gm/ Dextrose) 50 mls @ 100 mls/hr IVPB Q6H-IV FRANCIE; Protocol Piperacillin Sod/Tazobactam (Sod 3.375 gm/ Dextrose) 50 mls @ 100 mls/hr IVPB Q6H-IV FRANCIE Stop: 06/27/18 09:29 Lactobacillus Acidophilus (Bacid -) 1 tab GT BID [facility] Methylprednisolone Sodium Succinate (Solu-Medrol -) 40 mg IVPUSH Q8H-IV [facility]CIE Metoprolol Tartrate (Lopressor -) 25 mg GT BID [facility] Non-Formulary Medication (Levetiracetam) 1,500 mg GT BID [facility]CIE Non-Formulary Medication (Metoclopramide Hcl [Metoclopramide Hcl]) 5 mg GT QID [facility]ANCIE Non-Formulary Medication (Olopatadine Hcl [Pataday]) 2.5 ml OU DAILY [facility] Non-Formulary Medication (Omeprazole Pediatric Solution) 20 mg GT DAILY [facility]E Non-Formulary Medication (Protein Supplement [Promod]) 30 ml GT DAILY [facility]CIE Non-Formulary Medication (Simvastatin [Simvastatin]) 40 mg GT DAILY [facility]CIE Non-Formulary Medication (Zinc Oxide [Zinc Oxide]) 1 applic TP TID [facility]CIE Pantoprazole Sodium (Protonix -) 40 mg PO DAILY [facility] Phenobarbital (Phenobarbital -) 32.4 mg GT BID [facility]CIE Silver Sulfadiazine (Silvadene -) applic TP DAILY [facility] Topiramate (Topamax -) 25 mg PO DAILY [facility] Topiramate (Topamax -) 200 mg GT BID [facility] Valproate Sodium (Depakene -) 750 mg GT BID [facility] IMAGING: -CXR: Levoscoliosis of the spine. No airspace opacities are seen in the visualized left lung. Elevated right diaphragm. No airspace opacities are seen in the right upper lung zone. No pneumothorax is seen. -EKG: SINUS RHYTHM WITH SHORT ID, VR 100, QTc 397 ASSESSMENT/PLAN: 67 y/o non-verbal Female with PMHx of anoxic brain injury, COPD (on 4L at home) , seizures, who was recently discharged from [facility] for Sepsis due to Pseudomonas UTI, presents from [facility] with Respiratory Distress. #Respiratory distress -Unclear etiology; Still consider Aspiration PNA, COPD Exacerbation -Tachycardic and Tachypneic in a bed bound patient, will need to R/O PE -Leukocytosis in the setting of prednisone use -ABG reveals pCO2 73.5 -CTA Pending -Continue on Bilevel (15//40%) -Vancomycin 1,000 mg Q12H -Piperacillin/Tazobactam 3.375 Q6H -Given Solumedrol 125mg in ED; Will continue with IV 40mg Q8H -Albuterol KELL Q6H PRN -Supplemental O2 to maintain SpO2 88-92% -Blood cx, UA pending -ID (Dr. Hickey) consulted -Pulmonary (Dr. Gann) consulted -LR @ 42 mls/hr -Hold tube feeds in the setting of Aspiration -Keep HOB elevated -Aspiration precautions -Recently completed Influenza, RSV, Legionella negative #Hypertension -Metoprolol Tartrate 50mg GT BID, Amlodipine to 5mg GT Daily #HLD -Atorvastatin 20mg GT HS #GERD -Metoclopramide, Pantoprazole #Seizures -Levetiracetam, Valproate, Topiramate, Phenobarbital #FEN -LR @ 42 -Monitor lytes -NPO #PPx -DVT: Lovenox -GI: PPI Code status: DNR Visit type - Emergency Visit Emergency Visit: Yes ED Registration Date: 06/26/18 Care time: The patient presented to the Emergency Department on the above date and was hospitalized for further evaluation of their emergent condition. - New Patient This patient is new to me today: No - Critical Care Critical Care patient: No
--- NOTE | 2018-06-26 15:30 | PN ---
Teaching Attending Note Name of Resident: Melania Marin ATTENDING PHYSICIAN STATEMENT I saw and evaluated the patient. I reviewed the resident's note and discussed the case with the resident. I agree with the resident's findings and plan as documented. SUBJECTIVE: This is a 67 year old woman with a history of anoxic brain injury, seizures, COPD, HTN, hyperlipidemia, GERD, functional quadriplegia, G-tube who was admitted 06/12 with acute and chronic hypoxic respiratory failure, acute exacerbation of COPD, sepsis, Pseudomonas UTI, possible aspiration pneumonia. She was treated with SoluMedrol, Zosyn, BiPAP. She was discharged to [facility] on 06/24 on a prednisone taper. She was sent back to the ED today for SOB and hypoxia which persisted despite nebulizer treatments. OBJECTIVE: Vital Signs Period Temp Pulse Resp BP Sys/Restrepo Pulse Ox Last 24 Hr 97.9 F 94-102 26-35 159-180/76-87 89-100 HEART: S1S2, tachycardic LUNGS: Diffuse rhonchi ABDOMEN: Soft, non-distended, normal BS, PEG in place with clean insertion site EXTREMITIES: Contracted Laboratory Tests 06/26/18 06/26/18 06/26/18 11:58 11:58 12:50 WBC 17.3 H RBC 4.21 Hgb 13.1 Hct 39.2 MCV 93.1 MCH 31.0 MCHC 33.3 RDW 14.6 Plt Count 315 MPV 7.4 L D Absolute Neuts (auto) 13.9 H Neutrophils % 80.3 Lymphocytes % 3.5 L D Monocytes % 15.6 H D Eosinophils % 0.3 D Basophils % 0.3 Nucleated RBC % 0 Anticoagulation Therapy No Result Required. Puncture Site Right radial ABG pH 7.34 L ABG pCO2 at Pt Temp 73.5 H* ABG pO2 at Pt Temp 98.8 ABG HCO3 38.6 H ABG O2 Sat (Measured) 97.3 ABG O2 Content 16.8 ABG Base Excess 10.4 H Scott Test Positive O2 Delivery Device Bipap Oxygen Flow Rate 40% Vent Mode S/t Vent Rate 14 Mechanical Rate Bipap PEEP 0.0 Pressure Support Vent Ipap15/epap5 Sodium 136 Potassium 3.9 Chloride 90 L Carbon Dioxide 40 H Anion Gap 5 L BUN 19 H Creatinine 0.4 L Creat Clearance w eGFR 160.19 Random Glucose 151 H Calcium 9.2 Total Bilirubin 0.2 AST 28 ALT 34 Alkaline Phosphatase 421 H Creatine Kinase 46 Troponin I < 0.02 B-Natriuretic Peptide 282.8 H Total Protein 6.8 Albumin 2.8 L Home Medications Medication Instructions Recorded Alendronate Sodium [Binosto] 70 mg GT WEEKLY 06/12/18 Amlodipine Besylate 2.5 mg GT DAILY 06/12/18 Arformoterol Tartrate [Brovana] 1 vial NEB BID 06/12/18 Ascorbic Acid 500 mg GT BID 06/12/18 Budesonide [Pulmicort 0.5 mg 1 vial NEB BID 06/12/18 Nebulizer -] Calcium Carbonate/Vitamin D3 2 each GT HS 06/12/18 [Oystercal-D 500 mg-400 Unit Tb] Ipratropium/Albuterol Sulfate 1 vial NEB QID 06/12/18 [Iprat-Albut 0.5-3(2.5) mg/3 ml] Metoclopramide HCl 5 mg GT QID 06/12/18 Omeprazole 20 mg GT DAILY 06/12/18 Phenobarbital 32.4 mg GT BID 06/12/18 Protein Supplement [Promod] 30 ml GT DAILY 06/12/18 Silver Sulfadiazine [Silvadene] 20 gm TP DAILY 06/12/18 Simvastatin 40 mg GT DAILY 06/12/18 Topiramate 25 mg GT DAILY 06/12/18 Topiramate 200 mg GT BID 06/12/18 Valproate Sodium [Depakene -] 15 ml GT BID 06/12/18 Zinc Oxide 1 applic TP TID 06/12/18 levETIRAcetam [levETIRAcetam ORAL 15 ml GT BID 06/12/18 SUSPENSION] Albuterol 0.083% Nebulizer Montserrat 1 amp NEB Q4H PRN #1 amp 06/24/18 [Ventolin 0.083% Nebulizer Soln -] Lactobacillus Acidophilus [Bacid -] 1 tab PO BID #60 tab 06/24/18 Metoprolol Tartrate [Lopressor -] 25 mg GT BID #60 tablet 06/24/18 predniSONE [Deltasone -] See Taper PO ASDIR #20 tab 06/24/18 Lactulose 10 gm GT HS 06/26/18 Olopatadine HCl [Pataday] 2.5 ml OU DAILY 06/26/18 Valproate Sodium Liquid [Depakene] 250 mg GT BID 06/26/18 ASSESSMENT AND PLAN: This is a 67 year old woman with a history of anoxic brain injury, seizures, COPD, HTN, hyperlipidemia, GERD, functional quadriplegia, G-tube who was sent to the ED from [facility] for SOB and hypoxia. 1. Acute on chronic hypoxic and hypercapnic respiratory failure and sepsis ( tachycardia, leukocytosis) secondary to presumed aspiration/healthcare- associated pneumonia - SoluMedrol, Zosyn, Vancomycin, Pulmicort, DuoNeb, oxygen, BiPAP - Chest CTA to eval for PE 2. Left humerus fracture - Maintain brace on left arm until 06/29 3. History of anoxic brain injury 4. Seizure Disorder - Continue Keppra, Depakene, Phenobarbital, Topamax 5. HTN - Continue Norvasc, Lopressor 6. Hyperlipidemia - Continue Zocor 7. GERD - Continue Prilosec 8. Functional quadriplegia 9. Nutrition - Hold PEG feeds for now
[2018-06-26] MEDS ORDERED: PATIENT'S OWN MEDICATION (NON-FORMULARY) (Alendronate Sodium [Binosto] 70 MG) GT SCH (16:30)
[2018-06-26] MEDS: LACTATED RINGERS SOLUTION 1,000 ML IV SCH (17:21)
[2018-06-26] MEDS ORDERED: PIPERACILLIN/TAZOBACTAM 3.375 GM VIAL IVPB ONE ×2 (17:29→20:07)
[2018-06-26] MEDS ORDERED: DEXTROSE 5%-WATER - 50 ML IVPB ONE ×2 (17:29→20:07)
[2018-06-26] MEDS: ENOXAPARIN NA (PORCINE) 40 MG/0.4 ML DISP.SYRIN SQ SCH (17:30)
[2018-06-26] MEDS: PANTOPRAZOLE 40 MG TABLET (FP) PO SCH (17:31)
[2018-06-26] MEDS: PIPERACILLIN/TAZOB 3.375 GM 3.375 GM in DEXTROSE 5%-WATER - 50 ML IVPB SCH ×2 (17:31→21:54)
[2018-06-26] MEDS: METOCLOPRAMIDE HCL 5 MG/5 ML UNIT DOSE CUP GT SCH ×2 (17:33→21:58)
[2018-06-26] MEDS: methylPREDNISolone NA SUCC 40 MG/1 ML VIAL IVPUSH SCH (17:33)
[2018-06-26] MEDS ORDERED: ALBUTEROL SO4 2.5/IPRATROPIUM 0.5 INH SOL 3 ML VIAL.NEB. NEB SCH (20:00)
[2018-06-26] MEDS ORDERED: PT OWN MED DRAWER 7, Y5N ONE ×2 (20:38→21:52)
[2018-06-26] MEDS: ARFORMOTEROL TARTRATE 15 MCG/2 ML VIAL NEB SCH (21:06)
[2018-06-26] MEDS: BUDESONIDE 0.5 MG/2 ML INH SUSP VIAL NEB SCH (21:07)
[2018-06-26] MEDS: ALBUTEROL SO4 2.5/IPRATROPIUM 0.5 INH SOL 3 ML VIAL.NEB. NEB SCH (21:08)
[2018-06-26] MEDS: CALCIUM 500MG/VIT-D 200 UNITS COMBO TABLET (FP) GT SCH (21:55)
[2018-06-26] MEDS: METOPROLOL TARTRATE 25 MG TABLET (FP) GT SCH (21:55)
[2018-06-26] MEDS: ZINC OXIDE 20% TOPICAL OINTMENT 30 GM TUBE TP SCH (21:55)
[2018-06-26] MEDS: ASCORBIC ACID 500 MG TABLET (FP) GT SCH (21:55)
[2018-06-26] MEDS: ATORVASTATIN CA 20 MG TABLET (FP) PO SCH (21:55)
[2018-06-26] MEDS: PHENobarbital 30 MG TABLET GT SCH (21:55)
[2018-06-26] MEDS: LACTOBACILLUS ACIDOPHILUS 1 TABLET GT SCH (21:55)
[2018-06-26] MEDS: TOPIRAMATE 200 MG TABLET (FP) GT SCH (21:56)
[2018-06-26] MEDS: RANITIDINE HCL 150 MG/10 ML UNIT-DOSE GT SCH (21:57)
[2018-06-26] MEDS: VALPROATE SODIUM 250 MG/5 ML UNIT DOSE CUP GT SCH (21:57)
[2018-06-26] MEDS: levETIRAcetam 500 MG/5 ML ORAL SOLUTION (UNIT-DOSE CUPS) GT SCH (21:58)
[2018-06-26] MEDS ORDERED: VALPROATE SODIUM 250 MG GT SCH (22:00)
[2018-06-27] MEDS ORDERED: PIPERACILLIN/TAZOBACTAM 3.375 GM VIAL IVPB ONE ×3 (02:33→17:41)
[2018-06-27] MEDS ORDERED: DEXTROSE 5%-WATER - 50 ML IVPB ONE ×3 (02:34→17:42)
[2018-06-27] MEDS: methylPREDNISolone NA SUCC 40 MG/1 ML VIAL IVPUSH SCH ×2 (02:54→10:19)
[2018-06-27] MEDS: PIPERACILLIN/TAZOB 3.375 GM 3.375 GM in DEXTROSE 5%-WATER - 50 ML IVPB SCH ×3 (02:54→17:45)
[2018-06-27] MEDS: ZINC OXIDE 20% TOPICAL OINTMENT 30 GM TUBE TP SCH ×3 (06:20→22:38)
[2018-06-27] MEDS ORDERED: METOPROLOL TARTRATE 5 MG/5 ML VIAL IVPUSH PRN (07:03)
[2018-06-27] MEDS: ALBUTEROL SO4 2.5/IPRATROPIUM 0.5 INH SOL 3 ML VIAL.NEB. NEB SCH ×4 (07:30→21:26)
[2018-06-27] MEDS: BUDESONIDE 0.5 MG/2 ML INH SUSP VIAL NEB SCH ×2 (07:30→20:00)
[2018-06-27] MEDS: ARFORMOTEROL TARTRATE 15 MCG/2 ML VIAL NEB SCH ×2 (07:30→20:00)
[2018-06-27 08:12] LABS: BASO % 0.2 % (0-2.0); EOS % 0.1 % (0-4.5); HEMATOCRIT 36.1 % (32.4-45.2); HEMOGLOBIN 12.3 GM/dL (10.7-15.3); LYMPH % 5.5 % (8-40); MCH 31.5 pg (25.7-33.7); MEAN CELL VOLUME 92.6 fl (80-96); MEAN PLT VOLUME 7.4 fl (7.5-11.1); MONO % 5.3 % (3.8-10.2); NEUT % 88.9 % (42.8-82.8); PLATELET COUNT 271 K/MM3 (134-434); RDW 14.3 % (11.6-15.6); WHITE BLOOD COUNT 10.4 K/mm3 (4.0-10.0)
[2018-06-27] MEDS ORDERED: METOPROLOL TARTRATE 5 MG/5 ML VIAL IVPB PRN (08:14)
[2018-06-27 08:43] LABS: ALBUMIN 2.4 g/dl (3.4-5.0); ALK PHOS 344 U/L (45-117); ANION GAP 3 MMOL/L (8-16); BILIRUBIN,TOTAL 0.2 mg/dL (0.2-1); BLOOD UREA NITROGEN 14 mg/dL (7-18); CALCIUM 8.8 mg/dL (8.5-10.1); CHLORIDE 96 mmol/L (98-107); CO2 41 mmol/L (21-32); CREATININE 0.2 mg/dL (0.55-1.3); GLUCOSE,RANDOM 108 mg/dL (74-106); MAGNESIUM 2.3 mg/dL (1.8-2.4); PHOSPHOROUS 3.6 mg/dL (2.5-4.9); POTASSIUM 3.6 mmol/L (3.5-5.1); SGOT/AST 16 U/L (15-37); SGPT/ALT 26 U/L (13-61); SODIUM 140 mmol/L (136-145); TOT PROT 6.2 g/dl (6.4-8.2)
[2018-06-27] MEDS ORDERED: PATIENT'S OWN MEDICATION (NON-FORMULARY) (Olopatadine Hcl [Pataday] 2.5 ML) OU SCH (10:00)
[2018-06-27] MEDS ORDERED: PT OWN MED DRAWER 7, Y5N ONE ×3 (10:14→17:41)
[2018-06-27] MEDS: PHENobarbital 30 MG TABLET GT SCH ×2 (10:19→22:33)
[2018-06-27] MEDS: TOPIRAMATE 200 MG TABLET (FP) GT SCH ×2 (10:19→22:37)
[2018-06-27] MEDS: amLODIPine BESYLATE 2.5 MG TABLET (FP) GT SCH (10:19)
[2018-06-27] MEDS: AMINO ACIDS/PROTEIN HYDROLYS 30 ML LIQUID.PKT GT SCH (10:19)
[2018-06-27] MEDS: ASCORBIC ACID 500 MG TABLET (FP) GT SCH ×2 (10:19→22:33)
[2018-06-27] MEDS: LACTOBACILLUS ACIDOPHILUS 1 TABLET GT SCH ×2 (10:19→22:33)
[2018-06-27] MEDS: ENOXAPARIN NA (PORCINE) 40 MG/0.4 ML DISP.SYRIN SQ SCH (10:19)
[2018-06-27] MEDS: METOPROLOL TARTRATE 25 MG TABLET (FP) GT SCH ×2 (10:19→22:33)
[2018-06-27] MEDS: TOPIRAMATE 25 MG TABLET (FP) PO SCH (10:19)
[2018-06-27] MEDS: PANTOPRAZOLE 40 MG TABLET (FP) PO SCH (10:19)
[2018-06-27] MEDS: METOCLOPRAMIDE HCL 5 MG/5 ML UNIT DOSE CUP GT SCH ×4 (10:20→22:34)
[2018-06-27] MEDS: RANITIDINE HCL 150 MG/10 ML UNIT-DOSE GT SCH ×2 (10:20→22:34)
[2018-06-27] MEDS: SILVER SULFADIAZINE 1% TOP CREAM 50 GM JAR TP SCH (10:20)
[2018-06-27] MEDS: VALPROATE SODIUM 250 MG/5 ML UNIT DOSE CUP GT SCH ×2 (10:20→22:36)
[2018-06-27] MEDS: levETIRAcetam 500 MG/5 ML ORAL SOLUTION (UNIT-DOSE CUPS) GT SCH ×2 (10:20→22:36)
--- NOTE | 2018-06-27 11:01 | CON.PULM ---
Consult Consult Specialty:: PULMONARY Referred by:: Dr Curtis Reason for Consultation:: respiratory distress - History of Present Illness Chief Complaint: shortness of breath History of Present Illness: 67yo female with h/o HTN, COPD, chronic hypoxic respiratory failure, anoxic brain injury, recent admission for UTI/sepsis who was admitted for respiratory distress. Noted to be tachypneic, placed on BiPAP, given solumedrol and nebulizers with some improvement. Pt unable to provide further history at this time. Currently on NRB saturating 99%, breathing nonlabored at this time. 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) - Alcohol/Substance Use Hx Alcohol Use: No - Smoking History Smoking history: Never smoked Have you smoked in the past 12 months: No Home Medications - Allergies Allergies/Adverse Reactions: Allergies Allergy/AdvReac Type Severity Reaction Status Date / Time No Known Allergies Allergy Verified 06/26/18 11:56 - Home Medications Home Medications: Ambulatory Orders Alendronate Sodium [Binosto] 70 mg GT WEEKLY 06/12/18 Amlodipine Besylate 5 mg GT DAILY 06/12/18 Arformoterol Tartrate [Brovana] 1 vial NEB BID 06/12/18 Ascorbic Acid 500 mg GT BID 06/12/18 Budesonide [Pulmicort 0.5 mg Nebulizer -] 1 vial NEB BID 06/12/18 Calcium Carbonate/Vitamin D3 [Oystercal-D 500 mg-400 Unit Tb] 2 each GT HS 06/12 Ipratropium/Albuterol Sulfate [Iprat-Albut 0.5-3(2.5) mg/3 ml] 1 vial NEB QID Metoclopramide HCl 5 mg GT QID 06/12/18 Omeprazole 20 mg GT DAILY 06/12/18 Phenobarbital 32.4 mg GT BID 06/12/18 Protein Supplement [Promod] 30 ml GT DAILY 06/12/18 Silver Sulfadiazine [Silvadene] 20 gm TP DAILY 06/12/18 Simvastatin 40 mg GT DAILY 06/12/18 Topiramate 25 mg GT DAILY 06/12/18 Topiramate 200 mg GT BID 06/12/18 Valproate Sodium [Depakene -] 15 ml GT BID 06/12/18 Zinc Oxide 1 applic TP TID 06/12/18 levETIRAcetam [levETIRAcetam ORAL SUSPENSION] 1,500 mg GT BID 06/12/18 Albuterol 0.083% Nebulizer Montserrat [Ventolin 0.083% Nebulizer Soln -] 1 amp NEB Q4H PRN #1 amp 06/24/18 Lactobacillus Acidophilus [Bacid -] 1 tab PO BID #60 tab 06/24/18 Metoprolol Tartrate [Lopressor -] 25 mg GT BID #60 tablet 06/24/18 Olopatadine HCl [Pataday] 2.5 ml OU DAILY 06/26/18 Review of Systems Unable to obtain ROS, reason: pt nonverbal Physical Exam Vital Sings: Vital Signs Temperature 98.4 F 06/27/18 10:00 Pulse Rate 84 06/27/18 10:00 Respiratory Rate 20 06/27/18 10:00 Blood Pressure 111/61 06/27/18 10:00 O2 Sat by Pulse Oximetry (%) 98 06/27/18 06:00 Constitutional: Yes: Calm Eyes: Yes: Conjunctiva Clear, EOM Intact HENT: Yes: Atraumatic, Normocephalic Neck: Yes: Supple, Trachea Midline Cardiovascular: Yes: Regular Rate and Rhythm Respiratory: Yes: Diminished (decreased breath sounds at the bases) ...Clubbing: No Gastrointestinal: Yes: Normal Bowel Sounds, Soft. No: Tenderness Edema: No Neurological: Yes: Other (poorly responsive) Labs: CBC, BMP 06/27/18 07:10 06/27/18 07:10 ABG Results ABG pH 7.34 (7.35-7.45) L 06/26/18 12:50 ABG pCO2 at Pt Temp 73.5 mmHg (35-45) H* 06/26/18 12:50 ABG pO2 at Pt Temp 98.8 mmHg (80-105) 06/26/18 12:50 ABG HCO3 38.6 mmol/L (22-27) H 06/26/18 12:50 ABG O2 Sat (Measured) 97.3 % (95-98) 06/26/18 12:50 ABG O2 Content 16.8 % vol (15-22) 06/26/18 12:50 ABG Base Excess 10.4 meq/l (-2-2) H 06/26/18 12:50 Imaging - Results Chest X-ray: Report Reviewed, Image Reviewed Cat Scan: Report Reviewed, Image Reviewed (bibasilar atelectasis vs infiltrates) Problem List - Problems (1) Acute on chronic respiratory failure with hypoxia and hypercapnia Code(s): J96.21 - ACUTE AND CHRONIC RESPIRATORY FAILURE WITH HYPOXIA; J96.22 - ACUTE AND CHRONIC RESPIRATORY FAILURE WITH HYPERCAPNIA (2) COPD exacerbation Code(s): J44.1 - CHRONIC OBSTRUCTIVE PULMONARY DISEASE W (ACUTE) EXACERBATION (3) Anoxic brain damage Code(s): G93.1 - ANOXIC BRAIN DAMAGE, NOT ELSEWHERE CLASSIFIED (4) Functional quadriplegia Code(s): R53.2 - FUNCTIONAL QUADRIPLEGIA Assessment/Plan Acute on Chronic Hypoxic and Hypercapneic Respiratory Failure Acute COPD Exacerbation Atelectasis vs Pneumonia Anoxic Brain Injury HTN Functional Quadriplegia - taper Fio2 to keep SpO2 >90% - can change steroids to PO prednisone 40mg daily - inhaled bronchodilators - aspiration precautions - suspect element of microaspiration - short course of antibiotics - monitor fever curve, WBC trend - DVT prophylaxis Thank you for this consult Arsenio Gann MD
--- NOTE | 2018-06-27 11:16 | CON.ID ---
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) - Alcohol/Substance Use Hx Alcohol Use: No - Smoking History Smoking history: Never smoked Have you smoked in the past 12 months: No Home Medications - Allergies Allergies/Adverse Reactions: Allergies Allergy/AdvReac Type Severity Reaction Status Date / Time No Known Allergies Allergy Verified 06/26/18 11:56 - Home Medications Home Medications: Ambulatory Orders Alendronate Sodium [Binosto] 70 mg GT WEEKLY 06/12/18 Amlodipine Besylate 5 mg GT DAILY 06/12/18 Arformoterol Tartrate [Brovana] 1 vial NEB BID 06/12/18 Ascorbic Acid 500 mg GT BID 06/12/18 Budesonide [Pulmicort 0.5 mg Nebulizer -] 1 vial NEB BID 06/12/18 Calcium Carbonate/Vitamin D3 [Oystercal-D 500 mg-400 Unit Tb] 2 each GT HS 06/12 Ipratropium/Albuterol Sulfate [Iprat-Albut 0.5-3(2.5) mg/3 ml] 1 vial NEB QID Metoclopramide HCl 5 mg GT QID 06/12/18 Omeprazole 20 mg GT DAILY 06/12/18 Phenobarbital 32.4 mg GT BID 06/12/18 Protein Supplement [Promod] 30 ml GT DAILY 06/12/18 Silver Sulfadiazine [Silvadene] 20 gm TP DAILY 06/12/18 Simvastatin 40 mg GT DAILY 06/12/18 Topiramate 25 mg GT DAILY 06/12/18 Topiramate 200 mg GT BID 06/12/18 Valproate Sodium [Depakene -] 15 ml GT BID 06/12/18 Zinc Oxide 1 applic TP TID 06/12/18 levETIRAcetam [levETIRAcetam ORAL SUSPENSION] 1,500 mg GT BID 06/12/18 Albuterol 0.083% Nebulizer Montserrat [Ventolin 0.083% Nebulizer Soln -] 1 amp NEB Q4H PRN #1 amp 06/24/18 Lactobacillus Acidophilus [Bacid -] 1 tab PO BID #60 tab 06/24/18 Metoprolol Tartrate [Lopressor -] 25 mg GT BID #60 tablet 06/24/18 Olopatadine HCl [Pataday] 2.5 ml OU DAILY 06/26/18 Physical Exam Vital Signs: Vital Signs Temperature 98.4 F 06/27/18 10:00 Pulse Rate 84 06/27/18 10:00 Respiratory Rate 20 06/27/18 10:00 Blood Pressure 111/61 06/27/18 10:00 O2 Sat by Pulse Oximetry (%) 98 06/27/18 06:00 Labs: CBC, BMP 06/27/18 07:10 06/27/18 07:10
--- NOTE | 2018-06-27 13:06 | PN ---
Teaching Attending Note Name of Resident: Melania Marin ATTENDING PHYSICIAN STATEMENT I saw and evaluated the patient. I reviewed the resident's note and discussed the case with the resident. I agree with the resident's findings and plan as documented. SUBJECTIVE: Patient lethargic but arousable. OBJECTIVE: Vital Signs Period Temp Pulse Resp BP Sys/Restrepo Pulse Ox Last 24 Hr 98.4 F-99.3 F 73-110 20-22 111-167/61-98 95-100 HEART: S1S2, RRR LUNGS: Coarse BS ABDOMEN: Soft, non-distended, G-tube in place EXTREMITIES: Contracted, 1+ edema right foot Laboratory Results - last 24 hr 06/26/18 06/27/18 06/27/18 12:50 07:10 07:10 WBC 10.4 H RBC 3.90 Hgb 12.3 Hct 36.1 MCV 92.6 MCH 31.5 MCHC 34.0 RDW 14.3 Plt Count 271 MPV 7.4 L Absolute Neuts (auto) 9.2 H Neutrophils % 88.9 H Lymphocytes % 5.5 L D Monocytes % 5.3 Eosinophils % 0.1 Basophils % 0.2 Nucleated RBC % 0 Puncture Site Right radial ABG pH 7.34 L ABG pCO2 at Pt Temp 73.5 H* ABG pO2 at Pt Temp 98.8 ABG HCO3 38.6 H ABG O2 Sat (Measured) 97.3 ABG O2 Content 16.8 ABG Base Excess 10.4 H Scott Test Positive O2 Delivery Device Bipap Oxygen Flow Rate 40% Vent Mode S/t Vent Rate 14 Mechanical Rate Bipap PEEP 0.0 Pressure Support Vent Ipap15/epap5 Sodium 140 Potassium 3.6 Chloride 96 L Carbon Dioxide 41 H Anion Gap 3 L BUN 14 Creatinine 0.2 L Creat Clearance w eGFR 356.48 Random Glucose 108 H Calcium 8.8 Phosphorus 3.6 Magnesium 2.3 Total Bilirubin 0.2 AST 16 ALT 26 Alkaline Phosphatase 344 H Total Protein 6.2 L Albumin 2.4 L Current Medications Generic Name Dose Route Start Last Admin Trade Name Freq PRN Reason Stop Dose Admin Albuterol Sulfate 1 amp 06/26/18 16:25 Ventolin 0.083% Nebulizer Soln - NEB Q4H PRN SHORT OF BREATH/WHEEZING Albuterol/Ipratropium 1 amp 06/26/18 20:00 06/27/18 11:58 Duoneb - NEB 1 amp RQID [facility]ANCIE Administration Amino Acids 30 ml 06/27/18 10:00 06/27/18 10:19 Prosource No Carb Liquid Pkt GT 30 ml DAILY [facility]E Administration Amlodipine Besylate 2.5 mg 06/27/18 10:00 06/27/18 10:19 Norvasc - GT 2.5 mg DAILY [facility] Administration Arformoterol Tartrate 1 amp 06/26/18 20:00 06/27/18 07:30 Brovana (Restricted To Pulmonology/Resp) - NEB 1 amp RBID [facility] Administration Ascorbic Acid 500 mg 06/26/18 22:00 06/27/18 10:19 Vitamin C - GT 500 mg BID [facility] Administration Atorvastatin Calcium 20 mg 06/26/18 22:00 06/26/18 21:55 Lipitor - PO 20 mg HS [facility]AN[facility]E Administration Budesonide 1 amp 06/26/18 20:00 06/27/18 07:30 Pulmicort 0.5 Mg Nebulizer - NEB 1 amp RBID [facility] Administration Calcium Carbonate/Cholecalciferol 2 tab 06/26/18 22:00 06/26/18 21:55 Os-Jamar 500+D - GT 2 tab HS [facility] Administration Enoxaparin Sodium 40 mg 06/26/18 15:00 06/27/18 10:19 Lovenox - SQ 40 mg DAILY [facility] Administration Lactated Ringer's 1,000 mls @ 42 mls/hr 06/26/18 14:45 06/26/18 17:21 Lactated Ringers Solution IV 42 mls/hr ASDIR [facility]E Administration Piperacillin Sod/Tazobactam 50 mls @ 100 mls/hr 06/27/18 18:00 Sod 3.375 gm/ Dextrose IVPB Q8H-IV [facility]E Protocol Lactobacillus Acidophilus 1 tab 06/26/18 22:00 06/27/18 10:19 Bacid - GT 1 tab BID [facility]E Administration Levetiracetam 1,500 mg 06/26/18 22:00 06/27/18 10:20 Keppra Oral Solution - GT 1,500 mg BID [facility]E Administration Metoclopramide HCl 5 mg 06/26/18 18:00 06/27/18 10:20 Reglan Oral Solution - GT 5 mg QID [facility]E Administration Metoprolol Tartrate 25 mg 06/26/18 22:00 06/27/18 10:19 Lopressor - GT 25 mg BID [facility] Administration Metoprolol Tartrate 5 mg 06/27/18 08:14 Lopressor Injection - IVPB Q4H PRN HYPERTENSION Multi-Ingredient Ointment 1 applic 06/26/18 22:00 06/27/18 06:20 Zinc Oxide TP 1 applic TID FRANCIE Administration Non-Formulary Medication 2.5 ml 06/27/18 10:00 Olopatadine Hcl [Pataday] OU DAILY [facility] Pantoprazole Sodium 40 mg 06/26/18 15:00 06/27/18 10:19 Protonix - PO 40 mg DAILY [facility] Administration Phenobarbital 30 mg 06/26/18 22:00 06/27/18 10:19 Phenobarbital - GT 30 mg BID [facility]E Administration Prednisone 40 mg 06/27/18 18:00 Deltasone - PO DAILY [facility] Ranitidine HCl 150 mg 06/26/18 22:00 06/27/18 10:20 Zantac Oral Solution - GT 150 mg BID [facility]E Administration Silver Sulfadiazine 1 applic 06/27/18 10:00 06/27/18 10:20 Silvadene - TP 1 applic DAILY [facility] Administration Topiramate 25 mg 06/27/18 10:00 06/27/18 10:19 Topamax - PO 25 mg DAILY [facility] Administration Topiramate 200 mg 06/26/18 22:00 06/27/18 10:19 Topamax - GT 200 mg BID [facility] Administration Valproate Sodium 750 mg 06/26/18 22:00 06/27/18 10:20 Depakene - GT 750 mg BID [facility]ANCIE Administration ASSESSMENT AND PLAN: This is a 67 year old woman with a history of anoxic brain injury, seizures, COPD, HTN, hyperlipidemia, GERD, functional quadriplegia, G-tube who was sent to the ED from [facility] for SOB and hypoxia. 1. Acute on chronic hypoxic and hypercapnic respiratory failure and sepsis ( tachycardia, leukocytosis) secondary to presumed aspiration/healthcare- associated pneumonia - SoluMedrol chaned to Prednisone - Continue Zosyn, Pulmicort, Brovana, DuoNeb, oxygen, BiPAP - Chest CTA negative for PE 2. Left humerus fracture - Maintain brace on left arm until 06/29 3. History of anoxic brain injury 4. Seizure Disorder - Continue Keppra, Depakene, Phenobarbital, Topamax 5. HTN - Continue Norvasc, Lopressor 6. Hyperlipidemia - Continue Lipitor 7. GERD - Continue Protonix 8. Functional quadriplegia 9. Nutrition - Hold PEG feeds for now
--- NOTE | 2018-06-27 17:01 | PN ---
Physical Exam: SUBJECTIVE: Patient seen and examined this am. Sleepy but more arousable than yesterday. Transitioned to nonrebreather overnight. No acute overnight events as per nursing staff. OBJECTIVE: Vital Signs Period Temp Pulse Resp BP Sys/Restrepo Pulse Ox Last 24 Hr 98.4 F-99.3 F 81-110 20-22 111-167/61-98 98-100 GENERAL: Sleeping, NAD HEAD: Microcephaly EYES: PERRL ENT: Moist mucous membranes NECK: No JVD LUNGS: Diminished breath sounds at the bases, no wheezes, no crackles HEART: Tachycardic, S1, S2 without murmur ABDOMEN: Soft, nondistended, + bowel sounds, GTube present on the left without surrounding erythema or drainage EXTREMITIES: All extremities contracted, 1+ right pedal edema NEUROLOGICAL: Awake SKIN: Warm, Dry Laboratory Results - last 24 hr 06/27/18 06/27/18 07:10 07:10 WBC 10.4 H RBC 3.90 Hgb 12.3 Hct 36.1 MCV 92.6 MCH 31.5 MCHC 34.0 RDW 14.3 Plt Count 271 MPV 7.4 L Absolute Neuts (auto) 9.2 H Neutrophils % 88.9 H Lymphocytes % 5.5 L D Monocytes % 5.3 Eosinophils % 0.1 Basophils % 0.2 Nucleated RBC % 0 Sodium 140 Potassium 3.6 Chloride 96 L Carbon Dioxide 41 H Anion Gap 3 L BUN 14 Creatinine 0.2 L Creat Clearance w eGFR 356.48 Random Glucose 108 H Calcium 8.8 Phosphorus 3.6 Magnesium 2.3 Total Bilirubin 0.2 AST 16 ALT 26 Alkaline Phosphatase 344 H Total Protein 6.2 L Albumin 2.4 L Microbiology 06/26/18 11:58 Blood - Peripheral Venous Blood Culture - Preliminary NO GROWTH OBTAINED AFTER 24 HOURS, INCUBATION TO CONTINUE FOR 4 DAYS. 06/26/18 11:58 Blood - Peripheral Venous Blood Culture - Preliminary NO GROWTH OBTAINED AFTER 24 HOURS, INCUBATION TO CONTINUE FOR 4 DAYS. Active Medications Albuterol Sulfate (Ventolin 0.083% Nebulizer Soln -) 1 amp NEB Q4H PRN PRN Reason: SHORT OF BREATH/WHEEZING Albuterol/Ipratropium (Duoneb -) 1 amp NEB RQID FRANCIE Last Admin: 06/27/18 16:25 Dose: 1 amp Amino Acids (Prosource No Carb Liquid Pkt) 30 ml GT DAILY FRANCIE Last Admin: 06/27/18 10:19 Dose: 30 ml Amlodipine Besylate (Norvasc -) 2.5 mg GT DAILY FRANCIE Last Admin: 06/27/18 10:19 Dose: 2.5 mg Arformoterol Tartrate (Brovana (Restricted To Pulmonology/Resp) -) 1 amp NEB RBID FRANCIE Last Admin: 06/27/18 07:30 Dose: 1 amp Ascorbic Acid (Vitamin C -) 500 mg GT BID FRANCIE Last Admin: 06/27/18 10:19 Dose: 500 mg Atorvastatin Calcium (Lipitor -) 20 mg PO HS FRANCIE Last Admin: 06/26/18 21:55 Dose: 20 mg Budesonide (Pulmicort 0.5 Mg Nebulizer -) 1 amp NEB RBID FRANCIE Last Admin: 06/27/18 07:30 Dose: 1 amp Calcium Carbonate/Cholecalciferol (Os-Jamar 500+D -) 2 tab GT HS [facility] Last Admin: 06/26/18 21:55 Dose: 2 tab Enoxaparin Sodium (Lovenox -) 40 mg SQ DAILY [facility] Last Admin: 06/27/18 10:19 Dose: 40 mg Lactated Ringer's (Lactated Ringers Solution) 1,000 mls @ 42 mls/hr IV ASDIR FRANCIE Last Admin: 06/26/18 17:21 Dose: 42 mls/hr Piperacillin Sod/Tazobactam (Sod 3.375 gm/ Dextrose) 50 mls @ 100 mls/hr IVPB Q8H-IV FRANCIE; Protocol Lactobacillus Acidophilus (Bacid -) 1 tab GT BID FRANCIE Last Admin: 06/27/18 10:19 Dose: 1 tab Levetiracetam (Keppra Oral Solution -) 1,500 mg GT BID [facility] Last Admin: 06/27/18 10:20 Dose: 1,500 mg Metoclopramide HCl (Reglan Oral Solution -) 5 mg GT QID [facility] Last Admin: 06/27/18 14:41 Dose: 5 mg Metoprolol Tartrate (Lopressor -) 25 mg GT BID [facility] Last Admin: 06/27/18 10:19 Dose: 25 mg Metoprolol Tartrate (Lopressor Injection -) 5 mg IVPB Q4H PRN PRN Reason: HYPERTENSION Multi-Ingredient Ointment (Zinc Oxide) 1 applic TP TID [facility] Last Admin: 06/27/18 14:44 Dose: 1 applic Non-Formulary Medication (Olopatadine Hcl [Pataday]) 2.5 ml OU DAILY [facility] Pantoprazole Sodium (Protonix -) 40 mg PO DAILY [facility] Last Admin: 06/27/18 10:19 Dose: 40 mg Phenobarbital (Phenobarbital -) 30 mg GT BID [facility] Last Admin: 06/27/18 10:19 Dose: 30 mg Prednisone (Deltasone -) 40 mg PO DAILY [facility] Ranitidine HCl (Zantac Oral Solution -) 150 mg GT BID [facility] Last Admin: 06/27/18 10:20 Dose: 150 mg Silver Sulfadiazine (Silvadene -) 1 applic TP DAILY [facility] Last Admin: 06/27/18 10:20 Dose: 1 applic Topiramate (Topamax -) 25 mg PO DAILY [facility] Last Admin: 06/27/18 10:19 Dose: 25 mg Topiramate (Topamax -) 200 mg GT BID [facility] Last Admin: 06/27/18 10:19 Dose: 200 mg Valproate Sodium (Depakene -) 750 mg GT BID [facility] Last Admin: 06/27/18 10:20 Dose: 750 mg IMAGING: -CXR: Levoscoliosis of the spine. No airspace opacities are seen in the visualized left lung. Elevated right diaphragm. No airspace opacities are seen in the right upper lung zone. No pneumothorax is seen. -Chest CTA: No definite CT evidence of pulmonary embolism. Evaluation of the lower lobe subsegmental vessels is somewhat limited due to vessel crowding. Bilateral wedge-shaped lower lobe opacities are noted posteriorly consistent with atelectasis and/or infiltrates. Very small left-sided and trace right- sided pleural effusions are seen. -EKG: SINUS RHYTHM WITH SHORT MA, VR 100, QTc 397 ASSESSMENT/PLAN: 67 y/o non-verbal Female with PMHx of anoxic brain injury, COPD (on 4L at home) , seizures, who was recently discharged from [facility] for Sepsis due to Pseudomonas UTI, presents from [facility] with Respiratory Distress. #Acute Hypercapneic Respiratory Failure -Unclear etiology; Still consider micro aspirations -Tachycardic, Tachypneic, Leukocytosis Improving -Continue Bilevel PRN (15/5/12/40%) -Continue Piperacillin/Tazobactam 3.375 Q6H (ABx course started on 06/26) -Prednisone 40mg PO Daily -Albuterol KELL Q6H PRN -Supplemental O2 to maintain SpO2 88-92% -Follow cultures -ID (Dr. Hickey) consulted -Pulmonary (Dr. Gann) consulted -Hold tube feeds in the setting of Aspiration -Keep HOB elevated -Aspiration precautions -Will likely need Bilevel on discharge at [facility] #Hypertension -Metoprolol Tartrate 50mg GT BID, Amlodipine to 5mg GT Daily #HLD -Atorvastatin 20mg GT HS #GERD -Metoclopramide, Pantoprazole #Seizures -Levetiracetam, Valproate, Topiramate, Phenobarbital #FEN -LR @ 42 -Monitor lytes -NPO #PPx -DVT: Lovenox -GI: PPI Code status: DNR Visit type - Emergency Visit Emergency Visit: Yes ED Registration Date: 06/26/18 Care time: The patient presented to the Emergency Department on the above date and was hospitalized for further evaluation of their emergent condition. - New Patient This patient is new to me today: No - Critical Care Critical Care patient: No - Discharge Referral Referred to [facility] Med P.C.: No
[2018-06-27] MEDS: LACTATED RINGERS SOLUTION 1,000 ML IV SCH (17:45)
[2018-06-27] MEDS: predniSONE 20 MG TABLET (UD) PO SCH (17:45)
[2018-06-27] MEDS: CALCIUM 500MG/VIT-D 200 UNITS COMBO TABLET (FP) GT SCH (22:33)
[2018-06-27] MEDS: ATORVASTATIN CA 20 MG TABLET (FP) PO SCH (22:33)
[2018-06-28] MEDS ORDERED: PIPERACILLIN/TAZOBACTAM 3.375 GM VIAL IVPB ONE ×2 (02:35→11:30)
[2018-06-28] MEDS ORDERED: DEXTROSE 5%-WATER - 50 ML IVPB ONE ×2 (02:35→11:30)
[2018-06-28] MEDS: PIPERACILLIN/TAZOB 3.375 GM 3.375 GM in DEXTROSE 5%-WATER - 50 ML IVPB SCH ×3 (02:47→17:49)
[2018-06-28] MEDS: ZINC OXIDE 20% TOPICAL OINTMENT 30 GM TUBE TP SCH ×3 (06:38→21:31)
[2018-06-28] MEDS ORDERED: PT OWN MED DRAWER 7, Y5N ONE ×5 (06:45→20:43)
[2018-06-28] MEDS: ARFORMOTEROL TARTRATE 15 MCG/2 ML VIAL NEB SCH ×2 (07:25→20:08)
[2018-06-28] MEDS: ALBUTEROL SO4 2.5/IPRATROPIUM 0.5 INH SOL 3 ML VIAL.NEB. NEB SCH ×4 (07:25→20:08)
[2018-06-28] MEDS: BUDESONIDE 0.5 MG/2 ML INH SUSP VIAL NEB SCH ×2 (08:39→20:08)
--- NOTE | 2018-06-28 09:04 | PN ---
Teaching Attending Note Name of Resident: Fay Healy ATTENDING PHYSICIAN STATEMENT I saw and evaluated the patient. I reviewed the resident's note and discussed the case with the resident. I agree with the resident's findings and plan as documented. SUBJECTIVE: not on distress saturating well on BipAP OBJECTIVE: Vital Signs Temperature 98.4 F 06/28/18 06:00 Pulse Rate 76 06/28/18 06:00 Respiratory Rate 22 H 06/28/18 06:00 Blood Pressure 131/66 06/28/18 06:00 O2 Sat by Pulse Oximetry (%) 99 06/27/18 21:00 Middle aged F mild respirtaory distress HEART: S1S2, tachycardic LUNGS: Diffuse rhonchi ABDOMEN: Soft, non-distended, normal BS, PEG in place with clean insertion site EXTREMITIES: Contracted Active Medications Albuterol Sulfate (Ventolin 0.083% Nebulizer Soln -) 1 amp NEB Q4H PRN PRN Reason: SHORT OF BREATH/WHEEZING Albuterol/Ipratropium (Duoneb -) 1 amp NEB RQID [facility]ANCIE Last Admin: 06/28/18 07:25 Dose: 1 amp Amino Acids (Prosource No Carb Liquid Pkt) 30 ml GT DAILY [facility] Last Admin: 06/27/18 10:19 Dose: 30 ml Amlodipine Besylate (Norvasc -) 2.5 mg GT DAILY [facility] Last Admin: 06/27/18 10:19 Dose: 2.5 mg Arformoterol Tartrate (Brovana (Restricted To Pulmonology/Resp) -) 1 amp NEB RBID [facility]ANCIE Last Admin: 06/28/18 07:25 Dose: 1 amp Ascorbic Acid (Vitamin C -) 500 mg GT BID [facility] Last Admin: 06/27/18 22:33 Dose: 500 mg Atorvastatin Calcium (Lipitor -) 20 mg PO HS [facility] Last Admin: 06/27/18 22:33 Dose: 20 mg Budesonide (Pulmicort 0.5 Mg Nebulizer -) 1 amp NEB RBID FRANCIE Last Admin: 06/28/18 08:39 Dose: 1 amp Calcium Carbonate/Cholecalciferol (Os-Jamar 500+D -) 2 tab GT HS [facility] Last Admin: 06/27/18 22:33 Dose: 2 tab Enoxaparin Sodium (Lovenox -) 40 mg SQ DAILY [facility] Last Admin: 06/27/18 10:19 Dose: 40 mg Lactated Ringer's (Lactated Ringers Solution) 1,000 mls @ 42 mls/hr IV ASDIR [facility]ANCIE Last Admin: 06/27/18 17:45 Dose: 42 mls/hr Piperacillin Sod/Tazobactam (Sod 3.375 gm/ Dextrose) 50 mls @ 100 mls/hr IVPB Q8H-IV [facility]ANCIE; Protocol Last Admin: 06/28/18 02:47 Dose: 100 mls/hr Lactobacillus Acidophilus (Bacid -) 1 tab GT BID [facility] Last Admin: 06/27/18 22:33 Dose: 1 tab Levetiracetam (Keppra Oral Solution -) 1,500 mg GT BID [facility] Last Admin: 06/27/18 22:36 Dose: 1,500 mg Metoclopramide HCl (Reglan Oral Solution -) 5 mg GT QID [facility] Last Admin: 06/27/18 22:34 Dose: 5 mg Metoprolol Tartrate (Lopressor -) 25 mg GT BID [facility] Last Admin: 06/27/18 22:33 Dose: 25 mg Metoprolol Tartrate (Lopressor Injection -) 5 mg IVPB Q4H PRN PRN Reason: HYPERTENSION Multi-Ingredient Ointment (Zinc Oxide) 1 applic TP TID [facility] Last Admin: 06/28/18 06:38 Dose: 1 applic Non-Formulary Medication (Olopatadine Hcl [Pataday]) 2.5 ml OU DAILY [facility] Pantoprazole Sodium (Protonix -) 40 mg PO DAILY [facility] Last Admin: 06/27/18 10:19 Dose: 40 mg Phenobarbital (Phenobarbital -) 30 mg GT BID [facility] Last Admin: 06/27/18 22:33 Dose: 30 mg Prednisone (Deltasone -) 40 mg PO DAILY [facility] Last Admin: 06/27/18 17:45 Dose: 40 mg Ranitidine HCl (Zantac Oral Solution -) 150 mg GT BID [facility] Last Admin: 06/27/18 22:34 Dose: 150 mg Silver Sulfadiazine (Silvadene -) 1 applic TP DAILY [facility] Last Admin: 06/27/18 10:20 Dose: 1 applic Topiramate (Topamax -) 25 mg PO DAILY [facility] Last Admin: 06/27/18 10:19 Dose: 25 mg Topiramate (Topamax -) 200 mg GT BID [facility] Last Admin: 06/27/18 22:37 Dose: 200 mg Valproate Sodium (Depakene -) 750 mg GT BID [facility] Last Admin: 06/27/18 22:36 Dose: 750 mg CBC, BMP 06/27/18 07:10 06/27/18 07:10 ASSESSMENT AND PLAN:67 yrs old F mental retardation from [place] present with respiratory distress with Hypoxic respiratory failutre due to Pneumonia Problem List - Problems (1) Acute on chronic respiratory failure with hypoxia and hypercapnia Assessment/Plan: Due to pneumonia, om BIPAP< IV zosyn, vancomysin, solumedrol, Pulmonary is on the case , Dc to [place] Code(s): J96.21 - ACUTE AND CHRONIC RESPIRATORY FAILURE WITH HYPOXIA; J96.22 - ACUTE AND CHRONIC RESPIRATORY FAILURE WITH HYPERCAPNIA (2) Anoxic brain damage Assessment/Plan: No actibve issue Code(s): G93.1 - ANOXIC BRAIN DAMAGE, NOT ELSEWHERE CLASSIFIED (3) Feeding by G-tube Assessment/Plan: functioning, needs PEG feeding Code(s): Z93.1 - GASTROSTOMY STATUS (4) Seizure disorder Assessment/Plan: cont Home meds Code(s): G40.909 - EPILEPSY, UNSP, NOT INTRACTABLE, WITHOUT STATUS EPILEPTICUS (5) Functional quadriplegia Assessment/Plan: chronic Code(s): R53.2 - FUNCTIONAL QUADRIPLEGIA
[2018-06-28] MEDS: ENOXAPARIN NA (PORCINE) 40 MG/0.4 ML DISP.SYRIN SQ SCH (12:02)
[2018-06-28] MEDS: PANTOPRAZOLE 40 MG TABLET (FP) PO SCH (12:03)
[2018-06-28] MEDS: ASCORBIC ACID 500 MG TABLET (FP) GT SCH ×2 (12:03→21:29)
[2018-06-28] MEDS: LACTOBACILLUS ACIDOPHILUS 1 TABLET GT SCH ×2 (12:03→21:29)
[2018-06-28] MEDS: AMINO ACIDS/PROTEIN HYDROLYS 30 ML LIQUID.PKT GT SCH (12:03)
[2018-06-28] MEDS: PHENobarbital 30 MG TABLET GT SCH ×2 (12:03→21:29)
[2018-06-28] MEDS: predniSONE 20 MG TABLET (UD) PO SCH (12:03)
[2018-06-28] MEDS: TOPIRAMATE 25 MG TABLET (FP) PO SCH (12:04)
[2018-06-28] MEDS: METOPROLOL TARTRATE 25 MG TABLET (FP) GT SCH ×2 (12:04→21:29)
[2018-06-28] MEDS: amLODIPine BESYLATE 2.5 MG TABLET (FP) GT SCH (12:04)
[2018-06-28] MEDS: SILVER SULFADIAZINE 1% TOP CREAM 50 GM JAR TP SCH (12:04)
[2018-06-28] MEDS: METOCLOPRAMIDE HCL 5 MG/5 ML UNIT DOSE CUP GT SCH ×4 (12:26→21:49)
[2018-06-28] MEDS: levETIRAcetam 500 MG/5 ML ORAL SOLUTION (UNIT-DOSE CUPS) GT SCH ×2 (12:27→21:30)
[2018-06-28] MEDS: VALPROATE SODIUM 250 MG/5 ML UNIT DOSE CUP GT SCH ×2 (12:27→21:31)
[2018-06-28] MEDS: RANITIDINE HCL 150 MG/10 ML UNIT-DOSE GT SCH ×2 (12:30→21:31)
[2018-06-28] MEDS: TOPIRAMATE 200 MG TABLET (FP) GT SCH ×2 (12:31→21:29)
--- NOTE | 2018-06-28 13:05 | PN ---
Progress Note (short form) - Note Progress Note: PULMONARY VSS/AFEBRILE Constitutional: Yes: Calm Eyes: Yes: Conjunctiva Clear, EOM Intact HENT: Yes: Atraumatic, Normocephalic Neck: Yes: Supple, Trachea Midline Cardiovascular: Yes: Regular Rate and Rhythm Respiratory: Yes: Diminished (decreased breath sounds at the bases) ...Clubbing: No Gastrointestinal: Yes: Normal Bowel Sounds, Soft. No: Tenderness Edema: No Neurological: Yes: Other (poorly responsive) Labs: noted Problem List - Problems (1) Acute on chronic respiratory failure with hypoxia and hypercapnia Code(s): J96.21 - ACUTE AND CHRONIC RESPIRATORY FAILURE WITH HYPOXIA; J96.22 - ACUTE AND CHRONIC RESPIRATORY FAILURE WITH HYPERCAPNIA (2) COPD exacerbation Code(s): J44.1 - CHRONIC OBSTRUCTIVE PULMONARY DISEASE W (ACUTE) EXACERBATION (3) Anoxic brain damage Code(s): G93.1 - ANOXIC BRAIN DAMAGE, NOT ELSEWHERE CLASSIFIED (4) Functional quadriplegia Code(s): R53.2 - FUNCTIONAL QUADRIPLEGIA Assessment/Plan Acute on Chronic Hypoxic and Hypercapneic Respiratory Failure Acute COPD Exacerbation Atelectasis vs Pneumonia Anoxic Brain Injury HTN Functional Quadriplegia - taper Fio2 to keep SpO2 >90% - can taper PO prednisone - inhaled bronchodilators - aspiration precautions - suspect element of microaspiration - short course of antibiotics - monitor fever curve, WBC trend - DVT prophylaxis Verenice LIGHT MD
--- NOTE | 2018-06-28 13:19 | PN ---
Physical Exam: SUBJECTIVE: Patient seen and examined this am. Resting comfortably on nasal canula. No acute overnight events as per nursing staff. OBJECTIVE: Vital Signs Period Temp Pulse Resp BP Sys/Restrepo Pulse Ox Last 24 Hr 97.7 F-98.9 F 70-103 18-22 129-152/66-83 99 GENERAL: Sleeping, NAD HEAD: Microcephaly EYES: PERRL ENT: Moist mucous membranes NECK: No JVD LUNGS: Diminished breath sounds at the bases, no wheezes, no crackles HEART: Tachycardic, S1, S2 without murmur ABDOMEN: Soft, nondistended, + bowel sounds, GTube present on the left without surrounding erythema or drainage EXTREMITIES: All extremities contracted, 1+ right pedal edema NEUROLOGICAL: Awake SKIN: Warm, Dry Microbiology 06/26/18 11:58 Blood - Peripheral Venous Blood Culture - Preliminary NO GROWTH OBTAINED AFTER 48 HOURS, INCUBATION TO CONTINUE FOR 3 DAYS. 06/26/18 11:58 Blood - Peripheral Venous Blood Culture - Preliminary NO GROWTH OBTAINED AFTER 48 HOURS, INCUBATION TO CONTINUE FOR 3 DAYS. Active Medications Albuterol Sulfate (Ventolin 0.083% Nebulizer Soln -) 1 amp NEB Q4H PRN PRN Reason: SHORT OF BREATH/WHEEZING Albuterol/Ipratropium (Duoneb -) 1 amp NEB RQID [facility] Last Admin: 06/28/18 11:22 Dose: 1 amp Amino Acids (Prosource No Carb Liquid Pkt) 30 ml GT DAILY [facility] Last Admin: 06/28/18 12:03 Dose: 30 ml Amlodipine Besylate (Norvasc -) 2.5 mg GT DAILY [facility] Last Admin: 06/28/18 12:04 Dose: 2.5 mg Arformoterol Tartrate (Brovana (Restricted To Pulmonology/Resp) -) 1 amp NEB RBID [facility] Last Admin: 06/28/18 07:25 Dose: 1 amp Ascorbic Acid (Vitamin C -) 500 mg GT BID [facility] Last Admin: 06/28/18 12:03 Dose: 500 mg Atorvastatin Calcium (Lipitor -) 20 mg PO HS [facility] Last Admin: 06/27/18 22:33 Dose: 20 mg Budesonide (Pulmicort 0.5 Mg Nebulizer -) 1 amp NEB RBID [facility] Last Admin: 06/28/18 08:39 Dose: 1 amp Calcium Carbonate/Cholecalciferol (Os-Jamar 500+D -) 2 tab GT HS [facility] Last Admin: 06/27/18 22:33 Dose: 2 tab Enoxaparin Sodium (Lovenox -) 40 mg SQ DAILY [facility] Last Admin: 06/28/18 12:02 Dose: 40 mg Lactated Ringer's (Lactated Ringers Solution) 1,000 mls @ 42 mls/hr IV ASDIR [facility] Last Admin: 06/27/18 17:45 Dose: 42 mls/hr Piperacillin Sod/Tazobactam (Sod 3.375 gm/ Dextrose) 50 mls @ 100 mls/hr IVPB Q8H-IV [facility]; Protocol Last Admin: 06/28/18 12:03 Dose: 100 mls/hr Lactobacillus Acidophilus (Bacid -) 1 tab GT BID [facility] Last Admin: 06/28/18 12:03 Dose: 1 tab Levetiracetam (Keppra Oral Solution -) 1,500 mg GT BID [facility] Last Admin: 06/28/18 12:27 Dose: 1,500 mg Metoclopramide HCl (Reglan Oral Solution -) 5 mg GT QID [facility] Last Admin: 06/28/18 12:26 Dose: 5 mg Metoprolol Tartrate (Lopressor -) 25 mg GT BID [facility] Last Admin: 06/28/18 12:04 Dose: 25 mg Metoprolol Tartrate (Lopressor Injection -) 5 mg IVPB Q4H PRN PRN Reason: HYPERTENSION Multi-Ingredient Ointment (Zinc Oxide) 1 applic TP TID [facility] Last Admin: 06/28/18 06:38 Dose: 1 applic Non-Formulary Medication (Olopatadine Hcl [Pataday]) 2.5 ml OU DAILY [facility] Pantoprazole Sodium (Protonix -) 40 mg PO DAILY [facility] Last Admin: 06/28/18 12:03 Dose: 40 mg Phenobarbital (Phenobarbital -) 30 mg GT BID [facility] Last Admin: 06/28/18 12:03 Dose: 30 mg Prednisone (Deltasone -) 40 mg PO DAILY [facility] Last Admin: 06/28/18 12:03 Dose: 40 mg Ranitidine HCl (Zantac Oral Solution -) 150 mg GT BID [facility] Last Admin: 06/28/18 12:30 Dose: 150 mg Silver Sulfadiazine (Silvadene -) 1 applic TP DAILY [facility] Last Admin: 06/28/18 12:04 Dose: 1 applic Topiramate (Topamax -) 25 mg PO DAILY [facility] Last Admin: 06/28/18 12:04 Dose: 25 mg Topiramate (Topamax -) 200 mg GT BID [facility] Last Admin: 06/28/18 12:31 Dose: 200 mg Valproate Sodium (Depakene -) 750 mg GT BID [facility] Last Admin: 06/28/18 12:27 Dose: 750 mg IMAGING: -CXR: Levoscoliosis of the spine. No airspace opacities are seen in the visualized left lung. Elevated right diaphragm. No airspace opacities are seen in the right upper lung zone. No pneumothorax is seen. -Chest CTA: No definite CT evidence of pulmonary embolism. Evaluation of the lower lobe subsegmental vessels is somewhat limited due to vessel crowding. Bilateral wedge-shaped lower lobe opacities are noted posteriorly consistent with atelectasis and/or infiltrates. Very small left-sided and trace right- sided pleural effusions are seen. -EKG: SINUS RHYTHM WITH SHORT WI, VR 100, QTc 397 ASSESSMENT/PLAN: 67 y/o non-verbal Female with PMHx of anoxic brain injury, COPD (on 4L at home) , seizures, who was recently discharged from [facility] for Sepsis due to Pseudomonas UTI, presents from [facility] with Respiratory Distress. #Acute Hypercapneic Respiratory Failure -Unclear etiology; Still consider micro aspirations -Continue Bilevel PRN (17/07//40%) -Continue Piperacillin/Tazobactam 3.375 Q6H (ABx course started on 06/26) -Prednisone 40mg PO Daily -Albuterol KELL Q6H PRN -Supplemental O2 to maintain SpO2 88-92% -Follow cultures -ID (Dr. Hickey) consulted -Pulmonary (Dr. Gann) consulted -Hold tube feeds in the setting of Aspiration -Keep HOB elevated -Aspiration precautions -Will likely need Bilevel on discharge at [facility] #Hypertension -Metoprolol Tartrate 50mg GT BID, Amlodipine to 5mg GT Daily #HLD -Atorvastatin 20mg GT HS #GERD -Metoclopramide, Pantoprazole #Seizures -Levetiracetam, Valproate, Topiramate, Phenobarbital #FEN -LR @ 42 -Monitor lytes -NPO #PPx -DVT: Lovenox -GI: PPI Code status: DNR Visit type - Emergency Visit Emergency Visit: Yes ED Registration Date: 06/26/18 Care time: The patient presented to the Emergency Department on the above date and was hospitalized for further evaluation of their emergent condition. - New Patient This patient is new to me today: No - Critical Care Critical Care patient: No - Discharge Referral Referred to [facility] Med P.C.: No
--- NOTE | 2018-06-28 14:04 | PN ---
Progress Note, Physician - Current Medication List Current Medications: Active Medications Albuterol Sulfate (Ventolin 0.083% Nebulizer Soln -) 1 amp NEB Q4H PRN PRN Reason: SHORT OF BREATH/WHEEZING Albuterol/Ipratropium (Duoneb -) 1 amp NEB RQID [facility] Last Admin: 06/28/18 11:22 Dose: 1 amp Amino Acids (Prosource No Carb Liquid Pkt) 30 ml GT DAILY [facility] Last Admin: 06/28/18 12:03 Dose: 30 ml Amlodipine Besylate (Norvasc -) 2.5 mg GT DAILY [facility] Last Admin: 06/28/18 12:04 Dose: 2.5 mg Arformoterol Tartrate (Brovana (Restricted To Pulmonology/Resp) -) 1 amp NEB RBID [facility] Last Admin: 06/28/18 07:25 Dose: 1 amp Ascorbic Acid (Vitamin C -) 500 mg GT BID [facility] Last Admin: 06/28/18 12:03 Dose: 500 mg Atorvastatin Calcium (Lipitor -) 20 mg PO HS [facility] Last Admin: 06/27/18 22:33 Dose: 20 mg Budesonide (Pulmicort 0.5 Mg Nebulizer -) 1 amp NEB RBID [facility] Last Admin: 06/28/18 08:39 Dose: 1 amp Calcium Carbonate/Cholecalciferol (Os-Jamar 500+D -) 2 tab GT HS [facility] Last Admin: 06/27/18 22:33 Dose: 2 tab Enoxaparin Sodium (Lovenox -) 40 mg SQ DAILY [facility] Last Admin: 06/28/18 12:02 Dose: 40 mg Lactated Ringer's (Lactated Ringers Solution) 1,000 mls @ 42 mls/hr IV [facility]IR [facility] Last Admin: 06/27/18 17:45 Dose: 42 mls/hr Piperacillin Sod/Tazobactam (Sod 3.375 gm/ Dextrose) 50 mls @ 100 mls/hr IVPB Q8H-IV [facility]; Protocol Last Admin: 06/28/18 12:03 Dose: 100 mls/hr Lactobacillus Acidophilus (Bacid -) 1 tab GT BID [facility] Last Admin: 06/28/18 12:03 Dose: 1 tab Levetiracetam (Keppra Oral Solution -) 1,500 mg GT BID [facility] Last Admin: 06/28/18 12:27 Dose: 1,500 mg Metoclopramide HCl (Reglan Oral Solution -) 5 mg GT QID [facility] Last Admin: 06/28/18 12:26 Dose: 5 mg Metoprolol Tartrate (Lopressor -) 25 mg GT BID [facility] Last Admin: 06/28/18 12:04 Dose: 25 mg Metoprolol Tartrate (Lopressor Injection -) 5 mg IVPB Q4H PRN PRN Reason: HYPERTENSION Multi-Ingredient Ointment (Zinc Oxide) 1 applic TP TID [facility] Last Admin: 06/28/18 06:38 Dose: 1 applic Non-Formulary Medication (Olopatadine Hcl [Pataday]) 2.5 ml OU DAILY [facility] Pantoprazole Sodium (Protonix -) 40 mg PO DAILY [facility] Last Admin: 06/28/18 12:03 Dose: 40 mg Phenobarbital (Phenobarbital -) 30 mg GT BID [facility] Last Admin: 06/28/18 12:03 Dose: 30 mg Prednisone (Deltasone -) 40 mg PO DAILY [facility] Last Admin: 06/28/18 12:03 Dose: 40 mg Ranitidine HCl (Zantac Oral Solution -) 150 mg GT BID [facility] Last Admin: 06/28/18 12:30 Dose: 150 mg Silver Sulfadiazine (Silvadene -) 1 applic TP DAILY [facility] Last Admin: 06/28/18 12:04 Dose: 1 applic Topiramate (Topamax -) 25 mg PO DAILY [facility] Last Admin: 06/28/18 12:04 Dose: 25 mg Topiramate (Topamax -) 200 mg GT BID [facility] Last Admin: 06/28/18 12:31 Dose: 200 mg Valproate Sodium (Depakene -) 750 mg GT BID [facility] Last Admin: 06/28/18 12:27 Dose: 750 mg - Objective Vital Signs: Vital Signs Temperature 98 F 06/28/18 09:00 Pulse Rate 97 H 06/28/18 09:00 Respiratory Rate 20 06/28/18 09:00 Blood Pressure 150/70 06/28/18 09:00 O2 Sat by Pulse Oximetry (%) 99 06/27/18 21:00 Labs: CBC, BMP 06/27/18 07:10 06/27/18 07:10
[2018-06-28] MEDS: LACTATED RINGERS SOLUTION 1,000 ML IV SCH (15:33)
[2018-06-28 16:16] VITALS: BMI 22.4
[2018-06-28] MEDS: ATORVASTATIN CA 20 MG TABLET (FP) PO SCH (21:29)
[2018-06-28] MEDS: CALCIUM 500MG/VIT-D 200 UNITS COMBO TABLET (FP) GT SCH (21:29)
[2018-06-29] MEDS ORDERED: PIPERACILLIN/TAZOBACTAM 3.375 GM VIAL IVPB ONE ×3 (01:26→17:36)
[2018-06-29] MEDS ORDERED: DEXTROSE 5%-WATER - 50 ML IVPB ONE ×3 (01:26→17:36)
[2018-06-29] MEDS: PIPERACILLIN/TAZOB 3.375 GM 3.375 GM in DEXTROSE 5%-WATER - 50 ML IVPB SCH ×3 (01:38→17:38)
[2018-06-29] MEDS: LACTATED RINGERS SOLUTION 1,000 ML IV SCH ×2 (04:38→17:38)
[2018-06-29] MEDS: ZINC OXIDE 20% TOPICAL OINTMENT 30 GM TUBE TP SCH ×3 (06:06→23:03)
[2018-06-29] MEDS: ARFORMOTEROL TARTRATE 15 MCG/2 ML VIAL NEB SCH ×2 (07:41→20:40)
[2018-06-29] MEDS: ALBUTEROL SO4 2.5/IPRATROPIUM 0.5 INH SOL 3 ML VIAL.NEB. NEB SCH ×4 (07:41→20:40)
[2018-06-29] MEDS: BUDESONIDE 0.5 MG/2 ML INH SUSP VIAL NEB SCH ×2 (07:42→20:41)
--- NOTE | 2018-06-29 08:01 | PN ---
Progress Note, Physician Chief Complaint: no acute distress off BIPAP sleeping comfortably - Current Medication List Current Medications: Active Medications Albuterol Sulfate (Ventolin 0.083% Nebulizer Soln -) 1 amp NEB Q4H PRN PRN Reason: SHORT OF BREATH/WHEEZING Albuterol/Ipratropium (Duoneb -) 1 amp NEB RQID [facility] Last Admin: 06/29/18 07:41 Dose: 1 amp Amino Acids (Prosource No Carb Liquid Pkt) 30 ml GT DAILY [facility] Last Admin: 06/28/18 12:03 Dose: 30 ml Amlodipine Besylate (Norvasc -) 2.5 mg GT DAILY [facility] Last Admin: 06/28/18 12:04 Dose: 2.5 mg Arformoterol Tartrate (Brovana (Restricted To Pulmonology/Resp) -) 1 amp NEB RBID [facility] Last Admin: 06/29/18 07:41 Dose: 1 amp Ascorbic Acid (Vitamin C -) 500 mg GT BID [facility] Last Admin: 06/28/18 21:29 Dose: 500 mg Atorvastatin Calcium (Lipitor -) 20 mg PO HS [facility] Last Admin: 06/28/18 21:29 Dose: 20 mg Budesonide (Pulmicort 0.5 Mg Nebulizer -) 1 amp NEB RBID [facility] Last Admin: 06/29/18 07:42 Dose: 1 amp Calcium Carbonate/Cholecalciferol (Os-Jamar 500+D -) 2 tab GT HS [facility] Last Admin: 06/28/18 21:29 Dose: 2 tab Enoxaparin Sodium (Lovenox -) 40 mg SQ DAILY [facility] Last Admin: 06/28/18 12:02 Dose: 40 mg Lactated Ringer's (Lactated Ringers Solution) 1,000 mls @ 42 mls/hr IV ASDIR [facility] Last Admin: 06/29/18 04:38 Dose: 42 mls/hr Piperacillin Sod/Tazobactam (Sod 3.375 gm/ Dextrose) 50 mls @ 100 mls/hr IVPB Q8H-IV [facility]; Protocol Last Admin: 06/29/18 01:38 Dose: 100 mls/hr Lactobacillus Acidophilus (Bacid -) 1 tab GT BID [facility] Last Admin: 06/28/18 21:29 Dose: 1 tab Levetiracetam (Keppra Oral Solution -) 1,500 mg GT BID [facility] Last Admin: 06/28/18 21:30 Dose: 1,500 mg Metoclopramide HCl (Reglan Oral Solution -) 5 mg GT QID [facility] Last Admin: 06/28/18 21:49 Dose: 5 mg Metoprolol Tartrate (Lopressor -) 25 mg GT BID [facility] Last Admin: 06/28/18 21:29 Dose: 25 mg Metoprolol Tartrate (Lopressor Injection -) 5 mg IVPB Q4H PRN PRN Reason: HYPERTENSION Multi-Ingredient Ointment (Zinc Oxide) 1 applic TP TID [facility] Last Admin: 06/29/18 06:06 Dose: 1 applic Non-Formulary Medication (Olopatadine Hcl [Pataday]) 2.5 ml OU DAILY [facility] Pantoprazole Sodium (Protonix -) 40 mg PO DAILY [facility] Last Admin: 06/28/18 12:03 Dose: 40 mg Phenobarbital (Phenobarbital -) 30 mg GT BID [facility] Last Admin: 06/28/18 21:29 Dose: 30 mg Prednisone (Deltasone -) 40 mg PO DAILY [facility] Last Admin: 06/28/18 12:03 Dose: 40 mg Ranitidine HCl (Zantac Oral Solution -) 150 mg GT BID [facility] Last Admin: 06/28/18 21:31 Dose: 150 mg Silver Sulfadiazine (Silvadene -) 1 applic TP DAILY [facility] Last Admin: 06/28/18 12:04 Dose: 1 applic Topiramate (Topamax -) 25 mg PO DAILY [facility] Last Admin: 06/28/18 12:04 Dose: 25 mg Topiramate (Topamax -) 200 mg GT BID [facility] Last Admin: 06/28/18 21:29 Dose: 200 mg Valproate Sodium (Depakene -) 750 mg GT BID [facility] Last Admin: 06/28/18 21:31 Dose: 750 mg - Objective Vital Signs: Vital Signs Temperature 98.5 F 06/29/18 06:00 Pulse Rate 96 H 06/28/18 22:00 Respiratory Rate 20 06/29/18 06:00 Blood Pressure 179/97 H 06/29/18 06:00 O2 Sat by Pulse Oximetry (%) 94 L 06/29/18 06:49 Middle aged F mild respiratory distress HEART: S1S2, tachycardic LUNGS: Diffuse rhonchi ABDOMEN: Soft, non-distended, normal BS, PEG in place with clean insertion site EXTREMITIES: Contracted BENCH HAND: Oriented to self Labs: CBC, BMP 06/27/18 07:10 06/27/18 07:10 Problem List - Problems (1) Acute on chronic respiratory failure with hypoxia and hypercapnia Assessment/Plan: Due to pneumonia, om BIPAP< IV zosyn, solumedrol, Pulmonary is on the case , Dc to [facility] on BIPAP Code(s): J96.21 - ACUTE AND CHRONIC RESPIRATORY FAILURE WITH HYPOXIA; J96.22 - ACUTE AND CHRONIC RESPIRATORY FAILURE WITH HYPERCAPNIA (2) Anoxic brain damage Assessment/Plan: No active issue Code(s): G93.1 - ANOXIC BRAIN DAMAGE, NOT ELSEWHERE CLASSIFIED (3) Feeding by G-tube Assessment/Plan: functioning, needs PEG feeding Code(s): Z93.1 - GASTROSTOMY STATUS (4) Seizure disorder Assessment/Plan: cont Home meds Code(s): G40.909 - EPILEPSY, UNSP, NOT INTRACTABLE, WITHOUT STATUS EPILEPTICUS (5) Functional quadriplegia Assessment/Plan: chronic Code(s): R53.2 - FUNCTIONAL QUADRIPLEGIA (6) HTN (hypertension) Assessment/Plan: Well controlled cont current meds via g tube Code(s): I10 - ESSENTIAL (PRIMARY) HYPERTENSION (7) Aspiration pneumonia Assessment/Plan: afebrile cultures are -ve, f/U CBC if -ve will Dc abx. Code(s): J69.0 - PNEUMONITIS DUE TO INHALATION OF FOOD AND VOMIT
[2018-06-29] MEDS: AMINO ACIDS/PROTEIN HYDROLYS 30 ML LIQUID.PKT GT SCH (09:49)
[2018-06-29] MEDS: ASCORBIC ACID 500 MG TABLET (FP) GT SCH ×2 (09:50→23:01)
[2018-06-29] MEDS: PHENobarbital 30 MG TABLET GT SCH ×2 (09:50→23:01)
[2018-06-29] MEDS: LACTOBACILLUS ACIDOPHILUS 1 TABLET GT SCH ×2 (09:50→23:01)
[2018-06-29] MEDS: predniSONE 20 MG TABLET (UD) PO SCH (09:50)
[2018-06-29] MEDS: amLODIPine BESYLATE 2.5 MG TABLET (FP) GT SCH (09:51)
[2018-06-29] MEDS: ENOXAPARIN NA (PORCINE) 40 MG/0.4 ML DISP.SYRIN SQ SCH (09:51)
[2018-06-29] MEDS: PANTOPRAZOLE 40 MG TABLET (FP) PO SCH (09:51)
[2018-06-29] MEDS: METOPROLOL TARTRATE 25 MG TABLET (FP) GT SCH ×2 (09:51→23:02)
[2018-06-29] MEDS: TOPIRAMATE 25 MG TABLET (FP) PO SCH (09:51)
[2018-06-29] MEDS: VALPROATE SODIUM 250 MG/5 ML UNIT DOSE CUP GT SCH ×2 (09:52→22:49)
[2018-06-29] MEDS: levETIRAcetam 500 MG/5 ML ORAL SOLUTION (UNIT-DOSE CUPS) GT SCH ×2 (09:54→22:47)
[2018-06-29] MEDS: TOPIRAMATE 200 MG TABLET (FP) GT SCH ×2 (09:54→22:49)
[2018-06-29] MEDS: METOCLOPRAMIDE HCL 5 MG/5 ML UNIT DOSE CUP GT SCH ×4 (09:54→22:48)
[2018-06-29] MEDS: RANITIDINE HCL 150 MG/10 ML UNIT-DOSE GT SCH ×2 (09:55→23:25)
[2018-06-29] MEDS: SILVER SULFADIAZINE 1% TOP CREAM 50 GM JAR TP SCH (10:03)
--- NOTE | 2018-06-29 12:21 | PN ---
Progress Note (short form) - Note Progress Note: Poorly responsive on NIPPV support, 40% FiO2. No acute events overnight. Intake & Output 06/26/18 06/27/18 06/28/18 06/29/18 23:59 23:59 23:59 23:59 Intake Total 1282 1053 50 Output Total 100 500 Balance 1182 553 50 Weight 100 lb 100 lb Last Vital Signs Temp Pulse Resp BP Pulse Ox 98.5 F 96 H 20 179/97 H 94 L 06/29/18 06:00 06/28/18 22:00 06/29/18 06:00 06/29/18 06:00 06/29/18 06:49 Active Medications Albuterol Sulfate (Ventolin 0.083% Nebulizer Soln -) 1 amp NEB Q4H PRN PRN Reason: SHORT OF BREATH/WHEEZING Albuterol/Ipratropium (Duoneb -) 1 amp NEB RQID [facility] Last Admin: 06/29/18 07:41 Dose: 1 amp Amino Acids (Prosource No Carb Liquid Pkt) 30 ml GT DAILY [facility] Last Admin: 06/29/18 09:49 Dose: 30 ml Amlodipine Besylate (Norvasc -) 2.5 mg GT DAILY [facility] Last Admin: 06/29/18 09:51 Dose: 2.5 mg Arformoterol Tartrate (Brovana (Restricted To Pulmonology/Resp) -) 1 amp NEB RBID [facility] Last Admin: 06/29/18 07:41 Dose: 1 amp Ascorbic Acid (Vitamin C -) 500 mg GT BID [facility] Last Admin: 06/29/18 09:50 Dose: 500 mg Atorvastatin Calcium (Lipitor -) 20 mg PO HS [facility] Last Admin: 06/28/18 21:29 Dose: 20 mg Budesonide (Pulmicort 0.5 Mg Nebulizer -) 1 amp NEB RBID [facility] Last Admin: 06/29/18 07:42 Dose: 1 amp Calcium Carbonate/Cholecalciferol (Os-Jamar 500+D -) 2 tab GT HS [facility] Last Admin: 06/28/18 21:29 Dose: 2 tab Enoxaparin Sodium (Lovenox -) 40 mg SQ DAILY [facility] Last Admin: 06/29/18 09:51 Dose: 40 mg Lactated Ringer's (Lactated Ringers Solution) 1,000 mls @ 42 mls/hr IV ASDIR [facility] Last Admin: 06/29/18 04:38 Dose: 42 mls/hr Piperacillin Sod/Tazobactam (Sod 3.375 gm/ Dextrose) 50 mls @ 100 mls/hr IVPB Q8H-IV [facility]; Protocol Last Admin: 06/29/18 09:55 Dose: 100 mls/hr Lactobacillus Acidophilus (Bacid -) 1 tab GT BID [facility] Last Admin: 06/29/18 09:50 Dose: 1 tab Levetiracetam (Keppra Oral Solution -) 1,500 mg GT BID [facility] Last Admin: 06/29/18 09:54 Dose: 1,500 mg Metoclopramide HCl (Reglan Oral Solution -) 5 mg GT QID [facility] Last Admin: 06/29/18 09:54 Dose: 5 mg Metoprolol Tartrate (Lopressor -) 25 mg GT BID [facility] Last Admin: 06/29/18 09:51 Dose: 25 mg Metoprolol Tartrate (Lopressor Injection -) 5 mg IVPB Q4H PRN PRN Reason: HYPERTENSION Multi-Ingredient Ointment (Zinc Oxide) 1 applic TP TID [facility] Last Admin: 06/29/18 06:06 Dose: 1 applic Non-Formulary Medication (Olopatadine Hcl [Pataday]) 2.5 ml OU DAILY [facility] Pantoprazole Sodium (Protonix -) 40 mg PO DAILY [facility] Last Admin: 06/29/18 09:51 Dose: 40 mg Phenobarbital (Phenobarbital -) 30 mg GT BID [facility] Last Admin: 06/29/18 09:50 Dose: 30 mg Prednisone (Deltasone -) 40 mg PO DAILY [facility] Last Admin: 06/29/18 09:50 Dose: 40 mg Ranitidine HCl (Zantac Oral Solution -) 150 mg GT BID [facility] Last Admin: 06/29/18 09:55 Dose: 150 mg Silver Sulfadiazine (Silvadene -) 1 applic TP DAILY [facility] Last Admin: 06/29/18 10:03 Dose: 1 applic Topiramate (Topamax -) 25 mg PO DAILY [facility] Last Admin: 06/29/18 09:51 Dose: 25 mg Topiramate (Topamax -) 200 mg GT BID [facility] Last Admin: 06/29/18 09:54 Dose: 200 mg Valproate Sodium (Depakene -) 750 mg GT BID [facility] Last Admin: 06/29/18 09:52 Dose: 750 mg Constitutional: Yes: NAD on NIPPV support Eyes: Yes: Conjunctiva Clear, EOM Intact HENT: Yes: Atraumatic, Normocephalic Neck: Yes: Supple, Trachea Midline Cardiovascular: Yes: Regular Rate and Rhythm Respiratory: Yes: Diminished at the bases, few scattered rhonchi ...Clubbing: No Gastrointestinal: Yes: Normal Bowel Sounds, Soft. No: Tenderness Edema: No Neurological: Yes: Other (poorly responsive) Labs: Problem List - Problems (1) Acute on chronic respiratory failure with hypoxia and hypercapnia Code(s): J96.21 - ACUTE AND CHRONIC RESPIRATORY FAILURE WITH HYPOXIA; J96.22 - ACUTE AND CHRONIC RESPIRATORY FAILURE WITH HYPERCAPNIA (2) COPD exacerbation Code(s): J44.1 - CHRONIC OBSTRUCTIVE PULMONARY DISEASE W (ACUTE) EXACERBATION (3) Anoxic brain damage Code(s): G93.1 - ANOXIC BRAIN DAMAGE, NOT ELSEWHERE CLASSIFIED (4) Functional quadriplegia Code(s): R53.2 - FUNCTIONAL QUADRIPLEGIA Assessment/Plan Acute on Chronic Hypoxic and Hypercapneic Respiratory Failure Acute COPD Exacerbation Atelectasis vs Pneumonia Anoxic Brain Injury HTN Functional Quadriplegia - Can wean off NIPPV support as tolerated - Prednisone 40mg daily - inhaled bronchodilators - aspiration precautions - suspect recurrent microaspiration - ABX per ID - DVT prophylaxis - DNR Dr Bella
--- NOTE | 2018-06-29 16:13 | PN ---
Progress Note, Physician History of Present Illness: Pt seen and examined. Events noted, labs/imaging results noted. Currently she is afebrile, without acute distress. Noncommunicative at baseline. - Current Medication List Current Medications: Active Medications Albuterol Sulfate (Ventolin 0.083% Nebulizer Soln -) 1 amp NEB Q4H PRN PRN Reason: SHORT OF BREATH/WHEEZING Albuterol/Ipratropium (Duoneb -) 1 amp NEB RQID [facility] Last Admin: 06/29/18 12:46 Dose: 1 amp Amino Acids (Prosource No Carb Liquid Pkt) 30 ml GT DAILY [facility] Last Admin: 06/29/18 09:49 Dose: 30 ml Amlodipine Besylate (Norvasc -) 2.5 mg GT DAILY [facility] Last Admin: 06/29/18 09:51 Dose: 2.5 mg Arformoterol Tartrate (Brovana (Restricted To Pulmonology/Resp) -) 1 amp NEB RBID [facility] Last Admin: 06/29/18 07:41 Dose: 1 amp Ascorbic Acid (Vitamin C -) 500 mg GT BID [facility] Last Admin: 06/29/18 09:50 Dose: 500 mg Atorvastatin Calcium (Lipitor -) 20 mg PO HS [facility] Last Admin: 06/28/18 21:29 Dose: 20 mg Budesonide (Pulmicort 0.5 Mg Nebulizer -) 1 amp NEB RBID [facility] Last Admin: 06/29/18 07:42 Dose: 1 amp Calcium Carbonate/Cholecalciferol (Os-Jamar 500+D -) 2 tab GT HS [facility] Last Admin: 06/28/18 21:29 Dose: 2 tab Enoxaparin Sodium (Lovenox -) 40 mg SQ DAILY [facility] Last Admin: 06/29/18 09:51 Dose: 40 mg Lactated Ringer's (Lactated Ringers Solution) 1,000 mls @ 42 mls/hr IV ASDIR [facility] Last Admin: 06/29/18 04:38 Dose: 42 mls/hr Piperacillin Sod/Tazobactam (Sod 3.375 gm/ Dextrose) 50 mls @ 100 mls/hr IVPB Q8H-IV [facility]; Protocol Last Admin: 06/29/18 09:55 Dose: 100 mls/hr Lactobacillus Acidophilus (Bacid -) 1 tab GT BID [facility] Last Admin: 06/29/18 09:50 Dose: 1 tab Levetiracetam (Keppra Oral Solution -) 1,500 mg GT BID [facility] Last Admin: 06/29/18 09:54 Dose: 1,500 mg Metoclopramide HCl (Reglan Oral Solution -) 5 mg GT QID [facility] Last Admin: 06/29/18 14:16 Dose: 5 mg Metoprolol Tartrate (Lopressor -) 25 mg GT BID [facility] Last Admin: 06/29/18 09:51 Dose: 25 mg Metoprolol Tartrate (Lopressor Injection -) 5 mg IVPB Q4H PRN PRN Reason: HYPERTENSION Multi-Ingredient Ointment (Zinc Oxide) 1 applic TP TID [facility] Last Admin: 06/29/18 14:17 Dose: 1 applic Non-Formulary Medication (Olopatadine Hcl [Pataday]) 2.5 ml OU DAILY [facility] Pantoprazole Sodium (Protonix -) 40 mg PO DAILY [facility] Last Admin: 06/29/18 09:51 Dose: 40 mg Phenobarbital (Phenobarbital -) 30 mg GT BID [facility] Last Admin: 06/29/18 09:50 Dose: 30 mg Prednisone (Deltasone -) 40 mg PO DAILY [facility] Last Admin: 06/29/18 09:50 Dose: 40 mg Ranitidine HCl (Zantac Oral Solution -) 150 mg GT BID [facility] Last Admin: 06/29/18 09:55 Dose: 150 mg Silver Sulfadiazine (Silvadene -) 1 applic TP DAILY [facility] Last Admin: 06/29/18 10:03 Dose: 1 applic Topiramate (Topamax -) 25 mg PO DAILY [facility] Last Admin: 06/29/18 09:51 Dose: 25 mg Topiramate (Topamax -) 200 mg GT BID [facility] Last Admin: 06/29/18 09:54 Dose: 200 mg Valproate Sodium (Depakene -) 750 mg GT BID [facility] Last Admin: 06/29/18 09:52 Dose: 750 mg - Objective Vital Signs: Vital Signs Temperature 98.8 F 06/29/18 14:24 Pulse Rate 96 H 06/28/18 22:00 Respiratory Rate 20 06/29/18 06:00 Blood Pressure 159/92 06/29/18 14:24 O2 Sat by Pulse Oximetry (%) 94 L 06/29/18 06:49 Constitutional: Yes: No Distress Cardiovascular: Yes: Regular Rate and Rhythm Respiratory: Yes: Other (poor inspiratory effort, no audible wheeze/rhonchi) Gastrointestinal: Yes: Normal Bowel Sounds, Soft, Other (peg) Extremities: Yes: Other (contracted) Integumentary: Yes: WNL Labs: CBC, BMP 06/27/18 07:10 06/27/18 07:10 Problem List - Problems (1) Acute on chronic respiratory failure with hypoxia and hypercapnia Code(s): J96.21 - ACUTE AND CHRONIC RESPIRATORY FAILURE WITH HYPOXIA; J96.22 - ACUTE AND CHRONIC RESPIRATORY FAILURE WITH HYPERCAPNIA (2) COPD exacerbation Code(s): J44.1 - CHRONIC OBSTRUCTIVE PULMONARY DISEASE W (ACUTE) EXACERBATION (3) Anoxic brain damage Code(s): G93.1 - ANOXIC BRAIN DAMAGE, NOT ELSEWHERE CLASSIFIED (4) Feeding by G-tube Code(s): Z93.1 - GASTROSTOMY STATUS (5) Functional quadriplegia Code(s): R53.2 - FUNCTIONAL QUADRIPLEGIA (6) HLD (hyperlipidemia) Code(s): E78.5 - HYPERLIPIDEMIA, UNSPECIFIED (7) HTN (hypertension) Code(s): I10 - ESSENTIAL (PRIMARY) HYPERTENSION (8) Seizure disorder Code(s): G40.909 - EPILEPSY, UNSP, NOT INTRACTABLE, WITHOUT STATUS EPILEPTICUS Assessment/Plan Acute on Chronic hypoxic respiratory failure HCAP vs. Aspiration COPD Anoxic brain injury Functional quadriplegia Seizure d.o. -- continue current antibiotics -- wbc decreased, afebrile -- aspiration precautions continue monitor without current distress
[2018-06-29] MEDS: CALCIUM 500MG/VIT-D 200 UNITS COMBO TABLET (FP) GT SCH (23:01)
[2018-06-29] MEDS: ATORVASTATIN CA 20 MG TABLET (FP) PO SCH (23:02)
[2018-06-29] MEDS ORDERED: PT OWN MED DRAWER 7, Y5N ONE (23:05)
[2018-06-30] MEDS ORDERED: PIPERACILLIN/TAZOBACTAM 3.375 GM VIAL IVPB ONE ×3 (01:02→16:07)
[2018-06-30] MEDS ORDERED: DEXTROSE 5%-WATER - 50 ML IVPB ONE ×3 (01:02→16:08)
[2018-06-30] MEDS: PIPERACILLIN/TAZOB 3.375 GM 3.375 GM in DEXTROSE 5%-WATER - 50 ML IVPB SCH ×3 (01:19→17:14)
[2018-06-30] MEDS: ZINC OXIDE 20% TOPICAL OINTMENT 30 GM TUBE TP SCH ×4 (06:00→23:30)
[2018-06-30] MEDS: ARFORMOTEROL TARTRATE 15 MCG/2 ML VIAL NEB SCH ×2 (07:35→20:32)
[2018-06-30] MEDS: BUDESONIDE 0.5 MG/2 ML INH SUSP VIAL NEB SCH ×2 (07:35→20:32)
[2018-06-30] MEDS: ALBUTEROL SO4 2.5/IPRATROPIUM 0.5 INH SOL 3 ML VIAL.NEB. NEB SCH ×4 (07:35→20:33)
[2018-06-30 08:03] LABS: BASO % 0.2 % (0-2.0); EOS % 1.1 % (0-4.5); HEMATOCRIT 41.6 % (32.4-45.2); LYMPH % 15.6 % (8-40); MCH 31.8 pg (25.7-33.7); MCHC 33.8 g/dl (32.0-36.0); MEAN CELL VOLUME 94.1 fl (80-96); MEAN PLT VOLUME 7.7 fl (7.5-11.1); MONO % 16.2 % (3.8-10.2); NEUT % 66.9 % (42.8-82.8); PLATELET COUNT 261 K/MM3 (134-434); RBC 4.42 M/mm3 (3.60-5.2); RDW 14.7 % (11.6-15.6); WHITE BLOOD COUNT 9.7 K/mm3 (4.0-10.0)
--- NOTE | 2018-06-30 08:26 | PN ---
Teaching Attending Note Name of Resident: Sherri Acuna ATTENDING PHYSICIAN STATEMENT I saw and evaluated the patient. I reviewed the resident's note and discussed the case with the resident. I agree with the resident's findings and plan as documented. 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 Active Medications Albuterol Sulfate (Ventolin 0.083% Nebulizer Soln -) 1 amp NEB Q4H PRN PRN Reason: SHORT OF BREATH/WHEEZING Albuterol/Ipratropium (Duoneb -) 1 amp NEB RQID [facility] Last Admin: 06/29/18 20:40 Dose: 1 amp Amino Acids (Prosource No Carb Liquid Pkt) 30 ml GT DAILY [facility] Last Admin: 06/29/18 09:49 Dose: 30 ml Amlodipine Besylate (Norvasc -) 2.5 mg GT DAILY [facility] Last Admin: 06/29/18 09:51 Dose: 2.5 mg Arformoterol Tartrate (Brovana (Restricted To Pulmonology/Resp) -) 1 amp NEB RBID [facility] Last Admin: 06/29/18 20:40 Dose: 1 amp Ascorbic Acid (Vitamin C -) 500 mg GT BID [facility] Last Admin: 06/29/18 23:01 Dose: 500 mg Atorvastatin Calcium (Lipitor -) 20 mg PO HS [facility] Last Admin: 06/29/18 23:02 Dose: 20 mg Budesonide (Pulmicort 0.5 Mg Nebulizer -) 1 amp NEB RBID [facility] Last Admin: 06/29/18 20:41 Dose: 1 amp Calcium Carbonate/Cholecalciferol (Os-Jamar 500+D -) 2 tab GT HS [facility] Last Admin: 06/29/18 23:01 Dose: 2 tab Enoxaparin Sodium (Lovenox -) 40 mg SQ DAILY [facility] Last Admin: 06/29/18 09:51 Dose: 40 mg Lactated Ringer's (Lactated Ringers Solution) 1,000 mls @ 42 mls/hr IV ASDIR [facility] Last Admin: 06/29/18 17:38 Dose: Not Given Piperacillin Sod/Tazobactam (Sod 3.375 gm/ Dextrose) 50 mls @ 100 mls/hr IVPB Q8H-IV [facility]; Protocol Last Admin: 06/30/18 01:19 Dose: 100 mls/hr Lactobacillus Acidophilus (Bacid -) 1 tab GT BID [facility] Last Admin: 06/29/18 23:01 Dose: 1 tab Levetiracetam (Keppra Oral Solution -) 1,500 mg GT BID [facility] Last Admin: 06/29/18 22:47 Dose: 1,500 mg Metoclopramide HCl (Reglan Oral Solution -) 5 mg GT QID [facility] Last Admin: 06/29/18 22:48 Dose: 5 mg Metoprolol Tartrate (Lopressor -) 25 mg GT BID [facility] Last Admin: 06/29/18 23:02 Dose: 25 mg Metoprolol Tartrate (Lopressor Injection -) 5 mg IVPB Q4H PRN PRN Reason: HYPERTENSION Multi-Ingredient Ointment (Zinc Oxide) 1 applic TP TID [facility] Last Admin: 06/30/18 06:00 Dose: 1 applic Non-Formulary Medication (Olopatadine Hcl [Pataday]) 2.5 ml OU DAILY [facility] Pantoprazole Sodium (Protonix -) 40 mg PO DAILY [facility] Last Admin: 06/29/18 09:51 Dose: 40 mg Phenobarbital (Phenobarbital -) 30 mg GT BID [facility] Last Admin: 06/29/18 23:01 Dose: 30 mg Prednisone (Deltasone -) 40 mg PO DAILY [facility] Last Admin: 06/29/18 09:50 Dose: 40 mg Ranitidine HCl (Zantac Oral Solution -) 150 mg GT BID [facility] Last Admin: 06/29/18 23:25 Dose: 150 mg Silver Sulfadiazine (Silvadene -) 1 applic TP DAILY [facility] Last Admin: 06/29/18 10:03 Dose: 1 applic Topiramate (Topamax -) 25 mg PO DAILY [facility] Last Admin: 06/29/18 09:51 Dose: 25 mg Topiramate (Topamax -) 200 mg GT BID [facility] Last Admin: 06/29/18 22:49 Dose: 200 mg Valproate Sodium (Depakene -) 750 mg GT BID [facility] Last Admin: 06/29/18 22:49 Dose: 750 mg ASSESSMENT AND PLAN:67 yrs old F mental retardation from [place] present with respiratory distress with Hypoxic respiratory failutre due to Pneumonia, now improving TwBC trended normal , patient PEG tube is dislodged, Problem List - Problems (1) Acute on chronic respiratory failure with hypoxia and hypercapnia Assessment/Plan: Due to pneumonia, improved will switch to PO augmentin once PEG in the place, Code(s): J96.21 - ACUTE AND CHRONIC RESPIRATORY FAILURE WITH HYPOXIA; J96.22 - ACUTE AND CHRONIC RESPIRATORY FAILURE WITH HYPERCAPNIA (2) Anoxic brain damage Assessment/Plan: No active issue Code(s): G93.1 - ANOXIC BRAIN DAMAGE, NOT ELSEWHERE CLASSIFIED (3) Feeding by G-tube Assessment/Plan: displaced, stoma secured with the foleys F/U GI for reinsertion. Code(s): Z93.1 - GASTROSTOMY STATUS (4) Seizure disorder Assessment/Plan: cont Home meds Code(s): G40.909 - EPILEPSY, UNSP, NOT INTRACTABLE, WITHOUT STATUS EPILEPTICUS (5) Functional quadriplegia Assessment/Plan: chronic Code(s): R53.2 - FUNCTIONAL QUADRIPLEGIA (6) HTN (hypertension) Assessment/Plan: Well controlled cont current meds via g tube Code(s): I10 - ESSENTIAL (PRIMARY) HYPERTENSION (7) Aspiration pneumonia Assessment/Plan: aspiration precautions, cont total 7 days of abx. Code(s): J69.0 - PNEUMONITIS DUE TO INHALATION OF FOOD AND VOMIT
[2018-06-30 08:27] LABS: ANION GAP 7 MMOL/L (8-16); BLOOD UREA NITROGEN 6 mg/dL (7-18); CALCIUM 8.6 mg/dL (8.5-10.1); CHLORIDE 97 mmol/L (98-107); CO2 41 mmol/L (21-32); CREATININE 0.2 mg/dL (0.55-1.3); GLUCOSE,RANDOM 67 mg/dL (74-106); SODIUM 144 mmol/L (136-145)
[2018-06-30 08:39] LABS: POTASSIUM 2.7 mmol/L (3.5-5.1)
[2018-06-30] MEDS: LACTATED RINGERS SOLUTION 1,000 ML IV SCH (09:07)
[2018-06-30] MEDS ORDERED: PT OWN MED DRAWER 7, Y5N ONE ×2 (09:13→21:03)
[2018-06-30] MEDS: KCL 10 MEQ IVPB 10 MEQ/100 ML INFUS.BAG IVPB SCH ×3 (09:19→13:31)
[2018-06-30] MEDS: ENOXAPARIN NA (PORCINE) 40 MG/0.4 ML DISP.SYRIN SQ SCH (09:20)
[2018-06-30] MEDS: AMINO ACIDS/PROTEIN HYDROLYS 30 ML LIQUID.PKT GT SCH (09:20)
[2018-06-30] MEDS: PANTOPRAZOLE 40 MG TABLET (FP) PO SCH (09:20)
[2018-06-30] MEDS: TOPIRAMATE 25 MG TABLET (FP) PO SCH (09:21)
[2018-06-30] MEDS: amLODIPine BESYLATE 2.5 MG TABLET (FP) GT SCH (09:21)
[2018-06-30] MEDS: PHENobarbital 30 MG TABLET GT SCH ×2 (09:21→23:19)
[2018-06-30] MEDS: METOPROLOL TARTRATE 25 MG TABLET (FP) GT SCH ×2 (09:21→23:19)
[2018-06-30] MEDS: ASCORBIC ACID 500 MG TABLET (FP) GT SCH ×2 (09:21→23:20)
[2018-06-30] MEDS: predniSONE 20 MG TABLET (UD) PO SCH (09:21)
[2018-06-30] MEDS: VALPROATE SODIUM 250 MG/5 ML UNIT DOSE CUP GT SCH ×2 (09:22→23:19)
[2018-06-30] MEDS: LACTOBACILLUS ACIDOPHILUS 1 TABLET GT SCH ×2 (09:22→23:21)
[2018-06-30] MEDS: TOPIRAMATE 200 MG TABLET (FP) GT SCH ×2 (09:22→23:20)
[2018-06-30] MEDS: levETIRAcetam 500 MG/5 ML ORAL SOLUTION (UNIT-DOSE CUPS) GT SCH ×2 (09:23→23:19)
[2018-06-30] MEDS: METOCLOPRAMIDE HCL 5 MG/5 ML UNIT DOSE CUP GT SCH ×4 (09:23→23:20)
[2018-06-30] MEDS: RANITIDINE HCL 150 MG/10 ML UNIT-DOSE GT SCH ×2 (09:24→23:20)
[2018-06-30] MEDS: SILVER SULFADIAZINE 1% TOP CREAM 50 GM JAR TP SCH (09:24)
[2018-06-30] MEDS ORDERED: POTASSIUM CHLORIDE ORAL LIQUID 20 MEQ/15 ML PO ONE (10:10)
--- NOTE | 2018-06-30 12:11 | PN ---
Progress Note (short form) - Note Progress Note: Mildly tachypneic on 4 L NC O2 but in NAD. Afebrile. No acute events overnight. Intake & Output 06/27/18 06/28/18 06/29/18 06/30/18 23:59 23:59 23:59 23:59 Intake Total 1282 1053 612 Output Total 100 500 600 100 Balance 1182 553 12 -100 Weight 100 lb Last Vital Signs Temp Pulse Resp BP Pulse Ox 97.8 F 95 H 18 132/70 98 06/30/18 07:50 06/30/18 07:50 06/30/18 07:50 06/30/18 07:50 06/30/18 09:00 Active Medications Albuterol Sulfate (Ventolin 0.083% Nebulizer Soln -) 1 amp NEB Q4H PRN PRN Reason: SHORT OF BREATH/WHEEZING Albuterol/Ipratropium (Duoneb -) 1 amp NEB RQID [facility] Last Admin: 06/30/18 11:23 Dose: 1 amp Amino Acids (Prosource No Carb Liquid Pkt) 30 ml GT DAILY [facility] Last Admin: 06/30/18 09:20 Dose: 30 ml Amlodipine Besylate (Norvasc -) 2.5 mg GT DAILY [facility] Last Admin: 06/30/18 09:21 Dose: 2.5 mg Arformoterol Tartrate (Brovana (Restricted To Pulmonology/Resp) -) 1 amp NEB RBID [facility] Last Admin: 06/30/18 07:35 Dose: 1 amp Ascorbic Acid (Vitamin C -) 500 mg GT BID [facility] Last Admin: 06/30/18 09:21 Dose: 500 mg Atorvastatin Calcium (Lipitor -) 20 mg PO HS [facility] Last Admin: 06/29/18 23:02 Dose: 20 mg Budesonide (Pulmicort 0.5 Mg Nebulizer -) 1 amp NEB RBID [facility] Last Admin: 06/30/18 07:35 Dose: 1 amp Calcium Carbonate/Cholecalciferol (Os-Jamar 500+D -) 2 tab GT HS [facility] Last Admin: 06/29/18 23:01 Dose: 2 tab Enoxaparin Sodium (Lovenox -) 40 mg SQ DAILY [facility] Last Admin: 06/30/18 09:20 Dose: 40 mg Lactated Ringer's (Lactated Ringers Solution) 1,000 mls @ 42 mls/hr IV ASDIR [facility] Last Admin: 06/30/18 09:07 Dose: 42 mls/hr Piperacillin Sod/Tazobactam (Sod 3.375 gm/ Dextrose) 50 mls @ 100 mls/hr IVPB Q8H-IV [facility]; Protocol Last Admin: 06/30/18 09:24 Dose: 100 mls/hr Lactobacillus Acidophilus (Bacid -) 1 tab GT BID [facility] Last Admin: 06/30/18 09:22 Dose: 1 tab Levetiracetam (Keppra Oral Solution -) 1,500 mg GT BID [facility] Last Admin: 06/30/18 09:23 Dose: 1,500 mg Metoclopramide HCl (Reglan Oral Solution -) 5 mg GT QID [facility] Last Admin: 06/30/18 09:23 Dose: 5 mg Metoprolol Tartrate (Lopressor -) 25 mg GT BID [facility] Last Admin: 06/30/18 09:21 Dose: 25 mg Metoprolol Tartrate (Lopressor Injection -) 5 mg IVPB Q4H PRN PRN Reason: HYPERTENSION Multi-Ingredient Ointment (Zinc Oxide) 1 applic TP TID [facility] Last Admin: 06/30/18 06:00 Dose: 1 applic Non-Formulary Medication (Olopatadine Hcl [Pataday]) 2.5 ml OU DAILY [facility] Pantoprazole Sodium (Protonix -) 40 mg PO DAILY [facility] Last Admin: 06/30/18 09:20 Dose: 40 mg Phenobarbital (Phenobarbital -) 30 mg GT BID [facility] Last Admin: 06/30/18 09:21 Dose: 30 mg Prednisone (Deltasone -) 40 mg PO DAILY [facility] Last Admin: 06/30/18 09:21 Dose: 40 mg Ranitidine HCl (Zantac Oral Solution -) 150 mg GT BID [facility] Last Admin: 06/30/18 09:24 Dose: 150 mg Silver Sulfadiazine (Silvadene -) 1 applic TP DAILY [facility] Last Admin: 06/30/18 09:24 Dose: 1 applic Topiramate (Topamax -) 25 mg PO DAILY [facility] Last Admin: 06/30/18 09:21 Dose: 25 mg Topiramate (Topamax -) 200 mg GT BID [facility] Last Admin: 06/30/18 09:22 Dose: 200 mg Valproate Sodium (Depakene -) 750 mg GT BID [facility] Last Admin: 06/30/18 09:22 Dose: 750 mg Constitutional: Yes: NAD, mildly tachypneic at rest Eyes: Yes: Conjunctiva Clear, EOM Intact HENT: Yes: Atraumatic, Normocephalic Neck: Yes: Supple, Trachea Midline Cardiovascular: Yes: Regular Rate and Rhythm Respiratory: Yes: Diminished at the bases, few scattered rhonchi ...Clubbing: No Gastrointestinal: Yes: Normal Bowel Sounds, Soft. No: Tenderness Edema: No Neurological: Yes: Other (poorly responsive) Labs: Laboratory Results - last 24 hr 06/30/18 06/30/18 06:30 06:30 WBC 9.7 RBC 4.42 Hgb 14.0 Hct 41.6 D MCV 94.1 MCH 31.8 MCHC 33.8 RDW 14.7 Plt Count 261 MPV 7.7 Absolute Neuts (auto) 6.4 Neutrophils % 66.9 D Lymphocytes % 15.6 D Monocytes % 16.2 H D Eosinophils % 1.1 D Basophils % 0.2 Nucleated RBC % 0 Sodium 144 Potassium 2.7 L* Chloride 97 L Carbon Dioxide 41 H Anion Gap 7 L BUN 6 L Creatinine 0.2 L Creat Clearance w eGFR 356.48 Random Glucose 67 L Calcium 8.6 Problem List - Problems (1) Acute on chronic respiratory failure with hypoxia and hypercapnia Code(s): J96.21 - ACUTE AND CHRONIC RESPIRATORY FAILURE WITH HYPOXIA; J96.22 - ACUTE AND CHRONIC RESPIRATORY FAILURE WITH HYPERCAPNIA (2) COPD exacerbation Code(s): J44.1 - CHRONIC OBSTRUCTIVE PULMONARY DISEASE W (ACUTE) EXACERBATION (3) Anoxic brain damage Code(s): G93.1 - ANOXIC BRAIN DAMAGE, NOT ELSEWHERE CLASSIFIED (4) Functional quadriplegia Code(s): R53.2 - FUNCTIONAL QUADRIPLEGIA Assessment/Plan Acute on Chronic Hypoxic and Hypercapneic Respiratory Failure Acute COPD Exacerbation Atelectasis vs Pneumonia Anoxic Brain Injury HTN Functional Quadriplegia Suspect recurrent microaspiration - NC O2 as tolerated - NIPPV support as needed - Prednisone 40mg daily - inhaled bronchodilators - aspiration precautions - ABX per ID - DVT prophylaxis - DNR Dr Bella
--- NOTE | 2018-06-30 14:04 | PN ---
Physical Exam: SUBJECTIVE: Patient seen and examined. Comfortable on 1L NC. Sleeping. Arousable to sternal rub. No events overnight. OBJECTIVE: Vital Signs Period Temp Pulse Resp BP Sys/Restrepo Pulse Ox Last 24 Hr 97.6 F-99.9 F 68-118 18-20 128-160/60-98 96-98 GENERAL: The patient is asleep, in no acute distress. HEAD: Microcephaly, no signs of trauma. EYES: PERRL ENT: Moist mucous membranes NECK: No JVD LUNGS: Diminished breath sounds at the bases, no wheezes, no crackles HEART: Tachycardic, S1, S2 without murmur ABDOMEN: Soft, nondistended, + bowel sounds, GTube dislodged. EXTREMITIES: All extremities contracted, 1+ right pedal edema NEUROLOGICAL: Awake Laboratory Results - last 24 hr 06/30/18 06/30/18 06:30 06:30 WBC 9.7 RBC 4.42 Hgb 14.0 Hct 41.6 D MCV 94.1 MCH 31.8 MCHC 33.8 RDW 14.7 Plt Count 261 MPV 7.7 Absolute Neuts (auto) 6.4 Neutrophils % 66.9 D Lymphocytes % 15.6 D Monocytes % 16.2 H D Eosinophils % 1.1 D Basophils % 0.2 Nucleated RBC % 0 Sodium 144 Potassium 2.7 L* Chloride 97 L Carbon Dioxide 41 H Anion Gap 7 L BUN 6 L Creatinine 0.2 L Creat Clearance w eGFR 356.48 Random Glucose 67 L Calcium 8.6 Active Medications Generic Name Dose Route Start Last Admin Trade Name Freq PRN Reason Stop Dose Admin Albuterol Sulfate 1 amp 06/26/18 16:25 Ventolin 0.083% Nebulizer Soln - NEB Q4H PRN SHORT OF BREATH/WHEEZING Albuterol/Ipratropium 1 amp 06/26/18 20:00 06/30/18 11:23 Duoneb - NEB 1 amp RQID [facility] Administration Amino Acids 30 ml 06/27/18 10:00 06/30/18 09:20 Prosource No Carb Liquid Pkt GT 30 ml DAILY [facility] Administration Amlodipine Besylate 2.5 mg 06/27/18 10:00 06/30/18 09:21 Norvasc - GT 2.5 mg DAILY [facility] Administration Arformoterol Tartrate 1 amp 06/26/18 20:00 06/30/18 07:35 Brovana (Restricted To Pulmonology/Resp) - NEB 1 amp RBID [facility] Administration Ascorbic Acid 500 mg 06/26/18 22:00 06/30/18 09:21 Vitamin C - GT 500 mg BID [facility] Administration Atorvastatin Calcium 20 mg 06/26/18 22:00 06/29/18 23:02 Lipitor - PO 20 mg HS [facility] Administration Budesonide 1 amp 06/26/18 20:00 06/30/18 07:35 Pulmicort 0.5 Mg Nebulizer - NEB 1 amp RBID [facility] Administration Calcium Carbonate/Cholecalciferol 2 tab 06/26/18 22:00 06/29/18 23:01 Os-Jamar 500+D - GT 2 tab HS [facility] Administration Enoxaparin Sodium 40 mg 06/26/18 15:00 06/30/18 09:20 Lovenox - SQ 40 mg DAILY [facility] Administration Lactated Ringer's 1,000 mls @ 42 mls/hr 06/26/18 14:45 06/30/18 09:07 Lactated Ringers Solution IV 42 mls/hr ASDIR [facility] Administration Piperacillin Sod/Tazobactam 50 mls @ 100 mls/hr 06/30/18 18:00 Sod 3.375 gm/ Dextrose IVPB Q8H-IV [facility] Protocol Lactobacillus Acidophilus 1 tab 06/26/18 22:00 06/30/18 09:22 Bacid - GT 1 tab BID [facility] Administration Levetiracetam 1,500 mg 06/26/18 22:00 06/30/18 09:23 Keppra Oral Solution - GT 1,500 mg BID [facility] Administration Metoclopramide HCl 5 mg 06/26/18 18:00 06/30/18 13:29 Reglan Oral Solution - GT Not Given QID [facility] Metoprolol Tartrate 25 mg 06/26/18 22:00 06/30/18 09:21 Lopressor - GT 25 mg BID [facility] Administration Metoprolol Tartrate 5 mg 06/27/18 08:14 Lopressor Injection - IVPB Q4H PRN HYPERTENSION Multi-Ingredient Ointment 1 applic 06/26/18 22:00 06/30/18 13:29 Zinc Oxide TP 1 applic TID [facility] Administration Non-Formulary Medication 2.5 ml 06/27/18 10:00 Olopatadine Hcl [Pataday] OU DAILY [facility] Pantoprazole Sodium 40 mg 06/26/18 15:00 06/30/18 09:20 Protonix - PO 40 mg DAILY [facility] Administration Phenobarbital 30 mg 06/26/18 22:00 06/30/18 09:21 Phenobarbital - GT 30 mg BID [facility] Administration Prednisone 40 mg 06/27/18 18:00 06/30/18 09:21 Deltasone - PO 40 mg DAILY [facility] Administration Ranitidine HCl 150 mg 06/26/18 22:00 06/30/18 09:24 Zantac Oral Solution - GT 150 mg BID [facility] Administration Silver Sulfadiazine 1 applic 06/27/18 10:00 06/30/18 09:24 Silvadene - TP 1 applic DAILY [facility] Administration Topiramate 25 mg 06/27/18 10:00 06/30/18 09:21 Topamax - PO 25 mg DAILY [facility] Administration Topiramate 200 mg 06/26/18 22:00 06/30/18 09:22 Topamax - GT 200 mg BID [facility] Administration Valproate Sodium 750 mg 06/26/18 22:00 06/30/18 09:22 Depakene - GT 750 mg BID [facility] Administration ASSESSMENT/PLAN: 67 y/o non-verbal Female with PMHx of anoxic brain injury, COPD (on 4L at home) , seizures, who was recently discharged from [facility] for Sepsis due to Pseudomonas UTI, presents from [facility] with Respiratory Distress. #Acute Hypercapneic Respiratory Failure -Likely from micro aspirations -Continue Bilevel PRN (17/07//40%) -Continue Piperacillin/Tazobactam 3.375 Q6H (ABx course started on 06/26) -Will switch to PO Augmentin when Gtube replaced. -Prednisone 40mg PO Daily -Albuterol KELL Q6H PRN -Supplemental O2 to maintain SpO2 88-92% -ID on board -Pulmonary (Dr. Gann) consulted -Cultures negative -Keep HOB elevated -Aspiration precautions -Will likely need Bilevel on discharge at [facility] #Dislodged Gtube -will need replacement -hold tube feeds. -GI consulted #Hypertension -Metoprolol Tartrate 50mg GT BID, Amlodipine to 5mg GT Daily #HLD -Atorvastatin 20mg GT HS #GERD -Metoclopramide, Pantoprazole #Seizures -Levetiracetam, Valproate, Topiramate, Phenobarbital #FEN -LR @ 42 -Monitor lytes -cont. tube feeds when gtube replaced #PPx -DVT: Lovenox -GI: PPI Code status: DNR Dispo: Likely dc in AM. Will need acceptance back to [place] when ready for DC. Call Dr. Vasquez: [phone] Visit type - Emergency Visit Emergency Visit: Yes ED Registration Date: 06/26/18 Care time: The patient presented to the Emergency Department on the above date and was hospitalized for further evaluation of their emergent condition. - New Patient This patient is new to me today: Yes Date on this admission: 06/30/18 - Critical Care Critical Care patient: No
--- NOTE | 2018-06-30 16:18 | PN ---
Progress Note, Physician History of Present Illness: Pt remains afebrile, without current respiratory distress. peg dislodged. - Current Medication List Current Medications: Active Medications Albuterol Sulfate (Ventolin 0.083% Nebulizer Soln -) 1 amp NEB Q4H PRN PRN Reason: SHORT OF BREATH/WHEEZING Albuterol/Ipratropium (Duoneb -) 1 amp NEB RQID [facility] Last Admin: 06/30/18 15:48 Dose: 1 amp Amino Acids (Prosource No Carb Liquid Pkt) 30 ml GT DAILY [facility] Last Admin: 06/30/18 09:20 Dose: 30 ml Amlodipine Besylate (Norvasc -) 2.5 mg GT DAILY [facility] Last Admin: 06/30/18 09:21 Dose: 2.5 mg Arformoterol Tartrate (Brovana (Restricted To Pulmonology/Resp) -) 1 amp NEB RBID [facility] Last Admin: 06/30/18 07:35 Dose: 1 amp Ascorbic Acid (Vitamin C -) 500 mg GT BID [facility] Last Admin: 06/30/18 09:21 Dose: 500 mg Atorvastatin Calcium (Lipitor -) 20 mg PO HS [facility] Last Admin: 06/29/18 23:02 Dose: 20 mg Budesonide (Pulmicort 0.5 Mg Nebulizer -) 1 amp NEB RBID [facility] Last Admin: 06/30/18 07:35 Dose: 1 amp Calcium Carbonate/Cholecalciferol (Os-Jamar 500+D -) 2 tab GT HS [facility] Last Admin: 06/29/18 23:01 Dose: 2 tab Enoxaparin Sodium (Lovenox -) 40 mg SQ DAILY [facility] Last Admin: 06/30/18 09:20 Dose: 40 mg Lactated Ringer's (Lactated Ringers Solution) 1,000 mls @ 42 mls/hr IV ASDIR [facility] Last Admin: 06/30/18 09:07 Dose: 42 mls/hr Piperacillin Sod/Tazobactam (Sod 3.375 gm/ Dextrose) 50 mls @ 100 mls/hr IVPB Q8H-IV [facility]; Protocol Lactobacillus Acidophilus (Bacid -) 1 tab GT BID [facility] Last Admin: 06/30/18 09:22 Dose: 1 tab Levetiracetam (Keppra Oral Solution -) 1,500 mg GT BID [facility] Last Admin: 06/30/18 09:23 Dose: 1,500 mg Metoclopramide HCl (Reglan Oral Solution -) 5 mg GT QID [facility] Last Admin: 06/30/18 13:29 Dose: Not Given Metoprolol Tartrate (Lopressor -) 25 mg GT BID [facility] Last Admin: 06/30/18 09:21 Dose: 25 mg Metoprolol Tartrate (Lopressor Injection -) 5 mg IVPB Q4H PRN PRN Reason: HYPERTENSION Multi-Ingredient Ointment (Zinc Oxide) 1 applic TP TID [facility] Last Admin: 06/30/18 13:29 Dose: 1 applic Non-Formulary Medication (Olopatadine Hcl [Pataday]) 2.5 ml OU DAILY [facility] Pantoprazole Sodium (Protonix -) 40 mg PO DAILY [facility] Last Admin: 06/30/18 09:20 Dose: 40 mg Phenobarbital (Phenobarbital -) 30 mg GT BID [facility] Last Admin: 06/30/18 09:21 Dose: 30 mg Prednisone (Deltasone -) 40 mg PO DAILY [facility] Last Admin: 06/30/18 09:21 Dose: 40 mg Ranitidine HCl (Zantac Oral Solution -) 150 mg GT BID [facility] Last Admin: 06/30/18 09:24 Dose: 150 mg Silver Sulfadiazine (Silvadene -) 1 applic TP DAILY [facility] Last Admin: 06/30/18 09:24 Dose: 1 applic Topiramate (Topamax -) 25 mg PO DAILY [facility] Last Admin: 06/30/18 09:21 Dose: 25 mg Topiramate (Topamax -) 200 mg GT BID [facility] Last Admin: 06/30/18 09:22 Dose: 200 mg Valproate Sodium (Depakene -) 750 mg GT BID [facility] Last Admin: 06/30/18 09:22 Dose: 750 mg - Objective Vital Signs: Vital Signs Temperature 97.8 F 06/30/18 07:50 Pulse Rate 95 H 06/30/18 07:50 Respiratory Rate 18 06/30/18 07:50 Blood Pressure 132/70 06/30/18 07:50 O2 Sat by Pulse Oximetry (%) 98 06/30/18 15:47 Constitutional: Yes: No Distress Cardiovascular: Yes: Regular Rate and Rhythm Respiratory: Yes: Other (poor inspiratory effort, no obvious rhonchi/wheeze) Gastrointestinal: Yes: Normal Bowel Sounds, Soft Extremities: Yes: Other (contracted) Labs: CBC, BMP 06/30/18 06:30 06/30/18 06:30 Problem List - Problems (1) Acute on chronic respiratory failure with hypoxia and hypercapnia Code(s): J96.21 - ACUTE AND CHRONIC RESPIRATORY FAILURE WITH HYPOXIA; J96.22 - ACUTE AND CHRONIC RESPIRATORY FAILURE WITH HYPERCAPNIA (2) COPD exacerbation Code(s): J44.1 - CHRONIC OBSTRUCTIVE PULMONARY DISEASE W (ACUTE) EXACERBATION (3) Anoxic brain damage Code(s): G93.1 - ANOXIC BRAIN DAMAGE, NOT ELSEWHERE CLASSIFIED (4) Feeding by G-tube Code(s): Z93.1 - GASTROSTOMY STATUS (5) Functional quadriplegia Code(s): R53.2 - FUNCTIONAL QUADRIPLEGIA (6) HLD (hyperlipidemia) Code(s): E78.5 - HYPERLIPIDEMIA, UNSPECIFIED (7) HTN (hypertension) Code(s): I10 - ESSENTIAL (PRIMARY) HYPERTENSION (8) Seizure disorder Code(s): G40.909 - EPILEPSY, UNSP, NOT INTRACTABLE, WITHOUT STATUS EPILEPTICUS Assessment/Plan Acute on Chronic hypoxic respiratory failure HCAP vs. Aspiration COPD Anoxic brain injury Functional quadriplegia Seizure d.o. -- continue antibiotics, once has functioning GT plan is to switch to augmentin -- leukocytosis resolved, afebrile -- aspiration precautions No current distress
[2018-06-30 16:49] LABS: ANION GAP 5 MMOL/L (8-16); BLOOD UREA NITROGEN 8 mg/dL (7-18); CALCIUM 8.4 mg/dL (8.5-10.1); CHLORIDE 101 mmol/L (98-107); CO2 33 mmol/L (21-32); CREATININE < 0.2 mg/dL (0.55-1.3); GLUCOSE,RANDOM 103 mg/dL (74-106); POTASSIUM 4.4 mmol/L (3.5-5.1); SODIUM 139 mmol/L (136-145)
[2018-06-30] MEDS ORDERED: AMOX TR/POT CLAV 875MG/125MG TABLETS (FP) PO SCH (17:30)
--- NOTE | 2018-06-30 19:55 | PN ---
Progress Note (short form) - Note Progress Note: GI consult dictated peg tube replaced f/u gastrograffin tube check axr to confirm placement of the peg tube. Do not use peg tube for now.
--- NOTE | 2018-06-30 20:18 | CONS ---
DATE OF CONSULTATION: DATE OF DICTATION: 06/30/2018 The patient is a 67-year-old female with a history of anoxic brain injury, COPD, seizures, recent admission to the hospital for sepsis and Pseudomonas urinary tract infection, who was transferred to the hospital from the [facility] with respiratory distress. She was transferred on the 26 of June. Today, her PEG tube became dislodged. The patient is a poor historian and therefore HPI is limited and obtained from the chart. Past medical and surgical history as listed in the HPI. ALLERGIES: No known drug allergies. SOCIAL HISTORY AND FAMILY HISTORY: Unable to obtain. Home medications include alendronate, amlodipine, Brovana, vitamin C, budesonide, calcium carbonate, albuterol, metoclopramide, omeprazole, phenobarbital, topiramate, and simvastatin. REVIEW OF SYSTEMS: Unable to obtain. PHYSICAL EXAMINATION: Vital Signs: Temperature 97, pulse 95, blood pressure 130/70, pulse oximetry 98% on room air. General: No acute distress. HEENT: Anicteric sclerae. Cardiovascular: S1, S2, regular rate and rhythm. Lungs: Bilaterally clear to auscultation. Abdomen: Soft and nontender. Genitourinary: There was a Bella catheter placed at the PEG tube site that appears to be clean. Extremities: No edema. LABORATORY DATA: White blood cell count 9.7, hemoglobin 14, hematocrit 41, MCV 94, platelet count 261, INR not done. Sodium 139, potassium 4.4, BUN 8, creatinine 0.2, glucose 103, total bilirubin 0.2, AST 16, ALT 26, alkaline phosphatase 344. She had an abdominal x-ray that is not resulted at this time. IMPRESSION: Dislodged PEG tube status post replacement by me at the bedside with a 20-Yi, external bumper placed at 2 cm and clean dressing was placed at the bedside. RECOMMENDATION: Do not use PEG tube for now. Abdominal x-ray with Gastrografin. G-tube check will need to be done prior to use of the percutaneous gastrostomy tube. percutaneous endoscopic gastrostomy tube. This was explained to the covering physician as well as nurse at the bedside. The patient will be followed by GI service. DO PEACE BOWERS/[id number]
[2018-06-30] MEDS: CALCIUM 500MG/VIT-D 200 UNITS COMBO TABLET (FP) GT SCH (23:19)
[2018-06-30] MEDS: ATORVASTATIN CA 20 MG TABLET (FP) PO SCH (23:19)
[2018-06-30] MEDS: MICONAZOLE NITRATE 28 GM TUBE TP SCH (23:21)
[2018-07-01] MEDS ORDERED: PIPERACILLIN/TAZOBACTAM 3.375 GM VIAL IVPB ONE ×2 (02:17→18:30)
[2018-07-01] MEDS ORDERED: DEXTROSE 5%-WATER - 50 ML IVPB ONE ×2 (02:17→18:30)
[2018-07-01] MEDS: PIPERACILLIN/TAZOB 3.375 GM 3.375 GM in DEXTROSE 5%-WATER - 50 ML IVPB SCH ×3 (02:49→18:36)
[2018-07-01] MEDS: ZINC OXIDE 20% TOPICAL OINTMENT 30 GM TUBE TP SCH ×3 (06:15→22:42)
[2018-07-01] MEDS: ARFORMOTEROL TARTRATE 15 MCG/2 ML VIAL NEB SCH ×2 (07:49→20:58)
[2018-07-01] MEDS: ALBUTEROL SO4 2.5/IPRATROPIUM 0.5 INH SOL 3 ML VIAL.NEB. NEB SCH ×3 (07:50→15:50)
[2018-07-01] MEDS: BUDESONIDE 0.5 MG/2 ML INH SUSP VIAL NEB SCH ×2 (07:51→20:58)
[2018-07-01 08:54] LABS: ANION GAP 8 MMOL/L (8-16); BLOOD UREA NITROGEN 11 mg/dL (7-18); CALCIUM 8.9 mg/dL (8.5-10.1); CHLORIDE 99 mmol/L (98-107); CO2 32 mmol/L (21-32); CREATININE 0.2 mg/dL (0.55-1.3); GLUCOSE,RANDOM 82 mg/dL (74-106); POTASSIUM 3.1 mmol/L (3.5-5.1); SODIUM 139 mmol/L (136-145)
[2018-07-01] MEDS: levETIRAcetam 500 MG/5 ML ORAL SOLUTION (UNIT-DOSE CUPS) GT SCH ×2 (11:04→22:42)
[2018-07-01] MEDS: amLODIPine BESYLATE 2.5 MG TABLET (FP) GT SCH (11:05)
[2018-07-01] MEDS: AMINO ACIDS/PROTEIN HYDROLYS 30 ML LIQUID.PKT GT SCH (11:05)
[2018-07-01] MEDS: PHENobarbital 30 MG TABLET GT SCH ×2 (11:05→22:41)
[2018-07-01] MEDS: PANTOPRAZOLE 40 MG TABLET (FP) PO SCH (11:05)
[2018-07-01] MEDS: METOCLOPRAMIDE HCL 5 MG/5 ML UNIT DOSE CUP GT SCH ×4 (11:06→22:40)
--- NOTE | 2018-07-01 11:23 | PN ---
Progress Note (short form) - Note Progress Note: Xray/G tube study revealing gastrostomy in position. Ok to resume use of PEG for feeds and medications. Please contact GI if any further questions/concerns.
[2018-07-01] MEDS: MICONAZOLE NITRATE 28 GM TUBE TP SCH (11:35)
[2018-07-01] MEDS: TOPIRAMATE 200 MG TABLET (FP) GT SCH ×2 (11:36→22:41)
[2018-07-01] MEDS: ENOXAPARIN NA (PORCINE) 40 MG/0.4 ML DISP.SYRIN SQ SCH (11:37)
--- NOTE | 2018-07-01 11:43 | PN ---
Progress Note, Physician History of Present Illness: continues to improve still fluctuating between bipap and nasal canula mental status better - Current Medication List Current Medications: Active Medications Albuterol Sulfate (Ventolin 0.083% Nebulizer Soln -) 1 amp NEB Q4H PRN PRN Reason: SHORT OF BREATH/WHEEZING Albuterol/Ipratropium (Duoneb -) 1 amp NEB RQID [facility] Last Admin: 07/01/18 11:35 Dose: 1 amp Amino Acids (Prosource No Carb Liquid Pkt) 30 ml GT DAILY [facility] Last Admin: 06/30/18 09:20 Dose: 30 ml Amlodipine Besylate (Norvasc -) 2.5 mg GT DAILY [facility] Last Admin: 06/30/18 09:21 Dose: 2.5 mg Arformoterol Tartrate (Brovana (Restricted To Pulmonology/Resp) -) 1 amp NEB RBID [facility] Last Admin: 07/01/18 07:49 Dose: 1 amp Ascorbic Acid (Vitamin C -) 500 mg GT BID [facility] Last Admin: 06/30/18 23:20 Dose: Not Given Atorvastatin Calcium (Lipitor -) 20 mg PO HS [facility] Last Admin: 06/30/18 23:19 Dose: Not Given Budesonide (Pulmicort 0.5 Mg Nebulizer -) 1 amp NEB RBID [facility] Last Admin: 07/01/18 07:51 Dose: 1 amp Calcium Carbonate/Cholecalciferol (Os-Jamar 500+D -) 2 tab GT HS [facility] Last Admin: 06/30/18 23:19 Dose: Not Given Enoxaparin Sodium (Lovenox -) 40 mg SQ DAILY [facility] Last Admin: 06/30/18 09:20 Dose: 40 mg Lactated Ringer's (Lactated Ringers Solution) 1,000 mls @ 42 mls/hr IV ASDIR [facility] Last Admin: 06/30/18 09:07 Dose: 42 mls/hr Piperacillin Sod/Tazobactam (Sod 3.375 gm/ Dextrose) 50 mls @ 100 mls/hr IVPB Q8H-IV [facility]; Protocol Last Admin: 07/01/18 02:49 Dose: 100 mls/hr Lactobacillus Acidophilus (Bacid -) 1 tab GT BID [facility] Last Admin: 06/30/18 23:21 Dose: Not Given Levetiracetam (Keppra Oral Solution -) 1,500 mg GT BID [facility] Last Admin: 06/30/18 23:19 Dose: Not Given Metoclopramide HCl (Reglan Oral Solution -) 5 mg GT QID [facility] Last Admin: 06/30/18 23:20 Dose: Not Given Metoprolol Tartrate (Lopressor -) 25 mg GT BID [facility] Last Admin: 06/30/18 23:19 Dose: Not Given Metoprolol Tartrate (Lopressor Injection -) 5 mg IVPB Q4H PRN PRN Reason: HYPERTENSION Miconazole Nitrate (Miconazole Nitrate) 1 applic TP DAILY [facility] Last Admin: 06/30/18 23:21 Dose: 1 applic Multi-Ingredient Ointment (Zinc Oxide) 1 applic TP TID [facility] Last Admin: 07/01/18 06:15 Dose: 1 applic Non-Formulary Medication (Olopatadine Hcl [Pataday]) 2.5 ml OU DAILY [facility] Pantoprazole Sodium (Protonix -) 40 mg PO DAILY [facility] Last Admin: 06/30/18 09:20 Dose: 40 mg Phenobarbital (Phenobarbital -) 30 mg GT BID [facility] Last Admin: 06/30/18 23:19 Dose: Not Given Prednisone (Deltasone -) 40 mg PO DAILY [facility] Last Admin: 06/30/18 09:21 Dose: 40 mg Ranitidine HCl (Zantac Oral Solution -) 150 mg GT BID [facility] Last Admin: 06/30/18 23:20 Dose: Not Given Silver Sulfadiazine (Silvadene -) 1 applic TP DAILY [facility] Last Admin: 06/30/18 09:24 Dose: 1 applic Topiramate (Topamax -) 25 mg PO DAILY [facility] Last Admin: 06/30/18 09:21 Dose: 25 mg Topiramate (Topamax -) 200 mg GT BID [facility] Last Admin: 06/30/18 23:20 Dose: Not Given Valproate Sodium (Depakene -) 750 mg GT BID [facility] Last Admin: 06/30/18 23:19 Dose: Not Given - Objective Vital Signs: Vital Signs Temperature 98.8 F 07/01/18 05:30 Pulse Rate 102 H 07/01/18 05:30 Respiratory Rate 18 06/30/18 22:00 Blood Pressure 153/83 07/01/18 05:30 O2 Sat by Pulse Oximetry (%) 98 07/01/18 07:48 Constitutional: Yes: No Distress, Calm Cardiovascular: Yes: Regular Rate and Rhythm Respiratory: Yes: Regular, On BiPap, On Nasal O2, Poor Air Entry Gastrointestinal: Yes: Normal Bowel Sounds, Soft, Other Musculoskeletal: Yes: WNL Extremities: Yes: Other (contracted) Neurological: Yes: Alert, Other Psychiatric: Yes: Other Labs: CBC, BMP 06/30/18 06:30 07/01/18 07:36 Assessment/Plan Problem List - Problems (1) Acute on chronic respiratory failure with hypoxia and hypercapnia Code(s): J96.21 - ACUTE AND CHRONIC RESPIRATORY FAILURE WITH HYPOXIA; J96.22 - ACUTE AND CHRONIC RESPIRATORY FAILURE WITH HYPERCAPNIA (2) COPD exacerbation Code(s): J44.1 - CHRONIC OBSTRUCTIVE PULMONARY DISEASE W (ACUTE) EXACERBATION (3) Anoxic brain damage Code(s): G93.1 - ANOXIC BRAIN DAMAGE, NOT ELSEWHERE CLASSIFIED (4) Functional quadriplegia Code(s): R53.2 - FUNCTIONAL QUADRIPLEGIA Assessment/Plan Acute on Chronic Hypoxic and Hypercapneic Respiratory Failure Acute COPD Exacerbation Atelectasis vs Pneumonia Anoxic Brain Injury HTN Functional Quadriplegia Suspect recurrent microaspiration plan contineu current mgmt resp support rest as per the team monitor
[2018-07-01] MEDS: LACTOBACILLUS ACIDOPHILUS 1 TABLET GT SCH ×2 (11:57→22:41)
[2018-07-01] MEDS: predniSONE 20 MG TABLET (UD) PO SCH (11:57)
[2018-07-01] MEDS: VALPROATE SODIUM 250 MG/5 ML UNIT DOSE CUP GT SCH ×2 (11:58→22:45)
[2018-07-01] MEDS: SILVER SULFADIAZINE 1% TOP CREAM 50 GM JAR TP SCH (12:35)
--- NOTE | 2018-07-01 12:55 | PN ---
Progress Note, Physician History of Present Illness: PULMONARY SLEEPING ,-RESP DISTRESS - Current Medication List Current Medications: Active Medications Albuterol Sulfate (Ventolin 0.083% Nebulizer Soln -) 1 amp NEB Q4H PRN PRN Reason: SHORT OF BREATH/WHEEZING Albuterol/Ipratropium (Duoneb -) 1 amp NEB RQID [facility] Last Admin: 07/01/18 11:35 Dose: 1 amp Amino Acids (Prosource No Carb Liquid Pkt) 30 ml GT DAILY [facility] Last Admin: 06/30/18 09:20 Dose: 30 ml Amlodipine Besylate (Norvasc -) 2.5 mg GT DAILY [facility] Last Admin: 06/30/18 09:21 Dose: 2.5 mg Arformoterol Tartrate (Brovana (Restricted To Pulmonology/Resp) -) 1 amp NEB RBID [facility] Last Admin: 07/01/18 07:49 Dose: 1 amp Ascorbic Acid (Vitamin C -) 500 mg GT BID [facility] Last Admin: 06/30/18 23:20 Dose: Not Given Atorvastatin Calcium (Lipitor -) 20 mg PO HS [facility] Last Admin: 06/30/18 23:19 Dose: Not Given Budesonide (Pulmicort 0.5 Mg Nebulizer -) 1 amp NEB RBID [facility] Last Admin: 07/01/18 07:51 Dose: 1 amp Calcium Carbonate/Cholecalciferol (Os-Jamar 500+D -) 2 tab GT HS [facility] Last Admin: 06/30/18 23:19 Dose: Not Given Enoxaparin Sodium (Lovenox -) 40 mg SQ DAILY [facility] Last Admin: 06/30/18 09:20 Dose: 40 mg Lactated Ringer's (Lactated Ringers Solution) 1,000 mls @ 42 mls/hr IV ASDIR [facility] Last Admin: 06/30/18 09:07 Dose: 42 mls/hr Piperacillin Sod/Tazobactam (Sod 3.375 gm/ Dextrose) 50 mls @ 100 mls/hr IVPB Q8H-IV [facility]; Protocol Last Admin: 07/01/18 02:49 Dose: 100 mls/hr Lactobacillus Acidophilus (Bacid -) 1 tab GT BID [facility] Last Admin: 06/30/18 23:21 Dose: Not Given Levetiracetam (Keppra Oral Solution -) 1,500 mg GT BID [facility] Last Admin: 06/30/18 23:19 Dose: Not Given Metoclopramide HCl (Reglan Oral Solution -) 5 mg GT QID [facility] Last Admin: 06/30/18 23:20 Dose: Not Given Metoprolol Tartrate (Lopressor -) 25 mg GT BID [facility] Last Admin: 06/30/18 23:19 Dose: Not Given Metoprolol Tartrate (Lopressor Injection -) 5 mg IVPB Q4H PRN PRN Reason: HYPERTENSION Miconazole Nitrate (Miconazole Nitrate) 1 applic TP DAILY [facility] Last Admin: 06/30/18 23:21 Dose: 1 applic Multi-Ingredient Ointment (Zinc Oxide) 1 applic TP TID [facility] Last Admin: 07/01/18 06:15 Dose: 1 applic Non-Formulary Medication (Olopatadine Hcl [Pataday]) 2.5 ml OU DAILY [facility] Pantoprazole Sodium (Protonix -) 40 mg PO DAILY [facility] Last Admin: 06/30/18 09:20 Dose: 40 mg Phenobarbital (Phenobarbital -) 30 mg GT BID [facility] Last Admin: 06/30/18 23:19 Dose: Not Given Prednisone (Deltasone -) 40 mg PO DAILY [facility] Last Admin: 06/30/18 09:21 Dose: 40 mg Ranitidine HCl (Zantac Oral Solution -) 150 mg GT BID [facility] Last Admin: 06/30/18 23:20 Dose: Not Given Silver Sulfadiazine (Silvadene -) 1 applic TP DAILY [facility] Last Admin: 06/30/18 09:24 Dose: 1 applic Topiramate (Topamax -) 25 mg PO DAILY [facility] Last Admin: 06/30/18 09:21 Dose: 25 mg Topiramate (Topamax -) 200 mg GT BID [facility] Last Admin: 06/30/18 23:20 Dose: Not Given Valproate Sodium (Depakene -) 750 mg GT BID [facility] Last Admin: 06/30/18 23:19 Dose: Not Given - Objective Vital Signs: Vital Signs Temperature 98.4 F 07/01/18 10:00 Pulse Rate 99 H 07/01/18 10:00 Respiratory Rate 07/01/18 09:00 Blood Pressure 144/88 07/01/18 10:00 O2 Sat by Pulse Oximetry (%) 98 07/01/18 09:00 Constitutional: Yes: Thin, Other (SLEEPING) Eyes: Yes: WNL HENT: Yes: WNL Neck: Yes: WNL Cardiovascular: Yes: Regular Rate and Rhythm, S1, S2 Respiratory: Yes: Diminished Gastrointestinal: Yes: Normal Bowel Sounds, Soft Extremities: Yes: Other (CONTRACTED) Edema: No Labs: 07/01/18 07:36 Assessment/Plan Problem List - Problems (1) Acute on chronic respiratory failure with hypoxia and hypercapnia Code(s): J96.21 - ACUTE AND CHRONIC RESPIRATORY FAILURE WITH HYPOXIA; J96.22 - ACUTE AND CHRONIC RESPIRATORY FAILURE WITH HYPERCAPNIA (2) COPD exacerbation Code(s): J44.1 - CHRONIC OBSTRUCTIVE PULMONARY DISEASE W (ACUTE) EXACERBATION (3) Anoxic brain damage Code(s): G93.1 - ANOXIC BRAIN DAMAGE, NOT ELSEWHERE CLASSIFIED (4) Functional quadriplegia Code(s): R53.2 - FUNCTIONAL QUADRIPLEGIA Assessment/Plan Acute on Chronic Hypoxic and Hypercapneic Respiratory Failure Acute COPD Exacerbation Atelectasis vs Pneumonia Anoxic Brain Injury HTN Functional Quadriplegia Suspect recurrent microaspiration - NC O2 as tolerated - NIPPV support as needed - Prednisone 40mg daily - inhaled bronchodilators - aspiration precautions - ABX per ID - DVT prophylaxis - DNR - f/u abg DR SUAREZ
[2018-07-01 14:52] LABS: ARTERIAL BLD GAS O2 SATURATION 96.3 % (95-98); ARTERIAL BLOOD GAS BASE EXCESS 7.8 meq/l (-2-2); ARTERIAL BLOOD GAS PCO2 48.9 mmHg (35-45); ARTERIAL BLOOD GAS PO2 85.3 mmHg (80-105); ARTERIAL BLOOD GAS pH 7.44 (7.35-7.45)
[2018-07-01 14:53] LABS: ALLENS TEST POSITIVE
--- NOTE | 2018-07-01 15:02 | PN ---
Physical Exam: SUBJECTIVE: Patient seen and examined at bedside. Remains comfortable. No acute distress. OBJECTIVE: Vital Signs Period Temp Pulse Resp BP Sys/Restrepo Pulse Ox Last 24 Hr 97.5 F-98.8 F 93-102 18-19 138-153/81-90 97-98 GENERAL: The patient is AAO X1-2, at baseline from anoxic encephalopathy HEAD: Normal with no signs of trauma. EYES: PERRL, extraocular movements intact, sclera anicteric, conjunctiva clear. No ptosis. ENT: Ears normal, nares patent, oropharynx clear without exudates, moist mucous membranes. NECK: Trachea midline, full range of motion, supple. LUNGS: Breath sounds equal, clear to auscultation bilaterally, no wheezes, no crackles, no accessory muscle use. HEART: Regular rate and rhythm, S1, S2 without murmur, rub or gallop. ABDOMEN: PEG replaced back in. EXTREMITIES: 2+ pulses, warm, well-perfused, no edema. But Contracted. NEUROLOGICAL: Chronically anoxic, quadriplegic. SKIN: Warm, dry, normal turgor, no rashes or lesions noted Laboratory Results - last 24 hr 06/30/18 07/01/18 16:00 07:36 Sodium 139 139 Potassium 4.4 3.1 L Chloride 101 99 Carbon Dioxide 33 H 32 Anion Gap 5 L 8 BUN 8 11 Creatinine < 0.2 L 0.2 L Creat Clearance w eGFR 356.50 356.48 Random Glucose 103 82 Calcium 8.4 L 8.9 Active Medications Generic Name Dose Route Start Last Admin Trade Name Freq PRN Reason Stop Dose Admin Albuterol Sulfate 1 amp 06/26/18 16:25 Ventolin 0.083% Nebulizer Soln - NEB Q4H PRN SHORT OF BREATH/WHEEZING Albuterol/Ipratropium 1 amp 06/26/18 20:00 07/01/18 11:35 Duoneb - NEB 1 amp RQID [facility] Administration Amino Acids 30 ml 06/27/18 10:00 06/30/18 09:20 Prosource No Carb Liquid Pkt GT 30 ml DAILY [facility] Administration Amlodipine Besylate 2.5 mg 06/27/18 10:00 06/30/18 09:21 Norvasc - GT 2.5 mg DAILY [facility] Administration Arformoterol Tartrate 1 amp 06/26/18 20:00 07/01/18 07:49 Brovana (Restricted To Pulmonology/Resp) - NEB 1 amp RBID [facility] Administration Ascorbic Acid 500 mg 06/26/18 22:00 06/30/18 23:20 Vitamin C - GT Not Given BID [facility] Atorvastatin Calcium 20 mg 06/26/18 22:00 06/30/18 23:19 Lipitor - PO Not Given HS [facility] Budesonide 1 amp 06/26/18 20:00 07/01/18 07:51 Pulmicort 0.5 Mg Nebulizer - NEB 1 amp RBID [facility] Administration Calcium Carbonate/Cholecalciferol 2 tab 06/26/18 22:00 06/30/18 23:19 Os-Jamar 500+D - GT Not Given HS [facility] Enoxaparin Sodium 40 mg 06/26/18 15:00 06/30/18 09:20 Lovenox - SQ 40 mg DAILY [facility] Administration Lactated Ringer's 1,000 mls @ 42 mls/hr 06/26/18 14:45 06/30/18 09:07 Lactated Ringers Solution IV 42 mls/hr ASDIR [facility] Administration Piperacillin Sod/Tazobactam 50 mls @ 100 mls/hr 06/30/18 18:00 07/01/18 02:49 Sod 3.375 gm/ Dextrose IVPB 100 mls/hr Q8H-IV [facility] Administration Protocol Lactobacillus Acidophilus 1 tab 06/26/18 22:00 06/30/18 23:21 Bacid - GT Not Given BID [facility] Levetiracetam 1,500 mg 06/26/18 22:00 06/30/18 23:19 Keppra Oral Solution - GT Not Given BID [facility] Metoclopramide HCl 5 mg 06/26/18 18:00 06/30/18 23:20 Reglan Oral Solution - GT Not Given QID [facility] Metoprolol Tartrate 25 mg 06/26/18 22:00 06/30/18 23:19 Lopressor - GT Not Given BID [facility] Metoprolol Tartrate 5 mg 06/27/18 08:14 Lopressor Injection - IVPB Q4H PRN HYPERTENSION Miconazole Nitrate 1 applic 06/30/18 18:15 06/30/18 23:21 Miconazole Nitrate TP 1 applic DAILY [facility] Administration Multi-Ingredient Ointment 1 applic 06/26/18 22:00 07/01/18 06:15 Zinc Oxide TP 1 applic TID [facility] Administration Non-Formulary Medication 2.5 ml 06/27/18 10:00 Olopatadine Hcl [Pataday] OU DAILY [facility] Pantoprazole Sodium 40 mg 06/26/18 15:00 06/30/18 09:20 Protonix - PO 40 mg DAILY [facility] Administration Phenobarbital 30 mg 06/26/18 22:00 06/30/18 23:19 Phenobarbital - GT Not Given BID [facility] Prednisone 40 mg 06/27/18 18:00 06/30/18 09:21 Deltasone - PO 40 mg DAILY [facility] Administration Ranitidine HCl 150 mg 06/26/18 22:00 06/30/18 23:20 Zantac Oral Solution - GT Not Given BID [facility] Silver Sulfadiazine 1 applic 06/27/18 10:00 06/30/18 09:24 Silvadene - TP 1 applic DAILY [facility] Administration Topiramate 25 mg 06/27/18 10:00 06/30/18 09:21 Topamax - PO 25 mg DAILY [facility] Administration Topiramate 200 mg 06/26/18 22:00 06/30/18 23:20 Topamax - GT Not Given BID [facility] Valproate Sodium 750 mg 06/26/18 22:00 06/30/18 23:19 Depakene - GT Not Given BID [facility] ASSESSMENT/PLAN: 67 y/o non-verbal Female with PMHx of anoxic brain injury, COPD (on 4L at home) , seizures, who was recently discharged from [facility] for Sepsis due to Pseudomonas UTI, presents from [facility] with Respiratory Distress. #Acute Hypercapneic Respiratory Failure -Continue Bilevel PRN (18/07/11/40%) -Currently on Piperacillin/Tazobactam 3.375 Q6H (ABx course started on 06/26) >> > Would de escalate to PO Augmentin via Gtube. -Prednisone 40mg PO Daily -Albuterol KELL Q6H PRN -Supplemental O2 to maintain SpO2 88-92% -Cultures negative -Keep HOB elevated -Aspiration precautions -Will likely need Bilevel on discharge at [facility] #Dislodged Gtube s/p replacement - resume feeds. #Hypertension -Metoprolol Tartrate 50mg GT BID, Amlodipine to 5mg GT Daily #HLD -Atorvastatin 20mg GT HS #GERD -Metoclopramide, Pantoprazole #Seizures -Levetiracetam, Valproate, Topiramate, Phenobarbital #FEN - will d/c LR @ 42 once G tube feeding resumes. #PPx -DVT: Lovenox -GI: PPI Code status: DNR Dispo: Will need acceptance back to [facility] once tolerates G Tube feeds. Plan d/w the internal revenue agent in round. Visit type - Emergency Visit Emergency Visit: Yes ED Registration Date: 06/26/18 Care time: The patient presented to the Emergency Department on the above date and was hospitalized for further evaluation of their emergent condition. - New Patient This patient is new to me today: Yes Date on this admission: 07/01/18 - Critical Care Critical Care patient: No - Discharge Referral Referred to [facility] No
--- NOTE | 2018-07-01 15:53 | PN ---
Physical Exam: SUBJECTIVE: Patient seen and examined this am. GTube place yesterday without surrounding erythema or drainage. No acute overnight events as per nursing staff. OBJECTIVE: Vital Signs Period Temp Pulse Resp BP Sys/Restrepo Pulse Ox Last 24 Hr 97.5 F-98.8 F 93-102 18-19 138-153/81-90 97-98 GENERAL: NAD HEAD: Microcephaly EYES: PERRL ENT: Moist mucous membranes NECK: No JVD LUNGS: Diminished breath sounds at the bases, no wheezes, no crackles HEART: Tachycardic, S1, S2 without murmur ABDOMEN: Soft, nondistended, + bowel sounds, GTube present without surrounding erythema or drainage EXTREMITIES: All extremities contracted, 1+ right pedal edema NEUROLOGICAL: Awake SKIN: Warm, Dry Laboratory Results - last 24 hr 06/30/18 07/01/18 07/01/18 16:00 07:36 14:50 Puncture Site Right radial ABG pH 7.44 ABG pCO2 at Pt Temp 48.9 H ABG pO2 at Pt Temp 85.3 ABG HCO3 32.7 H ABG O2 Sat (Measured) 96.3 ABG O2 Content 15.7 ABG Base Excess 7.8 H Scott Test Positive Oxygen Flow Rate 2l Sodium 139 139 Potassium 4.4 3.1 L Chloride 101 99 Carbon Dioxide 33 H 32 Anion Gap 5 L 8 BUN 8 11 Creatinine < 0.2 L 0.2 L Creat Clearance w eGFR 356.50 356.48 Random Glucose 103 82 Calcium 8.4 L 8.9 Microbiology 06/26/18 11:58 Blood - Peripheral Venous Blood Culture - Final NO GROWTH AFTER 5 DAYS INCUBATION 06/26/18 11:58 Blood - Peripheral Venous Blood Culture - Final NO GROWTH AFTER 5 DAYS INCUBATION Active Medications Albuterol Sulfate (Ventolin 0.083% Nebulizer Soln -) 1 amp NEB Q4H PRN PRN Reason: SHORT OF BREATH/WHEEZING Albuterol/Ipratropium (Duoneb -) 1 amp NEB RQID [facility] [place] Last Admin: 07/01/18 11:35 Dose: 1 amp Amino Acids (Prosource No Carb Liquid Pkt) 30 ml GT DAILY [facility] Last Admin: 06/30/18 09:20 Dose: 30 ml Amlodipine Besylate (Norvasc -) 2.5 mg GT DAILY [facility] [place] Last Admin: 06/30/18 09:21 Dose: 2.5 mg Arformoterol Tartrate (Brovana (Restricted To Pulmonology/Resp) -) 1 amp NEB RBID [facility] [place] Last Admin: 07/01/18 07:49 Dose: 1 amp Ascorbic Acid (Vitamin C -) 500 mg GT BID [facility] [place] Last Admin: 06/30/18 23:20 Dose: Not Given Atorvastatin Calcium (Lipitor -) 20 mg PO HS [facility] Last Admin: 06/30/18 23:19 Dose: Not Given Budesonide (Pulmicort 0.5 Mg Nebulizer -) 1 amp NEB RBID [facility] Last Admin: 07/01/18 07:51 Dose: 1 amp Calcium Carbonate/Cholecalciferol (Os-Jamar 500+D -) 2 tab GT HS [facility] [place] Last Admin: 06/30/18 23:19 Dose: Not Given Enoxaparin Sodium (Lovenox -) 40 mg SQ DAILY [facility] [place] Last Admin: 06/30/18 09:20 Dose: 40 mg Lactated Ringer's (Lactated Ringers Solution) 1,000 mls @ 42 mls/hr IV [facility]IR [facility] Last Admin: 06/30/18 09:07 Dose: 42 mls/hr Piperacillin Sod/Tazobactam (Sod 3.375 gm/ Dextrose) 50 mls @ 100 mls/hr IVPB Q8H-IV [facility]; Protocol Last Admin: 07/01/18 02:49 Dose: 100 mls/hr Lactobacillus Acidophilus (Bacid -) 1 tab GT BID [facility] [place] Last Admin: 06/30/18 23:21 Dose: Not Given Levetiracetam (Keppra Oral Solution -) 1,500 mg GT BID [facility] [place] Last Admin: 06/30/18 23:19 Dose: Not Given Metoclopramide HCl (Reglan Oral Solution -) 5 mg GT QID [facility] [place] Last Admin: 06/30/18 23:20 Dose: Not Given Metoprolol Tartrate (Lopressor -) 25 mg GT BID [facility] [place] Last Admin: 06/30/18 23:19 Dose: Not Given Metoprolol Tartrate (Lopressor Injection -) 5 mg IVPB Q4H PRN PRN Reason: HYPERTENSION Miconazole Nitrate (Miconazole Nitrate) 1 applic TP DAILY [facility] [place] Last Admin: 06/30/18 23:21 Dose: 1 applic Multi-Ingredient Ointment (Zinc Oxide) 1 applic TP TID [facility] [place] Last Admin: 07/01/18 06:15 Dose: 1 applic Non-Formulary Medication (Olopatadine Hcl [Pataday]) 2.5 ml OU DAILY [facility] [place] Pantoprazole Sodium (Protonix -) 40 mg PO DAILY [facility] [place] Last Admin: 06/30/18 09:20 Dose: 40 mg Phenobarbital (Phenobarbital -) 30 mg GT BID [facility] [place] Last Admin: 06/30/18 23:19 Dose: Not Given Prednisone (Deltasone -) 40 mg PO DAILY [facility] [place] Last Admin: 06/30/18 09:21 Dose: 40 mg Ranitidine HCl (Zantac Oral Solution -) 150 mg GT BID [facility] [place] Last Admin: 06/30/18 23:20 Dose: Not Given Silver Sulfadiazine (Silvadene -) 1 applic TP DAILY [facility] [place] Last Admin: 06/30/18 09:24 Dose: 1 applic Topiramate (Topamax -) 25 mg PO DAILY [facility] [place] Last Admin: 06/30/18 09:21 Dose: 25 mg Topiramate (Topamax -) 200 mg GT BID [facility] [place] Last Admin: 06/30/18 23:20 Dose: Not Given Valproate Sodium (Depakene -) 750 mg GT BID [facility] [place] Last Admin: 06/30/18 23:19 Dose: Not Given IMAGING: -CXR: Levoscoliosis of the spine. No airspace opacities are seen in the visualized left lung. Elevated right diaphragm. No airspace opacities are seen in the right upper lung zone. No pneumothorax is seen. -Chest CTA: No definite CT evidence of pulmonary embolism. Evaluation of the lower lobe subsegmental vessels is somewhat limited due to vessel crowding. Bilateral wedge-shaped lower lobe opacities are noted posteriorly consistent with atelectasis and/or infiltrates. Very small left-sided and trace right- sided pleural effusions are seen. -EKG: SINUS RHYTHM WITH SHORT MA, VR 100, QTc 397 ASSESSMENT/PLAN: 67 y/o non-verbal Female with PMHx of anoxic brain injury, COPD (on 4L at home) , seizures, who was recently discharged from [facility] for Sepsis due to Pseudomonas UTI, presents from [facility] with Respiratory Distress. #Acute Hypercapneic Respiratory Failure -Unclear etiology; Still consider micro aspirations -Bilevel PRN (15/5/12/40%) -Piperacillin/Tazobactam 3.375 Q6H (ABx course started on 06/26) -Prednisone 40mg PO Daily -Albuterol KELL Q6H PRN -Supplemental O2 to maintain SpO2 88-92% -Follow negative -ID (Dr. Hickey) consulted -Pulmonary (Dr. Gann) consulted -Keep HOB elevated -Aspiration precautions -Due to chronic respiratory failure and advancement of COPD along with lack of gas exchange, patient requires ventilation via noninvasive ventilator. Bipap no longer effective in tx to effectively decrease work of breathing and to improve pulmonary status and to prevent interruption or failure of respiratory support. #GTube dislodged -GI Consulted, Appreciate rec's -Resume tube feeds #Hypertension -Metoprolol Tartrate 50mg GT BID, Amlodipine to 5mg GT Daily #HLD -Atorvastatin 20mg GT HS #GERD -Metoclopramide, Pantoprazole #Seizures -Levetiracetam, Valproate, Topiramate, Phenobarbital #FEN -LR @ 42; Can d/c once tolerating tube feeds -Monitor lytes -NPO #PPx -DVT: Lovenox -GI: PPI Code status: DNR Visit type - Emergency Visit Emergency Visit: Yes ED Registration Date: 06/26/18 Care time: The patient presented to the Emergency Department on the above date and was hospitalized for further evaluation of their emergent condition. - New Patient This patient is new to me today: No - Critical Care Critical Care patient: No - Discharge Referral Referred to [facility] Med P.C.: No
[2018-07-01 16:19] LABS: MAGNESIUM 2.1 mg/dL (1.8-2.4)
[2018-07-01] MEDS: LACTATED RINGERS SOLUTION 1,000 ML IV SCH ×2 (17:39→18:07)
[2018-07-01] MEDS: ASCORBIC ACID 500 MG TABLET (FP) GT SCH ×2 (18:06→22:41)
[2018-07-01] MEDS: RANITIDINE HCL 150 MG/10 ML UNIT-DOSE GT SCH ×2 (18:06→22:42)
[2018-07-01] MEDS: TOPIRAMATE 25 MG TABLET (FP) PO SCH (18:06)
[2018-07-01] MEDS ORDERED: PT OWN MED DRAWER 7, Y5N ONE ×2 (22:30→22:45)
[2018-07-01] MEDS: METOPROLOL TARTRATE 50 MG TABLET (FP) GT SCH (22:41)
[2018-07-01] MEDS: ATORVASTATIN CA 20 MG TABLET (FP) PO SCH (22:41)
[2018-07-01] MEDS: CALCIUM 500MG/VIT-D 200 UNITS COMBO TABLET (FP) GT SCH (22:41)
[2018-07-02] MEDS ORDERED: DEXTROSE 5%-WATER - 50 ML IVPB ONE ×3 (01:57→17:59)
[2018-07-02] MEDS ORDERED: PIPERACILLIN/TAZOBACTAM 3.375 GM VIAL IVPB ONE ×3 (01:57→17:59)
[2018-07-02] MEDS: PIPERACILLIN/TAZOB 3.375 GM 3.375 GM in DEXTROSE 5%-WATER - 50 ML IVPB SCH ×3 (02:06→18:28)
[2018-07-02] MEDS: ZINC OXIDE 20% TOPICAL OINTMENT 30 GM TUBE TP SCH ×3 (05:49→21:39)
[2018-07-02 07:35] LABS: ANION GAP 5 MMOL/L (8-16); BLOOD UREA NITROGEN 9 mg/dL (7-18); CALCIUM 8.2 mg/dL (8.5-10.1); CHLORIDE 102 mmol/L (98-107); CO2 36 mmol/L (21-32); CREATININE 0.2 mg/dL (0.55-1.3); GLUCOSE,RANDOM 99 mg/dL (74-106); MAGNESIUM 2.3 mg/dL (1.8-2.4); PHOSPHOROUS 3.5 mg/dL (2.5-4.9); SODIUM 143 mmol/L (136-145)
[2018-07-02 08:29] LABS: POTASSIUM 2.8 mmol/L (3.5-5.1)
[2018-07-02] MEDS: ARFORMOTEROL TARTRATE 15 MCG/2 ML VIAL NEB SCH ×2 (08:48→21:00)
[2018-07-02] MEDS: BUDESONIDE 0.5 MG/2 ML INH SUSP VIAL NEB SCH ×2 (08:49→21:00)
[2018-07-02 09:52] LABS: ARTERIAL BLD GAS O2 SATURATION 98.5 % (95-98); ARTERIAL BLOOD GAS BASE EXCESS 8.2 meq/l (-2-2); ARTERIAL BLOOD GAS PCO2 63.7 mmHg (35-45); ARTERIAL BLOOD GAS PO2 140 mmHg (80-105); ARTERIAL BLOOD GAS pH 7.36 (7.35-7.45)
[2018-07-02 09:53] LABS: ALLENS TEST POSITIVE
[2018-07-02] MEDS ORDERED: PT OWN MED DRAWER 7, Y5N ONE ×2 (10:53→14:08)
[2018-07-02] MEDS: predniSONE 20 MG TABLET (UD) PO SCH (10:59)
[2018-07-02] MEDS: TOPIRAMATE 200 MG TABLET (FP) GT SCH ×2 (10:59→21:37)
[2018-07-02] MEDS: ASCORBIC ACID 500 MG TABLET (FP) GT SCH ×2 (11:00→21:37)
[2018-07-02] MEDS: AMINO ACIDS/PROTEIN HYDROLYS 30 ML LIQUID.PKT GT SCH (11:00)
[2018-07-02] MEDS: PHENobarbital 30 MG TABLET GT SCH ×2 (11:00→21:37)
[2018-07-02] MEDS: amLODIPine BESYLATE 2.5 MG TABLET (FP) GT SCH (11:00)
[2018-07-02] MEDS: PANTOPRAZOLE 40 MG TABLET (FP) PO SCH (11:00)
[2018-07-02] MEDS: METOPROLOL TARTRATE 50 MG TABLET (FP) GT SCH ×2 (11:00→21:37)
[2018-07-02] MEDS: LACTOBACILLUS ACIDOPHILUS 1 TABLET GT SCH ×2 (11:01→21:37)
[2018-07-02] MEDS: ENOXAPARIN NA (PORCINE) 40 MG/0.4 ML DISP.SYRIN SQ SCH (11:01)
[2018-07-02] MEDS: METOCLOPRAMIDE HCL 5 MG/5 ML UNIT DOSE CUP GT SCH ×4 (11:01→21:37)
[2018-07-02] MEDS: levETIRAcetam 500 MG/5 ML ORAL SOLUTION (UNIT-DOSE CUPS) GT SCH ×2 (11:02→21:39)
[2018-07-02] MEDS: TOPIRAMATE 25 MG TABLET (FP) PO SCH (11:02)
[2018-07-02] MEDS: RANITIDINE HCL 150 MG/10 ML UNIT-DOSE GT SCH ×2 (11:03→21:38)
--- NOTE | 2018-07-02 11:50 | RAPID ---
Physical Examination Labs: CBC, BMP 06/30/18 06:30 07/02/18 06:00 Rapid Response - Rapid Response Assessment: Subjective: Rapid response called at 07:39, on call pharmacy technician team responded immediately Informed by nursing staff that patient desaturated into the low 80's Nursing staff reports increased secretions when suctioning Objective: BP 158/92, HR 99, R18, 95% On Bipap Lethargic, Mild distress Tachycardic S1, S2 without murmur Diminished breath sounds at the bases Soft, NT, ND, GTube in place Extremities Contracted A/P: #Respiratory distress -Possibly due to aspiration; Still consider mucus plugging -Suction frequently -Placed on Bipap 15/5//R12/100% -Check ABG, CXR -Hold tube feeds -HOB elevated
--- NOTE | 2018-07-02 11:59 | PN ---
Physical Exam: SUBJECTIVE: Patient seen and examined this AM. Rapid response called for respiratory distress, started on Bipap. Otherwise no acute events overnight. OBJECTIVE: Vital Signs Period Temp Pulse Resp BP Sys/Restrepo Pulse Ox Last 24 Hr 98 F-98.6 F 74-101 18-20 126-164/60-86 97-99 GENERAL: Mild distress HEAD: Microcephaly EYES: PERRL ENT: Moist mucous membranes NECK: No JVD LUNGS: Diminished breath sounds at the bases, no wheezes, no crackles HEART: Tachycardic, S1, S2 without murmur ABDOMEN: Soft, nondistended, + bowel sounds, GTube present without surrounding erythema or drainage EXTREMITIES: All extremities contracted, 1+ right pedal edema NEUROLOGICAL: Sleepy SKIN: Warm, Dry Laboratory Results - last 24 hr 07/01/18 07/01/18 07/02/18 07:36 14:50 06:00 Anticoagulation Therapy Puncture Site Right radial ABG pH 7.44 ABG pCO2 at Pt Temp 48.9 H ABG pO2 at Pt Temp 85.3 ABG HCO3 32.7 H ABG O2 Sat (Measured) 96.3 ABG O2 Content 15.7 ABG Base Excess 7.8 H Scott Test Positive O2 Delivery Device Oxygen Flow Rate 2l Vent Mode Vent Rate Mechanical Rate Pressure Support Vent Sodium 139 143 Potassium 3.1 L 2.8 L* Chloride 99 102 Carbon Dioxide 32 36 H Anion Gap 8 5 L BUN 11 9 Creatinine 0.2 L 0.2 L Creat Clearance w eGFR 356.48 356.48 Random Glucose 82 99 Calcium 8.9 8.2 L Phosphorus 3.5 Magnesium 2.1 2.3 07/02/18 09:45 Anticoagulation Therapy No Result Required. Puncture Site Left radial ABG pH 7.36 ABG pCO2 at Pt Temp 63.7 H ABG pO2 at Pt Temp 140 H ABG HCO3 35.4 H ABG O2 Sat (Measured) 98.5 H ABG O2 Content 18.1 ABG Base Excess 8.2 H Scott Test Positive O2 Delivery Device No Result Required. Oxygen Flow Rate No Result Required. Vent Mode No Result Required. Vent Rate No Result Required. Mechanical Rate No Result Required. Pressure Support Vent No Result Required. Sodium Potassium Chloride Carbon Dioxide Anion Gap BUN Creatinine Creat Clearance w eGFR Random Glucose Calcium Phosphorus Magnesium Microbiology 06/26/18 11:58 Blood - Peripheral Venous Blood Culture - Final NO GROWTH AFTER 5 DAYS INCUBATION 06/26/18 11:58 Blood - Peripheral Venous Blood Culture - Final NO GROWTH AFTER 5 DAYS INCUBATION Active Medications Amino Acids (Prosource No Carb Liquid Pkt) 30 ml GT DAILY [facility] Last Admin: 07/02/18 11:00 Dose: 30 ml Amlodipine Besylate (Norvasc -) 2.5 mg GT DAILY [facility] Last Admin: 07/02/18 11:00 Dose: 2.5 mg Arformoterol Tartrate (Brovana (Restricted To Pulmonology/Resp) -) 1 amp NEB RBID [facility] Last Admin: 07/02/18 08:48 Dose: 1 amp Ascorbic Acid (Vitamin C -) 500 mg GT BID [facility] Last Admin: 07/02/18 11:00 Dose: 500 mg Atorvastatin Calcium (Lipitor -) 20 mg PO HS [facility] Last Admin: 07/01/18 22:41 Dose: 20 mg Budesonide (Pulmicort 0.5 Mg Nebulizer -) 1 amp NEB RBID [facility] Last Admin: 07/02/18 08:49 Dose: 1 amp Calcium Carbonate/Cholecalciferol (Os-Jamar 500+D -) 2 tab GT HS [facility] Last Admin: 07/01/18 22:41 Dose: 2 tab Enoxaparin Sodium (Lovenox -) 40 mg SQ DAILY [facility] Last Admin: 07/02/18 11:01 Dose: 40 mg Lactated Ringer's (Lactated Ringers Solution) 1,000 mls @ 42 mls/hr IV ASDIR [facility] Last Admin: 07/01/18 18:07 Dose: Not Given Piperacillin Sod/Tazobactam (Sod 3.375 gm/ Dextrose) 50 mls @ 100 mls/hr IVPB Q8H-IV [facility]; Protocol Last Admin: 07/02/18 11:00 Dose: 100 mls/hr Lactobacillus Acidophilus (Bacid -) 1 tab GT BID [facility] Last Admin: 07/02/18 11:01 Dose: 1 tab Levetiracetam (Keppra Oral Solution -) 1,500 mg GT BID [facility] Last Admin: 07/02/18 11:02 Dose: 1,500 mg Metoclopramide HCl (Reglan Oral Solution -) 5 mg GT QID [facility] Last Admin: 07/02/18 11:01 Dose: 5 mg Metoprolol Tartrate (Lopressor Injection -) 5 mg IVPB Q4H PRN PRN Reason: HYPERTENSION Metoprolol Tartrate (Lopressor -) 50 mg GT BID [facility] Last Admin: 07/02/18 11:00 Dose: 50 mg Miconazole Nitrate (Miconazole Nitrate) 1 applic TP DAILY [facility] Last Admin: 07/01/18 11:35 Dose: 1 applic Multi-Ingredient Ointment (Zinc Oxide) 1 applic TP TID [facility] Last Admin: 07/02/18 05:49 Dose: 1 applic Non-Formulary Medication (Olopatadine Hcl [Pataday]) 2.5 ml OU DAILY [facility] Pantoprazole Sodium (Protonix -) 40 mg PO DAILY [facility] Last Admin: 07/02/18 11:00 Dose: 40 mg Phenobarbital (Phenobarbital -) 30 mg GT BID [facility] Last Admin: 07/02/18 11:00 Dose: 30 mg Prednisone (Deltasone -) 40 mg PO DAILY [facility] Last Admin: 07/02/18 10:59 Dose: 40 mg Ranitidine HCl (Zantac Oral Solution -) 150 mg GT BID [facility] Last Admin: 07/02/18 11:03 Dose: 150 mg Silver Sulfadiazine (Silvadene -) 1 applic TP DAILY [facility] Last Admin: 07/01/18 12:35 Dose: 1 applic Topiramate (Topamax -) 25 mg PO DAILY [facility] Last Admin: 07/02/18 11:02 Dose: 25 mg Topiramate (Topamax -) 200 mg GT BID [facility] Last Admin: 07/02/18 10:59 Dose: 200 mg Valproate Sodium (Depakene -) 750 mg GT BID [facility] Last Admin: 07/01/18 22:45 Dose: 750 mg IMAGING: -CXR: Levoscoliosis of the spine. No airspace opacities are seen in the visualized left lung. Elevated right diaphragm. No airspace opacities are seen in the right upper lung zone. No pneumothorax is seen. -CXR: Portion of the left lung is obscured by the thoracic spine. No airspace opacities are seen in the visualized lungs. No pneumothorax, or large pleural effusion is seen. Unable to evaluate adequately the cardiac silhouette. Old healed fracture proximal left humerus. -Chest CTA: No definite CT evidence of pulmonary embolism. Evaluation of the lower lobe subsegmental vessels is somewhat limited due to vessel crowding. Bilateral wedge-shaped lower lobe opacities are noted posteriorly consistent with atelectasis and/or infiltrates. Very small left-sided and trace right- sided pleural effusions are seen. -EKG: SINUS RHYTHM WITH SHORT AR, VR 100, QTc 397 ASSESSMENT/PLAN: 67 y/o non-verbal Female with PMHx of anoxic brain injury, COPD (on 4L at home) , seizures, who was recently discharged from [facility] for Sepsis due to Pseudomonas UTI, presents from [facility] with Respiratory Distress. #Acute Hypercapneic Respiratory Failure -Unclear etiology; Still consider micro aspirations -ABG and CXR noted -Placed back on Bilevel (15///100%) -Piperacillin/Tazobactam 3.375 Q6H (ABx course started on 06/26) -Prednisone 40mg PO Daily -Albuterol KELL Q6H PRN -Supplemental O2 to maintain SpO2 88-92% -ID (Dr. Hickey) consulted -Pulmonary (Dr. Gann) consulted -Keep HOB elevated -Aspiration precautions -Due to chronic respiratory failure and advancement of COPD along with lack of gas exchange, patient requires ventilation via noninvasive ventilator. Bipap no longer effective in tx to effectively decrease work of breathing and to improve pulmonary status and to prevent interruption or failure of respiratory support. #GTube dislodged -GI Consulted, Appreciate rec's -Hold tube feeds in the setting of aspiration #Hypertension -Metoprolol Tartrate 50mg GT BID, Amlodipine to 5mg GT Daily #HLD -Atorvastatin 20mg GT HS #GERD -Metoclopramide, Pantoprazole #Seizures -Levetiracetam, Valproate, Topiramate, Phenobarbital #FEN -LR @ 42 -Monitor lytes -NPO #PPx -DVT: Lovenox -GI: PPI Code status: DNR Visit type - Emergency Visit Emergency Visit: Yes ED Registration Date: 06/26/18 Care time: The patient presented to the Emergency Department on the above date and was hospitalized for further evaluation of their emergent condition. - New Patient This patient is new to me today: No - Critical Care Critical Care patient: No - Discharge Referral Referred to [facility] Med P.C.: No
[2018-07-02] MEDS ORDERED: POTASSIUM CHLORIDE TABS 20 MEQ TABLET.ER (FP) PO ONE (12:15)
[2018-07-02] MEDS: KCL 10 MEQ IVPB 10 MEQ/100 ML INFUS.BAG IVPB SCH ×3 (12:42→14:31)
[2018-07-02] MEDS ORDERED: POTASSIUM CHLORIDE ORAL LIQUID 20 MEQ/15 ML PO ONE (13:15)
[2018-07-02] MEDS: VALPROATE SODIUM 250 MG/5 ML UNIT DOSE CUP GT SCH ×2 (13:15→21:38)
[2018-07-02] MEDS: MICONAZOLE NITRATE 28 GM TUBE TP SCH (13:17)
[2018-07-02] MEDS: SILVER SULFADIAZINE 1% TOP CREAM 50 GM JAR TP SCH (13:18)
[2018-07-02] MEDS: METOPROLOL TARTRATE 25 MG TABLET (FP) GT SCH (13:34)
--- NOTE | 2018-07-02 14:06 | PN ---
Progress Note, Physician History of Present Illness: continues to improve stable improving - Current Medication List Current Medications: Active Medications Amino Acids (Prosource No Carb Liquid Pkt) 30 ml GT DAILY [facility] Last Admin: 07/02/18 11:00 Dose: 30 ml Amlodipine Besylate (Norvasc -) 2.5 mg GT DAILY [facility] Last Admin: 07/02/18 11:00 Dose: 2.5 mg Arformoterol Tartrate (Brovana (Restricted To Pulmonology/Resp) -) 1 amp NEB RBID [facility] Last Admin: 07/02/18 08:48 Dose: 1 amp Ascorbic Acid (Vitamin C -) 500 mg GT BID [facility] Last Admin: 07/02/18 11:00 Dose: 500 mg Atorvastatin Calcium (Lipitor -) 20 mg PO HS [facility] Last Admin: 07/01/18 22:41 Dose: 20 mg Budesonide (Pulmicort 0.5 Mg Nebulizer -) 1 amp NEB RBID [facility] Last Admin: 07/02/18 08:49 Dose: 1 amp Calcium Carbonate/Cholecalciferol (Os-Jamar 500+D -) 2 tab GT HS [facility] Last Admin: 07/01/18 22:41 Dose: 2 tab Enoxaparin Sodium (Lovenox -) 40 mg SQ DAILY [facility] Last Admin: 07/02/18 11:01 Dose: 40 mg Lactated Ringer's (Lactated Ringers Solution) 1,000 mls @ 42 mls/hr IV ASDIR [facility] Last Admin: 07/01/18 18:07 Dose: Not Given Piperacillin Sod/Tazobactam (Sod 3.375 gm/ Dextrose) 50 mls @ 100 mls/hr IVPB Q8H-IV [facility]; Protocol Last Admin: 07/02/18 11:00 Dose: 100 mls/hr Potassium Chloride (Potassium Chloride 10 Meq Premix Ivpb -) 10 meq in 100 mls @ 100 mls/hr IVPB Q60M [facility] Stop: 07/02/18 15:29 Last Admin: 07/02/18 13:40 Dose: 100 mls/hr Lactobacillus Acidophilus (Bacid -) 1 tab GT BID [facility] Last Admin: 07/02/18 11:01 Dose: 1 tab Levetiracetam (Keppra Oral Solution -) 1,500 mg GT BID [facility] Last Admin: 07/02/18 11:02 Dose: 1,500 mg Metoclopramide HCl (Reglan Oral Solution -) 5 mg GT QID [facility] Last Admin: 07/02/18 11:01 Dose: 5 mg Metoprolol Tartrate (Lopressor Injection -) 5 mg IVPB Q4H PRN PRN Reason: HYPERTENSION Metoprolol Tartrate (Lopressor -) 50 mg GT BID [facility] Last Admin: 07/02/18 11:00 Dose: 50 mg Miconazole Nitrate (Miconazole Nitrate) 1 applic TP DAILY [facility] Last Admin: 07/02/18 13:17 Dose: 1 applic Multi-Ingredient Ointment (Zinc Oxide) 1 applic TP TID [facility] Last Admin: 07/02/18 05:49 Dose: 1 applic Non-Formulary Medication (Olopatadine Hcl [Pataday]) 2.5 ml OU DAILY [facility] Pantoprazole Sodium (Protonix -) 40 mg PO DAILY [facility] Last Admin: 07/02/18 11:00 Dose: 40 mg Phenobarbital (Phenobarbital -) 30 mg GT BID [facility] Last Admin: 07/02/18 11:00 Dose: 30 mg Prednisone (Deltasone -) 40 mg PO DAILY [facility] Last Admin: 07/02/18 10:59 Dose: 40 mg Ranitidine HCl (Zantac Oral Solution -) 150 mg GT BID [facility] Last Admin: 07/02/18 11:03 Dose: 150 mg Silver Sulfadiazine (Silvadene -) 1 applic TP DAILY [facility] Last Admin: 07/02/18 13:18 Dose: 1 applic Topiramate (Topamax -) 25 mg PO DAILY [facility] Last Admin: 07/02/18 11:02 Dose: 25 mg Topiramate (Topamax -) 200 mg GT BID [facility] Last Admin: 07/02/18 10:59 Dose: 200 mg Valproate Sodium (Depakene -) 750 mg GT BID [facility] Last Admin: 07/02/18 13:15 Dose: 750 mg - Objective Vital Signs: Vital Signs Temperature 98.0 F 07/02/18 06:32 Pulse Rate 77 07/02/18 06:32 Respiratory Rate 20 07/02/18 06:32 Blood Pressure 126/60 07/02/18 06:32 O2 Sat by Pulse Oximetry (%) 98 07/02/18 12:00 Constitutional: Yes: No Distress, Calm Respiratory: Yes: On Nasal O2 Gastrointestinal: Yes: Normal Bowel Sounds, Soft, Other Musculoskeletal: Yes: WNL Extremities: Yes: Other Neurological: Yes: Alert, Other Psychiatric: Yes: Other Labs: CBC, BMP 06/30/18 06:30 07/02/18 06:00 Assessment/Plan Problem List - Problems (1) Acute on chronic respiratory failure with hypoxia and hypercapnia Code(s): J96.21 - ACUTE AND CHRONIC RESPIRATORY FAILURE WITH HYPOXIA; J96.22 - ACUTE AND CHRONIC RESPIRATORY FAILURE WITH HYPERCAPNIA (2) COPD exacerbation Code(s): J44.1 - CHRONIC OBSTRUCTIVE PULMONARY DISEASE W (ACUTE) EXACERBATION (3) Anoxic brain damage Code(s): G93.1 - ANOXIC BRAIN DAMAGE, NOT ELSEWHERE CLASSIFIED (4) Functional quadriplegia Code(s): R53.2 - FUNCTIONAL QUADRIPLEGIA Assessment/Plan Acute on Chronic Hypoxic and Hypercapneic Respiratory Failure Acute COPD Exacerbation Atelectasis vs Pneumonia Anoxic Brain Injury HTN Functional Quadriplegia Suspect recurrent microaspiration plan continue current mgmt resp support rest as per the team monitor abx will consider deesclating if patient remains stable
[2018-07-02] MEDS ORDERED: POTASSIUM CHLORIDE ORAL LIQUID 20 MEQ/15 ML GT ONE (14:15)
--- NOTE | 2018-07-02 15:04 | PN ---
Physical Exam: SUBJECTIVE: Patient seen and examined at bedside. Noted the event of rapid response earlier this AM for respiratory distress, placed on BiPAP. OBJECTIVE: Vital Signs Period Temp Pulse Resp BP Sys/Restrepo Pulse Ox Last 24 Hr 98 F-98.6 F 74-101 18-20 126-164/60-86 97-99 GENERAL: The patient is awake, alert. HEENT : Unremarkable. LUNGS: Breath sounds equal, Crackly at lower bases HEART: Regular rate and rhythm, S1, S2 without murmur, rub or gallop. ABDOMEN: Soft, nontender, nondistended, normoactive bowel sounds, no guarding G tube in place. EXTREMITIES: Contracted lower limbs . NEUROLOGICAL: Mentally challenged at baseline. PSYCH: as above. SKIN: Warm, dry, normal turgor, no rashes or lesions noted Laboratory Results - last 24 hr 07/01/18 07/01/18 07/02/18 07:36 14:50 06:00 Anticoagulation Therapy Puncture Site Right radial ABG pH 7.44 ABG pCO2 at Pt Temp 48.9 H ABG pO2 at Pt Temp 85.3 ABG HCO3 32.7 H ABG O2 Sat (Measured) 96.3 ABG O2 Content 15.7 ABG Base Excess 7.8 H Scott Test Positive O2 Delivery Device Oxygen Flow Rate 2l Vent Mode Vent Rate Mechanical Rate Pressure Support Vent Sodium 139 143 Potassium 3.1 L 2.8 L* Chloride 99 102 Carbon Dioxide 32 36 H Anion Gap 8 5 L BUN 11 9 Creatinine 0.2 L 0.2 L Creat Clearance w eGFR 356.48 356.48 Random Glucose 82 99 Calcium 8.9 8.2 L Phosphorus 3.5 Magnesium 2.1 2.3 07/02/18 09:45 Anticoagulation Therapy No Result Required. Puncture Site Left radial ABG pH 7.36 ABG pCO2 at Pt Temp 63.7 H ABG pO2 at Pt Temp 140 H ABG HCO3 35.4 H ABG O2 Sat (Measured) 98.5 H ABG O2 Content 18.1 ABG Base Excess 8.2 H Scott Test Positive O2 Delivery Device No Result Required. Oxygen Flow Rate No Result Required. Vent Mode No Result Required. Vent Rate No Result Required. Mechanical Rate No Result Required. Pressure Support Vent No Result Required. Sodium Potassium Chloride Carbon Dioxide Anion Gap BUN Creatinine Creat Clearance w eGFR Random Glucose Calcium Phosphorus Magnesium Active Medications Generic Name Dose Route Start Last Admin Trade Name Freq PRN Reason Stop Dose Admin Amino Acids 30 ml 06/27/18 10:00 07/02/18 11:00 Prosource No Carb Liquid Pkt GT 30 ml DAILY [facility] Administration Amlodipine Besylate 2.5 mg 06/27/18 10:00 07/02/18 11:00 Norvasc - GT 2.5 mg DAILY [facility] Administration Arformoterol Tartrate 1 amp 06/26/18 20:00 07/02/18 08:48 Brovana (Restricted To Pulmonology/Resp) - NEB 1 amp RBID [facility] Administration Ascorbic Acid 500 mg 06/26/18 22:00 07/02/18 11:00 Vitamin C - GT 500 mg BID [facility] Administration Atorvastatin Calcium 20 mg 06/26/18 22:00 07/01/18 22:41 Lipitor - PO 20 mg HS [facility] Administration Budesonide 1 amp 06/26/18 20:00 07/02/18 08:49 Pulmicort 0.5 Mg Nebulizer - NEB 1 amp RBID [facility] Administration Calcium Carbonate/Cholecalciferol 2 tab 06/26/18 22:00 07/01/18 22:41 Os-Jamar 500+D - GT 2 tab HS [facility] Administration Enoxaparin Sodium 40 mg 06/26/18 15:00 07/02/18 11:01 Lovenox - SQ 40 mg DAILY [facility] Administration Lactated Ringer's 1,000 mls @ 42 mls/hr 06/26/18 14:45 07/01/18 18:07 Lactated Ringers Solution IV Not Given ASDIR [facility] Piperacillin Sod/Tazobactam 50 mls @ 100 mls/hr 06/30/18 18:00 07/02/18 11:00 Sod 3.375 gm/ Dextrose IVPB 100 mls/hr Q8H-IV [facility] Administration Protocol Potassium Chloride 10 meq in 100 mls @ 100 mls/hr 07/02/18 12:30 07/02/18 14: 31 Potassium Chloride 10 Meq Premix Ivpb - IVPB 07/02/18 15:29 100 mls/hr Q60M [facility] Administration Lactobacillus Acidophilus 1 tab 06/26/18 22:00 07/02/18 11:01 Bacid - GT 1 tab BID [facility] Administration Levetiracetam 1,500 mg 06/26/18 22:00 07/02/18 11:02 Keppra Oral Solution - GT 1,500 mg BID [facility] Administration Metoclopramide HCl 5 mg 06/26/18 18:00 07/02/18 14:14 Reglan Oral Solution - GT 5 mg QID [facility] Administration Metoprolol Tartrate 5 mg 06/27/18 08:14 Lopressor Injection - IVPB Q4H PRN HYPERTENSION Metoprolol Tartrate 50 mg 07/01/18 22:00 07/02/18 11:00 Lopressor - GT 50 mg BID [facility] Administration Miconazole Nitrate 1 applic 06/30/18 18:15 07/02/18 13:17 Miconazole Nitrate TP 1 applic DAILY [facility] Administration Multi-Ingredient Ointment 1 applic 06/26/18 22:00 07/02/18 14:14 Zinc Oxide TP 1 applic TID [facility] Administration Non-Formulary Medication 2.5 ml 06/27/18 10:00 Olopatadine Hcl [Pataday] OU DAILY [facility] Pantoprazole Sodium 40 mg 06/26/18 15:00 07/02/18 11:00 Protonix - PO 40 mg DAILY [facility] Administration Phenobarbital 30 mg 06/26/18 22:00 07/02/18 11:00 Phenobarbital - GT 30 mg BID [facility] Administration Prednisone 40 mg 06/27/18 18:00 07/02/18 10:59 Deltasone - PO 40 mg DAILY [facility] Administration Ranitidine HCl 150 mg 06/26/18 22:00 07/02/18 11:03 Zantac Oral Solution - GT 150 mg BID [facility] Administration Silver Sulfadiazine 1 applic 06/27/18 10:00 07/02/18 13:18 Silvadene - TP 1 applic DAILY [facility] Administration Topiramate 25 mg 06/27/18 10:00 07/02/18 11:02 Topamax - PO 25 mg DAILY [facility] Administration Topiramate 200 mg 06/26/18 22:00 07/02/18 10:59 Topamax - GT 200 mg BID [facility] Administration Valproate Sodium 750 mg 06/26/18 22:00 07/02/18 13:15 Depakene - GT 750 mg BID [facility] Administration ASSESSMENT/PLAN: 67 y/o non-verbal Female with PMHx of anoxic brain injury, COPD (on 4L at home) , seizures, who was recently discharged from [facility] for Sepsis due to Pseudomonas UTI, presents from [facility] with Respiratory Distress. #Acute Hypercapneic / hypoxic Respiratory Failure - put back on Bipap this am . cannot r/o aspiration. -Currently on Piperacillin/Tazobactam 3.375 Q6H (ABx course started on 06/26). -Prednisone 40mg PO Daily -Albuterol NEb Q6H PRN -Supplemental O2 to maintain SpO2 88-92% -Cultures negative -Keep HOB elevated -Aspiration precautions -Will likely need Bilevel on discharge at [facility] Hypokalemia >> Being repleted. #Dislodged Gtube s/p replacement - resumed feeds already. #Hypertension -Metoprolol Tartrate 50mg GT BID, Amlodipine to 5mg GT Daily #HLD -Atorvastatin 20mg GT HS #GERD -Metoclopramide, Pantoprazole #Seizures -Levetiracetam, Valproate, Topiramate, Phenobarbital #PPx -DVT: Lovenox -GI: PPI Code status: DNR Dispo: Will need acceptance back to [place] once tolerates G Tube feeds well and medically more stable. Plan d/w the collector of internal revenue in round. Visit type - Emergency Visit Emergency Visit: Yes ED Registration Date: 06/26/18 Care time: The patient presented to the Emergency Department on the above date and was hospitalized for further evaluation of their emergent condition. - New Patient This patient is new to me today: No - Critical Care Critical Care patient: No - Discharge Referral Referred to [facility] Med P.C.: No
--- NOTE | 2018-07-02 15:34 | PN ---
Progress Note, Physician History of Present Illness: pulmonary sleeping on bipap,comfortable,-resp distress - Current Medication List Current Medications: Active Medications Amino Acids (Prosource No Carb Liquid Pkt) 30 ml GT DAILY [facility] Last Admin: 07/02/18 11:00 Dose: 30 ml Amlodipine Besylate (Norvasc -) 2.5 mg GT DAILY [facility] Last Admin: 07/02/18 11:00 Dose: 2.5 mg Arformoterol Tartrate (Brovana (Restricted To Pulmonology/Resp) -) 1 amp NEB RBID [facility] Last Admin: 07/02/18 08:48 Dose: 1 amp Ascorbic Acid (Vitamin C -) 500 mg GT BID [facility] Last Admin: 07/02/18 11:00 Dose: 500 mg Atorvastatin Calcium (Lipitor -) 20 mg PO HS [facility] Last Admin: 07/01/18 22:41 Dose: 20 mg Budesonide (Pulmicort 0.5 Mg Nebulizer -) 1 amp NEB RBID [facility] Last Admin: 07/02/18 08:49 Dose: 1 amp Calcium Carbonate/Cholecalciferol (Os-Jamar 500+D -) 2 tab GT HS [facility] Last Admin: 07/01/18 22:41 Dose: 2 tab Enoxaparin Sodium (Lovenox -) 40 mg SQ DAILY [facility] Last Admin: 07/02/18 11:01 Dose: 40 mg Lactated Ringer's (Lactated Ringers Solution) 1,000 mls @ 42 mls/hr IV ASDIR [facility] Last Admin: 07/01/18 18:07 Dose: Not Given Piperacillin Sod/Tazobactam (Sod 3.375 gm/ Dextrose) 50 mls @ 100 mls/hr IVPB Q8H-IV [facility]; Protocol Last Admin: 07/02/18 11:00 Dose: 100 mls/hr Lactobacillus Acidophilus (Bacid -) 1 tab GT BID [facility] Last Admin: 07/02/18 11:01 Dose: 1 tab Levetiracetam (Keppra Oral Solution -) 1,500 mg GT BID [facility] Last Admin: 07/02/18 11:02 Dose: 1,500 mg Metoclopramide HCl (Reglan Oral Solution -) 5 mg GT QID [facility] Last Admin: 07/02/18 14:14 Dose: 5 mg Metoprolol Tartrate (Lopressor Injection -) 5 mg IVPB Q4H PRN PRN Reason: HYPERTENSION Metoprolol Tartrate (Lopressor -) 50 mg GT BID [facility] Last Admin: 07/02/18 11:00 Dose: 50 mg Miconazole Nitrate (Miconazole Nitrate) 1 applic TP DAILY [facility] Last Admin: 07/02/18 13:17 Dose: 1 applic Multi-Ingredient Ointment (Zinc Oxide) 1 applic TP TID [facility] Last Admin: 07/02/18 14:14 Dose: 1 applic Non-Formulary Medication (Olopatadine Hcl [Pataday]) 2.5 ml OU DAILY [facility] Pantoprazole Sodium (Protonix -) 40 mg PO DAILY [facility] Last Admin: 07/02/18 11:00 Dose: 40 mg Phenobarbital (Phenobarbital -) 30 mg GT BID [facility] Last Admin: 07/02/18 11:00 Dose: 30 mg Prednisone (Deltasone -) 40 mg PO DAILY [facility] Last Admin: 07/02/18 10:59 Dose: 40 mg Ranitidine HCl (Zantac Oral Solution -) 150 mg GT BID [facility] Last Admin: 07/02/18 11:03 Dose: 150 mg Silver Sulfadiazine (Silvadene -) 1 applic TP DAILY [facility] Last Admin: 07/02/18 13:18 Dose: 1 applic Topiramate (Topamax -) 25 mg PO DAILY [facility] Last Admin: 07/02/18 11:02 Dose: 25 mg Topiramate (Topamax -) 200 mg GT BID [facility] Last Admin: 07/02/18 10:59 Dose: 200 mg Valproate Sodium (Depakene -) 750 mg GT BID [facility] Last Admin: 07/02/18 13:15 Dose: 750 mg - Objective Vital Signs: Vital Signs Temperature 98.7 F 07/02/18 15:11 Pulse Rate 70 07/02/18 15:11 Respiratory Rate 20 07/02/18 06:32 Blood Pressure 155/85 07/02/18 15:11 O2 Sat by Pulse Oximetry (%) 98 07/02/18 12:00 Constitutional: Yes: Thin, Other (sleeping) Eyes: Yes: WNL HENT: Yes: WNL Neck: Yes: WNL Cardiovascular: Yes: Regular Rate and Rhythm, S1, S2 Respiratory: Yes: Rhonchi (scattered rhonchi) Gastrointestinal: Yes: Normal Bowel Sounds, Soft Extremities: Yes: Other (contracted) Edema: No Labs: CBC, BMP 06/30/18 06:30 07/02/18 06:00 Laboratory Tests 07/02/18 09:45 ABG pH 7.36 ABG pCO2 at Pt Temp 63.7 H ABG pO2 at Pt Temp 140 H ABG HCO3 35.4 H ABG O2 Sat (Measured) 98.5 H Assessment/Plan Problem List - Problems (1) Acute on chronic respiratory failure with hypoxia and hypercapnia Code(s): J96.21 - ACUTE AND CHRONIC RESPIRATORY FAILURE WITH HYPOXIA; J96.22 - ACUTE AND CHRONIC RESPIRATORY FAILURE WITH HYPERCAPNIA (2) COPD exacerbation Code(s): J44.1 - CHRONIC OBSTRUCTIVE PULMONARY DISEASE W (ACUTE) EXACERBATION (3) Anoxic brain damage Code(s): G93.1 - ANOXIC BRAIN DAMAGE, NOT ELSEWHERE CLASSIFIED (4) Functional quadriplegia Code(s): R53.2 - FUNCTIONAL QUADRIPLEGIA Assessment/Plan Acute on Chronic Hypoxic and Hypercapneic Respiratory Failure Acute COPD Exacerbation Atelectasis vs Pneumonia Anoxic Brain Injury HTN Functional Quadriplegia Suspect recurrent microaspiration - NC O2 as tolerated - NIPPV support as needed - Prednisone 40mg daily - inhaled bronchodilators - aspiration precautions - ABX per ID - DVT prophylaxis - DNR - replete kathe SUAREZ
[2018-07-02] MEDS: ATORVASTATIN CA 20 MG TABLET (FP) PO SCH (21:37)
[2018-07-02] MEDS: CALCIUM 500MG/VIT-D 200 UNITS COMBO TABLET (FP) GT SCH (21:37)
[2018-07-03] MEDS ORDERED: PIPERACILLIN/TAZOBACTAM 3.375 GM VIAL IVPB ONE ×3 (01:09→15:41)
[2018-07-03] MEDS ORDERED: DEXTROSE 5%-WATER - 50 ML IVPB ONE ×3 (01:09→15:42)
[2018-07-03] MEDS: PIPERACILLIN/TAZOB 3.375 GM 3.375 GM in DEXTROSE 5%-WATER - 50 ML IVPB SCH ×3 (01:50→17:36)
[2018-07-03] MEDS: LACTATED RINGERS SOLUTION 1,000 ML IV SCH ×2 (02:00→15:08)
[2018-07-03] MEDS: ZINC OXIDE 20% TOPICAL OINTMENT 30 GM TUBE TP SCH ×2 (06:12→15:27)
[2018-07-03 07:16] LABS: BASO % 0.5 % (0-2.0); EOS % 2.1 % (0-4.5); HEMOGLOBIN 12.6 GM/dL (10.7-15.3); LYMPH % 14.3 % (8-40); MCH 30.9 pg (25.7-33.7); MCHC 33.1 g/dl (32.0-36.0); MEAN CELL VOLUME 93.4 fl (80-96); MEAN PLT VOLUME 7.7 fl (7.5-11.1); MONO % 8.1 % (3.8-10.2); PLATELET COUNT 306 K/MM3 (134-434); RBC 4.07 M/mm3 (3.60-5.2); RDW 14.6 % (11.6-15.6)
[2018-07-03 07:34] LABS: ANION GAP 6 MMOL/L (8-16); BLOOD UREA NITROGEN 10 mg/dL (7-18); CALCIUM 8.6 mg/dL (8.5-10.1); CHLORIDE 104 mmol/L (98-107); CO2 32 mmol/L (21-32); CREATININE 0.2 mg/dL (0.55-1.3); GLUCOSE,RANDOM 75 mg/dL (74-106); MAGNESIUM 2.2 mg/dL (1.8-2.4); PHOSPHOROUS 2.3 mg/dL (2.5-4.9); POTASSIUM 3.4 mmol/L (3.5-5.1); SODIUM 142 mmol/L (136-145)
[2018-07-03] MEDS: BUDESONIDE 0.5 MG/2 ML INH SUSP VIAL NEB SCH ×2 (07:45→22:12)
[2018-07-03] MEDS: ARFORMOTEROL TARTRATE 15 MCG/2 ML VIAL NEB SCH ×2 (07:45→22:12)
[2018-07-03] MEDS ORDERED: POTASSIUM CHLORIDE ORAL LIQUID 20 MEQ/15 ML PO ONE (07:52)
[2018-07-03] MEDS ORDERED: NAPH,MB-DB/K PH,MBDB POWDER PACKET PO ONE ×2 (07:53→16:00)
[2018-07-03] MEDS: KCL 10 MEQ IVPB 10 MEQ/100 ML INFUS.BAG IVPB SCH ×3 (10:47→14:21)
[2018-07-03] MEDS: METOCLOPRAMIDE HCL 5 MG/5 ML UNIT DOSE CUP GT SCH ×4 (11:13→23:05)
[2018-07-03] MEDS: levETIRAcetam 500 MG/5 ML ORAL SOLUTION (UNIT-DOSE CUPS) GT SCH ×2 (11:14→23:08)
[2018-07-03] MEDS: METOPROLOL TARTRATE 50 MG TABLET (FP) GT SCH ×2 (11:16→23:04)
[2018-07-03] MEDS: predniSONE 20 MG TABLET (UD) PO SCH (11:16)
[2018-07-03] MEDS: LACTOBACILLUS ACIDOPHILUS 1 TABLET GT SCH ×2 (11:17→23:04)
[2018-07-03] MEDS: amLODIPine BESYLATE 2.5 MG TABLET (FP) GT SCH (11:17)
[2018-07-03] MEDS: MICONAZOLE NITRATE 28 GM TUBE TP SCH (11:25)
[2018-07-03] MEDS: ENOXAPARIN NA (PORCINE) 40 MG/0.4 ML DISP.SYRIN SQ SCH (11:47)
[2018-07-03] MEDS: VALPROATE SODIUM 250 MG/5 ML UNIT DOSE CUP GT SCH ×2 (11:50→23:05)
--- NOTE | 2018-07-03 12:05 | PN ---
Progress Note, Physician History of Present Illness: pulmonary awake,non-verbal on vm,-resp distress - Current Medication List Current Medications: Active Medications Amino Acids (Prosource No Carb Liquid Pkt) 30 ml GT DAILY [facility] Last Admin: 07/02/18 11:00 Dose: 30 ml Amlodipine Besylate (Norvasc -) 2.5 mg GT DAILY [facility] Last Admin: 07/02/18 11:00 Dose: 2.5 mg Arformoterol Tartrate (Brovana (Restricted To Pulmonology/Resp) -) 1 amp NEB RBID [facility] Last Admin: 07/03/18 07:45 Dose: 1 amp Ascorbic Acid (Vitamin C -) 500 mg GT BID [facility] Last Admin: 07/02/18 21:37 Dose: 500 mg Atorvastatin Calcium (Lipitor -) 20 mg PO HS [facility] Last Admin: 07/02/18 21:37 Dose: 20 mg Budesonide (Pulmicort 0.5 Mg Nebulizer -) 1 amp NEB RBID [facility] Last Admin: 07/03/18 07:45 Dose: 1 amp Calcium Carbonate/Cholecalciferol (Os-Jamar 500+D -) 2 tab GT HS [facility] Last Admin: 07/02/18 21:37 Dose: 2 tab Enoxaparin Sodium (Lovenox -) 40 mg SQ DAILY [facility] Last Admin: 07/02/18 11:01 Dose: 40 mg Lactated Ringer's (Lactated Ringers Solution) 1,000 mls @ 42 mls/hr IV ASDIR [facility] Last Admin: 07/03/18 02:00 Dose: 42 mls/hr Piperacillin Sod/Tazobactam (Sod 3.375 gm/ Dextrose) 50 mls @ 100 mls/hr IVPB Q8H-IV [facility]; Protocol Last Admin: 07/03/18 01:50 Dose: 100 mls/hr Lactobacillus Acidophilus (Bacid -) 1 tab GT BID [facility] Last Admin: 07/02/18 21:37 Dose: 1 tab Levetiracetam (Keppra Oral Solution -) 1,500 mg GT BID [facility] Last Admin: 07/02/18 21:39 Dose: 1,500 mg Metoclopramide HCl (Reglan Oral Solution -) 5 mg GT QID [facility] Last Admin: 07/02/18 21:37 Dose: 5 mg Metoprolol Tartrate (Lopressor Injection -) 5 mg IVPB Q4H PRN PRN Reason: HYPERTENSION Metoprolol Tartrate (Lopressor -) 50 mg GT BID [facility] Last Admin: 07/02/18 21:37 Dose: 50 mg Miconazole Nitrate (Miconazole Nitrate) 1 applic TP DAILY [facility] Last Admin: 07/02/18 13:17 Dose: 1 applic Multi-Ingredient Ointment (Zinc Oxide) 1 applic TP TID [facility] Last Admin: 07/03/18 06:12 Dose: 1 applic Non-Formulary Medication (Olopatadine Hcl [Pataday]) 2.5 ml OU DAILY [facility] Pantoprazole Sodium (Protonix -) 40 mg PO DAILY [facility] Last Admin: 07/02/18 11:00 Dose: 40 mg Phenobarbital (Phenobarbital -) 30 mg GT BID [facility] Last Admin: 07/02/18 21:37 Dose: 30 mg Prednisone (Deltasone -) 40 mg PO DAILY [facility] Last Admin: 07/02/18 10:59 Dose: 40 mg Ranitidine HCl (Zantac Oral Solution -) 150 mg GT BID [facility] Last Admin: 07/02/18 21:38 Dose: 150 mg Silver Sulfadiazine (Silvadene -) 1 applic TP DAILY [facility] Last Admin: 07/02/18 13:18 Dose: 1 applic Topiramate (Topamax -) 25 mg PO DAILY [facility] Last Admin: 07/02/18 11:02 Dose: 25 mg Topiramate (Topamax -) 200 mg GT BID [facility] Last Admin: 07/02/18 21:37 Dose: 200 mg Valproate Sodium (Depakene -) 750 mg GT BID [facility] Last Admin: 07/02/18 21:38 Dose: 750 mg - Objective Vital Signs: Vital Signs Temperature 98.8 F 07/03/18 06:39 Pulse Rate 68 07/03/18 06:39 Respiratory Rate 20 07/03/18 06:39 Blood Pressure 142/60 07/03/18 06:39 O2 Sat by Pulse Oximetry (%) 98 07/03/18 07:45 Constitutional: Yes: Well Nourished, Calm Eyes: Yes: WNL HENT: Yes: WNL Neck: Yes: WNL Cardiovascular: Yes: Regular Rate and Rhythm, S1, S2 Respiratory: Yes: Diminished Gastrointestinal: Yes: Normal Bowel Sounds, Soft Extremities: Yes: Shortened Edema: No Labs: CBC, BMP 07/03/18 06:20 07/03/18 06:20 Assessment/Plan Problem List - Problems (1) Acute on chronic respiratory failure with hypoxia and hypercapnia Code(s): J96.21 - ACUTE AND CHRONIC RESPIRATORY FAILURE WITH HYPOXIA; J96.22 - ACUTE AND CHRONIC RESPIRATORY FAILURE WITH HYPERCAPNIA (2) COPD exacerbation Code(s): J44.1 - CHRONIC OBSTRUCTIVE PULMONARY DISEASE W (ACUTE) EXACERBATION (3) Anoxic brain damage Code(s): G93.1 - ANOXIC BRAIN DAMAGE, NOT ELSEWHERE CLASSIFIED (4) Functional quadriplegia Code(s): R53.2 - FUNCTIONAL QUADRIPLEGIA Assessment/Plan Acute on Chronic Hypoxic and Hypercapneic Respiratory Failure improving Acute COPD Exacerbation Atelectasis vs Pneumonia Anoxic Brain Injury HTN Functional Quadriplegia Suspect recurrent microaspiration - NC O2 as tolerated - NIPPV support as needed - Prednisone 40mg daily - inhaled bronchodilators - aspiration precautions - ABX per ID - DVT prophylaxis - DNR DR SUAREZ
[2018-07-03] MEDS: SILVER SULFADIAZINE 1% TOP CREAM 50 GM JAR TP SCH (12:26)
[2018-07-03] MEDS ORDERED: PT OWN MED DRAWER 7, Y5N ONE (13:30)
--- NOTE | 2018-07-03 13:48 | PN ---
Progress Note, Physician History of Present Illness: stable improving still needing bipap more awake - Current Medication List Current Medications: Active Medications Amino Acids (Prosource No Carb Liquid Pkt) 30 ml GT DAILY [facility] Last Admin: 07/02/18 11:00 Dose: 30 ml Amlodipine Besylate (Norvasc -) 2.5 mg GT DAILY [facility] Last Admin: 07/02/18 11:00 Dose: 2.5 mg Arformoterol Tartrate (Brovana (Restricted To Pulmonology/Resp) -) 1 amp NEB RBID [facility] Last Admin: 07/03/18 07:45 Dose: 1 amp Ascorbic Acid (Vitamin C -) 500 mg GT BID [facility] Last Admin: 07/02/18 21:37 Dose: 500 mg Atorvastatin Calcium (Lipitor -) 20 mg PO HS [facility] Last Admin: 07/02/18 21:37 Dose: 20 mg Budesonide (Pulmicort 0.5 Mg Nebulizer -) 1 amp NEB RBID [facility] Last Admin: 07/03/18 07:45 Dose: 1 amp Calcium Carbonate/Cholecalciferol (Os-Jamar 500+D -) 2 tab GT HS [facility] Last Admin: 07/02/18 21:37 Dose: 2 tab Enoxaparin Sodium (Lovenox -) 40 mg SQ DAILY [facility] Last Admin: 07/02/18 11:01 Dose: 40 mg Lactated Ringer's (Lactated Ringers Solution) 1,000 mls @ 42 mls/hr IV ASDIR [facility] Last Admin: 07/03/18 02:00 Dose: 42 mls/hr Piperacillin Sod/Tazobactam (Sod 3.375 gm/ Dextrose) 50 mls @ 100 mls/hr IVPB Q8H-IV [facility]; Protocol Last Admin: 07/03/18 01:50 Dose: 100 mls/hr Lactobacillus Acidophilus (Bacid -) 1 tab GT BID [facility] Last Admin: 07/02/18 21:37 Dose: 1 tab Levetiracetam (Keppra Oral Solution -) 1,500 mg GT BID [facility] Last Admin: 07/02/18 21:39 Dose: 1,500 mg Metoclopramide HCl (Reglan Oral Solution -) 5 mg GT QID [facility] Last Admin: 07/02/18 21:37 Dose: 5 mg Metoprolol Tartrate (Lopressor Injection -) 5 mg IVPB Q4H PRN PRN Reason: HYPERTENSION Metoprolol Tartrate (Lopressor -) 50 mg GT BID [facility] Last Admin: 07/02/18 21:37 Dose: 50 mg Miconazole Nitrate (Miconazole Nitrate) 1 applic TP DAILY [facility] Last Admin: 07/02/18 13:17 Dose: 1 applic Multi-Ingredient Ointment (Zinc Oxide) 1 applic TP TID [facility] Last Admin: 07/03/18 06:12 Dose: 1 applic Non-Formulary Medication (Olopatadine Hcl [Pataday]) 2.5 ml OU DAILY [facility] Pantoprazole Sodium (Protonix -) 40 mg PO DAILY [facility] Last Admin: 07/02/18 11:00 Dose: 40 mg Phenobarbital (Phenobarbital -) 30 mg GT BID [facility] Last Admin: 07/02/18 21:37 Dose: 30 mg Prednisone (Deltasone -) 40 mg PO DAILY [facility] Last Admin: 07/02/18 10:59 Dose: 40 mg Ranitidine HCl (Zantac Oral Solution -) 150 mg GT BID [facility] Last Admin: 07/02/18 21:38 Dose: 150 mg Silver Sulfadiazine (Silvadene -) 1 applic TP DAILY [facility] Last Admin: 07/02/18 13:18 Dose: 1 applic Topiramate (Topamax -) 25 mg PO DAILY [facility] Last Admin: 07/02/18 11:02 Dose: 25 mg Topiramate (Topamax -) 200 mg GT BID [facility] Last Admin: 07/02/18 21:37 Dose: 200 mg Valproate Sodium (Depakene -) 750 mg GT BID [facility] Last Admin: 07/02/18 21:38 Dose: 750 mg - Objective Vital Signs: Vital Signs Temperature 98.8 F 07/03/18 06:39 Pulse Rate 68 07/03/18 06:39 Respiratory Rate 20 07/03/18 06:39 Blood Pressure 142/60 07/03/18 06:39 O2 Sat by Pulse Oximetry (%) 98 07/03/18 07:45 Constitutional: Yes: No Distress, Calm Cardiovascular: Yes: S1, S2 Respiratory: Yes: On BiPap Gastrointestinal: Yes: Normal Bowel Sounds, Soft Musculoskeletal: Yes: WNL Extremities: Yes: Other (contracted) Neurological: Yes: Alert Psychiatric: Yes: Alert Labs: CBC, BMP 07/03/18 06:20 07/03/18 06:20 Assessment/Plan Problem List - Problems (1) Acute on chronic respiratory failure with hypoxia and hypercapnia Code(s): J96.21 - ACUTE AND CHRONIC RESPIRATORY FAILURE WITH HYPOXIA; J96.22 - ACUTE AND CHRONIC RESPIRATORY FAILURE WITH HYPERCAPNIA (2) COPD exacerbation Code(s): J44.1 - CHRONIC OBSTRUCTIVE PULMONARY DISEASE W (ACUTE) EXACERBATION (3) Anoxic brain damage Code(s): G93.1 - ANOXIC BRAIN DAMAGE, NOT ELSEWHERE CLASSIFIED (4) Functional quadriplegia Code(s): R53.2 - FUNCTIONAL QUADRIPLEGIA Assessment/Plan Acute on Chronic Hypoxic and Hypercapneic Respiratory Failure Acute COPD Exacerbation Atelectasis vs Pneumonia Anoxic Brain Injury HTN Functional Quadriplegia Suspect recurrent microaspiration plan continue abx asp precautions resp support rest as per the team
[2018-07-03] MEDS: AMINO ACIDS/PROTEIN HYDROLYS 30 ML LIQUID.PKT GT SCH (14:47)
[2018-07-03] MEDS: RANITIDINE HCL 150 MG/10 ML UNIT-DOSE GT SCH ×2 (14:50→23:11)
[2018-07-03] MEDS: TOPIRAMATE 25 MG TABLET (FP) PO SCH (15:16)
[2018-07-03] MEDS: PHENobarbital 30 MG TABLET GT SCH ×2 (15:17→23:06)
[2018-07-03] MEDS: TOPIRAMATE 200 MG TABLET (FP) GT SCH ×2 (15:17→23:04)
[2018-07-03] MEDS: PANTOPRAZOLE 40 MG TABLET (FP) PO SCH (15:17)
[2018-07-03] MEDS: ASCORBIC ACID 500 MG TABLET (FP) GT SCH ×2 (15:18→23:09)
--- NOTE | 2018-07-03 15:25 | PN ---
Addendum entered and electronically signed by Melania Marin, RESIDENT 07/03/18 15:29: Additional Plan #Hypokalemia -Repleted this AM -Continue to monitor K+, Mag Original Note: Physical Exam: SUBJECTIVE: Patient seen and examined this AM. Tolerated Bipap overnight. No acute events overnight. OBJECTIVE: Vital Signs Period Temp Pulse Resp BP Sys/Restrepo Pulse Ox Last 24 Hr 97.9 F-98.8 F 68-89 20-22 142-152/60-81 97-99 GENERAL: NAD HEAD: Microcephaly EYES: PERRL ENT: Moist mucous membranes NECK: No JVD LUNGS: Diminished breath sounds at the bases, no wheezes, no crackles HEART: RRR, S1, S2 without murmur ABDOMEN: Soft, nondistended, + bowel sounds, GTube present without surrounding erythema or drainage EXTREMITIES: All extremities contracted, 1+ right pedal edema NEUROLOGICAL: Arousable SKIN: Warm, Dry Laboratory Results - last 24 hr 07/03/18 07/03/18 06:20 06:20 WBC 12.0 H RBC 4.07 Hgb 12.6 Hct 38.0 MCV 93.4 MCH 30.9 MCHC 33.1 RDW 14.6 Plt Count 306 MPV 7.7 Absolute Neuts (auto) 9.0 H Neutrophils % 75.0 Lymphocytes % 14.3 Monocytes % 8.1 Eosinophils % 2.1 D Basophils % 0.5 Nucleated RBC % 0 Sodium 142 Potassium 3.4 L Chloride 104 Carbon Dioxide 32 Anion Gap 6 L BUN 10 Creatinine 0.2 L Creat Clearance w eGFR 356.48 Random Glucose 75 Calcium 8.6 Phosphorus 2.3 L Magnesium 2.2 Microbiology 06/26/18 11:58 Blood - Peripheral Venous Blood Culture - Final NO GROWTH AFTER 5 DAYS INCUBATION 06/26/18 11:58 Blood - Peripheral Venous Blood Culture - Final NO GROWTH AFTER 5 DAYS INCUBATION Active Medications Amino Acids (Prosource No Carb Liquid Pkt) 30 ml GT DAILY [facility] Last Admin: 07/02/18 11:00 Dose: 30 ml Amlodipine Besylate (Norvasc -) 2.5 mg GT DAILY [facility] Last Admin: 07/02/18 11:00 Dose: 2.5 mg Arformoterol Tartrate (Brovana (Restricted To Pulmonology/Resp) -) 1 amp NEB RBID [facility] Last Admin: 07/03/18 07:45 Dose: 1 amp Ascorbic Acid (Vitamin C -) 500 mg GT BID [facility] Last Admin: 07/02/18 21:37 Dose: 500 mg Atorvastatin Calcium (Lipitor -) 20 mg PO HS [facility] Last Admin: 07/02/18 21:37 Dose: 20 mg Budesonide (Pulmicort 0.5 Mg Nebulizer -) 1 amp NEB RBID [facility] Last Admin: 07/03/18 07:45 Dose: 1 amp Calcium Carbonate/Cholecalciferol (Os-Jamar 500+D -) 2 tab GT HS [facility] Last Admin: 07/02/18 21:37 Dose: 2 tab Enoxaparin Sodium (Lovenox -) 40 mg SQ DAILY [facility] Last Admin: 07/02/18 11:01 Dose: 40 mg Lactated Ringer's (Lactated Ringers Solution) 1,000 mls @ 42 mls/hr IV ASDIR [facility] Last Admin: 07/03/18 02:00 Dose: 42 mls/hr Piperacillin Sod/Tazobactam (Sod 3.375 gm/ Dextrose) 50 mls @ 100 mls/hr IVPB Q8H-IV [facility]; Protocol Last Admin: 07/03/18 01:50 Dose: 100 mls/hr Lactobacillus Acidophilus (Bacid -) 1 tab GT BID [facility] Last Admin: 07/02/18 21:37 Dose: 1 tab Levetiracetam (Keppra Oral Solution -) 1,500 mg GT BID [facility] Last Admin: 07/02/18 21:39 Dose: 1,500 mg Metoclopramide HCl (Reglan Oral Solution -) 5 mg GT QID [facility] Last Admin: 07/02/18 21:37 Dose: 5 mg Metoprolol Tartrate (Lopressor Injection -) 5 mg IVPB Q4H PRN PRN Reason: HYPERTENSION Metoprolol Tartrate (Lopressor -) 50 mg GT BID [facility] Last Admin: 07/02/18 21:37 Dose: 50 mg Miconazole Nitrate (Miconazole Nitrate) 1 applic TP DAILY [facility] Last Admin: 07/02/18 13:17 Dose: 1 applic Multi-Ingredient Ointment (Zinc Oxide) 1 applic TP TID [facility] Last Admin: 07/03/18 06:12 Dose: 1 applic Non-Formulary Medication (Olopatadine Hcl [Pataday]) 2.5 ml OU DAILY [facility] Pantoprazole Sodium (Protonix -) 40 mg PO DAILY [facility] Last Admin: 07/02/18 11:00 Dose: 40 mg Phenobarbital (Phenobarbital -) 30 mg GT BID [facility] Last Admin: 07/02/18 21:37 Dose: 30 mg Prednisone (Deltasone -) 40 mg PO DAILY [facility] Last Admin: 07/02/18 10:59 Dose: 40 mg Ranitidine HCl (Zantac Oral Solution -) 150 mg GT BID [facility] Last Admin: 07/02/18 21:38 Dose: 150 mg Silver Sulfadiazine (Silvadene -) 1 applic TP DAILY [facility] Last Admin: 07/02/18 13:18 Dose: 1 applic Topiramate (Topamax -) 25 mg PO DAILY [facility] Last Admin: 07/02/18 11:02 Dose: 25 mg Topiramate (Topamax -) 200 mg GT BID [facility] Last Admin: 07/02/18 21:37 Dose: 200 mg Valproate Sodium (Depakene -) 750 mg GT BID [facility] Last Admin: 07/02/18 21:38 Dose: 750 mg IMAGING: -CXR: Levoscoliosis of the spine. No airspace opacities are seen in the visualized left lung. Elevated right diaphragm. No airspace opacities are seen in the right upper lung zone. No pneumothorax is seen. -CXR: Portion of the left lung is obscured by the thoracic spine. No airspace opacities are seen in the visualized lungs. No pneumothorax, or large pleural effusion is seen. Unable to evaluate adequately the cardiac silhouette. Old healed fracture proximal left humerus. -Chest CTA: No definite CT evidence of pulmonary embolism. Evaluation of the lower lobe subsegmental vessels is somewhat limited due to vessel crowding. Bilateral wedge-shaped lower lobe opacities are noted posteriorly consistent with atelectasis and/or infiltrates. Very small left-sided and trace right- sided pleural effusions are seen. -EKG: SINUS RHYTHM WITH SHORT CA, VR 100, QTc 397 ASSESSMENT/PLAN: 67 y/o non-verbal Female with PMHx of anoxic brain injury, COPD (on 4L at home) , seizures, who was recently discharged from [facility] for Sepsis due to Pseudomonas UTI, presents from [facility] with Respiratory Distress. #Acute Hypercapneic Respiratory Failure -Unclear etiology; Still consider micro aspirations -Tolerating Ventimask; Supplemental O2 to maintain SpO2 88-92% -Bilevel HS (15/5/12/40%) -Piperacillin/Tazobactam 3.375 Q6H (ABx course started on 06/26) -Prednisone 40mg PO Daily -Albuterol KELL Q6H PRN -ID (Dr. Hickey), Pulmonary (Dr. Gann) consulted, appreciate rec's -Keep HOB elevated -Aspiration precautions #GTube dislodged -GI Consulted, Appreciate rec's -Resume tube feeds #Hypertension -Metoprolol Tartrate 50mg GT BID, Amlodipine to 5mg GT Daily #HLD -Atorvastatin 20mg GT HS #GERD -Metoclopramide, Pantoprazole #Seizures -Levetiracetam, Valproate, Topiramate, Phenobarbital #FEN -LR @ 42 -Monitor lytes -Resume Vital Tube feeds #PPx -DVT: Lovenox -GI: PPI Code status: DNR Visit type - Emergency Visit Emergency Visit: Yes ED Registration Date: 06/26/18 Care time: The patient presented to the Emergency Department on the above date and was hospitalized for further evaluation of their emergent condition. - New Patient This patient is new to me today: No - Critical Care Critical Care patient: No - Discharge Referral Referred to [facility] Med P.C.: No
[2018-07-03] MEDS ORDERED: KCL 10 MEQ IVPB 10 MEQ/100 ML INFUS.BAG IVPB SCH (16:00)
--- NOTE | 2018-07-03 17:59 | PN ---
Teaching Attending Note Name of Resident: Melania Marin ATTENDING PHYSICIAN STATEMENT I saw and evaluated the patient. I reviewed the resident's note and discussed the case with the resident. I agree with the resident's findings and plan as documented. SUBJECTIVE: No events over night OBJECTIVE: NAD, comfortable. venti mask on CV : RRR Lungs: CTAB anteriorly Ext : No edema , + muscular atrophy ASSESSMENT AND PLAN: 67 y/o lady with h/o anoxic brain injury, seizures, HLP, HTN, GT placement, and COPD who presented with Hypoxia 1- Acute hypoxic , hypercapnic resp failure, due to Acute COPD exacerbation. Possible continued aspiration - cont prednisone . - BIPAP q HS. - nebs - zosyn fro possible aspiration PNA, can probably be stopped tomorrow . d/w ID 2- Seizure disorder : cont her home meds 3- HTN: cont meds 4- Nutrition : stop IVF , resume TF with jevity Dispo : awaiting trilogy machine to be delivered to [place] as BIPAP can't be used there. Hopefully dc tomorrow .
[2018-07-03] MEDS: ATORVASTATIN CA 20 MG TABLET (FP) PO SCH (23:04)
[2018-07-03] MEDS: CALCIUM 500MG/VIT-D 200 UNITS COMBO TABLET (FP) GT SCH (23:05)
[2018-07-04] MEDS ORDERED: PIPERACILLIN/TAZOBACTAM 3.375 GM VIAL IVPB ONE ×3 (01:52→17:35)
[2018-07-04] MEDS ORDERED: DEXTROSE 5%-WATER - 50 ML IVPB ONE ×3 (01:52→17:35)
[2018-07-04] MEDS: PIPERACILLIN/TAZOB 3.375 GM 3.375 GM in DEXTROSE 5%-WATER - 50 ML IVPB SCH ×3 (02:14→17:56)
[2018-07-04] MEDS: ZINC OXIDE 20% TOPICAL OINTMENT 30 GM TUBE TP SCH ×3 (06:04→22:25)
[2018-07-04] MEDS: ARFORMOTEROL TARTRATE 15 MCG/2 ML VIAL NEB SCH ×2 (07:43→20:21)
[2018-07-04] MEDS: BUDESONIDE 0.5 MG/2 ML INH SUSP VIAL NEB SCH ×2 (07:43→20:22)
[2018-07-04 08:16] LABS: ANION GAP 6 MMOL/L (8-16); BLOOD UREA NITROGEN 5 mg/dL (7-18); CALCIUM 8.5 mg/dL (8.5-10.1); CHLORIDE 103 mmol/L (98-107); CO2 32 mmol/L (21-32); CREATININE 0.2 mg/dL (0.55-1.3); GLUCOSE,RANDOM 67 mg/dL (74-106); PHOSPHOROUS 3.1 mg/dL (2.5-4.9); POTASSIUM 3.8 mmol/L (3.5-5.1); SODIUM 141 mmol/L (136-145)
[2018-07-04] MEDS: LACTOBACILLUS ACIDOPHILUS 1 TABLET GT SCH ×2 (10:23→22:02)
[2018-07-04] MEDS: amLODIPine BESYLATE 2.5 MG TABLET (FP) GT SCH (10:23)
[2018-07-04] MEDS: METOPROLOL TARTRATE 50 MG TABLET (FP) GT SCH ×2 (10:23→22:04)
[2018-07-04] MEDS: PHENobarbital 30 MG TABLET GT SCH ×2 (10:23→22:04)
[2018-07-04] MEDS: TOPIRAMATE 25 MG TABLET (FP) PO SCH (10:23)
[2018-07-04] MEDS: METOCLOPRAMIDE HCL 5 MG/5 ML UNIT DOSE CUP GT SCH ×4 (10:23→22:04)
[2018-07-04] MEDS: predniSONE 20 MG TABLET (UD) PO SCH (10:23)
[2018-07-04] MEDS: PANTOPRAZOLE 40 MG TABLET (FP) PO SCH (10:23)
[2018-07-04] MEDS: ASCORBIC ACID 500 MG TABLET (FP) GT SCH ×2 (10:23→22:04)
[2018-07-04] MEDS: levETIRAcetam 500 MG/5 ML ORAL SOLUTION (UNIT-DOSE CUPS) GT SCH ×2 (10:24→22:03)
[2018-07-04] MEDS: VALPROATE SODIUM 250 MG/5 ML UNIT DOSE CUP GT SCH ×2 (10:24→22:03)
[2018-07-04] MEDS: ENOXAPARIN NA (PORCINE) 40 MG/0.4 ML DISP.SYRIN SQ SCH (10:24)
[2018-07-04] MEDS: TOPIRAMATE 200 MG TABLET (FP) GT SCH ×2 (10:24→22:04)
[2018-07-04] MEDS ORDERED: PT OWN MED DRAWER 7, Y5N ONE (10:36)
[2018-07-04] MEDS: AMINO ACIDS/PROTEIN HYDROLYS 30 ML LIQUID.PKT GT SCH (10:50)
[2018-07-04] MEDS: SILVER SULFADIAZINE 1% TOP CREAM 50 GM JAR TP SCH (10:55)
[2018-07-04] MEDS: MICONAZOLE NITRATE 28 GM TUBE TP SCH (10:55)
[2018-07-04] MEDS: RANITIDINE HCL 150 MG/10 ML UNIT-DOSE GT SCH (10:56)
--- NOTE | 2018-07-04 13:06 | PN ---
Progress Note, Physician History of Present Illness: stable awake breathing easily on nasal canula - Current Medication List Current Medications: Active Medications Amino Acids (Prosource No Carb Liquid Pkt) 30 ml GT DAILY [facility] Last Admin: 07/03/18 14:47 Dose: 30 ml Amlodipine Besylate (Norvasc -) 2.5 mg GT DAILY [facility] Last Admin: 07/04/18 10:23 Dose: 2.5 mg Arformoterol Tartrate (Brovana (Restricted To Pulmonology/Resp) -) 1 amp NEB RBID [facility] Last Admin: 07/04/18 07:43 Dose: 1 amp Ascorbic Acid (Vitamin C -) 500 mg GT BID [facility] Last Admin: 07/04/18 10:23 Dose: 500 mg Atorvastatin Calcium (Lipitor -) 20 mg PO HS [facility] Last Admin: 07/03/18 23:04 Dose: 20 mg Budesonide (Pulmicort 0.5 Mg Nebulizer -) 1 amp NEB RBID [facility] Last Admin: 07/04/18 07:43 Dose: 1 amp Calcium Carbonate/Cholecalciferol (Os-Jamar 500+D -) 2 tab GT HS [facility] Last Admin: 07/03/18 23:05 Dose: 2 tab Enoxaparin Sodium (Lovenox -) 40 mg SQ DAILY [facility] Last Admin: 07/04/18 10:24 Dose: 40 mg Piperacillin Sod/Tazobactam (Sod 3.375 gm/ Dextrose) 50 mls @ 100 mls/hr IVPB Q8H-IV [facility]; Protocol Last Admin: 07/04/18 10:24 Dose: 100 mls/hr Lactobacillus Acidophilus (Bacid -) 1 tab GT BID [facility] Last Admin: 07/04/18 10:23 Dose: 1 tab Levetiracetam (Keppra Oral Solution -) 1,500 mg GT BID [facility] Last Admin: 07/04/18 10:24 Dose: 1,500 mg Metoclopramide HCl (Reglan Oral Solution -) 5 mg GT QID [facility] Last Admin: 07/04/18 10:23 Dose: 5 mg Metoprolol Tartrate (Lopressor Injection -) 5 mg IVPB Q4H PRN PRN Reason: HYPERTENSION Metoprolol Tartrate (Lopressor -) 50 mg GT BID [facility] Last Admin: 07/04/18 10:23 Dose: 50 mg Miconazole Nitrate (Miconazole Nitrate) 1 applic TP DAILY [facility] Last Admin: 07/04/18 10:55 Dose: 1 applic Multi-Ingredient Ointment (Zinc Oxide) 1 applic TP TID [facility] Last Admin: 07/04/18 06:04 Dose: 1 applic Pantoprazole Sodium (Protonix -) 40 mg PO DAILY [facility] Last Admin: 07/04/18 10:23 Dose: 40 mg Phenobarbital (Phenobarbital -) 30 mg GT BID [facility] Last Admin: 07/04/18 10:23 Dose: 30 mg Prednisone (Deltasone -) 40 mg PO DAILY [facility] Last Admin: 07/04/18 10:23 Dose: 40 mg Ranitidine HCl (Zantac Oral Solution -) 150 mg GT BID [facility] Last Admin: 07/04/18 10:56 Dose: 150 mg Silver Sulfadiazine (Silvadene -) 1 applic TP DAILY [facility] Last Admin: 07/04/18 10:55 Dose: 1 applic Topiramate (Topamax -) 25 mg PO DAILY [facility] Last Admin: 07/04/18 10:23 Dose: 25 mg Topiramate (Topamax -) 200 mg GT BID [facility] Last Admin: 07/04/18 10:24 Dose: 200 mg Valproate Sodium (Depakene -) 750 mg GT BID [facility] Last Admin: 07/04/18 10:24 Dose: 750 mg - Objective Vital Signs: Vital Signs Temperature 97 F L 07/04/18 11:00 Pulse Rate 93 H 07/04/18 11:00 Respiratory Rate 20 07/04/18 11:00 Blood Pressure 130/62 07/04/18 11:00 O2 Sat by Pulse Oximetry (%) 95 07/04/18 11:11 Constitutional: Yes: No Distress, Calm Cardiovascular: Yes: Regular Rate and Rhythm Respiratory: Yes: Regular, On Nasal O2, Poor Air Entry Gastrointestinal: Yes: Normal Bowel Sounds, Soft Musculoskeletal: Yes: WNL Extremities: Yes: Other (contracted) Neurological: Yes: Alert Psychiatric: Yes: Alert Labs: CBC, BMP 07/03/18 06:20 07/04/18 05:15 Assessment/Plan Problem List - Problems (1) Acute on chronic respiratory failure with hypoxia and hypercapnia Code(s): J96.21 - ACUTE AND CHRONIC RESPIRATORY FAILURE WITH HYPOXIA; J96.22 - ACUTE AND CHRONIC RESPIRATORY FAILURE WITH HYPERCAPNIA (2) COPD exacerbation Code(s): J44.1 - CHRONIC OBSTRUCTIVE PULMONARY DISEASE W (ACUTE) EXACERBATION (3) Anoxic brain damage Code(s): G93.1 - ANOXIC BRAIN DAMAGE, NOT ELSEWHERE CLASSIFIED (4) Functional quadriplegia Code(s): R53.2 - FUNCTIONAL QUADRIPLEGIA Assessment/Plan Acute on Chronic Hypoxic and Hypercapneic Respiratory Failure Acute COPD Exacerbation Atelectasis vs Pneumonia Anoxic Brain Injury HTN Functional Quadriplegia Suspect recurrent microaspiration plan stop abx resp support rest as per the team
--- NOTE | 2018-07-04 14:09 | PN ---
Physical Exam: SUBJECTIVE: Patient seen and examined this AM. No acute events overnight. OBJECTIVE: Vital Signs Period Temp Pulse Resp BP Sys/Restrepo Pulse Ox Last 24 Hr 97 F-98.0 F 71-93 20-22 130-150/62-83 95-98 GENERAL: NAD HEAD: Microcephaly EYES: PERRL ENT: Moist mucous membranes NECK: No JVD LUNGS: Diminished breath sounds at the bases, no wheezes, no crackles HEART: RRR, S1, S2 without murmur ABDOMEN: Soft, nondistended, + bowel sounds, GTube present without surrounding erythema or drainage EXTREMITIES: All extremities contracted, 1+ right pedal edema NEUROLOGICAL: Arousable SKIN: Warm, Dry Laboratory Results - last 24 hr 07/04/18 05:15 Sodium 141 Potassium 3.8 Chloride 103 Carbon Dioxide 32 Anion Gap 6 L BUN 5 L Creatinine 0.2 L Creat Clearance w eGFR 356.48 Random Glucose 67 L Calcium 8.5 Phosphorus 3.1 Magnesium 2.0 Microbiology 06/26/18 11:58 Blood - Peripheral Venous Blood Culture - Final NO GROWTH AFTER 5 DAYS INCUBATION 06/26/18 11:58 Blood - Peripheral Venous Blood Culture - Final NO GROWTH AFTER 5 DAYS INCUBATION Active Medications Amino Acids (Prosource No Carb Liquid Pkt) 30 ml GT DAILY [facility] Last Admin: 07/03/18 14:47 Dose: 30 ml Amlodipine Besylate (Norvasc -) 2.5 mg GT DAILY [facility] Last Admin: 07/04/18 10:23 Dose: 2.5 mg Arformoterol Tartrate (Brovana (Restricted To Pulmonology/Resp) -) 1 amp NEB RBID [facility] Last Admin: 07/04/18 07:43 Dose: 1 amp Ascorbic Acid (Vitamin C -) 500 mg GT BID [facility] Last Admin: 07/04/18 10:23 Dose: 500 mg Atorvastatin Calcium (Lipitor -) 20 mg PO HS [facility] Last Admin: 07/03/18 23:04 Dose: 20 mg Budesonide (Pulmicort 0.5 Mg Nebulizer -) 1 amp NEB RBID [facility] Last Admin: 07/04/18 07:43 Dose: 1 amp Calcium Carbonate/Cholecalciferol (Os-Jamar 500+D -) 2 tab GT HS [facility] Last Admin: 07/03/18 23:05 Dose: 2 tab Enoxaparin Sodium (Lovenox -) 40 mg SQ DAILY [facility] Last Admin: 07/04/18 10:24 Dose: 40 mg Piperacillin Sod/Tazobactam (Sod 3.375 gm/ Dextrose) 50 mls @ 100 mls/hr IVPB Q8H-IV [facility]; Protocol Last Admin: 07/04/18 10:24 Dose: 100 mls/hr Lactobacillus Acidophilus (Bacid -) 1 tab GT BID [facility] Last Admin: 07/04/18 10:23 Dose: 1 tab Levetiracetam (Keppra Oral Solution -) 1,500 mg GT BID [facility] Last Admin: 07/04/18 10:24 Dose: 1,500 mg Metoclopramide HCl (Reglan Oral Solution -) 5 mg GT QID [facility] Last Admin: 07/04/18 10:23 Dose: 5 mg Metoprolol Tartrate (Lopressor Injection -) 5 mg IVPB Q4H PRN PRN Reason: HYPERTENSION Metoprolol Tartrate (Lopressor -) 50 mg GT BID [facility] Last Admin: 07/04/18 10:23 Dose: 50 mg Miconazole Nitrate (Miconazole Nitrate) 1 applic TP DAILY [facility] Last Admin: 07/04/18 10:55 Dose: 1 applic Multi-Ingredient Ointment (Zinc Oxide) 1 applic TP TID [facility] Last Admin: 07/04/18 06:04 Dose: 1 applic Pantoprazole Sodium (Protonix -) 40 mg PO DAILY [facility] Last Admin: 07/04/18 10:23 Dose: 40 mg Phenobarbital (Phenobarbital -) 30 mg GT BID [facility] Last Admin: 07/04/18 10:23 Dose: 30 mg Prednisone (Deltasone -) 40 mg PO DAILY [facility] Last Admin: 07/04/18 10:23 Dose: 40 mg Ranitidine HCl (Zantac Oral Solution -) 150 mg GT BID [facility] Last Admin: 07/04/18 10:56 Dose: 150 mg Silver Sulfadiazine (Silvadene -) 1 applic TP DAILY [facility] Last Admin: 07/04/18 10:55 Dose: 1 applic Topiramate (Topamax -) 25 mg PO DAILY [facility] Last Admin: 07/04/18 10:23 Dose: 25 mg Topiramate (Topamax -) 200 mg GT BID [facility] Last Admin: 07/04/18 10:24 Dose: 200 mg Valproate Sodium (Depakene -) 750 mg GT BID [facility] Last Admin: 07/04/18 10:24 Dose: 750 mg IMAGING: -CXR: Levoscoliosis of the spine. No airspace opacities are seen in the visualized left lung. Elevated right diaphragm. No airspace opacities are seen in the right upper lung zone. No pneumothorax is seen. -CXR: Portion of the left lung is obscured by the thoracic spine. No airspace opacities are seen in the visualized lungs. No pneumothorax, or large pleural effusion is seen. Unable to evaluate adequately the cardiac silhouette. Old healed fracture proximal left humerus. -Chest CTA: No definite CT evidence of pulmonary embolism. Evaluation of the lower lobe subsegmental vessels is somewhat limited due to vessel crowding. Bilateral wedge-shaped lower lobe opacities are noted posteriorly consistent with atelectasis and/or infiltrates. Very small left-sided and trace right- sided pleural effusions are seen. -EKG: SINUS RHYTHM WITH SHORT IL, VR 100, QTc 397 ASSESSMENT/PLAN: 67 y/o non-verbal Female with PMHx of anoxic brain injury, COPD (on 4L at home) , seizures, who was recently discharged from [facility] for Sepsis due to Pseudomonas UTI, presents from [facility] with Respiratory Distress. #Acute Hypercapneic Respiratory Failure -Unclear etiology; Still consider micro aspirations -Completed ABx course -Tolerating Ventimask; Supplemental O2 to maintain SpO2 88-92% -Bilevel HS (15//40%) -Prednisone 40mg PO Daily -Albuterol KELL Q6H PRN -Keep HOB elevated -Aspiration precautions #GTube dislodged--Now functional -Resume tube feeds #Hypertension -Metoprolol Tartrate 50mg GT BID, Amlodipine to 5mg GT Daily #HLD -Atorvastatin 20mg GT HS #GERD -Metoclopramide, Pantoprazole #Seizures -Levetiracetam, Valproate, Topiramate, Phenobarbital #FEN -No standing fluids -Monitor lytes -Resume Vital Tube feeds #PPx -DVT: Lovenox -GI: PPI Code status: DNR Visit type - Emergency Visit Emergency Visit: Yes ED Registration Date: 06/26/18 Care time: The patient presented to the Emergency Department on the above date and was hospitalized for further evaluation of their emergent condition. - New Patient This patient is new to me today: No - Critical Care Critical Care patient: No - Discharge Referral Referred to [facility] Med [facility].: No
--- NOTE | 2018-07-04 14:23 | PN ---
Progress Note, Physician History of Present Illness: PULMONARY SLEEPING ON NASAL O2,-RESP DISTRESS - Current Medication List Current Medications: Active Medications Amino Acids (Prosource No Carb Liquid Pkt) 30 ml GT DAILY [facility] Last Admin: 07/03/18 14:47 Dose: 30 ml Amlodipine Besylate (Norvasc -) 2.5 mg GT DAILY [facility] Last Admin: 07/04/18 10:23 Dose: 2.5 mg Arformoterol Tartrate (Brovana (Restricted To Pulmonology/Resp) -) 1 amp NEB RBID [facility] Last Admin: 07/04/18 07:43 Dose: 1 amp Ascorbic Acid (Vitamin C -) 500 mg GT BID [facility] Last Admin: 07/04/18 10:23 Dose: 500 mg Atorvastatin Calcium (Lipitor -) 20 mg PO HS [facility] Last Admin: 07/03/18 23:04 Dose: 20 mg Budesonide (Pulmicort 0.5 Mg Nebulizer -) 1 amp NEB RBID [facility] Last Admin: 07/04/18 07:43 Dose: 1 amp Calcium Carbonate/Cholecalciferol (Os-Jamar 500+D -) 2 tab GT HS [facility] Last Admin: 07/03/18 23:05 Dose: 2 tab Enoxaparin Sodium (Lovenox -) 40 mg SQ DAILY [facility] Last Admin: 07/04/18 10:24 Dose: 40 mg Piperacillin Sod/Tazobactam (Sod 3.375 gm/ Dextrose) 50 mls @ 100 mls/hr IVPB Q8H-IV [facility]; Protocol Last Admin: 07/04/18 10:24 Dose: 100 mls/hr Lactobacillus Acidophilus (Bacid -) 1 tab GT BID [facility] Last Admin: 07/04/18 10:23 Dose: 1 tab Levetiracetam (Keppra Oral Solution -) 1,500 mg GT BID [facility] Last Admin: 07/04/18 10:24 Dose: 1,500 mg Metoclopramide HCl (Reglan Oral Solution -) 5 mg GT QID [facility] Last Admin: 07/04/18 10:23 Dose: 5 mg Metoprolol Tartrate (Lopressor Injection -) 5 mg IVPB Q4H PRN PRN Reason: HYPERTENSION Metoprolol Tartrate (Lopressor -) 50 mg GT BID [facility] Last Admin: 07/04/18 10:23 Dose: 50 mg Miconazole Nitrate (Miconazole Nitrate) 1 applic TP DAILY [facility] Last Admin: 07/04/18 10:55 Dose: 1 applic Multi-Ingredient Ointment (Zinc Oxide) 1 applic TP TID [facility] Last Admin: 07/04/18 06:04 Dose: 1 applic Pantoprazole Sodium (Protonix -) 40 mg PO DAILY [facility] Last Admin: 07/04/18 10:23 Dose: 40 mg Phenobarbital (Phenobarbital -) 30 mg GT BID [facility] Last Admin: 07/04/18 10:23 Dose: 30 mg Prednisone (Deltasone -) 40 mg PO DAILY [facility] Last Admin: 07/04/18 10:23 Dose: 40 mg Ranitidine HCl (Zantac Oral Solution -) 150 mg GT BID [facility] Last Admin: 07/04/18 10:56 Dose: 150 mg Silver Sulfadiazine (Silvadene -) 1 applic TP DAILY [facility] Last Admin: 07/04/18 10:55 Dose: 1 applic Topiramate (Topamax -) 25 mg PO DAILY [facility] Last Admin: 07/04/18 10:23 Dose: 25 mg Topiramate (Topamax -) 200 mg GT BID [facility] Last Admin: 07/04/18 10:24 Dose: 200 mg Valproate Sodium (Depakene -) 750 mg GT BID [facility] Last Admin: 07/04/18 10:24 Dose: 750 mg - Objective Vital Signs: Vital Signs Temperature 97 F L 07/04/18 11:00 Pulse Rate 93 H 07/04/18 11:00 Respiratory Rate 20 07/04/18 11:00 Blood Pressure 130/62 07/04/18 11:00 O2 Sat by Pulse Oximetry (%) 95 07/04/18 11:11 Constitutional: Yes: Thin, Other (SLEEEPING) Eyes: Yes: WNL HENT: Yes: WNL Neck: Yes: WNL Cardiovascular: Yes: Regular Rate and Rhythm, S1, S2 Respiratory: Yes: Diminished Gastrointestinal: Yes: Normal Bowel Sounds, Soft Extremities: Yes: Shortened Edema: No Labs: CBC, BMP 07/04/18 05:15 Assessment/Plan Problem List - Problems (1) Acute on chronic respiratory failure with hypoxia and hypercapnia Code(s): J96.21 - ACUTE AND CHRONIC RESPIRATORY FAILURE WITH HYPOXIA; J96.22 - ACUTE AND CHRONIC RESPIRATORY FAILURE WITH HYPERCAPNIA (2) COPD exacerbation Code(s): J44.1 - CHRONIC OBSTRUCTIVE PULMONARY DISEASE W (ACUTE) EXACERBATION (3) Anoxic brain damage Code(s): G93.1 - ANOXIC BRAIN DAMAGE, NOT ELSEWHERE CLASSIFIED (4) Functional quadriplegia Code(s): R53.2 - FUNCTIONAL QUADRIPLEGIA Assessment/Plan Acute on Chronic Hypoxic and Hypercapneic Respiratory Failure improving Acute COPD Exacerbation Atelectasis vs Pneumonia Anoxic Brain Injury HTN Functional Quadriplegia Suspect recurrent microaspiration - NC O2 as tolerated - NIPPV support as needed - Prednisone 40mg daily - inhaled bronchodilators - aspiration precautions - ABX per ID - DVT prophylaxis - DNR DR SUAREZ
--- NOTE | 2018-07-04 16:31 | PN ---
Teaching Attending Note Name of Resident: Melania Marin ATTENDING PHYSICIAN STATEMENT I saw and evaluated the patient. I reviewed the resident's note and discussed the case with the resident. I agree with the resident's findings and plan as documented. SUBJECTIVE: Seen and examined at bedside, status unchanged, no acute events overnight OBJECTIVE: Vital Signs Period Temp Pulse Resp BP Sys/Restrepo Pulse Ox Last 24 Hr 97 F-98.0 F 71-93 20-22 130-150/62-83 94-98 Current Medications Generic Name Dose Route Start Last Admin Trade Name Freq PRN Reason Stop Dose Admin Amino Acids 30 ml 06/27/18 10:00 07/04/18 10:50 Prosource No Carb Liquid Pkt GT 30 ml DAILY [facility] Administration Amlodipine Besylate 2.5 mg 06/27/18 10:00 07/04/18 10:23 Norvasc - GT 2.5 mg DAILY [facility] Administration Arformoterol Tartrate 1 amp 06/26/18 20:00 07/04/18 07:43 Brovana (Restricted To Pulmonology/Resp) - NEB 1 amp RBID [facility] Administration Ascorbic Acid 500 mg 06/26/18 22:00 07/04/18 10:23 Vitamin C - GT 500 mg BID [facility] Administration Atorvastatin Calcium 20 mg 06/26/18 22:00 07/03/18 23:04 Lipitor - PO 20 mg HS [facility] Administration Budesonide 1 amp 06/26/18 20:00 07/04/18 07:43 Pulmicort 0.5 Mg Nebulizer - NEB 1 amp RBID [facility] Administration Calcium Carbonate/Cholecalciferol 2 tab 06/26/18 22:00 07/03/18 23:05 Os-Jamar 500+D - GT 2 tab HS [facility] Administration Enoxaparin Sodium 40 mg 06/26/18 15:00 07/04/18 10:24 Lovenox - SQ 40 mg DAILY [facility] Administration Piperacillin Sod/Tazobactam 50 mls @ 100 mls/hr 06/30/18 18:00 07/04/18 10:24 Sod 3.375 gm/ Dextrose IVPB 100 mls/hr Q8H-IV [facility] Administration Protocol Lactobacillus Acidophilus 1 tab 06/26/18 22:00 07/04/18 10:23 Bacid - GT 1 tab BID [facility] Administration Levetiracetam 1,500 mg 06/26/18 22:00 07/04/18 10:24 Keppra Oral Solution - GT 1,500 mg BID [facility] Administration Metoclopramide HCl 5 mg 06/26/18 18:00 07/04/18 14:55 Reglan Oral Solution - GT 5 mg QID [facility] Administration Metoprolol Tartrate 5 mg 06/27/18 08:14 Lopressor Injection - IVPB Q4H PRN HYPERTENSION Metoprolol Tartrate 50 mg 07/01/18 22:00 07/04/18 10:23 Lopressor - GT 50 mg BID [facility] Administration Miconazole Nitrate 1 applic 06/30/18 18:15 07/04/18 10:55 Miconazole Nitrate TP 1 applic DAILY [facility] Administration Multi-Ingredient Ointment 1 applic 06/26/18 22:00 07/04/18 06:04 Zinc Oxide TP 1 applic TID [facility] Administration Pantoprazole Sodium 40 mg 06/26/18 15:00 07/04/18 10:23 Protonix - PO 40 mg DAILY [facility] Administration Phenobarbital 30 mg 06/26/18 22:00 07/04/18 10:23 Phenobarbital - GT 30 mg BID [facility] Administration Prednisone 40 mg 06/27/18 18:00 07/04/18 10:23 Deltasone - PO 40 mg DAILY [facility] Administration Ranitidine HCl 150 mg 06/26/18 22:00 07/04/18 10:56 Zantac Oral Solution - GT 150 mg BID [facility] Administration Silver Sulfadiazine 1 applic 06/27/18 10:00 07/04/18 10:55 Silvadene - TP 1 applic DAILY [facility] Administration Topiramate 25 mg 06/27/18 10:00 07/04/18 10:23 Topamax - PO 25 mg DAILY [facility] Administration Topiramate 200 mg 06/26/18 22:00 07/04/18 10:24 Topamax - GT 200 mg BID [facility] Administration Valproate Sodium 750 mg 06/26/18 22:00 07/04/18 10:24 Depakene - GT 750 mg BID [facility] Administration Laboratory Last Values WBC 12.0 K/mm3 (4.0-10.0) H 07/03/18 06:20 RBC 4.07 M/mm3 (3.60-5.2) 07/03/18 06:20 Hgb 12.6 GM/dL (10.7-15.3) 07/03/18 06:20 Hct 38.0 % (32.4-45.2) 07/03/18 06:20 MCV 93.4 fl (80-96) 07/03/18 06:20 MCH 30.9 pg (25.7-33.7) 07/03/18 06:20 MCHC 33.1 g/dl (32.0-36.0) 07/03/18 06:20 RDW 14.6 % (11.6-15.6) 07/03/18 06:20 Plt Count 306 K/MM3 (134-434) 07/03/18 06:20 MPV 7.7 fl (7.5-11.1) 07/03/18 06:20 Absolute Neuts (auto) 9.0 K/mm3 (1.5-8.0) H 07/03/18 06:20 Neutrophils % 75.0 % (42.8-82.8) 07/03/18 06:20 Lymphocytes % 14.3 % (8-40) 07/03/18 06:20 Monocytes % 8.1 % (3.8-10.2) 07/03/18 06:20 Eosinophils % 2.1 % (0-4.5) D 07/03/18 06:20 Basophils % 0.5 % (0-2.0) 07/03/18 06:20 Nucleated RBC % 0 % (0-0) 07/03/18 06:20 Anticoagulation Therapy No Result Required. 07/02/18 09:45 Puncture Site Left radial 07/02/18 09:45 ABG pH 7.36 (7.35-7.45) 07/02/18 09:45 ABG pCO2 at Pt Temp 63.7 mmHg (35-45) H 07/02/18 09:45 ABG pO2 at Pt Temp 140 mmHg (80-105) H 07/02/18 09:45 ABG HCO3 35.4 mmol/L (22-27) H 07/02/18 09:45 ABG O2 Sat (Measured) 98.5 % (95-98) H 07/02/18 09:45 ABG O2 Content 18.1 % vol (15-22) 07/02/18 09:45 ABG Base Excess 8.2 meq/l (-2-2) H 07/02/18 09:45 Scott Test Positive 07/02/18 09:45 O2 Delivery Device No Result Required. 07/02/18 09:45 Oxygen Flow Rate No Result Required. 07/02/18 09:45 Vent Mode No Result Required. 07/02/18 09:45 Vent Rate No Result Required. 07/02/18 09:45 Mechanical Rate No Result Required. 07/02/18 09:45 PEEP 0.0 cmH2O 06/26/18 12:50 Pressure Support Vent No Result Required. 07/02/18 09:45 Sodium 141 mmol/L (136-145) 07/04/18 05:15 Potassium 3.8 mmol/L (3.5-5.1) 07/04/18 05:15 Chloride 103 mmol/L (98-107) 07/04/18 05:15 Carbon Dioxide 32 mmol/L (21-32) 07/04/18 05:15 Anion Gap 6 MMOL/L (8-16) L 07/04/18 05:15 BUN 5 mg/dL (7-18) L 07/04/18 05:15 Creatinine 0.2 mg/dL (0.55-1.3) L 07/04/18 05:15 Creat Clearance w eGFR 356.48 (>60) 07/04/18 05:15 Random Glucose 67 mg/dL (74-106) L 07/04/18 05:15 Calcium 8.5 mg/dL (8.5-10.1) 07/04/18 05:15 Phosphorus 3.1 mg/dL (2.5-4.9) 07/04/18 05:15 Magnesium 2.0 mg/dL (1.8-2.4) 07/04/18 05:15 Total Bilirubin 0.2 mg/dL (0.2-1) 06/27/18 07:10 AST 16 U/L (15-37) 06/27/18 07:10 ALT 26 U/L (13-61) 06/27/18 07:10 Alkaline Phosphatase 344 U/L (45-117) H 06/27/18 07:10 Creatine Kinase 46 U/L (26-192) 06/26/18 11:58 Troponin I < 0.02 ng/ml (0.00-0.05) 06/26/18 11:58 B-Natriuretic Peptide 282.8 pg/ml (5-125) H 06/26/18 11:58 Total Protein 6.2 g/dl (6.4-8.2) L 06/27/18 07:10 Albumin 2.4 g/dl (3.4-5.0) L 06/27/18 07:10 ALL IMAGING REPORTS REVIEWED Microbiology 06/26/18 11:58 Blood - Peripheral Venous Blood Culture - Final NO GROWTH AFTER 5 DAYS INCUBATION 06/26/18 11:58 Blood - Peripheral Venous Blood Culture - Final NO GROWTH AFTER 5 DAYS INCUBATION PHYSICAL EXAM: GENERAL: non-verbal, lethargic, lying in bed on Bipap. NECK: Trachea midline, supple CVS: s1s2, RRR, no m/r/g LUNGS: Decreased BS bilaterally anteriorly, no accessory muscle use ABDOMEN: Soft, NT/ND, NABS, +Gtube EXTREMITIES: 2+ pulses, trace edema, contracted ASSESSMENT: Acute on Chronic Hypoxic Respiratory Failure Aspiration Pneumonia Acute COPD Exacerbation Pseudomonas UTI Hx Left Humeral Fracture Hx Anoxic Brain Injury Seizure Disorder HTN Functional Quadriplegia Hypokalemia PLAN: -c/w PO steroids -BIPAP PRN, trilogy machine to be used at nursing facility -inhaled nebs -completed zosyn course today -replete K and monitor -c/w antiHTN, bp controleld -c/w seizure meds -ID and pulm following -aspiration precautions
[2018-07-04] MEDS: CALCIUM 500MG/VIT-D 200 UNITS COMBO TABLET (FP) GT SCH (22:04)
[2018-07-04] MEDS: ATORVASTATIN CA 20 MG TABLET (FP) PO SCH (22:04)
[2018-07-05] MEDS ORDERED: DEXTROSE 5%-WATER - 50 ML IVPB ONE (00:58)
[2018-07-05] MEDS ORDERED: PIPERACILLIN/TAZOBACTAM 3.375 GM VIAL IVPB ONE (00:58)
[2018-07-05] MEDS: RANITIDINE HCL 150 MG/10 ML UNIT-DOSE GT SCH ×3 (01:17→21:39)
[2018-07-05] MEDS: PIPERACILLIN/TAZOB 3.375 GM 3.375 GM in DEXTROSE 5%-WATER - 50 ML IVPB SCH (01:17)
[2018-07-05] MEDS: ZINC OXIDE 20% TOPICAL OINTMENT 30 GM TUBE TP SCH ×3 (06:38→21:41)
[2018-07-05] MEDS: ARFORMOTEROL TARTRATE 15 MCG/2 ML VIAL NEB SCH ×2 (08:24→21:11)
[2018-07-05] MEDS: BUDESONIDE 0.5 MG/2 ML INH SUSP VIAL NEB SCH ×2 (08:25→21:11)
--- NOTE | 2018-07-05 10:20 | PN ---
Progress Note, Physician History of Present Illness: patient had an hypoxic episode now doing well on nasal canula - Current Medication List Current Medications: Active Medications Amino Acids (Prosource No Carb Liquid Pkt) 30 ml GT DAILY [facility] Last Admin: 07/04/18 10:50 Dose: 30 ml Amlodipine Besylate (Norvasc -) 2.5 mg GT DAILY [facility] Last Admin: 07/04/18 10:23 Dose: 2.5 mg Arformoterol Tartrate (Brovana (Restricted To Pulmonology/Resp) -) 1 amp NEB RBID [facility] Last Admin: 07/05/18 08:24 Dose: 1 amp Ascorbic Acid (Vitamin C -) 500 mg GT BID [facility] Last Admin: 07/04/18 22:04 Dose: 500 mg Atorvastatin Calcium (Lipitor -) 20 mg PO HS [facility] Last Admin: 07/04/18 22:04 Dose: 20 mg Budesonide (Pulmicort 0.5 Mg Nebulizer -) 1 amp NEB RBID [facility] Last Admin: 07/05/18 08:25 Dose: 1 amp Calcium Carbonate/Cholecalciferol (Os-Jamar 500+D -) 2 tab GT HS [facility] Last Admin: 07/04/18 22:04 Dose: 2 tab Enoxaparin Sodium (Lovenox -) 40 mg SQ DAILY [facility] Last Admin: 07/04/18 10:24 Dose: 40 mg Piperacillin Sod/Tazobactam (Sod 3.375 gm/ Dextrose) 50 mls @ 100 mls/hr IVPB Q8H-IV [facility]; Protocol Last Admin: 07/05/18 01:17 Dose: 100 mls/hr Lactobacillus Acidophilus (Bacid -) 1 tab GT BID [facility] Last Admin: 07/04/18 22:02 Dose: 1 tab Levetiracetam (Keppra Oral Solution -) 1,500 mg GT BID [facility] Last Admin: 07/04/18 22:03 Dose: 1,500 mg Metoclopramide HCl (Reglan Oral Solution -) 5 mg GT QID [facility] Last Admin: 07/04/18 22:04 Dose: 5 mg Metoprolol Tartrate (Lopressor Injection -) 5 mg IVPB Q4H PRN PRN Reason: HYPERTENSION Metoprolol Tartrate (Lopressor -) 50 mg GT BID [facility] Last Admin: 07/04/18 22:04 Dose: 50 mg Miconazole Nitrate (Miconazole Nitrate) 1 applic TP DAILY [facility] Last Admin: 07/04/18 10:55 Dose: 1 applic Multi-Ingredient Ointment (Zinc Oxide) 1 applic TP TID [facility] Last Admin: 07/05/18 06:38 Dose: 1 applic Pantoprazole Sodium (Protonix -) 40 mg PO DAILY [facility] Last Admin: 07/04/18 10:23 Dose: 40 mg Phenobarbital (Phenobarbital -) 30 mg GT BID [facility] Last Admin: 07/04/18 22:04 Dose: 30 mg Prednisone (Deltasone -) 40 mg PO DAILY [facility] Last Admin: 07/04/18 10:23 Dose: 40 mg Ranitidine HCl (Zantac Oral Solution -) 150 mg GT BID [facility] Last Admin: 07/05/18 01:17 Dose: 150 mg Silver Sulfadiazine (Silvadene -) 1 applic TP DAILY [facility] Last Admin: 07/04/18 10:55 Dose: 1 applic Topiramate (Topamax -) 25 mg PO DAILY [facility] Last Admin: 07/04/18 10:23 Dose: 25 mg Topiramate (Topamax -) 200 mg GT BID [facility] Last Admin: 07/04/18 22:04 Dose: 200 mg Valproate Sodium (Depakene -) 750 mg GT BID [facility] Last Admin: 07/04/18 22:03 Dose: 750 mg - Objective Vital Signs: Vital Signs Temperature 97.5 F L 07/05/18 06:19 Pulse Rate 69 07/05/18 06:19 Respiratory Rate 20 07/05/18 06:19 Blood Pressure 134/68 07/05/18 06:19 O2 Sat by Pulse Oximetry (%) 98 07/05/18 08:29 Constitutional: Yes: No Distress, Calm Cardiovascular: Yes: Regular Rate and Rhythm Respiratory: Yes: Regular, Poor Air Entry (bases) Gastrointestinal: Yes: Normal Bowel Sounds, Soft Musculoskeletal: Yes: WNL Extremities: Yes: Other (contracted) Neurological: Yes: Alert Labs: CBC, BMP 07/03/18 06:20 07/04/18 05:15 Assessment/Plan Problem List - Problems (1) Acute on chronic respiratory failure with hypoxia and hypercapnia Code(s): J96.21 - ACUTE AND CHRONIC RESPIRATORY FAILURE WITH HYPOXIA; J96.22 - ACUTE AND CHRONIC RESPIRATORY FAILURE WITH HYPERCAPNIA (2) COPD exacerbation Code(s): J44.1 - CHRONIC OBSTRUCTIVE PULMONARY DISEASE W (ACUTE) EXACERBATION (3) Anoxic brain damage Code(s): G93.1 - ANOXIC BRAIN DAMAGE, NOT ELSEWHERE CLASSIFIED (4) Functional quadriplegia Code(s): R53.2 - FUNCTIONAL QUADRIPLEGIA Assessment/Plan Acute on Chronic Hypoxic and Hypercapneic Respiratory Failure Acute COPD Exacerbation Atelectasis vs Pneumonia Anoxic Brain Injury HTN Functional Quadriplegia Suspect recurrent microaspiration plan will stop abx resp support rest as per the team
[2018-07-05] MEDS: SILVER SULFADIAZINE 1% TOP CREAM 50 GM JAR TP SCH (10:38)
[2018-07-05] MEDS: MICONAZOLE NITRATE 28 GM TUBE TP SCH (10:38)
[2018-07-05] MEDS: TOPIRAMATE 25 MG TABLET (FP) PO SCH (10:39)
[2018-07-05] MEDS: LACTOBACILLUS ACIDOPHILUS 1 TABLET GT SCH ×2 (10:39→21:40)
[2018-07-05] MEDS: predniSONE 20 MG TABLET (UD) PO SCH (10:39)
[2018-07-05] MEDS: TOPIRAMATE 200 MG TABLET (FP) GT SCH ×2 (10:39→21:40)
[2018-07-05] MEDS: METOCLOPRAMIDE HCL 5 MG/5 ML UNIT DOSE CUP GT SCH ×4 (10:40→21:39)
[2018-07-05] MEDS: METOPROLOL TARTRATE 50 MG TABLET (FP) GT SCH ×2 (10:40→21:40)
[2018-07-05] MEDS: PANTOPRAZOLE 40 MG TABLET (FP) PO SCH (10:40)
[2018-07-05] MEDS: VALPROATE SODIUM 250 MG/5 ML UNIT DOSE CUP GT SCH ×2 (10:40→21:39)
[2018-07-05] MEDS: amLODIPine BESYLATE 2.5 MG TABLET (FP) GT SCH (10:40)
[2018-07-05] MEDS: ASCORBIC ACID 500 MG TABLET (FP) GT SCH ×2 (10:40→21:40)
[2018-07-05] MEDS: AMINO ACIDS/PROTEIN HYDROLYS 30 ML LIQUID.PKT GT SCH (10:40)
[2018-07-05] MEDS: ENOXAPARIN NA (PORCINE) 40 MG/0.4 ML DISP.SYRIN SQ SCH (10:42)
[2018-07-05] MEDS: levETIRAcetam 500 MG/5 ML ORAL SOLUTION (UNIT-DOSE CUPS) GT SCH ×2 (10:43→21:39)
[2018-07-05] MEDS ORDERED: PT OWN MED DRAWER 7, Y5N ONE ×2 (10:44→20:50)
[2018-07-05] MEDS: PHENobarbital 30 MG TABLET GT SCH ×2 (10:47→21:40)
--- NOTE | 2018-07-05 13:36 | PN ---
Progress Note, Physician History of Present Illness: PULMONARY SLEEPY,-RESP DISTRESS - Current Medication List Current Medications: Active Medications Amino Acids (Prosource No Carb Liquid Pkt) 30 ml GT DAILY [facility] Last Admin: 07/05/18 10:40 Dose: 30 ml Amlodipine Besylate (Norvasc -) 2.5 mg GT DAILY [facility] Last Admin: 07/05/18 10:40 Dose: 2.5 mg Arformoterol Tartrate (Brovana (Restricted To Pulmonology/Resp) -) 1 amp NEB RBID [facility] Last Admin: 07/05/18 08:24 Dose: 1 amp Ascorbic Acid (Vitamin C -) 500 mg GT BID [facility] Last Admin: 07/05/18 10:40 Dose: 500 mg Atorvastatin Calcium (Lipitor -) 20 mg PO HS [facility] Last Admin: 07/04/18 22:04 Dose: 20 mg Budesonide (Pulmicort 0.5 Mg Nebulizer -) 1 amp NEB RBID [facility] Last Admin: 07/05/18 08:25 Dose: 1 amp Calcium Carbonate/Cholecalciferol (Os-Jamar 500+D -) 2 tab GT HS [facility] Last Admin: 07/04/18 22:04 Dose: 2 tab Enoxaparin Sodium (Lovenox -) 40 mg SQ DAILY [facility] Last Admin: 07/05/18 10:42 Dose: 40 mg Lactobacillus Acidophilus (Bacid -) 1 tab GT BID [facility] Last Admin: 07/05/18 10:39 Dose: 1 tab Levetiracetam (Keppra Oral Solution -) 1,500 mg GT BID [facility] Last Admin: 07/05/18 10:43 Dose: 1,500 mg Metoclopramide HCl (Reglan Oral Solution -) 5 mg GT QID [facility] Last Admin: 07/05/18 10:40 Dose: 5 mg Metoprolol Tartrate (Lopressor Injection -) 5 mg IVPB Q4H PRN PRN Reason: HYPERTENSION Metoprolol Tartrate (Lopressor -) 50 mg GT BID [facility] Last Admin: 07/05/18 10:40 Dose: 50 mg Miconazole Nitrate (Miconazole Nitrate) 1 applic TP DAILY [facility] Last Admin: 07/05/18 10:38 Dose: 1 applic Multi-Ingredient Ointment (Zinc Oxide) 1 applic TP TID [facility] Last Admin: 07/05/18 06:38 Dose: 1 applic Pantoprazole Sodium (Protonix -) 40 mg PO DAILY [facility] Last Admin: 07/05/18 10:40 Dose: 40 mg Phenobarbital (Phenobarbital -) 30 mg GT BID [facility] Last Admin: 07/05/18 10:47 Dose: 30 mg Prednisone (Deltasone -) 40 mg PO DAILY [facility] Last Admin: 07/05/18 10:39 Dose: 40 mg Ranitidine HCl (Zantac Oral Solution -) 150 mg GT BID [facility] Last Admin: 07/05/18 10:42 Dose: 150 mg Silver Sulfadiazine (Silvadene -) 1 applic TP DAILY [facility] Last Admin: 07/05/18 10:38 Dose: 1 applic Topiramate (Topamax -) 25 mg PO DAILY [facility] Last Admin: 07/05/18 10:39 Dose: 25 mg Topiramate (Topamax -) 200 mg GT BID [facility] Last Admin: 07/05/18 10:39 Dose: 200 mg Valproate Sodium (Depakene -) 750 mg GT BID [facility] Last Admin: 07/05/18 10:40 Dose: 750 mg - Objective Vital Signs: Vital Signs Temperature 98.0 F 07/05/18 10:30 Pulse Rate 76 07/05/18 10:30 Respiratory Rate 18 07/05/18 10:30 Blood Pressure 146/90 07/05/18 10:30 O2 Sat by Pulse Oximetry (%) 98 07/05/18 08:29 Constitutional: Yes: Well Nourished (SLEEPING), Other Eyes: Yes: WNL HENT: Yes: WNL Neck: Yes: WNL Cardiovascular: Yes: Regular Rate and Rhythm, S1, S2 Respiratory: Yes: Rhonchi (FEW RHONCHI) Gastrointestinal: Yes: Normal Bowel Sounds, Soft Extremities: Yes: WNL, Shortened Labs: CBC, BMP Assessment/Plan Problem List - Problems (1) Acute on chronic respiratory failure with hypoxia and hypercapnia Code(s): J96.21 - ACUTE AND CHRONIC RESPIRATORY FAILURE WITH HYPOXIA; J96.22 - ACUTE AND CHRONIC RESPIRATORY FAILURE WITH HYPERCAPNIA (2) COPD exacerbation Code(s): J44.1 - CHRONIC OBSTRUCTIVE PULMONARY DISEASE W (ACUTE) EXACERBATION (3) Anoxic brain damage Code(s): G93.1 - ANOXIC BRAIN DAMAGE, NOT ELSEWHERE CLASSIFIED (4) Functional quadriplegia Code(s): R53.2 - FUNCTIONAL QUADRIPLEGIA Assessment/Plan Acute on Chronic Hypoxic and Hypercapneic Respiratory Failure improving Acute COPD Exacerbation Atelectasis vs Pneumonia Anoxic Brain Injury HTN Functional Quadriplegia Suspect recurrent microaspiration - NC O2 as tolerated - NIPPV support as needed - Prednisone 40mg daily - inhaled bronchodilators - aspiration precautions - DVT prophylaxis - DNR DR SUAREZ
--- NOTE | 2018-07-05 15:48 | PN ---
Teaching Attending Note ATTENDING PHYSICIAN STATEMENT I saw and evaluated the patient. I reviewed the resident's note and discussed the case with the resident. I agree with the resident's findings and plan as documented. SUBJECTIVE: OBJECTIVE: ASSESSMENT AND PLAN:
--- NOTE | 2018-07-05 15:51 | PN ---
Teaching Attending Note Name of Resident: Melania Marin ATTENDING PHYSICIAN STATEMENT I saw and evaluated the patient. I reviewed the resident's note and discussed the case with the resident. I agree with the resident's findings and plan as documented. SUBJECTIVE: No events over night. OBJECTIVE: NAD, comfortable. on NC CV : RRR Lungs: CTAB anteriorly Ext : No edema , + muscular atrophy ASSESSMENT AND PLAN: 67 y/o lady with h/o anoxic brain injury, seizures, HLP, HTN, GT placement, and COPD who presented with Hypoxia 1- Acute hypoxic , hypercapnic resp failure, due to Acute COPD exacerbation. Possible continued aspiration - cont prednisone . start tapering tomorrow - BIPAP q HS. [facility] to rent BIPAP for her and arrange for a sleep study as out pt. - nebs - off zosyn 2- Seizure disorder: cont her home meds 3- HTN: cont meds 4- Nutrition : TF Dispo : back to [facility], hopefully tonight when BIPAP is delivered .
--- NOTE | 2018-07-05 18:33 | PN ---
Physical Exam: SUBJECTIVE: Patient seen and examined this AM. No acute events overnight. Sats well on Nasal canulla. OBJECTIVE: Vital Signs Period Temp Pulse Resp BP Sys/Restrepo Pulse Ox Last 24 Hr 97 F-98.8 F 69-93 18-20 130-165/62-90 95-98 GENERAL: NAD HEAD: Microcephaly EYES: PERRL ENT: Moist mucous membranes NECK: No JVD LUNGS: Diminished breath sounds at the bases, no wheezes, no crackles HEART: RRR, S1, S2 without murmur ABDOMEN: Soft, nondistended, + bowel sounds, GTube present without surrounding erythema or drainage EXTREMITIES: All extremities contracted, 1+ right pedal edema NEUROLOGICAL: Arousable SKIN: Warm, Dry Active Medications Amino Acids (Prosource No Carb Liquid Pkt) 30 ml GT DAILY [facility] Last Admin: 07/05/18 10:40 Dose: 30 ml Amlodipine Besylate (Norvasc -) 2.5 mg GT DAILY [facility] Last Admin: 07/05/18 10:40 Dose: 2.5 mg Arformoterol Tartrate (Brovana (Restricted To Pulmonology/Resp) -) 1 amp NEB RBID [facility] Last Admin: 07/05/18 08:24 Dose: 1 amp Ascorbic Acid (Vitamin C -) 500 mg GT BID [facility] Last Admin: 07/05/18 10:40 Dose: 500 mg Atorvastatin Calcium (Lipitor -) 20 mg PO HS [facility] Last Admin: 07/04/18 22:04 Dose: 20 mg Budesonide (Pulmicort 0.5 Mg Nebulizer -) 1 amp NEB RBID [facility] Last Admin: 07/05/18 08:25 Dose: 1 amp Calcium Carbonate/Cholecalciferol (Os-Jamar 500+D -) 2 tab GT HS [facility] Last Admin: 07/04/18 22:04 Dose: 2 tab Enoxaparin Sodium (Lovenox -) 40 mg SQ DAILY [facility] Last Admin: 07/05/18 10:42 Dose: 40 mg Lactobacillus Acidophilus (Bacid -) 1 tab GT BID [facility] Last Admin: 07/05/18 10:39 Dose: 1 tab Levetiracetam (Keppra Oral Solution -) 1,500 mg GT BID [facility] Last Admin: 07/05/18 10:43 Dose: 1,500 mg Metoclopramide HCl (Reglan Oral Solution -) 5 mg GT QID [facility] Last Admin: 07/05/18 17:12 Dose: 5 mg Metoprolol Tartrate (Lopressor Injection -) 5 mg IVPB Q4H PRN PRN Reason: HYPERTENSION Metoprolol Tartrate (Lopressor -) 50 mg GT BID [facility] Last Admin: 07/05/18 10:40 Dose: 50 mg Miconazole Nitrate (Miconazole Nitrate) 1 applic TP DAILY [facility] Last Admin: 07/05/18 10:38 Dose: 1 applic Multi-Ingredient Ointment (Zinc Oxide) 1 applic TP TID [facility] Last Admin: 07/05/18 14:50 Dose: 1 applic Pantoprazole Sodium (Protonix -) 40 mg PO DAILY [facility] Last Admin: 07/05/18 10:40 Dose: 40 mg Phenobarbital (Phenobarbital -) 30 mg GT BID [facility] Last Admin: 07/05/18 10:47 Dose: 30 mg Prednisone (Deltasone -) 40 mg PO DAILY [facility] Last Admin: 07/05/18 10:39 Dose: 40 mg Ranitidine HCl (Zantac Oral Solution -) 150 mg GT BID [facility] Last Admin: 07/05/18 10:42 Dose: 150 mg Silver Sulfadiazine (Silvadene -) 1 applic TP DAILY [facility] Last Admin: 07/05/18 10:38 Dose: 1 applic Topiramate (Topamax -) 25 mg PO DAILY [facility] Last Admin: 07/05/18 10:39 Dose: 25 mg Topiramate (Topamax -) 200 mg GT BID [facility] Last Admin: 07/05/18 10:39 Dose: 200 mg Valproate Sodium (Depakene -) 750 mg GT BID [facility] Last Admin: 07/05/18 10:40 Dose: 750 mg Microbiology 06/26/18 11:58 Blood - Peripheral Venous Blood Culture - Final NO GROWTH AFTER 5 DAYS INCUBATION 06/26/18 11:58 Blood - Peripheral Venous Blood Culture - Final NO GROWTH AFTER 5 DAYS INCUBATION IMAGING: -CXR: Levoscoliosis of the spine. No airspace opacities are seen in the visualized left lung. Elevated right diaphragm. No airspace opacities are seen in the right upper lung zone. No pneumothorax is seen. -CXR: Portion of the left lung is obscured by the thoracic spine. No airspace opacities are seen in the visualized lungs. No pneumothorax, or large pleural effusion is seen. Unable to evaluate adequately the cardiac silhouette. Old healed fracture proximal left humerus. -Chest CTA: No definite CT evidence of pulmonary embolism. Evaluation of the lower lobe subsegmental vessels is somewhat limited due to vessel crowding. Bilateral wedge-shaped lower lobe opacities are noted posteriorly consistent with atelectasis and/or infiltrates. Very small left-sided and trace right- sided pleural effusions are seen. -EKG: SINUS RHYTHM WITH SHORT NE, VR 100, QTc 397 ASSESSMENT/PLAN: 67 y/o non-verbal Female with PMHx of anoxic brain injury, COPD (on 4L at home) , seizures, who was recently discharged from [facility] for Sepsis due to Pseudomonas UTI, presents from [facility] with Respiratory Distress. #Acute Hypercapneic Respiratory Failure -Unclear etiology; Still consider micro aspirations -Completed ABx course -Supplemental O2 to maintain SpO2 88-92% -Bilevel HS (15/5/12/40%) -Prednisone 40mg PO Daily -Albuterol KELL Q6H PRN -Keep HOB elevated -Aspiration precautions #GTube dislodged--Now functional -Resume tube feeds #Hypertension -Metoprolol Tartrate 50mg GT BID, Amlodipine to 5mg GT Daily #HLD -Atorvastatin 20mg GT HS #GERD -Metoclopramide, Pantoprazole #Seizures -Levetiracetam, Valproate, Topiramate, Phenobarbital #FEN -No standing fluids -Monitor lytes -Resume Vital Tube feeds #PPx -DVT: Lovenox -GI: PPI Code status: DNR Visit type - Emergency Visit Emergency Visit: Yes ED Registration Date: 06/26/18 Care time: The patient presented to the Emergency Department on the above date and was hospitalized for further evaluation of their emergent condition. - New Patient This patient is new to me today: No - Critical Care Critical Care patient: No - Discharge Referral Referred to [facility] Med [facility] No
[2018-07-05] MEDS: ATORVASTATIN CA 20 MG TABLET (FP) PO SCH (21:40)
[2018-07-05] MEDS: CALCIUM 500MG/VIT-D 200 UNITS COMBO TABLET (FP) GT SCH (21:40)
[2018-07-06] MEDS: ZINC OXIDE 20% TOPICAL OINTMENT 30 GM TUBE TP SCH ×3 (05:56→21:20)
[2018-07-06] MEDS: ARFORMOTEROL TARTRATE 15 MCG/2 ML VIAL NEB SCH ×2 (07:38→20:38)
[2018-07-06] MEDS: BUDESONIDE 0.5 MG/2 ML INH SUSP VIAL NEB SCH ×2 (07:38→20:38)
--- NOTE | 2018-07-06 09:21 | PN ---
Physical Exam: SUBJECTIVE: Patient seen and examined this AM. Tolerated Bipap overnight and saturating well on Nasal canulla this AM. Tolerating Tube feeds. Less dyspneic. OBJECTIVE: Vital Signs Period Temp Pulse Resp BP Sys/Restrepo Pulse Ox Last 24 Hr 98.0 F-98.8 F 70-95 18-22 112-146/70-93 95-96 GENERAL: NAD HEAD: Microcephaly EYES: PERRL ENT: Moist mucous membranes NECK: No JVD LUNGS: Diminished breath sounds at the bases, no wheezes, no crackles HEART: RRR, S1, S2 without murmur ABDOMEN: Soft, nondistended, + bowel sounds, GTube present without surrounding erythema or drainage EXTREMITIES: All extremities contracted, 1+ right pedal edema NEUROLOGICAL: Awake SKIN: Warm, Dry Active Medications Amino Acids (Prosource No Carb Liquid Pkt) 30 ml GT DAILY [facility] Last Admin: 07/05/18 10:40 Dose: 30 ml Amlodipine Besylate (Norvasc -) 2.5 mg GT DAILY [facility] Last Admin: 07/05/18 10:40 Dose: 2.5 mg Arformoterol Tartrate (Brovana (Restricted To Pulmonology/Resp) -) 1 amp NEB RBID [facility] Last Admin: 07/06/18 07:38 Dose: 1 amp Ascorbic Acid (Vitamin C -) 500 mg GT BID [facility] Last Admin: 07/05/18 21:40 Dose: 500 mg Atorvastatin Calcium (Lipitor -) 20 mg PO HS [facility] Last Admin: 07/05/18 21:40 Dose: 20 mg Budesonide (Pulmicort 0.5 Mg Nebulizer -) 1 amp NEB RBID [facility] Last Admin: 07/06/18 07:38 Dose: 1 amp Calcium Carbonate/Cholecalciferol (Os-Jamar 500+D -) 2 tab GT HS [facility] Last Admin: 07/05/18 21:40 Dose: 2 tab Enoxaparin Sodium (Lovenox -) 40 mg SQ DAILY [facility] Last Admin: 07/05/18 10:42 Dose: 40 mg Lactobacillus Acidophilus (Bacid -) 1 tab GT BID [facility] Last Admin: 07/05/18 21:40 Dose: 1 tab Levetiracetam (Keppra Oral Solution -) 1,500 mg GT BID [facility] Last Admin: 07/05/18 21:39 Dose: 1,500 mg Metoclopramide HCl (Reglan Oral Solution -) 5 mg GT QID [facility] Last Admin: 07/05/18 21:39 Dose: 5 mg Metoprolol Tartrate (Lopressor Injection -) 5 mg IVPB Q4H PRN PRN Reason: HYPERTENSION Metoprolol Tartrate (Lopressor -) 50 mg GT BID [facility] Last Admin: 07/05/18 21:40 Dose: 50 mg Miconazole Nitrate (Miconazole Nitrate) 1 applic TP DAILY [facility] Last Admin: 07/05/18 10:38 Dose: 1 applic Multi-Ingredient Ointment (Zinc Oxide) 1 applic TP TID [facility] Last Admin: 07/06/18 05:56 Dose: 1 applic Pantoprazole Sodium (Protonix -) 40 mg PO DAILY [facility] Last Admin: 07/05/18 10:40 Dose: 40 mg Phenobarbital (Phenobarbital -) 30 mg GT BID [facility] Last Admin: 07/05/18 21:40 Dose: 30 mg Prednisone (Deltasone -) 40 mg PO DAILY [facility] Last Admin: 07/05/18 10:39 Dose: 40 mg Ranitidine HCl (Zantac Oral Solution -) 150 mg GT BID [facility] Last Admin: 07/05/18 21:39 Dose: 150 mg Silver Sulfadiazine (Silvadene -) 1 applic TP DAILY [facility] Last Admin: 07/05/18 10:38 Dose: 1 applic Topiramate (Topamax -) 25 mg PO DAILY [facility] Last Admin: 07/05/18 10:39 Dose: 25 mg Topiramate (Topamax -) 200 mg GT BID [facility] Last Admin: 07/05/18 21:40 Dose: 200 mg Valproate Sodium (Depakene -) 750 mg GT BID [facility] Last Admin: 07/05/18 21:39 Dose: 750 mg Microbiology 06/26/18 11:58 Blood - Peripheral Venous Blood Culture - Final NO GROWTH AFTER 5 DAYS INCUBATION 06/26/18 11:58 Blood - Peripheral Venous Blood Culture - Final NO GROWTH AFTER 5 DAYS INCUBATION IMAGING: -CXR: Levoscoliosis of the spine. No airspace opacities are seen in the visualized left lung. Elevated right diaphragm. No airspace opacities are seen in the right upper lung zone. No pneumothorax is seen. -CXR: Portion of the left lung is obscured by the thoracic spine. No airspace opacities are seen in the visualized lungs. No pneumothorax, or large pleural effusion is seen. Unable to evaluate adequately the cardiac silhouette. Old healed fracture proximal left humerus. -Chest CTA: No definite CT evidence of pulmonary embolism. Evaluation of the lower lobe subsegmental vessels is somewhat limited due to vessel crowding. Bilateral wedge-shaped lower lobe opacities are noted posteriorly consistent with atelectasis and/or infiltrates. Very small left-sided and trace right- sided pleural effusions are seen. -EKG: SINUS RHYTHM WITH SHORT MO, VR 100, QTc 397 ASSESSMENT/PLAN: 67 y/o non-verbal Female with PMHx of anoxic brain injury, COPD (on 4L at home) , seizures, who was recently discharged from [facility] for Sepsis due to Pseudomonas UTI, presents from [facility] with Respiratory Distress. #Acute Hypercapneic Respiratory Failure -Likely due to micro aspirations--Completed ABx course -Supplemental O2 to maintain SpO2 88-92% -Bilevel HS (15/5/12/40%)--Artie to rent machine for patient -Prednisone 40mg PO Daily -Albuterol KELL Q6H PRN -Keep HOB elevated -Aspiration precautions #GTube dislodged--Now functional -Continue tube feeds #Hypertension -Metoprolol Tartrate 50mg GT BID, Amlodipine to 5mg GT Daily #HLD -Atorvastatin 20mg GT HS #GERD -Metoclopramide, Pantoprazole #Seizures -Levetiracetam, Valproate, Topiramate, Phenobarbital #FEN -No standing fluids -Monitor lytes -Vital Tube feeds #PPx -DVT: Lovenox -GI: PPI Code status: DNR Dispo: D/C to [place] on Sunday Visit type - Emergency Visit Emergency Visit: Yes ED Registration Date: 06/26/18 Care time: The patient presented to the Emergency Department on the above date and was hospitalized for further evaluation of their emergent condition. - New Patient This patient is new to me today: No - Critical Care Critical Care patient: No - Discharge Referral Referred to [facility] Med P.C.: No
[2018-07-06] MEDS ORDERED: PT OWN MED DRAWER 7, Y5N ONE ×2 (10:04→21:05)
[2018-07-06] MEDS: VALPROATE SODIUM 250 MG/5 ML UNIT DOSE CUP GT SCH ×2 (10:06→21:18)
[2018-07-06] MEDS: METOCLOPRAMIDE HCL 5 MG/5 ML UNIT DOSE CUP GT SCH ×4 (10:06→21:18)
[2018-07-06] MEDS: amLODIPine BESYLATE 2.5 MG TABLET (FP) GT SCH (10:06)
[2018-07-06] MEDS: AMINO ACIDS/PROTEIN HYDROLYS 30 ML LIQUID.PKT GT SCH (10:06)
[2018-07-06] MEDS: PANTOPRAZOLE 40 MG TABLET (FP) PO SCH (10:06)
[2018-07-06] MEDS: levETIRAcetam 500 MG/5 ML ORAL SOLUTION (UNIT-DOSE CUPS) GT SCH ×2 (10:06→21:19)
[2018-07-06] MEDS: ENOXAPARIN NA (PORCINE) 40 MG/0.4 ML DISP.SYRIN SQ SCH (10:06)
[2018-07-06] MEDS: PHENobarbital 30 MG TABLET GT SCH ×2 (10:07→21:20)
[2018-07-06] MEDS: LACTOBACILLUS ACIDOPHILUS 1 TABLET GT SCH ×2 (10:07→21:19)
[2018-07-06] MEDS: TOPIRAMATE 25 MG TABLET (FP) PO SCH (10:07)
[2018-07-06] MEDS: predniSONE 20 MG TABLET (UD) PO SCH (10:07)
[2018-07-06] MEDS: METOPROLOL TARTRATE 50 MG TABLET (FP) GT SCH ×2 (10:07→21:20)
[2018-07-06] MEDS: RANITIDINE HCL 150 MG/10 ML UNIT-DOSE GT SCH ×2 (10:07→21:18)
[2018-07-06] MEDS: ASCORBIC ACID 500 MG TABLET (FP) GT SCH ×2 (10:07→21:19)
[2018-07-06] MEDS: TOPIRAMATE 200 MG TABLET (FP) GT SCH ×2 (10:07→21:19)
[2018-07-06] MEDS: SILVER SULFADIAZINE 1% TOP CREAM 50 GM JAR TP SCH (10:15)
[2018-07-06] MEDS: MICONAZOLE NITRATE 28 GM TUBE TP SCH (10:15)
--- NOTE | 2018-07-06 10:20 | PN ---
Teaching Attending Note Name of Resident: Melania Marin ATTENDING PHYSICIAN STATEMENT I saw and evaluated the patient. I reviewed the resident's note and discussed the case with the resident. I agree with the resident's findings and plan as documented. SUBJECTIVE: no events over night OBJECTIVE: NAD, comfortable. on NC CV : RRR Lungs: CTAB anteriorly Ext : No edema , + muscular atrophy Abd: soft, PEG in , nl BS ASSESSMENT AND PLAN: 67 y/o lady with h/o anoxic brain injury, seizures, HLP, HTN, GT placement, and COPD who presented with Hypoxia 1- Acute hypoxic, hypercapnic resp failure, due to Acute COPD exacerbation. Possible continued aspiration - Prednisone taper - BIPAP q HS. Mir to rent BIPAP for her and arrange for a sleep study as out pt. - nebs 2- Seizure disorder: cont her home meds 3- HTN: cont meds 4- Nutrition : TF Dispo :[facility] will accept on Sunday
--- NOTE | 2018-07-06 11:36 | PN ---
Progress Note, Physician History of Present Illness: stable no new issues - Current Medication List Current Medications: Active Medications Amino Acids (Prosource No Carb Liquid Pkt) 30 ml GT DAILY [facility] Last Admin: 07/06/18 10:06 Dose: 30 ml Amlodipine Besylate (Norvasc -) 2.5 mg GT DAILY [facility] Last Admin: 07/06/18 10:06 Dose: 2.5 mg Arformoterol Tartrate (Brovana (Restricted To Pulmonology/Resp) -) 1 amp NEB RBID [facility] Last Admin: 07/06/18 07:38 Dose: 1 amp Ascorbic Acid (Vitamin C -) 500 mg GT BID [facility] Last Admin: 07/06/18 10:07 Dose: 500 mg Atorvastatin Calcium (Lipitor -) 20 mg PO HS [facility] Last Admin: 07/05/18 21:40 Dose: 20 mg Budesonide (Pulmicort 0.5 Mg Nebulizer -) 1 amp NEB RBID [facility] Last Admin: 07/06/18 07:38 Dose: 1 amp Calcium Carbonate/Cholecalciferol (Os-Jamar 500+D -) 2 tab GT HS [facility] Last Admin: 07/05/18 21:40 Dose: 2 tab Enoxaparin Sodium (Lovenox -) 40 mg SQ DAILY [facility] Last Admin: 07/06/18 10:06 Dose: 40 mg Lactobacillus Acidophilus (Bacid -) 1 tab GT BID [facility] Last Admin: 07/06/18 10:07 Dose: 1 tab Levetiracetam (Keppra Oral Solution -) 1,500 mg GT BID [facility] Last Admin: 07/06/18 10:06 Dose: 1,500 mg Metoclopramide HCl (Reglan Oral Solution -) 5 mg GT QID [facility] Last Admin: 07/06/18 10:06 Dose: 5 mg Metoprolol Tartrate (Lopressor Injection -) 5 mg IVPB Q4H PRN PRN Reason: HYPERTENSION Metoprolol Tartrate (Lopressor -) 50 mg GT BID [facility] Last Admin: 07/06/18 10:07 Dose: 50 mg Miconazole Nitrate (Miconazole Nitrate) 1 applic TP DAILY [facility] Last Admin: 07/06/18 10:15 Dose: 1 applic Multi-Ingredient Ointment (Zinc Oxide) 1 applic TP TID [facility] Last Admin: 07/06/18 05:56 Dose: 1 applic Pantoprazole Sodium (Protonix -) 40 mg PO DAILY [facility] Last Admin: 07/06/18 10:06 Dose: 40 mg Phenobarbital (Phenobarbital -) 30 mg GT BID [facility] Last Admin: 07/06/18 10:07 Dose: 30 mg Prednisone (Deltasone -) 30 mg PO DAILY [facility] Ranitidine HCl (Zantac Oral Solution -) 150 mg GT BID [facility] Last Admin: 07/06/18 10:07 Dose: 150 mg Silver Sulfadiazine (Silvadene -) 1 applic TP DAILY [facility] Last Admin: 07/06/18 10:15 Dose: 1 applic Topiramate (Topamax -) 25 mg PO DAILY [facility] Last Admin: 07/06/18 10:07 Dose: 25 mg Topiramate (Topamax -) 200 mg GT BID [facility] Last Admin: 07/06/18 10:07 Dose: 200 mg Valproate Sodium (Depakene -) 750 mg GT BID [facility] Last Admin: 07/06/18 10:06 Dose: 750 mg - Objective Vital Signs: Vital Signs Temperature 98.5 F 07/06/18 09:00 Pulse Rate 116 H 07/06/18 09:00 Respiratory Rate 20 07/06/18 09:00 Blood Pressure 155/98 07/06/18 09:00 O2 Sat by Pulse Oximetry (%) 94 L 07/06/18 11:10 Constitutional: Yes: No Distress, Calm Cardiovascular: Yes: S1, S2 Respiratory: Yes: Regular, CTA Bilaterally, On Nasal O2 Gastrointestinal: Yes: Normal Bowel Sounds, Soft Musculoskeletal: Yes: WNL Extremities: Yes: Other Neurological: Yes: Alert, Other Psychiatric: Yes: Other Labs: CBC, BMP 07/03/18 06:20 07/04/18 05:15 Assessment/Plan Problem List - Problems (1) Acute on chronic respiratory failure with hypoxia and hypercapnia Code(s): J96.21 - ACUTE AND CHRONIC RESPIRATORY FAILURE WITH HYPOXIA; J96.22 - ACUTE AND CHRONIC RESPIRATORY FAILURE WITH HYPERCAPNIA (2) COPD exacerbation Code(s): J44.1 - CHRONIC OBSTRUCTIVE PULMONARY DISEASE W (ACUTE) EXACERBATION (3) Anoxic brain damage Code(s): G93.1 - ANOXIC BRAIN DAMAGE, NOT ELSEWHERE CLASSIFIED (4) Functional quadriplegia Code(s): R53.2 - FUNCTIONAL QUADRIPLEGIA Assessment/Plan Acute on Chronic Hypoxic and Hypercapneic Respiratory Failure Acute COPD Exacerbation Atelectasis vs Pneumonia Anoxic Brain Injury HTN Functional Quadriplegia Suspect recurrent microaspiration plan stable off of abx resp support rest as per the team stable
--- NOTE | 2018-07-06 12:46 | PN ---
Progress Note, Physician History of Present Illness: PULMONARY SLEEPING ,NO DISTRESS,-CONGESTION - Current Medication List Current Medications: Active Medications Amino Acids (Prosource No Carb Liquid Pkt) 30 ml GT DAILY [facility] Last Admin: 07/06/18 10:06 Dose: 30 ml Amlodipine Besylate (Norvasc -) 2.5 mg GT DAILY [facility] Last Admin: 07/06/18 10:06 Dose: 2.5 mg Arformoterol Tartrate (Brovana (Restricted To Pulmonology/Resp) -) 1 amp NEB RBID [facility] Last Admin: 07/06/18 07:38 Dose: 1 amp Ascorbic Acid (Vitamin C -) 500 mg GT BID [facility] Last Admin: 07/06/18 10:07 Dose: 500 mg Atorvastatin Calcium (Lipitor -) 20 mg PO HS [facility] Last Admin: 07/05/18 21:40 Dose: 20 mg Budesonide (Pulmicort 0.5 Mg Nebulizer -) 1 amp NEB RBID [facility] Last Admin: 07/06/18 07:38 Dose: 1 amp Calcium Carbonate/Cholecalciferol (Os-Jamar 500+D -) 2 tab GT HS [facility] Last Admin: 07/05/18 21:40 Dose: 2 tab Enoxaparin Sodium (Lovenox -) 40 mg SQ DAILY [facility] Last Admin: 07/06/18 10:06 Dose: 40 mg Lactobacillus Acidophilus (Bacid -) 1 tab GT BID [facility] Last Admin: 07/06/18 10:07 Dose: 1 tab Levetiracetam (Keppra Oral Solution -) 1,500 mg GT BID [facility] Last Admin: 07/06/18 10:06 Dose: 1,500 mg Metoclopramide HCl (Reglan Oral Solution -) 5 mg GT QID [facility] Last Admin: 07/06/18 10:06 Dose: 5 mg Metoprolol Tartrate (Lopressor Injection -) 5 mg IVPB Q4H PRN PRN Reason: HYPERTENSION Metoprolol Tartrate (Lopressor -) 50 mg GT BID [facility] Last Admin: 07/06/18 10:07 Dose: 50 mg Miconazole Nitrate (Miconazole Nitrate) 1 applic TP DAILY [facility] Last Admin: 07/06/18 10:15 Dose: 1 applic Multi-Ingredient Ointment (Zinc Oxide) 1 applic TP TID [facility] Last Admin: 07/06/18 05:56 Dose: 1 applic Pantoprazole Sodium (Protonix -) 40 mg PO DAILY [facility] Last Admin: 07/06/18 10:06 Dose: 40 mg Phenobarbital (Phenobarbital -) 30 mg GT BID [facility] Last Admin: 07/06/18 10:07 Dose: 30 mg Prednisone (Deltasone -) 30 mg PO DAILY [facility] Ranitidine HCl (Zantac Oral Solution -) 150 mg GT BID [facility] Last Admin: 07/06/18 10:07 Dose: 150 mg Silver Sulfadiazine (Silvadene -) 1 applic TP DAILY [facility] Last Admin: 07/06/18 10:15 Dose: 1 applic Topiramate (Topamax -) 25 mg PO DAILY [facility] Last Admin: 07/06/18 10:07 Dose: 25 mg Topiramate (Topamax -) 200 mg GT BID [facility] Last Admin: 07/06/18 10:07 Dose: 200 mg Valproate Sodium (Depakene -) 750 mg GT BID [facility] Last Admin: 07/06/18 10:06 Dose: 750 mg - Objective Vital Signs: Vital Signs Temperature 98.5 F 07/06/18 09:00 Pulse Rate 116 H 07/06/18 09:00 Respiratory Rate 20 07/06/18 09:00 Blood Pressure 155/98 07/06/18 09:00 O2 Sat by Pulse Oximetry (%) 94 L 07/06/18 11:10 Constitutional: Yes: Thin, Other (SLEEPING) Eyes: Yes: WNL HENT: Yes: WNL Neck: Yes: WNL Cardiovascular: Yes: Regular Rate and Rhythm, S1, S2 Respiratory: Yes: Diminished Gastrointestinal: Yes: Normal Bowel Sounds, Soft Extremities: Yes: Shortened Edema: No Labs: CBC, BMP 07/03/18 06:20 Assessment/Plan Problem List - Problems (1) Acute on chronic respiratory failure with hypoxia and hypercapnia Code(s): J96.21 - ACUTE AND CHRONIC RESPIRATORY FAILURE WITH HYPOXIA; J96.22 - ACUTE AND CHRONIC RESPIRATORY FAILURE WITH HYPERCAPNIA (2) COPD exacerbation Code(s): J44.1 - CHRONIC OBSTRUCTIVE PULMONARY DISEASE W (ACUTE) EXACERBATION (3) Anoxic brain damage Code(s): G93.1 - ANOXIC BRAIN DAMAGE, NOT ELSEWHERE CLASSIFIED (4) Functional quadriplegia Code(s): R53.2 - FUNCTIONAL QUADRIPLEGIA Assessment/Plan Acute on Chronic Hypoxic and Hypercapneic Respiratory Failure improving Acute COPD Exacerbation improved Atelectasis vs Pneumonia Anoxic Brain Injury HTN Functional Quadriplegia Suspect recurrent microaspiration - NC O2 as tolerated - NIPPV support as needed - Prednisone 30mg daily - inhaled bronchodilators - aspiration precautions - DVT prophylaxis - DNR DR SUAREZ
[2018-07-06] MEDS: ATORVASTATIN CA 20 MG TABLET (FP) PO SCH (21:19)
[2018-07-06] MEDS: CALCIUM 500MG/VIT-D 200 UNITS COMBO TABLET (FP) GT SCH (21:20)
[2018-07-07] MEDS: ZINC OXIDE 20% TOPICAL OINTMENT 30 GM TUBE TP SCH ×3 (06:16→21:16)
[2018-07-07] MEDS: ARFORMOTEROL TARTRATE 15 MCG/2 ML VIAL NEB SCH ×2 (07:38→20:06)
[2018-07-07] MEDS: BUDESONIDE 0.5 MG/2 ML INH SUSP VIAL NEB SCH ×2 (07:38→20:07)
[2018-07-07] MEDS ORDERED: PT OWN MED DRAWER 7, Y5N ONE ×2 (09:26→21:07)
[2018-07-07] MEDS: ASCORBIC ACID 500 MG TABLET (FP) GT SCH ×2 (09:29→21:15)
[2018-07-07] MEDS: PHENobarbital 30 MG TABLET GT SCH ×2 (09:30→21:15)
[2018-07-07] MEDS: PANTOPRAZOLE 40 MG TABLET (FP) PO SCH (09:30)
[2018-07-07] MEDS: amLODIPine BESYLATE 2.5 MG TABLET (FP) GT SCH (09:30)
[2018-07-07] MEDS: TOPIRAMATE 200 MG TABLET (FP) GT SCH ×2 (09:30→21:15)
[2018-07-07] MEDS: AMINO ACIDS/PROTEIN HYDROLYS 30 ML LIQUID.PKT GT SCH (09:30)
[2018-07-07] MEDS: TOPIRAMATE 25 MG TABLET (FP) PO SCH (09:30)
[2018-07-07] MEDS: METOPROLOL TARTRATE 50 MG TABLET (FP) GT SCH ×2 (09:30→21:15)
[2018-07-07] MEDS: predniSONE 20 MG TABLET (UD) PO SCH (09:30)
[2018-07-07] MEDS: VALPROATE SODIUM 250 MG/5 ML UNIT DOSE CUP GT SCH ×2 (09:30→21:15)
[2018-07-07] MEDS: LACTOBACILLUS ACIDOPHILUS 1 TABLET GT SCH ×2 (09:30→21:15)
[2018-07-07] MEDS: RANITIDINE HCL 150 MG/10 ML UNIT-DOSE GT SCH ×2 (09:30→21:16)
[2018-07-07] MEDS: ENOXAPARIN NA (PORCINE) 40 MG/0.4 ML DISP.SYRIN SQ SCH (09:31)
[2018-07-07] MEDS: METOCLOPRAMIDE HCL 5 MG/5 ML UNIT DOSE CUP GT SCH ×4 (09:31→21:16)
[2018-07-07] MEDS: levETIRAcetam 500 MG/5 ML ORAL SOLUTION (UNIT-DOSE CUPS) GT SCH ×2 (09:31→21:16)
[2018-07-07] MEDS: MICONAZOLE NITRATE 28 GM TUBE TP SCH (09:49)
[2018-07-07] MEDS: SILVER SULFADIAZINE 1% TOP CREAM 50 GM JAR TP SCH (09:50)
--- NOTE | 2018-07-07 10:56 | PN ---
Progress Note, Physician History of Present Illness: stable no issues on nassal canula - Current Medication List Current Medications: Active Medications Amino Acids (Prosource No Carb Liquid Pkt) 30 ml GT DAILY [facility] Last Admin: 07/07/18 09:30 Dose: 30 ml Amlodipine Besylate (Norvasc -) 2.5 mg GT DAILY [facility] Last Admin: 07/07/18 09:30 Dose: 2.5 mg Arformoterol Tartrate (Brovana (Restricted To Pulmonology/Resp) -) 1 amp NEB RBID [facility] Last Admin: 07/07/18 07:38 Dose: 1 amp Ascorbic Acid (Vitamin C -) 500 mg GT BID [facility] Last Admin: 07/07/18 09:29 Dose: 500 mg Atorvastatin Calcium (Lipitor -) 20 mg PO HS [facility] Last Admin: 07/06/18 21:19 Dose: 20 mg Budesonide (Pulmicort 0.5 Mg Nebulizer -) 1 amp NEB RBID [facility] Last Admin: 07/07/18 07:38 Dose: 1 amp Calcium Carbonate/Cholecalciferol (Os-Jamar 500+D -) 2 tab GT HS [facility] Last Admin: 07/06/18 21:20 Dose: 2 tab Enoxaparin Sodium (Lovenox -) 40 mg SQ DAILY [facility] Last Admin: 07/07/18 09:31 Dose: 40 mg Lactobacillus Acidophilus (Bacid -) 1 tab GT BID [facility] Last Admin: 07/07/18 09:30 Dose: 1 tab Levetiracetam (Keppra Oral Solution -) 1,500 mg GT BID [facility] Last Admin: 07/07/18 09:31 Dose: 1,500 mg Metoclopramide HCl (Reglan Oral Solution -) 5 mg GT QID [facility] Last Admin: 07/07/18 09:31 Dose: 5 mg Metoprolol Tartrate (Lopressor Injection -) 5 mg IVPB Q4H PRN PRN Reason: HYPERTENSION Metoprolol Tartrate (Lopressor -) 50 mg GT BID [facility] Last Admin: 07/07/18 09:30 Dose: 50 mg Miconazole Nitrate (Miconazole Nitrate) 1 applic TP DAILY [facility] Last Admin: 07/07/18 09:49 Dose: 1 applic Multi-Ingredient Ointment (Zinc Oxide) 1 applic TP TID [facility] Last Admin: 07/07/18 06:16 Dose: 1 applic Pantoprazole Sodium (Protonix -) 40 mg PO DAILY [facility] Last Admin: 07/07/18 09:30 Dose: 40 mg Phenobarbital (Phenobarbital -) 30 mg GT BID [facility] Last Admin: 07/07/18 09:30 Dose: 30 mg Prednisone (Deltasone -) 30 mg PO DAILY [facility] Last Admin: 07/07/18 09:30 Dose: 30 mg Ranitidine HCl (Zantac Oral Solution -) 150 mg GT BID [facility] Last Admin: 07/07/18 09:30 Dose: 150 mg Silver Sulfadiazine (Silvadene -) 1 applic TP DAILY [facility] Last Admin: 07/07/18 09:50 Dose: 1 applic Topiramate (Topamax -) 25 mg PO DAILY [facility] Last Admin: 07/07/18 09:30 Dose: 25 mg Topiramate (Topamax -) 200 mg GT BID [facility] Last Admin: 07/07/18 09:30 Dose: 200 mg Valproate Sodium (Depakene -) 750 mg GT BID [facility] Last Admin: 07/07/18 09:30 Dose: 750 mg - Objective Vital Signs: Vital Signs Temperature 97.6 F 07/07/18 08:48 Pulse Rate 89 07/07/18 08:48 Respiratory Rate 20 07/07/18 08:48 Blood Pressure 151/83 07/07/18 08:48 O2 Sat by Pulse Oximetry (%) 96 07/07/18 09:00 Constitutional: Yes: No Distress, Calm Cardiovascular: Yes: Regular Rate and Rhythm Respiratory: Yes: Regular, On Nasal O2, Poor Air Entry (bases) Gastrointestinal: Yes: Normal Bowel Sounds, Soft Musculoskeletal: Yes: WNL Extremities: Yes: Other (contracted) Neurological: Yes: Alert, Other Psychiatric: Yes: Other Labs: CBC, BMP 07/03/18 06:20 07/04/18 05:15 Assessment/Plan Problem List - Problems (1) Acute on chronic respiratory failure with hypoxia and hypercapnia Code(s): J96.21 - ACUTE AND CHRONIC RESPIRATORY FAILURE WITH HYPOXIA; J96.22 - ACUTE AND CHRONIC RESPIRATORY FAILURE WITH HYPERCAPNIA (2) COPD exacerbation Code(s): J44.1 - CHRONIC OBSTRUCTIVE PULMONARY DISEASE W (ACUTE) EXACERBATION (3) Anoxic brain damage Code(s): G93.1 - ANOXIC BRAIN DAMAGE, NOT ELSEWHERE CLASSIFIED (4) Functional quadriplegia Code(s): R53.2 - FUNCTIONAL QUADRIPLEGIA Assessment/Plan Acute on Chronic Hypoxic and Hypercapneic Respiratory Failure Acute COPD Exacerbation Atelectasis vs Pneumonia Anoxic Brain Injury HTN Functional Quadriplegia Suspect recurrent microaspiration plan stable off of abx resp support rest as per the team stable
--- NOTE | 2018-07-07 13:07 | PN ---
Progress Note, Physician History of Present Illness: PULMONARY no change sleeping on bipap,-resp distress - Current Medication List Current Medications: Active Medications Amino Acids (Prosource No Carb Liquid Pkt) 30 ml GT DAILY [facility] Last Admin: 07/07/18 09:30 Dose: 30 ml Amlodipine Besylate (Norvasc -) 2.5 mg GT DAILY [facility] Last Admin: 07/07/18 09:30 Dose: 2.5 mg Arformoterol Tartrate (Brovana (Restricted To Pulmonology/Resp) -) 1 amp NEB RBID [facility] Last Admin: 07/07/18 07:38 Dose: 1 amp Ascorbic Acid (Vitamin C -) 500 mg GT BID [facility] Last Admin: 07/07/18 09:29 Dose: 500 mg Atorvastatin Calcium (Lipitor -) 20 mg PO HS [facility] Last Admin: 07/06/18 21:19 Dose: 20 mg Budesonide (Pulmicort 0.5 Mg Nebulizer -) 1 amp NEB RBID [facility] Last Admin: 07/07/18 07:38 Dose: 1 amp Calcium Carbonate/Cholecalciferol (Os-Jamar 500+D -) 2 tab GT HS [facility] Last Admin: 07/06/18 21:20 Dose: 2 tab Enoxaparin Sodium (Lovenox -) 40 mg SQ DAILY [facility] Last Admin: 07/07/18 09:31 Dose: 40 mg Lactobacillus Acidophilus (Bacid -) 1 tab GT BID [facility] Last Admin: 07/07/18 09:30 Dose: 1 tab Levetiracetam (Keppra Oral Solution -) 1,500 mg GT BID [facility] Last Admin: 07/07/18 09:31 Dose: 1,500 mg Metoclopramide HCl (Reglan Oral Solution -) 5 mg GT QID [facility] Last Admin: 07/07/18 09:31 Dose: 5 mg Metoprolol Tartrate (Lopressor Injection -) 5 mg IVPB Q4H PRN PRN Reason: HYPERTENSION Metoprolol Tartrate (Lopressor -) 50 mg GT BID [facility] Last Admin: 07/07/18 09:30 Dose: 50 mg Miconazole Nitrate (Miconazole Nitrate) 1 applic TP DAILY [facility] Last Admin: 07/07/18 09:49 Dose: 1 applic Multi-Ingredient Ointment (Zinc Oxide) 1 applic TP TID [facility] Last Admin: 07/07/18 06:16 Dose: 1 applic Pantoprazole Sodium (Protonix -) 40 mg PO DAILY [facility] Last Admin: 07/07/18 09:30 Dose: 40 mg Phenobarbital (Phenobarbital -) 30 mg GT BID [facility] Last Admin: 07/07/18 09:30 Dose: 30 mg Prednisone (Deltasone -) 30 mg PO DAILY [facility] Last Admin: 07/07/18 09:30 Dose: 30 mg Ranitidine HCl (Zantac Oral Solution -) 150 mg GT BID [facility] Last Admin: 07/07/18 09:30 Dose: 150 mg Silver Sulfadiazine (Silvadene -) 1 applic TP DAILY [facility] Last Admin: 07/07/18 09:50 Dose: 1 applic Topiramate (Topamax -) 25 mg PO DAILY [facility] Last Admin: 07/07/18 09:30 Dose: 25 mg Topiramate (Topamax -) 200 mg GT BID [facility] Last Admin: 07/07/18 09:30 Dose: 200 mg Valproate Sodium (Depakene -) 750 mg GT BID [facility] Last Admin: 07/07/18 09:30 Dose: 750 mg - Objective Vital Signs: Vital Signs Temperature 97.6 F 07/07/18 08:48 Pulse Rate 89 07/07/18 08:48 Respiratory Rate 20 07/07/18 08:48 Blood Pressure 151/83 07/07/18 08:48 O2 Sat by Pulse Oximetry (%) 94 L 07/07/18 12:01 Constitutional: Yes: Calm, Thin Eyes: Yes: WNL HENT: Yes: WNL Neck: Yes: WNL Cardiovascular: Yes: Regular Rate and Rhythm, S1, S2 Respiratory: Yes: Diminished, On BiPap Gastrointestinal: Yes: Normal Bowel Sounds, Soft Extremities: Yes: Shortened Edema: No Labs: CBC, BMP Assessment/Plan Problem List - Problems (1) Acute on chronic respiratory failure with hypoxia and hypercapnia Code(s): J96.21 - ACUTE AND CHRONIC RESPIRATORY FAILURE WITH HYPOXIA; J96.22 - ACUTE AND CHRONIC RESPIRATORY FAILURE WITH HYPERCAPNIA (2) COPD exacerbation Code(s): J44.1 - CHRONIC OBSTRUCTIVE PULMONARY DISEASE W (ACUTE) EXACERBATION (3) Anoxic brain damage Code(s): G93.1 - ANOXIC BRAIN DAMAGE, NOT ELSEWHERE CLASSIFIED (4) Functional quadriplegia Code(s): R53.2 - FUNCTIONAL QUADRIPLEGIA Assessment/Plan Acute on Chronic Hypoxic and Hypercapneic Respiratory Failure improving Acute COPD Exacerbation improved Atelectasis vs Pneumonia Anoxic Brain Injury HTN Functional Quadriplegia Suspect recurrent microaspiration - NC O2 as tolerated - NIPPV support as needed - Prednisone 30mg daily - inhaled bronchodilators - aspiration precautions - DVT prophylaxis - DNR DR SUAREZ
--- NOTE | 2018-07-07 14:22 | PN ---
Progress Note (short form) - Note Progress Note: Subjective: no events over night Objective: Vital Signs: Last Vital Signs Temp Pulse Resp BP Pulse Ox 97.6 F 89 20 151/83 94 L 07/07/18 08:48 07/07/18 08:48 07/07/18 08:48 07/07/18 08:48 07/07/18 12:01 Physical Exam: NAD, comfortable. on NC CV : RRR Lungs: CTAB anteriorly Ext : No edema , + muscular atrophy Abd: soft, PEG in , nl BS ASSESSMENT AND PLAN: 67 y/o lady with h/o anoxic brain injury, seizures, HLP, HTN, GT placement, and COPD who presented with Hypoxia 1- Acute hypoxic, hypercapnic resp failure, due to Acute COPD exacerbation. Possible continued aspiration - Prednisone taper - BIPAP q HS. [facility] to rent BIPAP for her and arrange for a sleep study as out pt. - nebs 2- Seizure disorder: cont her home meds 3- HTN: cont meds 4- Nutrition : TF Dispo :[facility] will accept on Sunday Visit type - Emergency Visit Emergency Visit: Yes ED Registration Date: 06/26/18 Care time: The patient presented to the Emergency Department on the above date and was hospitalized for further evaluation of their emergent condition. - New Patient This patient is new to me today: No - Critical Care Critical Care patient: No
[2018-07-07] MEDS: ATORVASTATIN CA 20 MG TABLET (FP) PO SCH (21:15)
[2018-07-07] MEDS: CALCIUM 500MG/VIT-D 200 UNITS COMBO TABLET (FP) GT SCH (21:15)
[2018-07-08] MEDS: ZINC OXIDE 20% TOPICAL OINTMENT 30 GM TUBE TP SCH ×3 (05:45→23:41)
[2018-07-08] MEDS: BUDESONIDE 0.5 MG/2 ML INH SUSP VIAL NEB SCH ×2 (07:34→21:24)
[2018-07-08] MEDS: ARFORMOTEROL TARTRATE 15 MCG/2 ML VIAL NEB SCH ×2 (07:34→21:23)
[2018-07-08] MEDS ORDERED: PT OWN MED DRAWER 7, Y5N ONE (09:55)
[2018-07-08] MEDS: AMINO ACIDS/PROTEIN HYDROLYS 30 ML LIQUID.PKT GT SCH (09:59)
[2018-07-08] MEDS: RANITIDINE HCL 150 MG/10 ML UNIT-DOSE GT SCH ×2 (10:01→23:37)
[2018-07-08] MEDS: PANTOPRAZOLE 40 MG TABLET (FP) PO SCH (10:02)
[2018-07-08] MEDS: TOPIRAMATE 25 MG TABLET (FP) PO SCH (10:02)
[2018-07-08] MEDS: amLODIPine BESYLATE 2.5 MG TABLET (FP) GT SCH (10:03)
[2018-07-08] MEDS: LACTOBACILLUS ACIDOPHILUS 1 TABLET GT SCH ×2 (10:03→23:36)
[2018-07-08] MEDS: predniSONE 20 MG TABLET (UD) PO SCH (10:03)
[2018-07-08] MEDS: TOPIRAMATE 200 MG TABLET (FP) GT SCH ×2 (10:04→23:36)
[2018-07-08] MEDS: METOPROLOL TARTRATE 50 MG TABLET (FP) GT SCH ×2 (10:04→23:37)
[2018-07-08] MEDS: ASCORBIC ACID 500 MG TABLET (FP) GT SCH ×2 (10:04→23:37)
[2018-07-08] MEDS: levETIRAcetam 500 MG/5 ML ORAL SOLUTION (UNIT-DOSE CUPS) GT SCH ×2 (10:05→23:38)
[2018-07-08] MEDS: VALPROATE SODIUM 250 MG/5 ML UNIT DOSE CUP GT SCH ×2 (10:06→23:37)
[2018-07-08] MEDS: ENOXAPARIN NA (PORCINE) 40 MG/0.4 ML DISP.SYRIN SQ SCH (10:07)
[2018-07-08] MEDS: PHENobarbital 30 MG TABLET GT SCH ×2 (10:08→23:37)
[2018-07-08] MEDS: METOCLOPRAMIDE HCL 5 MG/5 ML UNIT DOSE CUP GT SCH ×4 (10:08→23:38)
--- NOTE | 2018-07-08 10:50 | PN ---
Progress Note (short form) - Note Progress Note: PULMONARY Pt nonverbal. Comfortable on BiPAP. No fevers recorded. Vital Signs Period Temp Pulse Resp BP Sys/Restrepo Pulse Ox Last 24 Hr 98.5 F-99 F 86-104 20-20 138-171/56-86 94-96 Gen: NAD on BiPAP Heart: RRR Lung: decreased breath sounds at the bases Abd: soft, nontender Ext: no edema CBC, BMP 07/03/18 06:20 07/04/18 05:15 Active Medications Amino Acids (Prosource No Carb Liquid Pkt) 30 ml GT DAILY [facility] Last Admin: 07/08/18 09:59 Dose: 30 ml Amlodipine Besylate (Norvasc -) 2.5 mg GT DAILY [facility] Last Admin: 07/08/18 10:03 Dose: 2.5 mg Arformoterol Tartrate (Brovana (Restricted To Pulmonology/Resp) -) 1 amp NEB RBID [facility] Last Admin: 07/08/18 07:34 Dose: 1 amp Ascorbic Acid (Vitamin C -) 500 mg GT BID [facility] Last Admin: 07/08/18 10:04 Dose: 500 mg Atorvastatin Calcium (Lipitor -) 20 mg PO HS [facility] Last Admin: 07/07/18 21:15 Dose: 20 mg Budesonide (Pulmicort 0.5 Mg Nebulizer -) 1 amp NEB RBID [facility] Last Admin: 07/08/18 07:34 Dose: 1 amp Calcium Carbonate/Cholecalciferol (Os-Jamar 500+D -) 2 tab GT HS [facility] Last Admin: 07/07/18 21:15 Dose: 2 tab Enoxaparin Sodium (Lovenox -) 40 mg SQ DAILY [facility] Last Admin: 07/08/18 10:07 Dose: 40 mg Lactobacillus Acidophilus (Bacid -) 1 tab GT BID [facility] Last Admin: 07/08/18 10:03 Dose: 1 tab Levetiracetam (Keppra Oral Solution -) 1,500 mg GT BID [facility] Last Admin: 07/08/18 10:05 Dose: 1,500 mg Metoclopramide HCl (Reglan Oral Solution -) 5 mg GT QID [facility] Last Admin: 07/08/18 10:08 Dose: 5 mg Metoprolol Tartrate (Lopressor Injection -) 5 mg IVPB Q4H PRN PRN Reason: HYPERTENSION Metoprolol Tartrate (Lopressor -) 50 mg GT BID [facility] Last Admin: 07/08/18 10:04 Dose: 50 mg Miconazole Nitrate (Miconazole Nitrate) 1 applic TP DAILY [facility] Last Admin: 07/07/18 09:49 Dose: 1 applic Multi-Ingredient Ointment (Zinc Oxide) 1 applic TP TID [facility] Last Admin: 07/08/18 05:45 Dose: 1 applic Pantoprazole Sodium (Protonix -) 40 mg PO DAILY [facility] Last Admin: 07/08/18 10:02 Dose: 40 mg Phenobarbital (Phenobarbital -) 30 mg GT BID [facility] Last Admin: 07/08/18 10:08 Dose: 30 mg Prednisone (Deltasone -) 30 mg PO DAILY [facility] Last Admin: 07/08/18 10:03 Dose: 30 mg Ranitidine HCl (Zantac Oral Solution -) 150 mg GT BID [facility] Last Admin: 07/08/18 10:01 Dose: 150 mg Silver Sulfadiazine (Silvadene -) 1 applic TP DAILY [facility] Last Admin: 07/07/18 09:50 Dose: 1 applic Topiramate (Topamax -) 25 mg PO DAILY [facility] Last Admin: 07/08/18 10:02 Dose: 25 mg Topiramate (Topamax -) 200 mg GT BID [facility] Last Admin: 07/08/18 10:04 Dose: 200 mg Valproate Sodium (Depakene -) 750 mg GT BID [facility] Last Admin: 07/08/18 10:06 Dose: 750 mg A/P Acute on Chronic Hypoxic and Hypercapneic Respiratory Failure improving Acute COPD Exacerbation improved Atelectasis vs Pneumonia Anoxic Brain Injury HTN Functional Quadriplegia Suspect recurrent microaspiration - prednisone taper - inhaled bronchodilators - O2 to keep SpO2 >90% - BiPAP as needed - aspiration precautions - DVT prophylaxis - pt DNR - d/c planning in progress Problem List - Problems (1) Acute on chronic respiratory failure with hypoxia and hypercapnia Code(s): J96.21 - ACUTE AND CHRONIC RESPIRATORY FAILURE WITH HYPOXIA; J96.22 - ACUTE AND CHRONIC RESPIRATORY FAILURE WITH HYPERCAPNIA (2) COPD exacerbation Code(s): J44.1 - CHRONIC OBSTRUCTIVE PULMONARY DISEASE W (ACUTE) EXACERBATION (3) Anoxic brain damage Code(s): G93.1 - ANOXIC BRAIN DAMAGE, NOT ELSEWHERE CLASSIFIED (4) Functional quadriplegia Code(s): R53.2 - FUNCTIONAL QUADRIPLEGIA
[2018-07-08] MEDS: MICONAZOLE NITRATE 28 GM TUBE TP SCH (11:01)
[2018-07-08] MEDS: SILVER SULFADIAZINE 1% TOP CREAM 50 GM JAR TP SCH (11:02)
--- NOTE | 2018-07-08 12:44 | PN ---
Progress Note, Physician History of Present Illness: patient stable now on bipap - Current Medication List Current Medications: Active Medications Amino Acids (Prosource No Carb Liquid Pkt) 30 ml GT DAILY [facility] Last Admin: 07/08/18 09:59 Dose: 30 ml Amlodipine Besylate (Norvasc -) 2.5 mg GT DAILY [facility] Last Admin: 07/08/18 10:03 Dose: 2.5 mg Arformoterol Tartrate (Brovana (Restricted To Pulmonology/Resp) -) 1 amp NEB RBID [facility] Last Admin: 07/08/18 07:34 Dose: 1 amp Ascorbic Acid (Vitamin C -) 500 mg GT BID [facility] Last Admin: 07/08/18 10:04 Dose: 500 mg Atorvastatin Calcium (Lipitor -) 20 mg PO HS [facility] Last Admin: 07/07/18 21:15 Dose: 20 mg Budesonide (Pulmicort 0.5 Mg Nebulizer -) 1 amp NEB RBID [facility] Last Admin: 07/08/18 07:34 Dose: 1 amp Calcium Carbonate/Cholecalciferol (Os-Jamar 500+D -) 2 tab GT HS [facility] Last Admin: 07/07/18 21:15 Dose: 2 tab Enoxaparin Sodium (Lovenox -) 40 mg SQ DAILY [facility] Last Admin: 07/08/18 10:07 Dose: 40 mg Lactobacillus Acidophilus (Bacid -) 1 tab GT BID [facility] Last Admin: 07/08/18 10:03 Dose: 1 tab Levetiracetam (Keppra Oral Solution -) 1,500 mg GT BID [facility] Last Admin: 07/08/18 10:05 Dose: 1,500 mg Metoclopramide HCl (Reglan Oral Solution -) 5 mg GT QID [facility] Last Admin: 07/08/18 10:08 Dose: 5 mg Metoprolol Tartrate (Lopressor Injection -) 5 mg IVPB Q4H PRN PRN Reason: HYPERTENSION Metoprolol Tartrate (Lopressor -) 50 mg GT BID [facility] Last Admin: 07/08/18 10:04 Dose: 50 mg Miconazole Nitrate (Miconazole Nitrate) 1 applic TP DAILY [facility] Last Admin: 07/07/18 09:49 Dose: 1 applic Multi-Ingredient Ointment (Zinc Oxide) 1 applic TP TID [facility] Last Admin: 07/08/18 05:45 Dose: 1 applic Pantoprazole Sodium (Protonix -) 40 mg PO DAILY [facility] Last Admin: 07/08/18 10:02 Dose: 40 mg Phenobarbital (Phenobarbital -) 30 mg GT BID [facility] Last Admin: 07/08/18 10:08 Dose: 30 mg Prednisone (Deltasone -) 30 mg PO DAILY [facility] Last Admin: 07/08/18 10:03 Dose: 30 mg Ranitidine HCl (Zantac Oral Solution -) 150 mg GT BID [facility] Last Admin: 07/08/18 10:01 Dose: 150 mg Silver Sulfadiazine (Silvadene -) 1 applic TP DAILY [facility] Last Admin: 07/07/18 09:50 Dose: 1 applic Topiramate (Topamax -) 25 mg PO DAILY [facility] Last Admin: 07/08/18 10:02 Dose: 25 mg Topiramate (Topamax -) 200 mg GT BID [facility] Last Admin: 07/08/18 10:04 Dose: 200 mg Valproate Sodium (Depakene -) 750 mg GT BID [facility] Last Admin: 07/08/18 10:06 Dose: 750 mg - Objective Vital Signs: Vital Signs Temperature 98.9 F 07/08/18 04:52 Pulse Rate 95 H 07/08/18 09:00 Respiratory Rate 20 07/08/18 09:00 Blood Pressure 148/77 07/08/18 09:00 O2 Sat by Pulse Oximetry (%) 94 L 07/08/18 09:00 Constitutional: Yes: No Distress, Calm Cardiovascular: Yes: Regular Rate and Rhythm Respiratory: Yes: On BiPap Gastrointestinal: Yes: Normal Bowel Sounds, Soft, Other Musculoskeletal: Yes: WNL Extremities: Yes: WNL Neurological: Yes: Alert Psychiatric: Yes: Other Labs: CBC, BMP 07/03/18 06:20 07/04/18 05:15 Assessment/Plan Problem List - Problems (1) Acute on chronic respiratory failure with hypoxia and hypercapnia Code(s): J96.21 - ACUTE AND CHRONIC RESPIRATORY FAILURE WITH HYPOXIA; J96.22 - ACUTE AND CHRONIC RESPIRATORY FAILURE WITH HYPERCAPNIA (2) COPD exacerbation Code(s): J44.1 - CHRONIC OBSTRUCTIVE PULMONARY DISEASE W (ACUTE) EXACERBATION (3) Anoxic brain damage Code(s): G93.1 - ANOXIC BRAIN DAMAGE, NOT ELSEWHERE CLASSIFIED (4) Functional quadriplegia Code(s): R53.2 - FUNCTIONAL QUADRIPLEGIA Assessment/Plan Acute on Chronic Hypoxic and Hypercapneic Respiratory Failure Acute COPD Exacerbation Atelectasis vs Pneumonia Anoxic Brain Injury HTN Functional Quadriplegia Suspect recurrent microaspiration plan continue current mgmt resp support rest as per the team monitor
[2018-07-08] MEDS ORDERED: predniSONE 20 MG TABLET (UD) PO SCH (13:06)
--- NOTE | 2018-07-08 13:07 | PN ---
Teaching Attending Note Name of Resident: Jameel Foster ATTENDING PHYSICIAN STATEMENT I saw and evaluated the patient. I reviewed the resident's note and discussed the case with the resident. I agree with the resident's findings and plan as documented. SUBJECTIVE: No events over night OBJECTIVE: NAD, comfortable. on BIPAP CV : RRR Lungs: CTAB anteriorly Ext : No edema , + muscular atrophy. no heal ulcers Abd: soft, PEG in , nl BS ASSESSMENT AND PLAN: 67 y/o lady with h/o anoxic brain injury, seizures, HLP, HTN, GT placement, and COPD who presented with Hypoxia 1- Acute hypoxic, hypercapnic resp failure, due to Acute COPD exacerbation. Possible continued aspiration - Prednisone taper , will decrease to 20 in am - BIPAP q HS and as needed . Arrangements for BIPAP at [facility] - neb 2- Seizure disorder: cont her home meds 3- HTN: cont meds 4- Nutrition : TF Dispo :will DC back to [place] once BIPAP is arranged
--- NOTE | 2018-07-08 14:06 | DS ---
Physical Exam: SUBJECTIVE: Patient seen and examined at bedside. pt accepted to [place] by Dr. Vasquez and will be sent when BIPAP machine arrives. No events over night OBJECTIVE: Vital Signs Period Temp Pulse Resp BP Sys/Restrepo Pulse Ox Last 24 Hr 98.5 F-99 F 86-104 20-20 138-171/56-86 94-96 PHYSICAL EXAM GENERAL: NAD HEAD: Microcephaly EYES: PERRL ENT: Moist mucous membranes NECK: No JVD LUNGS: Diminished breath sounds at the bases, no wheezes, no crackles HEART: RRR, S1, S2 without murmur ABDOMEN: Soft, nondistended, + bowel sounds, GTube present without surrounding erythema or drainage EXTREMITIES: All extremities contracted, 1+ right pedal edema NEUROLOGICAL: Awake SKIN: Warm, Dry LABS IMAGING: -CXR: Levoscoliosis of the spine. No airspace opacities are seen in the visualized left lung. Elevated right diaphragm. No airspace opacities are seen in the right upper lung zone. No pneumothorax is seen. -CXR: Portion of the left lung is obscured by the thoracic spine. No airspace opacities are seen in the visualized lungs. No pneumothorax, or large pleural effusion is seen. Unable to evaluate adequately the cardiac silhouette. Old healed fracture proximal left humerus. -Chest CTA: No definite CT evidence of pulmonary embolism. Evaluation of the lower lobe subsegmental vessels is somewhat limited due to vessel crowding. Bilateral wedge-shaped lower lobe opacities are noted posteriorly consistent with atelectasis and/or infiltrates. Very small left-sided and trace right- sided pleural effusions are seen. -EKG: SINUS RHYTHM WITH SHORT IA, VR 100, QTc 397 HOSPITAL COURSE: Date of Admission:06/26/18 Date of Discharge: 07/08/18 67 y/o non-verbal Female with PMHx of anoxic brain injury, COPD (on 4L at home) , seizures, who was recently discharged from [facility] for Sepsis due to Pseudomonas UTI, presents from [facility] with Respiratory Distress. Admitted for Acute Hypercapneic Respiratory Failure Likely due to micro aspirations--Completed ABx zosyn course Imaging noted above. -Bilevel HS (17/07//40%)--[place] to [facility] machine for patient -Prednisone taper at mt. 20mg daily for 2 days (07/09-07/10) 10mg daily for 2 days (07/11-07/12) -Keep HOB elevated -Aspiration precautions #GTube dislodged--Now functional -Continue tube feeds #Hypertension -Metoprolol Tartrate has been increased to 50mg GT BID Amlodipine to 5mg GT Daily #HLD -Atorvastatin 20mg GT HS #GERD -Metoclopramide, Pantoprazole #Seizures -Levetiracetam, Valproate, Topiramate, Phenobarbital Code status: DNR pt is stable and ready for dc pt accepted to [facility] by Dr. Vasquez and will be sent when BIPAP machine arrives/received by [facility] Minutes to complete discharge: 38 Discharge Summary Reason For Visit: COPD Current Active Problems Acute on chronic respiratory failure with hypoxia and hypercapnia (Acute) Aspiration pneumonia (Acute) COPD exacerbation (Acute) Condition: Improved - Instructions Diet, Activity, Other Instructions: You were admitted to the hospital because you had a respiratory distress. You were treated with IV Antibiotics, IV Steroids, and Bipap as needed, and your symptoms improved. Medication Changes: 1. Your Metoprolol Tartrate (Lopressor) dose has been increased to 50mg twice a day 2. Your steroid (Prednisone) taper is as follows 20mg daily for 2 days (07/09-07/10) 10mg daily for 2 days (07/11-07/12) Additional Care 1. You are being discharged with BIPAP to be used if you enter respiratory distress or oxygen desaturation. setting are: spontaneous timed mode, IPAP 15, EPAP 5, 40% O2, Rate 14. please use bipap at night as needed and use in a upright position/35-45 degree angle. avoid food and use aspiration precautions 2 hours prior to and while on BIPAP Follow up with the following physicians: 1. Primary care physician in one week Continue all your other medications as prescribed Please return to the ER if you have any signs or symptoms of chest pain, shortness of breath, uncontrollable fever, chills, nausea, vomiting, numbness, tingling, or weakness in any part of your body, changes in vision, slurred speech, changes in speech/gait, or dizziness. Please return to the ER if symptoms persist, worsen, or new symptoms arise. Referrals: Arsenio Gann MD, MD [Staff Physician] - Liam Hickey MD [Staff Physician] - Arely Norman DO [Staff Physician] - Disposition: [facility] - Home Medications Comprehensive Discharge Medication List: Ambulatory Orders Alendronate Sodium [Binosto] 70 mg GT WEEKLY 06/12/18 Amlodipine Besylate 2.5 mg GT DAILY 06/12/18 Arformoterol Tartrate [Brovana] 1 vial NEB BID 06/12/18 Ascorbic Acid 500 mg GT BID 06/12/18 Budesonide [Pulmicort 0.5 mg Nebulizer -] 1 vial NEB BID 06/12/18 Calcium Carbonate/Vitamin D3 [Oystercal-D 500 mg-400 Unit Tb] 2 each GT HS 06/12 Ipratropium/Albuterol Sulfate [Iprat-Albut 0.5-3(2.5) mg/3 ml] 1 vial NEB QID Metoclopramide HCl 5 mg GT QID 06/12/18 Omeprazole 20 mg GT DAILY 06/12/18 Phenobarbital 32.4 mg GT BID 06/12/18 Protein Supplement [Promod] 30 ml GT DAILY 06/12/18 Silver Sulfadiazine [Silvadene] 20 gm TP BID 06/12/18 Simvastatin 40 mg GT DAILY 06/12/18 Topiramate 25 mg GT DAILY 06/12/18 Topiramate 200 mg GT BID 06/12/18 Valproate Sodium [Depakene -] 15 ml GT BID 06/12/18 Zinc Oxide 1 applic TP TID 06/12/18 levETIRAcetam [levETIRAcetam ORAL SUSPENSION] 15 ml GT BID 06/12/18 Albuterol 0.083% Nebulizer [place]at [Ventolin 0.083% Nebulizer Soln -] 1 amp NEB Q4H PRN #1 amp 06/24/18 Metoprolol Tartrate [Lopressor -] 25 mg GT BID #60 tablet 06/24/18 Olopatadine HCl [Pataday] 2.5 ml OU DAILY 06/26/18 Clotrimazole [Athletic Foot Cream] 30 gm TP BID 06/27/18 Lactulose 30 ml GT DAILY 06/27/18 Lactobacillus Acidophilus [Bacid -] 1 tab GT BID tab 07/05/18 Metoprolol Tartrate [Lopressor -] 50 mg GT BID #60 tablet 07/05/18 Miscellaneous Medical Supply [Outpatient Order] 1 each ASDIR #1 misc predniSONE [Deltasone -] 10 mg PO DAILY #20 tablet 07/05/18 - Discharge Referral Referred to [facility] No
--- NOTE | 2018-07-08 17:41 | PN ---
Physical Exam: SUBJECTIVE: Patient seen and examined at bedside. pt accepted to [facility] by Dr. Vasquez and will be sent when BIPAP machine arrives. No events over night OBJECTIVE: Vital Signs Period Temp Pulse Resp BP Sys/Restrepo Pulse Ox Last 24 Hr 98.5 F-99.0 F 81-104 20-20 115-171/56-77 94-96 GENERAL: NAD on bipap HEAD: Microcephaly EYES: PERRL ENT: Moist mucous membranes NECK: No JVD LUNGS: Diminished breath sounds at the bases, no wheezes, no crackles HEART: RRR, S1, S2 without murmur ABDOMEN: Soft, nondistended, + bowel sounds, GTube present without surrounding erythema or drainage EXTREMITIES: All extremities contracted, 1+ right pedal edema NEUROLOGICAL: Awake SKIN: Warm, Dry Active Medications Generic Name Dose Route Start Last Admin Trade Name Freq PRN Reason Stop Dose Admin Amino Acids 30 ml 06/27/18 10:00 07/08/18 09:59 Prosource No Carb Liquid Pkt GT 30 ml DAILY [facility] Administration Amlodipine Besylate 2.5 mg 06/27/18 10:00 07/08/18 10:03 Norvasc - GT 2.5 mg DAILY [facility] Administration Arformoterol Tartrate 1 amp 06/26/18 20:00 07/08/18 07:34 Brovana (Restricted To Pulmonology/Resp) - NEB 1 amp RBID [facility] Administration Ascorbic Acid 500 mg 06/26/18 22:00 07/08/18 10:04 Vitamin C - GT 500 mg BID [facility] Administration Atorvastatin Calcium 20 mg 06/26/18 22:00 07/07/18 21:15 Lipitor - PO 20 mg HS [facility] Administration Budesonide 1 amp 06/26/18 20:00 07/08/18 07:34 Pulmicort 0.5 Mg Nebulizer - NEB 1 amp RBID [facility] Administration Calcium Carbonate/Cholecalciferol 2 tab 06/26/18 22:00 07/07/18 21:15 Os-Jamar 500+D - GT 2 tab HS [facility] Administration Enoxaparin Sodium 40 mg 06/26/18 15:00 07/08/18 10:07 Lovenox - SQ 40 mg DAILY [facility] Administration Lactobacillus Acidophilus 1 tab 06/26/18 22:00 07/08/18 10:03 Bacid - GT 1 tab BID [facility] Administration Levetiracetam 1,500 mg 06/26/18 22:00 07/08/18 10:05 Keppra Oral Solution - GT 1,500 mg BID [facility] Administration Metoclopramide HCl 5 mg 06/26/18 18:00 07/08/18 17:22 Reglan Oral Solution - GT 5 mg QID [facility] Administration Metoprolol Tartrate 5 mg 06/27/18 08:14 Lopressor Injection - IVPB Q4H PRN HYPERTENSION Metoprolol Tartrate 50 mg 07/01/18 22:00 07/08/18 10:04 Lopressor - GT 50 mg BID [facility] Administration Miconazole Nitrate 1 applic 06/30/18 18:15 07/08/18 11:01 Miconazole Nitrate TP 1 applic DAILY [facility] Administration Multi-Ingredient Ointment 1 applic 06/26/18 22:00 07/08/18 16:02 Zinc Oxide TP 1 applic TID [facility] Administration Pantoprazole Sodium 40 mg 06/26/18 15:00 07/08/18 10:02 Protonix - PO 40 mg DAILY [facility] Administration Phenobarbital 30 mg 06/26/18 22:00 07/08/18 10:08 Phenobarbital - GT 30 mg BID [facility] Administration Prednisone 20 mg 07/08/18 13:06 Deltasone - PO DAILY [facility] Ranitidine HCl 150 mg 06/26/18 22:00 07/08/18 10:01 Zantac Oral Solution - GT 150 mg BID [facility] Administration Silver Sulfadiazine 1 applic 06/27/18 10:00 07/08/18 11:02 Silvadene - TP 1 applic DAILY [facility] Administration Topiramate 25 mg 06/27/18 10:00 07/08/18 10:02 Topamax - PO 25 mg DAILY [facility] Administration Topiramate 200 mg 06/26/18 22:00 07/08/18 10:04 Topamax - GT 200 mg BID [facility] Administration Valproate Sodium 750 mg 06/26/18 22:00 07/08/18 10:06 Depakene - GT 750 mg BID [facility] Administration IMAGING: -CXR: Levoscoliosis of the spine. No airspace opacities are seen in the visualized left lung. Elevated right diaphragm. No airspace opacities are seen in the right upper lung zone. No pneumothorax is seen. -CXR: Portion of the left lung is obscured by the thoracic spine. No airspace opacities are seen in the visualized lungs. No pneumothorax, or large pleural effusion is seen. Unable to evaluate adequately the cardiac silhouette. Old healed fracture proximal left humerus. -Chest CTA: No definite CT evidence of pulmonary embolism. Evaluation of the lower lobe subsegmental vessels is somewhat limited due to vessel crowding. Bilateral wedge-shaped lower lobe opacities are noted posteriorly consistent with atelectasis and/or infiltrates. Very small left-sided and trace right- sided pleural effusions are seen. -EKG: SINUS RHYTHM WITH SHORT MI, VR 100, QTc 397 ASSESSMENT/PLAN: 67 y/o non-verbal Female with PMHx of anoxic brain injury, COPD (on 4L at home) , seizures, who was recently discharged from [facility] for Sepsis due to Pseudomonas UTI, presents from [facility] with Respiratory Distress. Admitted for Acute Hypercapneic Respiratory Failure Likely due to micro aspirations--Completed ABx zosyn course Imaging noted above. -Bilevel HS (17/07/13/40%)--[facility] to rent machine for patient -Prednisone taper at [place]. 20mg daily for 2 days (07/09-07/10) 10mg daily for 2 days (07/11-07/12) -Keep HOB elevated -Aspiration precautions #GTube dislodged--Now functional -Continue tube feeds #Hypertension -Metoprolol Tartrate has been increased to 50mg GT BID Amlodipine to 5mg GT Daily #HLD -Atorvastatin 20mg GT HS #GERD -Metoclopramide, Pantoprazole #Seizures -Levetiracetam, Valproate, Topiramate, Phenobarbital Code status: DNR anticipate dc petros pt accepted to [facility] by Dr. Vasquez and will be sent when BIPAP machine arrives/received by [facility] Visit type - Emergency Visit Emergency Visit: Yes ED Registration Date: 06/26/18 Care time: The patient presented to the Emergency Department on the above date and was hospitalized for further evaluation of their emergent condition. - New Patient This patient is new to me today: Yes Date on this admission: 07/08/18 - Critical Care Critical Care patient: No
[2018-07-08] MEDS: CALCIUM 500MG/VIT-D 200 UNITS COMBO TABLET (FP) GT SCH (23:36)
[2018-07-08] MEDS: ATORVASTATIN CA 20 MG TABLET (FP) PO SCH (23:36)
[2018-07-09] MEDS: ZINC OXIDE 20% TOPICAL OINTMENT 30 GM TUBE TP SCH ×2 (06:28→15:50)
--- NOTE | 2018-07-09 07:24 | DS ---
Physical Exam: SUBJECTIVE: Patient seen and examined at bedside. pt accepted to [facility] by Dr. Vasquez and will be sent when BIPAP machine arrives. No events over night OBJECTIVE: Vital Signs Period Temp Pulse Resp BP Sys/Restrepo Pulse Ox Last 24 Hr 97.6 F-99.0 F 70-95 18-20 115-148/63-84 94-97 PHYSICAL EXAM GENERAL: NAD on bipap HEAD: Microcephaly EYES: PERRL ENT: Moist mucous membranes NECK: No JVD LUNGS: Diminished breath sounds at the bases, no wheezes, no crackles HEART: RRR, S1, S2 without murmur ABDOMEN: Soft, nondistended, + bowel sounds, GTube present without surrounding erythema or drainage EXTREMITIES: All extremities contracted, 1+ right pedal edema NEUROLOGICAL: Awake SKIN: Warm, Dry LABS IMAGING: -CXR: Levoscoliosis of the spine. No airspace opacities are seen in the visualized left lung. Elevated right diaphragm. No airspace opacities are seen in the right upper lung zone. No pneumothorax is seen. -CXR: Portion of the left lung is obscured by the thoracic spine. No airspace opacities are seen in the visualized lungs. No pneumothorax, or large pleural effusion is seen. Unable to evaluate adequately the cardiac silhouette. Old healed fracture proximal left humerus. -Chest CTA: No definite CT evidence of pulmonary embolism. Evaluation of the lower lobe subsegmental vessels is somewhat limited due to vessel crowding. Bilateral wedge-shaped lower lobe opacities are noted posteriorly consistent with atelectasis and/or infiltrates. Very small left-sided and trace right- sided pleural effusions are seen. -EKG: SINUS RHYTHM WITH SHORT NE, VR 100, QTc 397 HOSPITAL COURSE: Date of Admission:06/26/18 Date of Discharge: 07/09/18 67 y/o non-verbal Female with PMHx of anoxic brain injury, COPD (on 4L at home) , seizures, who was recently discharged from [facility] for Sepsis due to Pseudomonas UTI, presents from [facility] with Respiratory Distress. Admitted for Acute Hypercapneic Respiratory Failure Likely due to micro aspirations--Completed ABx zosyn course Imaging noted above. -Bilevel HS (///40%)--[facility] to rent machine for patient. we spoke w/ resp therapist at [facility] regarding bipap settings -Prednisone taper at dc. 20mg daily for 2 days (07/09-07/10) 10mg daily for 2 days (07/11-07/12) -Keep HOB elevated -Aspiration precautions #GTube dislodged--Now functional -Continue tube feeds #Hypertension -Metoprolol Tartrate has been increased to 50mg GT BID Amlodipine to 5mg GT Daily #HLD -Atorvastatin 20mg GT HS #GERD -Metoclopramide, Pantoprazole #Seizures -Levetiracetam, Valproate, Topiramate, Phenobarbital Code status: DNR pt accepted to [facility] by Dr. Vasquez pt will have BIPAP machine at [place]. Resp therapist and Dr. Vasquez contacted and updated regarding BIPAP settings pt stable and ready for dc w/ appropriate f/u Minutes to complete discharge: 39 Discharge Summary Reason For Visit: COPD Current Active Problems Acute on chronic respiratory failure with hypoxia and hypercapnia (Acute) Aspiration pneumonia (Acute) COPD exacerbation (Acute) Condition: Improved - Instructions Diet, Activity, Other Instructions: You were admitted to the hospital because you had a respiratory distress. You were treated with IV Antibiotics, IV Steroids, and Bipap as needed, and your symptoms improved. Medication Changes: 1. Your Metoprolol Tartrate (Lopressor) dose has been increased to 50mg twice a day 2. Your steroid (Prednisone) taper is as follows 20mg daily for 2 days (07/09-07/10) 10mg daily for 2 days (07/11-07/12) Additional Care 1. You are being discharged with BIPAP to be used if you enter respiratory distress or oxygen desaturation. setting are: spontaneous timed mode, IPAP 15, EPAP 5, 40% O2, Rate 14. please use bipap at night as needed and use in a upright position/35-45 degree angle. avoid food and use aspiration precautions 2 hours prior to and while on BIPAP Follow up with the following physicians: 1. Primary care physician in one week Continue all your other medications as prescribed Please return to the ER if you have any signs or symptoms of chest pain, shortness of breath, uncontrollable fever, chills, nausea, vomiting, numbness, tingling, or weakness in any part of your body, changes in vision, slurred speech, changes in speech/gait, or dizziness. Please return to the ER if symptoms persist, worsen, or new symptoms arise. Referrals: Liam Hickey MD [Staff Physician] - Arely Norman DO [Staff Physician] - Arsenio Gann MD, MD [Staff Physician] - Disposition: [facility] - Home Medications Comprehensive Discharge Medication List: Ambulatory Orders Alendronate Sodium [Binosto] 70 mg GT WEEKLY 06/12/18 Amlodipine Besylate 2.5 mg GT DAILY 06/12/18 Arformoterol Tartrate [Brovana] 1 vial NEB BID 06/12/18 Ascorbic Acid 500 mg GT BID 06/12/18 Budesonide [Pulmicort 0.5 mg Nebulizer -] 1 vial NEB BID 06/12/18 Calcium Carbonate/Vitamin D3 [Oystercal-D 500 mg-400 Unit Tb] 2 each GT HS 06/12 Ipratropium/Albuterol Sulfate [Iprat-Albut 0.5-3(2.5) mg/3 ml] 1 vial NEB QID Metoclopramide HCl 5 mg GT QID 06/12/18 Omeprazole 20 mg GT DAILY 06/12/18 Phenobarbital 32.4 mg GT BID 06/12/18 Protein Supplement [Promod] 30 ml GT DAILY 06/12/18 Silver Sulfadiazine [Silvadene] 20 gm TP BID 06/12/18 Simvastatin 40 mg GT DAILY 06/12/18 Topiramate 25 mg GT DAILY 06/12/18 Topiramate 200 mg GT BID 06/12/18 Valproate Sodium [Depakene -] 15 ml GT BID 06/12/18 Zinc Oxide 1 applic TP TID 06/12/18 levETIRAcetam [levETIRAcetam ORAL SUSPENSION] 15 ml GT BID 06/12/18 Albuterol 0.083% Nebulizer Montserrat [Ventolin 0.083% Nebulizer Soln -] 1 amp NEB Q4H PRN #1 amp 06/24/18 Metoprolol Tartrate [Lopressor -] 25 mg GT BID #60 tablet 06/24/18 Olopatadine HCl [Pataday] 2.5 ml OU DAILY 06/26/18 Clotrimazole [Athletic Foot Cream] 30 gm TP BID 06/27/18 Lactulose 30 ml GT DAILY 06/27/18 Lactobacillus Acidophilus [Bacid -] 1 tab GT BID tab 07/05/18 Metoprolol Tartrate [Lopressor -] 50 mg GT BID #60 tablet 07/05/18 Miscellaneous Medical Supply [Outpatient Order] 1 each ASDIR #1 misc Prednisone See Taper PO DAILY 4 Days #6 tab.ds.pk 07/08/18 This patient is new to me today: Yes Date on this admission: 07/09/18 Emergency Visit: Yes ED Registration Date: 06/26/18 Care time: The patient presented to the Emergency Department on the above date and was hospitalized for further evaluation of their emergent condition. Critical Care patient: No - Discharge Referral Referred to [facility] Med P.C.: No
[2018-07-09] MEDS: BUDESONIDE 0.5 MG/2 ML INH SUSP VIAL NEB SCH (08:01)
[2018-07-09] MEDS: ARFORMOTEROL TARTRATE 15 MCG/2 ML VIAL NEB SCH (08:01)
[2018-07-09] MEDS: LACTOBACILLUS ACIDOPHILUS 1 TABLET GT SCH (09:22)
[2018-07-09] MEDS: VALPROATE SODIUM 250 MG/5 ML UNIT DOSE CUP GT SCH (09:22)
[2018-07-09] MEDS: TOPIRAMATE 25 MG TABLET (FP) PO SCH (09:23)
[2018-07-09] MEDS: PANTOPRAZOLE 40 MG TABLET (FP) PO SCH (09:23)
[2018-07-09] MEDS: METOCLOPRAMIDE HCL 5 MG/5 ML UNIT DOSE CUP GT SCH ×2 (09:23→13:30)
[2018-07-09] MEDS: amLODIPine BESYLATE 2.5 MG TABLET (FP) GT SCH (09:23)
[2018-07-09] MEDS: AMINO ACIDS/PROTEIN HYDROLYS 30 ML LIQUID.PKT GT SCH (09:23)
[2018-07-09] MEDS: RANITIDINE HCL 150 MG/10 ML UNIT-DOSE GT SCH (09:23)
[2018-07-09] MEDS: METOPROLOL TARTRATE 50 MG TABLET (FP) GT SCH (09:23)
[2018-07-09] MEDS: ASCORBIC ACID 500 MG TABLET (FP) GT SCH (09:23)
[2018-07-09] MEDS: TOPIRAMATE 200 MG TABLET (FP) GT SCH (09:23)
[2018-07-09] MEDS: levETIRAcetam 500 MG/5 ML ORAL SOLUTION (UNIT-DOSE CUPS) GT SCH (09:23)
[2018-07-09] MEDS: MICONAZOLE NITRATE 28 GM TUBE TP SCH (09:24)
[2018-07-09] MEDS: SILVER SULFADIAZINE 1% TOP CREAM 50 GM JAR TP SCH (09:24)
--- NOTE | 2018-07-09 11:12 | PN ---
Progress Note (short form) - Note Progress Note: PULMONARY Pt nonverbal. Comfortable on nasal cannula, saturating 96% on my assessment. No fevers recorded. Vital Signs Period Temp Pulse Resp BP Sys/Restrepo Pulse Ox Last 24 Hr 97.6 F-99.0 F 70-86 18-19 115-144/63-84 95-97 Gen: NAD at rest Heart: RRR Lung: decreased breath sounds at the bases Abd: soft, nontender Ext: no edema CBC, BMP 07/03/18 06:20 07/04/18 05:15 Active Medications Amino Acids (Prosource No Carb Liquid Pkt) 30 ml GT DAILY [facility] Last Admin: 07/09/18 09:23 Dose: 30 ml Amlodipine Besylate (Norvasc -) 2.5 mg GT DAILY [facility] Last Admin: 07/09/18 09:23 Dose: 2.5 mg Arformoterol Tartrate (Brovana (Restricted To Pulmonology/Resp) -) 1 amp NEB RBID [facility] Last Admin: 07/09/18 08:01 Dose: 1 amp Ascorbic Acid (Vitamin C -) 500 mg GT BID [facility] Last Admin: 07/09/18 09:23 Dose: 500 mg Atorvastatin Calcium (Lipitor -) 20 mg PO HS [facility] Last Admin: 07/08/18 23:36 Dose: 20 mg Budesonide (Pulmicort 0.5 Mg Nebulizer -) 1 amp NEB RBID [facility] Last Admin: 07/09/18 08:01 Dose: 1 amp Calcium Carbonate/Cholecalciferol (Os-Jamar 500+D -) 2 tab GT HS [facility] Last Admin: 07/08/18 23:36 Dose: 2 tab Lactobacillus Acidophilus (Bacid -) 1 tab GT BID [facility] Last Admin: 07/09/18 09:22 Dose: 1 tab Levetiracetam (Keppra Oral Solution -) 1,500 mg GT BID [facility] Last Admin: 07/09/18 09:23 Dose: 1,500 mg Metoclopramide HCl (Reglan Oral Solution -) 5 mg GT QID [facility] Last Admin: 07/09/18 09:23 Dose: 5 mg Metoprolol Tartrate (Lopressor Injection -) 5 mg IVPB Q4H PRN PRN Reason: HYPERTENSION Metoprolol Tartrate (Lopressor -) 50 mg GT BID [facility] Last Admin: 07/09/18 09:23 Dose: 50 mg Miconazole Nitrate (Miconazole Nitrate) 1 applic TP DAILY [facility] Last Admin: 07/09/18 09:24 Dose: 1 applic Multi-Ingredient Ointment (Zinc Oxide) 1 applic TP TID [facility] Last Admin: 07/09/18 06:28 Dose: 1 applic Pantoprazole Sodium (Protonix -) 40 mg PO DAILY [facility] Last Admin: 07/09/18 09:23 Dose: 40 mg Prednisone (Deltasone -) 20 mg PO DAILY [facility] Last Admin: 07/09/18 09:22 Dose: 20 mg Ranitidine HCl (Zantac Oral Solution -) 150 mg GT BID [facility] Last Admin: 07/09/18 09:23 Dose: 150 mg Silver Sulfadiazine (Silvadene -) 1 applic TP DAILY [facility] Last Admin: 07/09/18 09:24 Dose: 1 applic Topiramate (Topamax -) 25 mg PO DAILY [facility] Last Admin: 07/09/18 09:23 Dose: 25 mg Topiramate (Topamax -) 200 mg GT BID [facility] Last Admin: 07/09/18 09:23 Dose: 200 mg Valproate Sodium (Depakene -) 750 mg GT BID [facility] Last Admin: 07/09/18 09:22 Dose: 750 mg A/P Acute on Chronic Hypoxic and Hypercapneic Respiratory Failure improving Acute COPD Exacerbation improved Atelectasis vs Pneumonia Anoxic Brain Injury HTN Functional Quadriplegia Suspect recurrent microaspiration - prednisone taper - inhaled bronchodilators - O2 to keep SpO2 >90% - BiPAP as needed - aspiration precautions - DVT prophylaxis - pt DNR - d/c planning in progress Problem List - Problems (1) Acute on chronic respiratory failure with hypoxia and hypercapnia Code(s): J96.21 - ACUTE AND CHRONIC RESPIRATORY FAILURE WITH HYPOXIA; J96.22 - ACUTE AND CHRONIC RESPIRATORY FAILURE WITH HYPERCAPNIA (2) COPD exacerbation Code(s): J44.1 - CHRONIC OBSTRUCTIVE PULMONARY DISEASE W (ACUTE) EXACERBATION (3) Anoxic brain damage Code(s): G93.1 - ANOXIC BRAIN DAMAGE, NOT ELSEWHERE CLASSIFIED (4) Functional quadriplegia Code(s): R53.2 - FUNCTIONAL QUADRIPLEGIA
--- NOTE | 2018-07-09 11:46 | PN ---
Progress Note, Physician - Current Medication List Current Medications: Active Medications Amino Acids (Prosource No Carb Liquid Pkt) 30 ml GT DAILY [facility] Last Admin: 07/09/18 09:23 Dose: 30 ml Amlodipine Besylate (Norvasc -) 2.5 mg GT DAILY [facility] Last Admin: 07/09/18 09:23 Dose: 2.5 mg Arformoterol Tartrate (Brovana (Restricted To Pulmonology/Resp) -) 1 amp NEB RBID [facility] Last Admin: 07/09/18 08:01 Dose: 1 amp Ascorbic Acid (Vitamin C -) 500 mg GT BID [facility] Last Admin: 07/09/18 09:23 Dose: 500 mg Atorvastatin Calcium (Lipitor -) 20 mg PO HS [facility] Last Admin: 07/08/18 23:36 Dose: 20 mg Budesonide (Pulmicort 0.5 Mg Nebulizer -) 1 amp NEB RBID [facility] Last Admin: 07/09/18 08:01 Dose: 1 amp Calcium Carbonate/Cholecalciferol (Os-Jamar 500+D -) 2 tab GT [facility] Last Admin: 07/08/18 23:36 Dose: 2 tab Lactobacillus Acidophilus (Bacid -) 1 tab GT BID [facility] Last Admin: 07/09/18 09:22 Dose: 1 tab Levetiracetam (Keppra Oral Solution -) 1,500 mg GT BID [facility] Last Admin: 07/09/18 09:23 Dose: 1,500 mg Metoclopramide HCl (Reglan Oral Solution -) 5 mg GT QID [facility] Last Admin: 07/09/18 09:23 Dose: 5 mg Metoprolol Tartrate (Lopressor Injection -) 5 mg IVPB Q4H PRN PRN Reason: HYPERTENSION Metoprolol Tartrate (Lopressor -) 50 mg GT BID [facility] Last Admin: 07/09/18 09:23 Dose: 50 mg Miconazole Nitrate (Miconazole Nitrate) 1 applic TP DAILY [facility] Last Admin: 07/09/18 09:24 Dose: 1 applic Multi-Ingredient Ointment (Zinc Oxide) 1 applic TP TID [facility] Last Admin: 07/09/18 06:28 Dose: 1 applic Pantoprazole Sodium (Protonix -) 40 mg PO DAILY [facility] Last Admin: 07/09/18 09:23 Dose: 40 mg Prednisone (Deltasone -) 20 mg PO DAILY [facility] Last Admin: 07/09/18 09:22 Dose: 20 mg Ranitidine HCl (Zantac Oral Solution -) 150 mg GT BID [facility] Last Admin: 07/09/18 09:23 Dose: 150 mg Silver Sulfadiazine (Silvadene -) 1 applic TP DAILY [facility] Last Admin: 07/09/18 09:24 Dose: 1 applic Topiramate (Topamax -) 25 mg PO DAILY [facility] Last Admin: 07/09/18 09:23 Dose: 25 mg Topiramate (Topamax -) 200 mg GT BID [facility] Last Admin: 07/09/18 09:23 Dose: 200 mg Valproate Sodium (Depakene -) 750 mg GT BID [facility] Last Admin: 07/09/18 09:22 Dose: 750 mg - Objective Vital Signs: Vital Signs Temperature 97.6 F 07/09/18 05:55 Pulse Rate 70 07/09/18 05:55 Respiratory Rate 18 07/09/18 05:55 Blood Pressure 129/69 07/09/18 05:55 O2 Sat by Pulse Oximetry (%) 95 07/09/18 08:02 Labs: CBC, BMP 07/03/18 06:20 07/04/18 05:15
[2018-07-09 13:59] VITALS: BP 146/80; PULSE 89; TEMP 99.3
--- NOTE | 2018-07-09 18:26 | PN ---
Teaching Attending Note Name of Resident: Edi Reardon ATTENDING PHYSICIAN STATEMENT I saw and evaluated the patient. I reviewed the resident's note and discussed the case with the resident. I agree with the resident's findings and plan as documented. SUBJECTIVE: No events over night OBJECTIVE: NAD, comfortable. on BIPAP CV : RRR Lungs: CTAB anteriorly Ext : No edema , + muscular atrophy. no heal ulcers Abd: soft, PEG in , nl BS ASSESSMENT AND PLAN: 67 y/o lady with h/o anoxic brain injury, seizures, HLP, HTN, GT placement, and COPD who presented with Hypoxia 1- Acute hypoxic, hypercapnic resp failure, due to Acute COPD exacerbation. Possible continued aspiration - Prednisone taper at dc - BIPAP q HS and as needed . Arrangements for BIPAP at [facility] done - nebs 2- Seizure disorder: cont her home meds 3- HTN: cont meds 4- Nutrition : TF Dispo :Dc back to [place] today
== END 2018-07-09 16:26 | disposition home or self-care (01) | DRG 177 ==
LOC: JER 11:21 → JERBED 14:35 → J6S 16:13
PROVIDERS: ADMIT Internal Medicine; ATTEND Internal Medicine
PROC: 0D20XUZ Change Feeding Device in Upper Intestinal Tract, External Approach (ICD-10-PCS; principal; 2018-06-30)
DX: J69.0 Pneumonitis due to inhalation of food and vomit (principal); R53.2 Functional quadriplegia; J96.21 Acute and chronic respiratory failure with hypoxia; J96.22 Acute and chronic respiratory failure with hypercapnia; G93.1 Anoxic brain damage, not elsewhere classified; J44.1 Chronic obstructive pulmonary disease with (acute) exacerbation; J98.11 Atelectasis; Z43.1 Encounter for attention to gastrostomy; R00.0 Tachycardia, unspecified; E78.5 Hyperlipidemia, unspecified; I10 Essential (primary) hypertension; M84.422G Pathological fracture, left humerus, subsequent encounter for fracture with delayed healing; G40.909 Epilepsy, unspecified, not intractable, without status epilepticus; D72.829 Elevated white blood cell count, unspecified; M62.50 Muscle wasting and atrophy, not elsewhere classified, unspecified site; Z74.01 Bed confinement status; Z93.1 Gastrostomy status
CPT/HCPCS: 36415; 36600; 71045-TC-FY; 71275-TC; 74018-TC-FY; 80048; 80053; 82550; 82803; 83735; 83880; 84100; 84484; 85025; 87040; 93005; 93010; 94640; 94660; 94761; 97161-GP; 99285-25

== ENCOUNTER 2018-07-30 10:37 | Inpatient (IN) | payer OTHER | END 2018-08-08 17:28 | disposition home or self-care (01) | LOC: JER 10:37 → JERBED 12:35 → J5S 15:02 ==

== ENCOUNTER 2018-10-09 11:29 | Inpatient (IN) | payer OTHER ==
[2018-10-09] MEDS ORDERED: ALBUTEROL SO4 0.083% IH SOL 2.5 MG/3 ML VIAL.NEB. NEB ONE (11:39)
[2018-10-09] MEDS ORDERED: DEXAMETHASONE SOD PHOSPHATE 10 MG/1 ML VIAL ONE (11:55)
[2018-10-09] MEDS ORDERED: ALBUTEROL SO4 2.5/IPRATROPIUM 0.5 INH SOL 3 ML VIAL.NEB. NEB ONE ×3 (11:59→12:00)
[2018-10-09 12:05] VITALS: BMI 30.5
[2018-10-09 12:35] LABS: BASO % 0.1 % (0-2.0); EOS % 0.6 % (0-4.5); HEMATOCRIT 41.9 % (32.4-45.2); HEMOGLOBIN 13.8 GM/dL (10.7-15.3); LYMPH % 7.6 % (8-40); MCH 30.2 pg (25.7-33.7); MCHC 32.9 g/dl (32.0-36.0); MEAN CELL VOLUME 91.6 fl (80-96); MEAN PLT VOLUME 8.3 fl (7.5-11.1); MONO % 6.9 % (3.8-10.2); NEUT % 84.8 % (42.8-82.8); PLATELET COUNT 308 K/MM3 (134-434); RBC 4.58 M/mm3 (3.60-5.2); WHITE BLOOD COUNT 11.2 K/mm3 (4.0-10.0)
[2018-10-09 12:49] LABS: INR 1.03 (0.83-1.09); PROTHROMBIN TIME (PATIENT) 12.2 SEC (9.7-13.0)
[2018-10-09 13:01] LABS: ALBUMIN 2.5 g/dl (3.4-5.0); ALK PHOS 533 U/L (45-117); ANION GAP 7 MMOL/L (8-16); BILIRUBIN,TOTAL < 0.1 mg/dL (0.2-1); BLOOD UREA NITROGEN 15.2 mg/dL (7-18); CALCIUM 8.6 mg/dL (8.5-10.1); CHLORIDE 100 mmol/L (98-107); CO2 31 mmol/L (21-32); CREATININE 0.3 mg/dL (0.55-1.3); GLUCOSE,RANDOM 122 mg/dL (74-106); POTASSIUM 4.2 mmol/L (3.5-5.1); SGOT/AST 51 U/L (15-37); SGPT/ALT 48 U/L (13-61); SODIUM 138 mmol/L (136-145); TOT PROT 7.2 g/dl (6.4-8.2)
--- NOTE | 2018-10-09 13:01 | PDOC ---
History of Present Illness - General Chief Complaint: Shortness of Breath Stated Complaint: Shortness of Breath History Source: Patient Exam Limitations: No Limitations - History of Present Illness Initial Comments: 67 y/o F w/PMH of MR, anoxic brain injury, aspiration pna, uti, CVA, COPD, HTN, HLD, epilepsy, PEG tube presents from [facility] for hypoxia. Per the practical nursing instructor at bedside, she had hypoxia this morning. Normally she is on bipap at night. Per the chart review, the patient was recently at [facility] on 07/30-08/08 for pseudomonoas UTI and PNA of which she was treated with zosyn and requiring medrol daily for suspected aspiration pneumonitis. Per Morris's notes, the patient had increased WOB with intercostal retractions that were not improving post suctioning and nebulizer treatment x2 (given brovana and atrovent at 8:30 am) and duoneb at 10:30 am. Was at 92-93% on bipap. The patient is unable to provide a history given her mental status and non verbal state. Normal bipap setting at IPAP 15, EPAP 5, O2 at 40% with rate 14. Allergies: NKDA Medications: metoprolol, phenobarb, topiramate, levetriacetam, valproic acid, simvastatin, amlodipine, alendronate, metoclopramide, olopatadine, Past History - Past Medical History Allergies/Adverse Reactions: Allergies Allergy/AdvReac Type Severity Reaction Status Date / Time No Known Allergies Allergy Verified 06/26/18 11:56 Home Medications: Ambulatory Orders Albuterol 2.5/Ipratropium 0.5 [Duoneb -] 1 neb IH QID 10/09/18 Alendronate Sodium 70 mg GT DAILY 10/09/18 Amlodipine Besylate [Norvasc -] 2.5 mg PO DAILY 10/09/18 Arformoterol Tartrate [Brovana] 15 mcg IH BID 10/09/18 Ascorbic Acid 500 mg GT BID 10/09/18 Bacitracin - [Bacitracin Topical Ointment -] 1 applic TP TID 10/09/18 Budesonide 1 mg IH BID 10/09/18 Calcium (Oyster Shell) [Os-Jamar 500Mg -] 500 mg NR BID 10/09/18 Clotrimazole/Betamethasone Dip [Clotrimazole-Betamethasone Crm] 45 gm TP BID 09/20 Lactobacillus Acidophilus [Acidophilus] 1 each PO BID 10/09/18 Lactulose 10 gm GT DAILY 10/09/18 Metoclopramide HCl 5 mg PO DAILY 10/09/18 Metoprolol Tartrate 25 mg PO BID 10/09/18 Multivitamin/Iron/Folic Acid [Centrum Adults Tablet] 1 each GT DAILY 10/09/18 Olopatadine HCl 2.5 ml OP DAILY 10/09/18 Protein Supplement [Promod] 30 ml GT DAILY 10/09/18 Silver Sulfadiazine 1% Top Cr [Silvadene -] 1 applic TP DAILY 10/09/18 Simvastatin 40 mg GT DAILY 10/09/18 Zinc Oxide 20% Topical Oint 60 gm TD ASDIR 10/09/18 CVA: Yes COPD: Yes (BIPAP DEP) GI Disorders: Yes (G TUBE) HTN: Yes Hypercholesterolemia: Yes Seizures: Yes (EPILEPSY) - Surgical History GI Surgery: Yes (PEG tube) - Immunization History Immunization Up to Date: No - Suicide/Smoking/Psychosocial Hx Smoking History: Unknown if ever smoked Have you smoked in the past 12 months: No Hx Alcohol Use: No Drug/Substance Use Hx: No Substance Use Type: None Hx Substance Use Treatment: No Review of Systems - Review of Systems Able to Perform ROS?: No (non verbal) *Physical Exam - Vital Signs Last Vital Signs Temp Pulse Resp BP Pulse Ox 103 H 22 H 153/84 95 10/09/18 11:59 10/09/18 11:59 10/09/18 11:59 10/09/18 11:59 - Physical Exam General Appearance: Yes: Nourished, Appropriately Dressed, Mild Distress. No: Intoxicated HEENT: positive: EOMI. negative: DONOVAN (cataracts in the left eye), Pale Conjunctivae, Scleral Icterus (R), Scleral Icterus (L), Nasal Congestion, Rhinorrhea Neck: positive: Trachea midline, Supple. negative: Tender, Lymphadenopathy (R) , Lymphadenopathy (L), Tender lateral, Tender midline Respiratory/Chest: positive: Respiratory Distress, Accessory Muscle Use, Decreased Breath Sounds, Rhonchi (bilaterally), Wheezing (right lung). negative : Chest Tender, Lungs Clear, Normal Breath Sounds, Stridor Cardiovascular: positive: Regular Rhythm, Regular Rate, S1, S2. negative: Systolic Murmur Gastrointestinal/Abdominal: positive: Normal Bowel Sounds, Flat, Soft, Other ( distended abdomen. peg tube in place without erythema and purulent discharge at the PEG site). negative: Tender, Distended, Guarding, Rebound Lymphatic: negative: Adenopathy Musculoskeletal: positive: Normal Inspection. negative: CVA Tenderness, Vertebral Tenderness Extremity: positive: Normal Capillary Refill, Normal Inspection, Normal Range of Motion. negative: Tender, Swelling, Calf Tenderness Integumentary: positive: Normal Color, Dry, Warm. negative: Swelling, Ecchymosis Neurologic: positive: Respond to painful stimul. negative: Fully Oriented, Alert, Normal Mood/Affect ED Treatment Course - LABORATORY CBC & Chemistry Diagram: 10/10/18 05:35 10/10/18 05:35 - ADDITIONAL ORDERS Additional order review: Laboratory Results 10/09/18 10/09/18 12:10 12:10 PT with INR 12.20 INR 1.03 Lactic Acid 2.0 10/09/18 12:10 RBC 4.58 MCV 91.6 MCHC 32.9 RDW 14.0 MPV 8.3 D Neutrophils % 84.8 H Lymphocytes % 7.6 L D Monocytes % 6.9 Eosinophils % 0.6 Basophils % 0.1 - Medications Given in the ED: ED Medications Discontinued Medications Generic Name Dose Route Start Last Admin Trade Name Freq PRN Reason Stop Dose Admin Albuterol/Ipratropium 1 amp 10/09/18 11:59 10/09/18 12:07 Duoneb - NEB 10/09/18 12:00 1 amp ONCE ONE Administration Albuterol/Ipratropium 1 amp 10/09/18 12:00 10/09/18 12:00 Duoneb - NEB 10/09/18 12:01 1 amp ONCE ONE Administration Albuterol/Ipratropium 1 amp 10/09/18 12:00 10/09/18 12:07 Duoneb - NEB 10/09/18 12:01 1 amp ONCE ONE Administration Medical Decision Making - Medical Decision Making 67 y/o F w/PMH of MR, anoxic brain injury, aspiration pna, uti, CVA, COPD, HTN, HLD, epilepsy, PEG tube presents from [facility] for hypoxia. Initial vitals: Initial Vital Signs Pulse Ox 99 10/09/18 11:50 Work up: patient is afebrile by rectal temperature. Patient is non verbal. Has increased WOB per Mir. albuterol nebulizer was given by the [facility] and 4 x duoneb given here in the emergency department with 10 mg dexamethasone. Currently on bipap 12 IPAP/ 5 EPAP 40% FiO2 and 14 RR saturating at 98% O2. Patient has septic work up initiated and pending CXR. Laboratory Tests 10/09/18 10/09/18 10/09/18 12:10 12:10 12:10 WBC 11.2 H RBC 4.58 Hgb 13.8 Hct 41.9 MCV 91.6 MCH 30.2 MCHC 32.9 RDW 14.0 Plt Count 308 D MPV 8.3 D Absolute Neuts (auto) 9.5 H Neutrophils % 84.8 H Lymphocytes % 7.6 L D Monocytes % 6.9 Eosinophils % 0.6 Basophils % 0.1 Nucleated RBC % 0 PT with INR INR VBG pH POC VBG pCO2 POC VBG pO2 VBG HCO3 VBG O2 Sat (Eugenio) VBG Base Excess Sodium 138 Potassium 4.2 Chloride 100 Carbon Dioxide 31 Anion Gap 7 L BUN 15.2 Creatinine 0.3 L Est GFR (CKD-EPI)AfAm 139.26 Est GFR (CKD-EPI)NonAf 120.15 Random Glucose 122 H Lactic Acid Calcium 8.6 Magnesium 2.6 H Total Bilirubin < 0.1 L AST 51 H ALT 48 Alkaline Phosphatase 533 H Creatine Kinase 56 Troponin I < 0.02 B-Natriuretic Peptide 91.4 Total Protein 7.2 Albumin 2.5 L Blood Type Antibody Screen 10/09/18 10/09/18 10/09/18 12:10 12:10 12:10 WBC RBC Hgb Hct MCV MCH MCHC RDW Plt Count MPV Absolute Neuts (auto) Neutrophils % Lymphocytes % Monocytes % Eosinophils % Basophils % Nucleated RBC % PT with INR 12.20 INR 1.03 VBG pH POC VBG pCO2 POC VBG pO2 VBG HCO3 VBG O2 Sat (Eugenio) VBG Base Excess Sodium Potassium Chloride Carbon Dioxide Anion Gap BUN Creatinine Est GFR (CKD-EPI)AfAm Est GFR (CKD-EPI)NonAf Random Glucose Lactic Acid 2.0 Calcium Magnesium Total Bilirubin AST ALT Alkaline Phosphatase Creatine Kinase Troponin I B-Natriuretic Peptide Total Protein Albumin Blood Type O POSITIVE Antibody Screen Negative 10/09/18 13:00 WBC RBC Hgb Hct MCV MCH MCHC RDW Plt Count MPV Absolute Neuts (auto) Neutrophils % Lymphocytes % Monocytes % Eosinophils % Basophils % Nucleated RBC % PT with INR INR VBG pH 7.23 L POC VBG pCO2 76.8 H* POC VBG pO2 110 H VBG HCO3 31.1 H VBG O2 Sat (Eugenio) 96.5 H VBG Base Excess 1.3 Sodium Potassium Chloride Carbon Dioxide Anion Gap BUN Creatinine Est GFR (CKD-EPI)AfAm Est GFR (CKD-EPI)NonAf Random Glucose Lactic Acid Calcium Magnesium Total Bilirubin AST ALT Alkaline Phosphatase Creatine Kinase Troponin I B-Natriuretic Peptide Total Protein Albumin Blood Type Antibody Screen leukocytosis noted. no definite infiltrate noted on CXR although limited study. the patient has respiratory acidosis with appropriate compensation. Patient has maintained adequate BP and o2% throughout her stay. She was given 1 atrovent and 1 duoneb at her facility before receiving 1x duoneb by EMS and 4x duoneb treatments at our facility with 10 mg of dexamethasone. Saturations improved greatly. Patient to be started on vancomycin and zosyn for possible early PNA and will be admitted as well for acute CHF exacerbation. Dispo: Admit *DC/Admit/Observation/Transfer Diagnosis at time of Disposition: COPD exacerbation, PEG (percutaneous endoscopic gastrostomy) status, Scoliosis deformity of spine - Referrals - Patient Instructions - Post Discharge Activity
[2018-10-09 13:02] LABS: MAGNESIUM 2.6 mg/dL (1.8-2.4); N-TERMINAL BNP 91.4 pg/ml (5-125)
[2018-10-09 13:26] LABS: VENOUS PH 7.23 (7.31-7.41)
[2018-10-09] MEDS ORDERED: PIPERACILLIN/TAZOB 3.375 GM 3.375 GM in DEXTROSE 5%-WATER - 50 ML IVPB ONE (13:30)
[2018-10-09] MEDS ORDERED: VANCOMYCIN 1,000 MG in DEXTROSE 5%-WATER - 250 ML IVPB ONE (13:30)
[2018-10-09 13:31] LABS: VENOUS PC02 76.8 mmHg (41-51)
[2018-10-09] MEDS ORDERED: VANCOMYCIN 1 GRAM (PRE-DOCKED) 1,000 MG/250 ML BAG IVPB ONE (14:37)
[2018-10-09] MEDS ORDERED: PIPERACILLIN/TAZOB 3.375 GM 3.375 GM/50 ML BAG IVPB ONE (14:38)
--- NOTE | 2018-10-09 15:37 | CONSULT ---
Consultation: REQUESTING PROVIDER: HISTORY OF PRESENT ILLNESS: 67 year old female with a PMHx of MR, anoxic brain injury, aspiration PNA, UTI, CVA, COPD, HTN, HLD presents from [facility] for hypoxia. Primary team requested ICU consult as patient has experienced increased secretions and requires frequent suctioning. HPI as per EMR, jail papers as patient is non-verbal: Patient noted to have increased WOB morning including intercostal muscle use s/p nebulizer treatments and frequent suctioning patient saturating 92-93% on BIPAP. At baseline patient uses Bipap nocturnally. PHYSICAL EXAMINATION Vital Signs - 24 hr 10/09/18 10/09/18 10/09/18 11:50 11:59 13:10 Pulse Rate 103 H Respiratory 22 H Rate Blood Pressure 153/84 O2 Sat by Pulse 99 95 99 Oximetry (%) 10/09/18 15:00 Pulse Rate Respiratory Rate Blood Pressure O2 Sat by Pulse 99 Oximetry (%) General: On Bipap, Drowsy CV: S1, S2, RRR, Tachycardic Respiratory: scattered rhonchi, no wheeze/crackles Abdomen: distended, hypoactive bowel sounds; peg tube site C/D/I Extremity: 2+ DP pulses B/L, contracted UE/LE Laboratory Results - last 24 hr 10/09/18 10/09/18 10/09/18 12:10 12:10 12:10 WBC 11.2 H RBC 4.58 Hgb 13.8 Hct 41.9 MCV 91.6 MCH 30.2 MCHC 32.9 RDW 14.0 Plt Count 308 D MPV 8.3 D Absolute Neuts (auto) 9.5 H Neutrophils % 84.8 H Lymphocytes % 7.6 L D Monocytes % 6.9 Eosinophils % 0.6 Basophils % 0.1 Nucleated RBC % 0 PT with INR INR VBG pH POC VBG pCO2 POC VBG pO2 VBG HCO3 VBG O2 Sat (Eugenio) VBG Base Excess Sodium 138 Potassium 4.2 Chloride 100 Carbon Dioxide 31 Anion Gap 7 L BUN 15.2 Creatinine 0.3 L Est GFR (CKD-EPI)AfAm 139.26 Est GFR (CKD-EPI)NonAf 120.15 Random Glucose 122 H Lactic Acid Calcium 8.6 Magnesium 2.6 H Total Bilirubin < 0.1 L AST 51 H ALT 48 Alkaline Phosphatase 533 H Creatine Kinase 56 Troponin I < 0.02 B-Natriuretic Peptide 91.4 Total Protein 7.2 Albumin 2.5 L Blood Type Antibody Screen 10/09/18 10/09/18 10/09/18 12:10 12:10 12:10 WBC RBC Hgb Hct MCV MCH MCHC RDW Plt Count MPV Absolute Neuts (auto) Neutrophils % Lymphocytes % Monocytes % Eosinophils % Basophils % Nucleated RBC % PT with INR 12.20 INR 1.03 VBG pH POC VBG pCO2 POC VBG pO2 VBG HCO3 VBG O2 Sat (Eugenio) VBG Base Excess Sodium Potassium Chloride Carbon Dioxide Anion Gap BUN Creatinine Est GFR (CKD-EPI)AfAm Est GFR (CKD-EPI)NonAf Random Glucose Lactic Acid 2.0 Calcium Magnesium Total Bilirubin AST ALT Alkaline Phosphatase Creatine Kinase Troponin I B-Natriuretic Peptide Total Protein Albumin Blood Type O POSITIVE Antibody Screen Negative 10/09/18 13:00 WBC RBC Hgb Hct MCV MCH MCHC RDW Plt Count MPV Absolute Neuts (auto) Neutrophils % Lymphocytes % Monocytes % Eosinophils % Basophils % Nucleated RBC % PT with INR INR VBG pH 7.23 L POC VBG pCO2 76.8 H* POC VBG pO2 110 H VBG HCO3 31.1 H VBG O2 Sat (Eugenio) 96.5 H VBG Base Excess 1.3 Sodium Potassium Chloride Carbon Dioxide Anion Gap BUN Creatinine Est GFR (CKD-EPI)AfAm Est GFR (CKD-EPI)NonAf Random Glucose Lactic Acid Calcium Magnesium Total Bilirubin AST ALT Alkaline Phosphatase Creatine Kinase Troponin I B-Natriuretic Peptide Total Protein Albumin Blood Type Antibody Screen ASSESSMENT/PLAN: 67 year old female with MMP including Acute on Chronic Hypoxic and Hypercapneic RF, currently acute RD with hypoxemia, on empiric therapy for presumptive HCAP. At the time of evaluation patient breathing comfortably, SpO2 98% on Bipap. At this time patient not a candidate for ICU admission. Thank you for this consultative opportunity. Visit type - Emergency Visit Emergency Visit: Yes ED Registration Date: 10/09/18 Care time: The patient presented to the Emergency Department on the above date and was hospitalized for further evaluation of their emergent condition. - New Patient This patient is new to me today: Yes Date on this admission: 10/09/18 - Critical Care Critical Care patient: No ATTENDING PHYSICIAN STATEMENT I saw and evaluated the patient. I reviewed the resident's note and discussed the case with the resident. I agree with the resident's findings and plan as documented. SUBJECTIVE: OBJECTIVE: ASSESSMENT AND PLAN:
--- NOTE | 2018-10-09 16:09 | PDOC ---
Documentation entered by My Smalls SCRIBE, acting as scribe for Gilberto Pete MD. Gilberto Pete MD: This documentation has been prepared by the scribe, My Smalls SCRIBE, under my direction and personally reviewed by me in its entirety. I confirm that the documentation accurately reflects all work, treatment, procedures, and medical decision making performed by me. Attending Attestation - Resident Resident Name: Hitesh Harper - ED Attending Attestation I have performed the following: I have examined & evaluated the patient, The case was reviewed & discussed with the resident, I agree w/resident's findings & plan, Exceptions are as noted - HPI HPI: 10/09/18 13:31 The patient is a 67-year-old female, with a past medical history of MR, anoxic brain injury, aspiration pna, UTI, CVA, COPD, HTN, HLD, seizure, PEG tube in place, on bipap at night, who was sent to the ED from [facility] for hypoxia. kennel aide is at the bedside and is providing history. HPI is limited due to patients clinical decision. - Physicial Exam PE: On BiPAP, obese, does not respond to touch or verbal commands Normocephalic Conjunctiva are pink no JVD Decreased breath sounds bilaterally with coarseness bilaterally, rhonchi present bilaterally; intercostal retractions noted bilaterally rrr, tachycardic Contracted extremities: upper and lower - Medical Decision Making 10/09/18 16:08 Patient 67-year-old female, with history of anoxic encephalopathy, COPD, hypertension presents with acute respiratory distress with hypoxemia. Signs and symptoms are consistent with clinical pneumonia. Patient is 99 rectally. Blood cultures obtained. Combivent and Decadron administered; We'll administer broad- spectrum antibiotics for hospital-acquired pneumonia. ICU screened and rejected. Will admit to telemetry further evaluation and treatment.
[2018-10-09 16:45] LABS: EPI CELLS 0.6 /HPF (0-5/HPF); HYALINE CASTS 6 /lpf (0-8); URINE APPEARANCE CLEAR; URINE BACTERIA 150.7 /hpf (NEGATIVE); URINE BILIRUBIN NEGATIVE (NEGATIVE); URINE COLOR YELLOW; URINE GLUCOSE (UA) NEGATIVE (NEGATIVE); URINE KETONE NEGATIVE (NEGATIVE); URINE LEUK ESTERASE 2+ (NEGATIVE); URINE NITRITE POSITIVE (NEGATIVE); URINE PROTEIN NEGATIVE (NEGATIVE); URINE RBC 3 /hpf (0-4); URINE UROBILINOGEN 0.2 mg/dL (0.2-1.0); URINE WBC 49 /hpf (0-5)
--- NOTE | 2018-10-09 19:46 | HP ---
Admitting History and Physical - Primary Care Physician PCP: Stas Tamayo - Admission History of Present Illness: 67 y/o F w/PMH of MR, anoxic brain injury, aspiration pna, uti, CVA, COPD, HTN, HLD, epilepsy, PEG tube presents from [facility] for hypoxia. Per the nursing faculty at bedside, she had hypoxia this morning. Normally she is on bipap at night. Per the chart review, the patient was recently at [facility] on 07/30-08/08 for pseudomonoas UTI and PNA of which she was treated with zosyn and requiring medrol daily for suspected aspiration pneumonitis. Per Lawrence's notes, the patient had increased WOB with intercostal retractions that were not improving post suctioning and nebulizer treatment x2 (given brovana and atrovent at 8:30 am) and duoneb at 10:30 am. Was at 92-93% on bipap. The patient is unable to provide a history given her mental status and non verbal state. Normal bipap setting at IPAP 15, EPAP 5, O2 at 40% with rate 14. 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, Other Cardiovascular: Yes: HTN, Hyperlipdemia Infectious Disease: Yes: Other (recent pneumonia, recent pseudomonas UTI) - Smoking History Smoking history: Unknown if ever smoked Have you smoked in the past 12 months: No - Alcohol/Substance Use Hx Alcohol Use: No - Social History ADL: Support Services History of Recent Travel: No Home Medications - Allergies Allergies/Adverse Reactions: Allergies Allergy/AdvReac Type Severity Reaction Status Date / Time No Known Allergies Allergy Verified 06/26/18 11:56 - Home Medications Home Medications: Ambulatory Orders Albuterol 2.5/Ipratropium 0.5 [Duoneb -] 1 neb IH QID 10/09/18 Alendronate Sodium 70 mg GT DAILY 10/09/18 Amlodipine Besylate [Norvasc -] 2.5 mg PO DAILY 10/09/18 Arformoterol Tartrate [Brovana] 15 mcg IH BID 10/09/18 Ascorbic Acid 500 mg GT BID 10/09/18 Bacitracin - [Bacitracin Topical Ointment -] 1 applic TP TID 10/09/18 Budesonide 1 mg IH BID 10/09/18 Calcium (Oyster Shell) [Os-Jamar 500Mg -] 500 mg NR BID 10/09/18 Clotrimazole/Betamethasone Dip [Clotrimazole-Betamethasone Crm] 45 gm TP BID 09/20 Lactobacillus Acidophilus [Acidophilus] 1 each PO BID 10/09/18 Lactulose 10 gm GT DAILY 10/09/18 Metoclopramide HCl 5 mg PO DAILY 10/09/18 Metoprolol Tartrate 25 mg PO BID 10/09/18 Multivitamin/Iron/Folic Acid [Centrum Adults Tablet] 1 each GT DAILY 10/09/18 Olopatadine HCl 2.5 ml OP DAILY 10/09/18 Protein Supplement [Promod] 30 ml GT DAILY 10/09/18 Silver Sulfadiazine 1% Top Cr [Silvadene -] 1 applic TP DAILY 10/09/18 Simvastatin 40 mg GT DAILY 10/09/18 Zinc Oxide 20% Topical Oint 60 gm TD ASDIR 10/09/18 Physical Examination Vital Signs: Vital Signs Temperature Pulse Rate 103 H 10/09/18 11:59 Respiratory Rate 22 H 10/09/18 11:59 Blood Pressure 153/84 10/09/18 11:59 O2 Sat by Pulse Oximetry (%) 97 10/09/18 18:39 Constitutional: Yes: Calm HENT: Yes: Atraumatic Neck: Yes: Other (trach collar) Cardiovascular: Yes: Regular Rate and Rhythm Respiratory: Yes: Rales, Rhonchi Gastrointestinal: Yes: Normal Bowel Sounds, Other (peg in place) Extremities: Yes: Other (contracted) Edema: No Neurological: Yes: Other (awake) Labs: CBC, BMP 10/09/18 12:10 10/09/18 12:10 Imaging - Results X-ray: Report Reviewed Problem List - Problems (1) COPD exacerbation Assessment/Plan: on bipap duo nebs prn Code(s): J44.1 - CHRONIC OBSTRUCTIVE PULMONARY DISEASE W (ACUTE) EXACERBATION (2) Anoxic brain injury Code(s): G93.1 - ANOXIC BRAIN DAMAGE, NOT ELSEWHERE CLASSIFIED (3) Aspiration pneumonia Assessment/Plan: iv abx id on board Code(s): J69.0 - PNEUMONITIS DUE TO INHALATION OF FOOD AND VOMIT (4) Cerebral palsy Code(s): G80.9 - CEREBRAL PALSY, UNSPECIFIED (5) Feeding by G-tube Assessment/Plan: on hold Code(s): Z93.1 - GASTROSTOMY STATUS (6) Functional quadriplegia Code(s): R53.2 - FUNCTIONAL QUADRIPLEGIA (7) HLD (hyperlipidemia) Code(s): E78.5 - HYPERLIPIDEMIA, UNSPECIFIED (8) HTN (hypertension) Assessment/Plan: on meds monitor Code(s): I10 - ESSENTIAL (PRIMARY) HYPERTENSION (9) Hypoxia Code(s): R09.02 - HYPOXEMIA (10) Seizure disorder Assessment/Plan: on meds stable Code(s): G40.909 - EPILEPSY, UNSP, NOT INTRACTABLE, WITHOUT STATUS EPILEPTICUS Assessment/Plan Laboratory Tests 10/09/18 10/09/18 10/09/18 12:10 12:10 12:10 WBC 11.2 H RBC 4.58 Hgb 13.8 Hct 41.9 MCV 91.6 MCH 30.2 MCHC 32.9 RDW 14.0 Plt Count 308 D MPV 8.3 D Absolute Neuts (auto) 9.5 H Neutrophils % 84.8 H Lymphocytes % 7.6 L D Monocytes % 6.9 Eosinophils % 0.6 Basophils % 0.1 Nucleated RBC % 0 PT with INR INR VBG pH POC VBG pCO2 POC VBG pO2 VBG HCO3 VBG O2 Sat (Eugenio) VBG Base Excess Sodium 138 Potassium 4.2 Chloride 100 Carbon Dioxide 31 Anion Gap 7 L BUN 15.2 Creatinine 0.3 L Est GFR (CKD-EPI)AfAm 139.26 Est GFR (CKD-EPI)NonAf 120.15 Random Glucose 122 H Lactic Acid Calcium 8.6 Magnesium 2.6 H Total Bilirubin < 0.1 L AST 51 H ALT 48 Alkaline Phosphatase 533 H Creatine Kinase 56 Troponin I < 0.02 B-Natriuretic Peptide 91.4 Total Protein 7.2 Albumin 2.5 L Urine Color Urine Appearance Urine pH Ur Specific [place] Urine Protein Urine Glucose (UA) Urine Ketones Urine Blood Urine Nitrite Urine Bilirubin Urine Urobilinogen Ur Leukocyte Esterase Urine WBC (Auto) Urine RBC (Auto) Urine Casts (Auto) U Epithel Cells (Auto) Urine Bacteria (Auto) Blood Type Antibody Screen 10/09/18 10/09/18 10/09/18 12:10 12:10 12:10 WBC RBC Hgb Hct MCV MCH MCHC RDW Plt Count MPV Absolute Neuts (auto) Neutrophils % Lymphocytes % Monocytes % Eosinophils % Basophils % Nucleated RBC % PT with INR 12.20 INR 1.03 VBG pH POC VBG pCO2 POC VBG pO2 VBG HCO3 VBG O2 Sat (Eugenio) VBG Base Excess Sodium Potassium Chloride Carbon Dioxide Anion Gap BUN Creatinine Est GFR (CKD-EPI)AfAm Est GFR (CKD-EPI)NonAf Random Glucose Lactic Acid 2.0 Calcium Magnesium Total Bilirubin AST ALT Alkaline Phosphatase Creatine Kinase Troponin I B-Natriuretic Peptide Total Protein Albumin Urine Color Urine Appearance Urine pH Ur Specific [place] Urine Protein Urine Glucose (UA) Urine Ketones Urine Blood Urine Nitrite Urine Bilirubin Urine Urobilinogen Ur Leukocyte Esterase Urine WBC (Auto) Urine RBC (Auto) Urine Casts (Auto) U Epithel Cells (Auto) Urine Bacteria (Auto) Blood Type O POSITIVE Antibody Screen Negative 10/09/18 10/09/18 10/09/18 13:00 16:20 18:00 WBC RBC Hgb Hct MCV MCH MCHC RDW Plt Count MPV Absolute Neuts (auto) Neutrophils % Lymphocytes % Monocytes % Eosinophils % Basophils % Nucleated RBC % PT with INR INR VBG pH 7.23 L POC VBG pCO2 76.8 H* POC VBG pO2 110 H VBG HCO3 31.1 H VBG O2 Sat (Eugenio) 96.5 H VBG Base Excess 1.3 Sodium Potassium Chloride Carbon Dioxide Anion Gap BUN Creatinine Est GFR (CKD-EPI)AfAm Est GFR (CKD-EPI)NonAf Random Glucose Lactic Acid Calcium Magnesium Total Bilirubin AST ALT Alkaline Phosphatase Creatine Kinase Troponin I B-Natriuretic Peptide Total Protein Albumin Urine Color Yellow Urine Appearance Clear Urine pH 8.0 Ur Specific Conception 1.012 Urine Protein Negative Urine Glucose (UA) Negative Urine Ketones Negative Urine Blood Negative Urine Nitrite Positive H Urine Bilirubin Negative Urine Urobilinogen 0.2 Ur Leukocyte Esterase 2+ H Urine WBC (Auto) 49 Urine RBC (Auto) 3 Urine Casts (Auto) 6 U Epithel Cells (Auto) 0.6 Urine Bacteria (Auto) 150.7 Blood Type O POSITIVE Antibody Screen Active Medications Generic Name Dose Route Start Last Admin Trade Name Freq PRN Reason Stop Dose Admin Amlodipine Besylate 2.5 mg 10/10/18 10:00 10/10/18 09:59 Norvasc - PO 2.5 mg DAILY FRANCIE Administration Arformoterol Tartrate 1 amp 10/09/18 20:00 10/10/18 08:50 Brovana (Restricted To Pulmonology/Resp) - NEB Not Given RBID FRANCIE Ascorbic Acid 500 mg 10/09/18 22:00 10/10/18 09:59 Vitamin C - GT 500 mg BID FRANCIE Administration Atorvastatin Calcium 20 mg 10/10/18 22:00 Lipitor - GT HS FRANCIE Bacitracin 1 applic 10/09/18 22:00 10/10/18 14:13 Bacitracin - TP 1 applic TID FRANCIE Administration Budesonide 1 amp 10/09/18 20:00 10/10/18 09:11 Pulmicort 0.5 Mg Nebulizer - NEB 1 amp RBID FRANCIE Administration Calcium Carbonate 500 mg 10/09/18 22:00 10/10/18 09:58 Calcium Carb Oral Suspension - GT 500 mg BID FRANCIE Administration Heparin Sodium (Porcine) 5,000 unit 10/09/18 22:00 10/10/18 09:59 Heparin - SQ 5,000 unit BID FRANCIE Administration Sodium Chloride 1,000 mls @ 75 mls/hr 10/09/18 20:00 10/09/18 22:00 Normal Saline - IV 75 mls/hr ASDIR FRANCIE Administration Piperacillin Sod/Tazobactam 50 mls @ 100 mls/hr 10/10/18 11:30 10/10/18 17:41 Sod 3.375 gm/ Dextrose IVPB 100 mls/hr Q8H-IV FRANCIE Administration Protocol Lactulose 10 gm 10/10/18 10:00 10/10/18 09:58 Cephulac (Oral Use) GT 10 gm DAILY FRANCIE Administration Metoclopramide HCl 5 mg 10/10/18 10:00 10/10/18 09:59 Reglan Oral Solution - GT 5 mg DAILY FRANCIE Administration Non-Formulary Medication 2.5 ml 10/10/18 10:00 Olopatadine Hcl [Olopatadine Hcl] OP DAILY FRANCIE
[2018-10-09] MEDS: BACITRACIN 15 GM TUBE TOPICAL OINTMENT TP SCH (22:00)
[2018-10-09] MEDS: BUDESONIDE 0.5 MG/2 ML INH SUSP VIAL NEB SCH (22:00)
[2018-10-09] MEDS: SODIUM CHLORIDE 1,000 ML IV SCH (22:00)
[2018-10-09] MEDS: ARFORMOTEROL TARTRATE 15 MCG/2 ML VIAL NEB SCH (22:00)
[2018-10-09] MEDS ORDERED: BACITRACIN 0.9 GM PACKET ONE (22:33)
[2018-10-09] MEDS: CALCIUM CARBONATE SUSPENSION - 500 MG/5 ML ML GT SCH (22:33)
[2018-10-09] MEDS: ASCORBIC ACID 500 MG TABLET (FP) GT SCH (22:34)
[2018-10-10] MEDS ORDERED: HEPARIN NA (PORCINE) 5,000 UNITS/ML 1ML VIAL ONE (00:19)
[2018-10-10] MEDS: HEPARIN NA (PORCINE) 5,000 UNITS/ML 1ML VIAL SQ SCH ×3 (00:43→21:35)
[2018-10-10] MEDS ORDERED: amLODIPine BESYLATE 5 MG TABLET (FP) PO ONE (02:09)
[2018-10-10] MEDS ORDERED: amLODIPine BESYLATE 5 MG TABLET (FP) ONE (02:16)
[2018-10-10 06:06] LABS: BASO % 0.4 % (0-2.0); EOS % 1.4 % (0-4.5); HEMATOCRIT 41.5 % (32.4-45.2); HEMOGLOBIN 14.1 GM/dL (10.7-15.3); LYMPH % 9.8 % (8-40); MCH 30.4 pg (25.7-33.7); MEAN CELL VOLUME 89.3 fl (80-96); MEAN PLT VOLUME 7.1 fl (7.5-11.1); MONO % 12.3 % (3.8-10.2); NEUT % 76.1 % (42.8-82.8); PLATELET COUNT 358 K/MM3 (134-434); RBC 4.64 M/mm3 (3.60-5.2); RDW 13.7 % (11.6-15.6); WHITE BLOOD COUNT 13.4 K/mm3 (4.0-10.0)
[2018-10-10] MEDS: BACITRACIN 15 GM TUBE TOPICAL OINTMENT TP SCH ×3 (06:10→21:34)
[2018-10-10 06:32] LABS: ALBUMIN 2.7 g/dl (3.4-5.0); BILIRUBIN,TOTAL 0.2 mg/dL (0.2-1); BLOOD UREA NITROGEN 12.5 mg/dL (7-18); CALCIUM 9.3 mg/dL (8.5-10.1); CREATININE 0.3 mg/dL (0.55-1.3); POTASSIUM 3.4 mmol/L (3.5-5.1); TOT PROT 7.5 g/dl (6.4-8.2)
[2018-10-10] MEDS: ARFORMOTEROL TARTRATE 15 MCG/2 ML VIAL NEB SCH ×2 (08:50→20:20)
[2018-10-10] MEDS: BUDESONIDE 0.5 MG/2 ML INH SUSP VIAL NEB SCH (09:11)
[2018-10-10] MEDS: CALCIUM CARBONATE SUSPENSION - 500 MG/5 ML ML GT SCH ×2 (09:58→23:16)
[2018-10-10] MEDS: ASCORBIC ACID 500 MG TABLET (FP) GT SCH ×2 (09:59→21:35)
[2018-10-10] MEDS ORDERED: amLODIPine BESYLATE 2.5 MG TABLET (FP) PO SCH (10:00)
[2018-10-10] MEDS ORDERED: METOCLOPRAMIDE HCL 5 MG/5 ML UNIT DOSE CUP GT SCH (10:00)
[2018-10-10] MEDS ORDERED: LACTULOSE 20 GM/30 ML UDC (FOR ORAL USE ONLY) GT SCH (10:00)
[2018-10-10] MEDS ORDERED: PATIENT'S OWN MEDICATION (NON-FORMULARY) (Alendronate Sodium [Alendronate Sodium] 70 MG) GT SCH (10:00)
[2018-10-10] MEDS ORDERED: OLOPATADINE HCL OP SCH (10:00)
--- NOTE | 2018-10-10 10:42 | CON.ID ---
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 Cardio/Vascular: Yes: HTN, Hyperlipdemia Infectious Disease: Yes: Other (recent pneumonia, recent pseudomonas UTI) - Alcohol/Substance Use Hx Alcohol Use: No - Smoking History Smoking history: Unknown if ever smoked Have you smoked in the past 12 months: No - Social History Usual Living Arrangement: Fdc ADL: Support Services History of Recent Travel: No Home Medications - Allergies Allergies/Adverse Reactions: Allergies Allergy/AdvReac Type Severity Reaction Status Date / Time No Known Allergies Allergy Verified 06/26/18 11:56 - Home Medications Home Medications: Ambulatory Orders Albuterol 2.5/Ipratropium 0.5 [Duoneb -] 1 neb IH QID 10/09/18 Alendronate Sodium 70 mg GT DAILY 10/09/18 Amlodipine Besylate [Norvasc -] 2.5 mg PO DAILY 10/09/18 Arformoterol Tartrate [Brovana] 15 mcg IH BID 10/09/18 Ascorbic Acid 500 mg GT BID 10/09/18 Bacitracin - [Bacitracin Topical Ointment -] 1 applic TP TID 10/09/18 Budesonide 1 mg IH BID 10/09/18 Calcium (Oyster Shell) [Os-Jamar 500Mg -] 500 mg NR BID 10/09/18 Clotrimazole/Betamethasone Dip [Clotrimazole-Betamethasone Crm] 45 gm TP BID 09/20 Lactobacillus Acidophilus [Acidophilus] 1 each PO BID 10/09/18 Lactulose 10 gm GT DAILY 10/09/18 Metoclopramide HCl 5 mg PO DAILY 10/09/18 Metoprolol Tartrate 25 mg PO BID 10/09/18 Multivitamin/Iron/Folic Acid [Centrum Adults Tablet] 1 each GT DAILY 10/09/18 Olopatadine HCl 2.5 ml OP DAILY 10/09/18 Protein Supplement [Promod] 30 ml GT DAILY 10/09/18 Silver Sulfadiazine 1% Top Cr [Silvadene -] 1 applic TP DAILY 10/09/18 Simvastatin 40 mg GT DAILY 10/09/18 Zinc Oxide 20% Topical Oint 60 gm TD ASDIR 10/09/18 Physical Exam Vital Signs: Vital Signs Temperature Pulse Rate 118 H 10/10/18 08:30 Respiratory Rate 15 10/10/18 08:30 Blood Pressure 158/104 H 10/10/18 08:30 O2 Sat by Pulse Oximetry (%) 95 10/10/18 09:00 Labs: CBC, BMP 10/10/18 05:35 10/10/18 05:35
--- NOTE | 2018-10-10 11:47 | PN ---
Progress Note (short form) - Note Progress Note: Patient seen in the ER. Awake on NIPPV support. No acute distress. Intake & Output 10/07/18 10/08/18 10/09/18 10/10/18 23:59 23:59 23:59 23:59 Weight 100 lb Last Vital Signs Temp Pulse Resp BP Pulse Ox 118 H 15 158/104 H 95 10/10/18 08:30 10/10/18 08:30 10/10/18 08:30 10/10/18 09:00 Active Medications Amlodipine Besylate (Norvasc -) 2.5 mg PO DAILY [facility] Last Admin: 10/10/18 09:59 Dose: 2.5 mg Arformoterol Tartrate (Brovana (Restricted To Pulmonology/Resp) -) 1 amp NEB RBID [facility] Last Admin: 10/10/18 08:50 Dose: Not Given Ascorbic Acid (Vitamin C -) 500 mg GT BID [facility] Last Admin: 10/10/18 09:59 Dose: 500 mg Atorvastatin Calcium (Lipitor -) 20 mg GT [facility] Bacitracin (Bacitracin -) 1 applic TP TID [facility] Last Admin: 10/10/18 06:10 Dose: 1 applic Budesonide (Pulmicort 0.5 Mg Nebulizer -) 1 amp NEB RBID [facility] Last Admin: 10/10/18 09:11 Dose: 1 amp Calcium Carbonate (Calcium Carb Oral Suspension -) 500 mg GT BID [facility] Last Admin: 10/10/18 09:58 Dose: 500 mg Heparin Sodium (Porcine) (Heparin -) 5,000 unit SQ BID [facility] Last Admin: 10/10/18 09:59 Dose: 5,000 unit Sodium Chloride (Normal Saline -) 1,000 mls @ 75 mls/hr IV ASDIR FRANCIE Last Admin: 10/09/18 22:00 Dose: 75 mls/hr Piperacillin Sod/Tazobactam (Sod 3.375 gm/ Dextrose) 50 mls @ 100 mls/hr IVPB Q8H-IV FRANCIE; Protocol Lactulose (Cephulac (Oral Use)) 10 gm GT DAILY [facility] Last Admin: 10/10/18 09:58 Dose: 10 gm Metoclopramide HCl (Reglan Oral Solution -) 5 mg GT DAILY [facility] Last Admin: 10/10/18 09:59 Dose: 5 mg Non-Formulary Medication (Olopatadine Hcl [Olopatadine Hcl]) 2.5 ml OP DAILY FRANCIE General: Awake on NIPPV support CV: S1, S2, RRR, Tachycardic Respiratory: scattered rhonchi, no wheeze/crackles Abdomen: distended, (+) bowel sounds; peg tube site C/D/I Extremity: 2+ DP pulses B/L, contracted UE/LE Laboratory Results - last 24 hr 10/09/18 10/09/18 10/09/18 12:10 12:10 12:10 WBC 11.2 H RBC 4.58 Hgb 13.8 Hct 41.9 MCV 91.6 MCH 30.2 MCHC 32.9 RDW 14.0 Plt Count 308 D MPV 8.3 D Absolute Neuts (auto) 9.5 H Neutrophils % 84.8 H Lymphocytes % 7.6 L D Monocytes % 6.9 Eosinophils % 0.6 Basophils % 0.1 Nucleated RBC % 0 PT with INR INR VBG pH POC VBG pCO2 POC VBG pO2 VBG HCO3 VBG O2 Sat (Eugenio) VBG Base Excess Sodium 138 Potassium 4.2 Chloride 100 Carbon Dioxide 31 Anion Gap 7 L BUN 15.2 Creatinine 0.3 L Est GFR (CKD-EPI)AfAm 139.26 Est GFR (CKD-EPI)NonAf 120.15 Random Glucose 122 H Lactic Acid Calcium 8.6 Magnesium 2.6 H Total Bilirubin < 0.1 L AST 51 H ALT 48 Alkaline Phosphatase 533 H Creatine Kinase 56 Troponin I < 0.02 B-Natriuretic Peptide 91.4 Total Protein 7.2 Albumin 2.5 L Urine Color Urine Appearance Urine pH Ur Specific [place] Urine Protein Urine Glucose (UA) Urine Ketones Urine Blood Urine Nitrite Urine Bilirubin Urine Urobilinogen Ur Leukocyte Esterase Urine WBC (Auto) Urine RBC (Auto) Urine Casts (Auto) U Epithel Cells (Auto) Urine Bacteria (Auto) Blood Type Antibody Screen 10/09/18 10/09/18 10/09/18 12:10 12:10 12:10 WBC RBC Hgb Hct MCV MCH MCHC RDW Plt Count MPV Absolute Neuts (auto) Neutrophils % Lymphocytes % Monocytes % Eosinophils % Basophils % Nucleated RBC % PT with INR 12.20 INR 1.03 VBG pH POC VBG pCO2 POC VBG pO2 VBG HCO3 VBG O2 Sat (Eugenio) VBG Base Excess Sodium Potassium Chloride Carbon Dioxide Anion Gap BUN Creatinine Est GFR (CKD-EPI)AfAm Est GFR (CKD-EPI)NonAf Random Glucose Lactic Acid 2.0 Calcium Magnesium Total Bilirubin AST ALT Alkaline Phosphatase Creatine Kinase Troponin I B-Natriuretic Peptide Total Protein Albumin Urine Color Urine Appearance Urine pH Ur Specific [place] Urine Protein Urine Glucose (UA) Urine Ketones Urine Blood Urine Nitrite Urine Bilirubin Urine Urobilinogen Ur Leukocyte Esterase Urine WBC (Auto) Urine RBC (Auto) Urine Casts (Auto) U Epithel Cells (Auto) Urine Bacteria (Auto) Blood Type O POSITIVE Antibody Screen Negative 10/09/18 10/09/18 10/09/18 13:00 16:20 18:00 WBC RBC Hgb Hct MCV MCH MCHC RDW Plt Count MPV Absolute Neuts (auto) Neutrophils % Lymphocytes % Monocytes % Eosinophils % Basophils % Nucleated RBC % PT with INR INR VBG pH 7.23 L POC VBG pCO2 76.8 H* POC VBG pO2 110 H VBG HCO3 31.1 H VBG O2 Sat (Eugenio) 96.5 H VBG Base Excess 1.3 Sodium Potassium Chloride Carbon Dioxide Anion Gap BUN Creatinine Est GFR (CKD-EPI)AfAm Est GFR (CKD-EPI)NonAf Random Glucose Lactic Acid Calcium Magnesium Total Bilirubin AST ALT Alkaline Phosphatase Creatine Kinase Troponin I B-Natriuretic Peptide Total Protein Albumin Urine Color Yellow Urine Appearance Clear Urine pH 8.0 Ur Specific [place] 1.012 Urine Protein Negative Urine Glucose (UA) Negative Urine Ketones Negative Urine Blood Negative Urine Nitrite Positive H Urine Bilirubin Negative Urine Urobilinogen 0.2 Ur Leukocyte Esterase 2+ H Urine WBC (Auto) 49 Urine RBC (Auto) 3 Urine Casts (Auto) 6 U Epithel Cells (Auto) 0.6 Urine Bacteria (Auto) 150.7 Blood Type O POSITIVE Antibody Screen 10/10/18 10/10/18 05:35 05:35 WBC 13.4 H RBC 4.64 Hgb 14.1 Hct 41.5 MCV 89.3 MCH 30.4 MCHC 34.0 RDW 13.7 Plt Count 358 MPV 7.1 L D Absolute Neuts (auto) 10.2 H Neutrophils % 76.1 Lymphocytes % 9.8 D Monocytes % 12.3 H Eosinophils % 1.4 D Basophils % 0.4 D Nucleated RBC % 0 PT with INR INR VBG pH POC VBG pCO2 POC VBG pO2 VBG HCO3 VBG O2 Sat (Eugenio) VBG Base Excess Sodium 139 Potassium 3.4 L Chloride 99 Carbon Dioxide 32 Anion Gap 7 L BUN 12.5 Creatinine 0.3 L Est GFR (CKD-EPI)AfAm 139.26 Est GFR (CKD-EPI)NonAf 120.15 Random Glucose 91 Lactic Acid Calcium 9.3 Magnesium Total Bilirubin 0.2 AST 35 ALT 44 Alkaline Phosphatase 516 H Creatine Kinase Troponin I B-Natriuretic Peptide Total Protein 7.5 Albumin 2.7 L Urine Color Urine Appearance Urine pH Ur Specific [place] Urine Protein Urine Glucose (UA) Urine Ketones Urine Blood Urine Nitrite Urine Bilirubin Urine Urobilinogen Ur Leukocyte Esterase Urine WBC (Auto) Urine RBC (Auto) Urine Casts (Auto) U Epithel Cells (Auto) Urine Bacteria (Auto) Blood Type Antibody Screen Problems (1) COPD exacerbation Code(s): J44.1 - CHRONIC OBSTRUCTIVE PULMONARY DISEASE W (ACUTE) EXACERBATION (2) Anoxic brain injury Code(s): G93.1 - ANOXIC BRAIN DAMAGE, NOT ELSEWHERE CLASSIFIED (3) Aspiration pneumonia Code(s): J69.0 - PNEUMONITIS DUE TO INHALATION OF FOOD AND VOMIT (4) Cerebral palsy Code(s): G80.9 - CEREBRAL PALSY, UNSPECIFIED (5) Feeding by G-tube Code(s): Z93.1 - GASTROSTOMY STATUS (6) Functional quadriplegia Code(s): R53.2 - FUNCTIONAL QUADRIPLEGIA (7) HLD (hyperlipidemia) Code(s): E78.5 - HYPERLIPIDEMIA, UNSPECIFIED (8) HTN (hypertension) Code(s): I10 - ESSENTIAL (PRIMARY) HYPERTENSION (9) Hypoxia Code(s): R09.02 - HYPOXEMIA (10) Seizure disorder Code(s): G40.909 - EPILEPSY, UNSP, NOT INTRACTABLE, WITHOUT STATUS EPILEPTICUS PLAN: Noted empiric ABX per ID Trial of VM O2 Aspiration precautions BD TX Monitor off systemic steroids VTE prophylaxis NIPPV support for increased WOB Dr Bella
[2018-10-10] MEDS: PIPERACILLIN/TAZOB 3.375 GM 3.375 GM in DEXTROSE 5%-WATER - 50 ML IVPB SCH ×2 (12:44→17:41)
--- NOTE | 2018-10-10 13:57 | EKG ---
Test Reason : Blood Pressure : / mmHG Vent. Rate : 099 BPM Atrial Rate : 099 BPM P-R Int : 126 ms QRS Dur : 066 ms QT Int : 346 ms P-R-T Axes : 060 068 032 degrees QTc Int : 444 ms NORMAL SINUS RHYTHM NORMAL ECG WHEN COMPARED WITH ECG OF 30-JUL-2018 12:03, T WAVE INVERSION NO LONGER EVIDENT IN ANTERIOR LEADS Confirmed by PRAVEEN LEY, BRINA ([id number]) on 10/10/2018 1:56:42 PM Referred By: Confirmed By:BRINA MORTON MD
--- NOTE | 2018-10-10 16:37 | PN ---
Progress Note, Physician - Current Medication List Current Medications: Active Medications Amlodipine Besylate (Norvasc -) 2.5 mg PO DAILY [facility] Last Admin: 10/10/18 09:59 Dose: 2.5 mg Arformoterol Tartrate (Brovana (Restricted To Pulmonology/Resp) -) 1 amp NEB RBID [facility] Last Admin: 10/10/18 08:50 Dose: Not Given Ascorbic Acid (Vitamin C -) 500 mg GT BID [facility] Last Admin: 10/10/18 09:59 Dose: 500 mg Atorvastatin Calcium (Lipitor -) 20 mg GT HS [facility] Bacitracin (Bacitracin -) 1 applic TP TID [facility] Last Admin: 10/10/18 14:13 Dose: 1 applic Budesonide (Pulmicort 0.5 Mg Nebulizer -) 1 amp NEB RBID [facility] Last Admin: 10/10/18 09:11 Dose: 1 amp Calcium Carbonate (Calcium Carb Oral Suspension -) 500 mg GT BID [facility] Last Admin: 10/10/18 09:58 Dose: 500 mg Heparin Sodium (Porcine) (Heparin -) 5,000 unit SQ BID [facility] Last Admin: 10/10/18 09:59 Dose: 5,000 unit Sodium Chloride (Normal Saline -) 1,000 mls @ 75 mls/hr IV ASDIR [facility] Last Admin: 10/09/18 22:00 Dose: 75 mls/hr Piperacillin Sod/Tazobactam (Sod 3.375 gm/ Dextrose) 50 mls @ 100 mls/hr IVPB Q8H-IV [facility]; Protocol Last Admin: 10/10/18 12:44 Dose: 100 mls/hr Lactulose (Cephulac (Oral Use)) 10 gm GT DAILY [facility] Last Admin: 10/10/18 09:58 Dose: 10 gm Metoclopramide HCl (Reglan Oral Solution -) 5 mg GT DAILY [facility] Last Admin: 10/10/18 09:59 Dose: 5 mg Non-Formulary Medication (Olopatadine Hcl [Olopatadine Hcl]) 2.5 ml OP DAILY [facility] - Objective Vital Signs: Vital Signs Temperature 98.7 F 10/10/18 10:00 Pulse Rate 118 H 10/10/18 10:00 Respiratory Rate 14 10/10/18 10:00 Blood Pressure 158/97 10/10/18 10:00 O2 Sat by Pulse Oximetry (%) 95 10/10/18 13:46 Constitutional: Yes: Calm HENT: Yes: Atraumatic Neck: Yes: Other (trach collar) Cardiovascular: Yes: Regular Rate and Rhythm Respiratory: Yes: Rales, Rhonchi Gastrointestinal: Yes: Normal Bowel Sounds, Other (peg in place) Extremities: Yes: Other (contracted) Labs: CBC, BMP 10/10/18 05:35 10/10/18 05:35 INR, PTT INR 1.03 (0.83-1.09) 10/09/18 12:10 Problem List - Problems (1) COPD exacerbation Assessment/Plan: on bipap duo nebs prn Code(s): J44.1 - CHRONIC OBSTRUCTIVE PULMONARY DISEASE W (ACUTE) EXACERBATION (2) Anoxic brain injury Code(s): G93.1 - ANOXIC BRAIN DAMAGE, NOT ELSEWHERE CLASSIFIED (3) Aspiration pneumonia Assessment/Plan: iv abx id on board Code(s): J69.0 - PNEUMONITIS DUE TO INHALATION OF FOOD AND VOMIT (4) Cerebral palsy Code(s): G80.9 - CEREBRAL PALSY, UNSPECIFIED (5) Feeding by G-tube Assessment/Plan: on hold Code(s): Z93.1 - GASTROSTOMY STATUS (6) Functional quadriplegia Code(s): R53.2 - FUNCTIONAL QUADRIPLEGIA (7) HLD (hyperlipidemia) Code(s): E78.5 - HYPERLIPIDEMIA, UNSPECIFIED (8) HTN (hypertension) Assessment/Plan: on meds monitor Code(s): I10 - ESSENTIAL (PRIMARY) HYPERTENSION (9) Hypoxia Code(s): R09.02 - HYPOXEMIA (10) Seizure disorder Assessment/Plan: on meds stable Code(s): G40.909 - EPILEPSY, UNSP, NOT INTRACTABLE, WITHOUT STATUS EPILEPTICUS
[2018-10-10] MEDS: amLODIPine BESYLATE 5 MG TABLET (FP) PO SCH (19:57)
[2018-10-10] MEDS: SODIUM CHLORIDE 1,000 ML IV SCH (20:13)
[2018-10-10] MEDS ORDERED: SODIUM CHLORIDE 1,000 ML IV SCH (20:30)
[2018-10-10] MEDS ORDERED: ATORVASTATIN CA 20 MG TABLET (FP) GT SCH (22:00)
[2018-10-11] MEDS ORDERED: DEXTROSE 5%-WATER - 50 ML IVPB ONE ×4 (01:00→17:13)
[2018-10-11] MEDS ORDERED: PIPERACILLIN/TAZOBACTAM 3.375 GM VIAL IVPB ONE ×4 (01:00→17:12)
[2018-10-11] MEDS: PIPERACILLIN/TAZOB 3.375 GM 3.375 GM in DEXTROSE 5%-WATER - 50 ML IVPB SCH ×3 (01:16→17:53)
[2018-10-11] MEDS: BACITRACIN 15 GM TUBE TOPICAL OINTMENT TP SCH ×3 (06:13→23:23)
[2018-10-11] MEDS ORDERED: BUDESONIDE 0.5 MG/2 ML INH SUSP VIAL NEB SCH (07:23)
[2018-10-11] MEDS: ARFORMOTEROL TARTRATE 15 MCG/2 ML VIAL NEB SCH ×2 (07:30→20:37)
[2018-10-11] MEDS: BUDESONIDE 0.5 MG/2 ML INH SUSP VIAL NEB SCH ×2 (07:30→20:40)
--- NOTE | 2018-10-11 07:39 | CON.GI ---
Consult Consult Specialty:: GI Referred by:: Dr Stas Tamayo Reason for Consultation:: Leaking G tube - History of Present Illness History of Present Illness: Patient is a 67 y/o female with past medical history of MR, anoxic brain injury , aspiration PNA, UTI, CVA, COPD, HTN, HLD, epilepsy, PEG tube. I was consulted to see patient in regards to leaking G tube. Patient is non-verbal and unable to provide history. RN report using G tube for medication use and no leaking was noted and no resistance when flushing. On examination no erythema or discharge noted at Gtube site - History Source History Provided By: Medical Record Limitations to Obtaining History: Clinical Condition - Past Medical History CARD HAND: Yes: Seizure, Other Cardio/Vascular: Yes: HTN, Hyperlipdemia Infectious Disease: Yes: Other (recent pneumonia, recent pseudomonas UTI) - Alcohol/Substance Use Hx Alcohol Use: No - Smoking History Smoking history: Unknown if ever smoked Have you smoked in the past 12 months: No - Social History Usual Living Arrangement: Residential ADL: Support Services History of Recent Travel: No Home Medications - Allergies Allergies/Adverse Reactions: Allergies Allergy/AdvReac Type Severity Reaction Status Date / Time No Known Allergies Allergy Verified 06/26/18 11:56 - Home Medications Home Medications: Ambulatory Orders Albuterol 2.5/Ipratropium 0.5 [Duoneb -] 1 neb IH QID 10/09/18 Alendronate Sodium 70 mg GT DAILY 10/09/18 Amlodipine Besylate [Norvasc -] 2.5 mg PO DAILY 10/09/18 Arformoterol Tartrate [Brovana] 15 mcg IH BID 10/09/18 Ascorbic Acid 500 mg GT BID 10/09/18 Bacitracin - [Bacitracin Topical Ointment -] 1 applic TP TID 10/09/18 Budesonide 1 mg IH BID 10/09/18 Calcium (Oyster Shell) [Os-Jamar 500Mg -] 500 mg NR BID 10/09/18 Clotrimazole/Betamethasone Dip [Clotrimazole-Betamethasone Crm] 45 gm TP BID 09/20 Lactobacillus Acidophilus [Acidophilus] 1 each PO BID 10/09/18 Lactulose 10 gm GT DAILY 10/09/18 Metoclopramide HCl 5 mg PO DAILY 10/09/18 Metoprolol Tartrate 25 mg PO BID 10/09/18 Multivitamin/Iron/Folic Acid [Centrum Adults Tablet] 1 each GT DAILY 10/09/18 Olopatadine HCl 2.5 ml OP DAILY 10/09/18 Protein Supplement [Promod] 30 ml GT DAILY 10/09/18 Silver Sulfadiazine 1% Top Cr [Silvadene -] 1 applic TP DAILY 10/09/18 Simvastatin 40 mg GT DAILY 10/09/18 Zinc Oxide 20% Topical Oint 60 gm TD [facility] 10/09/18 Review of Systems Unable to obtain ROS, reason: due to clinical condition Physical Exam-GI Vital Signs: Vital Signs Temperature 98.7 F 10/11/18 06:00 Pulse Rate 108 H 10/11/18 06:00 Respiratory Rate 18 10/11/18 06:00 Blood Pressure 160/96 10/11/18 06:00 O2 Sat by Pulse Oximetry (%) 99 10/10/18 22:00 Constitutional: Yes: No Distress, Calm Eyes: Yes: Conjunctiva Clear Cardiovascular: Yes: Tachycardia Respiratory: Yes: On BiPap, Rales Gastrointestinal Inspection: Yes: Distention, Other (PEG tube). No: WNL, Ascites, Hernia, Scars ...Auscultate: Yes: Hypoactive Bowel Sounds. No: Normoactive Bowel Sounds, Hyperactive Bowel Sounds, No Bowel Sounds, Other ...Palpate: Yes: Soft, Tenderness. No: Firm/Rigid, Guarding, Hepatomegaly, Mass , Pulsatile Mass, Splenomegaly, Tenderness, Epigastium, Tenderness, Rebound, Other ...Percussion: Yes: Tympanitic. No: Dullness, Fluid Wave, Other Extremities: Yes: Other (B/L upper and lower extremity contracted) Integumentary: Yes: Other Neurological: Yes: Alert, Pre-Existing Deficit Labs: CBC, BMP 10/10/18 05:35 10/10/18 05:35 INR, PTT INR 1.03 (0.83-1.09) 10/09/18 12:10 Active Medications Generic Name Dose Route Start Last Admin Trade Name Freq PRN Reason Stop Dose Admin Amlodipine Besylate 5 mg 10/10/18 19:30 10/10/18 19:57 Norvasc - PO 5 mg DAILY [facility] Administration Arformoterol Tartrate 1 amp 10/11/18 08:00 Brovana (Restricted To Pulmonology/Resp) - NEB RBID [facility] Ascorbic Acid 500 mg 10/11/18 10:00 Vitamin C - GT BID [facility] Atorvastatin Calcium 20 mg 10/11/18 22:00 Lipitor - GT HS [facility] Bacitracin 1 applic 10/11/18 14:00 Bacitracin - TP TID [facility] Budesonide 1 amp 10/11/18 07:24 Pulmicort 0.5 Mg Nebulizer - NEB RBID [facility] Calcium Carbonate 500 mg 10/11/18 10:00 Calcium Carb Oral Suspension - GT BID [facility] Heparin Sodium (Porcine) 5,000 unit 10/11/18 10:00 Heparin - SQ BID [facility] Sodium Chloride 1,000 mls @ 50 mls/hr 10/10/18 20:30 10/10/18 20:30 Normal Saline - IV 50 mls/hr ASDIR [facility] Administration Piperacillin Sod/Tazobactam 50 mls @ 100 mls/hr 10/11/18 10:00 Sod 3.375 gm/ Dextrose IVPB Q8H-IV [facility] Protocol Lactulose 10 gm 10/11/18 10:00 Cephulac (Oral Use) GT DAILY [facility] Metoclopramide HCl 5 mg 10/11/18 10:00 Reglan Oral Solution - GT DAILY [facility] Non-Formulary Medication 2.5 ml 10/11/18 10:00 Olopatadine Hcl [Olopatadine Hcl] OP DAILY [facility] Problem List - Problems (1) Malfunction of percutaneous endoscopic gastrostomy (PEG) tube Assessment/Plan: >No contraindication for G tube use Code(s): K94.23 - GASTROSTOMY MALFUNCTION
--- NOTE | 2018-10-11 09:53 | PN ---
Progress Note, Physician History of Present Illness: stable still needing bipap suspicion of g tube leakage seen by gi - Current Medication List Current Medications: Active Medications Amlodipine Besylate (Norvasc -) 5 mg PO DAILY [facility] Last Admin: 10/10/18 19:57 Dose: 5 mg Arformoterol Tartrate (Brovana (Restricted To Pulmonology/Resp) -) 1 amp NEB RBID [facility] Last Admin: 10/11/18 07:30 Dose: 1 amp Ascorbic Acid (Vitamin C -) 500 mg GT BID [facility] Atorvastatin Calcium (Lipitor -) 20 mg GT HS [facility] Bacitracin (Bacitracin -) 1 applic TP TID [facility] Budesonide (Pulmicort 0.5 Mg Nebulizer -) 1 amp NEB RBID [facility] Last Admin: 10/11/18 07:30 Dose: Not Given Calcium Carbonate (Calcium Carb Oral Suspension -) 500 mg GT BID [facility] Heparin Sodium (Porcine) (Heparin -) 5,000 unit SQ BID [facility] Sodium Chloride (Normal Saline -) 1,000 mls @ 50 mls/hr IV ASDIR [facility] Last Admin: 10/10/18 20:30 Dose: 50 mls/hr Piperacillin Sod/Tazobactam (Sod 3.375 gm/ Dextrose) 50 mls @ 100 mls/hr IVPB Q8H-IV [facility]; Protocol Lactulose (Cephulac (Oral Use)) 10 gm GT DAILY [facility] Metoclopramide HCl (Reglan Oral Solution -) 5 mg GT DAILY [facility] Non-Formulary Medication (Olopatadine Hcl [Olopatadine Hcl]) 2.5 ml OP DAILY [facility] - Objective Vital Signs: Vital Signs Temperature 98.7 F 10/11/18 06:00 Pulse Rate 108 H 10/11/18 06:00 Respiratory Rate 18 10/11/18 06:00 Blood Pressure 160/96 10/11/18 06:00 O2 Sat by Pulse Oximetry (%) 99 10/10/18 22:00 Constitutional: Yes: No Distress, Calm Cardiovascular: Yes: S1, S2 Respiratory: Yes: On BiPap, Poor Air Entry Gastrointestinal: Yes: Normal Bowel Sounds, Soft, Other (g tube in place) Musculoskeletal: Yes: WNL Extremities: Yes: Other Neurological: Yes: Other Labs: CBC, BMP 10/10/18 05:35 10/10/18 05:35 INR, PTT INR 1.03 (0.83-1.09) 10/09/18 12:10 Assessment/Plan Problem List - Problems (1) COPD exacerbation Code(s): J44.1 - CHRONIC OBSTRUCTIVE PULMONARY DISEASE W (ACUTE) EXACERBATION (2) Anoxic brain injury Code(s): G93.1 - ANOXIC BRAIN DAMAGE, NOT ELSEWHERE CLASSIFIED (3) Aspiration pneumonia Code(s): J69.0 - PNEUMONITIS DUE TO INHALATION OF FOOD AND VOMIT (4) Cerebral palsy Code(s): G80.9 - CEREBRAL PALSY, UNSPECIFIED (5) Feeding by G-tube Code(s): Z93.1 - GASTROSTOMY STATUS (6) Functional quadriplegia Code(s): R53.2 - FUNCTIONAL QUADRIPLEGIA (7) HLD (hyperlipidemia) Code(s): E78.5 - HYPERLIPIDEMIA, UNSPECIFIED (8) HTN (hypertension) Code(s): I10 - ESSENTIAL (PRIMARY) HYPERTENSION (9) Hypoxia Code(s): R09.02 - HYPOXEMIA (10) Seizure disorder Code(s): G40.909 - EPILEPSY, UNSP, NOT INTRACTABLE, WITHOUT STATUS EPILEPTICUS plan continue abx resp support nutrition rest as per the team
[2018-10-11] MEDS ORDERED: OLOPATADINE HCL OP SCH (10:00)
[2018-10-11] MEDS ORDERED: PT OWN MED DRAWER 7, Y5N ONE ×2 (10:27→20:39)
[2018-10-11] MEDS: CALCIUM CARBONATE SUSPENSION - 500 MG/5 ML ML GT SCH ×2 (10:29→23:23)
[2018-10-11] MEDS: ASCORBIC ACID 500 MG TABLET (FP) GT SCH ×2 (10:31→23:24)
[2018-10-11] MEDS: HEPARIN NA (PORCINE) 5,000 UNITS/ML 1ML VIAL SQ SCH ×2 (10:31→23:24)
[2018-10-11] MEDS: LACTULOSE 20 GM/30 ML UDC (FOR ORAL USE ONLY) GT SCH (10:31)
[2018-10-11] MEDS: amLODIPine BESYLATE 5 MG TABLET (FP) PO SCH (10:31)
--- NOTE | 2018-10-11 10:50 | CON.CARD ---
Consult Consult Specialty:: Cardiology Referred by:: Stsa Tamayo MD Reason for Consultation:: HTN, chol - History of Present Illness Chief Complaint: Acute on chronic respiratory failure History of Present Illness: 67 y/o F w/PMH of MR, anoxic brain injury, aspiration pna, uti, CVA, COPD, HTN, HLD, epilepsy, PEG tube presents from [facility] in [place] for hypoxia. Per the certified nursing attendant at bedside, she had hypoxia this morning. Normally she is on bipap at night. Per the chart review, the patient was recently at [facility] on 07/30-08/08 for pseudomonoas UTI and PNA of which she was treated with zosyn and requiring medrol daily for suspected aspiration pneumonitis. Per [place]'s notes, the patient had increased WOB with intercostal retractions that were not improving post suctioning and nebulizer treatment x2 (given brovana and atrovent at 8:30 am) and duoneb at 10:30 am. Was at 92-93% on bipap. The patient is unable to provide a history given her mental status and non verbal state, she is awake on normal bipap setting at IPAP 15, EPAP 5, O2 at 40% with rate 14. 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 Cardio/Vascular: Yes: HTN, Hyperlipdemia Infectious Disease: Yes: Other (recent pneumonia, recent pseudomonas UTI) - Alcohol/Substance Use Hx Alcohol Use: No - Smoking History Smoking history: Unknown if ever smoked Have you smoked in the past 12 months: No - Social History Usual Living Arrangement: Shelter ADL: Support Services History of Recent Travel: No Home Medications - Allergies Allergies/Adverse Reactions: Allergies Allergy/AdvReac Type Severity Reaction Status Date / Time No Known Allergies Allergy Verified 06/26/18 11:56 - Home Medications Home Medications: Ambulatory Orders Albuterol 2.5/Ipratropium 0.5 [Duoneb -] 1 neb IH QID 10/09/18 Alendronate Sodium 70 mg GT DAILY 10/09/18 Amlodipine Besylate [Norvasc -] 2.5 mg PO DAILY 10/09/18 Arformoterol Tartrate [Brovana] 15 mcg IH BID 10/09/18 Ascorbic Acid 500 mg GT BID 10/09/18 Bacitracin - [Bacitracin Topical Ointment -] 1 applic TP TID 10/09/18 Budesonide 1 mg IH BID 10/09/18 Calcium (Oyster Shell) [Os-Jamar 500Mg -] 500 mg NR BID 10/09/18 Clotrimazole/Betamethasone Dip [Clotrimazole-Betamethasone Crm] 45 gm TP BID 09/20 Lactobacillus Acidophilus [Acidophilus] 1 each PO BID 10/09/18 Lactulose 10 gm GT DAILY 10/09/18 Metoclopramide HCl 5 mg PO DAILY 10/09/18 Metoprolol Tartrate 25 mg PO BID 10/09/18 Multivitamin/Iron/Folic Acid [Centrum Adults Tablet] 1 each GT DAILY 10/09/18 Olopatadine HCl 2.5 ml OP DAILY 10/09/18 Protein Supplement [Promod] 30 ml GT DAILY 10/09/18 Silver Sulfadiazine 1% Top Cr [Silvadene -] 1 applic TP DAILY 10/09/18 Simvastatin 40 mg GT DAILY 10/09/18 Zinc Oxide 20% Topical Oint 60 gm TD ASDIR 10/09/18 Review of Systems Unable to obtain ROS, reason: Anoxic brain injury Vital Signs: Vital Signs Temperature 98.7 F 10/11/18 06:00 Pulse Rate 108 H 10/11/18 06:00 Respiratory Rate 18 10/11/18 06:00 Blood Pressure 160/96 10/11/18 06:00 O2 Sat by Pulse Oximetry (%) 99 10/10/18 22:00 Constitutional: Yes: No Distress, Calm, Thin Neck: Yes: Supple Respiratory: Yes: Regular, Diminished, On BiPap Gastrointestinal: Yes: Soft, Hypoactive Bowel Sounds Cardiovascular: Yes: Regular Rate and Rhythm JVD: No Carotid Bruit: No Heart Sounds: Yes: S1, S2 Extremities: Yes: Other (Contracted) Edema: No - Other Data Labs, Other Data: CBC, BMP 10/10/18 05:35 10/10/18 05:35 INR, PTT INR 1.03 (0.83-1.09) 10/09/18 12:10 NSR @ 99 Imaging - Results Chest X-ray: Report Reviewed (NAD) Assessment/Plan Problems (1) COPD exacerbation Code(s): J44.1 - CHRONIC OBSTRUCTIVE PULMONARY DISEASE W (ACUTE) EXACERBATION (2) Anoxic brain injury Code(s): G93.1 - ANOXIC BRAIN DAMAGE, NOT ELSEWHERE CLASSIFIED (3) Aspiration pneumonia Code(s): J69.0 - PNEUMONITIS DUE TO INHALATION OF FOOD AND VOMIT (4) Cerebral palsy Code(s): G80.9 - CEREBRAL PALSY, UNSPECIFIED (5) Feeding by G-tube Code(s): Z93.1 - GASTROSTOMY STATUS (6) Functional quadriplegia Code(s): R53.2 - FUNCTIONAL QUADRIPLEGIA (7) HLD (hyperlipidemia) Code(s): E78.5 - HYPERLIPIDEMIA, UNSPECIFIED (8) HTN (hypertension) Code(s): I10 - ESSENTIAL (PRIMARY) HYPERTENSION (9) Hypoxia Code(s): R09.02 - HYPOXEMIA (10) Seizure disorder Code(s): G40.909 - EPILEPSY, UNSP, NOT INTRACTABLE, WITHOUT STATUS EPILEPTICUS PLAN: Empiric ABX course per ID Wean FIO2 to keep SpO2 >90% Aspiration precautions BD TX Monitor off systemic steroids VTE prophylaxis, enteral feeds NIPPV support for increased WOB Continue Norvasc 2.5 qd, Lopressor 25 bid, Zocor 40 qhs Thank you for consultative opportunity
[2018-10-11] MEDS: METOCLOPRAMIDE HCL 5 MG/5 ML UNIT DOSE CUP GT SCH (12:37)
--- NOTE | 2018-10-11 15:32 | PN ---
Progress Note (short form) - Note Progress Note: PULMONARY Pt nonverbal, awake on BiPAP. Vital Signs Period Temp Pulse Resp BP Sys/Restrepo Pulse Ox Last 24 Hr 98 F-98.9 F 102-127 15-24 148-190/73-112 98-99 Gen: NAD on BiPAP Heart: RRR Lung: decreased breath sounds at the bases Abd: soft, nontender Ext: no edema, contracted CBC, BMP 10/10/18 05:35 10/10/18 05:35 Active Medications Amlodipine Besylate (Norvasc -) 5 mg PO DAILY [facility] Last Admin: 10/11/18 10:31 Dose: 5 mg Arformoterol Tartrate (Brovana (Restricted To Pulmonology/Resp) -) 1 amp NEB RBID [facility] Last Admin: 10/11/18 07:30 Dose: 1 amp Ascorbic Acid (Vitamin C -) 500 mg GT BID [facility] Last Admin: 10/11/18 10:31 Dose: 500 mg Atorvastatin Calcium (Lipitor -) 20 mg GT HS [facility] Bacitracin (Bacitracin -) 1 applic TP TID [facility] Last Admin: 10/11/18 14:32 Dose: 1 applic Budesonide (Pulmicort 0.5 Mg Nebulizer -) 1 amp NEB RBID [facility] Last Admin: 10/11/18 07:30 Dose: Not Given Calcium Carbonate (Calcium Carb Oral Suspension -) 500 mg GT BID [facility] Last Admin: 10/11/18 10:29 Dose: 500 mg Heparin Sodium (Porcine) (Heparin -) 5,000 unit SQ BID [facility] Last Admin: 10/11/18 10:31 Dose: 5,000 unit Sodium Chloride (Normal Saline -) 1,000 mls @ 50 mls/hr IV ASDIR [facility] Last Admin: 10/10/18 20:30 Dose: 50 mls/hr Piperacillin Sod/Tazobactam (Sod 3.375 gm/ Dextrose) 50 mls @ 100 mls/hr IVPB Q8H-IV [facility]; Protocol Last Admin: 10/11/18 10:27 Dose: 100 mls/hr Lactulose (Cephulac (Oral Use)) 10 gm GT DAILY [facility] Last Admin: 10/11/18 10:31 Dose: 10 gm Metoclopramide HCl (Reglan Oral Solution -) 5 mg GT DAILY [facility] Last Admin: 10/11/18 12:37 Dose: 5 mg Non-Formulary Medication (Olopatadine Hcl [Olopatadine Hcl]) 2.5 ml OP DAILY [facility] A/P Acute COPD Exacerbation r/o Aspiration Anoxic Brain Injury Seizure Disorder HTN Hyperlipidemia - on empiric antibiotics - O2 to keep SpO2 >90% - aspiration precautions - BiPAP to assist in work of breathing - DVT prophylaxis
--- NOTE | 2018-10-11 17:18 | PN ---
Progress Note, Physician - Current Medication List Current Medications: Active Medications Amlodipine Besylate (Norvasc -) 5 mg PO DAILY [facility] Last Admin: 10/11/18 10:31 Dose: 5 mg Arformoterol Tartrate (Brovana (Restricted To Pulmonology/Resp) -) 1 amp NEB RBID [facility] Last Admin: 10/11/18 07:30 Dose: 1 amp Ascorbic Acid (Vitamin C -) 500 mg GT BID [facility] Last Admin: 10/11/18 10:31 Dose: 500 mg Atorvastatin Calcium (Lipitor -) 20 mg GT HS [facility] Bacitracin (Bacitracin -) 1 applic TP TID [facility] Last Admin: 10/11/18 14:32 Dose: 1 applic Budesonide (Pulmicort 0.5 Mg Nebulizer -) 1 amp NEB RBID [facility] Last Admin: 10/11/18 07:30 Dose: Not Given Calcium Carbonate (Calcium Carb Oral Suspension -) 500 mg GT BID [facility] Last Admin: 10/11/18 10:29 Dose: 500 mg Heparin Sodium (Porcine) (Heparin -) 5,000 unit SQ BID [facility] Last Admin: 10/11/18 10:31 Dose: 5,000 unit Sodium Chloride (Normal Saline -) 1,000 mls @ 50 mls/hr IV ASDIR [facility] Last Admin: 10/10/18 20:30 Dose: 50 mls/hr Piperacillin Sod/Tazobactam (Sod 3.375 gm/ Dextrose) 50 mls @ 100 mls/hr IVPB Q8H-IV [facility]; Protocol Last Admin: 10/11/18 10:27 Dose: 100 mls/hr Lactulose (Cephulac (Oral Use)) 10 gm GT DAILY [facility] Last Admin: 10/11/18 10:31 Dose: 10 gm Metoclopramide HCl (Reglan Oral Solution -) 5 mg GT DAILY [facility] Last Admin: 10/11/18 12:37 Dose: 5 mg Non-Formulary Medication (Olopatadine Hcl [Olopatadine Hcl]) 2.5 ml OP DAILY [facility] - Objective Vital Signs: Vital Signs Temperature 98.4 F 10/11/18 14:25 Pulse Rate 111 H 10/11/18 14:25 Respiratory Rate 17 10/11/18 14:25 Blood Pressure 121/88 10/11/18 14:25 O2 Sat by Pulse Oximetry (%) 99 10/11/18 09:00 Constitutional: Yes: No Distress HENT: Yes: Atraumatic Neck: Yes: Other (trach collar) Cardiovascular: Yes: Regular Rate and Rhythm Respiratory: Yes: Rhonchi Gastrointestinal: Yes: Normal Bowel Sounds, Other (peg in place) Extremities: Yes: Other (contracted) Edema: No Neurological: Yes: Other (awake) Labs: CBC, BMP 10/10/18 05:35 10/10/18 05:35 INR, PTT INR 1.03 (0.83-1.09) 10/09/18 12:10 Problem List - Problems (1) COPD exacerbation Assessment/Plan: on bipap duo nebs prn Code(s): J44.1 - CHRONIC OBSTRUCTIVE PULMONARY DISEASE W (ACUTE) EXACERBATION (2) Anoxic brain injury Code(s): G93.1 - ANOXIC BRAIN DAMAGE, NOT ELSEWHERE CLASSIFIED (3) Aspiration pneumonia Assessment/Plan: iv abx id on board Code(s): J69.0 - PNEUMONITIS DUE TO INHALATION OF FOOD AND VOMIT (4) Cerebral palsy Code(s): G80.9 - CEREBRAL PALSY, UNSPECIFIED (5) Feeding by G-tube Assessment/Plan: will start tube feeds Code(s): Z93.1 - GASTROSTOMY STATUS (6) Functional quadriplegia Code(s): R53.2 - FUNCTIONAL QUADRIPLEGIA (7) HLD (hyperlipidemia) Code(s): E78.5 - HYPERLIPIDEMIA, UNSPECIFIED (8) HTN (hypertension) Assessment/Plan: on meds monitor Code(s): I10 - ESSENTIAL (PRIMARY) HYPERTENSION (9) Hypoxia Code(s): R09.02 - HYPOXEMIA (10) Seizure disorder Code(s): G40.909 - EPILEPSY, UNSP, NOT INTRACTABLE, WITHOUT STATUS EPILEPTICUS
[2018-10-11] MEDS: ATORVASTATIN CA 20 MG TABLET (FP) GT SCH (23:24)
[2018-10-12] MEDS ORDERED: PIPERACILLIN/TAZOBACTAM 3.375 GM VIAL IVPB ONE ×3 (01:38→16:08)
[2018-10-12] MEDS ORDERED: DEXTROSE 5%-WATER - 50 ML IVPB ONE ×3 (01:38→16:08)
[2018-10-12] MEDS: PIPERACILLIN/TAZOB 3.375 GM 3.375 GM in DEXTROSE 5%-WATER - 50 ML IVPB SCH ×3 (02:08→17:22)
[2018-10-12 07:18] LABS: ALBUMIN 2.5 g/dl (3.4-5.0); BILIRUBIN,TOTAL 0.4 mg/dL (0.2-1); BLOOD UREA NITROGEN 5.6 mg/dL (7-18); CALCIUM 8.8 mg/dL (8.5-10.1); CREATININE 0.3 mg/dL (0.55-1.3); TOT PROT 6.7 g/dl (6.4-8.2)
[2018-10-12 07:33] LABS: BASO % 0.3 % (0-2.0); EOS % 0.4 % (0-4.5); HEMATOCRIT 38.2 % (32.4-45.2); HEMOGLOBIN 13.3 GM/dL (10.7-15.3); LYMPH % 9.5 % (8-40); MCH 30.8 pg (25.7-33.7); MCHC 34.8 g/dl (32.0-36.0); MEAN CELL VOLUME 88.5 fl (80-96); MEAN PLT VOLUME 7.5 fl (7.5-11.1); MONO % 10.1 % (3.8-10.2); NEUT % 79.7 % (42.8-82.8); PLATELET COUNT 345 K/MM3 (134-434); POTASSIUM 2.8 mmol/L (3.5-5.1); RBC 4.32 M/mm3 (3.60-5.2); RDW 13.3 % (11.6-15.6); WHITE BLOOD COUNT 12.2 K/mm3 (4.0-10.0)
[2018-10-12] MEDS: BUDESONIDE 0.5 MG/2 ML INH SUSP VIAL NEB SCH ×2 (08:44→20:55)
[2018-10-12] MEDS: ARFORMOTEROL TARTRATE 15 MCG/2 ML VIAL NEB SCH ×2 (08:44→20:45)
[2018-10-12] MEDS: LACTULOSE 20 GM/30 ML UDC (FOR ORAL USE ONLY) GT SCH (10:11)
[2018-10-12] MEDS: CALCIUM CARBONATE SUSPENSION - 500 MG/5 ML ML GT SCH ×2 (10:12→23:00)
[2018-10-12] MEDS: METOCLOPRAMIDE HCL 5 MG/5 ML UNIT DOSE CUP GT SCH (10:12)
[2018-10-12] MEDS: HEPARIN NA (PORCINE) 5,000 UNITS/ML 1ML VIAL SQ SCH ×2 (10:13→23:00)
[2018-10-12] MEDS: amLODIPine BESYLATE 5 MG TABLET (FP) PO SCH (10:13)
[2018-10-12] MEDS: BACITRACIN 15 GM TUBE TOPICAL OINTMENT TP SCH ×3 (10:13→23:00)
[2018-10-12] MEDS: ASCORBIC ACID 500 MG TABLET (FP) GT SCH ×2 (10:13→23:08)
--- NOTE | 2018-10-12 10:46 | PN ---
Progress Note (short form) - Note Progress Note: PULMONARY Pt nonverbal, awake on BiPAP, saturating well. Vital Signs Period Temp Pulse Resp BP Sys/Restrepo Pulse Ox Last 24 Hr 98.4 F-99.4 F 111-117 17- 121-175/78-97 97-97 Gen: NAD on BiPAP Heart: RRR Lung: decreased breath sounds at the bases Abd: soft, nontender Ext: no edema, contracted CBC, BMP 10/12/18 05:40 10/12/18 05:40 Active Medications Amlodipine Besylate (Norvasc -) 5 mg PO DAILY [facility] Last Admin: 10/12/18 10:13 Dose: 5 mg Arformoterol Tartrate (Brovana (Restricted To Pulmonology/Resp) -) 1 amp NEB RBID [facility] Last Admin: 10/12/18 08:44 Dose: 1 amp Ascorbic Acid (Vitamin C -) 500 mg GT BID [facility] Last Admin: 10/12/18 10:13 Dose: 500 mg Atorvastatin Calcium (Lipitor -) 20 mg GT HS [facility] Last Admin: 10/11/18 23:24 Dose: 20 mg Bacitracin (Bacitracin -) 1 applic TP TID [facility] Last Admin: 10/12/18 10:13 Dose: 1 applic Budesonide (Pulmicort 0.5 Mg Nebulizer -) 1 amp NEB RBID [facility] Last Admin: 10/12/18 08:44 Dose: 1 amp Calcium Carbonate (Calcium Carb Oral Suspension -) 500 mg GT BID [facility] Last Admin: 10/12/18 10:12 Dose: 500 mg Heparin Sodium (Porcine) (Heparin -) 5,000 unit SQ BID [facility] Last Admin: 10/12/18 10:13 Dose: 5,000 unit Piperacillin Sod/Tazobactam (Sod 3.375 gm/ Dextrose) 50 mls @ 100 mls/hr IVPB Q8H-IV [facility]; Protocol Last Admin: 10/12/18 10:13 Dose: 100 mls/hr Lactulose (Cephulac (Oral Use)) 10 gm GT DAILY [facility] Last Admin: 10/12/18 10:11 Dose: 10 gm Metoclopramide HCl (Reglan Oral Solution -) 5 mg GT DAILY [facility] Last Admin: 10/12/18 10:12 Dose: 5 mg Non-Formulary Medication (Olopatadine Hcl [Olopatadine Hcl]) 2.5 ml OP DAILY [facility] A/P Acute COPD Exacerbation r/o Aspiration Anoxic Brain Injury Seizure Disorder HTN Hyperlipidemia - on empiric antibiotics - O2 to keep SpO2 >90% - aspiration precautions - BiPAP to assist in work of breathing - can attempt ventimask - DVT prophylaxis
[2018-10-12] MEDS: POTASSIUM CHLORIDE ORAL LIQUID 20 MEQ/15 ML PO SCH ×3 (10:58→23:11)
--- NOTE | 2018-10-12 11:29 | PN ---
Progress Note, Physician History of Present Illness: She is awake and comfortable on normal bipap setting at IPAP 15, EPAP 5, O2 at 40% with rate 14. - Current Medication List Current Medications: Active Medications Amlodipine Besylate (Norvasc -) 5 mg PO DAILY [facility] Last Admin: 10/12/18 10:13 Dose: 5 mg Arformoterol Tartrate (Brovana (Restricted To Pulmonology/Resp) -) 1 amp NEB RBID [facility] Last Admin: 10/12/18 08:44 Dose: 1 amp Ascorbic Acid (Vitamin C -) 500 mg GT BID [facility] Last Admin: 10/12/18 10:13 Dose: 500 mg Atorvastatin Calcium (Lipitor -) 20 mg GT HS [facility] Last Admin: 10/11/18 23:24 Dose: 20 mg Bacitracin (Bacitracin -) 1 applic TP TID [facility] Last Admin: 10/12/18 10:13 Dose: 1 applic Budesonide (Pulmicort 0.5 Mg Nebulizer -) 1 amp NEB RBID [facility] Last Admin: 10/12/18 08:44 Dose: 1 amp Calcium Carbonate (Calcium Carb Oral Suspension -) 500 mg GT BID [facility] Last Admin: 10/12/18 10:12 Dose: 500 mg Heparin Sodium (Porcine) (Heparin -) 5,000 unit SQ BID [facility] Last Admin: 10/12/18 10:13 Dose: 5,000 unit Piperacillin Sod/Tazobactam (Sod 3.375 gm/ Dextrose) 50 mls @ 100 mls/hr IVPB Q8H-IV [facility]; Protocol Last Admin: 10/12/18 10:13 Dose: 100 mls/hr Lactulose (Cephulac (Oral Use)) 10 gm GT DAILY [facility] Last Admin: 10/12/18 10:11 Dose: 10 gm Metoclopramide HCl (Reglan Oral Solution -) 5 mg GT DAILY [facility] Last Admin: 10/12/18 10:12 Dose: 5 mg Non-Formulary Medication (Olopatadine Hcl [Olopatadine Hcl]) 2.5 ml OP DAILY [facility] Potassium Chloride (Potassium Chloride Oral Liquid) 40 meq PO Q4H [facility] Stop: 10/12/18 15:01 Last Admin: 10/12/18 10:58 Dose: 40 meq - Objective Vital Signs: Vital Signs Temperature 99.4 F 10/12/18 05:00 Pulse Rate 114 H 10/12/18 05:00 Respiratory Rate 10/11/18 22:00 Blood Pressure 175/97 H 10/12/18 05:00 O2 Sat by Pulse Oximetry (%) 97 10/12/18 08:45 Constitutional: Yes: No Distress, Calm Neck: Yes: Supple Cardiovascular: Yes: Regular Rate and Rhythm Respiratory: Yes: Regular, Diminished, On BiPap Gastrointestinal: Yes: Soft, Hypoactive Bowel Sounds Extremities: Yes: Other (Contracted) Edema: No Labs: CBC, BMP 10/12/18 05:40 10/12/18 05:40 INR, PTT INR 1.03 (0.83-1.09) 10/09/18 12:10 - ....Imaging EKG: Report Reviewed (Tele: ST) Assessment/Plan Problems (1) COPD exacerbation Code(s): J44.1 - CHRONIC OBSTRUCTIVE PULMONARY DISEASE W (ACUTE) EXACERBATION (2) Anoxic brain injury Code(s): G93.1 - ANOXIC BRAIN DAMAGE, NOT ELSEWHERE CLASSIFIED (3) Aspiration pneumonia Code(s): J69.0 - PNEUMONITIS DUE TO INHALATION OF FOOD AND VOMIT (4) Cerebral palsy Code(s): G80.9 - CEREBRAL PALSY, UNSPECIFIED (5) Feeding by G-tube Code(s): Z93.1 - GASTROSTOMY STATUS (6) Functional quadriplegia Code(s): R53.2 - FUNCTIONAL QUADRIPLEGIA (7) HLD (hyperlipidemia) Code(s): E78.5 - HYPERLIPIDEMIA, UNSPECIFIED (8) HTN (hypertension) Code(s): I10 - ESSENTIAL (PRIMARY) HYPERTENSION (9) Hypoxia Code(s): R09.02 - HYPOXEMIA (10) Seizure disorder Code(s): G40.909 - EPILEPSY, UNSP, NOT INTRACTABLE, WITHOUT STATUS EPILEPTICUS PLAN: Empiric ABX course per ID Wean FIO2 to keep SpO2 >90% Aspiration precautions BD TX Monitor off systemic steroids VTE prophylaxis, enteral feeds, replete K NIPPV support for increased WOB Continue Norvasc 5 qd, Lopressor 25 bid, Lipitor 40 qhs
--- NOTE | 2018-10-12 13:09 | PN ---
Progress Note, Physician History of Present Illness: stable no new issues - Current Medication List Current Medications: Active Medications Amlodipine Besylate (Norvasc -) 5 mg PO DAILY [facility] Last Admin: 10/12/18 10:13 Dose: 5 mg Arformoterol Tartrate (Brovana (Restricted To Pulmonology/Resp) -) 1 amp NEB RBID [facility] Last Admin: 10/12/18 08:44 Dose: 1 amp Ascorbic Acid (Vitamin C -) 500 mg GT BID [facility] Last Admin: 10/12/18 10:13 Dose: 500 mg Atorvastatin Calcium (Lipitor -) 20 mg GT HS [facility] Last Admin: 10/11/18 23:24 Dose: 20 mg Bacitracin (Bacitracin -) 1 applic TP TID [facility] Last Admin: 10/12/18 10:13 Dose: 1 applic Budesonide (Pulmicort 0.5 Mg Nebulizer -) 1 amp NEB RBID [facility] Last Admin: 10/12/18 08:44 Dose: 1 amp Calcium Carbonate (Calcium Carb Oral Suspension -) 500 mg GT BID [facility] Last Admin: 10/12/18 10:12 Dose: 500 mg Heparin Sodium (Porcine) (Heparin -) 5,000 unit SQ BID [facility] Last Admin: 10/12/18 10:13 Dose: 5,000 unit Piperacillin Sod/Tazobactam (Sod 3.375 gm/ Dextrose) 50 mls @ 100 mls/hr IVPB Q8H-IV [facility]; Protocol Last Admin: 10/12/18 10:13 Dose: 100 mls/hr Lactulose (Cephulac (Oral Use)) 10 gm GT DAILY [facility] Last Admin: 10/12/18 10:11 Dose: 10 gm Metoclopramide HCl (Reglan Oral Solution -) 5 mg GT DAILY [facility] Last Admin: 10/12/18 10:12 Dose: 5 mg Non-Formulary Medication (Olopatadine Hcl [Olopatadine Hcl]) 2.5 ml OP DAILY [facility] Potassium Chloride (Potassium Chloride Oral Liquid) 40 meq PO Q4H [facility] Stop: 10/12/18 15:01 Last Admin: 10/12/18 10:58 Dose: 40 meq - Objective Vital Signs: Vital Signs Temperature 98.9 F 10/12/18 09:00 Pulse Rate 127 H 10/12/18 09:00 Respiratory Rate 22 H 10/12/18 09:00 Blood Pressure 161/63 08/10/19 09:00 O2 Sat by Pulse Oximetry (%) 97 10/12/18 10:00 Constitutional: Yes: No Distress, Calm Cardiovascular: Yes: S1, S2 Respiratory: Yes: Regular, Poor Air Entry Gastrointestinal: Yes: Normal Bowel Sounds, Soft Musculoskeletal: Yes: WNL Extremities: Yes: Other (contracted) Neurological: Yes: Other Labs: CBC, BMP 10/12/18 05:40 10/12/18 05:40 INR, PTT INR 1.03 (0.83-1.09) 10/09/18 12:10 Assessment/Plan Problem List - Problems (1) COPD exacerbation Code(s): J44.1 - CHRONIC OBSTRUCTIVE PULMONARY DISEASE W (ACUTE) EXACERBATION (2) Anoxic brain injury Code(s): G93.1 - ANOXIC BRAIN DAMAGE, NOT ELSEWHERE CLASSIFIED (3) Aspiration pneumonia Code(s): J69.0 - PNEUMONITIS DUE TO INHALATION OF FOOD AND VOMIT (4) Cerebral palsy Code(s): G80.9 - CEREBRAL PALSY, UNSPECIFIED (5) Feeding by G-tube Code(s): Z93.1 - GASTROSTOMY STATUS (6) Functional quadriplegia Code(s): R53.2 - FUNCTIONAL QUADRIPLEGIA (7) HLD (hyperlipidemia) Code(s): E78.5 - HYPERLIPIDEMIA, UNSPECIFIED (8) HTN (hypertension) Code(s): I10 - ESSENTIAL (PRIMARY) HYPERTENSION (9) Hypoxia Code(s): R09.02 - HYPOXEMIA (10) Seizure disorder Code(s): G40.909 - EPILEPSY, UNSP, NOT INTRACTABLE, WITHOUT STATUS EPILEPTICUS plan continue abx resp support nutrition rest as per the team
[2018-10-12] MEDS ORDERED: PT OWN MED DRAWER 7, Y5N ONE ×3 (14:40→23:11)
--- NOTE | 2018-10-12 19:25 | PN ---
Progress Note, Physician History of Present Illness: comfortable - Current Medication List Current Medications: Active Medications Amlodipine Besylate (Norvasc -) 5 mg PO DAILY [facility] Last Admin: 10/12/18 10:13 Dose: 5 mg Arformoterol Tartrate (Brovana (Restricted To Pulmonology/Resp) -) 1 amp NEB RBID [facility] Last Admin: 10/12/18 08:44 Dose: 1 amp Ascorbic Acid (Vitamin C -) 500 mg GT BID [facility] Last Admin: 10/12/18 10:13 Dose: 500 mg Atorvastatin Calcium (Lipitor -) 20 mg GT HS [facility] Last Admin: 10/11/18 23:24 Dose: 20 mg Bacitracin (Bacitracin -) 1 applic TP TID [facility] Last Admin: 10/12/18 13:18 Dose: 1 applic Budesonide (Pulmicort 0.5 Mg Nebulizer -) 1 amp NEB RBID [facility] Last Admin: 10/12/18 08:44 Dose: 1 amp Calcium Carbonate (Calcium Carb Oral Suspension -) 500 mg GT BID [facility] Last Admin: 10/12/18 10:12 Dose: 500 mg Heparin Sodium (Porcine) (Heparin -) 5,000 unit SQ BID [facility] Last Admin: 10/12/18 10:13 Dose: 5,000 unit Piperacillin Sod/Tazobactam (Sod 3.375 gm/ Dextrose) 50 mls @ 100 mls/hr IVPB Q8H-IV [facility]; Protocol Last Admin: 10/12/18 17:22 Dose: 100 mls/hr Lactulose (Cephulac (Oral Use)) 10 gm GT DAILY [facility] Last Admin: 10/12/18 10:11 Dose: 10 gm Metoclopramide HCl (Reglan Oral Solution -) 5 mg GT DAILY [facility] Last Admin: 10/12/18 10:12 Dose: 5 mg Non-Formulary Medication (Olopatadine Hcl [Olopatadine Hcl]) 2.5 ml OP DAILY [facility] - Objective Vital Signs: Vital Signs Temperature 98.5 F 10/12/18 14:00 Pulse Rate 121 H 10/12/18 14:00 Respiratory Rate 22 H 10/12/18 14:00 Blood Pressure 138/69 10/12/18 14:00 O2 Sat by Pulse Oximetry (%) 97 10/12/18 10:00 Constitutional: Yes: Calm HENT: Yes: Atraumatic Neck: Yes: Other (trach collar) Cardiovascular: Yes: Regular Rate and Rhythm Respiratory: Yes: Rhonchi Gastrointestinal: Yes: Normal Bowel Sounds, Other (peg in place) Extremities: Yes: Other (contracted) Neurological: Yes: Other (awake) Labs: CBC, BMP 10/12/18 05:40 10/12/18 05:40 INR, PTT INR 1.03 (0.83-1.09) 10/09/18 12:10 Problem List - Problems (1) COPD exacerbation Assessment/Plan: on bipap duo nebs prn Code(s): J44.1 - CHRONIC OBSTRUCTIVE PULMONARY DISEASE W (ACUTE) EXACERBATION (2) Anoxic brain injury Code(s): G93.1 - ANOXIC BRAIN DAMAGE, NOT ELSEWHERE CLASSIFIED (3) Aspiration pneumonia Assessment/Plan: iv abx aspiration precautins Code(s): J69.0 - PNEUMONITIS DUE TO INHALATION OF FOOD AND VOMIT (4) Cerebral palsy Code(s): G80.9 - CEREBRAL PALSY, UNSPECIFIED (5) Feeding by G-tube Assessment/Plan: will start tube feeds Code(s): Z93.1 - GASTROSTOMY STATUS (6) Functional quadriplegia Code(s): R53.2 - FUNCTIONAL QUADRIPLEGIA (7) HLD (hyperlipidemia) Code(s): E78.5 - HYPERLIPIDEMIA, UNSPECIFIED (8) HTN (hypertension) Assessment/Plan: on meds monitor Code(s): I10 - ESSENTIAL (PRIMARY) HYPERTENSION (9) Hypoxia Code(s): R09.02 - HYPOXEMIA (10) Seizure disorder Code(s): G40.909 - EPILEPSY, UNSP, NOT INTRACTABLE, WITHOUT STATUS EPILEPTICUS
[2018-10-12] MEDS: ATORVASTATIN CA 20 MG TABLET (FP) GT SCH (23:07)
[2018-10-13] MEDS ORDERED: PIPERACILLIN/TAZOBACTAM 3.375 GM VIAL IVPB ONE ×3 (02:15→17:20)
[2018-10-13] MEDS ORDERED: DEXTROSE 5%-WATER - 50 ML IVPB ONE ×3 (02:15→17:20)
[2018-10-13] MEDS: PIPERACILLIN/TAZOB 3.375 GM 3.375 GM in DEXTROSE 5%-WATER - 50 ML IVPB SCH ×3 (02:31→17:42)
[2018-10-13] MEDS: BACITRACIN 15 GM TUBE TOPICAL OINTMENT TP SCH ×3 (06:19→23:02)
[2018-10-13] MEDS ORDERED: ALBUTEROL SO4 2.5/IPRATROPIUM 0.5 INH SOL 3 ML VIAL.NEB. NEB ONE (07:39)
[2018-10-13] MEDS ORDERED: PT OWN MED DRAWER 7, Y5N ONE ×3 (07:39→22:23)
[2018-10-13] MEDS: ARFORMOTEROL TARTRATE 15 MCG/2 ML VIAL NEB SCH ×2 (08:03→20:40)
[2018-10-13] MEDS: BUDESONIDE 0.5 MG/2 ML INH SUSP VIAL NEB SCH ×2 (08:03→20:40)
--- NOTE | 2018-10-13 10:49 | PN ---
Progress Note (short form) - Note Progress Note: PULMONARY Pt nonverbal, remains on BiPAP, saturating well. Vital Signs Period Temp Pulse Resp BP Sys/Restrepo Pulse Ox Last 24 Hr 97 F-99.2 F 106-125 20-22 138-184/69-109 95-97 Gen: NAD on BiPAP Heart: RRR Lung: decreased breath sounds at the bases Abd: soft, nontender Ext: no edema, contracted CBC, BMP 10/12/18 05:40 10/12/18 05:40 Active Medications Amlodipine Besylate (Norvasc -) 5 mg PO DAILY [facility] Last Admin: 10/12/18 10:13 Dose: 5 mg Arformoterol Tartrate (Brovana (Restricted To Pulmonology/Resp) -) 1 amp NEB RBID [facility] Last Admin: 10/13/18 08:03 Dose: 1 amp Ascorbic Acid (Vitamin C -) 500 mg GT BID [facility] Last Admin: 10/12/18 23:08 Dose: 500 mg Atorvastatin Calcium (Lipitor -) 20 mg GT HS [facility] Last Admin: 10/12/18 23:07 Dose: 20 mg Bacitracin (Bacitracin -) 1 applic TP TID [facility] Last Admin: 10/13/18 06:19 Dose: 1 applic Budesonide (Pulmicort 0.5 Mg Nebulizer -) 1 amp NEB RBID [facility] Last Admin: 10/13/18 08:03 Dose: 1 amp Calcium Carbonate (Calcium Carb Oral Suspension -) 500 mg GT BID [facility] Last Admin: 10/12/18 23:00 Dose: 500 mg Heparin Sodium (Porcine) (Heparin -) 5,000 unit SQ BID [facility] Last Admin: 10/12/18 23:00 Dose: 5,000 unit Piperacillin Sod/Tazobactam (Sod 3.375 gm/ Dextrose) 50 mls @ 100 mls/hr IVPB Q8H-IV [facility]; Protocol Last Admin: 10/13/18 02:31 Dose: 100 mls/hr Lactulose (Cephulac (Oral Use)) 10 gm GT DAILY [facility] Last Admin: 10/12/18 10:11 Dose: 10 gm Metoclopramide HCl (Reglan Oral Solution -) 5 mg GT DAILY [facility] Last Admin: 10/12/18 10:12 Dose: 5 mg Non-Formulary Medication (Olopatadine Hcl [Olopatadine Hcl]) 2.5 ml OP DAILY [facility] Potassium Chloride (Potassium Chloride Oral Liquid) 40 meq PO BID [facility] Last Admin: 10/12/18 23:11 Dose: 40 meq A/P Acute COPD Exacerbation r/o Aspiration Anoxic Brain Injury Seizure Disorder HTN Hyperlipidemia - on empiric antibiotics - O2 to keep SpO2 >90% - aspiration precautions - BiPAP to assist in work of breathing - can attempt ventimask - replete lytes - DVT prophylaxis
[2018-10-13] MEDS: CALCIUM CARBONATE SUSPENSION - 500 MG/5 ML ML GT SCH ×2 (11:10→23:03)
[2018-10-13] MEDS: LACTULOSE 20 GM/30 ML UDC (FOR ORAL USE ONLY) GT SCH (11:12)
[2018-10-13] MEDS: HEPARIN NA (PORCINE) 5,000 UNITS/ML 1ML VIAL SQ SCH ×2 (11:13→23:02)
[2018-10-13] MEDS: POTASSIUM CHLORIDE ORAL LIQUID 20 MEQ/15 ML PO SCH ×2 (11:13→23:03)
[2018-10-13] MEDS: amLODIPine BESYLATE 5 MG TABLET (FP) PO SCH (11:13)
[2018-10-13] MEDS: METOCLOPRAMIDE HCL 5 MG/5 ML UNIT DOSE CUP GT SCH (11:15)
[2018-10-13] MEDS: ASCORBIC ACID 500 MG TABLET (FP) GT SCH ×2 (11:16→23:04)
--- NOTE | 2018-10-13 12:45 | PN ---
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 - Current Medication List Current Medications: Active Medications Amlodipine Besylate (Norvasc -) 5 mg PO DAILY [facility] Last Admin: 10/13/18 11:13 Dose: 5 mg Arformoterol Tartrate (Brovana (Restricted To Pulmonology/Resp) -) 1 amp NEB RBID [facility] Last Admin: 10/13/18 08:03 Dose: 1 amp Ascorbic Acid (Vitamin C -) 500 mg GT BID [facility] Last Admin: 10/13/18 11:16 Dose: 500 mg Atorvastatin Calcium (Lipitor -) 20 mg GT HS [facility] Last Admin: 10/12/18 23:07 Dose: 20 mg Bacitracin (Bacitracin -) 1 applic TP TID [facility] Last Admin: 10/13/18 06:19 Dose: 1 applic Budesonide (Pulmicort 0.5 Mg Nebulizer -) 1 amp NEB RBID [facility] Last Admin: 10/13/18 08:03 Dose: 1 amp Calcium Carbonate (Calcium Carb Oral Suspension -) 500 mg GT BID [facility] Last Admin: 10/13/18 11:10 Dose: 500 mg Heparin Sodium (Porcine) (Heparin -) 5,000 unit SQ BID [facility] Last Admin: 10/13/18 11:13 Dose: 5,000 unit Piperacillin Sod/Tazobactam (Sod 3.375 gm/ Dextrose) 50 mls @ 100 mls/hr IVPB Q8H-IV [facility]; Protocol Last Admin: 10/13/18 11:16 Dose: 100 mls/hr Lactulose (Cephulac (Oral Use)) 10 gm GT DAILY [facility] Last Admin: 10/13/18 11:12 Dose: 10 gm Metoclopramide HCl (Reglan Oral Solution -) 5 mg GT DAILY [facility] Last Admin: 10/13/18 11:15 Dose: 5 mg Non-Formulary Medication (Olopatadine Hcl [Olopatadine Hcl]) 2.5 ml OP DAILY [facility] Potassium Chloride (Potassium Chloride Oral Liquid) 40 meq PO BID [facility] Last Admin: 10/13/18 11:13 Dose: 40 meq - Objective Vital Signs: Vital Signs Temperature 97 F L 10/13/18 09:00 Pulse Rate 106 H 10/13/18 09:00 Respiratory Rate 20 10/13/18 09:00 Blood Pressure 168/88 10/13/18 09:00 O2 Sat by Pulse Oximetry (%) 97 10/13/18 12:02 Constitutional: Yes: No Distress, Calm Cardiovascular: Yes: S1, S2 Respiratory: Yes: On Nasal O2 Gastrointestinal: Yes: Normal Bowel Sounds, Soft Musculoskeletal: Yes: WNL Extremities: Yes: Other Neurological: Yes: Other Labs: CBC, BMP 10/12/18 05:40 10/12/18 05:40 INR, PTT INR 1.03 (0.83-1.09) 10/09/18 12:10 Assessment/Plan Problem List - Problems (1) COPD exacerbation Code(s): J44.1 - CHRONIC OBSTRUCTIVE PULMONARY DISEASE W (ACUTE) EXACERBATION (2) Anoxic brain injury Code(s): G93.1 - ANOXIC BRAIN DAMAGE, NOT ELSEWHERE CLASSIFIED (3) Aspiration pneumonia Code(s): J69.0 - PNEUMONITIS DUE TO INHALATION OF FOOD AND VOMIT (4) Cerebral palsy Code(s): G80.9 - CEREBRAL PALSY, UNSPECIFIED (5) Feeding by G-tube Code(s): Z93.1 - GASTROSTOMY STATUS (6) Functional quadriplegia Code(s): R53.2 - FUNCTIONAL QUADRIPLEGIA (7) HLD (hyperlipidemia) Code(s): E78.5 - HYPERLIPIDEMIA, UNSPECIFIED (8) HTN (hypertension) Code(s): I10 - ESSENTIAL (PRIMARY) HYPERTENSION (9) Hypoxia Code(s): R09.02 - HYPOXEMIA (10) Seizure disorder Code(s): G40.909 - EPILEPSY, UNSP, NOT INTRACTABLE, WITHOUT STATUS EPILEPTICUS plan continue abx resp support nutrition rest as per the team
--- NOTE | 2018-10-13 13:05 | PN ---
Progress Note, Physician History of Present Illness: She is awake and comfortable on normal bipap setting at IPAP 15, EPAP 5, O2 at 40% with rate 14. - Current Medication List Current Medications: Active Medications Amlodipine Besylate (Norvasc -) 5 mg PO DAILY [facility] Last Admin: 10/13/18 11:13 Dose: 5 mg Arformoterol Tartrate (Brovana (Restricted To Pulmonology/Resp) -) 1 amp NEB RBID [facility] Last Admin: 10/13/18 08:03 Dose: 1 amp Ascorbic Acid (Vitamin C -) 500 mg GT BID [facility] Last Admin: 10/13/18 11:16 Dose: 500 mg Atorvastatin Calcium (Lipitor -) 20 mg GT HS [facility] Last Admin: 10/12/18 23:07 Dose: 20 mg Bacitracin (Bacitracin -) 1 applic TP TID [facility] Last Admin: 10/13/18 06:19 Dose: 1 applic Budesonide (Pulmicort 0.5 Mg Nebulizer -) 1 amp NEB RBID [facility] Last Admin: 10/13/18 08:03 Dose: 1 amp Calcium Carbonate (Calcium Carb Oral Suspension -) 500 mg GT BID [facility] Last Admin: 10/13/18 11:10 Dose: 500 mg Heparin Sodium (Porcine) (Heparin -) 5,000 unit SQ BID [facility] Last Admin: 10/13/18 11:13 Dose: 5,000 unit Piperacillin Sod/Tazobactam (Sod 3.375 gm/ Dextrose) 50 mls @ 100 mls/hr IVPB Q8H-IV [facility]; Protocol Last Admin: 10/13/18 11:16 Dose: 100 mls/hr Lactulose (Cephulac (Oral Use)) 10 gm GT DAILY [facility] Last Admin: 10/13/18 11:12 Dose: 10 gm Metoclopramide HCl (Reglan Oral Solution -) 5 mg GT DAILY [facility] Last Admin: 10/13/18 11:15 Dose: 5 mg Non-Formulary Medication (Olopatadine Hcl [Olopatadine Hcl]) 2.5 ml OP DAILY [facility] Potassium Chloride (Potassium Chloride Oral Liquid) 40 meq PO BID [facility] Last Admin: 10/13/18 11:13 Dose: 40 meq - Objective Vital Signs: Vital Signs Temperature 97 F L 10/13/18 09:00 Pulse Rate 106 H 10/13/18 09:00 Respiratory Rate 20 10/13/18 09:00 Blood Pressure 168/88 10/13/18 09:00 O2 Sat by Pulse Oximetry (%) 97 10/13/18 12:02 Constitutional: Yes: No Distress, Calm Neck: Yes: Supple, Tenderness Respiratory: Yes: Regular, Diminished, On BiPap Gastrointestinal: Yes: Soft, Hypoactive Bowel Sounds Extremities: Yes: Other (Contracted) Edema: No Labs: CBC, BMP 10/12/18 05:40 10/12/18 05:40 INR, PTT INR 1.03 (0.83-1.09) 10/09/18 12:10 Assessment/Plan Problems (1) COPD exacerbation Code(s): J44.1 - CHRONIC OBSTRUCTIVE PULMONARY DISEASE W (ACUTE) EXACERBATION (2) Anoxic brain injury Code(s): G93.1 - ANOXIC BRAIN DAMAGE, NOT ELSEWHERE CLASSIFIED (3) Aspiration pneumonia Code(s): J69.0 - PNEUMONITIS DUE TO INHALATION OF FOOD AND VOMIT (4) Cerebral palsy Code(s): G80.9 - CEREBRAL PALSY, UNSPECIFIED (5) Feeding by G-tube Code(s): Z93.1 - GASTROSTOMY STATUS (6) Functional quadriplegia Code(s): R53.2 - FUNCTIONAL QUADRIPLEGIA (7) HLD (hyperlipidemia) Code(s): E78.5 - HYPERLIPIDEMIA, UNSPECIFIED (8) HTN (hypertension) Code(s): I10 - ESSENTIAL (PRIMARY) HYPERTENSION (9) Hypoxia Code(s): R09.02 - HYPOXEMIA (10) Seizure disorder Code(s): G40.909 - EPILEPSY, UNSP, NOT INTRACTABLE, WITHOUT STATUS EPILEPTICUS PLAN: ABX course per ID to cover pseudomonas Wean FIO2 to keep SpO2 >90% Aspiration precautions BD TX Monitor off systemic steroids VTE prophylaxis, enteral feeds, replete K NIPPV support for increased WOB Continue Norvasc 5 qd, Lopressor 25 bid, Lipitor 40 qhs
--- NOTE | 2018-10-13 16:02 | PN ---
Progress Note, Physician History of Present Illness: comfortable - Current Medication List Current Medications: Active Medications Amlodipine Besylate (Norvasc -) 5 mg PO DAILY [facility] Last Admin: 10/13/18 11:13 Dose: 5 mg Arformoterol Tartrate (Brovana (Restricted To Pulmonology/Resp) -) 1 amp NEB RBID [facility] Last Admin: 10/13/18 08:03 Dose: 1 amp Ascorbic Acid (Vitamin C -) 500 mg GT BID [facility] Last Admin: 10/13/18 11:16 Dose: 500 mg Atorvastatin Calcium (Lipitor -) 20 mg GT HS [facility] Last Admin: 10/12/18 23:07 Dose: 20 mg Bacitracin (Bacitracin -) 1 applic TP TID [facility] Last Admin: 10/13/18 14:11 Dose: 1 applic Budesonide (Pulmicort 0.5 Mg Nebulizer -) 1 amp NEB RBID [facility] Last Admin: 10/13/18 08:03 Dose: 1 amp Calcium Carbonate (Calcium Carb Oral Suspension -) 500 mg GT BID [facility] Last Admin: 10/13/18 11:10 Dose: 500 mg Heparin Sodium (Porcine) (Heparin -) 5,000 unit SQ BID [facility] Last Admin: 10/13/18 11:13 Dose: 5,000 unit Piperacillin Sod/Tazobactam (Sod 3.375 gm/ Dextrose) 50 mls @ 100 mls/hr IVPB Q8H-IV [facility]; Protocol Last Admin: 10/13/18 11:16 Dose: 100 mls/hr Lactulose (Cephulac (Oral Use)) 10 gm GT DAILY [facility] Last Admin: 10/13/18 11:12 Dose: 10 gm Metoclopramide HCl (Reglan Oral Solution -) 5 mg GT DAILY [facility] Last Admin: 10/13/18 11:15 Dose: 5 mg Non-Formulary Medication (Olopatadine Hcl [Olopatadine Hcl]) 2.5 ml OP DAILY [facility] Potassium Chloride (Potassium Chloride Oral Liquid) 40 meq PO BID [facility] Last Admin: 10/13/18 11:13 Dose: 40 meq - Objective Vital Signs: Vital Signs Temperature 98.6 F 10/13/18 13:00 Pulse Rate 110 H 10/13/18 13:00 Respiratory Rate 20 10/13/18 13:00 Blood Pressure 152/80 10/13/18 13:00 O2 Sat by Pulse Oximetry (%) 97 10/13/18 12:02 Constitutional: Yes: No Distress HENT: Yes: Atraumatic Neck: Yes: Other (trach collar) Cardiovascular: Yes: Regular Rate and Rhythm Respiratory: Yes: Rhonchi Gastrointestinal: Yes: Normal Bowel Sounds, Other (peg in place) Extremities: Yes: WNL Neurological: Yes: Other (awake) Labs: CBC, BMP 10/12/18 05:40 10/12/18 05:40 INR, PTT INR 1.03 (0.83-1.09) 10/09/18 12:10 Problem List - Problems (1) COPD exacerbation Assessment/Plan: on bipap duo nebs prn Code(s): J44.1 - CHRONIC OBSTRUCTIVE PULMONARY DISEASE W (ACUTE) EXACERBATION (2) Anoxic brain injury Code(s): G93.1 - ANOXIC BRAIN DAMAGE, NOT ELSEWHERE CLASSIFIED (3) Aspiration pneumonia Assessment/Plan: iv abx aspiration precautins Code(s): J69.0 - PNEUMONITIS DUE TO INHALATION OF FOOD AND VOMIT (4) Cerebral palsy Code(s): G80.9 - CEREBRAL PALSY, UNSPECIFIED (5) Feeding by G-tube Assessment/Plan: will start tube feeds Code(s): Z93.1 - GASTROSTOMY STATUS (6) Functional quadriplegia Code(s): R53.2 - FUNCTIONAL QUADRIPLEGIA (7) HLD (hyperlipidemia) Code(s): E78.5 - HYPERLIPIDEMIA, UNSPECIFIED (8) HTN (hypertension) Assessment/Plan: on meds monitor...bp stabilizing now Code(s): I10 - ESSENTIAL (PRIMARY) HYPERTENSION (9) Hypoxia Code(s): R09.02 - HYPOXEMIA (10) Seizure disorder Assessment/Plan: on meds stable Code(s): G40.909 - EPILEPSY, UNSP, NOT INTRACTABLE, WITHOUT STATUS EPILEPTICUS
[2018-10-13] MEDS: ATORVASTATIN CA 20 MG TABLET (FP) GT SCH (23:03)
[2018-10-14] MEDS: PIPERACILLIN/TAZOB 3.375 GM 3.375 GM in DEXTROSE 5%-WATER - 50 ML IVPB SCH (02:30)
[2018-10-14] MEDS ORDERED: DEXTROSE 5%-WATER - 50 ML IVPB ONE ×2 (02:32→09:56)
[2018-10-14] MEDS ORDERED: PIPERACILLIN/TAZOBACTAM 3.375 GM VIAL IVPB ONE ×2 (02:32→09:56)
[2018-10-14] MEDS: BACITRACIN 15 GM TUBE TOPICAL OINTMENT TP SCH ×3 (05:30→22:45)
[2018-10-14] MEDS: ARFORMOTEROL TARTRATE 15 MCG/2 ML VIAL NEB SCH ×2 (07:30→20:00)
[2018-10-14] MEDS: BUDESONIDE 0.5 MG/2 ML INH SUSP VIAL NEB SCH ×2 (07:30→20:00)
[2018-10-14 08:36] LABS: ALBUMIN 2.5 g/dl (3.4-5.0); BILIRUBIN,TOTAL 0.2 mg/dL (0.2-1); BLOOD UREA NITROGEN 9.9 mg/dL (7-18); CALCIUM 8.7 mg/dL (8.5-10.1); CREATININE 0.3 mg/dL (0.55-1.3); POTASSIUM 4.5 mmol/L (3.5-5.1)
[2018-10-14 09:05] LABS: BASO % 0.2 % (0-2.0); EOS % 0.5 % (0-4.5); HEMATOCRIT 36.6 % (32.4-45.2); HEMOGLOBIN 12.7 GM/dL (10.7-15.3); LYMPH % 7.7 % (8-40); MCHC 34.6 g/dl (32.0-36.0); MEAN CELL VOLUME 89.4 fl (80-96); MEAN PLT VOLUME 7.6 fl (7.5-11.1); NEUT % 84.6 % (42.8-82.8); PLATELET COUNT 309 K/MM3 (134-434); RBC 4.09 M/mm3 (3.60-5.2); RDW 13.7 % (11.6-15.6); WHITE BLOOD COUNT 12.3 K/mm3 (4.0-10.0)
[2018-10-14] MEDS: CALCIUM CARBONATE SUSPENSION - 500 MG/5 ML ML GT SCH ×2 (10:08→22:46)
[2018-10-14] MEDS: LACTULOSE 20 GM/30 ML UDC (FOR ORAL USE ONLY) GT SCH (10:10)
[2018-10-14] MEDS: amLODIPine BESYLATE 5 MG TABLET (FP) PO SCH (10:11)
[2018-10-14] MEDS: HEPARIN NA (PORCINE) 5,000 UNITS/ML 1ML VIAL SQ SCH ×2 (10:11→22:44)
[2018-10-14] MEDS: METOCLOPRAMIDE HCL 5 MG/5 ML UNIT DOSE CUP GT SCH (10:12)
[2018-10-14] MEDS: POTASSIUM CHLORIDE ORAL LIQUID 20 MEQ/15 ML PO SCH ×2 (10:12→22:45)
--- NOTE | 2018-10-14 10:12 | PN ---
Progress Note, Physician History of Present Illness: pulmonary sleeping on bipap no distress - Current Medication List Current Medications: Active Medications Amlodipine Besylate (Norvasc -) 5 mg PO DAILY [facility] Last Admin: 10/13/18 11:13 Dose: 5 mg Arformoterol Tartrate (Brovana (Restricted To Pulmonology/Resp) -) 1 amp NEB RBID [facility] Last Admin: 10/14/18 07:30 Dose: 1 amp Ascorbic Acid (Vitamin C -) 500 mg GT BID [facility] Last Admin: 10/13/18 23:04 Dose: 500 mg Atorvastatin Calcium (Lipitor -) 20 mg GT HS [facility] Last Admin: 10/13/18 23:03 Dose: 20 mg Bacitracin (Bacitracin -) 1 applic TP TID [facility] Last Admin: 10/13/18 23:02 Dose: 1 applic Budesonide (Pulmicort 0.5 Mg Nebulizer -) 1 amp NEB RBID [facility] Last Admin: 10/14/18 07:30 Dose: 1 amp Calcium Carbonate (Calcium Carb Oral Suspension -) 500 mg GT BID [facility] Last Admin: 10/13/18 23:03 Dose: 500 mg Heparin Sodium (Porcine) (Heparin -) 5,000 unit SQ BID [facility] Last Admin: 10/13/18 23:02 Dose: 5,000 unit Piperacillin Sod/Tazobactam (Sod 3.375 gm/ Dextrose) 50 mls @ 100 mls/hr IVPB Q8H-IV [facility]; Protocol Last Admin: 10/14/18 02:30 Dose: 100 mls/hr Lactulose (Cephulac (Oral Use)) 10 gm GT DAILY [facility] Last Admin: 10/13/18 11:12 Dose: 10 gm Metoclopramide HCl (Reglan Oral Solution -) 5 mg GT DAILY [facility] Last Admin: 10/13/18 11:15 Dose: 5 mg Non-Formulary Medication (Olopatadine Hcl [Olopatadine Hcl]) 2.5 ml OP DAILY [facility] Potassium Chloride (Potassium Chloride Oral Liquid) 40 meq PO BID [facility] Last Admin: 10/13/18 23:03 Dose: 40 meq - Objective Vital Signs: Vital Signs Temperature 98.9 F 10/14/18 09:23 Pulse Rate 116 H 10/14/18 09:23 Respiratory Rate 22 H 10/14/18 09:23 Blood Pressure 169/104 H 10/14/18 09:23 O2 Sat by Pulse Oximetry (%) 96 10/14/18 06:38 Constitutional: Yes: Well Nourished, Other Eyes: Yes: WNL HENT: Yes: WNL Neck: Yes: WNL Cardiovascular: Yes: Regular Rate and Rhythm, S1, S2 Respiratory: Yes: Diminished, On BiPap Gastrointestinal: Yes: Normal Bowel Sounds, Soft Edema: No (contracted) Labs: CBC, BMP 10/14/18 06:26 10/14/18 06:26 INR, PTT INR 1.03 (0.83-1.09) 10/09/18 12:10 Problem List - Problems (1) COPD exacerbation Code(s): J44.1 - CHRONIC OBSTRUCTIVE PULMONARY DISEASE W (ACUTE) EXACERBATION (2) Scoliosis deformity of spine Code(s): M41.9 - SCOLIOSIS, UNSPECIFIED (3) Anoxic brain injury Code(s): G93.1 - ANOXIC BRAIN DAMAGE, NOT ELSEWHERE CLASSIFIED (4) Aspiration pneumonia Code(s): J69.0 - PNEUMONITIS DUE TO INHALATION OF FOOD AND VOMIT (5) Cerebral palsy Code(s): G80.9 - CEREBRAL PALSY, UNSPECIFIED (6) Functional quadriplegia Code(s): R53.2 - FUNCTIONAL QUADRIPLEGIA (7) Hypoxia Code(s): R09.02 - HYPOXEMIA (8) Seizure disorder Code(s): G40.909 - EPILEPSY, UNSP, NOT INTRACTABLE, WITHOUT STATUS EPILEPTICUS (9) Acute on chronic respiratory failure with hypoxia and hypercapnia Code(s): J96.21 - ACUTE AND CHRONIC RESPIRATORY FAILURE WITH HYPOXIA; J96.22 - ACUTE AND CHRONIC RESPIRATORY FAILURE WITH HYPERCAPNIA Assessment/Plan A/P Acute COPD Exacerbation improving r/o Aspiration Anoxic Brain Injury Seizure Disorder HTN Hyperlipidemia - antibiotics - O2 to keep SpO2 >90% - aspiration precautions - BiPAP to assist in work of breathing - attempt ventimask as tolerated - DVT prophylaxis - abg DR SUAREZ
[2018-10-14] MEDS: ASCORBIC ACID 500 MG TABLET (FP) GT SCH ×2 (10:13→22:46)
--- NOTE | 2018-10-14 10:36 | PN ---
Progress Note, Physician History of Present Illness: continues to need bipap no communication,non verbal - Current Medication List Current Medications: Active Medications Amlodipine Besylate (Norvasc -) 5 mg PO DAILY [facility] Last Admin: 10/13/18 11:13 Dose: 5 mg Arformoterol Tartrate (Brovana (Restricted To Pulmonology/Resp) -) 1 amp NEB RBID [facility] Last Admin: 10/14/18 07:30 Dose: 1 amp Ascorbic Acid (Vitamin C -) 500 mg GT BID [facility] Last Admin: 10/13/18 23:04 Dose: 500 mg Atorvastatin Calcium (Lipitor -) 20 mg GT HS [facility] Last Admin: 10/13/18 23:03 Dose: 20 mg Bacitracin (Bacitracin -) 1 applic TP TID [facility] Last Admin: 10/13/18 23:02 Dose: 1 applic Budesonide (Pulmicort 0.5 Mg Nebulizer -) 1 amp NEB RBID [facility] Last Admin: 10/14/18 07:30 Dose: 1 amp Calcium Carbonate (Calcium Carb Oral Suspension -) 500 mg GT BID [facility] Last Admin: 10/13/18 23:03 Dose: 500 mg Heparin Sodium (Porcine) (Heparin -) 5,000 unit SQ BID [facility] Last Admin: 10/13/18 23:02 Dose: 5,000 unit Piperacillin Sod/Tazobactam (Sod 3.375 gm/ Dextrose) 50 mls @ 100 mls/hr IVPB Q8H-IV [facility]; Protocol Last Admin: 10/14/18 02:30 Dose: 100 mls/hr Lactulose (Cephulac (Oral Use)) 10 gm GT DAILY [facility] Last Admin: 10/13/18 11:12 Dose: 10 gm Metoclopramide HCl (Reglan Oral Solution -) 5 mg GT DAILY [facility] Last Admin: 10/13/18 11:15 Dose: 5 mg Non-Formulary Medication (Olopatadine Hcl [Olopatadine Hcl]) 2.5 ml OP DAILY [facility] Potassium Chloride (Potassium Chloride Oral Liquid) 40 meq PO BID [facility] Last Admin: 10/13/18 23:03 Dose: 40 meq - Objective Vital Signs: Vital Signs Temperature 98.9 F 10/14/18 09:23 Pulse Rate 116 H 10/14/18 09:23 Respiratory Rate 22 H 10/14/18 09:23 Blood Pressure 169/104 H 10/14/18 09:23 O2 Sat by Pulse Oximetry (%) 96 10/14/18 06:38 Constitutional: Yes: Other Cardiovascular: Yes: Regular Rate and Rhythm Respiratory: Yes: On BiPap Gastrointestinal: Yes: Normal Bowel Sounds, Soft, Other (peg) Musculoskeletal: Yes: WNL Extremities: Yes: Other Neurological: Yes: Other Labs: CBC, BMP 10/14/18 06:26 10/14/18 06:26 INR, PTT INR 1.03 (0.83-1.09) 10/09/18 12:10 Assessment/Plan Problem List - Problems (1) COPD exacerbation Code(s): J44.1 - CHRONIC OBSTRUCTIVE PULMONARY DISEASE W (ACUTE) EXACERBATION (2) Anoxic brain injury Code(s): G93.1 - ANOXIC BRAIN DAMAGE, NOT ELSEWHERE CLASSIFIED (3) Aspiration pneumonia Code(s): J69.0 - PNEUMONITIS DUE TO INHALATION OF FOOD AND VOMIT (4) Cerebral palsy Code(s): G80.9 - CEREBRAL PALSY, UNSPECIFIED (5) Feeding by G-tube Code(s): Z93.1 - GASTROSTOMY STATUS (6) Functional quadriplegia Code(s): R53.2 - FUNCTIONAL QUADRIPLEGIA (7) HLD (hyperlipidemia) Code(s): E78.5 - HYPERLIPIDEMIA, UNSPECIFIED (8) HTN (hypertension) Code(s): I10 - ESSENTIAL (PRIMARY) HYPERTENSION (9) Hypoxia Code(s): R09.02 - HYPOXEMIA (10) Seizure disorder Code(s): G40.909 - EPILEPSY, UNSP, NOT INTRACTABLE, WITHOUT STATUS EPILEPTICUS plan will stop abx and monitor nutrition
--- NOTE | 2018-10-14 10:49 | PN ---
Progress Note, Physician History of Present Illness: She is arousable and comfortable on normal bipap setting at IPAP 15, EPAP 5, O2 at 40% with rate 14. Hypertensive and tachycardic off metoprolol. - Current Medication List Current Medications: Active Medications Amlodipine Besylate (Norvasc -) 5 mg PO DAILY [facility] Last Admin: 10/13/18 11:13 Dose: 5 mg Arformoterol Tartrate (Brovana (Restricted To Pulmonology/Resp) -) 1 amp NEB RBID [facility] Last Admin: 10/14/18 07:30 Dose: 1 amp Ascorbic Acid (Vitamin C -) 500 mg GT BID [facility] Last Admin: 10/13/18 23:04 Dose: 500 mg Atorvastatin Calcium (Lipitor -) 20 mg GT HS [facility] Last Admin: 10/13/18 23:03 Dose: 20 mg Bacitracin (Bacitracin -) 1 applic TP TID [facility] Last Admin: 10/13/18 23:02 Dose: 1 applic Budesonide (Pulmicort 0.5 Mg Nebulizer -) 1 amp NEB RBID [facility] Last Admin: 10/14/18 07:30 Dose: 1 amp Calcium Carbonate (Calcium Carb Oral Suspension -) 500 mg GT BID [facility] Last Admin: 10/13/18 23:03 Dose: 500 mg Heparin Sodium (Porcine) (Heparin -) 5,000 unit SQ BID [facility] Last Admin: 10/13/18 23:02 Dose: 5,000 unit Lactulose (Cephulac (Oral Use)) 10 gm GT DAILY [facility] Last Admin: 10/13/18 11:12 Dose: 10 gm Metoclopramide HCl (Reglan Oral Solution -) 5 mg GT DAILY [facility] Last Admin: 10/13/18 11:15 Dose: 5 mg Non-Formulary Medication (Olopatadine Hcl [Olopatadine Hcl]) 2.5 ml OP DAILY [facility] Potassium Chloride (Potassium Chloride Oral Liquid) 40 meq PO BID [facility] Last Admin: 10/13/18 23:03 Dose: 40 meq - Objective Vital Signs: Vital Signs Temperature 98.9 F 10/14/18 09:23 Pulse Rate 116 H 10/14/18 09:23 Respiratory Rate 22 H 10/14/18 09:23 Blood Pressure 169/104 H 10/14/18 09:23 O2 Sat by Pulse Oximetry (%) 96 10/14/18 06:38 Constitutional: Yes: No Distress, Calm Neck: Yes: Supple Cardiovascular: Yes: Tachycardia Respiratory: Yes: Regular, Diminished, On BiPap Gastrointestinal: Yes: Normal Bowel Sounds, Soft Extremities: Yes: Other (Contracted) Edema: No Labs: CBC, BMP 10/14/18 06:26 10/14/18 06:26 INR, PTT INR 1.03 (0.83-1.09) 10/09/18 12:10 - ....Imaging EKG: Report Reviewed (Tele: ST) Assessment/Plan Problems (1) COPD exacerbation Code(s): J44.1 - CHRONIC OBSTRUCTIVE PULMONARY DISEASE W (ACUTE) EXACERBATION (2) Anoxic brain injury Code(s): G93.1 - ANOXIC BRAIN DAMAGE, NOT ELSEWHERE CLASSIFIED (3) Aspiration pneumonia Code(s): J69.0 - PNEUMONITIS DUE TO INHALATION OF FOOD AND VOMIT (4) Cerebral palsy Code(s): G80.9 - CEREBRAL PALSY, UNSPECIFIED (5) Feeding by G-tube Code(s): Z93.1 - GASTROSTOMY STATUS (6) Functional quadriplegia Code(s): R53.2 - FUNCTIONAL QUADRIPLEGIA (7) HLD (hyperlipidemia) Code(s): E78.5 - HYPERLIPIDEMIA, UNSPECIFIED (8) HTN (hypertension) Code(s): I10 - ESSENTIAL (PRIMARY) HYPERTENSION (9) Hypoxia Code(s): R09.02 - HYPOXEMIA (10) Seizure disorder Code(s): G40.909 - EPILEPSY, UNSP, NOT INTRACTABLE, WITHOUT STATUS EPILEPTICUS PLAN: Monitor off ABX per ID Wean FIO2 to keep SpO2 >90% Aspiration precautions BD TX Monitor off systemic steroids VTE prophylaxis, enteral feeds, replete K NIPPV support for increased WOB Continue Norvasc 5 qd, Lipitor 20 qhs, resume Lopressor 25 bid
[2018-10-14 10:52] LABS: ARTERIAL BLD GAS O2 SATURATION 97.5 % (95-98); ARTERIAL BLOOD GAS BASE EXCESS 10.9 meq/l (-2-2); ARTERIAL BLOOD GAS PCO2 59.8 mmHg (35-45); ARTERIAL BLOOD GAS PO2 98.3 mmHg (80-105); ARTERIAL BLOOD GAS pH 7.41 (7.35-7.45)
[2018-10-14 10:53] LABS: ALLENS TEST POSITIVE
[2018-10-14] MEDS ORDERED: PT OWN MED DRAWER 7, Y5N ONE ×3 (12:06→22:41)
[2018-10-14] MEDS: METOPROLOL TARTRATE 25 MG TABLET (FP) GT SCH ×2 (14:21→22:46)
--- NOTE | 2018-10-14 18:16 | PN ---
Progress Note, Physician History of Present Illness: on bipap - Current Medication List Current Medications: Active Medications Amlodipine Besylate (Norvasc -) 5 mg PO DAILY [facility] Last Admin: 10/14/18 10:11 Dose: 5 mg Arformoterol Tartrate (Brovana (Restricted To Pulmonology/Resp) -) 1 amp NEB RBID [facility] Last Admin: 10/14/18 07:30 Dose: 1 amp Ascorbic Acid (Vitamin C -) 500 mg GT BID [facility] Last Admin: 10/14/18 10:13 Dose: 500 mg Atorvastatin Calcium (Lipitor -) 20 mg GT HS [facility] Last Admin: 10/13/18 23:03 Dose: 20 mg Bacitracin (Bacitracin -) 1 applic TP TID [facility] Last Admin: 10/14/18 14:17 Dose: 1 applic Budesonide (Pulmicort 0.5 Mg Nebulizer -) 1 amp NEB RBID [facility] Last Admin: 10/14/18 07:30 Dose: 1 amp Calcium Carbonate (Calcium Carb Oral Suspension -) 500 mg GT BID [facility] Last Admin: 10/14/18 10:08 Dose: 500 mg Heparin Sodium (Porcine) (Heparin -) 5,000 unit SQ BID [facility] Last Admin: 10/14/18 10:11 Dose: 5,000 unit Lactulose (Cephulac (Oral Use)) 10 gm GT DAILY [facility] Last Admin: 10/14/18 10:10 Dose: 10 gm Metoclopramide HCl (Reglan Oral Solution -) 5 mg GT DAILY [facility] Last Admin: 10/14/18 10:12 Dose: 5 mg Metoprolol Tartrate (Lopressor -) 25 mg GT BID [facility] Last Admin: 10/14/18 14:21 Dose: 25 mg Non-Formulary Medication (Olopatadine Hcl [Olopatadine Hcl]) 2.5 ml OP DAILY [facility] Potassium Chloride (Potassium Chloride Oral Liquid) 40 meq PO BID [facility] Last Admin: 10/14/18 10:12 Dose: 40 meq - Objective Vital Signs: Vital Signs Temperature 99.1 F 10/14/18 18:14 Pulse Rate 99 H 10/14/18 18:14 Respiratory Rate 22 H 10/14/18 18:14 Blood Pressure 155/100 10/14/18 18:14 O2 Sat by Pulse Oximetry (%) 96 10/14/18 06:38 HENT: Yes: Atraumatic Neck: Yes: Other (neck collar) Cardiovascular: Yes: Regular Rate and Rhythm Respiratory: Yes: Rhonchi Gastrointestinal: Yes: Normal Bowel Sounds, Other (peg in place) Extremities: Yes: Other (contracted) Edema: No Neurological: Yes: Other (awake) Labs: CBC, BMP 10/14/18 06:26 10/14/18 06:26 INR, PTT INR 1.03 (0.83-1.09) 10/09/18 12:10 Problem List - Problems (1) COPD exacerbation Assessment/Plan: on bipap duo nebs prn Code(s): J44.1 - CHRONIC OBSTRUCTIVE PULMONARY DISEASE W (ACUTE) EXACERBATION (2) Anoxic brain injury Code(s): G93.1 - ANOXIC BRAIN DAMAGE, NOT ELSEWHERE CLASSIFIED (3) Aspiration pneumonia Assessment/Plan: off of abx ...observe aspiration precautins Code(s): J69.0 - PNEUMONITIS DUE TO INHALATION OF FOOD AND VOMIT (4) Cerebral palsy Code(s): G80.9 - CEREBRAL PALSY, UNSPECIFIED (5) Feeding by G-tube Assessment/Plan: will start tube feeds Code(s): Z93.1 - GASTROSTOMY STATUS (6) Functional quadriplegia Code(s): R53.2 - FUNCTIONAL QUADRIPLEGIA (7) HLD (hyperlipidemia) Code(s): E78.5 - HYPERLIPIDEMIA, UNSPECIFIED Qualifiers: Hyperlipidemia type: pure hypercholesterolemia Qualified Code(s): E78.00 - Pure hypercholesterolemia, unspecified; E78.0 - Pure hypercholesterolemia (8) HTN (hypertension) Assessment/Plan: on meds monitor...bp stabilizing now Code(s): I10 - ESSENTIAL (PRIMARY) HYPERTENSION Qualifiers: Hypertension type: essential hypertension Qualified Code(s): I10 - Essential (primary) hypertension (9) Hypoxia Code(s): R09.02 - HYPOXEMIA (10) Seizure disorder Assessment/Plan: on meds stable Code(s): G40.909 - EPILEPSY, UNSP, NOT INTRACTABLE, WITHOUT STATUS EPILEPTICUS
[2018-10-14] MEDS: ATORVASTATIN CA 20 MG TABLET (FP) GT SCH (22:46)
[2018-10-15] MEDS: BACITRACIN 15 GM TUBE TOPICAL OINTMENT TP SCH ×3 (06:23→22:28)
[2018-10-15] MEDS: ARFORMOTEROL TARTRATE 15 MCG/2 ML VIAL NEB SCH ×2 (08:38→20:15)
[2018-10-15] MEDS: BUDESONIDE 0.5 MG/2 ML INH SUSP VIAL NEB SCH ×2 (08:38→21:40)
--- NOTE | 2018-10-15 10:10 | PN ---
Progress Note, Physician History of Present Illness: pulmonary poorly responsive on bipap,-resp distress - Current Medication List Current Medications: Active Medications Amlodipine Besylate (Norvasc -) 5 mg PO DAILY [facility] Last Admin: 10/14/18 10:11 Dose: 5 mg Arformoterol Tartrate (Brovana (Restricted To Pulmonology/Resp) -) 1 amp NEB RBID [facility] Last Admin: 10/15/18 08:38 Dose: 1 amp Ascorbic Acid (Vitamin C -) 500 mg GT BID [facility] Last Admin: 10/14/18 22:46 Dose: 500 mg Atorvastatin Calcium (Lipitor -) 20 mg GT HS [facility] Last Admin: 10/14/18 22:46 Dose: 20 mg Bacitracin (Bacitracin -) 1 applic TP TID [facility] Last Admin: 10/15/18 06:23 Dose: 1 applic Budesonide (Pulmicort 0.5 Mg Nebulizer -) 1 amp NEB RBID [facility] Last Admin: 10/15/18 08:38 Dose: 1 amp Calcium Carbonate (Calcium Carb Oral Suspension -) 500 mg GT BID [facility] Last Admin: 10/14/18 22:46 Dose: 500 mg Heparin Sodium (Porcine) (Heparin -) 5,000 unit SQ BID [facility] Last Admin: 10/14/18 22:44 Dose: 5,000 unit Lactulose (Cephulac (Oral Use)) 10 gm GT DAILY [facility] Last Admin: 10/14/18 10:10 Dose: 10 gm Metoclopramide HCl (Reglan Oral Solution -) 5 mg GT DAILY [facility] Last Admin: 10/14/18 10:12 Dose: 5 mg Metoprolol Tartrate (Lopressor -) 25 mg GT BID [facility] Last Admin: 10/14/18 22:46 Dose: 25 mg Non-Formulary Medication (Olopatadine Hcl [Olopatadine Hcl]) 2.5 ml OP DAILY [facility] Potassium Chloride (Potassium Chloride Oral Liquid) 40 meq PO BID [facility] Last Admin: 10/14/18 22:45 Dose: 40 meq - Objective Vital Signs: Vital Signs Temperature 98.4 F 10/15/18 06:00 Pulse Rate 96 H 10/15/18 06:00 Respiratory Rate 20 10/15/18 06:00 Blood Pressure 167/111 H 10/15/18 06:00 O2 Sat by Pulse Oximetry (%) 97 10/14/18 22:00 Constitutional: Yes: Well Nourished, Other (poorly responsive) Eyes: Yes: WNL HENT: Yes: WNL Neck: Yes: Supple Cardiovascular: Yes: Regular Rate and Rhythm, S1, S2 Respiratory: Yes: Diminished, On BiPap Gastrointestinal: Yes: Normal Bowel Sounds, Soft Extremities: Yes: Other (contracted) Edema: No Labs: Laboratory Tests 10/14/18 10:25 ABG pH 7.41 ABG pCO2 at Pt Temp 59.8 H ABG pO2 at Pt Temp 98.3 ABG HCO3 37.5 H ABG O2 Sat (Measured) 97.5 Oxygen Flow Rate 40% Vent Rate 14 Pressure Support Vent Ipap 12/epap 5 Problem List - Problems (1) COPD exacerbation Code(s): J44.1 - CHRONIC OBSTRUCTIVE PULMONARY DISEASE W (ACUTE) EXACERBATION (2) Scoliosis deformity of spine Code(s): M41.9 - SCOLIOSIS, UNSPECIFIED (3) Anoxic brain injury Code(s): G93.1 - ANOXIC BRAIN DAMAGE, NOT ELSEWHERE CLASSIFIED (4) Aspiration pneumonia Code(s): J69.0 - PNEUMONITIS DUE TO INHALATION OF FOOD AND VOMIT (5) Cerebral palsy Code(s): G80.9 - CEREBRAL PALSY, UNSPECIFIED (6) Functional quadriplegia Code(s): R53.2 - FUNCTIONAL QUADRIPLEGIA (7) Hypoxia Code(s): R09.02 - HYPOXEMIA (8) Seizure disorder Code(s): G40.909 - EPILEPSY, UNSP, NOT INTRACTABLE, WITHOUT STATUS EPILEPTICUS (9) Acute on chronic respiratory failure with hypoxia and hypercapnia Code(s): J96.21 - ACUTE AND CHRONIC RESPIRATORY FAILURE WITH HYPOXIA; J96.22 - ACUTE AND CHRONIC RESPIRATORY FAILURE WITH HYPERCAPNIA Assessment/Plan A/P Acute COPD Exacerbation improving r/o Aspiration Anoxic Brain Injury Seizure Disorder HTN Hyperlipidemia - antibiotics - O2 to keep SpO2 >90% - aspiration precautions - BiPAP to assist in work of breathing - attempt ventimask as tolerated - DVT prophylaxis DR SUAREZ
[2018-10-15] MEDS: LACTULOSE 20 GM/30 ML UDC (FOR ORAL USE ONLY) GT SCH (11:30)
[2018-10-15] MEDS: POTASSIUM CHLORIDE ORAL LIQUID 20 MEQ/15 ML PO SCH ×2 (11:30→22:37)
[2018-10-15] MEDS: METOPROLOL TARTRATE 25 MG TABLET (FP) GT SCH ×2 (11:31→22:29)
[2018-10-15] MEDS: ASCORBIC ACID 500 MG TABLET (FP) GT SCH ×2 (11:31→22:29)
[2018-10-15] MEDS: amLODIPine BESYLATE 5 MG TABLET (FP) PO SCH (11:31)
[2018-10-15] MEDS: HEPARIN NA (PORCINE) 5,000 UNITS/ML 1ML VIAL SQ SCH ×2 (11:31→22:28)
[2018-10-15] MEDS ORDERED: PT OWN MED DRAWER 7, Y5N ONE ×2 (11:33→12:14)
[2018-10-15] MEDS: METOCLOPRAMIDE HCL 5 MG/5 ML UNIT DOSE CUP GT SCH (11:34)
[2018-10-15] MEDS: CALCIUM CARBONATE SUSPENSION - 500 MG/5 ML ML GT SCH (11:43)
--- NOTE | 2018-10-15 12:19 | PN ---
Progress Note, Physician Chief Complaint: Events noted Quadraplegic History of Present Illness: Patient was seen and examined. Chart was reviewed On NIPPV - Current Medication List Current Medications: Active Medications Amlodipine Besylate (Norvasc -) 5 mg PO DAILY [facility] Last Admin: 10/15/18 11:31 Dose: 5 mg Arformoterol Tartrate (Brovana (Restricted To Pulmonology/Resp) -) 1 amp NEB RBID [facility] Last Admin: 10/15/18 08:38 Dose: 1 amp Ascorbic Acid (Vitamin C -) 500 mg GT BID [facility] Last Admin: 10/15/18 11:31 Dose: 500 mg Atorvastatin Calcium (Lipitor -) 20 mg GT HS [facility] Last Admin: 10/14/18 22:46 Dose: 20 mg Bacitracin (Bacitracin -) 1 applic TP TID [facility] Last Admin: 10/15/18 06:23 Dose: 1 applic Budesonide (Pulmicort 0.5 Mg Nebulizer -) 1 amp NEB RBID [facility] Last Admin: 10/15/18 08:38 Dose: 1 amp Calcium Carbonate (Calcium Carb Oral Suspension -) 500 mg GT BID [facility] Last Admin: 10/15/18 11:43 Dose: 500 mg Heparin Sodium (Porcine) (Heparin -) 5,000 unit SQ BID [facility] Last Admin: 10/15/18 11:31 Dose: 5,000 unit Lactulose (Cephulac (Oral Use)) 10 gm GT DAILY [facility] Last Admin: 10/15/18 11:30 Dose: 10 gm Metoclopramide HCl (Reglan Oral Solution -) 5 mg GT DAILY [facility] Last Admin: 10/15/18 11:34 Dose: 5 mg Metoprolol Tartrate (Lopressor -) 25 mg GT BID [facility] Last Admin: 10/15/18 11:31 Dose: 25 mg Non-Formulary Medication (Olopatadine Hcl [Olopatadine Hcl]) 2.5 ml OP DAILY [facility] Potassium Chloride (Potassium Chloride Oral Liquid) 40 meq PO BID [facility] Last Admin: 10/15/18 11:30 Dose: 40 meq - Objective Vital Signs: Vital Signs Temperature 98.4 F 10/15/18 06:00 Pulse Rate 96 H 10/15/18 06:00 Respiratory Rate 20 10/15/18 06:00 Blood Pressure 167/111 H 10/15/18 06:00 O2 Sat by Pulse Oximetry (%) 97 10/14/18 22:00 Cardiovascular: Yes: Regular Rate and Rhythm, Tachycardia, S1, S2 Respiratory: Yes: Diminished Gastrointestinal: Yes: Normal Bowel Sounds, Soft. No: Tenderness Edema: No ( (Contracted)) Labs: CBC, BMP 10/14/18 06:26 10/14/18 06:26 INR, PTT INR 1.03 (0.83-1.09) 10/09/18 12:10 Problem List - Problems (1) COPD exacerbation Code(s): J44.1 - CHRONIC OBSTRUCTIVE PULMONARY DISEASE W (ACUTE) EXACERBATION (2) PEG (percutaneous endoscopic gastrostomy) status Code(s): Z93.1 - GASTROSTOMY STATUS (3) Acute on chronic respiratory failure with hypoxia and hypercapnia Code(s): J96.21 - ACUTE AND CHRONIC RESPIRATORY FAILURE WITH HYPOXIA; J96.22 - ACUTE AND CHRONIC RESPIRATORY FAILURE WITH HYPERCAPNIA (4) Anoxic brain injury Code(s): G93.1 - ANOXIC BRAIN DAMAGE, NOT ELSEWHERE CLASSIFIED (5) Aspiration pneumonia Code(s): J69.0 - PNEUMONITIS DUE TO INHALATION OF FOOD AND VOMIT (6) Cerebral palsy Code(s): G80.9 - CEREBRAL PALSY, UNSPECIFIED (7) HLD (hyperlipidemia) Code(s): E78.5 - HYPERLIPIDEMIA, UNSPECIFIED Qualifiers: Hyperlipidemia type: pure hypercholesterolemia Qualified Code(s): E78.00 - Pure hypercholesterolemia, unspecified; E78.0 - Pure hypercholesterolemia (8) HTN (hypertension) Code(s): I10 - ESSENTIAL (PRIMARY) HYPERTENSION Qualifiers: Hypertension type: essential hypertension Qualified Code(s): I10 - Essential (primary) hypertension (9) Seizure disorder Code(s): G40.909 - EPILEPSY, UNSP, NOT INTRACTABLE, WITHOUT STATUS EPILEPTICUS Assessment/Plan 1. COPD exacerbation 2. 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 Aspiration pneumonia 4. HTN 5. Hyperlipidemia 6. Seizure PLAN: 1. O2 and NIPPV 2. Aspiration precautions 3. Respiratory treatment 4. DVT prophylaxis 5. Enteral feeds 6. Continue Norvasc 5 mg QD, Lipitor 20 mg QHS and Lopressor 25 mg BID via G tube 7. K supplement Landen Harding MD
--- NOTE | 2018-10-15 13:31 | PN ---
Progress Note, Physician History of Present Illness: looks stable breathing better - Current Medication List Current Medications: Active Medications Amlodipine Besylate (Norvasc -) 5 mg PO DAILY [facility] Last Admin: 10/15/18 11:31 Dose: 5 mg Arformoterol Tartrate (Brovana (Restricted To Pulmonology/Resp) -) 1 amp NEB RBID [facility] Last Admin: 10/15/18 08:38 Dose: 1 amp Ascorbic Acid (Vitamin C -) 500 mg GT BID [facility] Last Admin: 10/15/18 11:31 Dose: 500 mg Atorvastatin Calcium (Lipitor -) 20 mg GT HS [facility] Last Admin: 10/14/18 22:46 Dose: 20 mg Bacitracin (Bacitracin -) 1 applic TP TID [facility] Last Admin: 10/15/18 06:23 Dose: 1 applic Budesonide (Pulmicort 0.5 Mg Nebulizer -) 1 amp NEB RBID [facility] Last Admin: 10/15/18 08:38 Dose: 1 amp Calcium Carbonate (Calcium Carb Oral Suspension -) 500 mg GT BID [facility] Last Admin: 10/15/18 11:43 Dose: 500 mg Heparin Sodium (Porcine) (Heparin -) 5,000 unit SQ BID [facility] Last Admin: 10/15/18 11:31 Dose: 5,000 unit Lactulose (Cephulac (Oral Use)) 10 gm GT DAILY [facility] Last Admin: 10/15/18 11:30 Dose: 10 gm Metoclopramide HCl (Reglan Oral Solution -) 5 mg GT DAILY [facility] Last Admin: 10/15/18 11:34 Dose: 5 mg Metoprolol Tartrate (Lopressor -) 25 mg GT BID [facility] Last Admin: 10/15/18 11:31 Dose: 25 mg Non-Formulary Medication (Olopatadine Hcl [Olopatadine Hcl]) 2.5 ml OP DAILY [facility] Potassium Chloride (Potassium Chloride Oral Liquid) 40 meq PO BID [facility] Last Admin: 10/15/18 11:30 Dose: 40 meq - Objective Vital Signs: Vital Signs Temperature 99.5 F 10/15/18 12:47 Pulse Rate 83 10/15/18 12:47 Respiratory Rate 20 10/15/18 12:47 Blood Pressure 163/102 H 10/15/18 12:47 O2 Sat by Pulse Oximetry (%) 98 10/15/18 10:00 Constitutional: Yes: No Distress, Calm Cardiovascular: Yes: S1, S2 Respiratory: Yes: On BiPap, On Nasal O2 Gastrointestinal: Yes: Normal Bowel Sounds, Soft, Other (peg in place) Musculoskeletal: Yes: WNL Extremities: Yes: Other (contracted) Neurological: Yes: Other Psychiatric: Yes: Other Labs: CBC, BMP 10/14/18 06:26 10/14/18 06:26 INR, PTT INR 1.03 (0.83-1.09) 10/09/18 12:10 Assessment/Plan Problem List - Problems (1) COPD exacerbation Code(s): J44.1 - CHRONIC OBSTRUCTIVE PULMONARY DISEASE W (ACUTE) EXACERBATION (2) Anoxic brain injury Code(s): G93.1 - ANOXIC BRAIN DAMAGE, NOT ELSEWHERE CLASSIFIED (3) Aspiration pneumonia Code(s): J69.0 - PNEUMONITIS DUE TO INHALATION OF FOOD AND VOMIT (4) Cerebral palsy Code(s): G80.9 - CEREBRAL PALSY, UNSPECIFIED (5) Feeding by G-tube Code(s): Z93.1 - GASTROSTOMY STATUS (6) Functional quadriplegia Code(s): R53.2 - FUNCTIONAL QUADRIPLEGIA (7) HLD (hyperlipidemia) Code(s): E78.5 - HYPERLIPIDEMIA, UNSPECIFIED (8) HTN (hypertension) Code(s): I10 - ESSENTIAL (PRIMARY) HYPERTENSION (9) Hypoxia Code(s): R09.02 - HYPOXEMIA (10) Seizure disorder Code(s): G40.909 - EPILEPSY, UNSP, NOT INTRACTABLE, WITHOUT STATUS EPILEPTICUS plan continue current mgmt resp support rest as per the team
--- NOTE | 2018-10-15 16:57 | PN ---
Progress Note, Physician History of Present Illness: on bipap - Current Medication List Current Medications: Active Medications Amlodipine Besylate (Norvasc -) 5 mg PO DAILY [facility] Last Admin: 10/15/18 11:31 Dose: 5 mg Arformoterol Tartrate (Brovana (Restricted To Pulmonology/Resp) -) 1 amp NEB RBID [facility] Last Admin: 10/15/18 08:38 Dose: 1 amp Ascorbic Acid (Vitamin C -) 500 mg GT BID [facility] Last Admin: 10/15/18 11:31 Dose: 500 mg Atorvastatin Calcium (Lipitor -) 20 mg GT HS [facility] Last Admin: 10/14/18 22:46 Dose: 20 mg Bacitracin (Bacitracin -) 1 applic TP TID [facility] Last Admin: 10/15/18 06:23 Dose: 1 applic Budesonide (Pulmicort 0.5 Mg Nebulizer -) 1 amp NEB RBID [facility] Last Admin: 10/15/18 08:38 Dose: 1 amp Calcium Carbonate (Calcium Carb Oral Suspension -) 500 mg GT BID [facility] Last Admin: 10/15/18 11:43 Dose: 500 mg Heparin Sodium (Porcine) (Heparin -) 5,000 unit SQ BID [facility] Last Admin: 10/15/18 11:31 Dose: 5,000 unit Lactulose (Cephulac (Oral Use)) 10 gm GT DAILY [facility] Last Admin: 10/15/18 11:30 Dose: 10 gm Metoclopramide HCl (Reglan Oral Solution -) 5 mg GT DAILY [facility] Last Admin: 10/15/18 11:34 Dose: 5 mg Metoprolol Tartrate (Lopressor -) 25 mg GT BID [facility] Last Admin: 10/15/18 11:31 Dose: 25 mg Non-Formulary Medication (Olopatadine Hcl [Olopatadine Hcl]) 2.5 ml OP DAILY [facility] Potassium Chloride (Potassium Chloride Oral Liquid) 40 meq PO BID [facility] Last Admin: 10/15/18 11:30 Dose: 40 meq - Objective Vital Signs: Vital Signs Temperature 97.6 F 10/15/18 14:00 Pulse Rate 103 H 10/15/18 14:00 Respiratory Rate 22 H 10/15/18 14:00 Blood Pressure 177/100 H 10/15/18 14:00 O2 Sat by Pulse Oximetry (%) 98 10/15/18 10:00 Constitutional: Yes: No Distress HENT: Yes: Atraumatic Neck: Yes: Other (neck collar) Cardiovascular: Yes: Regular Rate and Rhythm Respiratory: Yes: Rhonchi Gastrointestinal: Yes: Normal Bowel Sounds Extremities: Yes: Other (contracted) Labs: CBC, BMP 10/14/18 06:26 10/14/18 06:26 INR, PTT INR 1.03 (0.83-1.09) 10/09/18 12:10 Problem List - Problems (1) COPD exacerbation Assessment/Plan: on venti mask duo nebs prn Code(s): J44.1 - CHRONIC OBSTRUCTIVE PULMONARY DISEASE W (ACUTE) EXACERBATION (2) Anoxic brain injury Code(s): G93.1 - ANOXIC BRAIN DAMAGE, NOT ELSEWHERE CLASSIFIED (3) Aspiration pneumonia Assessment/Plan: off of abx now aspiration precautins Code(s): J69.0 - PNEUMONITIS DUE TO INHALATION OF FOOD AND VOMIT (4) Cerebral palsy Code(s): G80.9 - CEREBRAL PALSY, UNSPECIFIED (5) Feeding by G-tube Assessment/Plan: on tube feeds Code(s): Z93.1 - GASTROSTOMY STATUS (6) Functional quadriplegia Code(s): R53.2 - FUNCTIONAL QUADRIPLEGIA (7) HLD (hyperlipidemia) Code(s): E78.5 - HYPERLIPIDEMIA, UNSPECIFIED Qualifiers: Hyperlipidemia type: pure hypercholesterolemia Qualified Code(s): E78.00 - Pure hypercholesterolemia, unspecified; E78.0 - Pure hypercholesterolemia (8) HTN (hypertension) Assessment/Plan: on meds monitor...bp stabilizing now Code(s): I10 - ESSENTIAL (PRIMARY) HYPERTENSION Qualifiers: Hypertension type: essential hypertension Qualified Code(s): I10 - Essential (primary) hypertension (9) Hypoxia Code(s): R09.02 - HYPOXEMIA (10) Seizure disorder Assessment/Plan: on meds stable Code(s): G40.909 - EPILEPSY, UNSP, NOT INTRACTABLE, WITHOUT STATUS EPILEPTICUS
--- NOTE | 2018-10-15 19:21 | DS ---
Physical Examination Vital Signs: Vital Signs Temperature 98.3 F 10/15/18 18:00 Pulse Rate 107 H 10/15/18 18:00 Respiratory Rate 22 H 10/15/18 18:00 Blood Pressure 171/110 H 10/15/18 18:00 O2 Sat by Pulse Oximetry (%) 98 10/15/18 10:00 Labs: CBC, BMP 10/14/18 06:26 10/14/18 06:26 Discharge Summary Reason For Visit: ACUTE EXACERBATION OF CHRONIC OBSTRUCTIVE PULMONAR Current Active Problems COPD exacerbation (Acute) Malfunction of percutaneous endoscopic gastrostomy (PEG) tube (Acute) PEG (percutaneous endoscopic gastrostomy) status (Acute) Scoliosis deformity of spine (Chronic) - Instructions - Home Medications Comprehensive Discharge Medication List: Ambulatory Orders Albuterol 2.5/Ipratropium 0.5 [Duoneb -] 1 neb IH QID 10/09/18 Alendronate Sodium 70 mg GT DAILY 10/09/18 Amlodipine Besylate [Norvasc -] 2.5 mg PO DAILY 10/09/18 Arformoterol Tartrate [Brovana] 15 mcg IH BID 10/09/18 Ascorbic Acid 500 mg GT BID 10/09/18 Bacitracin - [Bacitracin Topical Ointment -] 1 applic TP TID 10/09/18 Budesonide 1 mg IH BID 10/09/18 Calcium (Oyster Shell) [Os-Jamar 500MG -] 500 mg NR BID 10/09/18 Clotrimazole/Betamethasone Dip [Clotrimazole-Betamethasone Crm] 45 gm TP BID 09/20 Lactobacillus Acidophilus [Acidophilus] 1 each PO BID 10/09/18 Lactulose 10 gm GT DAILY 10/09/18 Metoclopramide HCl 5 mg PO DAILY 10/09/18 Metoprolol Tartrate 25 mg PO BID 10/09/18 Multivitamin/Iron/Folic Acid [Centrum Adults Tablet] 1 each GT DAILY 10/09/18 Olopatadine HCl 2.5 ml OP DAILY 10/09/18 Protein Supplement [Promod] 30 ml GT DAILY 10/09/18 Silver Sulfadiazine 1% Top Cr [Silvadene -] 1 applic TP DAILY 10/09/18 Simvastatin 40 mg GT DAILY 10/09/18 Zinc Oxide 20% Topical Oint 60 gm TD ASDIR 10/09/[address] philly neal who accepted the patient
[2018-10-15] MEDS: ATORVASTATIN CA 20 MG TABLET (FP) GT SCH (22:29)
[2018-10-16] MEDS: CALCIUM CARBONATE SUSPENSION - 500 MG/5 ML ML GT SCH ×3 (01:38→23:02)
[2018-10-16] MEDS: BACITRACIN 15 GM TUBE TOPICAL OINTMENT TP SCH ×3 (06:09→23:03)
[2018-10-16] MEDS: ARFORMOTEROL TARTRATE 15 MCG/2 ML VIAL NEB SCH ×2 (07:44→21:06)
[2018-10-16] MEDS: BUDESONIDE 0.5 MG/2 ML INH SUSP VIAL NEB SCH ×2 (07:50→21:06)
--- NOTE | 2018-10-16 09:15 | PN ---
Progress Note, Physician History of Present Illness: She is arousable and comfortable weaned to VM. - Current Medication List Current Medications: Active Medications Amlodipine Besylate (Norvasc -) 5 mg PO DAILY [facility] Last Admin: 10/15/18 11:31 Dose: 5 mg Arformoterol Tartrate (Brovana (Restricted To Pulmonology/Resp) -) 1 amp NEB RBID [facility] Last Admin: 10/16/18 07:44 Dose: 1 amp Ascorbic Acid (Vitamin C -) 500 mg GT BID [facility] Last Admin: 10/15/18 22:29 Dose: 500 mg Atorvastatin Calcium (Lipitor -) 20 mg GT HS [facility] Last Admin: 10/15/18 22:29 Dose: 20 mg Bacitracin (Bacitracin -) 1 applic TP TID [facility] Last Admin: 10/16/18 06:09 Dose: 1 applic Budesonide (Pulmicort 0.5 Mg Nebulizer -) 1 amp NEB RBID [facility] Last Admin: 10/15/18 21:40 Dose: Not Given Calcium Carbonate (Calcium Carb Oral Suspension -) 500 mg GT BID [facility] Last Admin: 10/16/18 01:38 Dose: 500 mg Heparin Sodium (Porcine) (Heparin -) 5,000 unit SQ BID [facility] Last Admin: 10/15/18 22:28 Dose: 5,000 unit Lactulose (Cephulac (Oral Use)) 10 gm GT DAILY [facility] Last Admin: 10/15/18 11:30 Dose: 10 gm Metoclopramide HCl (Reglan Oral Solution -) 5 mg GT DAILY [facility] Last Admin: 10/15/18 11:34 Dose: 5 mg Metoprolol Tartrate (Lopressor -) 25 mg GT BID [facility] Last Admin: 10/15/18 22:29 Dose: 25 mg Potassium Chloride (Potassium Chloride Oral Liquid) 40 meq PO BID [facility] Last Admin: 10/15/18 22:37 Dose: 40 meq - Objective Vital Signs: Vital Signs Temperature 98.3 F 10/16/18 06:00 Pulse Rate 86 10/16/18 06:00 Respiratory Rate 20 10/16/18 06:00 Blood Pressure 188/89 H 10/16/18 06:00 O2 Sat by Pulse Oximetry (%) 94 L 10/16/18 07:43 Constitutional: Yes: No Distress, Calm Neck: Yes: Supple Cardiovascular: Yes: Tachycardia Respiratory: Yes: Regular, Diminished, On Venti-Mask Gastrointestinal: Yes: Soft, Hypoactive Bowel Sounds Extremities: Yes: Other (Contracted) Edema: No Labs: CBC, BMP 10/14/18 06:26 10/14/18 06:26 INR, PTT INR 1.03 (0.83-1.09) 10/09/18 12:10 - ....Imaging EKG: Report Reviewed (Tele: ST) Assessment/Plan Problems (1) COPD exacerbation Code(s): J44.1 - CHRONIC OBSTRUCTIVE PULMONARY DISEASE W (ACUTE) EXACERBATION (2) Anoxic brain injury Code(s): G93.1 - ANOXIC BRAIN DAMAGE, NOT ELSEWHERE CLASSIFIED (3) Aspiration pneumonia Code(s): J69.0 - PNEUMONITIS DUE TO INHALATION OF FOOD AND VOMIT (4) Cerebral palsy Code(s): G80.9 - CEREBRAL PALSY, UNSPECIFIED (5) Feeding by G-tube Code(s): Z93.1 - GASTROSTOMY STATUS (6) Functional quadriplegia Code(s): R53.2 - FUNCTIONAL QUADRIPLEGIA (7) HLD (hyperlipidemia) Code(s): E78.5 - HYPERLIPIDEMIA, UNSPECIFIED (8) HTN (hypertension) Code(s): I10 - ESSENTIAL (PRIMARY) HYPERTENSION (9) Hypoxia Code(s): R09.02 - HYPOXEMIA (10) Seizure disorder Code(s): G40.909 - EPILEPSY, UNSP, NOT INTRACTABLE, WITHOUT STATUS EPILEPTICUS 1. COPD exacerbation 2. 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 Aspiration pneumonia 4. HTN BP not at goal control 5. Hyperlipidemia 6. Seizure PLAN: 1. Wean FIO2 and NIPPV as tolerated 2. Aspiration precautions 3. Respiratory treatment 4. DVT prophylaxis 5. Enteral feeds 6. Continue Norvasc 5 mg QD, Lipitor 20 mg QHS and increase Lopressor 50 mg BID via G tube 7. K supplement 8. D/c telemetry monitoring
--- NOTE | 2018-10-16 10:51 | PN ---
Progress Note, Physician History of Present Illness: events noted patient vomited in bipap probably aspirated febrile now - Current Medication List Current Medications: Active Medications Amlodipine Besylate (Norvasc -) 5 mg PO DAILY [facility] Last Admin: 10/15/18 11:31 Dose: 5 mg Arformoterol Tartrate (Brovana (Restricted To Pulmonology/Resp) -) 1 amp NEB RBID [facility] Last Admin: 10/16/18 07:44 Dose: 1 amp Ascorbic Acid (Vitamin C -) 500 mg GT BID [facility] Last Admin: 10/15/18 22:29 Dose: 500 mg Atorvastatin Calcium (Lipitor -) 20 mg GT HS [facility] Last Admin: 10/15/18 22:29 Dose: 20 mg Bacitracin (Bacitracin -) 1 applic TP TID [facility] Last Admin: 10/16/18 06:09 Dose: 1 applic Budesonide (Pulmicort 0.5 Mg Nebulizer -) 1 amp NEB RBID [facility] Last Admin: 10/15/18 21:40 Dose: Not Given Calcium Carbonate (Calcium Carb Oral Suspension -) 500 mg GT BID [facility] Last Admin: 10/16/18 01:38 Dose: 500 mg Heparin Sodium (Porcine) (Heparin -) 5,000 unit SQ BID [facility] Last Admin: 10/15/18 22:28 Dose: 5,000 unit Lactulose (Cephulac (Oral Use)) 10 gm GT DAILY [facility] Last Admin: 10/15/18 11:30 Dose: 10 gm Metoclopramide HCl (Reglan Oral Solution -) 5 mg GT DAILY [facility] Last Admin: 10/15/18 11:34 Dose: 5 mg Metoprolol Tartrate (Lopressor -) 50 mg GT BID [facility] Potassium Chloride (Potassium Chloride Oral Liquid) 40 meq PO BID [facility] Last Admin: 10/15/18 22:37 Dose: 40 meq - Objective Vital Signs: Vital Signs Temperature 98.3 F 10/16/18 06:00 Pulse Rate 86 10/16/18 06:00 Respiratory Rate 20 10/16/18 06:00 Blood Pressure 188/89 H 10/16/18 06:00 O2 Sat by Pulse Oximetry (%) 94 L 10/16/18 07:43 Constitutional: Yes: Other Cardiovascular: Yes: S1, S2 Respiratory: Yes: Poor Air Entry, Rhonchi, Other Gastrointestinal: Yes: Soft, Hypoactive Bowel Sounds Musculoskeletal: Yes: WNL Extremities: Yes: Other (contracted) Labs: CBC, BMP 10/14/18 06:26 10/14/18 06:26 INR, PTT INR 1.03 (0.83-1.09) 10/09/18 12:10 Assessment/Plan Problem List - Problems (1) COPD exacerbation Code(s): J44.1 - CHRONIC OBSTRUCTIVE PULMONARY DISEASE W (ACUTE) EXACERBATION (2) Anoxic brain injury Code(s): G93.1 - ANOXIC BRAIN DAMAGE, NOT ELSEWHERE CLASSIFIED (3) Aspiration pneumonia Code(s): J69.0 - PNEUMONITIS DUE TO INHALATION OF FOOD AND VOMIT (4) Cerebral palsy Code(s): G80.9 - CEREBRAL PALSY, UNSPECIFIED (5) Feeding by G-tube Code(s): Z93.1 - GASTROSTOMY STATUS (6) Functional quadriplegia Code(s): R53.2 - FUNCTIONAL QUADRIPLEGIA (7) HLD (hyperlipidemia) Code(s): E78.5 - HYPERLIPIDEMIA, UNSPECIFIED (8) HTN (hypertension) Code(s): I10 - ESSENTIAL (PRIMARY) HYPERTENSION (9) Hypoxia Code(s): R09.02 - HYPOXEMIA (10) Seizure disorder Code(s): G40.909 - EPILEPSY, UNSP, NOT INTRACTABLE, WITHOUT STATUS EPILEPTICUS plan will start patient on abx monitor fever hold the tube feeds aspiration precautions iv fluids
[2018-10-16] MEDS ORDERED: DEXTROSE 5%-WATER - 50 ML IVPB ONE ×2 (11:04→17:14)
[2018-10-16] MEDS ORDERED: PIPERACILLIN/TAZOBACTAM 3.375 GM VIAL IVPB ONE ×2 (11:04→17:13)
--- NOTE | 2018-10-16 11:12 | PN ---
Progress Note, Physician History of Present Illness: PULMONARY ON VM COMFORTABLE,LOW GRADE TEMP,VOMITING LAST NIGHT WHILE ON BIPAP - Current Medication List Current Medications: Active Medications Amlodipine Besylate (Norvasc -) 5 mg PO DAILY [facility] Last Admin: 10/15/18 11:31 Dose: 5 mg Arformoterol Tartrate (Brovana (Restricted To Pulmonology/Resp) -) 1 amp NEB RBID [facility] Last Admin: 10/16/18 07:44 Dose: 1 amp Ascorbic Acid (Vitamin C -) 500 mg GT BID [facility] Last Admin: 10/15/18 22:29 Dose: 500 mg Atorvastatin Calcium (Lipitor -) 20 mg GT HS [facility] Last Admin: 10/15/18 22:29 Dose: 20 mg Bacitracin (Bacitracin -) 1 applic TP TID [facility] Last Admin: 10/16/18 06:09 Dose: 1 applic Budesonide (Pulmicort 0.5 Mg Nebulizer -) 1 amp NEB RBID [facility] Last Admin: 10/15/18 21:40 Dose: Not Given Calcium Carbonate (Calcium Carb Oral Suspension -) 500 mg GT BID [facility] [place] Last Admin: 10/16/18 01:38 Dose: 500 mg Heparin Sodium (Porcine) (Heparin -) 5,000 unit SQ BID [facility] Last Admin: 10/15/18 22:28 Dose: 5,000 unit Piperacillin Sod/Tazobactam (Sod 3.375 gm/ Dextrose) 50 mls @ 100 mls/hr IVPB Q8H-IV [facility]; Protocol Lactulose (Cephulac (Oral Use)) 10 gm GT DAILY [facility] [place] Last Admin: 10/15/18 11:30 Dose: 10 gm Metoclopramide HCl (Reglan Oral Solution -) 5 mg GT DAILY [facility] [place] Last Admin: 10/15/18 11:34 Dose: 5 mg Metoprolol Tartrate (Lopressor -) 50 mg GT BID [facility] [place] Potassium Chloride (Potassium Chloride Oral Liquid) 40 meq PO BID [facility] Last Admin: 10/15/18 22:37 Dose: 40 meq - Objective Vital Signs: Vital Signs Temperature 98.3 F 10/16/18 06:00 Pulse Rate 86 10/16/18 06:00 Respiratory Rate 20 10/16/18 06:00 Blood Pressure 188/89 H 10/16/18 06:00 O2 Sat by Pulse Oximetry (%) 94 L 10/16/18 07:43 Constitutional: Yes: Well Nourished, Calm Eyes: Yes: WNL, Other Neck: Yes: WNL Cardiovascular: Yes: Regular Rate and Rhythm, S1, S2 Respiratory: Yes: Rhonchi (FEW RHONCHI) Gastrointestinal: Yes: Normal Bowel Sounds, Soft Extremities: Yes: Shortened, Other (CONTRACTED) Problem List - Problems (1) COPD exacerbation Code(s): J44.1 - CHRONIC OBSTRUCTIVE PULMONARY DISEASE W (ACUTE) EXACERBATION (2) Scoliosis deformity of spine Code(s): M41.9 - SCOLIOSIS, UNSPECIFIED (3) Anoxic brain injury Code(s): G93.1 - ANOXIC BRAIN DAMAGE, NOT ELSEWHERE CLASSIFIED (4) Aspiration pneumonia Code(s): J69.0 - PNEUMONITIS DUE TO INHALATION OF FOOD AND VOMIT (5) Cerebral palsy Code(s): G80.9 - CEREBRAL PALSY, UNSPECIFIED (6) Functional quadriplegia Code(s): R53.2 - FUNCTIONAL QUADRIPLEGIA (7) Hypoxia Code(s): R09.02 - HYPOXEMIA (8) Seizure disorder Code(s): G40.909 - EPILEPSY, UNSP, NOT INTRACTABLE, WITHOUT STATUS EPILEPTICUS (9) Acute on chronic respiratory failure with hypoxia and hypercapnia Code(s): J96.21 - ACUTE AND CHRONIC RESPIRATORY FAILURE WITH HYPOXIA; J96.22 - ACUTE AND CHRONIC RESPIRATORY FAILURE WITH HYPERCAPNIA Assessment/Plan A/P Acute COPD Exacerbation improving r/o Aspiration Anoxic Brain Injury Seizure Disorder HTN Hyperlipidemia Fever - antibiotics as per id - chest x-ray - O2 to keep SpO2 >90% - aspiration precautions - BiPAP to assist in work of breathing - ventimask as tolerated - DVT prophylaxis DR SUAREZ
[2018-10-16] MEDS: HEPARIN NA (PORCINE) 5,000 UNITS/ML 1ML VIAL SQ SCH ×2 (11:30→23:03)
[2018-10-16] MEDS: LACTULOSE 20 GM/30 ML UDC (FOR ORAL USE ONLY) GT SCH (11:38)
[2018-10-16] MEDS: ASCORBIC ACID 500 MG TABLET (FP) GT SCH ×2 (11:38→23:03)
[2018-10-16] MEDS: METOCLOPRAMIDE HCL 5 MG/5 ML UNIT DOSE CUP GT SCH (11:38)
[2018-10-16] MEDS: POTASSIUM CHLORIDE ORAL LIQUID 20 MEQ/15 ML PO SCH ×2 (11:38→22:59)
[2018-10-16] MEDS: amLODIPine BESYLATE 5 MG TABLET (FP) PO SCH (11:38)
[2018-10-16] MEDS: PIPERACILLIN/TAZOB 3.375 GM 3.375 GM in DEXTROSE 5%-WATER - 50 ML IVPB SCH ×2 (11:39→17:21)
[2018-10-16] MEDS: METOPROLOL TARTRATE 25 MG TABLET (FP) GT SCH ×2 (17:18→23:00)
--- NOTE | 2018-10-16 17:35 | DS ---
Physical Examination Vital Signs: Vital Signs Temperature 98.3 F 10/16/18 06:00 Pulse Rate 122 H 10/16/18 10:00 Respiratory Rate 26 H 10/16/18 10:00 Blood Pressure 165/52 L 10/16/18 10:00 O2 Sat by Pulse Oximetry (%) 99 10/16/18 16:31 Labs: CBC, BMP 10/14/18 06:26 10/14/18 06:26 Discharge Summary Reason For Visit: ACUTE EXACERBATION OF CHRONIC OBSTRUCTIVE PULMONAR Current Active Problems COPD exacerbation (Acute) Malfunction of percutaneous endoscopic gastrostomy (PEG) tube (Acute) PEG (percutaneous endoscopic gastrostomy) status (Acute) Scoliosis deformity of spine (Chronic) - Instructions - Home Medications Comprehensive Discharge Medication List: Ambulatory Orders Albuterol 2.5/Ipratropium 0.5 [Duoneb -] 1 neb IH QID 10/09/18 Alendronate Sodium 70 mg GT DAILY 10/09/18 Amlodipine Besylate [Norvasc -] 2.5 mg PO DAILY 10/09/18 Arformoterol Tartrate [Brovana] 15 mcg IH BID 10/09/18 Ascorbic Acid 500 mg GT BID 10/09/18 Bacitracin - [Bacitracin Topical Ointment -] 1 applic TP TID 10/09/18 Budesonide 1 mg IH BID 10/09/18 Calcium (Oyster Shell) [Os-Jamar 500MG -] 500 mg NR BID 10/09/18 Clotrimazole/Betamethasone Dip [Clotrimazole-Betamethasone Crm] 45 gm TP BID 09/20 Lactobacillus Acidophilus [Acidophilus] 1 each PO BID 10/09/18 Lactulose 10 gm GT DAILY 10/09/18 Metoclopramide HCl 5 mg PO DAILY 10/09/18 Metoprolol Tartrate 25 mg PO BID 10/09/18 Multivitamin/Iron/Folic Acid [Centrum Adults Tablet] 1 each GT DAILY 10/09/18 Olopatadine HCl 2.5 ml OP DAILY 10/09/18 Protein Supplement [Promod] 30 ml GT DAILY 10/09/18 Silver Sulfadiazine 1% Top Cr [Silvadene -] 1 applic TP DAILY 10/09/18 Simvastatin 40 mg GT DAILY 10/09/18 Zinc Oxide 20% Topical Oint 60 gm TD ASDIR 10/09/18
--- NOTE | 2018-10-16 18:37 | PN ---
Progress Note, Physician History of Present Illness: ON VENTI MASK HAD A TEMP TODAY LOW GRADE VOMITTED LAST NIGHT - Current Medication List Current Medications: Active Medications Amlodipine Besylate (Norvasc -) 5 mg PO DAILY [facility] Last Admin: 10/16/18 11:38 Dose: Not Given Arformoterol Tartrate (Brovana (Restricted To Pulmonology/Resp) -) 1 amp NEB RBID [facility] Last Admin: 10/16/18 07:44 Dose: 1 amp Ascorbic Acid (Vitamin C -) 500 mg GT BID [facility] Last Admin: 10/16/18 11:38 Dose: Not Given Atorvastatin Calcium (Lipitor -) 20 mg GT HS [facility] Last Admin: 10/15/18 22:29 Dose: 20 mg Bacitracin (Bacitracin -) 1 applic TP TID [facility] Last Admin: 10/16/18 14:00 Dose: 1 applic Budesonide (Pulmicort 0.5 Mg Nebulizer -) 1 amp NEB RBID [facility] Last Admin: 10/16/18 07:50 Dose: 1 amp Calcium Carbonate (Calcium Carb Oral Suspension -) 500 mg GT BID [facility] Last Admin: 10/16/18 11:38 Dose: Not Given Heparin Sodium (Porcine) (Heparin -) 5,000 unit SQ BID [facility] Last Admin: 10/16/18 11:30 Dose: 5,000 unit Piperacillin Sod/Tazobactam (Sod 3.375 gm/ Dextrose) 50 mls @ 100 mls/hr IVPB Q8H-IV [facility]; Protocol Last Admin: 10/16/18 17:21 Dose: 100 mls/hr Lactulose (Cephulac (Oral Use)) 10 gm GT DAILY [facility] Last Admin: 10/16/18 11:38 Dose: Not Given Metoclopramide HCl (Reglan Oral Solution -) 5 mg GT DAILY [facility] Last Admin: 10/16/18 11:38 Dose: Not Given Metoprolol Tartrate (Lopressor -) 50 mg GT BID [facility] Potassium Chloride (Potassium Chloride Oral Liquid) 40 meq PO BID [facility] Last Admin: 10/16/18 11:38 Dose: Not Given - Objective Vital Signs: Vital Signs Temperature 98.3 F 10/16/18 06:00 Pulse Rate 122 H 10/16/18 10:00 Respiratory Rate 26 H 10/16/18 10:00 Blood Pressure 165/52 L 10/16/18 10:00 O2 Sat by Pulse Oximetry (%) 99 10/16/18 16:31 HENT: Yes: Atraumatic Cardiovascular: Yes: Regular Rate and Rhythm Respiratory: Yes: CTA Bilaterally Extremities: Yes: WNL Neurological: Yes: Alert Labs: CBC, BMP 10/14/18 06:26 10/14/18 06:26 INR, PTT INR 1.03 (0.83-1.09) 10/09/18 12:10 Problem List - Problems (1) COPD exacerbation Assessment/Plan: on venti mask duo nebs prn Code(s): J44.1 - CHRONIC OBSTRUCTIVE PULMONARY DISEASE W (ACUTE) EXACERBATION (2) Anoxic brain injury Code(s): G93.1 - ANOXIC BRAIN DAMAGE, NOT ELSEWHERE CLASSIFIED (3) Aspiration pneumonia Assessment/Plan: off of abx ...observe aspiration precautins Code(s): J69.0 - PNEUMONITIS DUE TO INHALATION OF FOOD AND VOMIT (4) Cerebral palsy Code(s): G80.9 - CEREBRAL PALSY, UNSPECIFIED (5) Feeding by G-tube Assessment/Plan: on tube feeds Code(s): Z93.1 - GASTROSTOMY STATUS (6) Functional quadriplegia Code(s): R53.2 - FUNCTIONAL QUADRIPLEGIA (7) HLD (hyperlipidemia) Code(s): E78.5 - HYPERLIPIDEMIA, UNSPECIFIED Qualifiers: Hyperlipidemia type: pure hypercholesterolemia Qualified Code(s): E78.00 - Pure hypercholesterolemia, unspecified; E78.0 - Pure hypercholesterolemia (8) HTN (hypertension) Assessment/Plan: on meds monitor...bp stabilizing now Code(s): I10 - ESSENTIAL (PRIMARY) HYPERTENSION Qualifiers: Hypertension type: essential hypertension Qualified Code(s): I10 - Essential (primary) hypertension (9) Hypoxia Code(s): R09.02 - HYPOXEMIA (10) Seizure disorder Code(s): G40.909 - EPILEPSY, UNSP, NOT INTRACTABLE, WITHOUT STATUS EPILEPTICUS
[2018-10-16] MEDS ORDERED: SODIUM PHOSPHATE/NA BIPHOS 133 ML ENEMA PR ONE (18:38)
[2018-10-16] MEDS ORDERED: PT OWN MED DRAWER 7, Y5N ONE (20:45)
[2018-10-16] MEDS: ATORVASTATIN CA 20 MG TABLET (FP) GT SCH (23:02)
[2018-10-17] MEDS ORDERED: DEXTROSE 5%-WATER - 50 ML IVPB ONE ×3 (02:03→17:45)
[2018-10-17] MEDS ORDERED: PIPERACILLIN/TAZOBACTAM 3.375 GM VIAL IVPB ONE ×3 (02:03→17:45)
[2018-10-17] MEDS: PIPERACILLIN/TAZOB 3.375 GM 3.375 GM in DEXTROSE 5%-WATER - 50 ML IVPB SCH ×3 (02:51→17:45)
[2018-10-17] MEDS: BACITRACIN 15 GM TUBE TOPICAL OINTMENT TP SCH ×3 (06:55→22:55)
[2018-10-17 07:15] LABS: BASO % 0.4 % (0-2.0); EOS % 0.6 % (0-4.5); HEMATOCRIT 40.2 % (32.4-45.2); HEMOGLOBIN 13.9 GM/dL (10.7-15.3); LYMPH % 8.9 % (8-40); MCH 30.8 pg (25.7-33.7); MCHC 34.5 g/dl (32.0-36.0); MEAN CELL VOLUME 89.2 fl (80-96); MEAN PLT VOLUME 7.8 fl (7.5-11.1); NEUT % 80.1 % (42.8-82.8); PLATELET COUNT 350 K/MM3 (134-434); RDW 13.7 % (11.6-15.6); WHITE BLOOD COUNT 12.8 K/mm3 (4.0-10.0)
[2018-10-17] MEDS: ARFORMOTEROL TARTRATE 15 MCG/2 ML VIAL NEB SCH ×2 (07:42→20:18)
[2018-10-17] MEDS: BUDESONIDE 0.5 MG/2 ML INH SUSP VIAL NEB SCH ×2 (07:43→20:18)
[2018-10-17 08:08] LABS: ALBUMIN 2.7 g/dl (3.4-5.0); BILIRUBIN,TOTAL 0.3 mg/dL (0.2-1); BLOOD UREA NITROGEN 12.8 mg/dL (7-18); CALCIUM 8.8 mg/dL (8.5-10.1); CREATININE 0.3 mg/dL (0.55-1.3); POTASSIUM 4.3 mmol/L (3.5-5.1)
[2018-10-17] MEDS: METOCLOPRAMIDE HCL 5 MG/5 ML UNIT DOSE CUP GT SCH (09:55)
[2018-10-17] MEDS: POTASSIUM CHLORIDE ORAL LIQUID 20 MEQ/15 ML PO SCH ×2 (09:56→22:54)
[2018-10-17] MEDS: ASCORBIC ACID 500 MG TABLET (FP) GT SCH ×2 (10:06→22:55)
[2018-10-17] MEDS: amLODIPine BESYLATE 5 MG TABLET (FP) PO SCH (10:06)
[2018-10-17] MEDS: HEPARIN NA (PORCINE) 5,000 UNITS/ML 1ML VIAL SQ SCH ×2 (10:06→22:54)
[2018-10-17] MEDS: METOPROLOL TARTRATE 25 MG TABLET (FP) GT SCH (10:06)
[2018-10-17] MEDS: LACTULOSE 20 GM/30 ML UDC (FOR ORAL USE ONLY) GT SCH (10:06)
[2018-10-17] MEDS: CALCIUM CARBONATE SUSPENSION - 500 MG/5 ML ML GT SCH ×2 (10:07→22:54)
--- NOTE | 2018-10-17 10:10 | CON.ORTH ---
Consult Reason for Consultation:: left humerus fx - Past Medical History [employer]: Yes: Seizure, Other Cardio/Vascular: Yes: HTN, Hyperlipdemia Infectious Disease: Yes: Other (recent pneumonia, recent pseudomonas UTI) - Alcohol/Substance Use Hx Alcohol Use: No - Smoking History Smoking history: Unknown if ever smoked Have you smoked in the past 12 months: No - Social History Usual Living Arrangement: Retirement ADL: Support Services History of Recent Travel: No Home Medications - Allergies Allergies/Adverse Reactions: Allergies Allergy/AdvReac Type Severity Reaction Status Date / Time No Known Allergies Allergy Verified 06/26/18 11:56 - Home Medications Home Medications: Ambulatory Orders Albuterol 2.5/Ipratropium 0.5 [Duoneb -] 1 neb IH QID 10/09/18 Alendronate Sodium 70 mg GT DAILY 10/09/18 Amlodipine Besylate [Norvasc -] 2.5 mg PO DAILY 10/09/18 Arformoterol Tartrate [Brovana] 15 mcg IH BID 10/09/18 Ascorbic Acid 500 mg GT BID 10/09/18 Bacitracin - [Bacitracin Topical Ointment -] 1 applic TP TID 10/09/18 Budesonide 1 mg IH BID 10/09/18 Calcium (Oyster Shell) [Os-Jamar 500MG -] 500 mg NR BID 10/09/18 Clotrimazole/Betamethasone Dip [Clotrimazole-Betamethasone Crm] 45 gm TP BID 09/20 Lactobacillus Acidophilus [Acidophilus] 1 each PO BID 10/09/18 Lactulose 10 gm GT DAILY 10/09/18 Metoclopramide HCl 5 mg PO DAILY 10/09/18 Metoprolol Tartrate 25 mg PO BID 10/09/18 Multivitamin/Iron/Folic Acid [Centrum Adults Tablet] 1 each GT DAILY 10/09/18 Olopatadine HCl 2.5 ml OP DAILY 10/09/18 Protein Supplement [Promod] 30 ml GT DAILY 10/09/18 Silver Sulfadiazine 1% Top Cr [Silvadene -] 1 applic TP DAILY 10/09/18 Simvastatin 40 mg GT DAILY 10/09/18 Zinc Oxide 20% Topical Oint 60 gm TD ASDIR 10/09/18 Physical Exam for Ortho Vital Signs: Vital Signs Temperature 98.9 F 10/17/18 08:00 Pulse Rate 104 H 10/17/18 08:00 Respiratory Rate 22 H 10/17/18 08:00 Blood Pressure 154/86 10/17/18 08:00 O2 Sat by Pulse Oximetry (%) 97 10/17/18 07:42 Labs: CBC, BMP 10/17/18 05:47 10/17/18 05:47 INR, PTT INR 1.03 (0.83-1.09) 10/09/18 12:10 - Upper Extremity Arm: Yes: Left, Other (nontender, good passive rom) Imaging - Results X-ray: Image Reviewed Assessment/Plan 67 y/o F w/PMH of MR, anoxic brain injury, aspiration pna, uti, CVA, COPD, HTN, HLD, epilepsy, PEG tube presented from [facility] [place] for hypoxia. Note was made on chest xray of a fracture of the left humeral shaft. The patient is unable to provide a history given her mental status and non verbal state. On review of her chart she had an xray of her left humerus on 06/12/18 which showed a healing left humeral shaft fx. Also chest xray from April also shows a healing fx at that point. Pt does not appear to have and pain over fracture site or with movement. a/p left healed humeral shaft fx NTD no restrictions from ortho pov re-consult prn d/w Dr. Trores
--- NOTE | 2018-10-17 10:17 | PN ---
Progress Note, Physician History of Present Illness: She is arousable and comfortable weaned to , placed on abx for recurrent aspiration. BP improved after beta mara uptitration. - Current Medication List Current Medications: Active Medications Amlodipine Besylate (Norvasc -) 5 mg PO DAILY [facility] Last Admin: 10/17/18 10:06 Dose: 5 mg Arformoterol Tartrate (Brovana (Restricted To Pulmonology/Resp) -) 1 amp NEB RBID [facility] Last Admin: 10/17/18 07:42 Dose: 1 amp Ascorbic Acid (Vitamin C -) 500 mg GT BID [facility] Last Admin: 10/17/18 10:06 Dose: 500 mg Atorvastatin Calcium (Lipitor -) 20 mg GT HS [facility] Last Admin: 10/16/18 23:02 Dose: 20 mg Bacitracin (Bacitracin -) 1 applic TP TID [facility] Last Admin: 10/17/18 06:55 Dose: 1 applic Budesonide (Pulmicort 0.5 Mg Nebulizer -) 1 amp NEB RBID [facility] Last Admin: 10/17/18 07:43 Dose: 1 amp Calcium Carbonate (Calcium Carb Oral Suspension -) 500 mg GT BID [facility] Last Admin: 10/17/18 10:07 Dose: 500 mg Heparin Sodium (Porcine) (Heparin -) 5,000 unit SQ BID [facility] Last Admin: 10/17/18 10:06 Dose: 5,000 unit Piperacillin Sod/Tazobactam (Sod 3.375 gm/ Dextrose) 50 mls @ 100 mls/hr IVPB Q8H-IV [facility]; Protocol Last Admin: 10/17/18 09:54 Dose: 100 mls/hr Lactulose (Cephulac (Oral Use)) 10 gm GT DAILY [facility] Last Admin: 10/17/18 10:06 Dose: 10 gm Metoclopramide HCl (Reglan Oral Solution -) 5 mg GT DAILY [facility] Last Admin: 10/17/18 09:55 Dose: 5 mg Metoprolol Tartrate (Lopressor -) 50 mg GT BID [facility] Last Admin: 10/17/18 10:06 Dose: 50 mg Potassium Chloride (Potassium Chloride Oral Liquid) 40 meq PO BID [facility] Last Admin: 10/17/18 09:56 Dose: 40 meq - Objective Vital Signs: Vital Signs Temperature 98.9 F 10/17/18 08:00 Pulse Rate 104 H 10/17/18 08:00 Respiratory Rate 22 H 10/17/18 08:00 Blood Pressure 154/86 10/17/18 08:00 O2 Sat by Pulse Oximetry (%) 97 10/17/18 07:42 Constitutional: Yes: No Distress, Calm Neck: Yes: Supple Cardiovascular: Yes: Regular Rate and Rhythm Respiratory: Yes: Regular, Diminished, On Venti-Mask Gastrointestinal: Yes: Normal Bowel Sounds, Soft, Other (PEG in place) Edema: No Labs: CBC, BMP 10/17/18 05:47 10/17/18 05:47 INR, PTT INR 1.03 (0.83-1.09) 10/09/18 12:10 - ....Imaging EKG: Report Reviewed (Tele: NSR) Assessment/Plan Problems (1) COPD exacerbation Code(s): J44.1 - CHRONIC OBSTRUCTIVE PULMONARY DISEASE W (ACUTE) EXACERBATION (2) Anoxic brain injury Code(s): G93.1 - ANOXIC BRAIN DAMAGE, NOT ELSEWHERE CLASSIFIED (3) Aspiration pneumonia Code(s): J69.0 - PNEUMONITIS DUE TO INHALATION OF FOOD AND VOMIT (4) Cerebral palsy Code(s): G80.9 - CEREBRAL PALSY, UNSPECIFIED (5) Feeding by G-tube Code(s): Z93.1 - GASTROSTOMY STATUS (6) Functional quadriplegia Code(s): R53.2 - FUNCTIONAL QUADRIPLEGIA (7) HLD (hyperlipidemia) Code(s): E78.5 - HYPERLIPIDEMIA, UNSPECIFIED (8) HTN (hypertension) Code(s): I10 - ESSENTIAL (PRIMARY) HYPERTENSION (9) Hypoxia Code(s): R09.02 - HYPOXEMIA (10) Seizure disorder Code(s): G40.909 - EPILEPSY, UNSP, NOT INTRACTABLE, WITHOUT STATUS EPILEPTICUS 1. COPD exacerbation 2. 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 Aspiration pneumonia 4. HTN BP not at goal control 5. Hyperlipidemia 6. Seizure PLAN: 1. Wean FIO2 and NIPPV as tolerated 2. Aspiration precautions, antibiotic course per id 3. Respiratory treatment 4. DVT prophylaxis 5. Enteral feeds resumed 6. Continue Norvasc 5 mg QD, Lipitor 20 mg QHS and Lopressor 50 mg BID via G tube 7. K supplement 8. D/c telemetry monitoring
--- NOTE | 2018-10-17 11:43 | PN ---
Progress Note, Physician History of Present Illness: pulmonary arousable ,comfortable on vm,-resp distress - Current Medication List Current Medications: Active Medications Amlodipine Besylate (Norvasc -) 5 mg PO DAILY [facility] Last Admin: 10/17/18 10:06 Dose: 5 mg Arformoterol Tartrate (Brovana (Restricted To Pulmonology/Resp) -) 1 amp NEB RBID [facility] Last Admin: 10/17/18 07:42 Dose: 1 amp Ascorbic Acid (Vitamin C -) 500 mg GT BID [facility] Last Admin: 10/17/18 10:06 Dose: 500 mg Atorvastatin Calcium (Lipitor -) 20 mg GT HS [facility] Last Admin: 10/16/18 23:02 Dose: 20 mg Bacitracin (Bacitracin -) 1 applic TP TID [facility] Last Admin: 10/17/18 06:55 Dose: 1 applic Budesonide (Pulmicort 0.5 Mg Nebulizer -) 1 amp NEB RBID [facility] Last Admin: 10/17/18 07:43 Dose: 1 amp Calcium Carbonate (Calcium Carb Oral Suspension -) 500 mg GT BID [facility] Last Admin: 10/17/18 10:07 Dose: 500 mg Heparin Sodium (Porcine) (Heparin -) 5,000 unit SQ BID [facility] Last Admin: 10/17/18 10:06 Dose: 5,000 unit Piperacillin Sod/Tazobactam (Sod 3.375 gm/ Dextrose) 50 mls @ 100 mls/hr IVPB Q8H-IV [facility]; Protocol Last Admin: 10/17/18 09:54 Dose: 100 mls/hr Lactulose (Cephulac (Oral Use)) 10 gm GT DAILY [facility] Last Admin: 10/17/18 10:06 Dose: 10 gm Metoclopramide HCl (Reglan Oral Solution -) 5 mg GT DAILY [facility] Last Admin: 10/17/18 09:55 Dose: 5 mg Metoprolol Tartrate (Lopressor -) 50 mg GT BID [facility] Last Admin: 10/17/18 10:06 Dose: 50 mg Potassium Chloride (Potassium Chloride Oral Liquid) 40 meq PO BID [facility] Last Admin: 10/17/18 09:56 Dose: 40 meq - Objective Vital Signs: Vital Signs Temperature 98.9 F 10/17/18 08:00 Pulse Rate 104 H 10/17/18 08:00 Respiratory Rate 22 H 10/17/18 08:00 Blood Pressure 154/86 08/15/19 08:00 O2 Sat by Pulse Oximetry (%) 97 10/17/18 07:42 Constitutional: Yes: Well Nourished, Other (arousable) Eyes: Yes: WNL HENT: Yes: WNL Neck: Yes: WNL Cardiovascular: Yes: Regular Rate and Rhythm, S1, S2 Respiratory: Yes: Diminished Gastrointestinal: Yes: Normal Bowel Sounds, Soft Extremities: Yes: Shortened, Other (contracted) Edema: No Labs: CBC, BMP 10/17/18 05:47 10/17/18 05:47 INR, PTT INR 1.03 (0.83-1.09) 10/09/18 12:10 Problem List - Problems (1) COPD exacerbation Code(s): J44.1 - CHRONIC OBSTRUCTIVE PULMONARY DISEASE W (ACUTE) EXACERBATION (2) Scoliosis deformity of spine Code(s): M41.9 - SCOLIOSIS, UNSPECIFIED (3) Anoxic brain injury Code(s): G93.1 - ANOXIC BRAIN DAMAGE, NOT ELSEWHERE CLASSIFIED (4) Aspiration pneumonia Code(s): J69.0 - PNEUMONITIS DUE TO INHALATION OF FOOD AND VOMIT (5) Cerebral palsy Code(s): G80.9 - CEREBRAL PALSY, UNSPECIFIED (6) Functional quadriplegia Code(s): R53.2 - FUNCTIONAL QUADRIPLEGIA (7) Hypoxia Code(s): R09.02 - HYPOXEMIA (8) Seizure disorder Code(s): G40.909 - EPILEPSY, UNSP, NOT INTRACTABLE, WITHOUT STATUS EPILEPTICUS (9) Acute on chronic respiratory failure with hypoxia and hypercapnia Code(s): J96.21 - ACUTE AND CHRONIC RESPIRATORY FAILURE WITH HYPOXIA; J96.22 - ACUTE AND CHRONIC RESPIRATORY FAILURE WITH HYPERCAPNIA Assessment/Plan A/P Acute COPD Exacerbation improving r/o Aspiration Anoxic Brain Injury Seizure Disorder HTN Hyperlipidemia Fever - antibiotics as per id - O2 to keep SpO2 >90% - aspiration precautions - BiPAP to assist in work of breathing as needed - ventimask as tolerated - DVT prophylaxis DR SUAREZ
--- NOTE | 2018-10-17 15:08 | PN ---
Progress Note, Physician - Current Medication List Current Medications: Active Medications Amlodipine Besylate (Norvasc -) 5 mg PO DAILY [facility] Last Admin: 10/17/18 10:06 Dose: 5 mg Arformoterol Tartrate (Brovana (Restricted To Pulmonology/Resp) -) 1 amp NEB RBID [facility] Last Admin: 10/17/18 07:42 Dose: 1 amp Ascorbic Acid (Vitamin C -) 500 mg GT BID [facility] Last Admin: 10/17/18 10:06 Dose: 500 mg Atorvastatin Calcium (Lipitor -) 20 mg GT HS [facility] Last Admin: 10/16/18 23:02 Dose: 20 mg Bacitracin (Bacitracin -) 1 applic TP TID [facility] Last Admin: 10/17/18 06:55 Dose: 1 applic Budesonide (Pulmicort 0.5 Mg Nebulizer -) 1 amp NEB RBID [facility] Last Admin: 10/17/18 07:43 Dose: 1 amp Calcium Carbonate (Calcium Carb Oral Suspension -) 500 mg GT BID [facility] Last Admin: 10/17/18 10:07 Dose: 500 mg Heparin Sodium (Porcine) (Heparin -) 5,000 unit SQ BID [facility] Last Admin: 10/17/18 10:06 Dose: 5,000 unit Piperacillin Sod/Tazobactam (Sod 3.375 gm/ Dextrose) 50 mls @ 100 mls/hr IVPB Q8H-IV [facility]; Protocol Last Admin: 10/17/18 09:54 Dose: 100 mls/hr Lactulose (Cephulac (Oral Use)) 10 gm GT DAILY [facility] Last Admin: 10/17/18 10:06 Dose: 10 gm Metoclopramide HCl (Reglan Oral Solution -) 5 mg GT DAILY [facility] Last Admin: 10/17/18 09:55 Dose: 5 mg Metoprolol Tartrate (Lopressor -) 50 mg GT BID [facility] Last Admin: 10/17/18 10:06 Dose: 50 mg Potassium Chloride (Potassium Chloride Oral Liquid) 40 meq PO BID [facility] Last Admin: 10/17/18 09:56 Dose: 40 meq - Objective Vital Signs: Vital Signs Temperature 98.9 F 10/17/18 08:00 Pulse Rate 104 H 10/17/18 08:00 Respiratory Rate 22 H 10/17/18 08:00 Blood Pressure 154/86 10/17/18 08:00 O2 Sat by Pulse Oximetry (%) 98 10/17/18 09:00 Constitutional: Yes: No Distress HENT: Yes: Atraumatic Neck: Yes: Supple Cardiovascular: Yes: Regular Rate and Rhythm Respiratory: Yes: Rhonchi Gastrointestinal: Yes: Normal Bowel Sounds, Other (peg in place) Edema: No Neurological: Yes: Alert Labs: CBC, BMP 10/17/18 05:47 10/17/18 05:47 INR, PTT INR 1.03 (0.83-1.09) 10/09/18 12:10 Problem List - Problems (1) COPD exacerbation Assessment/Plan: on venti mask duo nebs prn Code(s): J44.1 - CHRONIC OBSTRUCTIVE PULMONARY DISEASE W (ACUTE) EXACERBATION (2) Anoxic brain injury Code(s): G93.1 - ANOXIC BRAIN DAMAGE, NOT ELSEWHERE CLASSIFIED (3) Aspiration pneumonia Assessment/Plan: on iv abx now aspiration precautins Code(s): J69.0 - PNEUMONITIS DUE TO INHALATION OF FOOD AND VOMIT (4) Cerebral palsy Code(s): G80.9 - CEREBRAL PALSY, UNSPECIFIED (5) Feeding by G-tube Assessment/Plan: on tube feeds Code(s): Z93.1 - GASTROSTOMY STATUS (6) Functional quadriplegia Code(s): R53.2 - FUNCTIONAL QUADRIPLEGIA (7) HLD (hyperlipidemia) Code(s): E78.5 - HYPERLIPIDEMIA, UNSPECIFIED Qualifiers: Hyperlipidemia type: pure hypercholesterolemia Qualified Code(s): E78.00 - Pure hypercholesterolemia, unspecified; E78.0 - Pure hypercholesterolemia (8) HTN (hypertension) Assessment/Plan: on meds monitor...bp stabilizing now Code(s): I10 - ESSENTIAL (PRIMARY) HYPERTENSION Qualifiers: Hypertension type: essential hypertension Qualified Code(s): I10 - Essential (primary) hypertension (9) Hypoxia Code(s): R09.02 - HYPOXEMIA (10) Seizure disorder Assessment/Plan: on meds stable Code(s): G40.909 - EPILEPSY, UNSP, NOT INTRACTABLE, WITHOUT STATUS EPILEPTICUS Assessment/Plan xray report reviewed ortho consult reviewed
[2018-10-17] MEDS ORDERED: amLODIPine BESYLATE 5 MG TABLET (FP) PO ONE (16:40)
--- NOTE | 2018-10-17 16:49 | PN ---
Progress Note, Physician History of Present Illness: patient slightly better still breathing issues - Current Medication List Current Medications: Active Medications Amlodipine Besylate (Norvasc -) 10 mg PO DAILY [facility] Arformoterol Tartrate (Brovana (Restricted To Pulmonology/Resp) -) 1 amp NEB RBID [facility] Last Admin: 10/17/18 07:42 Dose: 1 amp Ascorbic Acid (Vitamin C -) 500 mg GT BID [facility] Last Admin: 10/17/18 10:06 Dose: 500 mg Atorvastatin Calcium (Lipitor -) 20 mg GT HS [facility] Last Admin: 10/16/18 23:02 Dose: 20 mg Bacitracin (Bacitracin -) 1 applic TP TID [facility] Last Admin: 10/17/18 06:55 Dose: 1 applic Budesonide (Pulmicort 0.5 Mg Nebulizer -) 1 amp NEB RBID [facility] Last Admin: 10/17/18 07:43 Dose: 1 amp Calcium Carbonate (Calcium Carb Oral Suspension -) 500 mg GT BID [facility] Last Admin: 10/17/18 10:07 Dose: 500 mg Heparin Sodium (Porcine) (Heparin -) 5,000 unit SQ BID [facility] Last Admin: 10/17/18 10:06 Dose: 5,000 unit Piperacillin Sod/Tazobactam (Sod 3.375 gm/ Dextrose) 50 mls @ 100 mls/hr IVPB Q8H-IV [facility]; Protocol Last Admin: 10/17/18 09:54 Dose: 100 mls/hr Lactulose (Cephulac (Oral Use)) 10 gm GT DAILY [facility] Last Admin: 10/17/18 10:06 Dose: 10 gm Metoclopramide HCl (Reglan Oral Solution -) 5 mg GT DAILY [facility] Last Admin: 10/17/18 09:55 Dose: 5 mg Metoprolol Succinate (Toprol Xl -) 75 mg PO BID [facility] Potassium Chloride (Potassium Chloride Oral Liquid) 40 meq PO BID [facility] Last Admin: 10/17/18 09:56 Dose: 40 meq - Objective Vital Signs: Vital Signs Temperature 100.3 F H 10/17/18 15:43 Pulse Rate 83 10/17/18 15:43 Respiratory Rate 22 H 10/17/18 15:43 Blood Pressure 156/87 10/17/18 15:43 O2 Sat by Pulse Oximetry (%) 97 10/17/18 15:43 Constitutional: Yes: Mild Distress Cardiovascular: Yes: Regular Rate and Rhythm Respiratory: Yes: Poor Air Entry, Rhonchi, Other (on mask) Gastrointestinal: Yes: Normal Bowel Sounds, Hypoactive Bowel Sounds Musculoskeletal: Yes: WNL Extremities: Yes: Other (contracted) Neurological: Yes: Other Labs: CBC, BMP 10/17/18 05:47 10/17/18 05:47 INR, PTT INR 1.03 (0.83-1.09) 10/09/18 12:10 Assessment/Plan Problem List - Problems (1) COPD exacerbation Code(s): J44.1 - CHRONIC OBSTRUCTIVE PULMONARY DISEASE W (ACUTE) EXACERBATION (2) Anoxic brain injury Code(s): G93.1 - ANOXIC BRAIN DAMAGE, NOT ELSEWHERE CLASSIFIED (3) Aspiration pneumonia Code(s): J69.0 - PNEUMONITIS DUE TO INHALATION OF FOOD AND VOMIT (4) Cerebral palsy Code(s): G80.9 - CEREBRAL PALSY, UNSPECIFIED (5) Feeding by G-tube Code(s): Z93.1 - GASTROSTOMY STATUS (6) Functional quadriplegia Code(s): R53.2 - FUNCTIONAL QUADRIPLEGIA (7) HLD (hyperlipidemia) Code(s): E78.5 - HYPERLIPIDEMIA, UNSPECIFIED (8) HTN (hypertension) Code(s): I10 - ESSENTIAL (PRIMARY) HYPERTENSION (9) Hypoxia Code(s): R09.02 - HYPOXEMIA (10) Seizure disorder Code(s): G40.909 - EPILEPSY, UNSP, NOT INTRACTABLE, WITHOUT STATUS EPILEPTICUS plan abx monitor closely nutrition asp precautions
[2018-10-17] MEDS ORDERED: PT OWN MED DRAWER 7, Y5N ONE (22:10)
[2018-10-17] MEDS: metoPROLOL SUCCINATE 25 MG TAB.SR.24H (FP) PO SCH (22:55)
[2018-10-17] MEDS: ATORVASTATIN CA 20 MG TABLET (FP) GT SCH (22:55)
[2018-10-18] MEDS ORDERED: PIPERACILLIN/TAZOBACTAM 3.375 GM VIAL IVPB ONE ×3 (01:28→17:29)
[2018-10-18] MEDS ORDERED: DEXTROSE 5%-WATER - 50 ML IVPB ONE ×3 (01:29→17:29)
[2018-10-18] MEDS: PIPERACILLIN/TAZOB 3.375 GM 3.375 GM in DEXTROSE 5%-WATER - 50 ML IVPB SCH ×3 (01:42→17:50)
[2018-10-18] MEDS ORDERED: PT OWN MED DRAWER 7, Y5N ONE ×3 (07:11→18:22)
[2018-10-18] MEDS: BUDESONIDE 0.5 MG/2 ML INH SUSP VIAL NEB SCH ×2 (07:27→21:16)
[2018-10-18] MEDS: ARFORMOTEROL TARTRATE 15 MCG/2 ML VIAL NEB SCH ×2 (07:27→21:16)
[2018-10-18] MEDS: metoPROLOL SUCCINATE 25 MG TAB.SR.24H (FP) PO SCH ×2 (09:24→23:20)
[2018-10-18] MEDS: POTASSIUM CHLORIDE ORAL LIQUID 20 MEQ/15 ML PO SCH ×2 (09:24→23:20)
[2018-10-18] MEDS: HEPARIN NA (PORCINE) 5,000 UNITS/ML 1ML VIAL SQ SCH ×2 (09:25→23:20)
[2018-10-18] MEDS: LACTULOSE 20 GM/30 ML UDC (FOR ORAL USE ONLY) GT SCH (09:25)
[2018-10-18] MEDS: amLODIPine BESYLATE 10 MG TABLET (FP) PO SCH ×2 (09:25→10:50)
[2018-10-18] MEDS: ASCORBIC ACID 500 MG TABLET (FP) GT SCH ×2 (09:25→23:20)
[2018-10-18] MEDS: METOCLOPRAMIDE HCL 5 MG/5 ML UNIT DOSE CUP GT SCH (09:26)
[2018-10-18] MEDS: CALCIUM CARBONATE SUSPENSION - 500 MG/5 ML ML GT SCH ×2 (09:27→23:20)
[2018-10-18] MEDS: BACITRACIN 15 GM TUBE TOPICAL OINTMENT TP SCH ×3 (09:27→23:34)
--- NOTE | 2018-10-18 10:39 | PN ---
Progress Note, Physician History of Present Illness: PULMONARY AWAKE NON-VERBAL ON VM,-RESP DISTRESS,O2 SAT 96% - Current Medication List Current Medications: Active Medications Amlodipine Besylate (Norvasc -) 10 mg PO DAILY [facility] Last Admin: 10/18/18 09:25 Dose: 10 mg Arformoterol Tartrate (Brovana (Restricted To Pulmonology/Resp) -) 1 amp NEB RBID [facility] Last Admin: 10/18/18 07:27 Dose: 1 amp Ascorbic Acid (Vitamin C -) 500 mg GT BID [facility] Last Admin: 10/18/18 09:25 Dose: 500 mg Atorvastatin Calcium (Lipitor -) 20 mg GT HS [facility] Last Admin: 10/17/18 22:55 Dose: 20 mg Bacitracin (Bacitracin -) 1 applic TP TID [facility] Last Admin: 10/18/18 09:27 Dose: 1 applic Budesonide (Pulmicort 0.5 Mg Nebulizer -) 1 amp NEB RBID [facility] Last Admin: 10/18/18 07:27 Dose: 1 amp Calcium Carbonate (Calcium Carb Oral Suspension -) 500 mg GT BID [facility] Last Admin: 10/18/18 09:27 Dose: 500 mg Heparin Sodium (Porcine) (Heparin -) 5,000 unit SQ BID [facility] Last Admin: 10/18/18 09:25 Dose: 5,000 unit Piperacillin Sod/Tazobactam (Sod 3.375 gm/ Dextrose) 50 mls @ 100 mls/hr IVPB Q8H-IV [facility]; Protocol Last Admin: 10/18/18 09:23 Dose: 100 mls/hr Lactulose (Cephulac (Oral Use)) 10 gm GT DAILY [facility] Last Admin: 10/18/18 09:25 Dose: 10 gm Metoclopramide HCl (Reglan Oral Solution -) 5 mg GT DAILY [facility] Last Admin: 10/18/18 09:26 Dose: 5 mg Metoprolol Succinate (Toprol Xl -) 75 mg PO BID [facility] Last Admin: 10/18/18 09:24 Dose: 75 mg Potassium Chloride (Potassium Chloride Oral Liquid) 40 meq PO BID [facility] Last Admin: 10/18/18 09:24 Dose: 40 meq - Objective Vital Signs: Vital Signs Temperature 98.6 F 10/18/18 08:24 Pulse Rate 78 10/18/18 08:24 Respiratory Rate 22 H 10/18/18 08:24 Blood Pressure 171/85 H 10/18/18 08:24 O2 Sat by Pulse Oximetry (%) 97 10/18/18 08:24 Constitutional: Yes: Well Nourished, Calm Eyes: Yes: WNL HENT: Yes: WNL Neck: Yes: WNL Cardiovascular: Yes: Regular Rate and Rhythm, S1, S2 Respiratory: Yes: Rhonchi (FEW RHONCHI) Gastrointestinal: Yes: Normal Bowel Sounds, Soft Extremities: Yes: WNL Edema: No Labs: Problem List - Problems (1) COPD exacerbation Code(s): J44.1 - CHRONIC OBSTRUCTIVE PULMONARY DISEASE W (ACUTE) EXACERBATION (2) Scoliosis deformity of spine Code(s): M41.9 - SCOLIOSIS, UNSPECIFIED (3) Anoxic brain injury Code(s): G93.1 - ANOXIC BRAIN DAMAGE, NOT ELSEWHERE CLASSIFIED (4) Aspiration pneumonia Code(s): J69.0 - PNEUMONITIS DUE TO INHALATION OF FOOD AND VOMIT (5) Cerebral palsy Code(s): G80.9 - CEREBRAL PALSY, UNSPECIFIED (6) Functional quadriplegia Code(s): R53.2 - FUNCTIONAL QUADRIPLEGIA (7) Hypoxia Code(s): R09.02 - HYPOXEMIA (8) Seizure disorder Code(s): G40.909 - EPILEPSY, UNSP, NOT INTRACTABLE, WITHOUT STATUS EPILEPTICUS (9) Acute on chronic respiratory failure with hypoxia and hypercapnia Code(s): J96.21 - ACUTE AND CHRONIC RESPIRATORY FAILURE WITH HYPOXIA; J96.22 - ACUTE AND CHRONIC RESPIRATORY FAILURE WITH HYPERCAPNIA Assessment/Plan A/P Acute COPD Exacerbation improved r/o Aspiration Anoxic Brain Injury Seizure Disorder HTN Hyperlipidemia Fever - antibiotics as per id - O2 to keep SpO2 >90% - aspiration precautions - BiPAP to assist in work of breathing as needed - ventimask - DVT prophylaxis DR SUAREZ
--- NOTE | 2018-10-18 11:14 | PN ---
Progress Note, Physician History of Present Illness: seems patient vomited again as per nursing staff on face mask resp effort - Current Medication List Current Medications: Active Medications Amlodipine Besylate (Norvasc -) 10 mg PO DAILY [facility] Last Admin: 10/18/18 10:50 Dose: Not Given Arformoterol Tartrate (Brovana (Restricted To Pulmonology/Resp) -) 1 amp NEB RBID [facility] Last Admin: 10/18/18 07:27 Dose: 1 amp Ascorbic Acid (Vitamin C -) 500 mg GT BID [facility] Last Admin: 10/18/18 09:25 Dose: 500 mg Atorvastatin Calcium (Lipitor -) 20 mg GT HS [facility] Last Admin: 10/17/18 22:55 Dose: 20 mg Bacitracin (Bacitracin -) 1 applic TP TID [facility] Last Admin: 10/18/18 09:27 Dose: 1 applic Budesonide (Pulmicort 0.5 Mg Nebulizer -) 1 amp NEB RBID [facility] Last Admin: 10/18/18 07:27 Dose: 1 amp Calcium Carbonate (Calcium Carb Oral Suspension -) 500 mg GT BID [facility] Last Admin: 10/18/18 09:27 Dose: 500 mg Heparin Sodium (Porcine) (Heparin -) 5,000 unit SQ BID [facility] Last Admin: 10/18/18 09:25 Dose: 5,000 unit Piperacillin Sod/Tazobactam (Sod 3.375 gm/ Dextrose) 50 mls @ 100 mls/hr IVPB Q8H-IV [facility]; Protocol Last Admin: 10/18/18 09:23 Dose: 100 mls/hr Lactulose (Cephulac (Oral Use)) 10 gm GT DAILY [facility] Last Admin: 10/18/18 09:25 Dose: 10 gm Metoclopramide HCl (Reglan Oral Solution -) 5 mg GT DAILY [facility] Last Admin: 10/18/18 09:26 Dose: 5 mg Metoprolol Succinate (Toprol Xl -) 75 mg PO BID [facility] Last Admin: 10/18/18 09:24 Dose: 75 mg Potassium Chloride (Potassium Chloride Oral Liquid) 40 meq PO BID [facility] Last Admin: 10/18/18 09:24 Dose: 40 meq - Objective Vital Signs: Vital Signs Temperature 98.6 F 10/18/18 08:24 Pulse Rate 78 10/18/18 08:24 Respiratory Rate 22 H 10/18/18 08:24 Blood Pressure 171/85 H 10/18/18 08:24 O2 Sat by Pulse Oximetry (%) 97 10/18/18 08:24 Constitutional: Yes: Other Cardiovascular: Yes: S1, S2 Respiratory: Yes: Rhonchi, Other (on face mask resp effort) Gastrointestinal: Yes: Normal Bowel Sounds, Other (peg tube) Musculoskeletal: Yes: WNL Extremities: Yes: WNL Neurological: Yes: Alert, Other Psychiatric: Yes: Other Labs: CBC, BMP 10/17/18 05:47 10/17/18 05:47 INR, PTT INR 1.03 (0.83-1.09) 10/09/18 12:10 Assessment/Plan Problem List - Problems (1) COPD exacerbation Code(s): J44.1 - CHRONIC OBSTRUCTIVE PULMONARY DISEASE W (ACUTE) EXACERBATION (2) Anoxic brain injury Code(s): G93.1 - ANOXIC BRAIN DAMAGE, NOT ELSEWHERE CLASSIFIED (3) Aspiration pneumonia Code(s): J69.0 - PNEUMONITIS DUE TO INHALATION OF FOOD AND VOMIT (4) Cerebral palsy Code(s): G80.9 - CEREBRAL PALSY, UNSPECIFIED (5) Feeding by G-tube Code(s): Z93.1 - GASTROSTOMY STATUS (6) Functional quadriplegia Code(s): R53.2 - FUNCTIONAL QUADRIPLEGIA (7) HLD (hyperlipidemia) Code(s): E78.5 - HYPERLIPIDEMIA, UNSPECIFIED (8) HTN (hypertension) Code(s): I10 - ESSENTIAL (PRIMARY) HYPERTENSION (9) Hypoxia Code(s): R09.02 - HYPOXEMIA (10) Seizure disorder Code(s): G40.909 - EPILEPSY, UNSP, NOT INTRACTABLE, WITHOUT STATUS EPILEPTICUS plan abx if patient vomiting stop feeding close watch resp support rest as per the team
--- NOTE | 2018-10-18 13:52 | PN ---
Progress Note, Physician - Current Medication List Current Medications: Active Medications Amlodipine Besylate (Norvasc -) 10 mg PO DAILY [facility] Last Admin: 10/18/18 10:50 Dose: Not Given Arformoterol Tartrate (Brovana (Restricted To Pulmonology/Resp) -) 1 amp NEB RBID [facility] Last Admin: 10/18/18 07:27 Dose: 1 amp Ascorbic Acid (Vitamin C -) 500 mg GT BID [facility] Last Admin: 10/18/18 09:25 Dose: 500 mg Atorvastatin Calcium (Lipitor -) 20 mg GT HS [facility] Last Admin: 10/17/18 22:55 Dose: 20 mg Bacitracin (Bacitracin -) 1 applic TP TID [facility] Last Admin: 10/18/18 13:41 Dose: 1 applic Budesonide (Pulmicort 0.5 Mg Nebulizer -) 1 amp NEB RBID [facility] Last Admin: 10/18/18 07:27 Dose: 1 amp Calcium Carbonate (Calcium Carb Oral Suspension -) 500 mg GT BID [facility] Last Admin: 10/18/18 09:27 Dose: 500 mg Heparin Sodium (Porcine) (Heparin -) 5,000 unit SQ BID [facility] Last Admin: 10/18/18 09:25 Dose: 5,000 unit Piperacillin Sod/Tazobactam (Sod 3.375 gm/ Dextrose) 50 mls @ 100 mls/hr IVPB Q8H-IV [facility]; Protocol Last Admin: 10/18/18 09:23 Dose: 100 mls/hr Lactulose (Cephulac (Oral Use)) 10 gm GT DAILY [facility] Last Admin: 10/18/18 09:25 Dose: 10 gm Metoclopramide HCl (Reglan Oral Solution -) 5 mg GT DAILY [facility] Last Admin: 10/18/18 09:26 Dose: 5 mg Metoprolol Succinate (Toprol Xl -) 75 mg PO BID [facility] Last Admin: 10/18/18 09:24 Dose: 75 mg Potassium Chloride (Potassium Chloride Oral Liquid) 40 meq PO BID [facility] Last Admin: 10/18/18 09:24 Dose: 40 meq - Objective Vital Signs: Vital Signs Temperature 98.5 F 10/18/18 13:36 Pulse Rate 98 H 10/18/18 13:36 Respiratory Rate 26 H 10/18/18 13:36 Blood Pressure 158/92 10/18/18 13:36 O2 Sat by Pulse Oximetry (%) 97 10/18/18 08:24 Constitutional: Yes: No Distress HENT: Yes: Atraumatic Neck: Yes: Supple Cardiovascular: Yes: Regular Rate and Rhythm Respiratory: Yes: Rhonchi Gastrointestinal: Yes: Normal Bowel Sounds, Other (peg in place) Extremities: Yes: Other (contracted) Neurological: Yes: Other (awake) Labs: CBC, BMP 10/17/18 05:47 10/17/18 05:47 INR, PTT INR 1.03 (0.83-1.09) 10/09/18 12:10 Problem List - Problems (1) COPD exacerbation Assessment/Plan: on venti mask duo nebs prn Code(s): J44.1 - CHRONIC OBSTRUCTIVE PULMONARY DISEASE W (ACUTE) EXACERBATION (2) Anoxic brain injury Code(s): G93.1 - ANOXIC BRAIN DAMAGE, NOT ELSEWHERE CLASSIFIED (3) Aspiration pneumonia Assessment/Plan: on iv abx now aspiration precautins Code(s): J69.0 - PNEUMONITIS DUE TO INHALATION OF FOOD AND VOMIT (4) Cerebral palsy Code(s): G80.9 - CEREBRAL PALSY, UNSPECIFIED (5) Feeding by G-tube Assessment/Plan: on tube feeds Code(s): Z93.1 - GASTROSTOMY STATUS (6) Functional quadriplegia Code(s): R53.2 - FUNCTIONAL QUADRIPLEGIA (7) HLD (hyperlipidemia) Code(s): E78.5 - HYPERLIPIDEMIA, UNSPECIFIED Qualifiers: Hyperlipidemia type: pure hypercholesterolemia Qualified Code(s): E78.00 - Pure hypercholesterolemia, unspecified; E78.0 - Pure hypercholesterolemia (8) HTN (hypertension) Assessment/Plan: on meds monitor...bp stabilizing now Code(s): I10 - ESSENTIAL (PRIMARY) HYPERTENSION Qualifiers: Hypertension type: essential hypertension Qualified Code(s): I10 - Essential (primary) hypertension (9) Hypoxia Code(s): R09.02 - HYPOXEMIA (10) Seizure disorder Code(s): G40.909 - EPILEPSY, UNSP, NOT INTRACTABLE, WITHOUT STATUS EPILEPTICUS
--- NOTE | 2018-10-18 13:56 | PN ---
Progress Note, Physician History of Present Illness: Recurrent aspiration, remains on VM and abx for recurrent aspiration. BP improved after beta mara uptitration. - Current Medication List Current Medications: Active Medications Amlodipine Besylate (Norvasc -) 10 mg PO DAILY [facility] Last Admin: 10/18/18 10:50 Dose: Not Given Arformoterol Tartrate (Brovana (Restricted To Pulmonology/Resp) -) 1 amp NEB RBID [facility] Last Admin: 10/18/18 07:27 Dose: 1 amp Ascorbic Acid (Vitamin C -) 500 mg GT BID [facility] Last Admin: 10/18/18 09:25 Dose: 500 mg Atorvastatin Calcium (Lipitor -) 20 mg GT HS [facility] Last Admin: 10/17/18 22:55 Dose: 20 mg Bacitracin (Bacitracin -) 1 applic TP TID [facility] Last Admin: 10/18/18 13:41 Dose: 1 applic Budesonide (Pulmicort 0.5 Mg Nebulizer -) 1 amp NEB RBID [facility] Last Admin: 10/18/18 07:27 Dose: 1 amp Calcium Carbonate (Calcium Carb Oral Suspension -) 500 mg GT BID [facility] Last Admin: 10/18/18 09:27 Dose: 500 mg Heparin Sodium (Porcine) (Heparin -) 5,000 unit SQ BID [facility] Last Admin: 10/18/18 09:25 Dose: 5,000 unit Piperacillin Sod/Tazobactam (Sod 3.375 gm/ Dextrose) 50 mls @ 100 mls/hr IVPB Q8H-IV [facility]; Protocol Last Admin: 10/18/18 09:23 Dose: 100 mls/hr Lactulose (Cephulac (Oral Use)) 10 gm GT DAILY [facility] Last Admin: 10/18/18 09:25 Dose: 10 gm Metoclopramide HCl (Reglan Oral Solution -) 5 mg GT DAILY [facility] Last Admin: 10/18/18 09:26 Dose: 5 mg Metoprolol Succinate (Toprol Xl -) 75 mg PO BID [facility] Last Admin: 10/18/18 09:24 Dose: 75 mg Potassium Chloride (Potassium Chloride Oral Liquid) 40 meq PO BID [facility] Last Admin: 10/18/18 09:24 Dose: 40 meq - Objective Vital Signs: Vital Signs Temperature 98.5 F 10/18/18 13:36 Pulse Rate 98 H 10/18/18 13:36 Respiratory Rate 26 H 10/18/18 13:36 Blood Pressure 158/92 10/18/18 13:36 O2 Sat by Pulse Oximetry (%) 97 10/18/18 08:24 Constitutional: Yes: No Distress, Calm Neck: Yes: Supple Cardiovascular: Yes: Regular Rate and Rhythm Respiratory: Yes: Regular, Diminished, On Venti-Mask Gastrointestinal: Yes: Soft, Hypoactive Bowel Sounds Edema: No Labs: CBC, BMP 10/17/18 05:47 10/17/18 05:47 INR, PTT INR 1.03 (0.83-1.09) 10/09/18 12:10 Assessment/Plan Problems (1) COPD exacerbation Code(s): J44.1 - CHRONIC OBSTRUCTIVE PULMONARY DISEASE W (ACUTE) EXACERBATION (2) Anoxic brain injury Code(s): G93.1 - ANOXIC BRAIN DAMAGE, NOT ELSEWHERE CLASSIFIED (3) Aspiration pneumonia Code(s): J69.0 - PNEUMONITIS DUE TO INHALATION OF FOOD AND VOMIT (4) Cerebral palsy Code(s): G80.9 - CEREBRAL PALSY, UNSPECIFIED (5) Feeding by G-tube Code(s): Z93.1 - GASTROSTOMY STATUS (6) Functional quadriplegia Code(s): R53.2 - FUNCTIONAL QUADRIPLEGIA (7) HLD (hyperlipidemia) Code(s): E78.5 - HYPERLIPIDEMIA, UNSPECIFIED (8) HTN (hypertension) Code(s): I10 - ESSENTIAL (PRIMARY) HYPERTENSION (9) Hypoxia Code(s): R09.02 - HYPOXEMIA (10) Seizure disorder Code(s): G40.909 - EPILEPSY, UNSP, NOT INTRACTABLE, WITHOUT STATUS EPILEPTICUS 1. COPD exacerbation 2. 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 Recurrent aspiration pneumonia 4. HTN BP not at goal control 5. Hyperlipidemia 6. Seizure PLAN: 1. Wean FIO2 and NIPPV as tolerated 2. Aspiration precautions, antibiotic course per id 3. Respiratory treatment 4. DVT prophylaxis 5. Hold enteral feeds if emesis 6. Continue Norvasc 5 mg QD, Lipitor 20 mg QHS and Lopressor 50 mg BID via G tube 7. K supplement 8. D/c telemetry monitoring
[2018-10-18] MEDS: ATORVASTATIN CA 20 MG TABLET (FP) GT SCH (23:19)
[2018-10-19] MEDS ORDERED: PIPERACILLIN/TAZOBACTAM 3.375 GM VIAL IVPB ONE ×3 (03:34→17:06)
[2018-10-19] MEDS ORDERED: DEXTROSE 5%-WATER - 50 ML IVPB ONE ×3 (03:34→17:06)
[2018-10-19] MEDS: PIPERACILLIN/TAZOB 3.375 GM 3.375 GM in DEXTROSE 5%-WATER - 50 ML IVPB SCH ×3 (04:37→17:20)
[2018-10-19] MEDS: BUDESONIDE 0.5 MG/2 ML INH SUSP VIAL NEB SCH ×2 (08:00→20:59)
[2018-10-19] MEDS: ARFORMOTEROL TARTRATE 15 MCG/2 ML VIAL NEB SCH ×2 (08:00→20:59)
[2018-10-19] MEDS ORDERED: PT OWN MED DRAWER 7, Y5N ONE ×2 (08:05→11:54)
[2018-10-19] MEDS: BACITRACIN 15 GM TUBE TOPICAL OINTMENT TP SCH ×3 (09:39→21:56)
[2018-10-19] MEDS: amLODIPine BESYLATE 10 MG TABLET (FP) PO SCH (09:41)
[2018-10-19] MEDS: HEPARIN NA (PORCINE) 5,000 UNITS/ML 1ML VIAL SQ SCH ×2 (09:41→21:56)
[2018-10-19] MEDS: metoPROLOL SUCCINATE 25 MG TAB.SR.24H (FP) PO SCH ×2 (09:41→21:50)
[2018-10-19] MEDS: LACTULOSE 20 GM/30 ML UDC (FOR ORAL USE ONLY) GT SCH (09:41)
[2018-10-19] MEDS: ASCORBIC ACID 500 MG TABLET (FP) GT SCH ×2 (09:41→21:50)
[2018-10-19] MEDS: CALCIUM CARBONATE SUSPENSION - 500 MG/5 ML ML GT SCH ×2 (09:42→21:56)
[2018-10-19] MEDS: POTASSIUM CHLORIDE ORAL LIQUID 20 MEQ/15 ML PO SCH ×2 (09:43→21:57)
--- NOTE | 2018-10-19 09:54 | PN ---
Progress Note, Physician Chief Complaint: Pt on ventimask; eyes open. History of Present Illness: The patient is a 67-year-old female, with a past medical history of MR, anoxic brain injury, aspiration pna, UTI, CVA, COPD, HTN, HLD, seizure, PEG tube in place, on bipap at night, who was sent to the ED from [facility] for hypoxia. laundry aide is at the bedside and is providing history. HPI is limited due to patients clinical condition. - - Current Medication List Current Medications: Active Medications Amlodipine Besylate (Norvasc -) 10 mg PO DAILY [facility] Last Admin: 10/19/18 09:41 Dose: 10 mg Arformoterol Tartrate (Brovana (Restricted To Pulmonology/Resp) -) 1 amp NEB RBID [facility] Last Admin: 10/18/18 21:16 Dose: 1 amp Ascorbic Acid (Vitamin C -) 500 mg GT BID [facility] Last Admin: 10/19/18 09:41 Dose: 500 mg Atorvastatin Calcium (Lipitor -) 20 mg GT HS [facility] Last Admin: 10/18/18 23:19 Dose: 20 mg Bacitracin (Bacitracin -) 1 applic TP TID [facility] Last Admin: 10/19/18 09:39 Dose: 1 applic Budesonide (Pulmicort 0.5 Mg Nebulizer -) 1 amp NEB RBID [facility] Last Admin: 10/18/18 21:16 Dose: Not Given Calcium Carbonate (Calcium Carb Oral Suspension -) 500 mg GT BID [facility] Last Admin: 10/19/18 09:42 Dose: 500 mg Heparin Sodium (Porcine) (Heparin -) 5,000 unit SQ BID [facility] Last Admin: 10/19/18 09:41 Dose: 5,000 unit Piperacillin Sod/Tazobactam (Sod 3.375 gm/ Dextrose) 50 mls @ 100 mls/hr IVPB Q8H-IV [facility]; Protocol Last Admin: 10/19/18 09:39 Dose: 100 mls/hr Lactulose (Cephulac (Oral Use)) 10 gm GT DAILY [facility] Last Admin: 10/19/18 09:41 Dose: 10 gm Metoclopramide HCl (Reglan Oral Solution -) 5 mg GT DAILY [facility] Last Admin: 10/18/18 09:26 Dose: 5 mg Metoprolol Succinate (Toprol Xl -) 75 mg PO BID [facility] Last Admin: 10/19/18 09:41 Dose: 75 mg Potassium Chloride (Potassium Chloride Oral Liquid) 40 meq PO BID [facility] Last Admin: 10/19/18 09:43 Dose: Not Given - Objective Vital Signs: Vital Signs Temperature 98.4 F 10/19/18 09:34 Pulse Rate 79 10/19/18 09:34 Respiratory Rate 20 10/19/18 09:34 Blood Pressure 153/91 10/19/18 09:34 O2 Sat by Pulse Oximetry (%) 98 10/19/18 09:04 Constitutional: Yes: Other (contracted;; extremity deformities) Eyes: Yes: WNL HENT: Yes: WNL Neck: Yes: Decreased ROM Cardiovascular: Yes: S1, S2, S4. No: JVD Respiratory: Yes: Diminished Gastrointestinal: Yes: Soft Genitourinary: Yes: Anuria Breast(s): Yes: Skin Changes, Other Musculoskeletal: Yes: Muscle Weakness Extremities: Yes: Cool, Shortened Edema: No Peripheral Pulses WNL: Yes Integumentary: Yes: WNL Neurological: Yes: Weakness, Other Psychiatric: Yes: Other Labs: CBC, BMP 10/17/18 05:47 10/17/18 05:47 INR, PTT INR 1.03 (0.83-1.09) 10/09/18 12:10 Abnormal Lab Results 10/20/18 10/20/18 05:32 05:32 WBC 16.8 H Absolute Neuts (auto) 14.0 H Neutrophils % 83.0 H Lymphocytes % 7.2 L Nucleated RBC % 1 H Sodium 133 L Potassium 3.2 L Chloride 85 L Carbon Dioxide 39 H Creatinine 0.3 L Random Glucose 121 H Alkaline Phosphatase 306 H Albumin 2.9 L - ....Imaging Chest X-ray: Image Reviewed EKG: Image Reviewed Problem List - Problems (1) PEG (percutaneous endoscopic gastrostomy) status Code(s): Z93.1 - GASTROSTOMY STATUS (2) Scoliosis deformity of spine Code(s): M41.9 - SCOLIOSIS, UNSPECIFIED (3) Anoxic brain injury Code(s): G93.1 - ANOXIC BRAIN DAMAGE, NOT ELSEWHERE CLASSIFIED (4) Aspiration pneumonia Code(s): J69.0 - PNEUMONITIS DUE TO INHALATION OF FOOD AND VOMIT (5) Cerebral palsy Code(s): G80.9 - CEREBRAL PALSY, UNSPECIFIED (6) HLD (hyperlipidemia) Assessment/Plan: f/u lipid profile TSH. Code(s): E78.5 - HYPERLIPIDEMIA, UNSPECIFIED Qualifiers: Hyperlipidemia type: pure hypercholesterolemia Qualified Code(s): E78.00 - Pure hypercholesterolemia, unspecified; E78.0 - Pure hypercholesterolemia (7) HTN (hypertension) Assessment/Plan: On amlodipine 10 mg/d and metoprolol ER 75 mg bid. F/u HR and BP serially. If BP elevates again, would consider adding a thiazide diuretic. Code(s): I10 - ESSENTIAL (PRIMARY) HYPERTENSION Qualifiers: Hypertension type: essential hypertension Qualified Code(s): I10 - Essential (primary) hypertension (8) Hypoxia Code(s): R09.02 - HYPOXEMIA (9) Seizure disorder Code(s): G40.909 - EPILEPSY, UNSP, NOT INTRACTABLE, WITHOUT STATUS EPILEPTICUS (10) Acute on chronic respiratory failure with hypoxia and hypercapnia Code(s): J96.21 - ACUTE AND CHRONIC RESPIRATORY FAILURE WITH HYPOXIA; J96.22 - ACUTE AND CHRONIC RESPIRATORY FAILURE WITH HYPERCAPNIA
[2018-10-19] MEDS: METOCLOPRAMIDE HCL 5 MG/5 ML UNIT DOSE CUP GT SCH (11:55)
--- NOTE | 2018-10-19 12:56 | PN ---
Progress Note (short form) - Note Progress Note: Awake. NAD on VM O2. No acute events overnight. Intake & Output 10/16/18 10/17/18 10/18/18 10/19/18 23:59 23:59 23:59 23:59 Intake Total 80 760 800 650 Balance 80 760 800 650 Last Vital Signs Temp Pulse Resp BP Pulse Ox 98.4 F 79 20 153/91 98 10/19/18 09:34 10/19/18 09:34 10/19/18 09:34 10/19/18 09:34 10/19/18 10:00 Active Medications Amlodipine Besylate (Norvasc -) 10 mg PO DAILY [facility] Last Admin: 10/19/18 09:41 Dose: 10 mg Arformoterol Tartrate (Brovana (Restricted To Pulmonology/Resp) -) 1 amp NEB RBID [facility] Last Admin: 10/18/18 21:16 Dose: 1 amp Ascorbic Acid (Vitamin C -) 500 mg GT BID [facility] Last Admin: 10/19/18 09:41 Dose: 500 mg Atorvastatin Calcium (Lipitor -) 20 mg GT HS [facility] Last Admin: 10/18/18 23:19 Dose: 20 mg Bacitracin (Bacitracin -) 1 applic TP TID [facility] Last Admin: 10/19/18 09:39 Dose: 1 applic Budesonide (Pulmicort 0.5 Mg Nebulizer -) 1 amp NEB RBID [facility] Last Admin: 10/18/18 21:16 Dose: Not Given Calcium Carbonate (Calcium Carb Oral Suspension -) 500 mg GT BID [facility] Last Admin: 10/19/18 09:42 Dose: 500 mg Heparin Sodium (Porcine) (Heparin -) 5,000 unit SQ BID [facility] Last Admin: 10/19/18 09:41 Dose: 5,000 unit Piperacillin Sod/Tazobactam (Sod 3.375 gm/ Dextrose) 50 mls @ 100 mls/hr IVPB Q8H-IV [facility]; Protocol Last Admin: 10/19/18 09:39 Dose: 100 mls/hr Lactulose (Cephulac (Oral Use)) 10 gm GT DAILY [facility] Last Admin: 10/19/18 09:41 Dose: 10 gm Metoclopramide HCl (Reglan Oral Solution -) 5 mg GT DAILY [facility] Last Admin: 10/19/18 11:55 Dose: 5 mg Metoprolol Succinate (Toprol Xl -) 75 mg PO BID [facility] Last Admin: 10/19/18 09:41 Dose: 75 mg Potassium Chloride (Potassium Chloride Oral Liquid) 40 meq PO BID [facility] Last Admin: 10/19/18 09:43 Dose: Not Given Constitutional: Yes: NAD on VM O2 Eyes: Yes: WNL HENT: Yes: WNL Neck: Yes: WNL Cardiovascular: Yes: Regular Rate and Rhythm, S1, S2 Respiratory: Yes: Bilateral scattered rhonchi, no wheeze Gastrointestinal: Yes: Normal Bowel Sounds, Soft Extremities: Yes: WNL Edema: No Labs: Laboratory Results - last 24 hr 10/19/18 11:10 Triglycerides 96 Cholesterol 213 H Total LDL Cholesterol 81 HDL Cholesterol 107 H TSH 3.37 Problem List - Problems (1) COPD exacerbation Code(s): J44.1 - CHRONIC OBSTRUCTIVE PULMONARY DISEASE W (ACUTE) EXACERBATION (2) Scoliosis deformity of spine Code(s): M41.9 - SCOLIOSIS, UNSPECIFIED (3) Anoxic brain injury Code(s): G93.1 - ANOXIC BRAIN DAMAGE, NOT ELSEWHERE CLASSIFIED (4) Aspiration pneumonia Code(s): J69.0 - PNEUMONITIS DUE TO INHALATION OF FOOD AND VOMIT (5) Cerebral palsy Code(s): G80.9 - CEREBRAL PALSY, UNSPECIFIED (6) Functional quadriplegia Code(s): R53.2 - FUNCTIONAL QUADRIPLEGIA (7) Hypoxia Code(s): R09.02 - HYPOXEMIA (8) Seizure disorder Code(s): G40.909 - EPILEPSY, UNSP, NOT INTRACTABLE, WITHOUT STATUS EPILEPTICUS (9) Acute on chronic respiratory failure with hypoxia and hypercapnia Code(s): J96.21 - ACUTE AND CHRONIC RESPIRATORY FAILURE WITH HYPOXIA; J96.22 - ACUTE AND CHRONIC RESPIRATORY FAILURE WITH HYPERCAPNIA Assessment/Plan Acute COPD Exacerbation improved r/o Aspiration Anoxic Brain Injury Seizure Disorder HTN Hyperlipidemia Fever ABX per ID O2 to keep SpO2 >90% Aspiration precautions NIPPV as needed Trial of NC O2 Dr Bella
--- NOTE | 2018-10-19 14:26 | PN ---
Progress Note, Physician History of Present Illness: Pt seen and examined, chart reviewed. She is currently afebrile, without distress. No new events. - Current Medication List Current Medications: Active Medications Amlodipine Besylate (Norvasc -) 10 mg PO DAILY [facility] Last Admin: 10/19/18 09:41 Dose: 10 mg Arformoterol Tartrate (Brovana (Restricted To Pulmonology/Resp) -) 1 amp NEB RBID [facility] Last Admin: 10/19/18 08:00 Dose: 1 amp Ascorbic Acid (Vitamin C -) 500 mg GT BID [facility] Last Admin: 10/19/18 09:41 Dose: 500 mg Atorvastatin Calcium (Lipitor -) 20 mg GT HS [facility] Last Admin: 10/18/18 23:19 Dose: 20 mg Bacitracin (Bacitracin -) 1 applic TP TID [facility] Last Admin: 10/19/18 09:39 Dose: 1 applic Budesonide (Pulmicort 0.5 Mg Nebulizer -) 1 amp NEB RBID [facility] Last Admin: 10/19/18 08:00 Dose: 1 amp Calcium Carbonate (Calcium Carb Oral Suspension -) 500 mg GT BID [facility] Last Admin: 10/19/18 09:42 Dose: 500 mg Heparin Sodium (Porcine) (Heparin -) 5,000 unit SQ BID [facility] Last Admin: 10/19/18 09:41 Dose: 5,000 unit Piperacillin Sod/Tazobactam (Sod 3.375 gm/ Dextrose) 50 mls @ 100 mls/hr IVPB Q8H-IV [facility]; Protocol Last Admin: 10/19/18 09:39 Dose: 100 mls/hr Lactulose (Cephulac (Oral Use)) 10 gm GT DAILY [facility] Last Admin: 10/19/18 09:41 Dose: 10 gm Metoclopramide HCl (Reglan Oral Solution -) 5 mg GT DAILY [facility] Last Admin: 10/19/18 11:55 Dose: 5 mg Metoprolol Succinate (Toprol Xl -) 75 mg PO BID [facility] Last Admin: 10/19/18 09:41 Dose: 75 mg Potassium Chloride (Potassium Chloride Oral Liquid) 40 meq PO BID [facility] Last Admin: 10/19/18 09:43 Dose: Not Given - Objective Vital Signs: Vital Signs Temperature 98.4 F 10/19/18 09:34 Pulse Rate 79 10/19/18 09:34 Respiratory Rate 20 10/19/18 09:34 Blood Pressure 153/91 10/19/18 09:34 O2 Sat by Pulse Oximetry (%) 98 10/19/18 12:58 Constitutional: Yes: No Distress Cardiovascular: Yes: Regular Rate and Rhythm Respiratory: Yes: Regular, On Nasal O2 Gastrointestinal: Yes: Normal Bowel Sounds, Soft Genitourinary: Yes: WNL Musculoskeletal: Yes: Other (contracted) Integumentary: Yes: WNL Labs: CBC, BMP 10/17/18 05:47 10/17/18 05:47 INR, PTT INR 1.03 (0.83-1.09) 10/09/18 12:10 Microbiology 10/09/18 12:10 Blood - Peripheral Venous Blood Culture - Final NO GROWTH AFTER 5 DAYS INCUBATION 10/09/18 12:10 Blood - Peripheral Venous Blood Culture - Final Staphylococcus Epidermidis 10/09/18 16:10 Urine - Urine Clean Catch Urine Culture - Final Pseudomonas Aeruginosa - ....Imaging Chest X-ray: Report Reviewed Problem List - Problems (1) COPD exacerbation Code(s): J44.1 - CHRONIC OBSTRUCTIVE PULMONARY DISEASE W (ACUTE) EXACERBATION (2) PEG (percutaneous endoscopic gastrostomy) status Code(s): Z93.1 - GASTROSTOMY STATUS (3) Acute on chronic respiratory failure with hypoxia and hypercapnia Code(s): J96.21 - ACUTE AND CHRONIC RESPIRATORY FAILURE WITH HYPOXIA; J96.22 - ACUTE AND CHRONIC RESPIRATORY FAILURE WITH HYPERCAPNIA (4) Anoxic brain injury Code(s): G93.1 - ANOXIC BRAIN DAMAGE, NOT ELSEWHERE CLASSIFIED (5) Aspiration pneumonia Code(s): J69.0 - PNEUMONITIS DUE TO INHALATION OF FOOD AND VOMIT (6) Cerebral palsy Code(s): G80.9 - CEREBRAL PALSY, UNSPECIFIED (7) Anoxic brain damage Code(s): G93.1 - ANOXIC BRAIN DAMAGE, NOT ELSEWHERE CLASSIFIED (8) Functional quadriplegia Code(s): R53.2 - FUNCTIONAL QUADRIPLEGIA (9) HLD (hyperlipidemia) Code(s): E78.5 - HYPERLIPIDEMIA, UNSPECIFIED Qualifiers: Hyperlipidemia type: pure hypercholesterolemia Qualified Code(s): E78.00 - Pure hypercholesterolemia, unspecified; E78.0 - Pure hypercholesterolemia (10) HTN (hypertension) Code(s): I10 - ESSENTIAL (PRIMARY) HYPERTENSION Qualifiers: Hypertension type: essential hypertension Qualified Code(s): I10 - Essential (primary) hypertension (11) Seizure disorder Code(s): G40.909 - EPILEPSY, UNSP, NOT INTRACTABLE, WITHOUT STATUS EPILEPTICUS Assessment/Plan PNA Recurrent Aspiration Mental retardation Cerebral palsy Functional Quadriplegia Seizure d.o. -- currently without respiratory distress, remains afebrile -- continue antibiotics -- aspiration precautions - supplemental O2 as needed continue monitor
--- NOTE | 2018-10-19 18:56 | PN ---
Progress Note, Physician History of Present Illness: stable - Current Medication List Current Medications: Active Medications Amlodipine Besylate (Norvasc -) 10 mg PO DAILY [facility] Last Admin: 10/19/18 09:41 Dose: 10 mg Arformoterol Tartrate (Brovana (Restricted To Pulmonology/Resp) -) 1 amp NEB RBID [facility] Last Admin: 10/19/18 08:00 Dose: 1 amp Ascorbic Acid (Vitamin C -) 500 mg GT BID [facility] Last Admin: 10/19/18 09:41 Dose: 500 mg Atorvastatin Calcium (Lipitor -) 20 mg GT HS [facility] Last Admin: 10/18/18 23:19 Dose: 20 mg Bacitracin (Bacitracin -) 1 applic TP TID [facility] Last Admin: 10/19/18 14:55 Dose: 1 applic Budesonide (Pulmicort 0.5 Mg Nebulizer -) 1 amp NEB RBID [facility] Last Admin: 10/19/18 08:00 Dose: 1 amp Calcium Carbonate (Calcium Carb Oral Suspension -) 500 mg GT BID [facility] Last Admin: 10/19/18 09:42 Dose: 500 mg Heparin Sodium (Porcine) (Heparin -) 5,000 unit SQ BID [facility] Last Admin: 10/19/18 09:41 Dose: 5,000 unit Piperacillin Sod/Tazobactam (Sod 3.375 gm/ Dextrose) 50 mls @ 100 mls/hr IVPB Q8H-IV [facility]; Protocol Last Admin: 10/19/18 17:20 Dose: 100 mls/hr Lactulose (Cephulac (Oral Use)) 10 gm GT DAILY [facility] Last Admin: 10/19/18 09:41 Dose: 10 gm Metoclopramide HCl (Reglan Oral Solution -) 5 mg GT DAILY [facility] Last Admin: 10/19/18 11:55 Dose: 5 mg Metoprolol Succinate (Toprol Xl -) 75 mg PO BID [facility] Last Admin: 10/19/18 09:41 Dose: 75 mg Potassium Chloride (Potassium Chloride Oral Liquid) 40 meq PO BID [facility] Last Admin: 10/19/18 09:43 Dose: Not Given - Objective Vital Signs: Vital Signs Temperature 98.1 F 10/19/18 18:00 Pulse Rate 94 H 10/19/18 18:00 Respiratory Rate 22 H 10/19/18 18:00 Blood Pressure 146/78 10/19/18 18:00 O2 Sat by Pulse Oximetry (%) 98 10/19/18 12:58 Constitutional: Yes: No Distress HENT: Yes: Atraumatic Cardiovascular: Yes: Regular Rate and Rhythm Respiratory: Yes: Rhonchi Gastrointestinal: Yes: Normal Bowel Sounds, Other (peg in place) Edema: No Labs: CBC, BMP 10/17/18 05:47 10/17/18 05:47 INR, PTT INR 1.03 (0.83-1.09) 10/09/18 12:10 Problem List - Problems (1) COPD exacerbation Assessment/Plan: on venti mask duo nebs prn Code(s): J44.1 - CHRONIC OBSTRUCTIVE PULMONARY DISEASE W (ACUTE) EXACERBATION (2) Anoxic brain injury Code(s): G93.1 - ANOXIC BRAIN DAMAGE, NOT ELSEWHERE CLASSIFIED (3) Aspiration pneumonia Assessment/Plan: on iv abx now aspiration precautins Code(s): J69.0 - PNEUMONITIS DUE TO INHALATION OF FOOD AND VOMIT (4) Cerebral palsy Code(s): G80.9 - CEREBRAL PALSY, UNSPECIFIED (5) Feeding by G-tube Assessment/Plan: on tube feeds Code(s): Z93.1 - GASTROSTOMY STATUS (6) Functional quadriplegia Code(s): R53.2 - FUNCTIONAL QUADRIPLEGIA (7) HLD (hyperlipidemia) Code(s): E78.5 - HYPERLIPIDEMIA, UNSPECIFIED Qualifiers: Hyperlipidemia type: pure hypercholesterolemia Qualified Code(s): E78.00 - Pure hypercholesterolemia, unspecified; E78.0 - Pure hypercholesterolemia (8) HTN (hypertension) Assessment/Plan: on meds monitor...bp stabilizing now Code(s): I10 - ESSENTIAL (PRIMARY) HYPERTENSION Qualifiers: Hypertension type: essential hypertension Qualified Code(s): I10 - Essential (primary) hypertension (9) Hypoxia Code(s): R09.02 - HYPOXEMIA (10) Seizure disorder Assessment/Plan: on meds stable Code(s): G40.909 - EPILEPSY, UNSP, NOT INTRACTABLE, WITHOUT STATUS EPILEPTICUS
[2018-10-19] MEDS: ATORVASTATIN CA 20 MG TABLET (FP) GT SCH (21:50)
[2018-10-20] MEDS ORDERED: DEXTROSE 5%-WATER - 50 ML IVPB ONE ×3 (03:38→17:04)
[2018-10-20] MEDS ORDERED: PIPERACILLIN/TAZOBACTAM 3.375 GM VIAL IVPB ONE ×3 (03:38→17:04)
[2018-10-20] MEDS: PIPERACILLIN/TAZOB 3.375 GM 3.375 GM in DEXTROSE 5%-WATER - 50 ML IVPB SCH ×3 (03:39→17:21)
[2018-10-20] MEDS: BACITRACIN 15 GM TUBE TOPICAL OINTMENT TP SCH ×3 (06:49→22:14)
[2018-10-20 07:37] LABS: BASO % 0.4 % (0-2.0); EOS % 1.3 % (0-4.5); HEMATOCRIT 39.3 % (32.4-45.2); HEMOGLOBIN 13.5 GM/dL (10.7-15.3); LYMPH % 7.2 % (8-40); MCH 30.5 pg (25.7-33.7); MCHC 34.3 g/dl (32.0-36.0); MEAN CELL VOLUME 88.7 fl (80-96); MEAN PLT VOLUME 7.7 fl (7.5-11.1); MONO % 8.1 % (3.8-10.2); PLATELET COUNT 392 K/MM3 (134-434); RBC 4.43 M/mm3 (3.60-5.2); RDW 13.8 % (11.6-15.6); WHITE BLOOD COUNT 16.8 K/mm3 (4.0-10.0)
[2018-10-20 07:49] LABS: ALBUMIN 2.9 g/dl (3.4-5.0); BILIRUBIN,TOTAL 0.3 mg/dL (0.2-1); BLOOD UREA NITROGEN 11.3 mg/dL (7-18); CALCIUM 9.2 mg/dL (8.5-10.1); CREATININE 0.3 mg/dL (0.55-1.3); POTASSIUM 3.2 mmol/L (3.5-5.1); TOT PROT 7.2 g/dl (6.4-8.2)
[2018-10-20] MEDS: BUDESONIDE 0.5 MG/2 ML INH SUSP VIAL NEB SCH ×2 (09:10→21:16)
[2018-10-20] MEDS: ARFORMOTEROL TARTRATE 15 MCG/2 ML VIAL NEB SCH ×2 (09:10→21:16)
[2018-10-20] MEDS: HEPARIN NA (PORCINE) 5,000 UNITS/ML 1ML VIAL SQ SCH ×2 (09:25→22:13)
[2018-10-20] MEDS: POTASSIUM CHLORIDE ORAL LIQUID 20 MEQ/15 ML PO SCH ×2 (09:25→22:13)
[2018-10-20] MEDS: CALCIUM CARBONATE SUSPENSION - 500 MG/5 ML ML GT SCH ×2 (09:26→22:14)
[2018-10-20] MEDS: METOCLOPRAMIDE HCL 5 MG/5 ML UNIT DOSE CUP GT SCH (09:26)
[2018-10-20] MEDS: metoPROLOL SUCCINATE 25 MG TAB.SR.24H (FP) PO SCH ×2 (09:27→22:11)
[2018-10-20] MEDS: ASCORBIC ACID 500 MG TABLET (FP) GT SCH ×2 (09:27→22:11)
[2018-10-20] MEDS: amLODIPine BESYLATE 10 MG TABLET (FP) PO SCH (09:27)
[2018-10-20] MEDS: LACTULOSE 20 GM/30 ML UDC (FOR ORAL USE ONLY) GT SCH (09:33)
--- NOTE | 2018-10-20 14:22 | PN ---
Progress Note (short form) - Note Progress Note: Awake. NAD on NC O2. No acute events overnight. Intake & Output 10/17/18 10/18/18 10/19/18 10/20/18 23:59 23:59 23:59 23:59 Intake Total 760 800 650 250 Balance 760 800 650 250 Last Vital Signs Temp Pulse Resp BP Pulse Ox 98.8 F 83 20 154/90 98 10/20/18 13:00 10/20/18 13:00 10/20/18 13:00 10/20/18 13:00 10/20/18 10:00 Active Medications Amlodipine Besylate (Norvasc -) 10 mg PO DAILY [facility] Last Admin: 10/20/18 09:27 Dose: 10 mg Arformoterol Tartrate (Brovana (Restricted To Pulmonology/Resp) -) 1 amp NEB RBID [facility] Last Admin: 10/20/18 09:10 Dose: 1 amp Ascorbic Acid (Vitamin C -) 500 mg GT BID [facility] Last Admin: 10/20/18 09:27 Dose: 500 mg Atorvastatin Calcium (Lipitor -) 20 mg GT HS [facility] Last Admin: 10/19/18 21:50 Dose: 20 mg Bacitracin (Bacitracin -) 1 applic TP TID [facility] Last Admin: 10/20/18 06:49 Dose: 1 applic Budesonide (Pulmicort 0.5 Mg Nebulizer -) 1 amp NEB RBID [facility] Last Admin: 10/20/18 09:10 Dose: 1 amp Calcium Carbonate (Calcium Carb Oral Suspension -) 500 mg GT BID [facility] Last Admin: 10/20/18 09:26 Dose: 500 mg Heparin Sodium (Porcine) (Heparin -) 5,000 unit SQ BID [facility] Last Admin: 10/20/18 09:25 Dose: 5,000 unit Piperacillin Sod/Tazobactam (Sod 3.375 gm/ Dextrose) 50 mls @ 100 mls/hr IVPB Q8H-IV [facility]; Protocol Last Admin: 10/20/18 09:24 Dose: 100 mls/hr Lactulose (Cephulac (Oral Use)) 10 gm GT DAILY [facility] Last Admin: 10/20/18 09:33 Dose: 10 gm Metoclopramide HCl (Reglan Oral Solution -) 5 mg GT DAILY [facility] Last Admin: 10/20/18 09:26 Dose: 5 mg Metoprolol Succinate (Toprol Xl -) 75 mg PO BID [facility] Last Admin: 10/20/18 09:27 Dose: 75 mg Potassium Chloride (Potassium Chloride Oral Liquid) 40 meq PO BID [facility] Last Admin: 10/20/18 09:25 Dose: 40 meq Constitutional: Yes: NAD on NC O2 Eyes: Yes: WNL HENT: Yes: WNL Neck: Yes: WNL Cardiovascular: Yes: Regular Rate and Rhythm, S1, S2 Respiratory: Yes: Bilateral scattered rhonchi, no wheeze Gastrointestinal: Yes: Normal Bowel Sounds, Soft Extremities: Yes: WNL Edema: No Labs: Laboratory Results - last 24 hr 10/20/18 10/20/18 05:32 05:32 WBC 16.8 H RBC 4.43 Hgb 13.5 Hct 39.3 MCV 88.7 MCH 30.5 MCHC 34.3 RDW 13.8 Plt Count 392 MPV 7.7 Absolute Neuts (auto) 14.0 H Neutrophils % 83.0 H Lymphocytes % 7.2 L Monocytes % 8.1 Eosinophils % 1.3 D Basophils % 0.4 Nucleated RBC % 1 H Sodium 133 L Potassium 3.2 L Chloride 85 L Carbon Dioxide 39 H Anion Gap 9 BUN 11.3 Creatinine 0.3 L Est GFR (CKD-EPI)AfAm 139.26 Est GFR (CKD-EPI)NonAf 120.15 Random Glucose 121 H Calcium 9.2 Total Bilirubin 0.3 AST 17 ALT 32 Alkaline Phosphatase 306 H Total Protein 7.2 Albumin 2.9 L Problem List - Problems (1) COPD exacerbation Code(s): J44.1 - CHRONIC OBSTRUCTIVE PULMONARY DISEASE W (ACUTE) EXACERBATION (2) Scoliosis deformity of spine Code(s): M41.9 - SCOLIOSIS, UNSPECIFIED (3) Anoxic brain injury Code(s): G93.1 - ANOXIC BRAIN DAMAGE, NOT ELSEWHERE CLASSIFIED (4) Aspiration pneumonia Code(s): J69.0 - PNEUMONITIS DUE TO INHALATION OF FOOD AND VOMIT (5) Cerebral palsy Code(s): G80.9 - CEREBRAL PALSY, UNSPECIFIED (6) Functional quadriplegia Code(s): R53.2 - FUNCTIONAL QUADRIPLEGIA (7) Hypoxia Code(s): R09.02 - HYPOXEMIA (8) Seizure disorder Code(s): G40.909 - EPILEPSY, UNSP, NOT INTRACTABLE, WITHOUT STATUS EPILEPTICUS (9) Acute on chronic respiratory failure with hypoxia and hypercapnia Code(s): J96.21 - ACUTE AND CHRONIC RESPIRATORY FAILURE WITH HYPOXIA; J96.22 - ACUTE AND CHRONIC RESPIRATORY FAILURE WITH HYPERCAPNIA Assessment/Plan Acute COPD Exacerbation improved r/o Aspiration Anoxic Brain Injury Seizure Disorder HTN Hyperlipidemia Fever ABX per ID O2 to keep SpO2 >90% Aspiration precautions NIPPV as needed NC O2 Dr Bella
--- NOTE | 2018-10-20 18:00 | PN ---
Progress Note, Physician History of Present Illness: Pt without distress, alert. No new events reported. WBC elevated. Tmax 99.2F. - Current Medication List Current Medications: Active Medications Amlodipine Besylate (Norvasc -) 10 mg PO DAILY [facility] Last Admin: 10/20/18 09:27 Dose: 10 mg Arformoterol Tartrate (Brovana (Restricted To Pulmonology/Resp) -) 1 amp NEB RBID [facility] Last Admin: 10/20/18 09:10 Dose: 1 amp Ascorbic Acid (Vitamin C -) 500 mg GT BID [facility] Last Admin: 10/20/18 09:27 Dose: 500 mg Atorvastatin Calcium (Lipitor -) 20 mg GT HS [facility] Last Admin: 10/19/18 21:50 Dose: 20 mg Bacitracin (Bacitracin -) 1 applic TP TID [facility] Last Admin: 10/20/18 14:35 Dose: 1 applic Budesonide (Pulmicort 0.5 Mg Nebulizer -) 1 amp NEB RBID [facility] Last Admin: 10/20/18 09:10 Dose: 1 amp Calcium Carbonate (Calcium Carb Oral Suspension -) 500 mg GT BID [facility] Last Admin: 10/20/18 09:26 Dose: 500 mg Heparin Sodium (Porcine) (Heparin -) 5,000 unit SQ BID [facility] Last Admin: 10/20/18 09:25 Dose: 5,000 unit Piperacillin Sod/Tazobactam (Sod 3.375 gm/ Dextrose) 50 mls @ 100 mls/hr IVPB Q8H-IV [facility]; Protocol Last Admin: 10/20/18 17:21 Dose: 100 mls/hr Lactulose (Cephulac (Oral Use)) 10 gm GT DAILY [facility] Last Admin: 10/20/18 09:33 Dose: 10 gm Metoclopramide HCl (Reglan Oral Solution -) 5 mg GT DAILY [facility] Last Admin: 10/20/18 09:26 Dose: 5 mg Metoprolol Succinate (Toprol Xl -) 75 mg PO BID [facility] Last Admin: 10/20/18 09:27 Dose: 75 mg Potassium Chloride (Potassium Chloride Oral Liquid) 40 meq PO BID [facility] Last Admin: 10/20/18 09:25 Dose: 40 meq - Objective Vital Signs: Vital Signs Temperature 98.8 F 10/20/18 13:00 Pulse Rate 83 10/20/18 13:00 Respiratory Rate 20 10/20/18 13:00 Blood Pressure 154/90 10/20/18 13:00 O2 Sat by Pulse Oximetry (%) 98 10/20/18 10:00 Constitutional: Yes: No Distress, Calm Cardiovascular: Yes: Regular Rate and Rhythm Respiratory: Yes: On Nasal O2 Gastrointestinal: Yes: Normal Bowel Sounds, Soft Genitourinary: Yes: WNL Extremities: Yes: Other (contracted) Edema: No Integumentary: Yes: WNL Neurological: Yes: Alert Labs: CBC, BMP 10/20/18 05:32 10/20/18 05:32 INR, PTT INR 1.03 (0.83-1.09) 10/09/18 12:10 Problem List - Problems (1) COPD exacerbation Code(s): J44.1 - CHRONIC OBSTRUCTIVE PULMONARY DISEASE W (ACUTE) EXACERBATION (2) PEG (percutaneous endoscopic gastrostomy) status Code(s): Z93.1 - GASTROSTOMY STATUS (3) Acute on chronic respiratory failure with hypoxia and hypercapnia Code(s): J96.21 - ACUTE AND CHRONIC RESPIRATORY FAILURE WITH HYPOXIA; J96.22 - ACUTE AND CHRONIC RESPIRATORY FAILURE WITH HYPERCAPNIA (4) Anoxic brain injury Code(s): G93.1 - ANOXIC BRAIN DAMAGE, NOT ELSEWHERE CLASSIFIED (5) Aspiration pneumonia Code(s): J69.0 - PNEUMONITIS DUE TO INHALATION OF FOOD AND VOMIT (6) Cerebral palsy Code(s): G80.9 - CEREBRAL PALSY, UNSPECIFIED (7) Anoxic brain damage Code(s): G93.1 - ANOXIC BRAIN DAMAGE, NOT ELSEWHERE CLASSIFIED (8) Functional quadriplegia Code(s): R53.2 - FUNCTIONAL QUADRIPLEGIA (9) HLD (hyperlipidemia) Code(s): E78.5 - HYPERLIPIDEMIA, UNSPECIFIED Qualifiers: Hyperlipidemia type: pure hypercholesterolemia Qualified Code(s): E78.00 - Pure hypercholesterolemia, unspecified; E78.0 - Pure hypercholesterolemia (10) HTN (hypertension) Code(s): I10 - ESSENTIAL (PRIMARY) HYPERTENSION Qualifiers: Hypertension type: essential hypertension Qualified Code(s): I10 - Essential (primary) hypertension (11) Seizure disorder Code(s): G40.909 - EPILEPSY, UNSP, NOT INTRACTABLE, WITHOUT STATUS EPILEPTICUS Assessment/Plan COPD Recurrent Aspiration s/p vomiting episodes Mental retardation Cerebral palsy Functional Quadriplegia Seizure d.o. -- currently without respiratory distress, alert -- wbc increased to 16.8K , ? infectious etiology -- repeat cbc in a.m. and monitor vitals -- will consider d/c antibiotics if wbc trends down -- aspiration precautions - supplemental O2 as needed
--- NOTE | 2018-10-20 19:50 | PN ---
Progress Note, Physician History of Present Illness: stable - Current Medication List Current Medications: Active Medications Amlodipine Besylate (Norvasc -) 10 mg PO DAILY [facility] Last Admin: 10/20/18 09:27 Dose: 10 mg Arformoterol Tartrate (Brovana (Restricted To Pulmonology/Resp) -) 1 amp NEB RBID [facility] Last Admin: 10/20/18 09:10 Dose: 1 amp Ascorbic Acid (Vitamin C -) 500 mg GT BID [facility] Last Admin: 10/20/18 09:27 Dose: 500 mg Atorvastatin Calcium (Lipitor -) 20 mg GT HS [facility] Last Admin: 10/19/18 21:50 Dose: 20 mg Bacitracin (Bacitracin -) 1 applic TP TID [facility] Last Admin: 10/20/18 14:35 Dose: 1 applic Budesonide (Pulmicort 0.5 Mg Nebulizer -) 1 amp NEB RBID [facility] Last Admin: 10/20/18 09:10 Dose: 1 amp Calcium Carbonate (Calcium Carb Oral Suspension -) 500 mg GT BID [facility] Last Admin: 10/20/18 09:26 Dose: 500 mg Heparin Sodium (Porcine) (Heparin -) 5,000 unit SQ BID [facility] Last Admin: 10/20/18 09:25 Dose: 5,000 unit Piperacillin Sod/Tazobactam (Sod 3.375 gm/ Dextrose) 50 mls @ 100 mls/hr IVPB Q8H-IV [facility]; Protocol Last Admin: 10/20/18 17:21 Dose: 100 mls/hr Lactulose (Cephulac (Oral Use)) 10 gm GT DAILY [facility] Last Admin: 10/20/18 09:33 Dose: 10 gm Metoclopramide HCl (Reglan Oral Solution -) 5 mg GT DAILY [facility] Last Admin: 10/20/18 09:26 Dose: 5 mg Metoprolol Succinate (Toprol Xl -) 75 mg PO BID [facility] Last Admin: 10/20/18 09:27 Dose: 75 mg Potassium Chloride (Potassium Chloride Oral Liquid) 40 meq PO BID [facility] Last Admin: 10/20/18 09:25 Dose: 40 meq - Objective Vital Signs: Vital Signs Temperature 98.8 F 10/20/18 13:00 Pulse Rate 83 10/20/18 13:00 Respiratory Rate 20 10/20/18 13:00 Blood Pressure 154/90 10/20/18 13:00 O2 Sat by Pulse Oximetry (%) 98 10/20/18 10:00 Constitutional: Yes: No Distress HENT: Yes: Atraumatic Neck: Yes: Supple Cardiovascular: Yes: Regular Rate and Rhythm Respiratory: Yes: Rhonchi Gastrointestinal: Yes: Normal Bowel Sounds Extremities: Yes: WNL Neurological: Yes: Alert Labs: CBC, BMP 10/20/18 05:32 10/20/18 05:32 INR, PTT INR 1.03 (0.83-1.09) 10/09/18 12:10 Problem List - Problems (1) COPD exacerbation Assessment/Plan: on venti mask duo nebs prn Code(s): J44.1 - CHRONIC OBSTRUCTIVE PULMONARY DISEASE W (ACUTE) EXACERBATION (2) Anoxic brain injury Code(s): G93.1 - ANOXIC BRAIN DAMAGE, NOT ELSEWHERE CLASSIFIED (3) Aspiration pneumonia Assessment/Plan: on iv abx now aspiration precautins Code(s): J69.0 - PNEUMONITIS DUE TO INHALATION OF FOOD AND VOMIT (4) Cerebral palsy Code(s): G80.9 - CEREBRAL PALSY, UNSPECIFIED (5) Feeding by G-tube Assessment/Plan: on tube feeds Code(s): Z93.1 - GASTROSTOMY STATUS (6) Functional quadriplegia Code(s): R53.2 - FUNCTIONAL QUADRIPLEGIA (7) HLD (hyperlipidemia) Code(s): E78.5 - HYPERLIPIDEMIA, UNSPECIFIED Qualifiers: Hyperlipidemia type: pure hypercholesterolemia Qualified Code(s): E78.00 - Pure hypercholesterolemia, unspecified; E78.0 - Pure hypercholesterolemia (8) HTN (hypertension) Assessment/Plan: on meds monitor...bp stabilizing now Code(s): I10 - ESSENTIAL (PRIMARY) HYPERTENSION Qualifiers: Hypertension type: essential hypertension Qualified Code(s): I10 - Essential (primary) hypertension (9) Hypoxia Code(s): R09.02 - HYPOXEMIA (10) Seizure disorder Code(s): G40.909 - EPILEPSY, UNSP, NOT INTRACTABLE, WITHOUT STATUS EPILEPTICUS
[2018-10-20] MEDS ORDERED: PT OWN MED DRAWER 7, Y5N ONE (21:06)
[2018-10-20] MEDS: ATORVASTATIN CA 20 MG TABLET (FP) GT SCH (22:13)
[2018-10-21] MEDS ORDERED: PIPERACILLIN/TAZOBACTAM 3.375 GM VIAL IVPB ONE ×2 (02:10→09:02)
[2018-10-21] MEDS ORDERED: DEXTROSE 5%-WATER - 50 ML IVPB ONE ×2 (02:11→09:03)
[2018-10-21] MEDS: PIPERACILLIN/TAZOB 3.375 GM 3.375 GM in DEXTROSE 5%-WATER - 50 ML IVPB SCH ×2 (03:30→09:22)
--- NOTE | 2018-10-21 06:57 | PN ---
Progress Note (short form) - Note Progress Note: Chief Complaint: Events noted, notes reviewed, overall no change in status, patient is awake but nonverbal History of Present Illness: Seen and examined on telemetry. Events noted, notes reviewed, overall no change in status, patient is awake but nonverbal - Current Medication List Current Medications: Current Medications Amlodipine Besylate (Norvasc -) 10 mg PO DAILY [facility] Last Admin: 10/20/18 09:27 Dose: 10 mg Arformoterol Tartrate (Brovana (Restricted To Pulmonology/Resp) -) 1 amp NEB RBID [facility] Last Admin: 10/20/18 21:16 Dose: 1 amp Ascorbic Acid (Vitamin C -) 500 mg GT BID [facility] Last Admin: 10/20/18 22:11 Dose: 500 mg Atorvastatin Calcium (Lipitor -) 20 mg GT HS [facility] Last Admin: 10/20/18 22:13 Dose: 20 mg Bacitracin (Bacitracin -) 1 applic TP TID [facility] Last Admin: 10/20/18 22:14 Dose: 1 applic Budesonide (Pulmicort 0.5 Mg Nebulizer -) 1 amp NEB RBID [facility] Last Admin: 10/20/18 21:16 Dose: 1 amp Calcium Carbonate (Calcium Carb Oral Suspension -) 500 mg GT BID [facility] Last Admin: 10/20/18 22:14 Dose: 500 mg Heparin Sodium (Porcine) (Heparin -) 5,000 unit SQ BID [facility] Last Admin: 10/20/18 22:13 Dose: 5,000 unit Piperacillin Sod/Tazobactam (Sod 3.375 gm/ Dextrose) 50 mls @ 100 mls/hr IVPB Q8H-IV [facility]; Protocol Last Admin: 10/21/18 03:30 Dose: 100 mls/hr Lactulose (Cephulac (Oral Use)) 10 gm GT DAILY [facility] Last Admin: 10/20/18 09:33 Dose: 10 gm Metoclopramide HCl (Reglan Oral Solution -) 5 mg GT DAILY [facility] Last Admin: 10/20/18 09:26 Dose: 5 mg Metoprolol Succinate (Toprol Xl -) 75 mg PO BID [facility] Last Admin: 10/20/18 22:11 Dose: 75 mg Potassium Chloride (Potassium Chloride Oral Liquid) 40 meq PO BID [facility] Last Admin: 10/20/18 22:13 Dose: 40 meq Review of Systems Unable to obtain - Objective Vital Signs: Last Vital Signs Temp Pulse Resp BP Pulse Ox 97.8 F 67 20 154/66 98 10/21/18 01:17 10/21/18 05:01 10/21/18 05:01 10/21/18 05:01 10/20/18 21:00 Intake & Output 10/18/18 10/19/18 10/20/18 10/21/18 23:59 23:59 23:59 23:59 Intake Total 343 606 5511 730 Balance 418 519 7453 730 Constitutional: No Distress, Calm, Thin Neck: Supple Negative JVD Cardiovascular: S1 S2 Regular Rate and Rhythm Respiratory: Scattered Rhonchi Bilaterally Gastrointestinal: Soft Benign Normal Bowel Sounds Ext: No Edema Labs: CBC, BMP 10/21/18 07:15 10/21/18 07:15 Hepatic Panel Total Bilirubin 0.4 mg/dL (0.2-1) 10/21/18 07:15 AST 21 U/L (15-37) 10/21/18 07:15 ALT 29 U/L (13-61) 10/21/18 07:15 Alkaline Phosphatase 323 U/L (45-117) H 10/21/18 07:15 Albumin 3.0 g/dl (3.4-5.0) L 10/21/18 07:15 ABG Results ABG pH 7.41 (7.35-7.45) 10/14/18 10:25 ABG pCO2 at Pt Temp 59.8 mmHg (35-45) H 10/14/18 10:25 ABG pO2 at Pt Temp 98.3 mmHg (80-105) 10/14/18 10:25 ABG HCO3 37.5 mmol/L (22-27) H 10/14/18 10:25 ABG O2 Sat (Measured) 97.5 % (95-98) 10/14/18 10:25 ABG O2 Content 17.8 % vol (15-22) 10/14/18 10:25 ABG Base Excess 10.9 meq/l (-2-2) H 10/14/18 10:25 Assessment/Plan ASSESSMENT: 1. Acute exacerbation of chronic obstructive pulmonary disease, resolving 2. History of recurrent aspiration pneumonia 3. History of anoxic brain injury with cerebral palsy and quadraplegia 4. Hypertensive cardiovascular disease, labile blood pressure 5. Hypercholesterolemia 6. Seizure disorder PLAN: 1. Continue Norvasc 2. Continue Lopressor and titrate dosage as needed 3. If blood pressure remains elevated recommend the addition of angiotensin receptor blockers/ARBS 4. Continue Lipitor 5. Continue antibiotics as per the primary team 6. Discontinue telemetry monitoring as outlined in the prior notes Tommy Turner MD
[2018-10-21] MEDS: ARFORMOTEROL TARTRATE 15 MCG/2 ML VIAL NEB SCH ×2 (07:35→20:45)
[2018-10-21 08:09] LABS: BASO % 0.4 % (0-2.0); EOS % 1.9 % (0-4.5); HEMATOCRIT 40.9 % (32.4-45.2); HEMOGLOBIN 14.1 GM/dL (10.7-15.3); LYMPH % 7.3 % (8-40); MCH 30.6 pg (25.7-33.7); MCHC 34.4 g/dl (32.0-36.0); MEAN PLT VOLUME 7.4 fl (7.5-11.1); MONO % 9.1 % (3.8-10.2); NEUT % 81.3 % (42.8-82.8); PLATELET COUNT 424 K/MM3 (134-434); RDW 13.9 % (11.6-15.6); WHITE BLOOD COUNT 16.7 K/mm3 (4.0-10.0)
[2018-10-21] MEDS: BUDESONIDE 0.5 MG/2 ML INH SUSP VIAL NEB SCH ×2 (08:15→20:45)
[2018-10-21 08:48] LABS: BILIRUBIN,TOTAL 0.4 mg/dL (0.2-1); BLOOD UREA NITROGEN 11.2 mg/dL (7-18); CALCIUM 9.7 mg/dL (8.5-10.1); CREATININE 0.4 mg/dL (0.55-1.3); POTASSIUM 4.1 mmol/L (3.5-5.1); TOT PROT 7.6 g/dl (6.4-8.2)
[2018-10-21] MEDS: LACTULOSE 20 GM/30 ML UDC (FOR ORAL USE ONLY) GT SCH (09:15)
[2018-10-21] MEDS: POTASSIUM CHLORIDE ORAL LIQUID 20 MEQ/15 ML PO SCH ×2 (09:16→22:28)
[2018-10-21] MEDS: metoPROLOL SUCCINATE 25 MG TAB.SR.24H (FP) PO SCH ×3 (09:17→22:45)
[2018-10-21] MEDS: ASCORBIC ACID 500 MG TABLET (FP) GT SCH ×2 (09:19→22:27)
[2018-10-21] MEDS: METOCLOPRAMIDE HCL 5 MG/5 ML UNIT DOSE CUP GT SCH (09:19)
[2018-10-21] MEDS: amLODIPine BESYLATE 10 MG TABLET (FP) PO SCH (09:19)
[2018-10-21] MEDS: CALCIUM CARBONATE SUSPENSION - 500 MG/5 ML ML GT SCH ×2 (09:20→22:28)
[2018-10-21] MEDS: HEPARIN NA (PORCINE) 5,000 UNITS/ML 1ML VIAL SQ SCH ×2 (09:21→22:27)
[2018-10-21] MEDS: BACITRACIN 15 GM TUBE TOPICAL OINTMENT TP SCH ×3 (09:23→22:28)
--- NOTE | 2018-10-21 10:57 | PN ---
Progress Note, Physician History of Present Illness: PULMONARY AWAKE,NON-VERBAL,COMFORTABLE ON NASAL O2,-RESP DISTRESS - Current Medication List Current Medications: Active Medications Amlodipine Besylate (Norvasc -) 10 mg PO DAILY [facility] Last Admin: 10/21/18 09:19 Dose: 10 mg Arformoterol Tartrate (Brovana (Restricted To Pulmonology/Resp) -) 1 amp NEB RBID [facility] Last Admin: 10/21/18 07:35 Dose: 1 amp Ascorbic Acid (Vitamin C -) 500 mg GT BID [facility] Last Admin: 10/21/18 09:19 Dose: 500 mg Atorvastatin Calcium (Lipitor -) 20 mg GT HS [facility] Last Admin: 10/20/18 22:13 Dose: 20 mg Bacitracin (Bacitracin -) 1 applic TP TID [facility] Last Admin: 10/21/18 09:23 Dose: 1 applic Budesonide (Pulmicort 0.5 Mg Nebulizer -) 1 amp NEB RBID [facility] Last Admin: 10/21/18 08:15 Dose: 1 amp Calcium Carbonate (Calcium Carb Oral Suspension -) 500 mg GT BID [facility] Last Admin: 10/21/18 09:20 Dose: 500 mg Heparin Sodium (Porcine) (Heparin -) 5,000 unit SQ BID [facility] Last Admin: 10/21/18 09:21 Dose: 5,000 unit Piperacillin Sod/Tazobactam (Sod 3.375 gm/ Dextrose) 50 mls @ 100 mls/hr IVPB Q8H-IV [facility]; Protocol Last Admin: 10/21/18 09:22 Dose: 100 mls/hr Lactulose (Cephulac (Oral Use)) 10 gm GT DAILY [facility] Last Admin: 10/21/18 09:15 Dose: 10 gm Metoclopramide HCl (Reglan Oral Solution -) 5 mg GT DAILY [facility] Last Admin: 10/21/18 09:19 Dose: 5 mg Metoprolol Succinate (Toprol Xl -) 75 mg PO BID [facility] Last Admin: 10/21/18 09:17 Dose: 75 mg Potassium Chloride (Potassium Chloride Oral Liquid) 40 meq PO BID [facility] Last Admin: 10/21/18 09:16 Dose: 40 meq - Objective Vital Signs: Vital Signs Temperature 97.8 F 10/21/18 01:17 Pulse Rate 67 10/21/18 05:01 Respiratory Rate 20 10/21/18 05:01 Blood Pressure 154/66 10/21/18 05:01 O2 Sat by Pulse Oximetry (%) 97 10/21/18 08:15 Constitutional: Yes: Well Nourished, Calm Eyes: Yes: WNL HENT: Yes: WNL Neck: Yes: WNL Cardiovascular: Yes: Regular Rate and Rhythm, S1, S2 Respiratory: Yes: Rhonchi (FEW SCATTERED RHONCHI) Gastrointestinal: Yes: Normal Bowel Sounds, Soft Extremities: Yes: Shortened, Other (CONTRACTED) Edema: No Labs: CBC, BMP 10/21/18 07:15 10/21/18 07:15 INR, PTT INR 1.03 (0.83-1.09) 10/09/18 12:10 Problem List - Problems (1) COPD exacerbation Code(s): J44.1 - CHRONIC OBSTRUCTIVE PULMONARY DISEASE W (ACUTE) EXACERBATION (2) Scoliosis deformity of spine Code(s): M41.9 - SCOLIOSIS, UNSPECIFIED (3) Anoxic brain injury Code(s): G93.1 - ANOXIC BRAIN DAMAGE, NOT ELSEWHERE CLASSIFIED (4) Aspiration pneumonia Code(s): J69.0 - PNEUMONITIS DUE TO INHALATION OF FOOD AND VOMIT (5) Cerebral palsy Code(s): G80.9 - CEREBRAL PALSY, UNSPECIFIED (6) Functional quadriplegia Code(s): R53.2 - FUNCTIONAL QUADRIPLEGIA (7) Hypoxia Code(s): R09.02 - HYPOXEMIA (8) Seizure disorder Code(s): G40.909 - EPILEPSY, UNSP, NOT INTRACTABLE, WITHOUT STATUS EPILEPTICUS (9) Acute on chronic respiratory failure with hypoxia and hypercapnia Code(s): J96.21 - ACUTE AND CHRONIC RESPIRATORY FAILURE WITH HYPOXIA; J96.22 - ACUTE AND CHRONIC RESPIRATORY FAILURE WITH HYPERCAPNIA Assessment/Plan A/P Acute COPD Exacerbation improved r/o Aspiration Anoxic Brain Injury Seizure Disorder HTN Hyperlipidemia Fever - antibiotics as per id - O2 to keep SpO2 >90% - aspiration precautions - BiPAP to assist in work of breathing as needed - DVT prophylaxis DR SUAREZ
--- NOTE | 2018-10-21 13:49 | PN ---
Progress Note, Physician History of Present Illness: patient stable having dirrhoea clinically otherwise stable - Current Medication List Current Medications: Active Medications Amlodipine Besylate (Norvasc -) 10 mg PO DAILY [facility] Last Admin: 10/21/18 09:19 Dose: 10 mg Arformoterol Tartrate (Brovana (Restricted To Pulmonology/Resp) -) 1 amp NEB RBID [facility] Last Admin: 10/21/18 07:35 Dose: 1 amp Ascorbic Acid (Vitamin C -) 500 mg GT BID [facility] Last Admin: 10/21/18 09:19 Dose: 500 mg Atorvastatin Calcium (Lipitor -) 20 mg GT HS [facility] Last Admin: 10/20/18 22:13 Dose: 20 mg Bacitracin (Bacitracin -) 1 applic TP TID [facility] Last Admin: 10/21/18 09:23 Dose: 1 applic Budesonide (Pulmicort 0.5 Mg Nebulizer -) 1 amp NEB RBID [facility] Last Admin: 10/21/18 08:15 Dose: 1 amp Calcium Carbonate (Calcium Carb Oral Suspension -) 500 mg GT BID [facility] Last Admin: 10/21/18 09:20 Dose: 500 mg Heparin Sodium (Porcine) (Heparin -) 5,000 unit SQ BID [facility] Last Admin: 10/21/18 09:21 Dose: 5,000 unit Lactulose (Cephulac (Oral Use)) 10 gm GT DAILY [facility] Last Admin: 10/21/18 09:15 Dose: 10 gm Metoclopramide HCl (Reglan Oral Solution -) 5 mg GT DAILY [facility] Last Admin: 10/21/18 09:19 Dose: 5 mg Metoprolol Succinate (Toprol Xl -) 75 mg PO BID [facility] Last Admin: 10/21/18 09:17 Dose: 75 mg Potassium Chloride (Potassium Chloride Oral Liquid) 40 meq PO BID [facility] Last Admin: 10/21/18 09:16 Dose: 40 meq Vancomycin HCl (Vancomycin Oral Solution) 125 mg PO Q6HPO [facility] - Objective Vital Signs: Vital Signs Temperature 98.5 F 10/21/18 10:00 Pulse Rate 98 H 10/21/18 10:00 Respiratory Rate 20 10/21/18 10:00 Blood Pressure 162/83 10/21/18 10:00 O2 Sat by Pulse Oximetry (%) 99 10/21/18 10:00 Constitutional: Yes: No Distress, Calm Cardiovascular: Yes: S1, S2 Respiratory: Yes: Regular, On Nasal O2 Gastrointestinal: Yes: Normal Bowel Sounds, Soft, Other (peg in place) Musculoskeletal: Yes: WNL Extremities: Yes: Other (contracted) Neurological: Yes: Alert Psychiatric: Yes: Other Labs: CBC, BMP 10/21/18 07:15 10/21/18 07:15 INR, PTT INR 1.03 (0.83-1.09) 10/09/18 12:10 Assessment/Plan Problem List - Problems (1) COPD exacerbation Code(s): J44.1 - CHRONIC OBSTRUCTIVE PULMONARY DISEASE W (ACUTE) EXACERBATION (2) Anoxic brain injury Code(s): G93.1 - ANOXIC BRAIN DAMAGE, NOT ELSEWHERE CLASSIFIED (3) Aspiration pneumonia Code(s): J69.0 - PNEUMONITIS DUE TO INHALATION OF FOOD AND VOMIT (4) Cerebral palsy Code(s): G80.9 - CEREBRAL PALSY, UNSPECIFIED (5) Feeding by G-tube Code(s): Z93.1 - GASTROSTOMY STATUS (6) Functional quadriplegia Code(s): R53.2 - FUNCTIONAL QUADRIPLEGIA (7) HLD (hyperlipidemia) Code(s): E78.5 - HYPERLIPIDEMIA, UNSPECIFIED (8) HTN (hypertension) Code(s): I10 - ESSENTIAL (PRIMARY) HYPERTENSION (9) Hypoxia Code(s): R09.02 - HYPOXEMIA (10) Seizure disorder Code(s): G40.909 - EPILEPSY, UNSP, NOT INTRACTABLE, WITHOUT STATUS EPILEPTICUS plan continue current mgmt will stop abx started on oral vanco ordered a cdiff
--- NOTE | 2018-10-21 17:25 | PN ---
Progress Note, Physician History of Present Illness: stable - Current Medication List Current Medications: Active Medications Amlodipine Besylate (Norvasc -) 10 mg PO DAILY [facility] Last Admin: 10/21/18 09:19 Dose: 10 mg Arformoterol Tartrate (Brovana (Restricted To Pulmonology/Resp) -) 1 amp NEB RBID [facility] Last Admin: 10/21/18 07:35 Dose: 1 amp Ascorbic Acid (Vitamin C -) 500 mg GT BID [facility] Last Admin: 10/21/18 09:19 Dose: 500 mg Atorvastatin Calcium (Lipitor -) 20 mg GT HS [facility] Last Admin: 10/20/18 22:13 Dose: 20 mg Bacitracin (Bacitracin -) 1 applic TP TID [facility] Last Admin: 10/21/18 15:04 Dose: 1 applic Budesonide (Pulmicort 0.5 Mg Nebulizer -) 1 amp NEB RBID [facility] Last Admin: 10/21/18 08:15 Dose: 1 amp Calcium Carbonate (Calcium Carb Oral Suspension -) 500 mg GT BID [facility] Last Admin: 10/21/18 09:20 Dose: 500 mg Heparin Sodium (Porcine) (Heparin -) 5,000 unit SQ BID [facility] Last Admin: 10/21/18 09:21 Dose: 5,000 unit Lactulose (Cephulac (Oral Use)) 10 gm GT DAILY [facility] Last Admin: 10/21/18 09:15 Dose: 10 gm Metoclopramide HCl (Reglan Oral Solution -) 5 mg GT DAILY [facility] Last Admin: 10/21/18 09:19 Dose: 5 mg Metoprolol Succinate (Toprol Xl -) 75 mg PO BID [facility] Last Admin: 10/21/18 09:17 Dose: 75 mg Potassium Chloride (Potassium Chloride Oral Liquid) 40 meq PO BID [facility] Last Admin: 10/21/18 09:16 Dose: 40 meq Vancomycin HCl (Vancomycin Oral Solution) 125 mg PO Q6HPO [facility] - Objective Vital Signs: Vital Signs Temperature 98.6 F 10/21/18 14:00 Pulse Rate 93 H 10/21/18 14:00 Respiratory Rate 20 10/21/18 14:00 Blood Pressure 134/77 10/21/18 14:00 O2 Sat by Pulse Oximetry (%) 99 10/21/18 10:00 Constitutional: Yes: No Distress HENT: Yes: Atraumatic Neck: Yes: Supple Cardiovascular: Yes: Regular Rate and Rhythm Respiratory: Yes: Rhonchi Gastrointestinal: Yes: Normal Bowel Sounds Edema: No Neurological: Yes: Alert Labs: CBC, BMP 10/21/18 07:15 10/21/18 07:15 INR, PTT INR 1.03 (0.83-1.09) 10/09/18 12:10 Problem List - Problems (1) COPD exacerbation Assessment/Plan: on prn oxygen duo nebs prn Code(s): J44.1 - CHRONIC OBSTRUCTIVE PULMONARY DISEASE W (ACUTE) EXACERBATION (2) Anoxic brain injury Code(s): G93.1 - ANOXIC BRAIN DAMAGE, NOT ELSEWHERE CLASSIFIED (3) Aspiration pneumonia Assessment/Plan: on iv abx now aspiration precautins Code(s): J69.0 - PNEUMONITIS DUE TO INHALATION OF FOOD AND VOMIT (4) Cerebral palsy Code(s): G80.9 - CEREBRAL PALSY, UNSPECIFIED (5) Feeding by G-tube Assessment/Plan: on tube feeds Code(s): Z93.1 - GASTROSTOMY STATUS (6) Functional quadriplegia Code(s): R53.2 - FUNCTIONAL QUADRIPLEGIA (7) HLD (hyperlipidemia) Code(s): E78.5 - HYPERLIPIDEMIA, UNSPECIFIED Qualifiers: Hyperlipidemia type: pure hypercholesterolemia Qualified Code(s): E78.00 - Pure hypercholesterolemia, unspecified; E78.0 - Pure hypercholesterolemia (8) HTN (hypertension) Assessment/Plan: on meds monitor...bp stabilizing now Code(s): I10 - ESSENTIAL (PRIMARY) HYPERTENSION Qualifiers: Hypertension type: essential hypertension Qualified Code(s): I10 - Essential (primary) hypertension (9) Hypoxia Code(s): R09.02 - HYPOXEMIA (10) Seizure disorder Assessment/Plan: on meds stable Code(s): G40.909 - EPILEPSY, UNSP, NOT INTRACTABLE, WITHOUT STATUS EPILEPTICUS
[2018-10-21] MEDS: VANCOMYCIN 250 MG/5 ML ORAL SOLUTION PO SCH (18:27)
[2018-10-21] MEDS ORDERED: PT OWN MED DRAWER 7, Y5N ONE (21:50)
[2018-10-21] MEDS: ATORVASTATIN CA 20 MG TABLET (FP) GT SCH (22:27)
[2018-10-22] MEDS: VANCOMYCIN 250 MG/5 ML ORAL SOLUTION PO SCH ×4 (00:48→18:22)
[2018-10-22] MEDS: BACITRACIN 15 GM TUBE TOPICAL OINTMENT TP SCH ×3 (06:46→23:14)
[2018-10-22] MEDS ORDERED: PT OWN MED DRAWER 7, Y5N ONE ×3 (07:23→23:27)
[2018-10-22] MEDS: BUDESONIDE 0.5 MG/2 ML INH SUSP VIAL NEB SCH ×2 (07:40→20:25)
[2018-10-22] MEDS: ARFORMOTEROL TARTRATE 15 MCG/2 ML VIAL NEB SCH ×2 (07:40→20:25)
[2018-10-22] MEDS ORDERED: METOPROLOL TARTRATE 25 MG TABLET (FP) PO SCH (10:00)
[2018-10-22] MEDS: HEPARIN NA (PORCINE) 5,000 UNITS/ML 1ML VIAL SQ SCH ×2 (10:08→23:12)
[2018-10-22] MEDS: LACTULOSE 20 GM/30 ML UDC (FOR ORAL USE ONLY) GT SCH (10:10)
[2018-10-22] MEDS: amLODIPine BESYLATE 10 MG TABLET (FP) PO SCH (10:10)
[2018-10-22] MEDS: POTASSIUM CHLORIDE ORAL LIQUID 20 MEQ/15 ML PO SCH ×2 (10:10→23:12)
[2018-10-22] MEDS: ASCORBIC ACID 500 MG TABLET (FP) GT SCH ×2 (10:10→23:12)
[2018-10-22] MEDS: METOCLOPRAMIDE HCL 5 MG/5 ML UNIT DOSE CUP GT SCH (10:10)
[2018-10-22] MEDS: CALCIUM CARBONATE SUSPENSION - 500 MG/5 ML ML GT SCH ×2 (10:12→23:30)
--- NOTE | 2018-10-22 11:47 | PN ---
Progress Note, Physician History of Present Illness: PULMONARY SLEEPING COMFORTABLE ON BIPAP ,-RESP DISTRESS - Current Medication List Current Medications: Active Medications Amlodipine Besylate (Norvasc -) 10 mg PO DAILY [facility] Last Admin: 10/22/18 10:10 Dose: 10 mg Arformoterol Tartrate (Brovana (Restricted To Pulmonology/Resp) -) 1 amp NEB RBID [facility] Last Admin: 10/22/18 07:40 Dose: 1 amp Ascorbic Acid (Vitamin C -) 500 mg GT BID [facility] Last Admin: 10/22/18 10:10 Dose: 500 mg Atorvastatin Calcium (Lipitor -) 20 mg GT HS [facility] Last Admin: 10/21/18 22:27 Dose: 20 mg Bacitracin (Bacitracin -) 1 applic TP TID [facility] Last Admin: 10/22/18 06:46 Dose: 1 applic Budesonide (Pulmicort 0.5 Mg Nebulizer -) 1 amp NEB RBID [facility] Last Admin: 10/22/18 07:40 Dose: 1 amp Calcium Carbonate (Calcium Carb Oral Suspension -) 500 mg GT BID [facility] Last Admin: 10/22/18 10:12 Dose: 500 mg Heparin Sodium (Porcine) (Heparin -) 5,000 unit SQ BID [facility] Last Admin: 10/22/18 10:08 Dose: 5,000 unit Lactulose (Cephulac (Oral Use)) 10 gm GT DAILY [facility] Last Admin: 10/22/18 10:10 Dose: 10 gm Metoclopramide HCl (Reglan Oral Solution -) 5 mg GT DAILY [facility] Last Admin: 10/22/18 10:10 Dose: 5 mg Metoprolol Tartrate (Lopressor -) 75 mg PO BID [facility] Potassium Chloride (Potassium Chloride Oral Liquid) 40 meq PO BID [facility] Last Admin: 10/22/18 10:10 Dose: 40 meq Vancomycin HCl (Vancomycin Oral Solution) 125 mg PO Q6HPO [facility] Last Admin: 10/22/18 06:46 Dose: 125 mg - Objective Vital Signs: Vital Signs Temperature 98.9 F 10/22/18 09:00 Pulse Rate 85 10/22/18 09:00 Respiratory Rate 20 10/22/18 09:00 Blood Pressure 155/78 10/22/18 09:00 O2 Sat by Pulse Oximetry (%) 98 10/22/18 11:23 Constitutional: Yes: Well Nourished, Calm, Other (SLEEPING) Eyes: Yes: WNL HENT: Yes: WNL Neck: Yes: WNL Cardiovascular: Yes: Regular Rate and Rhythm, S1, S2 Respiratory: Yes: Diminished, On BiPap Gastrointestinal: Yes: Normal Bowel Sounds, Soft Extremities: Yes: Shortened, Other (CONTRACTED) Edema: No Labs: CBC, BMP Problem List - Problems (1) COPD exacerbation Code(s): J44.1 - CHRONIC OBSTRUCTIVE PULMONARY DISEASE W (ACUTE) EXACERBATION (2) Scoliosis deformity of spine Code(s): M41.9 - SCOLIOSIS, UNSPECIFIED (3) Anoxic brain injury Code(s): G93.1 - ANOXIC BRAIN DAMAGE, NOT ELSEWHERE CLASSIFIED (4) Aspiration pneumonia Code(s): J69.0 - PNEUMONITIS DUE TO INHALATION OF FOOD AND VOMIT (5) Cerebral palsy Code(s): G80.9 - CEREBRAL PALSY, UNSPECIFIED (6) Functional quadriplegia Code(s): R53.2 - FUNCTIONAL QUADRIPLEGIA (7) Hypoxia Code(s): R09.02 - HYPOXEMIA (8) Seizure disorder Code(s): G40.909 - EPILEPSY, UNSP, NOT INTRACTABLE, WITHOUT STATUS EPILEPTICUS (9) Acute on chronic respiratory failure with hypoxia and hypercapnia Code(s): J96.21 - ACUTE AND CHRONIC RESPIRATORY FAILURE WITH HYPOXIA; J96.22 - ACUTE AND CHRONIC RESPIRATORY FAILURE WITH HYPERCAPNIA Assessment/Plan A/P Acute COPD Exacerbation improved r/o Aspiration Anoxic Brain Injury Seizure Disorder HTN Hyperlipidemia Fever - O2 to keep SpO2 >90% - aspiration precautions - BiPAP to assist in work of breathing as needed - DVT prophylaxis DR SUAREZ
--- NOTE | 2018-10-22 12:06 | PN ---
Progress Note (short form) - Note Progress Note: Chief Complaint: Events noted, notes reviewed, seen earlier today overall no change in status, patient is awake but nonverbal History of Present Illness: Seen and examined on telemetry. Events noted, notes reviewed, seen earlier today overall no change in status, patient is awake but nonverbal - Current Medication List Current Medications: Current Medications Amlodipine Besylate (Norvasc -) 10 mg PO DAILY [facility] Last Admin: 10/22/18 10:10 Dose: 10 mg Arformoterol Tartrate (Brovana (Restricted To Pulmonology/Resp) -) 1 amp NEB RBID [facility] Last Admin: 10/22/18 07:40 Dose: 1 amp Ascorbic Acid (Vitamin C -) 500 mg GT BID [facility] Last Admin: 10/22/18 10:10 Dose: 500 mg Atorvastatin Calcium (Lipitor -) 20 mg GT HS [facility] Last Admin: 10/21/18 22:27 Dose: 20 mg Bacitracin (Bacitracin -) 1 applic TP TID [facility] Last Admin: 10/22/18 06:46 Dose: 1 applic Budesonide (Pulmicort 0.5 Mg Nebulizer -) 1 amp NEB RBID [facility] Last Admin: 10/22/18 07:40 Dose: 1 amp Calcium Carbonate (Calcium Carb Oral Suspension -) 500 mg GT BID [facility] Last Admin: 10/22/18 10:12 Dose: 500 mg Heparin Sodium (Porcine) (Heparin -) 5,000 unit SQ BID [facility] Last Admin: 10/22/18 10:08 Dose: 5,000 unit Lactulose (Cephulac (Oral Use)) 10 gm GT DAILY [facility] Last Admin: 10/22/18 10:10 Dose: 10 gm Metoclopramide HCl (Reglan Oral Solution -) 5 mg GT DAILY [facility] Last Admin: 10/22/18 10:10 Dose: 5 mg Metoprolol Tartrate (Lopressor -) 75 mg PO BID [facility] Potassium Chloride (Potassium Chloride Oral Liquid) 40 meq PO BID [facility] Last Admin: 10/22/18 10:10 Dose: 40 meq Vancomycin HCl (Vancomycin Oral Solution) 125 mg PO Q6HPO [facility] Last Admin: 10/22/18 06:46 Dose: 125 mg Review of Systems Unable to obtain - Objective Vital Signs: Last Vital Signs Temp Pulse Resp BP Pulse Ox 98.9 F 85 20 155/78 98 10/22/18 09:00 10/22/18 09:00 10/22/18 09:00 10/22/18 09:00 10/22/18 11:23 Intake & Output 10/19/18 10/20/18 10/21/18 10/22/18 23:59 23:59 23:59 23:59 Intake Total 650 1509 1130 10 Balance 650 1509 1130 10 Constitutional: No Distress, Calm, Thin Neck: Supple Negative JVD Cardiovascular: S1 S2 Regular Rate and Rhythm Respiratory: Scattered Rhonchi Bilaterally Gastrointestinal: Soft Benign Normal Bowel Sounds Ext: No Edema Labs: CBC, BMP 10/21/18 07:15 10/21/18 07:15 Hepatic Panel Total Bilirubin 0.4 mg/dL (0.2-1) 10/21/18 07:15 AST 21 U/L (15-37) 10/21/18 07:15 ALT 29 U/L (13-61) 10/21/18 07:15 Alkaline Phosphatase 323 U/L (45-117) H 10/21/18 07:15 Albumin 3.0 g/dl (3.4-5.0) L 10/21/18 07:15 INR, PTT INR 1.03 (0.83-1.09) 10/09/18 12:10 Assessment/Plan ASSESSMENT: 1. Acute exacerbation of chronic obstructive pulmonary disease, resolving 2. History of recurrent aspiration pneumonia 3. History of anoxic brain injury with cerebral palsy and quadraplegia 4. Hypertensive cardiovascular disease, labile blood pressure 5. Hypercholesterolemia 6. Seizure disorder PLAN: 1. Continue Norvasc 2. Continue Lopressor and titrate dosage as needed 3. As outlined in the prior note f blood pressure remains elevated recommend the addition of angiotensin receptor blockers/ARBS 4. Continue Lipitor 5. Continue antibiotics as per the primary team 6. Discontinue telemetry monitoring as outlined in the prior notes Tommy Turner MD
[2018-10-22] MEDS: VALSARTAN 40 MG TABLET (FP) PO SCH (12:23)
--- NOTE | 2018-10-22 13:25 | PN ---
Progress Note, Physician - Current Medication List Current Medications: Active Medications Amlodipine Besylate (Norvasc -) 10 mg PO DAILY [facility] Last Admin: 10/22/18 10:10 Dose: 10 mg Arformoterol Tartrate (Brovana (Restricted To Pulmonology/Resp) -) 1 amp NEB RBID [facility] Last Admin: 10/22/18 07:40 Dose: 1 amp Ascorbic Acid (Vitamin C -) 500 mg GT BID [facility] Last Admin: 10/22/18 10:10 Dose: 500 mg Atorvastatin Calcium (Lipitor -) 20 mg GT HS [facility] Last Admin: 10/21/18 22:27 Dose: 20 mg Bacitracin (Bacitracin -) 1 applic TP TID [facility] Last Admin: 10/22/18 06:46 Dose: 1 applic Budesonide (Pulmicort 0.5 Mg Nebulizer -) 1 amp NEB RBID [facility] Last Admin: 10/22/18 07:40 Dose: 1 amp Calcium Carbonate (Calcium Carb Oral Suspension -) 500 mg GT BID [facility] Last Admin: 10/22/18 10:12 Dose: 500 mg Heparin Sodium (Porcine) (Heparin -) 5,000 unit SQ BID [facility] Last Admin: 10/22/18 10:08 Dose: 5,000 unit Lactulose (Cephulac (Oral Use)) 10 gm GT DAILY [facility] Last Admin: 10/22/18 10:10 Dose: 10 gm Metoclopramide HCl (Reglan Oral Solution -) 5 mg GT DAILY [facility] Last Admin: 10/22/18 10:10 Dose: 5 mg Metoprolol Tartrate (Lopressor -) 100 mg PO BID [facility] Potassium Chloride (Potassium Chloride Oral Liquid) 40 meq PO BID [facility] Last Admin: 10/22/18 10:10 Dose: 40 meq Valsartan (Diovan -) 40 mg PO DAILY [facility] Last Admin: 10/22/18 12:23 Dose: 40 mg Vancomycin HCl (Vancomycin Oral Solution) 125 mg PO Q6HPO [facility] Last Admin: 10/22/18 12:23 Dose: 125 mg - Objective Vital Signs: Vital Signs Temperature 98.9 F 10/22/18 09:00 Pulse Rate 85 10/22/18 09:00 Respiratory Rate 20 10/22/18 09:00 Blood Pressure 155/78 10/22/18 09:00 O2 Sat by Pulse Oximetry (%) 98 10/22/18 11:23 Labs: CBC, BMP 10/21/18 07:15 10/21/18 07:15 INR, PTT INR 1.03 (0.83-1.09) 10/09/18 12:10
[2018-10-22] MEDS: ATORVASTATIN CA 20 MG TABLET (FP) GT SCH (23:12)
[2018-10-22] MEDS: METOPROLOL TARTRATE 50 MG TABLET (FP) PO SCH (23:13)
[2018-10-23] MEDS: BACITRACIN 15 GM TUBE TOPICAL OINTMENT TP SCH ×3 (06:09→22:02)
[2018-10-23] MEDS: VANCOMYCIN 250 MG/5 ML ORAL SOLUTION PO SCH ×4 (06:09→17:42)
[2018-10-23] MEDS: BUDESONIDE 0.5 MG/2 ML INH SUSP VIAL NEB SCH ×2 (07:36→20:14)
[2018-10-23] MEDS: ARFORMOTEROL TARTRATE 15 MCG/2 ML VIAL NEB SCH ×2 (07:36→20:14)
[2018-10-23] MEDS ORDERED: PT OWN MED DRAWER 7, Y5N ONE ×3 (09:29→21:59)
[2018-10-23] MEDS: ASCORBIC ACID 500 MG TABLET (FP) GT SCH ×2 (09:39→22:01)
[2018-10-23] MEDS: amLODIPine BESYLATE 10 MG TABLET (FP) PO SCH (09:39)
[2018-10-23] MEDS: VALSARTAN 40 MG TABLET (FP) PO SCH (09:39)
[2018-10-23] MEDS: METOPROLOL TARTRATE 50 MG TABLET (FP) PO SCH ×2 (09:40→22:01)
[2018-10-23] MEDS: METOCLOPRAMIDE HCL 5 MG/5 ML UNIT DOSE CUP GT SCH (09:40)
[2018-10-23] MEDS: HEPARIN NA (PORCINE) 5,000 UNITS/ML 1ML VIAL SQ SCH ×2 (09:41→22:01)
[2018-10-23] MEDS: LACTULOSE 20 GM/30 ML UDC (FOR ORAL USE ONLY) GT SCH (09:41)
[2018-10-23] MEDS: CALCIUM CARBONATE SUSPENSION - 500 MG/5 ML ML GT SCH ×2 (09:41→22:00)
[2018-10-23] MEDS: POTASSIUM CHLORIDE ORAL LIQUID 20 MEQ/15 ML PO SCH ×2 (09:41→22:00)
--- NOTE | 2018-10-23 10:48 | PN ---
Progress Note, Physician History of Present Illness: patient stable on face mask - Current Medication List Current Medications: Active Medications Amlodipine Besylate (Norvasc -) 10 mg PO DAILY [facility] Last Admin: 10/23/18 09:39 Dose: 10 mg Arformoterol Tartrate (Brovana (Restricted To Pulmonology/Resp) -) 1 amp NEB RBID [facility] Last Admin: 10/23/18 07:36 Dose: 1 amp Ascorbic Acid (Vitamin C -) 500 mg GT BID [facility] Last Admin: 10/23/18 09:39 Dose: 500 mg Atorvastatin Calcium (Lipitor -) 20 mg GT HS [facility] Last Admin: 10/22/18 23:12 Dose: 20 mg Bacitracin (Bacitracin -) 1 applic TP TID [facility] Last Admin: 10/23/18 06:09 Dose: 1 applic Budesonide (Pulmicort 0.5 Mg Nebulizer -) 1 amp NEB RBID [facility] Last Admin: 10/23/18 07:36 Dose: 1 amp Calcium Carbonate (Calcium Carb Oral Suspension -) 500 mg GT BID [facility] Last Admin: 10/23/18 09:41 Dose: 500 mg Heparin Sodium (Porcine) (Heparin -) 5,000 unit SQ BID [facility] Last Admin: 10/23/18 09:41 Dose: 5,000 unit Lactulose (Cephulac (Oral Use)) 10 gm GT DAILY [facility] Last Admin: 10/23/18 09:41 Dose: 10 gm Metoclopramide HCl (Reglan Oral Solution -) 5 mg GT DAILY [facility] Last Admin: 10/23/18 09:40 Dose: 5 mg Metoprolol Tartrate (Lopressor -) 100 mg PO BID [facility] Last Admin: 10/23/18 09:40 Dose: 100 mg Potassium Chloride (Potassium Chloride Oral Liquid) 40 meq PO BID [facility] Last Admin: 10/23/18 09:41 Dose: 40 meq Valsartan (Diovan -) 40 mg PO DAILY [facility] Last Admin: 10/23/18 09:39 Dose: 40 mg Vancomycin HCl (Vancomycin Oral Solution) 125 mg PO Q6HPO [facility] Last Admin: 10/23/18 06:09 Dose: 125 mg - Objective Vital Signs: Vital Signs Temperature 98 F 10/23/18 04:48 Pulse Rate 72 10/23/18 04:48 Respiratory Rate 18 10/23/18 04:48 Blood Pressure 158/82 10/23/18 04:48 O2 Sat by Pulse Oximetry (%) 97 10/23/18 07:37 Constitutional: Yes: No Distress, Calm Cardiovascular: Yes: S1, S2 Respiratory: Yes: Regular, CTA Bilaterally Gastrointestinal: Yes: Normal Bowel Sounds, Soft Musculoskeletal: Yes: Other Extremities: Yes: Other Integumentary: Yes: Other Neurological: Yes: Alert, Other Labs: CBC, BMP 10/21/18 07:15 10/21/18 07:15 INR, PTT INR 1.03 (0.83-1.09) 10/09/18 12:10 Assessment/Plan Problem List - Problems (1) COPD exacerbation Code(s): J44.1 - CHRONIC OBSTRUCTIVE PULMONARY DISEASE W (ACUTE) EXACERBATION (2) Anoxic brain injury Code(s): G93.1 - ANOXIC BRAIN DAMAGE, NOT ELSEWHERE CLASSIFIED (3) Aspiration pneumonia Code(s): J69.0 - PNEUMONITIS DUE TO INHALATION OF FOOD AND VOMIT (4) Cerebral palsy Code(s): G80.9 - CEREBRAL PALSY, UNSPECIFIED (5) Feeding by G-tube Code(s): Z93.1 - GASTROSTOMY STATUS (6) Functional quadriplegia Code(s): R53.2 - FUNCTIONAL QUADRIPLEGIA (7) HLD (hyperlipidemia) Code(s): E78.5 - HYPERLIPIDEMIA, UNSPECIFIED (8) HTN (hypertension) Code(s): I10 - ESSENTIAL (PRIMARY) HYPERTENSION (9) Hypoxia Code(s): R09.02 - HYPOXEMIA (10) Seizure disorder Code(s): G40.909 - EPILEPSY, UNSP, NOT INTRACTABLE, WITHOUT STATUS EPILEPTICUS plan continue current mgmt await for cdiff resp support rest as per the team
--- NOTE | 2018-10-23 11:47 | PN ---
Progress Note, Physician History of Present Illness: this note is for 10/22/18 patient was seen and examined, culdnt put note - Current Medication List Current Medications: Active Medications Amlodipine Besylate (Norvasc -) 10 mg PO DAILY [facility] Last Admin: 10/23/18 09:39 Dose: 10 mg Arformoterol Tartrate (Brovana (Restricted To Pulmonology/Resp) -) 1 amp NEB RBID [facility] Last Admin: 10/23/18 07:36 Dose: 1 amp Ascorbic Acid (Vitamin C -) 500 mg GT BID [facility] Last Admin: 10/23/18 09:39 Dose: 500 mg Atorvastatin Calcium (Lipitor -) 20 mg GT HS [facility] Last Admin: 10/22/18 23:12 Dose: 20 mg Bacitracin (Bacitracin -) 1 applic TP TID [facility] Last Admin: 10/23/18 06:09 Dose: 1 applic Budesonide (Pulmicort 0.5 Mg Nebulizer -) 1 amp NEB RBID [facility] Last Admin: 10/23/18 07:36 Dose: 1 amp Calcium Carbonate (Calcium Carb Oral Suspension -) 500 mg GT BID [facility] Last Admin: 10/23/18 09:41 Dose: 500 mg Heparin Sodium (Porcine) (Heparin -) 5,000 unit SQ BID [facility] Last Admin: 10/23/18 09:41 Dose: 5,000 unit Lactulose (Cephulac (Oral Use)) 10 gm GT DAILY [facility] Last Admin: 10/23/18 09:41 Dose: 10 gm Metoclopramide HCl (Reglan Oral Solution -) 5 mg GT DAILY [facility] Last Admin: 10/23/18 09:40 Dose: 5 mg Metoprolol Tartrate (Lopressor -) 100 mg PO BID [facility] Last Admin: 10/23/18 09:40 Dose: 100 mg Potassium Chloride (Potassium Chloride Oral Liquid) 40 meq PO BID [facility] Last Admin: 10/23/18 09:41 Dose: 40 meq Valsartan (Diovan -) 40 mg PO DAILY [facility] Last Admin: 10/23/18 09:39 Dose: 40 mg Vancomycin HCl (Vancomycin Oral Solution) 125 mg PO Q6HPO [facility] Last Admin: 10/23/18 06:09 Dose: 125 mg - Objective Vital Signs: Vital Signs Temperature 98 F 10/23/18 04:48 Pulse Rate 72 10/23/18 04:48 Respiratory Rate 18 10/23/18 04:48 Blood Pressure 158/82 10/23/18 04:48 O2 Sat by Pulse Oximetry (%) 97 10/23/18 07:37 Constitutional: Yes: No Distress HENT: Yes: Atraumatic Neck: Yes: Supple Cardiovascular: Yes: Regular Rate and Rhythm Respiratory: Yes: Rhonchi Gastrointestinal: Yes: Normal Bowel Sounds, Other (peg in place) Edema: No Neurological: Yes: Other (awake) Labs: CBC, BMP 10/21/18 07:15 10/21/18 07:15 INR, PTT INR 1.03 (0.83-1.09) 10/09/18 12:10 Problem List - Problems (1) COPD exacerbation Assessment/Plan: on prn oxygen duo nebs prn Code(s): J44.1 - CHRONIC OBSTRUCTIVE PULMONARY DISEASE W (ACUTE) EXACERBATION (2) Anoxic brain injury Code(s): G93.1 - ANOXIC BRAIN DAMAGE, NOT ELSEWHERE CLASSIFIED (3) Aspiration pneumonia Assessment/Plan: on iv abx now aspiration precautins Code(s): J69.0 - PNEUMONITIS DUE TO INHALATION OF FOOD AND VOMIT (4) Cerebral palsy Code(s): G80.9 - CEREBRAL PALSY, UNSPECIFIED (5) Feeding by G-tube Assessment/Plan: on tube feeds Code(s): Z93.1 - GASTROSTOMY STATUS (6) Functional quadriplegia Code(s): R53.2 - FUNCTIONAL QUADRIPLEGIA (7) HLD (hyperlipidemia) Code(s): E78.5 - HYPERLIPIDEMIA, UNSPECIFIED Qualifiers: Hyperlipidemia type: pure hypercholesterolemia Qualified Code(s): E78.00 - Pure hypercholesterolemia, unspecified; E78.0 - Pure hypercholesterolemia (8) HTN (hypertension) Code(s): I10 - ESSENTIAL (PRIMARY) HYPERTENSION Qualifiers: Hypertension type: essential hypertension Qualified Code(s): I10 - Essential (primary) hypertension (9) Hypoxia Code(s): R09.02 - HYPOXEMIA (10) Seizure disorder Code(s): G40.909 - EPILEPSY, UNSP, NOT INTRACTABLE, WITHOUT STATUS EPILEPTICUS
--- NOTE | 2018-10-23 11:53 | PN ---
Progress Note, Physician Chief Complaint: pulmonary no distress,on vm,-tachypnea,+ increased secretions with feedings - Current Medication List Current Medications: Active Medications Amlodipine Besylate (Norvasc -) 10 mg PO DAILY [facility] Last Admin: 10/23/18 09:39 Dose: 10 mg Arformoterol Tartrate (Brovana (Restricted To Pulmonology/Resp) -) 1 amp NEB RBID [facility] Last Admin: 10/23/18 07:36 Dose: 1 amp Ascorbic Acid (Vitamin C -) 500 mg GT BID [facility] Last Admin: 10/23/18 09:39 Dose: 500 mg Atorvastatin Calcium (Lipitor -) 20 mg GT HS [facility] Last Admin: 10/22/18 23:12 Dose: 20 mg Bacitracin (Bacitracin -) 1 applic TP TID [facility] Last Admin: 10/23/18 06:09 Dose: 1 applic Budesonide (Pulmicort 0.5 Mg Nebulizer -) 1 amp NEB RBID [facility] Last Admin: 10/23/18 07:36 Dose: 1 amp Calcium Carbonate (Calcium Carb Oral Suspension -) 500 mg GT BID [facility] Last Admin: 10/23/18 09:41 Dose: 500 mg Heparin Sodium (Porcine) (Heparin -) 5,000 unit SQ BID [facility] Last Admin: 10/23/18 09:41 Dose: 5,000 unit Lactulose (Cephulac (Oral Use)) 10 gm GT DAILY [facility] Last Admin: 10/23/18 09:41 Dose: 10 gm Metoclopramide HCl (Reglan Oral Solution -) 5 mg GT DAILY [facility] Last Admin: 10/23/18 09:40 Dose: 5 mg Metoprolol Tartrate (Lopressor -) 100 mg PO BID [facility] Last Admin: 10/23/18 09:40 Dose: 100 mg Potassium Chloride (Potassium Chloride Oral Liquid) 40 meq PO BID [facility] Last Admin: 10/23/18 09:41 Dose: 40 meq Valsartan (Diovan -) 40 mg PO DAILY [facility] Last Admin: 10/23/18 09:39 Dose: 40 mg Vancomycin HCl (Vancomycin Oral Solution) 125 mg PO Q6HPO [facility] Last Admin: 10/23/18 06:09 Dose: 125 mg - Objective Vital Signs: Vital Signs Temperature 98 F 10/23/18 04:48 Pulse Rate 72 10/23/18 04:48 Respiratory Rate 18 10/23/18 04:48 Blood Pressure 158/82 10/23/18 04:48 O2 Sat by Pulse Oximetry (%) 97 10/23/18 07:37 Constitutional: Yes: Well Nourished, Calm Eyes: Yes: WNL HENT: Yes: WNL Neck: Yes: WNL Cardiovascular: Yes: Regular Rate and Rhythm, S1, S2 Respiratory: Yes: Rhonchi (few rhonchi) Gastrointestinal: Yes: Normal Bowel Sounds, Soft Extremities: Yes: Shortened, Other (contracted) Edema: No Labs: Problem List - Problems (1) COPD exacerbation Code(s): J44.1 - CHRONIC OBSTRUCTIVE PULMONARY DISEASE W (ACUTE) EXACERBATION (2) Scoliosis deformity of spine Code(s): M41.9 - SCOLIOSIS, UNSPECIFIED (3) Anoxic brain injury Code(s): G93.1 - ANOXIC BRAIN DAMAGE, NOT ELSEWHERE CLASSIFIED (4) Aspiration pneumonia Code(s): J69.0 - PNEUMONITIS DUE TO INHALATION OF FOOD AND VOMIT (5) Cerebral palsy Code(s): G80.9 - CEREBRAL PALSY, UNSPECIFIED (6) Functional quadriplegia Code(s): R53.2 - FUNCTIONAL QUADRIPLEGIA (7) Hypoxia Code(s): R09.02 - HYPOXEMIA (8) Seizure disorder Code(s): G40.909 - EPILEPSY, UNSP, NOT INTRACTABLE, WITHOUT STATUS EPILEPTICUS (9) Acute on chronic respiratory failure with hypoxia and hypercapnia Code(s): J96.21 - ACUTE AND CHRONIC RESPIRATORY FAILURE WITH HYPOXIA; J96.22 - ACUTE AND CHRONIC RESPIRATORY FAILURE WITH HYPERCAPNIA Assessment/Plan A/P Acute COPD Exacerbation improved r/o Aspiration Anoxic Brain Injury Seizure Disorder HTN Hyperlipidemia Fever - O2 to keep SpO2 >90% - aspiration precautions - BiPAP to assist in work of breathing as needed - DVT prophylaxis DR SUAREZ
[2018-10-23 13:34] LABS: BASO % 0.4 % (0-2.0); EOS % 1.5 % (0-4.5); HEMATOCRIT 43.1 % (32.4-45.2); HEMOGLOBIN 14.5 GM/dL (10.7-15.3); LYMPH % 10.1 % (8-40); MCH 30.3 pg (25.7-33.7); MCHC 33.6 g/dl (32.0-36.0); MEAN CELL VOLUME 90.4 fl (80-96); MEAN PLT VOLUME 7.6 fl (7.5-11.1); MONO % 8.3 % (3.8-10.2); NEUT % 79.7 % (42.8-82.8); PLATELET COUNT 453 K/MM3 (134-434); RBC 4.77 M/mm3 (3.60-5.2); RDW 14.2 % (11.6-15.6); WHITE BLOOD COUNT 16.7 K/mm3 (4.0-10.0)
--- NOTE | 2018-10-23 19:10 | PN ---
Progress Note, Physician - Current Medication List Current Medications: Active Medications Amlodipine Besylate (Norvasc -) 10 mg PO DAILY [facility] [place] Last Admin: 10/23/18 09:39 Dose: 10 mg Arformoterol Tartrate (Brovana (Restricted To Pulmonology/Resp) -) 1 amp NEB RBID [facility] Last Admin: 10/23/18 07:36 Dose: 1 amp Ascorbic Acid (Vitamin C -) 500 mg GT BID [facility] Last Admin: 10/23/18 09:39 Dose: 500 mg Atorvastatin Calcium (Lipitor -) 20 mg GT HS [facility] Last Admin: 10/22/18 23:12 Dose: 20 mg Bacitracin (Bacitracin -) 1 applic TP TID [facility] Last Admin: 10/23/18 14:27 Dose: 1 applic Budesonide (Pulmicort 0.5 Mg Nebulizer -) 1 amp NEB RBID [facility] [place] Last Admin: 10/23/18 07:36 Dose: 1 amp Calcium Carbonate (Calcium Carb Oral Suspension -) 500 mg GT BID [facility] [place] Last Admin: 10/23/18 09:41 Dose: 500 mg Heparin Sodium (Porcine) (Heparin -) 5,000 unit SQ BID [facility] Last Admin: 10/23/18 09:41 Dose: 5,000 unit Lactulose (Cephulac (Oral Use)) 10 gm GT DAILY [facility] [place] Last Admin: 10/23/18 09:41 Dose: 10 gm Metoclopramide HCl (Reglan Oral Solution -) 5 mg GT DAILY [facility] [place] Last Admin: 10/23/18 09:40 Dose: 5 mg Metoprolol Tartrate (Lopressor -) 100 mg PO BID [facility] [place] Last Admin: 10/23/18 09:40 Dose: 100 mg Potassium Chloride (Potassium Chloride Oral Liquid) 40 meq PO BID [facility] [place] Last Admin: 10/23/18 09:41 Dose: 40 meq Valsartan (Diovan -) 40 mg PO DAILY [facility] [place] Last Admin: 10/23/18 09:39 Dose: 40 mg Vancomycin HCl (Vancomycin Oral Solution) 125 mg PO Q6HPO [facility] Last Admin: 10/23/18 17:42 Dose: 125 mg - Objective Vital Signs: Vital Signs Temperature 97.7 F 10/23/18 14:00 Pulse Rate 85 10/23/18 14:00 Respiratory Rate 18 10/23/18 10:00 Blood Pressure 121/89 10/23/18 14:00 O2 Sat by Pulse Oximetry (%) 97 10/23/18 09:00 Constitutional: Yes: No Distress HENT: Yes: Atraumatic Neck: Yes: Supple Cardiovascular: Yes: Regular Rate and Rhythm Respiratory: Yes: Rhonchi Gastrointestinal: Yes: Normal Bowel Sounds, Other (peg in place) Extremities: Yes: Deformity Neurological: Yes: Alert Labs: CBC, BMP 10/23/18 12:55 10/21/18 07:15 INR, PTT INR 1.03 (0.83-1.09) 10/09/18 12:10 Problem List - Problems (1) COPD exacerbation Assessment/Plan: on prn oxygen duo nebs prn bipap prn Code(s): J44.1 - CHRONIC OBSTRUCTIVE PULMONARY DISEASE W (ACUTE) EXACERBATION (2) Anoxic brain injury Code(s): G93.1 - ANOXIC BRAIN DAMAGE, NOT ELSEWHERE CLASSIFIED (3) Aspiration pneumonia Assessment/Plan: on iv abx now aspiration precautins Code(s): J69.0 - PNEUMONITIS DUE TO INHALATION OF FOOD AND VOMIT (4) Cerebral palsy Code(s): G80.9 - CEREBRAL PALSY, UNSPECIFIED (5) Feeding by G-tube Assessment/Plan: on tube feeds Code(s): Z93.1 - GASTROSTOMY STATUS (6) Functional quadriplegia Code(s): R53.2 - FUNCTIONAL QUADRIPLEGIA (7) HLD (hyperlipidemia) Code(s): E78.5 - HYPERLIPIDEMIA, UNSPECIFIED Qualifiers: Hyperlipidemia type: pure hypercholesterolemia Qualified Code(s): E78.00 - Pure hypercholesterolemia, unspecified; E78.0 - Pure hypercholesterolemia (8) HTN (hypertension) Assessment/Plan: on meds monitor...bp stabilizing now Code(s): I10 - ESSENTIAL (PRIMARY) HYPERTENSION Qualifiers: Hypertension type: essential hypertension Qualified Code(s): I10 - Essential (primary) hypertension (9) Hypoxia Code(s): R09.02 - HYPOXEMIA (10) Seizure disorder Code(s): G40.909 - EPILEPSY, UNSP, NOT INTRACTABLE, WITHOUT STATUS EPILEPTICUS
--- NOTE | 2018-10-23 19:55 | PN ---
Progress Note, Physician History of Present Illness: Recurrent aspiration, remains on bipap and completed abx for recurrent aspiration. - Current Medication List Current Medications: Active Medications Amlodipine Besylate (Norvasc -) 10 mg PO DAILY [facility] Last Admin: 10/23/18 09:39 Dose: 10 mg Arformoterol Tartrate (Brovana (Restricted To Pulmonology/Resp) -) 1 amp NEB RBID [facility] Last Admin: 10/23/18 07:36 Dose: 1 amp Ascorbic Acid (Vitamin C -) 500 mg GT BID [facility] Last Admin: 10/23/18 09:39 Dose: 500 mg Atorvastatin Calcium (Lipitor -) 20 mg GT HS [facility] Last Admin: 10/22/18 23:12 Dose: 20 mg Bacitracin (Bacitracin -) 1 applic TP TID [facility] Last Admin: 10/23/18 14:27 Dose: 1 applic Budesonide (Pulmicort 0.5 Mg Nebulizer -) 1 amp NEB RBID [facility] Last Admin: 10/23/18 07:36 Dose: 1 amp Calcium Carbonate (Calcium Carb Oral Suspension -) 500 mg GT BID [facility] Last Admin: 10/23/18 09:41 Dose: 500 mg Heparin Sodium (Porcine) (Heparin -) 5,000 unit SQ BID [facility] Last Admin: 10/23/18 09:41 Dose: 5,000 unit Lactulose (Cephulac (Oral Use)) 10 gm GT DAILY [facility] Last Admin: 10/23/18 09:41 Dose: 10 gm Metoclopramide HCl (Reglan Oral Solution -) 5 mg GT DAILY [facility] Last Admin: 10/23/18 09:40 Dose: 5 mg Metoprolol Tartrate (Lopressor -) 100 mg PO BID [facility] Last Admin: 10/23/18 09:40 Dose: 100 mg Potassium Chloride (Potassium Chloride Oral Liquid) 40 meq PO BID [facility] Last Admin: 10/23/18 09:41 Dose: 40 meq Valsartan (Diovan -) 40 mg PO DAILY [facility] Last Admin: 10/23/18 09:39 Dose: 40 mg - Objective Vital Signs: Vital Signs Temperature 98.0 F 10/23/18 19:23 Pulse Rate 85 10/23/18 14:00 Respiratory Rate 18 10/23/18 19:23 Blood Pressure 145/86 10/23/18 19:23 O2 Sat by Pulse Oximetry (%) 97 10/23/18 09:00 Constitutional: Yes: No Distress, Calm Neck: Yes: Supple Cardiovascular: Yes: Regular Rate and Rhythm Respiratory: Yes: Regular, Diminished, On BiPap Gastrointestinal: Yes: Normal Bowel Sounds, Soft Edema: No Labs: CBC, BMP 10/23/18 12:55 10/21/18 07:15 INR, PTT INR 1.03 (0.83-1.09) 10/09/18 12:10 Assessment/Plan Problems (1) COPD exacerbation Code(s): J44.1 - CHRONIC OBSTRUCTIVE PULMONARY DISEASE W (ACUTE) EXACERBATION (2) Anoxic brain injury Code(s): G93.1 - ANOXIC BRAIN DAMAGE, NOT ELSEWHERE CLASSIFIED (3) Aspiration pneumonia Code(s): J69.0 - PNEUMONITIS DUE TO INHALATION OF FOOD AND VOMIT (4) Cerebral palsy Code(s): G80.9 - CEREBRAL PALSY, UNSPECIFIED (5) Feeding by G-tube Code(s): Z93.1 - GASTROSTOMY STATUS (6) Functional quadriplegia Code(s): R53.2 - FUNCTIONAL QUADRIPLEGIA (7) HLD (hyperlipidemia) Code(s): E78.5 - HYPERLIPIDEMIA, UNSPECIFIED (8) HTN (hypertension) Code(s): I10 - ESSENTIAL (PRIMARY) HYPERTENSION (9) Hypoxia Code(s): R09.02 - HYPOXEMIA (10) Seizure disorder Code(s): G40.909 - EPILEPSY, UNSP, NOT INTRACTABLE, WITHOUT STATUS EPILEPTICUS 1. COPD exacerbation improved 2. 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 Recurrent aspiration pneumonia 4. HTN BP improved 5. Hyperlipidemia 6. Seizure 7. Hyperkalemia PLAN: 1. Wean FIO2 and NIPPV as tolerated 2. Aspiration precautions, antibiotic course per id 3. Respiratory treatment 4. DVT prophylaxis 5. Hold enteral feeds if emesis 6. Continue Norvasc 10 mg QD, Lipitor 20 mg QHS, Lopressor 100 mg BID, Diovan 40 qd via G tube 7. D/c K supplement and monitor K level 8. D/c telemetry monitoring
[2018-10-23] MEDS: ATORVASTATIN CA 20 MG TABLET (FP) GT SCH (22:01)
[2018-10-24] MEDS: BACITRACIN 15 GM TUBE TOPICAL OINTMENT TP SCH ×3 (05:25→21:05)
[2018-10-24] MEDS: ARFORMOTEROL TARTRATE 15 MCG/2 ML VIAL NEB SCH ×2 (07:40→20:33)
[2018-10-24] MEDS: BUDESONIDE 0.5 MG/2 ML INH SUSP VIAL NEB SCH ×2 (07:40→20:33)
[2018-10-24 08:01] LABS: BILIRUBIN,TOTAL 0.4 mg/dL (0.2-1); CALCIUM 9.4 mg/dL (8.5-10.1); CREATININE 0.4 mg/dL (0.55-1.3); POTASSIUM 5.3 mmol/L (3.5-5.1); TOT PROT 7.5 g/dl (6.4-8.2)
[2018-10-24 08:05] LABS: BASO % 0.3 % (0-2.0); EOS % 0.9 % (0-4.5); HEMATOCRIT 41.1 % (32.4-45.2); HEMOGLOBIN 14.1 GM/dL (10.7-15.3); LYMPH % 8.3 % (8-40); MCH 30.7 pg (25.7-33.7); MCHC 34.2 g/dl (32.0-36.0); MEAN CELL VOLUME 89.9 fl (80-96); MEAN PLT VOLUME 7.7 fl (7.5-11.1); NEUT % 82.5 % (42.8-82.8); PLATELET COUNT 393 K/MM3 (134-434); RBC 4.57 M/mm3 (3.60-5.2); RDW 14.3 % (11.6-15.6); WHITE BLOOD COUNT 14.2 K/mm3 (4.0-10.0)
--- NOTE | 2018-10-24 09:23 | PN ---
Progress Note, Physician History of Present Illness: Weaned to NC and completed abx for recurrent aspiration. - Current Medication List Current Medications: Active Medications Amlodipine Besylate (Norvasc -) 10 mg PO DAILY [facility] Last Admin: 10/23/18 09:39 Dose: 10 mg Arformoterol Tartrate (Brovana (Restricted To Pulmonology/Resp) -) 1 amp NEB RBID [facility] Last Admin: 10/24/18 07:40 Dose: 1 amp Ascorbic Acid (Vitamin C -) 500 mg GT BID [facility] Last Admin: 10/23/18 22:01 Dose: 500 mg Atorvastatin Calcium (Lipitor -) 20 mg GT HS [facility] Last Admin: 10/23/18 22:01 Dose: 20 mg Bacitracin (Bacitracin -) 1 applic TP TID [facility] Last Admin: 10/24/18 05:25 Dose: 1 applic Budesonide (Pulmicort 0.5 Mg Nebulizer -) 1 amp NEB RBID [facility] Last Admin: 10/24/18 07:40 Dose: 1 amp Calcium Carbonate (Calcium Carb Oral Suspension -) 500 mg GT BID [facility] Last Admin: 10/23/18 22:00 Dose: Not Given Heparin Sodium (Porcine) (Heparin -) 5,000 unit SQ BID [facility] Last Admin: 10/23/18 22:01 Dose: 5,000 unit Lactulose (Cephulac (Oral Use)) 10 gm GT DAILY [facility] Last Admin: 10/23/18 09:41 Dose: 10 gm Metoclopramide HCl (Reglan Oral Solution -) 5 mg GT DAILY [facility] Last Admin: 10/23/18 09:40 Dose: 5 mg Metoprolol Tartrate (Lopressor -) 100 mg PO BID [facility] Last Admin: 10/23/18 22:01 Dose: 100 mg Potassium Chloride (Potassium Chloride Oral Liquid) 40 meq PO BID [facility] Last Admin: 10/23/18 22:00 Dose: 40 meq Valsartan (Diovan -) 40 mg PO DAILY [facility] Last Admin: 10/23/18 09:39 Dose: 40 mg - Objective Vital Signs: Vital Signs Temperature 97.9 F 10/24/18 05:22 Pulse Rate 80 10/24/18 05:22 Respiratory Rate 18 10/24/18 05:22 Blood Pressure 132/107 H 10/24/18 05:22 O2 Sat by Pulse Oximetry (%) 95 10/24/18 07:40 Constitutional: Yes: No Distress, Calm, Thin Neck: Yes: Supple Cardiovascular: Yes: Regular Rate and Rhythm Respiratory: Yes: Regular, Diminished, On Nasal O2 Gastrointestinal: Yes: Normal Bowel Sounds, Soft Edema: No Labs: CBC, BMP 10/24/18 05:38 10/24/18 05:38 INR, PTT INR 1.03 (0.83-1.09) 10/09/18 12:10 Assessment/Plan Problems (1) COPD exacerbation Code(s): J44.1 - CHRONIC OBSTRUCTIVE PULMONARY DISEASE W (ACUTE) EXACERBATION (2) Anoxic brain injury Code(s): G93.1 - ANOXIC BRAIN DAMAGE, NOT ELSEWHERE CLASSIFIED (3) Aspiration pneumonia Code(s): J69.0 - PNEUMONITIS DUE TO INHALATION OF FOOD AND VOMIT (4) Cerebral palsy Code(s): G80.9 - CEREBRAL PALSY, UNSPECIFIED (5) Feeding by G-tube Code(s): Z93.1 - GASTROSTOMY STATUS (6) Functional quadriplegia Code(s): R53.2 - FUNCTIONAL QUADRIPLEGIA (7) HLD (hyperlipidemia) Code(s): E78.5 - HYPERLIPIDEMIA, UNSPECIFIED (8) HTN (hypertension) Code(s): I10 - ESSENTIAL (PRIMARY) HYPERTENSION (9) Hypoxia Code(s): R09.02 - HYPOXEMIA (10) Seizure disorder Code(s): G40.909 - EPILEPSY, UNSP, NOT INTRACTABLE, WITHOUT STATUS EPILEPTICUS 1. COPD exacerbation improved 2. 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 Recurrent aspiration pneumonia 4. HTN BP improved 5. Hyperlipidemia 6. Seizure PLAN: 1. Wean FIO2 and NIPPV as tolerated 2. Aspiration precautions, antibiotic course per id 3. Respiratory treatment 4. DVT prophylaxis 5. Hold enteral feeds if emesis, d/c K repletion 6. Continue Norvasc 10 mg QD, Lipitor 20 mg QHS, Lopressor 100 mg BID, Diovan 40 qd via G tube 7. D/c planning
[2018-10-24] MEDS: VALSARTAN 40 MG TABLET (FP) PO SCH (10:23)
[2018-10-24] MEDS: METOPROLOL TARTRATE 50 MG TABLET (FP) PO SCH ×2 (10:23→21:03)
[2018-10-24] MEDS: LACTULOSE 20 GM/30 ML UDC (FOR ORAL USE ONLY) GT SCH (10:23)
[2018-10-24] MEDS: ASCORBIC ACID 500 MG TABLET (FP) GT SCH ×2 (10:24→21:05)
[2018-10-24] MEDS: amLODIPine BESYLATE 10 MG TABLET (FP) PO SCH (10:24)
[2018-10-24] MEDS: METOCLOPRAMIDE HCL 5 MG/5 ML UNIT DOSE CUP GT SCH (10:24)
[2018-10-24] MEDS: CALCIUM CARBONATE SUSPENSION - 500 MG/5 ML ML GT SCH ×2 (10:25→21:04)
[2018-10-24] MEDS: HEPARIN NA (PORCINE) 5,000 UNITS/ML 1ML VIAL SQ SCH (10:25)
--- NOTE | 2018-10-24 12:35 | PN ---
Progress Note, Physician History of Present Illness: pulmonary comfortable on nasal cannula ,-sob,-congestion - Current Medication List Current Medications: Active Medications Amlodipine Besylate (Norvasc -) 10 mg PO DAILY [facility] Last Admin: 10/24/18 10:24 Dose: 10 mg Arformoterol Tartrate (Brovana (Restricted To Pulmonology/Resp) -) 1 amp NEB RBID [facility] Last Admin: 10/24/18 07:40 Dose: 1 amp Ascorbic Acid (Vitamin C -) 500 mg GT BID [facility] Last Admin: 10/24/18 10:24 Dose: 500 mg Atorvastatin Calcium (Lipitor -) 20 mg GT HS [facility] Last Admin: 10/23/18 22:01 Dose: 20 mg Bacitracin (Bacitracin -) 1 applic TP TID [facility] Last Admin: 10/24/18 05:25 Dose: 1 applic Budesonide (Pulmicort 0.5 Mg Nebulizer -) 1 amp NEB RBID [facility] Last Admin: 10/24/18 07:40 Dose: 1 amp Calcium Carbonate (Calcium Carb Oral Suspension -) 500 mg GT BID [facility] Last Admin: 10/24/18 10:25 Dose: 500 mg Heparin Sodium (Porcine) (Heparin -) 5,000 unit SQ BID [facility] Last Admin: 10/24/18 10:25 Dose: 5,000 unit Lactulose (Cephulac (Oral Use)) 10 gm GT DAILY [facility] Last Admin: 10/24/18 10:23 Dose: 10 gm Metoclopramide HCl (Reglan Oral Solution -) 5 mg GT DAILY [facility] Last Admin: 10/24/18 10:24 Dose: 5 mg Metoprolol Tartrate (Lopressor -) 100 mg PO BID [facility] Last Admin: 10/24/18 10:23 Dose: 100 mg Valsartan (Diovan -) 40 mg PO DAILY [facility] Last Admin: 10/24/18 10:23 Dose: 40 mg - Objective Vital Signs: Vital Signs Temperature 97.9 F 10/24/18 10:00 Pulse Rate 83 10/24/18 10:00 Respiratory Rate 18 10/24/18 10:00 Blood Pressure 137/69 10/24/18 10:00 O2 Sat by Pulse Oximetry (%) 98 10/24/18 10:00 Constitutional: Yes: Well Nourished, Calm Eyes: Yes: WNL HENT: Yes: WNL Neck: Yes: WNL Cardiovascular: Yes: Regular Rate and Rhythm, S1, S2 Respiratory: Yes: Diminished Gastrointestinal: Yes: Normal Bowel Sounds, Soft Extremities: Yes: Shortened, Other (contracted) Edema: No Labs: CBC, BMP 10/24/18 05:38 10/24/18 05:38 INR, PTT INR 1.03 (0.83-1.09) 10/09/18 12:10 Problem List - Problems (1) COPD exacerbation Code(s): J44.1 - CHRONIC OBSTRUCTIVE PULMONARY DISEASE W (ACUTE) EXACERBATION (2) Scoliosis deformity of spine Code(s): M41.9 - SCOLIOSIS, UNSPECIFIED (3) Anoxic brain injury Code(s): G93.1 - ANOXIC BRAIN DAMAGE, NOT ELSEWHERE CLASSIFIED (4) Aspiration pneumonia Code(s): J69.0 - PNEUMONITIS DUE TO INHALATION OF FOOD AND VOMIT (5) Cerebral palsy Code(s): G80.9 - CEREBRAL PALSY, UNSPECIFIED (6) Functional quadriplegia Code(s): R53.2 - FUNCTIONAL QUADRIPLEGIA (7) Hypoxia Code(s): R09.02 - HYPOXEMIA (8) Seizure disorder Code(s): G40.909 - EPILEPSY, UNSP, NOT INTRACTABLE, WITHOUT STATUS EPILEPTICUS (9) Acute on chronic respiratory failure with hypoxia and hypercapnia Code(s): J96.21 - ACUTE AND CHRONIC RESPIRATORY FAILURE WITH HYPOXIA; J96.22 - ACUTE AND CHRONIC RESPIRATORY FAILURE WITH HYPERCAPNIA Assessment/Plan A/P Acute COPD Exacerbation improved r/o Aspiration Anoxic Brain Injury Seizure Disorder HTN Hyperlipidemia Fever resolved - O2 to keep SpO2 >90% - aspiration precautions - BiPAP to assist in work of breathing as needed - DVT prophylaxis - discharge planning DR SUAREZ
--- NOTE | 2018-10-24 14:12 | DS ---
Physical Examination Vital Signs: Vital Signs Temperature 97.9 F 10/24/18 10:00 Pulse Rate 83 10/24/18 10:00 Respiratory Rate 18 10/24/18 10:00 Blood Pressure 137/69 10/24/18 10:00 O2 Sat by Pulse Oximetry (%) 98 10/24/18 10:00 Constitutional: Yes: Calm HENT: Yes: Atraumatic Neck: Yes: Supple Cardiovascular: Yes: Regular Rate and Rhythm Respiratory: Yes: Rhonchi Gastrointestinal: Yes: Normal Bowel Sounds, Other (peg in place) Neurological: Yes: Alert Labs: CBC, BMP 10/24/18 05:38 10/24/18 05:38 Discharge Summary Reason For Visit: ACUTE EXACERBATION OF CHRONIC OBSTRUCTIVE PULMONAR Current Active Problems COPD exacerbation (Acute) Malfunction of percutaneous endoscopic gastrostomy (PEG) tube (Acute) PEG (percutaneous endoscopic gastrostomy) status (Acute) Scoliosis deformity of spine (Chronic) Condition: Stable - Instructions Diet, Activity, Other Instructions: follow upwbc count at [place] no more antibiotics d/w dr philly neal Disposition: [facility] - Home Medications Comprehensive Discharge Medication List: Ambulatory Orders Albuterol 2.5/Ipratropium 0.5 [Duoneb -] 1 neb IH QID 10/09/18 Alendronate Sodium 70 mg GT DAILY 10/09/18 Amlodipine Besylate [Norvasc -] 2.5 mg PO DAILY 10/09/18 Arformoterol Tartrate [Brovana] 15 mcg IH BID 10/09/18 Ascorbic Acid 500 mg GT BID 10/09/18 Bacitracin - [Bacitracin Topical Ointment -] 1 applic TP TID 10/09/18 Budesonide 1 mg IH BID 10/09/18 Calcium (Oyster Shell) [Os-Jamar 500MG -] 500 mg NR BID 10/09/18 Clotrimazole/Betamethasone Dip [Clotrimazole-Betamethasone Crm] 45 gm TP BID 09/20 Lactobacillus Acidophilus [Acidophilus] 1 each PO BID 10/09/18 Lactulose 10 gm GT DAILY 10/09/18 Metoclopramide HCl 5 mg PO DAILY 10/09/18 Metoprolol Tartrate 25 mg PO BID 10/09/18 Multivitamin/Iron/Folic Acid [Centrum Adults Tablet] 1 each GT DAILY 10/09/18 Olopatadine HCl 2.5 ml OP DAILY 10/09/18 Protein Supplement [Promod] 30 ml GT DAILY 10/09/18 Silver Sulfadiazine 1% Top Cr [Silvadene -] 1 applic TP DAILY 10/09/18 Simvastatin 40 mg GT DAILY 10/09/18 Zinc Oxide 20% Topical Oint 60 gm TD ASDIR 10/09/18 lisa hermosillo
--- NOTE | 2018-10-24 15:09 | PN ---
Progress Note, Physician - Current Medication List Current Medications: Active Medications Amlodipine Besylate (Norvasc -) 10 mg PO DAILY [facility] Last Admin: 10/24/18 10:24 Dose: 10 mg Arformoterol Tartrate (Brovana (Restricted To Pulmonology/Resp) -) 1 amp NEB RBID [facility] Last Admin: 10/24/18 07:40 Dose: 1 amp Ascorbic Acid (Vitamin C -) 500 mg GT BID [facility] Last Admin: 10/24/18 10:24 Dose: 500 mg Atorvastatin Calcium (Lipitor -) 20 mg GT HS [facility] Last Admin: 10/23/18 22:01 Dose: 20 mg Bacitracin (Bacitracin -) 1 applic TP TID [facility] Last Admin: 10/24/18 13:18 Dose: 1 applic Budesonide (Pulmicort 0.5 Mg Nebulizer -) 1 amp NEB RBID [facility] Last Admin: 10/24/18 07:40 Dose: 1 amp Calcium Carbonate (Calcium Carb Oral Suspension -) 500 mg GT BID [facility] Last Admin: 10/24/18 10:25 Dose: 500 mg Heparin Sodium (Porcine) (Heparin -) 5,000 unit SQ BID [facility] Last Admin: 10/24/18 10:25 Dose: 5,000 unit Lactulose (Cephulac (Oral Use)) 10 gm GT DAILY [facility] Last Admin: 10/24/18 10:23 Dose: 10 gm Metoclopramide HCl (Reglan Oral Solution -) 5 mg GT DAILY [facility] Last Admin: 10/24/18 10:24 Dose: 5 mg Metoprolol Tartrate (Lopressor -) 100 mg PO BID [facility] Last Admin: 10/24/18 10:23 Dose: 100 mg Valsartan (Diovan -) 40 mg PO DAILY [facility] Last Admin: 10/24/18 10:23 Dose: 40 mg - Objective Vital Signs: Vital Signs Temperature 97.9 F 10/24/18 10:00 Pulse Rate 83 10/24/18 10:00 Respiratory Rate 18 10/24/18 10:00 Blood Pressure 137/69 10/24/18 10:00 O2 Sat by Pulse Oximetry (%) 98 10/24/18 10:00 Labs: CBC, BMP 10/24/18 05:38 10/24/18 05:38 INR, PTT INR 1.03 (0.83-1.09) 10/09/18 12:10
[2018-10-24 20:39] VITALS: BP 115/73; PULSE 100; TEMP 98
[2018-10-24] MEDS: ATORVASTATIN CA 20 MG TABLET (FP) GT SCH (21:05)
== END 2018-10-24 21:45 | DRG 177 ==
LOC: JER 11:29 → JERBED 15:11 → J4W 10-10 17:47
PROVIDERS: ADMIT Internal Medicine; ATTEND Internal Medicine
PROC: 5A09557 Assistance with Respiratory Ventilation, Greater than 96 Consecutive Hours, Continuous Positive Airway Pressure (ICD-10-PCS; principal; 2018-10-09)
PROC: 3E0F7GC Introduction of Other Therapeutic Substance into Respiratory Tract, Via Natural or Artificial Opening (ICD-10-PCS; 2018-10-09)
PROC: 3E0H76Z Introduction of Nutritional Substance into Lower GI, Via Natural or Artificial Opening (ICD-10-PCS; 2018-10-09)
DX: J69.0 Pneumonitis due to inhalation of food and vomit (principal); J96.21 Acute and chronic respiratory failure with hypoxia; J96.22 Acute and chronic respiratory failure with hypercapnia; R53.2 Functional quadriplegia; J44.1 Chronic obstructive pulmonary disease with (acute) exacerbation; G93.1 Anoxic brain damage, not elsewhere classified; G80.8 Other cerebral palsy; I11.9 Hypertensive heart disease without heart failure; G40.909 Epilepsy, unspecified, not intractable, without status epilepticus; Z93.1 Gastrostomy status; Z86.73 Personal history of transient ischemic attack (TIA), and cerebral infarction without residual deficits; E78.5 Hyperlipidemia, unspecified; M41.80 Other forms of scoliosis, site unspecified; E66.9 Obesity, unspecified; Z68.30 Body mass index [BMI] 30.0-30.9, adult; F79 Unspecified intellectual disabilities
CPT/HCPCS: 36415; 36600; 71045-TC-FY; 80053; 80061; 81003; 82550; 82803; 83605; 83721; 83735; 83880; 84443; 84484; 85025; 85610; 86850; 86900; 86901; 87040; 87086; 87186; 87324; 87449; 93005; 93010; 94640; 94660; 99285-25; J1644; J7030